=== PATIENT | male | born 1970 | race Caucasian/White ===

== ENCOUNTER → 2020-05-13 09:35 | Outpatient (BNVA) | payer MEDICARE, OTHER, SELFPAY | PROVIDERS: PCP Internal Medicine; Referring Provider Internal Medicine; Visit Provider Surgery Vascular Surgery | DX: I83.11 Varicose veins of right lower extremity with inflammation (principal); Z98.890 Other specified postprocedural states | CPT/HCPCS: 99213 ==

== ENCOUNTER 2020-06-11 09:37 | Outpatient (REF) | payer MEDICARE, OTHER, SELFPAY ==
[2020-06-11 13:44] LABS: Estimated Average Glucose 137 mg/dL; Hemoglobin A1c % 6.4 %
[2020-06-11 14:20] LABS: Alanine Aminotransferase 22 U/L (0-40); Albumin Level 4.3 g/dL (3.5-5.0); Alkaline Phosphatase 44 U/L (39-117); Anion Gap 13 (12-20); Aspartate Amino Transferase 17 U/L (5-37); Bilirubin Total 0.4 mg/dL (0.0-1.0); Blood Urea Nitrogen 14 mg/dL (9-16); Calcium 8.7 mg/dL (8.4-10.2); Carbon Dioxide 30 mmol/L (22-29); Chloride 101 mmol/L (96-108); Cholesterol 162 mg/dL; Estimated Glomerular Filt Rate > 60; Glucose Fasting 117 mg/dL (60-99); HDL Cholesterol 49 mg/dL; LDL Cholesterol Calculated 82 mg/dl; Potassium 4.8 mmol/l (3.3-5.1); Sodium 139 mmol/L (135-145); Total Protein 7.5 g/dL (6.5-8.0); Triglycerides 159 mg/dL
[2020-06-11 14:23] LABS: Creatinine Urine 132.92 mg/dL; Microalbum/Creatinine Ratio Ur 4.5 ug/mg cr
== END 2020-06-11 09:38 | disposition home or self-care (01) ==
LOC: HO.HMGCLDS 09:37
PROVIDERS: PCP Internal Medicine; Visit Provider Internal Medicine
DX: E11.59 Type 2 diabetes mellitus with other circulatory complications (principal); I10 Essential (primary) hypertension; I73.9 Peripheral vascular disease, unspecified; L97.909 Non-pressure chronic ulcer of unspecified part of unspecified lower leg with unspecified severity; I83.009 Varicose veins of unspecified lower extremity with ulcer of unspecified site
CPT/HCPCS: 80053; 80061; 82043; 83036

== ENCOUNTER 2020-10-19 08:25 | Outpatient (REF) | payer MEDICARE, OTHER, SELFPAY ==
[2020-10-19 11:32] LABS: Estimated Average Glucose 137 mg/dL; Hemoglobin A1c % 6.4 %
[2020-10-19 11:39] LABS: Alanine Aminotransferase 25 U/L (0-40); Albumin Level 4.3 g/dL (3.5-5.0); Alkaline Phosphatase 48 U/L (39-117); Anion Gap 13 (12-20); Aspartate Amino Transferase 21 U/L (5-37); Bilirubin Total 0.8 mg/dL (0.0-1.0); Blood Urea Nitrogen 16 mg/dL (9-16); Calcium 8.8 mg/dL (8.4-10.2); Carbon Dioxide 28 mmol/L (22-29); Chloride 104 mmol/L (96-108); Cholesterol 155 mg/dL; Estimated Glomerular Filt Rate > 60; Glucose Fasting 123 mg/dL (60-99); HDL Cholesterol 44 mg/dL; LDL Cholesterol Calculated 90 mg/dl; Potassium 4.5 mmol/L (3.3-5.1); Sodium 140 mmol/L (135-145); Total Protein 7.3 g/dL (6.5-8.0); Triglycerides 107 mg/dL
[2020-10-19 12:08] LABS: Microalbum/Creatinine Ratio Ur 7.1 ug/mg cr
== END 2020-10-19 08:26 | disposition home or self-care (01) ==
LOC: HO.HMGCLDS 08:25
PROVIDERS: PCP Internal Medicine; Visit Provider Internal Medicine
DX: E11.59 Type 2 diabetes mellitus with other circulatory complications (principal); I10 Essential (primary) hypertension; I73.9 Peripheral vascular disease, unspecified; L97.909 Non-pressure chronic ulcer of unspecified part of unspecified lower leg with unspecified severity; I83.009 Varicose veins of unspecified lower extremity with ulcer of unspecified site
CPT/HCPCS: 36415; 80053; 80061; 82043; 83036

== ENCOUNTER 2020-10-21 11:08 | Outpatient (REF) | payer MEDICARE, OTHER, SELFPAY ==
[2020-10-21 16:25] LABS: CT PCR NOT DETECTED (Not Detect.); NG PCR NOT DETECTED (Not Detect.)
[2020-10-22 08:19] LABS: HIV AB/AG Nonreactive (Nonreactive); HIV Num 1 0.09 S/CO (0.00-0.99)
[2020-10-22 08:39] LABS: Syphilis Screen Nonreactive (Nonreactive)
== END 2020-10-21 11:09 | disposition home or self-care (01) ==
LOC: HO.HMGCLDS 11:08
PROVIDERS: PCP Internal Medicine; Visit Provider Internal Medicine
DX: E11.9 Type 2 diabetes mellitus without complications (principal)
CPT/HCPCS: 86780; 87389; 87491; 87591

== ENCOUNTER 2020-11-25 08:47 | Outpatient (RCR) | payer MEDICARE, OTHER, SELFPAY | END 2021-02-22 10:00 | disposition home or self-care (01) | LOC: HO.WCC 08:47 | PROVIDERS: PCP Internal Medicine; Visit Provider Surgery | DX: E11.622 Type 2 diabetes mellitus with other skin ulcer (principal); L97.322 Non-pressure chronic ulcer of left ankle with fat layer exposed; S80.12XD Contusion of left lower leg, subsequent encounter; I87.312 Chronic venous hypertension (idiopathic) with ulcer of left lower extremity; L23.9 Allergic contact dermatitis, unspecified cause; L03.90 Cellulitis, unspecified; D68.59 Other primary thrombophilia; I10 Essential (primary) hypertension; Z79.01 Long term (current) use of anticoagulants; Z87.891 Personal history of nicotine dependence; Z86.718 Personal history of other venous thrombosis and embolism; Z79.84 Long term (current) use of oral hypoglycemic drugs; Z79.2 Long term (current) use of antibiotics | CPT/HCPCS: 11042; 15271; 15275; 29581; 99212; Q4187 ==

== ENCOUNTER 2021-01-10 18:11 | Emergency (ER) | payer MEDICARE, OTHER, SELFPAY ==
--- NOTE | ~2021-01-10 | US_ITS ---
EXAMINATION: US VENOUS ULTRASOUND WITH DOPPLER LOWER EXTREMITY, LEFT CLINICAL INFORMATION: Swelling and redness COMPARISON: Directly compared to the 03/15/2020 ultrasound TECHNIQUE: Ultrasound of the deep veins is performed from the hip to the calf with compression sonography and color and pulse Doppler assessment. Spectral analysis with color-flow imaging is performed. Patient has a bandage in the region of the calf which significantly limits evaluation of this area FINDINGS: Chronic appearing nonocclusive thrombus appears to be present in the common femoral vein and femoral vein. The popliteal vein and grossly patent. Calf veins are not able to be assessed due to overlying bandage. There is no significant popliteal fossa cyst. US/US venous duplex LE LT IMPRESSION: Likely chronic appearing nonocclusive thrombus within the femoral vein and common femoral vein. The prior 2019 study had demonstrated changes in the popliteal femoral vein. The patient reports a history of a chronic thrombus on the left side as well.
[2021-01-10 18:28] VITALS: BP 177/101; PULSE 77; RESP 16; TEMP 36.9; O2SAT 97; BMI 45.0
--- NOTE | 2021-01-10 20:43 | ED_ITS ---
HPI - General Adult General Chief complaint: General Medical Stated complaint: leg redness Time Seen by Provider: 01/10/21 19:37 Source: patient Mode of arrival: ambulatory Limitations: no limitations History of Present Illness HPI narrative: 50-year-old male with a past medical history of a clotting disorder on Coumadin, hypertension, hyperlipidemia and diabetes here with complaints of redness, swelling to the left medial knee. He tells me he had did have a fall about 1 week ago but never fell on the knee and just felt like he strained it. Over the last few days he has noticed some warmth, swelling and redness to the medial aspect of the knee. No pain with weight-bearing or range of motion. No posterior knee pain. No calf pain or swelling. He does have chronic wound to the medial ankle with a Unna boot on. The patient tells me that this wound has no redness or drainage or swelling and appears well. He denies any fevers or chills. He tells me that his blood sugars have been running stable. Related Data Home Medications Medication Instructions Recorded Confirmed cholecalciferol (vitamin D3) 25 25 mcg PO DAILY 05/13/20 10/21/20 mcg (1,000 unit) capsule vitamin B complex 1 tab PO DAILY 05/13/20 10/21/20 lancets #100 ea 06/17/20 10/21/20 Previous Rx's Medication Instructions Recorded warfarin 7.5 mg tablet 7.5 mg PO DAILY #90 tab 06/30/20 clobetasol 0.05 % topical cream 1 appl TOPICAL BID #45 g 07/06/20 simvastatin 40 mg tablet 40 mg PO DAILY 30 Days #90 tab 09/29/20 metformin 750 mg tablet,extended 1,500 mg PO DAILY #180 tab 10/21/20 release 24 hr atenolol 25 mg tablet 25 mg PO DAILY #90 tab 12/13/20 cephalexin 500 mg PO TID #21 cap 01/10/21 Allergies Allergy/AdvReac Type Severity Reaction Status Date / Time A & D Allergy Unknown anaphylaxis Verified 05/26/20 14:29 bacitracin [BACITRACIN] Allergy Unknown SEIZURE Verified 05/26/20 14:29 doxycycline Allergy Unknown rash Verified 05/26/20 14:29 Sulfa (Sulfonamide Allergy Unknown SWELLING Verified 05/26/20 14:29 Antibiotics) Review of Systems Review of Systems: Yes all other systems are reviewed and are negative Constitutional: Constitutional: Reports no additional constitutional complaints, Denies body ache(s), Denies chills, Denies fever(s), Denies headache(s) and Denies weakness Eyes: Eyes: Reports no additional eye complaints and Denies change in vision ENT: Reports system reviewed and no additional complaints, except as documented, Denies dizziness, Denies headache(s), Denies nasal congestion, Denies nasal discharge and Denies neck pain Cardiovascular: Cardiovascular: Reports no additional cardiovascular complaints, Denies chest pain, Denies leg edema and Denies dyspnea Respiratory: Respiratory: Reports no additional respiratory complaints, Denies cough and Denies dyspnea Gastrointestinal: Gastrointestinal: Reports no additional gastrointestinal complaints, Denies abdominal pain, Denies diarrhea, Denies nausea and Denies vomiting Genitourinary: Genitourinary: Denies urinary incontinence Musculoskeletal: Musculoskeletal: Reports no additional musculoskeletal complaints, Denies back pain, Denies arthralgias, Denies joint swelling, Denies neck pain, Denies numbness and Denies tingling Integumentary/Breasts: Skin/Breast: Reports system reviewed and no additional complaints, except as docu, Reports swelling, Reports erythema and Denies rash Neurologic: Reports system reviewed and no additional complaints, except as documented, Denies Abnormal speech present, Denies dizziness, Denies headache(s), Denies numbness, Denies tingling and Denies weakness PMFSH Past Medical History Attestation statement: The following information was validated with the patient. Source: old records reviewed and nursing notes reviewed Medical History DM type 2 (diabetes mellitus, type 2) DVT (deep venous thrombosis) Factor 5 Leiden mutation, heterozygous Hyperlipidemia Hypertension Obesity PVD (peripheral vascular disease) SOB (shortness of breath) Venous (peripheral) insufficiency Surgical History H/O vascular surgery Family History Family History Father CVD (cardiovascular disease) Mother CVD (cardiovascular disease) Daughter No problems noted. Son No problems noted. Social History Social History Unable to assess alcohol history related to: Unknown Advance Directives: No Advance Directives Information Provided: No Physical Exam Vital Signs: Vital Signs: Last Vital Signs Temp 98.4 F 01/10/21 18:28 Pulse 77 01/10/21 18:28 Resp 16 01/10/21 18:28 BP 177/101 H 01/10/21 18:28 Pulse Ox 97 01/10/21 18:28 Body Mass Index 45.0 Const: General: cooperative, healthy appearing, comfortable and no acute distress Orientation/consciousness: patient oriented x3 Limitations: no limitations HENMT: Head: Yes normal to inspection Ears: hearing grossly normal bilaterally General nose exam: Normal external nose present Face and sinus: Yes normal facial exam Mouth: Normal oral and palatal mucosa present Throat: Yes posterior oropharynx normal Eyes: General: appearance normal, both eyes and all related structures Pupils: Equal, round and reactive pupils present Neck: Neck: Yes normal visual inspection Chest: Chest palpation & inspection: normal inspection of the chest Resp: Effort & Inspection: normal respiratory effort Auscultation: clear to auscultation bilaterally Cardio: Rate: regular rate Rhythm: regular rhythm Peripheral pulses: Peripheral pulses 2+ throughout GI: Inspection: Yes normal to inspection Palpation (GI): Soft to palpation and nontender Auscultation: normal bowel sounds Back/Spine/Pelvis: Thoracic/Lumbar Spine: thoracic and lumbar spine normal to inspection Skin: General skin exam: no rashes or lesions noted Neuro: General: patient oriented x3, no focal motor deficits and normal sensation to monofilament Cranial nerves: Yes Equal, round and reactive pupils present Cognition (Neuro): normal cognition Speech: No Abnormal speech present Gait exam (Neuro): Normal gait present Motor exam (neuro): 5/5 motor strength present throughout Extrem: Other: To the medial aspect of the left knee there is approximately 10 cm circular area of erythema, warmth and swelling. It extends just to the posterior knee but there is no posterior swelling or discomfort. No calf pain, swelling General: Yes normal to inspection Course Course Course Narrative: 50-year-old male here with a circular area of redness, warmth and tenderness to the medial aspect of the left knee. There is a remote report of injury. Patient is on Coumadin for DVT history and his INR yesterday was 2.4. Will check ultrasound to rule out DVT. 2114-ultrasound shows chronic nonocclusive thrombus unchanged from previous. No acute DVT. Will treat with course of cephalexin for presumed cellulitis. Patient was given a copy of the report. The area was marked with a skin marker. Reviewed worrisome signs and symptoms such as increasing redness, swelling, fever and when to return to the emergency department. Comfortable with disc harge home. Medical Decision Making MDM Narrative Medical decision making narrative: DVT, cellulitis Medical Records Medical records reviewed: Yes I reviewed the patient's medical records. Lab Data Lab results reviewed: Yes I reviewed the patient's lab results. Imaging Data Venous US: Attestation: I personally reviewed and interpreted this imaging study as follows: Radiologist's impression: IMPRESSION: Likely chronic appearing nonocclusive thrombus within the femoral vein and common femoral vein. The prior 2019 study had demonstrated changes in the popliteal femoral vein. The patient reports a history of a chronic thrombus on the left side as well. Discharge Plan Discharge Clinical Impression: Cellulitis Qualifiers: Site of cellulitis: extremity Site of cellulitis of extremity: lower extremity Laterality: left Qualified Code(s): L03.116 - Cellulitis of left lower limb Patient Disposition: Home, Self-Care Instructions: Cellulitis (ED) Additional Instructions: Your ultrasound does show a chronic blood clot in the left leg. It is unchanged from previous. Continue your Coumadin We are treating you for presumed cellulitis The area was marked with a skin marker. Please return for increasing redness, swelling or fever Prescriptions: New cephalexin 500 mg capsule 500 mg PO TID Qty: 21 RF: 0 No Action warfarin 7.5 mg tablet 7.5 mg PO DAILY Qty: 90 RF: 3 clobetasol 0.05 % cream 1 appl topical BID Qty: 45 RF: 3 simvastatin 40 mg tablet 40 mg PO DAILY 30 Days Qty: 90 RF: 3 atenolol 25 mg tablet 25 mg PO DAILY Qty: 90 RF: 0 (DME) lancets [OneTouch UltraSoft Lancets] Misc See Rx Instructions .ROUTE .MEDSUPPLY Qty: 100 RF: 0 metformin 750 mg tablet extended release 24 hr 1,500 mg PO DAILY Qty: 180 RF: 3 cholecalciferol (vitamin D3) 25 mcg (1,000 unit) capsule 25 mcg PO DAILY RF: 0 vitamin B complex [B Complex-Vitamin B12] Tablet 1 tab PO DAILY RF: 0 Referrals: Esha Corbin MD [Primary Care Provider] - 2 days
== END 2021-01-10 21:23 | disposition home or self-care (01) ==
PROVIDERS: Emergency Provider Internal Medicine; PCP Internal Medicine
DX: L03.116 Cellulitis of left lower limb (principal); I82.512 Chronic embolism and thrombosis of left femoral vein; I10 Essential (primary) hypertension; E11.9 Type 2 diabetes mellitus without complications; Z79.01 Long term (current) use of anticoagulants
CPT/HCPCS: 93971; 99283

== ENCOUNTER 2021-01-24 10:56 | Outpatient (REF) | payer MEDICARE, OTHER, SELFPAY ==
[2021-01-24 14:17] LABS: Creatinine Urine 152.51 mg/dL; Microalbum/Creatinine Ratio Ur 8.5 ug/mg cr
[2021-01-24 14:20] LABS: Estimated Average Glucose 143 mg/dL; Hemoglobin A1c % 6.6 %
[2021-01-24 14:24] LABS: Alanine Aminotransferase 27 U/L (0-40); Albumin Level 4.4 g/dL (3.5-5.0); Alkaline Phosphatase 52 U/L (39-117); Anion Gap 14 (12-20); Aspartate Amino Transferase 22 U/L (5-37); Bilirubin Total 0.5 mg/dL (0.0-1.0); Blood Urea Nitrogen 14 mg/dL (9-16); Calcium 9.2 mg/dL (8.4-10.2); Carbon Dioxide 25 mmol/L (22-29); Chloride 104 mmol/L (96-108); Estimated Glomerular Filt Rate > 60; Glucose Fasting 120 mg/dL (60-99); Potassium 4.6 mmol/L (3.3-5.1); Sodium 138 mmol/L (135-145); Total Protein 7.6 g/dL (6.5-8.0)
[2021-01-24 14:33] LABS: Syphilis Screen Nonreactive (Nonreactive)
[2021-01-25 00:05] LABS: CT PCR NOT DETECTED (Not Detect.); NG PCR NOT DETECTED (Not Detect.)
[2021-01-25 09:15] LABS: HBsAGNum1 0.23 S/CO (0.00-0.99); Hepatitis B Surface Antigen Negative (Negative)
[2021-01-25 10:14] LABS: HIV AB/AG Nonreactive (Nonreactive); HIV Num 1 0.06 S/CO (0.00-0.99); ~HepC Num1 0.27 S/CO (0.00-0.79); ~Hepatitis C Antibody Nonreactive (Nonreactive)
== END 2021-01-24 10:57 | disposition home or self-care (01) ==
LOC: HO.HMGCLDS 10:56
PROVIDERS: PCP Internal Medicine; Visit Provider Internal Medicine
DX: Z01.84 Encounter for antibody response examination (principal); Z11.3 Encounter for screening for infections with a predominantly sexual mode of transmission; Z11.4 Encounter for screening for human immunodeficiency virus [HIV]; E11.9 Type 2 diabetes mellitus without complications; E78.5 Hyperlipidemia, unspecified; I10 Essential (primary) hypertension; A64 Unspecified sexually transmitted disease
CPT/HCPCS: 80053; 82043; 83036; 86780; 86803; 87340; 87389; 87491; 87591

== ENCOUNTER 2021-02-18 21:28 | Emergency (ER) | payer MEDICARE, OTHER, SELFPAY ==
[2021-02-18 21:58] VITALS: BP 146/89; PULSE 87; RESP 18; TEMP 36.6; O2SAT 97; BMI 45.0
--- NOTE | 2021-02-18 23:22 | ED.SKABFB ---
HPI - Skin/Abscess/Foreign Bdy General Chief complaint: Skin/Abscess/Foreign Body Stated complaint: nuñez pain Time Seen by Provider: 02/18/21 23:19 Source: patient Mode of arrival: ambulatory Limitations: no limitations History of Present Illness HPI narrative: Patient w3ith history of cellulitis in the left leg with poor circulation treated with Keflex for 10 days off medicine for the last 10 days noticed slight redness and warmth the left nuñez area at this time for last 2- 3 days patient does have a small open wound in the heel of the same leg which is getting better followed by wound clinic no fever no chills Related Data Home Medications Medication Instructions Recorded Confirmed cholecalciferol (vitamin D3) 25 25 mcg PO DAILY 05/13/20 01/27/21 mcg (1,000 unit) capsule vitamin B complex 1 tab PO DAILY 05/13/20 01/27/21 Previous Rx's Medication Instructions Recorded warfarin 7.5 mg tablet 7.5 mg PO DAILY #90 tab 06/30/20 clobetasol 0.05 % topical cream 1 appl TOPICAL BID #45 g 07/06/20 simvastatin 40 mg tablet 40 mg PO DAILY 30 Days #90 tab 09/29/20 metformin 750 mg tablet,extended 1,500 mg PO DAILY #180 tab 10/21/20 release 24 hr atenolol 25 mg tablet 25 mg PO DAILY #90 tab 02/04/21 lancets #100 ea 02/04/21 blood sugar diagnostic #100 ea 02/08/21 cephalexin 500 mg PO QID 10 Days #40 cap 02/18/21 doxycycline hyclate 100 mg PO BID #20 cap 02/18/21 Allergies Allergy/AdvReac Type Severity Reaction Status Date / Time A & D Allergy Unknown anaphylaxis Verified 01/27/21 13:02 bacitracin [BACITRACIN] Allergy Unknown SEIZURE Verified 01/27/21 13:02 Sulfa (Sulfonamide Allergy Unknown SWELLING Verified 01/27/21 13:02 Antibiotics) Review of Systems Review of Systems: Yes all other systems are reviewed and are negative PMFSH Past Medical History Medical History DM type 2 (diabetes mellitus, type 2) DVT (deep venous thrombosis) Factor 5 Leiden mutation, heterozygous Hyperlipidemia Hypertension Obesity PVD (peripheral vascular disease) SOB (shortness of breath) STD (male) Venous (peripheral) insufficiency Surgical History H/O vascular surgery Family History Family History Father CVD (cardiovascular disease) Mother CVD (cardiovascular disease) Daughter No problems noted. Son No problems noted. Social History Social History Unable to assess alcohol history related to: Unknown Advance Directives: No Advance Directives Information Provided: No Physical Exam Vital Signs: Vital Signs: Last Vital Signs Temp 97.9 F 02/18/21 21:58 Pulse 87 02/18/21 21:58 Resp 18 02/18/21 21:58 BP 146/89 H 02/18/21 21:58 Pulse Ox 97 02/18/21 21:58 Body Mass Index 45.0 Const: General: comfortable and no acute distress Resp: Effort & Inspection: normal respiratory effort Auscultation: clear to auscultation bilaterally Cardio: Rate: regular rate Rhythm: regular rhythm Heart sounds: S1 normal heart sound present and S2 normal heart sound present Extrem: Upper/lower leg/hip images: 1. Slight erythema 10 x 10 cm area no open wound local warmth+ no calf tenderness MDM - Skin/Abscess/Foreign Bdy MDM Narrative Medical decision making narrative: Patient with early cellulitis left leg on Coumadin unlikely to be DVT as his INR was 2.1 today. Will treat patient with doxycycline and Keflex advised to follow with Wound Clinic/PCP if not better Discharge Plan Discharge Clinical Impression: Cellulitis Patient Disposition: Home, Self-Care Instructions: Cellulitis (ED) Additional Instructions: Take antibiotics as prescribed Follow-up with your wound clinic/PCP report to ER if redness/swelling get worse Prescriptions: New doxycycline hyclate 100 mg capsule 100 mg PO BID Qty: 20 RF: 0 cephalexin 500 mg capsule 500 mg PO QID 10 Days Qty: 40 RF: 0 No Action warfarin 7.5 mg tablet 7.5 mg PO DAILY Qty: 90 RF: 3 clobetasol 0.05 % cream 1 appl topical BID Qty: 45 RF: 3 simvastatin 40 mg tablet 40 mg PO DAILY 30 Days Qty: 90 RF: 3 (DME) lancets [OneTouch UltraSoft Lancets] Misc See Rx Instructions .ROUTE .MEDSUPPLY Qty: 100 RF: 6 atenolol 25 mg tablet 25 mg PO DAILY Qty: 90 RF: 3 (DME) blood sugar diagnostic Strip See Rx Instructions .ROUTE .MEDSUPPLY Qty: 100 RF: 3 metformin 750 mg tablet extended release 24 hr 1,500 mg PO DAILY Qty: 180 RF: 3 cholecalciferol (vitamin D3) 25 mcg (1,000 unit) capsule 25 mcg PO DAILY RF: 0 vitamin B complex [B Complex-Vitamin B12] Tablet 1 tab PO DAILY RF: 0 Interventions: ED Discharge Assessment Last Done: 02/18/21 23:51 Discharge Date/Time: 02/18/21 23:52
[2021-02-18] MEDS: cephALEXin 500 MG CAPSULE PO (23:46)
== END 2021-02-18 23:52 | disposition home or self-care (01) ==
PROVIDERS: Emergency Provider Internal Medicine; PCP Internal Medicine
DX: L03.116 Cellulitis of left lower limb (principal); D68.51 Activated protein C resistance; I10 Essential (primary) hypertension; E11.9 Type 2 diabetes mellitus without complications; Z86.718 Personal history of other venous thrombosis and embolism; Z79.01 Long term (current) use of anticoagulants; Z79.84 Long term (current) use of oral hypoglycemic drugs; Z79.899 Other long term (current) drug therapy
CPT/HCPCS: 99283

== ENCOUNTER → 2021-02-24 09:49 | Outpatient (BNVA) | payer MEDICARE, OTHER, SELFPAY | PROVIDERS: PCP Internal Medicine; Visit Provider Surgery Vascular Surgery | DX: I83.12 Varicose veins of left lower extremity with inflammation (principal) | CPT/HCPCS: 99212 ==

== ENCOUNTER 2021-03-09 07:40 | Outpatient (REF) | payer MEDICARE, OTHER, SELFPAY ==
--- NOTE | ~2021-03-09 | US_ITS ---
EXAMINATION: BILATERAL LOWER EXTREMITY VENOUS ULTRASOUND (Reflux Exam) CLINICAL INDICATION: This is a 50-year-old male with venous insufficiency. Status post treatment. COMPARISON: None. TECHNIQUE: Color flow triplex imaging and compression Doppler was performed to evaluate both the deep and the superficial systems bilaterally. To evaluate the superficial system, the examination was performed in the upright position. Color-flow Doppler ultrasound and compression ultrasound were utilized. In addition, maneuvers were utilized to demonstrate reflux. FINDINGS: 1. DEEP VENOUS ULTRASOUND OF THE RIGHT LOWER EXTREMITY: Common Femoral Vein: There is reflux in the right common femoral vein with the reflux time of 1208 ms. Femoral vein: Compressible, normal color flow and augmentation. Popliteal Vein: Compressible, normal augmentation. Deep Reflux: There is deep vein reflux in the right common femoral vein.. There is no evidence of a Nunez's cyst. 2. SUPERFICIAL ULTRASOUND WITH DOPPLER OF RIGHT LOWER EXTREMITY GREAT SAPHENOUS VEIN: Saphenofemoral junction: 1.2 cm. The reflux time is 2116 ms. Mid thigh: 0.4 cm. No reflux is seen at this level. Above knee: 0.5 cm. The reflux time is 3032 ms. Below knee: 0.4 cm. The reflux time is 3168 ms. Mid calf: 0.4 cm. The reflux time is 3308 ms. Ankle: 0.2 cm. There is no reflux. GSV REFLUX: There is great saphenous vein reflux seen at the saphenofemoral junction and down the leg. DUPLICATED GREAT SAPHENOUS VEIN: There is a duplicated lateral great saphenous vein measuring 0.5 cm with reflux at the saphenofemoral junction of 2988 ms. This measures 0.4 cm in the mid thigh. There is also reflux of 3292 ms in the mid thigh. SMALL SAPHENOUS VEIN: Upper: 0.2 cm. The reflux time is 1088 ms at the sapheno popliteal junction. Lower: 0.1 cm. There is no reflux this level. SSV REFLUX: There is reflux in the small saphenous vein and it is seen at the junction. VEIN OF GIACOMINI: None Imaged. PERFORATORS: There is a 0.2 cm [employer] in the mid calf without reflux. VARICOSITIES: There are 0.4 cm varicose veins in the proximal thigh, knee and proximal calf with greater than 3 seconds of reflux. 3. DEEP VENOUS ULTRASOUND OF THE LEFT LOWER EXTREMITY: Common Femoral Vein: There is chronic changes in the left common femoral vein and proximal left femoral vein and popliteal vein consistent with chronic deep vein thrombosis. Furthermore, there is reflux throughout the left deep vein system. The left common femoral vein reflux is 1124 ms. The left popliteal vein measures 2172 ms. Femoral vein: There is chronic changes in the left common femoral vein and proximal left femoral vein and popliteal vein, respectively, consistent with chronic deep vein thrombosis. Furthermore, there is reflux throughout the left deep vein system. The left common femoral vein reflux is 1124 ms. The left popliteal vein measures 2172 ms. Popliteal Vein: There is chronic changes in the left common femoral vein and proximal left femoral vein and popliteal vein, respectively, consistent with chronic deep vein thrombosis. Furthermore, there is reflux throughout the left deep vein system. The left common femoral vein reflux is 1124 ms. The left popliteal vein measures 2172 ms. Deep Reflux: There is chronic changes in the left common femoral vein and proximal left femoral vein and popliteal vein, respectively, consistent with chronic deep vein thrombosis. Furthermore, there is reflux throughout the left deep vein system. The left common femoral vein reflux is 1124 ms. The left popliteal vein measures 2172 ms. There is no evidence of a Nunez's cyst. 4. SUPERFICIAL ULTRASOUND WITH DOPPLER OF LEFT LOWER EXTREMITY GREAT SAPHENOUS VEIN: Saphenofemoral junction: 1.0 cm. There is reflux of 1004 ms at this level. The remainder of the great saphenous vein is not seen. GSV REFLUX: Reflux is seen at the saphenofemoral junction. DUPLICATED GREAT SAPHENOUS VEIN: None SMALL SAPHENOUS VEIN: Upper: 0.3 cm Lower: 0.2 cm SSV REFLUX: There is no reflux. VEIN OF GIACOMINI: None Imaged. PERFORATORS: There are 0.4 cm and 0.3 cm, respectively, perforators without evidence of reflux. VARICOSITIES: There are 1.1 cm varicose veins near the saphenofemoral junction without reflux. There are 0.3 cm varicose veins in the distal thigh with a reflux time 1924 ms. US/US venous duplex LE BI IMPRESSION: 1. The right great saphenous vein is essentially patent with reflux at the junction extending down the leg. 2. 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 3. There is a patent right small saphenous vein with reflux at the junction. This vessel is very small, measuring 0.2 cm. 4. There are right-sided varicose veins measuring 0.4 cm at the knee and proximal calf with greater than 3 seconds of reflux. 5. There is reflux in the right common femoral vein as noted. 6. A short segment of left great saphenous vein is seen with reflux at the junction. The remainder of the left great saphenous vein is absent. 7. The left small saphenous vein is patent without evidence of reflux. 8. There are left mid thigh and distal thigh varicose veins. There is reflux in the distal thigh varicose veins. 9. There is chronic deep vein thrombosis changes in the left leg.
== END 2021-03-09 07:41 | disposition home or self-care (01) ==
LOC: HO.US 07:40
PROVIDERS: Visit Provider Surgery Vascular Surgery
DX: I83.893 Varicose veins of bilateral lower extremities with other complications (principal); I83.12 Varicose veins of left lower extremity with inflammation
CPT/HCPCS: 93970

== ENCOUNTER → 2021-03-29 12:54 | Outpatient (BNVA) | payer MEDICARE, OTHER, SELFPAY | PROVIDERS: PCP Internal Medicine; Visit Provider Surgery Vascular Surgery | DX: I83.12 Varicose veins of left lower extremity with inflammation (principal) | CPT/HCPCS: 99212 ==

== ENCOUNTER 2021-05-13 10:13 | Outpatient (REF) | payer MEDICARE, OTHER, SELFPAY ==
[2021-05-13 11:36] LABS: Hematocrit 42.9 % (42-52); Hemoglobin 14.5 g/dl (14.0-18.0); Mean Corpuscular HGB Conc 33.8 g/dl (31.0-36.0); Mean Corpuscular Hemoglobin 30.9 pg (27.0-33.0); Mean Corpuscular Volume 91.5 fL (80-98); Mean Platelet Volume 9.7 fL (9.4-12.4); Platelet Count 204 X10*3/uL (160-400); Red Blood Count 4.69 X10*6/uL (4.60-5.80); Red Cell Distribution Width 12.8 % (11.0-16.0); White Blood Count 7.7 X10*3/uL (4.8-10.8)
[2021-05-13 11:49] LABS: Alanine Aminotransferase 27 U/L (0-40); Albumin Level 4.1 g/dL (3.5-5.0); Alkaline Phosphatase 49 U/L (39-117); Anion Gap 11 (12-20); Aspartate Amino Transferase 25 U/L (5-37); Bilirubin Total 0.6 mg/dL (0.0-1.0); Blood Urea Nitrogen 12 mg/dL (9-16); Calcium 9.1 mg/dL (8.4-10.2); Carbon Dioxide 26 mmol/L (22-29); Chloride 102 mmol/L (96-108); Cholesterol 148 mg/dL; Estimated Glomerular Filt Rate > 60; Glucose Fasting 139 mg/dL (60-99); HDL Cholesterol 40 mg/dL; LDL Cholesterol Calculated 75 mg/dl; Potassium 4.4 mmol/L (3.3-5.1); Sodium 135 mmol/L (135-145); Total Protein 7.2 g/dL (6.5-8.0); Triglycerides 169 mg/dL
[2021-05-13 12:05] LABS: HBS Num1 21.57 mIU/mL (0-7.99); HBc Num1 0.07 S/CO (0.00-0.79); HBsAGNum1 0.14 S/CO (0.00-0.99); Hepatitis B Core Antibody Nonreactive (Nonreactive); Hepatitis B Surface Antigen Negative (Negative); ~Hepatitis B Surface Antibody REACTIVE (Nonreactive)
[2021-05-13 12:06] LABS: Syphilis Screen Nonreactive (Nonreactive)
[2021-05-13 12:12] LABS: Prostate Specific Antigen Scr 0.53 ng/mL (<0.05-4.0)
[2021-05-13 12:14] LABS: HIV AB/AG Nonreactive (Nonreactive); HIV Num 1 0.08 S/CO (0.00-0.99); ~HepC Num1 0.28 S/CO (0.00-0.79); ~Hepatitis C Antibody Nonreactive (Nonreactive)
[2021-05-13 14:02] LABS: Appearance Urine CLEAR; Color Urine YELLOW; Glucose Urine UA NEG (NEG); Leukocyte Esterase Urine NEG (NEG); Nitrite Urine NEG (NEG); Specific Gravity - Urine <= 1.005 (1.005-1.025); Urine Blood NEG (NEG); Urine Ketones NEG (NEG); Urine Protein NEG (NEG-TRACE)
[2021-05-14 10:35] LABS: CT PCR NOT DETECTED (Not Detect.); NG PCR NOT DETECTED (Not Detect.)
== END 2021-05-13 10:14 | disposition home or self-care (01) ==
LOC: HO.HMGCLDS 10:13
PROVIDERS: PCP Internal Medicine; Visit Provider Internal Medicine
DX: Z12.5 Encounter for screening for malignant neoplasm of prostate (principal); Z11.4 Encounter for screening for human immunodeficiency virus [HIV]; Z11.3 Encounter for screening for infections with a predominantly sexual mode of transmission; E11.9 Type 2 diabetes mellitus without complications; I10 Essential (primary) hypertension; E78.5 Hyperlipidemia, unspecified; A64 Unspecified sexually transmitted disease
CPT/HCPCS: 36415; 80053; 80061; 81003; 84153; 85027; 86704; 86706; 86780; 86803; 87340; 87389; 87491; 87591

== ENCOUNTER → 2021-08-18 09:49 | Outpatient (BNVA) | payer MEDICARE, OTHER, SELFPAY | PROVIDERS: PCP Internal Medicine; Referring Provider Internal Medicine; Visit Provider Internal Medicine Gastroenterology | DX: Z12.11 Encounter for screening for malignant neoplasm of colon (principal); D68.51 Activated protein C resistance; R13.14 Dysphagia, pharyngoesophageal phase | CPT/HCPCS: 99202 ==

== ENCOUNTER 2021-09-23 12:04 | Outpatient (REF) | payer MEDICARE, OTHER, SELFPAY ==
[2021-09-23 15:16] LABS: Hematocrit 44.4 % (42.0-52.0); Hemoglobin 14.6 g/dl (14.0-18.0); Mean Corpuscular HGB Conc 32.9 g/dl (31.0-36.0); Mean Corpuscular Hemoglobin 30.4 pg (27.0-33.0); Mean Corpuscular Volume 92.3 fL (80.0-98.0); Mean Platelet Volume 10.2 fL (9.4-12.4); Platelet Count 238 X10*3/uL (160-400); Red Blood Count 4.81 X10*6/uL (4.60-5.80); Red Cell Distribution Width 12.8 % (11.0-16.0)
[2021-09-23 15:25] LABS: Estimated Average Glucose 148 mg/dL; Hemoglobin A1c % 6.8 %
[2021-09-23 16:06] LABS: Syphilis Screen Nonreactive (Nonreactive)
[2021-09-23 16:49] LABS: Alanine Aminotransferase 30 U/L (0-40); Albumin Level 4.2 g/dL (3.5-5.0); Alkaline Phosphatase 49 U/L (39-117); Anion Gap 13 (12-20); Aspartate Amino Transferase 34 U/L (5-37); Bilirubin Total 0.6 mg/dL (0.0-1.0); Blood Urea Nitrogen 11 mg/dL (9-16); Calcium 9.1 mg/dL (8.4-10.2); Carbon Dioxide 25 mmol/L (22-29); Chloride 103 mmol/L (96-108); Estimated Glomerular Filt Rate > 60; Glucose Fasting 123 mg/dL (60-99); Potassium 4.4 mmol/L (3.3-5.1); Sodium 137 mmol/L (135-145); Total Protein 7.7 g/dL (6.5-8.0)
[2021-09-26 08:14] LABS: HIV AB/AG Nonreactive (Nonreactive); HIV Num 1 0.07 S/CO (0.00-0.99); ~HepC Num1 0.24 S/CO (0.00-0.79); ~Hepatitis C Antibody Nonreactive (Nonreactive)
== END 2021-09-23 12:05 | disposition home or self-care (01) ==
LOC: HO.HMGCLDS 12:04
PROVIDERS: Visit Provider Internal Medicine
DX: Z00.00 Encounter for general adult medical examination without abnormal findings (principal); Z11.4 Encounter for screening for human immunodeficiency virus [HIV]; E11.9 Type 2 diabetes mellitus without complications; E78.5 Hyperlipidemia, unspecified; I10 Essential (primary) hypertension
CPT/HCPCS: 36415; 80053; 83036; 85027; 86780; 86803; 87389

== ENCOUNTER 2021-09-29 19:44 | Emergency (ER) | payer MEDICARE, OTHER, SELFPAY ==
[2021-09-29 19:52] VITALS: BP 145/92; BP 188/101; PULSE 70; PULSE 90; RESP 16; TEMP 36.3; O2SAT 96; O2SAT 99; BMI 44.3
--- NOTE | 2021-09-29 23:00 | PC.NURSE ---
ATTEMPTED TO CALL PATIENT INTO ED FROM WAITING ROOM. NO ANSWER AT THIS TIME.
== END 2021-09-29 23:25 | disposition left against medical advice (07) ==
LOC: HO.ED 23:26
PROVIDERS: Emergency Provider Emergency Medicine
DX: R11.0 Nausea (principal); R42 Dizziness and giddiness
CPT/HCPCS: 99281; 99282

== ENCOUNTER 2021-09-30 16:46 | Emergency (ER) | payer MEDICARE, MEDICAID, SELFPAY ==
--- NOTE | ~2021-09-30 | CT_ITS ---
EXAMINATION: CTA OF THE HEAD/NECK CLINICAL INFORMATION: Syncope. On Coumadin. COMPARISON: Head CT 02/25/2019 TECHNIQUE: A routine non contrast head CT was performed followed by a 70 mL bolus of Omnipaque 350. Subsequent multidetector helical imaging was performed of the head and neck. Delayed post contrast imaging was also performed through the head. Multiplanar reformats and MIP were also obtained. Internal carotid artery stenoses are assessed in accordance with NASCET criteria unless otherwise indicated. This CT examination was performed using dose optimization techniques as appropriate, variously including the following: *Automated exposure control *Adjustment of mA and/or kV according to patient size (this includes techniques or standardized protocols for targeted exams where dose is matched to indication/reason for exam; i.e. extremities or head) *Use of iterative reconstruction technique DLP: 2840 mGy-cm. FINDINGS: CT HEAD: There is no evidence of acute intracranial hemorrhage or territorial infarction. No abnormal mass effect or midline shift is seen. Vigil to white matter differentiation is well preserved. No extra-axial fluid collections are identified. No suspicious leptomeningeal or parenchymal enhancement on the post-contrast images. No hydrocephalus. No significant volume loss. Chronic left frontal lobe encephalomalacia. The osseous structures and soft tissues are normal. The mastoid air cells and visualized portions of the paranasal sinuses are well aerated. CTA NECK: The aortic arch is of normal caliber and the origins of the great vessels are patent without evidence of significant stenosis. The cervical portion of the vertebral arteries are patent bilaterally. No luminal irregularities in the common carotid arteries and the carotid bifurcations are patent bilaterally. Mild calcified and noncalcified plaque at the origins of both internal carotid arteries does not result in significant stenosis. The cervical portion of the internal carotid arteries are of normal caliber. The laryngeal structures and pharyngeal mucosal spaces are unremarkable. The oral cavity appears normal. The parotid and submandibular glands are normal. No pathologically enlarged lymph nodes. The thyroid gland is unremarkable. The lung apices are clear without evidence of pneumothorax. Spinal alignment is maintained. Mild cervical spondylosis is noted. CTA HEAD: The intradural portion of the vertebral arteries are of normal caliber. The basilar, superior cerebellar, and posterior communicating arteries are patent. The posterior, middle, and anterior cerebral arteries are of normal caliber without evidence of significant luminal irregularity. No definite intracranial aneurysms. CT/CT angio head neck IMPRESSION: 1. No acute intracranial finding. 2. No large vessel occlusion or flow-limiting stenosis.
--- NOTE | ~2021-09-30 | XR_ITS ---
EXAMINATION: XR CHEST CLINICAL INFORMATION: Hypertension COMPARISON: None TECHNIQUE: Frontal view of the chest was obtained. FINDINGS: No significant abnormality is noted involving the heart, lungs, mediastinum, bony thorax or soft tissues. XR/XR chest 1V IMPRESSION: No radiographic evidence of acute cardiopulmonary disease.
[2021-09-30 16:49] VITALS: BP 157/102; PULSE 81; RESP 18; TEMP 36.7; O2SAT 99; BMI 44.3
--- NOTE | 2021-09-30 19:38 | ECG_ITS ---
Test Reason : HTN Blood Pressure : / mmHG Vent. Rate : 068 BPM Atrial Rate : 068 BPM P-R Int : 262 ms QRS Dur : 072 ms QT Int : 388 ms P-R-T Axes : 053 000 011 degrees QTc Int : 412 ms Sinus rhythm with 1st degree A-V block Otherwise normal ECG When compared with ECG of 20-MAR-2020 16:21, No significant change was found Referred By: Generic ED Physician Electronically Signed By:OWEN MERCEDES
--- NOTE | 2021-09-30 20:02 | ED.GENADULT ---
HPI - General Adult General Chief complaint: General Medical Stated complaint: Dizziness/HBP Time Seen by Provider: 09/30/21 20:02 Source: patient Mode of arrival: ambulatory Limitations: no limitations History of Present Illness HPI narrative: Patient with history of factor 5 laden deficiency with history of DVTs on Coumadin comes here for near-syncope episodes multiple times for last few years getting more often no relation with portionno chest pain or palpitation all of a sudden patient feel face flushed no neck pain no headache no nausea no vomiting no chest pain or palpitation no relation of dizziness with head movement or posture change Related Data Home Medications Medication Instructions Recorded Confirmed cholecalciferol (vitamin D3) 25 25 mcg PO DAILY 05/13/20 09/29/21 mcg (1,000 unit) capsule metformin 750 mg tablet,extended 1,500 mg PO DAILY@1700 09/23/21 09/29/21 release 24 hr simvastatin 40 mg tablet 40 mg PO BEDTIME 09/23/21 09/29/21 Previous Rx's Medication Instructions Recorded clobetasol 0.05 % topical cream 1 appl TOPICAL BID #45 g 07/06/20 atenolol 25 mg tablet 25 mg PO DAILY #90 tab 02/04/21 lancets (OneTouch UltraSoft #100 ea 02/04/21 Lancets) blood sugar diagnostic #100 ea 05/26/21 blood sugar diagnostic (OneTouch #100 ea 06/02/21 Ultra Test) blood-glucose meter (OneTouch #1 ea 06/02/21 Ultra2 Meter) warfarin 7.5 mg tablet 7.5 mg PO DAILY #90 tab 06/02/21 lancing device with lancets kit #1 ea 06/03/21 (OneTouch Delica Lanc Device) lancets 33 gauge (OneTouch Delica #100 ea 06/09/21 Lancets) bisacodyl 5 mg tablet,delayed 10 mg PO ONCE 2 Days #4 tab 08/18/21 release (Dulcolax (bisacodyl)) polyethylene glycol 3350 17 17 g PO DAILY 1 Days #238 g 08/18/21 gram/dose oral powder (Miralax) Allergies Allergy/AdvReac Type Severity Reaction Status Date / Time A & D Allergy Severe anaphylaxis Verified 09/29/21 11:26 bacitracin [BACITRACIN] Allergy Severe Verified 09/29/21 11:26 SEIZURE , anaphylaxis Sulfa (Sulfonamide Allergy Mild SWELLING Verified 09/29/21 11:26 Antibiotics) Review of Systems Review of Systems: Yes all other systems are reviewed and are negative [facility] Past Medical History Medical History Annual physical exam DM type 2 (diabetes mellitus, type 2) DVT (deep venous thrombosis) Factor 5 Leiden mutation, heterozygous Hyperlipidemia Hypertension Obesity PVD (peripheral vascular disease) Skin abnormalities SOB (shortness of breath) STD (male) Venous (peripheral) insufficiency Surgical History H/O vascular surgery Family History Family History Father CVD (cardiovascular disease) Mother CVD (cardiovascular disease) Daughter No problems noted. Son No problems noted. Social History Social History Housing: House Are you a primary aged or disabled care worker to a significant other at home: No Do you presently have visiting nurse or other home services: No Unable to assess alcohol history related to: Unknown Patient Tobacco Use Status: Former Tobacco user Quit Date: 2010 Tobacco use type: Cigarette e-Cigarette/Vaping Use: Never Used Advance Directives: No Advance Directives Information Provided: No Current occupational status: employed Physical Exam ED Vital Signs: Vital Signs - 24 hr 09/30/21 16:49 Temperature 98.0 F Pulse Rate 81 Respiratory Rate 18 Blood Pressure 157/102 H Pulse Oximetry 99 BMI result Body Mass Index 44.3 Appearance: Alert. Oriented X3. No acute distress. Eyes: PERRLA, No Nystagmus ENT: Pharynx normal. Oral Mucosa moist Neck: Normal inspection. Neck supple. No carotid bruit CVS: Normal heart rate and rhythm. Pulses normal. Respiratory: No respiratory distress. Equal air entry bilateral, no wheezing/rales/rhonchi Abdomen: Soft and nontender. Bowel sounds are present, no mass palpable, no CVA tenderness Skin: Skin warm and dry. Normal skin color. Normal skin turgor. Extremities: No lower extremity edema. No calf tenderness Neuro: Oriented X 3. No motor deficit. No sensory deficit.No cerebellar signs , cranial nerves II-XII intact Medical Decision Making MDM Narrative Medical decision making narrative: Patient with nonspecific near-syncope episodes without complete loss of conscious at feels flushed face ,workup negative for any acute ischemic or CTA head neck negative for any large vessel occlusion patient advised to follow with PCP for further workup Lab Data Lab results reviewed: Yes I reviewed the patient's lab results. Result diagrams: 09/30/21 21:03 09/30/21 21:03 Labs: Lab Results 09/30/21 09/30/21 09/30/21 Range/Units 21:03 21:03 21:03 WBC 8.1 (4.8-10.8) X10*3/uL RBC 4.84 (4.60-5.80) X10*6/uL Hgb 14.8 (14.0-18.0) g/dl Hct 43.9 (42.0-52.0) % MCV 90.7 (80.0-98.0) fL MCH 30.6 (27.0-33.0) pg MCHC 33.7 (31.0-36.0) g/dl RDW 12.8 (11.0-16.0) % Plt Count 225 (160-400) X10*3/uL MPV 9.3 L (9.4-12.4) fL Immature Gran % (Auto) 0.5 H (0.0-0.4) % Neut % (Auto) 62.9 (45-73) % Lymph % (Auto) 27.6 (20-40) % [place] % (Auto) 7.0 (2-11) % Eos % (Auto) 1.6 (0-4) % Baso % (Auto) 0.4 (0-2) % Lymph # (Auto) 2.2 (1.2-4.9) X10*3/uL [place] # (Auto) 0.6 (0.1-1.2) X10*3/uL Eos # (Auto) 0.1 (0.0-0.4) X10*3/uL Baso # (Auto) 0.0 (0.0-0.2) X10*3/uL Abs Immat Gran (auto) 0.04 H (0.00-0.03) X10*3/uL Absolute Neuts (auto) 5.1 (2.0-8.3) x10*3/uL Absolute Nucleated RBC 0.000 (0.0-0.012) X10*3/uL Nucleated RBC % (auto) 0.0 (0.0-0.2) /100WBC PT (9.9-13.0) SEC INR (0.9-1.1) APTT (24.1-38.0) SEC Sodium 137 (135-145) mmol/L Potassium 4.3 (3.3-5.1) mmol/L Chloride 103 (96-108) mmol/L Carbon Dioxide 25 (22-29) mmol/L Anion Gap 13 (12-20) BUN 13 (9-16) mg/dL Creatinine 0.84 (0.5-1.4) mg/dL Estim Creat Clear Calc 144.1 Estimated GFR > 60 Random Glucose 94 (60-115) mg/dL Calcium 9.6 (8.4-10.2) mg/dL Troponin I High Sens 13.8 (<3.5-35.0) ng/L 09/30/21 Range/Units 21:03 WBC (4.8-10.8) X10*3/uL RBC (4.60-5.80) X10*6/uL Hgb (14.0-18.0) g/dl Hct (42.0-52.0) % MCV (80.0-98.0) fL MCH (27.0-33.0) pg MCHC (31.0-36.0) g/dl RDW (11.0-16.0) % Plt Count (160-400) X10*3/uL MPV (9.4-12.4) fL Immature Gran % (Auto) (0.0-0.4) % Neut % (Auto) (45-73) % Lymph % (Auto) (20-40) % [place] % (Auto) (2-11) % Eos % (Auto) (0-4) % Baso % (Auto) (0-2) % Lymph # (Auto) (1.2-4.9) X10*3/uL [place] # (Auto) (0.1-1.2) X10*3/uL Eos # (Auto) (0.0-0.4) X10*3/uL Baso # (Auto) (0.0-0.2) X10*3/uL Abs Immat Gran (auto) (0.00-0.03) X10*3/uL Absolute Neuts (auto) (2.0-8.3) x10*3/uL Absolute Nucleated RBC (0.0-0.012) X10*3/uL Nucleated RBC % (auto) (0.0-0.2) /100WBC PT 25.5 H (9.9-13.0) SEC INR 2.2 H (0.9-1.1) APTT 72.1 H* (24.1-38.0) SEC Sodium (135-145) mmol/L Potassium (3.3-5.1) mmol/L Chloride (96-108) mmol/L Carbon Dioxide (22-29) mmol/L Anion Gap (12-20) BUN (9-16) mg/dL Creatinine (0.5-1.4) mg/dL Estim Creat Clear Calc Estimated GFR Random Glucose (60-115) mg/dL Calcium (8.4-10.2) mg/dL Troponin I High Sens (<3.5-35.0) ng/L ECG Data Attestation: I personally reviewed and interpreted this ECG as follows: Interpretation: Normal sinus rhythm with first-degree AV block normal axis no acute ST-T changes no change from previous EKGs no acute ischemia Discharge Plan Discharge Clinical Impression: Near syncope Patient Disposition: Home, Self-Care Instructions: Near Syncope (ED) Additional Instructions: Cause of your symptoms are not very clear Follow with PCP for further evaluation including stress test and Holter monitoring Prescriptions: No Action clobetasol 0.05 % cream 1 appl topical BID Qty: 45 3RF Rx Instructions: apply to the affected area twice a day for 10 days (DME) lancets [Active Optical MEMSTouch UltraSoft Lancets] Misc See Rx Instructions .ROUTE .MEDSUPPLY Qty: 100 6RF Rx Instructions: TID atenolol 25 mg tablet 25 mg PO DAILY Qty: 90 3RF (DME) blood-glucose meter [OneTouch Ultra2 Meter] Kit See Rx Instructions .Route Qty: 1 0RF Rx Instructions: As directed (DME) OneTouch Ultra Test Strip See Rx Instructions .Route Qty: 100 3RF Rx Instructions: As directed warfarin 7.5 mg tablet 7.5 mg PO DAILY Qty: 90 3RF (DME) lancing device with lancets [Active Optical MEMSTouch DelPopcorn network Lanc Device] Kit See Rx Instructions .Route Qty: 1 0RF Rx Instructions: testing blood sugar once daily (DME) lancets [OneTouch Delica Lancets] 33 gauge misc See Rx Instructions .Route Qty: 100 3RF Rx Instructions: test blood sugar daily metformin 750 mg tablet extended release 24 hr 1,500 mg PO DAILY@1700 0RF simvastatin 40 mg tablet 40 mg PO BEDTIME 0RF (DME) blood sugar diagnostic Strip See Rx Instructions .ROUTE .MEDSUPPLY Qty: 100 3RF Rx Instructions: test once a day cholecalciferol (vitamin D3) 25 mcg (1,000 unit) capsule 25 mcg PO DAILY 0RF bisacodyl [Dulcolax (bisacodyl)] 5 mg tablet,delayed release (DR/EC) 10 mg PO ONCE 2 Days Qty: 4 0RF Rx Instructions: Take 2 tablets at 12 pm 2 days before, Take 2 tablets at 12:00 1 day before colonoscopy. polyethylene glycol 3350 [Miralax] 17 gram/dose powder 17 g PO DAILY 1 Days Qty: 238 0RF Rx Instructions: Mix Miralax with 64 oz(8 cups) of Crystal light. Take 2 tablets of Dulcolax qt 12 pm. Wait to have your 1st bowel movement, then begin drinking Miralax. Drink a glass of Miralax every 10-15 minutes until you are finished. You will drink at least another 4 cups of clear liquid of your choice over the next 2 hours. Please drink as many clear liquids as possible You may have clear liquids up to four hours before your procedure Interventions: ED Discharge Assessment Last Done: 10/01/21 00:18 Discharge Date/Time: 10/01/21 00:19
[2021-09-30 21:08] LABS: MANUAL DIFF FLAG NO
[2021-09-30 21:09] LABS: Basophils Percent Auto 0.4 % (0-2); Eosinophils Absolute Auto 0.1 X10*3/uL (0.0-0.4); Eosinophils Percent Auto 1.6 % (0-4); Hematocrit 43.9 % (42.0-52.0); Hemoglobin 14.8 g/dl (14.0-18.0); Imm Gran Abs Auto 0.04 X10*3/uL (0.00-0.03); Imm Gran Pct Auto 0.5 % (0.0-0.4); Lymphocytes Absolute Auto 2.2 X10*3/uL (1.2-4.9); Lymphocytes Percent Auto 27.6 % (20-40); Mean Corpuscular HGB Conc 33.7 g/dl (31.0-36.0); Mean Corpuscular Hemoglobin 30.6 pg (27.0-33.0); Mean Corpuscular Volume 90.7 fL (80.0-98.0); Mean Platelet Volume 9.3 fL (9.4-12.4); Monocytes Absolute Auto 0.6 X10*3/uL (0.1-1.2); Neutrophils Absolute Auto 5.1 x10*3/uL (2.0-8.3); Neutrophils Percent Auto 62.9 % (45-73); Platelet Count 225 X10*3/uL (160-400); Red Blood Count 4.84 X10*6/uL (4.60-5.80); Red Cell Distribution Width 12.8 % (11.0-16.0); White Blood Count 8.1 X10*3/uL (4.8-10.8)
--- NOTE | 2021-09-30 21:10 | PC.NURSE ---
EKG OBTAINED, LABS DRAWN TO LAB. PT ALERT, RESPIRATIONS EASY, N/L. SKIN W/D. WILL CONTINUE TO MONITOR PT.
[2021-09-30 21:20] LABS: INTERNATIONAL NORM RATIO 2.2 (0.9-1.1); Prothrombin Time 25.5 SEC (9.9-13.0)
[2021-09-30 21:28] LABS: Anion Gap 13 (12-20); Blood Urea Nitrogen 13 mg/dL (9-16); Calcium 9.6 mg/dL (8.4-10.2); Carbon Dioxide 25 mmol/L (22-29); Chloride 103 mmol/L (96-108); Creatinine Clr Calc Pharmacy 144.1; Estimated Glomerular Filt Rate > 60; Glucose Random 94 mg/dL (60-115); Potassium 4.3 mmol/L (3.3-5.1); Sodium 137 mmol/L (135-145)
[2021-09-30 21:29] LABS: Troponin-I High Sensitivity 13.8 ng/L (<3.5-35.0)
[2021-09-30 21:39] LABS: Partial Thromboplastin Time 72.1 SEC (24.1-38.0)
--- NOTE | 2021-09-30 21:42 | PC.NURSE ---
pt awaiting for ct.
[2021-09-30] MEDS: iohexoL 350 MG/ML 100 ML INFUS..BTL IV (22:35)
--- NOTE | 2021-09-30 23:44 | PC.NURSE ---
pt up to restroom with steady even gait.
--- NOTE | 2021-10-01 00:13 | PC.NURSE ---
pt awaiting d/c instructions.
== END 2021-10-01 00:19 | disposition home or self-care (01) ==
PROVIDERS: Emergency Provider Internal Medicine; PCP Internal Medicine
DX: R55 Syncope and collapse (principal); R42 Dizziness and giddiness; Z86.718 Personal history of other venous thrombosis and embolism; Z79.01 Long term (current) use of anticoagulants; Z79.899 Other long term (current) drug therapy
CPT/HCPCS: 36415; 70496; 70498; 71045; 80048; 84484; 85025; 85610; 85730; 93005; 99283; 99284; Q9967

== ENCOUNTER 2021-10-03 07:30 | Day surgery (SDC) | payer MEDICARE, MEDICAID, SELFPAY ==
[2021-09-23 14:37] VITALS: BMI 43.7
--- NOTE | 2021-09-30 09:07 | P.CONAN_ITS ---
Documented by User: Jazzmine Amaya NP 09/30/21 09:08 HPI - Anesthesia Eval Consult details Narrative: 51yo M for Upper Endoscopy and Colonoscopy Warfarin for DVT/Factor 5 PMFSH Active Problems Active Problems: All Active Problems (Updated 09/23/21 @ 14:44 by Anum Mcnally RN) Varicose veins of right lower extremity with inflammation (Acute) Varicose veins of left lower extremity with inflammation (Acute) Colon cancer screening (Acute) Dysphagia, pharyngoesophageal phase (Acute) Factor 5 Leiden mutation, heterozygous (Acute) Annual physical exam (Acute) Skin abnormalities (Acute) STD (male) (Acute) Hypertension (Acute) Hyperlipidemia (Acute) DM type 2 (diabetes mellitus, type 2) (Acute) Past Medical History Medical History Annual physical exam DM type 2 (diabetes mellitus, type 2) DVT (deep venous thrombosis) Factor 5 Leiden mutation, heterozygous Hyperlipidemia Hypertension Obesity PVD (peripheral vascular disease) Skin abnormalities SOB (shortness of breath) STD (male) Venous (peripheral) insufficiency Family History Family History Father CVD (cardiovascular disease) Mother CVD (cardiovascular disease) Daughter No problems noted. Son No problems noted. Surgical History Surgical History H/O vascular surgery Social History Social History Housing: House Are you a primary reservoir caretaker to a significant other at home: No Do you presently have visiting nurse or other home services: No Unable to assess alcohol history related to: Unknown Patient Tobacco Use Status: Former Tobacco user Quit Date: 2010 Tobacco use type: Cigarette e-Cigarette/Vaping Use: Never Used Use of substances other than those prescribed or required for medical reasons: No Have you been hit, kicked, punched, or otherwise hurt by someone within the past year? If so, by whom?: No Are you DNR?: No Advance Directives: No Advance Directives Information Provided: Yes Advance Directives on File: No Recently lost weight without trying: No Current occupational status: employed Meds Allergies Allergy/AdvReac Type Severity Reaction Status Date / Time A & D Allergy Severe anaphylaxis Verified 09/29/21 11:26 bacitracin [BACITRACIN] Allergy Severe Verified 09/29/21 11:26 SEIZURE , anaphylaxis Sulfa (Sulfonamide Allergy Mild SWELLING Verified 09/29/21 11:26 Antibiotics) Home Medications Medication Instructions Recorded Confirmed Last Taken Type cholecalciferol (vitamin D3) 25 25 mcg PO DAILY 05/13/20 09/29/21 Unknown History mcg (1,000 unit) capsule metformin 750 mg tablet,extended 1,500 mg PO DAILY@1700 09/23/21 09/29/21 Unknown History release 24 hr simvastatin 40 mg tablet 40 mg PO BEDTIME 09/23/21 09/29/21 Unknown History Exam Exam Date and Time: September 30, 2021 09 Height,Weight and Vital Signs: Height 5 ft 9.5 in Weight 136.078 kg Pertinent Lab Results Pertinent Lab Results: Laboratory Tests 09/23/21 09/23/21 12:12 12:12 WBC 7.0 Hgb 14.6 Hct 44.4 Plt Count 238 Sodium 137 Potassium 4.4 Chloride 103 Carbon Dioxide 25 BUN 11 Creatinine 0.85 Assessment and Plan Assessment Anesthesia Assessment: Chart Reviewed Documented by User: Christina Ayoub MD 10/03/21 09:21 [facility] Past Medical History Medical History Annual physical exam DM type 2 (diabetes mellitus, type 2) DVT (deep venous thrombosis) Factor 5 Leiden mutation, heterozygous Hyperlipidemia Hypertension Obesity PVD (peripheral vascular disease) Skin abnormalities SOB (shortness of breath) STD (male) Venous (peripheral) insufficiency Family History Family History Father CVD (cardiovascular disease) Mother CVD (cardiovascular disease) Daughter No problems noted. Son No problems noted. Surgical History Surgical History H/O vascular surgery History of Problems with Anesthesia: No Social History Social History Housing: House Are you a primary reservoir caretaker to a significant other at home: No Do you presently have visiting nurse or other home services: No Unable to assess alcohol history related to: Unknown Patient Tobacco Use Status: Former Tobacco user Quit Date: 2010 Tobacco use type: Cigarette e-Cigarette/Vaping Use: Never Used Use of substances other than those prescribed or required for medical reasons: No Have you been hit, kicked, punched, or otherwise hurt by someone within the past year? If so, by whom?: No Are you DNR?: No Advance Directives: No Advance Directives Information Provided: Yes Advance Directives on File: No Recently lost weight without trying: No Current occupational status: employed Meds Allergies Allergy/AdvReac Type Severity Reaction Status Date / Time A & D Allergy Severe anaphylaxis Verified 09/29/21 11:26 bacitracin [BACITRACIN] Allergy Severe Verified 09/29/21 11:26 SEIZURE , anaphylaxis Sulfa (Sulfonamide Allergy Mild SWELLING Verified 09/29/21 11:26 Antibiotics) Home Medications Medication Instructions Recorded Confirmed Last Taken Type cholecalciferol (vitamin D3) 25 25 mcg PO DAILY 05/13/20 09/29/21 Unknown History mcg (1,000 unit) capsule metformin 750 mg tablet,extended 1,500 mg PO DAILY@1700 09/23/21 09/29/21 Unknown History release 24 hr simvastatin 40 mg tablet 40 mg PO BEDTIME 09/23/21 09/29/21 Unknown History Exam Airway Mallampati Class: II (Edentulous) Neck ROM: Full Loose/Missing/Broken Teeth: Yes, Upper and Lower Heart: RRR Lungs: CTA Assessment and Plan Assessment Anesthesia Assessment: Anesthesia Plan Discussed Final Anesthetic Review History of Problems with Anesthesia: No NPO: Yes ASA Class: III Final Preanesthetic Review: Meds/Allgs Chart Reviewed, Consent Obtained/Reviewed and Anes Risks/Benef Reviewed Patient Risk: Intermediate Procedure Risk: Intermediate Anesthetic Plan Anesthetic Plan: MAC: Disposition: Standard PACU
--- NOTE | 2021-10-03 07:59 | PC.NURSE ---
labs drawn. md todd and myself evaluated patient regarding his right swolen eye. bilateral lid swelling. states he was cleaning bathroom yesterday and may have had clorox bleach wipes on his hands and accidentally may have wiped his eye. no breathing issues.
[2021-10-03 08:07] VITALS: TEMP 36.6
[2021-10-03 08:09] LABS: INTERNATIONAL NORM RATIO 1.3 (0.9-1.1); Prothrombin Time 15.2 SEC (9.9-13.0)
--- NOTE | 2021-10-03 08:45 | MHC.SHP ---
Pre-Procedural Eval Section A Date of Service: 10/03/21 Section B Chief Complaint: Screening, Dysphagia Pharyngoesophageal Phase Details of Present Illness: Colon cancer screening, dysphagia Relevant Family History (Specify if Yes): No Relevant Social History: None Present Medications: see Short Stay Collaborative assessment Medical History: Significant History (DM type 2 (diabetes mellitus, type 2) DVT (deep venous thrombosis) Factor 5 Leiden mutation, heterozygous Hyperlipidemia Hypertension Obesity PVD (peripheral vascular disease) Skin abnormalities SOB (shortness of breath) STD (male) Venous (peripheral) insufficiency) History of Previous Operations: Relevant previous surgery/procedure and date(s) (hx of vascular surgery) Allergies: Allergies Allergy/AdvReac Type Severity Reaction Status Date / Time A & D Allergy Severe anaphylaxis Verified 09/29/21 11:26 bacitracin [BACITRACIN] Allergy Severe Verified 09/29/21 11:26 SEIZURE , anaphylaxis Sulfa (Sulfonamide Allergy Mild SWELLING Verified 09/29/21 11:26 Antibiotics) Review of Systems Sugical H&P ROS: Negative: Cardiovascular, Respiratory and Gastrointestinal and Yes, Specify: Constitution (morbidly obese) Exam Surgical H&P Exam: Normal: Heart, Normal: Lungs and Normal: Extremities Plan Diagnosis/Plan: Unchanged I have reviewed the history and physical and performed a pertinent physical examination on my patient. No changes have occurred unless specified.
--- NOTE | 2021-10-03 08:50 | P.BOP_ITS ---
Brief Operative Note Date of Service: 10/03/21 Pre-op diagnosis: Colon cancer screening, dysphagia Post-op diagnosis: other (Esophagitis, gastritis, duodenitis, colon polyps, diverticulosis, hemorrhoids) Procedure: FLEXIBLE TRANSORAL UPPER GASTROINTESTINAL ENDOSCOPY WITH BIOPSIES AND COLONOSCOPY TILL CECUM WITH SNARE POLYPECTOMY UPPER ENDOSCOPY Consent: Indications for the procedure and potential complications of bleeding, perforation, reaction to medications and missed diagnosis were discussed with the patient and informed consent was obtained. Instrument: Olympus GIF H 190 mid size upper endoscope Monitoring: Vital signs and clinical assessment, continuous EKG monitoring, Pulse oximetry, Carbon Dioxide monitoring and blood pressure monitoring were done throughout the procedure. Procedure: The patient was placed in the left lateral decubitis position and pre-procedure medications were administered and a bite block was placed. The endoscope was inserted into the mouth and advanced under direct vision to the third part of duodenum. A careful inspection was made as the upper endoscope was withdrawn including a retroflexed examination of the proximal stomach; Findings and interventions are described below. Findings: Larynx: Normal Esophagus: GE junction at 40 cms. Focal esophagitis at GEJ with a single 2 cms linear erosion. No stricture or Harvey's. Stomach: Mild gastric erythema. Biopsies were obtained. Grade 2 flap valve on retroflexed examination of the cardia. Duodenum: A few 4-5 mm chronic appearing erosions in the bulb. Normal descending duodenum Intervention: Biopsies as noted above COLONOSCOPY PROCEDURE NOTE Consent: Indications for the procedure and potential complications of bleeding, perforation, reaction to medications and missed diagnosis were discussed with the patient and informed consent was obtained. Instrument: Olympus PCF H 190 L variable stiffness pediatric colonoscope Monitoring: Vital signs and clinical assessment, intermittent blood pressure monitoring, continuous EKG monitoring, Pulse oximetry and Carbon Dioxide monitoring were done throughout the procedure. Colon withdrawl time was 18 minutes. Procedure: The patient was placed in the left lateral decubitis position and pre-procedure medications were administered. After a digital rectal examination of the ano-rectum, the video colonoscope was inserted into the rectum and advanced through the colon to the cecum. The colonoscope was slowly withdrawn in a retrograde panoramic fashion and the colon mucosa was carefully examined including a retroflexed view of the rectum. Findings and interventions are described below. Procedure Difficulty: : LLQ pressure applied to intubate the transverse colon/cecum Findings: Terminal Ileum: Not evaluated Cecum: Not evaluated Ascending Colon: Normal Transverse Colon: Normal Descending Colon: Normal Sigmoid Colon: Two 5-7 mm sessile polyps removed with the cold snare. Three 10-15 mm sessile polyps removed with a hot snare. Moderate diverticulosis Rectum: Normal Ano-rectum: Moderate internal hemorrhoids Colon preparation: Good after some irrigation Impression and Post Procedure Diagnosis: Endoscopy Findings: ESOPHAGUS: Focal esophagitis at GEJ with a single 2 cms linera erosion. No stricture or Harvey's. STOMACH: Gastritis DUODENUM: Few erosions in duodenal bulb Colonoscopy Findings: Five small to medium sized polyps removed Moderate diverticulosis seen in the sigmoid colon Moderate hemorrhoids on retroflexed exam. Plan: Await pathology results Start Omeprazole 20 mg daily for esophagitis. Patient has an appointment on 10/20/21 in the GI Clinic with Artur Francisco M.D.. Repeat Colonoscopy interval based on path results - in 1-2 years if polyps are adenomatous and 10 years if polyps are hyperplastic (needs adult colonoscope for future colonoscopies). Above findings were reviewed with the patient and GERD, colon polyps and diverticulosis handouts were given in the discharge area Surgeon: Artur Francisco MD Anesthesia: MAC (Dr Ayoub) Was an [employer] Worker used for this Procedure?: Yes [employer] Worker: Leslie Yoo Estimated blood loss (mL): 0 Pathology: other (A. gastric antrum bxs, R/O H. pylori B. sigmoid polyps (5)) Condition: stable Disposition: PACU
[2021-10-03] MEDS: Lactated Ringers 1,000 ML 100 ML IVCONT (08:55)
--- NOTE | 2021-10-03 08:59 | W.PM.OPN ---
Operative Note Operative Note Date of Service: 10/03/21 Narrative: Pre-op diagnosis: Colon cancer screening, dysphagia Post-op diagnosis:?other (Esophagitis, gastritis, duodenitis, colon polyps, diverticulosis, hemorrhoids) Procedure: FLEXIBLE TRANSORAL UPPER GASTROINTESTINAL ENDOSCOPY WITH BIOPSIES AND COLONOSCOPY TILL CECUM WITH SNARE POLYPECTOMY UPPER ENDOSCOPY Consent:?Indications for the procedure and potential complications of bleeding, perforation, reaction to medications and missed diagnosis were discussed with the patient and informed consent was obtained. Instrument:?Olympus GIF H 190 mid size upper endoscope Monitoring: Vital signs and clinical assessment, continuous EKG monitoring, Pulse oximetry, Carbon Dioxide monitoring and blood pressure monitoring were done throughout the procedure. Procedure:?The patient was placed in the left lateral decubitis position and pre-procedure medications were administered and a bite block was placed. The endoscope was inserted into the mouth and advanced under direct vision to the third part of duodenum. A careful inspection was made as the upper endoscope was withdrawn including a retroflexed examination of the proximal stomach; Findings and interventions are described below. Findings: Larynx:? Normal Esophagus:?GE junction at 40 cms.? Focal esophagitis at GEJ with a single 2 cms linear erosion. No stricture or Harvey's. Stomach:?Mild gastric erythema. Biopsies were obtained. Grade 2 flap valve on retroflexed examination of the cardia. Duodenum:?A few 4-5 mm chronic appearing erosions in the bulb. Normal descending duodenum Intervention:?Biopsies as noted above COLONOSCOPY PROCEDURE NOTE Consent:?Indications for the procedure and potential complications of bleeding, perforation, reaction to medications and missed diagnosis were discussed with the patient and informed consent was obtained. Instrument:?Olympus PCF H 190 L variable stiffness pediatric colonoscope Monitoring:?Vital signs and clinical assessment, intermittent blood pressure monitoring, continuous EKG monitoring, Pulse oximetry and Carbon Dioxide monitoring were done throughout the procedure. Colon withdrawl time was 18 minutes. Procedure:?The patient was placed in the left lateral decubitis position and pre-procedure medications were administered. After a digital rectal examination of the ano-rectum, the video colonoscope was inserted into the rectum and advanced through the colon to the cecum. The colonoscope was slowly withdrawn in a retrograde panoramic fashion and the colon mucosa was carefully examined including a retroflexed view of the rectum. Findings and interventions are described below. Procedure Difficulty:?:? LLQ pressure applied to intubate the transverse colon/cecum Findings: Terminal Ileum: Not evaluated Cecum:? Not evaluated Ascending Colon:??Normal Transverse Colon:??Normal Descending Colon:? Normal Sigmoid Colon:? Two 5-7 mm sessile polyps removed with the cold snare.? Three 10-15 mm sessile polyps removed with a hot snare.? Moderate diverticulosis Rectum:??Normal Ano-rectum:??Moderate internal hemorrhoids Colon preparation: Good after some irrigation Impression and Post Procedure Diagnosis: Endoscopy Findings: ESOPHAGUS:?Focal esophagitis at GEJ with a single 2 cms linera erosion. No stricture or Harvey's. STOMACH: Gastritis DUODENUM: Few erosions in duodenal bulb Colonoscopy Findings: Five small to medium sized polyps removed Moderate diverticulosis seen in the sigmoid colon Moderate hemorrhoids on retroflexed exam. Plan: Await pathology results Start Omeprazole 20 mg daily for esophagitis. Patient has an appointment on 10/20/21 in the GI Clinic with Artur Francisco M.D.. Repeat Colonoscopy interval based on path results - in 1-2 years if polyps are adenomatous and 10 years if polyps are hyperplastic (needs adult colonoscope for future colonoscopies). Above findings were reviewed with the patient and GERD, colon polyps and diverticulosis handouts were given in the discharge area Surgeon: Artur Francisco MD Anesthesia:?MAC (Dr Ayoub) Was an Appliance Service Representative used for this Procedure?:?Yes Appliance Service Representative:?Leslie Yoo Estimated blood loss (mL):?0 Pathology:?other (A. gastric antrum bxs, R/O H. pylori? B. sigmoid polyps (5)) Condition:?stable Disposition:?PACU
[2021-10-03 09:01] LABS: Glucose, Whole Blood 137 mg/dL (60-115)
[2021-10-03 10:00] VITALS: BP 111/63; PULSE 73; RESP 18; TEMP 36.2; O2SAT 97
[2021-10-03 10:15] VITALS: BP 94/51; PULSE 76; RESP 18; TEMP 36.1; O2SAT 96
== END 2021-10-03 10:50 | disposition home or self-care (01) ==
PROVIDERS: Nurse Practitioner; PCP Internal Medicine; Visit Provider Internal Medicine Gastroenterology
PROC: (CPT 45385; principal; 2021-10-03 09:10)
DX: Z12.11 Encounter for screening for malignant neoplasm of colon (principal); R13.14 Dysphagia, pharyngoesophageal phase; D12.5 Benign neoplasm of sigmoid colon; K57.30 Diverticulosis of large intestine without perforation or abscess without bleeding; K64.8 Other hemorrhoids; K29.70 Gastritis, unspecified, without bleeding; K20.90 Esophagitis, unspecified without bleeding; K29.80 Duodenitis without bleeding; I10 Essential (primary) hypertension; E78.5 Hyperlipidemia, unspecified; I73.9 Peripheral vascular disease, unspecified; I87.2 Venous insufficiency (chronic) (peripheral); D68.51 Activated protein C resistance; I82.409 Acute embolism and thrombosis of unspecified deep veins of unspecified lower extremity; E11.9 Type 2 diabetes mellitus without complications; Z79.84 Long term (current) use of oral hypoglycemic drugs; Z79.01 Long term (current) use of anticoagulants; Z79.899 Other long term (current) drug therapy; Z88.2 Allergy status to sulfonamides; Z87.891 Personal history of nicotine dependence
CPT/HCPCS: 45385; 43239; 36415; 82947; 85610; 88305; 88342; J2405; J2765

== ENCOUNTER 2021-10-04 14:56 | Emergency (ER) | payer MEDICARE, MEDICAID, SELFPAY ==
--- NOTE | ~2021-10-04 | CT_ITS ---
EXAMINATION: CT HEAD WITHOUT CONTRAST CLINICAL INFORMATION: Facial numbness. COMPARISON: CT head 02/25/2019 TECHNIQUE: Contiguous axial imaging was performed from the skull base to vertex without intravenous administration of contrast. Coronal and sagittal reformatted images are performed at CT scanner This CT examination was performed using dose optimization techniques as appropriate, variously including the following: *Automated exposure control *Adjustment of mA and/or kV according to patient size (this includes techniques or standardized protocols for targeted exams where dose is matched to indication/reason for exam; i.e. 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 There is no evidence of acute intracranial hemorrhage or acute territorial infarction. No abnormal mass effect or midline shift is seen. Vigil to white matter differentiation is well preserved. No extra-axial fluid collections are identified. There is generalized global volume loss. There is moderate prominence of the ventricles and the sulci . There are vascular calcifications of the internal carotid arteries bilaterally. The osseous structures and soft tissues are normal. The mastoid air cells and visualized portions of the paranasal sinuses are well aerated. CT/CT head/brain wo con IMPRESSION: No acute intracranial pathology.
[2021-10-04 15:16] VITALS: BP 143/92; PULSE 66; RESP 18; TEMP 36.6; O2SAT 99; BMI 44.3
--- NOTE | 2021-10-04 15:21 | ECG_ITS ---
Test Reason : hypertension Blood Pressure : / mmHG Vent. Rate : 070 BPM Atrial Rate : 070 BPM P-R Int : 252 ms QRS Dur : 072 ms QT Int : 380 ms P-R-T Axes : 054 -02 012 degrees QTc Int : 410 ms Sinus rhythm with 1st degree A-V block Otherwise normal ECG When compared with ECG of 30-SEP-2021 20:46, No significant change was found Referred By: Generic ED Physician Electronically Signed By:Fermin Rodriguez
[2021-10-04 15:31] LABS: MANUAL DIFF FLAG NO
[2021-10-04 15:37] LABS: Basophils Percent Auto 0.3 % (0-2); Eosinophils Absolute Auto 0.2 X10*3/uL (0.0-0.4); Eosinophils Percent Auto 2.3 % (0-4); Hematocrit 44.2 % (42.0-52.0); Hemoglobin 14.5 g/dl (14.0-18.0); Imm Gran Abs Auto 0.03 X10*3/uL (0.00-0.03); Imm Gran Pct Auto 0.4 % (0.0-0.4); Lymphocytes Absolute Auto 1.5 X10*3/uL (1.2-4.9); Lymphocytes Percent Auto 19.1 % (20-40); Mean Corpuscular HGB Conc 32.8 g/dl (31.0-36.0); Mean Corpuscular Hemoglobin 30.7 pg (27.0-33.0); Mean Corpuscular Volume 93.4 fL (80.0-98.0); Mean Platelet Volume 9.7 fL (9.4-12.4); Monocytes Absolute Auto 0.5 X10*3/uL (0.1-1.2); Monocytes Percent Auto 6.9 % (2-11); Neutrophils Absolute Auto 5.5 x10*3/uL (2.0-8.3); Platelet Count 205 X10*3/uL (160-400); Red Blood Count 4.73 X10*6/uL (4.60-5.80); Red Cell Distribution Width 12.5 % (11.0-16.0); White Blood Count 7.7 X10*3/uL (4.8-10.8)
[2021-10-04 15:38] LABS: INTERNATIONAL NORM RATIO 1.2 (0.9-1.1); Prothrombin Time 13.4 SEC (9.9-13.0)
[2021-10-04 15:48] LABS: Alanine Aminotransferase 33 U/L (0-40); Albumin Level 4.2 g/dL (3.5-5.0); Alkaline Phosphatase 52 U/L (39-117); Anion Gap 12 (12-20); Aspartate Amino Transferase 31 U/L (5-37); Bilirubin Total 0.8 mg/dL (0.0-1.0); Blood Urea Nitrogen 12 mg/dL (9-16); Calcium 9.6 mg/dL (8.4-10.2); Carbon Dioxide 27 mmol/L (22-29); Chloride 103 mmol/L (96-108); Creatinine Clr Calc Pharmacy 142.4; Estimated Glomerular Filt Rate > 60; Glucose Random 128 mg/dL (60-115); Potassium 4.7 mmol/L (3.3-5.1); Sodium 137 mmol/L (135-145); Total Protein 7.5 g/dL (6.5-8.0)
[2021-10-04 21:03] VITALS: BP 146/96; PULSE 76; RESP 20; O2SAT 99
--- NOTE | 2021-10-04 21:13 | ED_ITS ---
HPI - Neuro Symptoms/Deficit General Chief Complaint: Neuro Symptoms/Deficit Stated Complaint: right side of face numb/dizziness Time Seen by Provider: 10/04/21 21:13 Source: patient Mode of arrival: ambulatory Limitations: no limitations History of Present Illness HPI Narrative: Patient is 51 years old with history of borderline hypertension diabetes hyperlipidemia and factor 5 laden deficiency with history of DVTs on Coumadin was seen here on 09/30 for near-syncope episode workup was negative including CTA head and neck. Today he comes here because since 10:30 notice numbness on the right side of the face up to the angle of the mouth without any other focal deficit also patient noticed her blood pressure was elevated to 150s and 100 earlier he took extra dose of atenolol now total of 50 mg daily. Also patient noticed swelling of the right eyelid 3 days ago which got better after Benadryl now noticed swelling of the left eyelid no other rash Related Data Home Medications Medication Instructions Recorded Confirmed cholecalciferol (vitamin D3) 25 25 mcg PO DAILY 05/13/20 09/29/21 mcg (1,000 unit) capsule metformin 750 mg tablet,extended 1,500 mg PO DAILY@1700 09/23/21 09/29/21 release 24 hr simvastatin 40 mg tablet 40 mg PO BEDTIME 09/23/21 09/29/21 Previous Rx's Medication Instructions Recorded clobetasol 0.05 % topical cream 1 appl TOPICAL BID #45 g 07/06/20 atenolol 25 mg tablet 25 mg PO DAILY #90 tab 02/04/21 lancets (Digital EnvoyTouch UltraSoft #100 ea 02/04/21 Lancets) blood sugar diagnostic #100 ea 05/26/21 blood sugar diagnostic (OneTouch #100 ea 06/02/21 Ultra Test) blood-glucose meter (Digital EnvoyTouch #1 ea 06/02/21 Ultra2 Meter) warfarin 7.5 mg tablet 7.5 mg PO DAILY #90 tab 06/02/21 lancing device with lancets kit #1 ea 06/03/21 (Digital EnvoyTouch Delica Lanc Device) lancets 33 gauge (Digital EnvoyTouch Delica #100 ea 06/09/21 Lancets) diphenhydramine HCl 25 mg capsule 50 mg PO Q6H PRN #20 cap 10/04/21 (Benadryl) hydrochlorothiazide 25 mg tablet 25 mg PO QAM #30 tab 10/04/21 Allergies Allergy/AdvReac Type Severity Reaction Status Date / Time A & D Allergy Severe anaphylaxis Verified 10/04/21 15:14 bacitracin [BACITRACIN] Allergy Severe Verified 10/04/21 15:14 SEIZURE , anaphylaxis Sulfa (Sulfonamide Allergy Mild SWELLING Verified 10/04/21 15:14 Antibiotics) Review of Systems Review of Systems: Yes all other systems are reviewed and are negative [facility] Past Medical History Medical History Annual physical exam DM type 2 (diabetes mellitus, type 2) DVT (deep venous thrombosis) Factor 5 Leiden mutation, heterozygous Hyperlipidemia Hypertension Obesity PVD (peripheral vascular disease) Skin abnormalities SOB (shortness of breath) STD (male) Venous (peripheral) insufficiency Surgical History H/O vascular surgery Family History Family History Father CVD (cardiovascular disease) Mother CVD (cardiovascular disease) Daughter No problems noted. Son No problems noted. Social History Social History Housing: House Are you a primary special needs caregiver to a significant other at home: No Do you presently have visiting nurse or other home services: No Unable to assess alcohol history related to: Unknown Patient Tobacco Use Status: Former Tobacco user Quit Date: 2010 Tobacco use type: Cigarette e-Cigarette/Vaping Use: Never Used Advance Directives: No Advance Directives Information Provided: No Current occupational status: employed Physical Exam Vital Signs: Vital Signs: Last Vital Signs Temp 97.9 F 10/04/21 15:16 Pulse 76 10/04/21 21:03 Resp 20 10/04/21 21:03 BP 146/96 H 10/04/21 21:03 Pulse Ox 99 10/04/21 21:03 BMI result Body Mass Index 44.3 Appearance: Alert. Oriented X3. No acute distress. Eyes: Puffiness of left eye ENT: Pharynx normal. Oral Mucosa moist Neck: Normal inspection. Neck supple. CVS: Normal heart rate and rhythm. Pulses normal. Respiratory: No respiratory distress. Equal air entry bilateral, no wheezing/rales/rhonchi Abdomen: Soft and nontender. Bowel sounds are present, no mass palpable, no CVA tenderness Skin: Skin warm and dry. Normal skin color. Normal skin turgor. Extremities: No lower extremity edema. No calf tenderness Neuro: Oriented X 3. No motor deficit. Speech normal.No cerebellar signs , cranial nerves II-XII intact subjective decreased sensation to right side of the face MDM - Neuro Symptoms/Deficit Lab Data Attestation: I reviewed the patient's lab results. Result diagrams: 10/04/21 15:27 10/04/21 15:27 Labs: Lab Results 10/04/21 10/04/21 10/04/21 Range/Units 15:27 15:27 15:27 WBC 7.7 (4.8-10.8) X10*3/uL RBC 4.73 (4.60-5.80) X10*6/uL Hgb 14.5 (14.0-18.0) g/dl Hct 44.2 (42.0-52.0) % MCV 93.4 (80.0-98.0) fL MCH 30.7 (27.0-33.0) pg MCHC 32.8 (31.0-36.0) g/dl RDW 12.5 (11.0-16.0) % Plt Count 205 (160-400) X10*3/uL MPV 9.7 (9.4-12.4) fL Immature Gran % (Auto) 0.4 (0.0-0.4) % Neut % (Auto) 71.0 (45-73) % Lymph % (Auto) 19.1 L (20-40) % Park % (Auto) 6.9 (2-11) % Eos % (Auto) 2.3 (0-4) % Baso % (Auto) 0.3 (0-2) % Lymph # (Auto) 1.5 (1.2-4.9) X10*3/uL Park # (Auto) 0.5 (0.1-1.2) X10*3/uL Eos # (Auto) 0.2 (0.0-0.4) X10*3/uL Baso # (Auto) 0.0 (0.0-0.2) X10*3/uL Abs Immat Gran (auto) 0.03 (0.00-0.03) X10*3/uL Absolute Neuts (auto) 5.5 (2.0-8.3) x10*3/uL Absolute Nucleated RBC 0.000 (0.0-0.012) X10*3/uL Nucleated RBC % (auto) 0.0 (0.0-0.2) /100WBC PT 13.4 H (9.9-13.0) SEC INR 1.2 H (0.9-1.1) Sodium 137 (135-145) mmol/L Potassium 4.7 (3.3-5.1) mmol/L Chloride 103 (96-108) mmol/L Carbon Dioxide 27 (22-29) mmol/L Anion Gap 12 (12-20) BUN 12 (9-16) mg/dL Creatinine 0.85 (0.5-1.4) mg/dL Estim Creat Clear Calc 142.4 Estimated GFR > 60 Random Glucose 128 H D (60-115) mg/dL Calcium 9.6 (8.4-10.2) mg/dL Total Bilirubin 0.8 (0.0-1.0) mg/dL AST 31 (5-37) U/L ALT 33 (0-40) U/L Alkaline Phosphatase 52 (39-117) U/L Total Protein 7.5 (6.5-8.0) g/dL Albumin 4.2 (3.5-5.0) g/dL Discharge Plan Discharge Clinical Impression: Facial paresthesia, Allergic reaction Patient Disposition: Home, Self-Care Instructions: Paresthesia (ED), General Allergic Reaction (ED) Additional Instructions: Continue medications as prescribed Benadryl for allergic reaction to unknown agent Follow-up with PCP/vice president of manufacturing/neurologist Continue 50 mg of atenolol daily for blood pressure control and add hydrochlorothiazide 25 mg daily Prescriptions: New diphenhydramine HCl [Benadryl] 25 mg capsule 50 mg PO Q6H PRN (Reason: allergic reaction) Qty: 20 0RF hydrochlorothiazide 25 mg tablet 25 mg PO QAM Qty: 30 0RF No Action clobetasol 0.05 % cream 1 appl topical BID Qty: 45 3RF Rx Instructions: apply to the affected area twice a day for 10 days (DME) lancets [OneTouch UltraSoft Lancets] Misc See Rx Instructions .ROUTE .MEDSUPPLY Qty: 100 6RF Rx Instructions: TID atenolol 25 mg tablet 25 mg PO DAILY Qty: 90 3RF (DME) blood-glucose meter [OneTouch Ultra2 Meter] Kit See Rx Instructions .Route Qty: 1 0RF Rx Instructions: As directed (DME) OneTouch Ultra Test Strip See Rx Instructions .Route Qty: 100 3RF Rx Instructions: As directed warfarin 7.5 mg tablet 7.5 mg PO DAILY Qty: 90 3RF Hold Instructions: Resume on 10/07/21. resume warfarin on 10/07/21 (DME) lancing device with lancets [OneTouch Delica Lanc Device] Kit See Rx Instructions .Route Qty: 1 0RF Rx Instructions: testing blood sugar once daily (DME) lancets [OneTouch Delica Lancets] 33 gauge misc See Rx Instructions .Route Qty: 100 3RF Rx Instructions: test blood sugar daily metformin 750 mg tablet extended release 24 hr 1,500 mg PO DAILY@1700 0RF simvastatin 40 mg tablet 40 mg PO BEDTIME 0RF (DME) blood sugar diagnostic Strip See Rx Instructions .ROUTE .MEDSUPPLY Qty: 100 3RF Rx Instructions: test once a day cholecalciferol (vitamin D3) 25 mcg (1,000 unit) capsule 25 mcg PO DAILY 0RF Referrals: Kapil Cabello MD [Physician] - 10 days Interventions: ED Discharge Assessment Last Done: 10/04/21 22:28 Discharge Date/Time: 10/04/21 22:33
[2021-10-04] MEDS: diphenhydrAMINE HCL 25 MG TABLET 50 MG PO (22:27)
== END 2021-10-04 22:33 | disposition home or self-care (01) ==
PROVIDERS: Emergency Provider Internal Medicine; PCP Internal Medicine
DX: R20.2 Paresthesia of skin (principal); R42 Dizziness and giddiness; R51.9 Headache, unspecified; I10 Essential (primary) hypertension; E11.9 Type 2 diabetes mellitus without complications; Z86.718 Personal history of other venous thrombosis and embolism; Z79.01 Long term (current) use of anticoagulants; Z87.891 Personal history of nicotine dependence; Z79.899 Other long term (current) drug therapy
CPT/HCPCS: 36415; 70450; 80053; 85025; 85610; 93005; 99284; Q0163

== ENCOUNTER → 2021-10-20 12:51 | Outpatient (BNVA) | payer MEDICARE, MEDICAID, SELFPAY | PROVIDERS: PCP Internal Medicine; Referring Provider Internal Medicine; Visit Provider Internal Medicine Gastroenterology | DX: Z12.11 Encounter for screening for malignant neoplasm of colon (principal); K22.10 Ulcer of esophagus without bleeding; R13.14 Dysphagia, pharyngoesophageal phase | CPT/HCPCS: 99212 ==

== ENCOUNTER 2021-10-23 18:30 | Emergency (ER) | payer MEDICARE, MEDICAID, SELFPAY ==
[2021-10-23 18:41] VITALS: BP 168/84; PULSE 75; RESP 18; TEMP 36.1; O2SAT 96; BMI 44.5
--- NOTE | 2021-10-24 03:34 | ECG_ITS ---
Test Reason : CHEST PAIN Blood Pressure : / mmHG Vent. Rate : 064 BPM Atrial Rate : 064 BPM P-R Int : 266 ms QRS Dur : 080 ms QT Int : 400 ms P-R-T Axes : 043 003 009 degrees QTc Int : 412 ms Sinus rhythm with 1st degree A-V block Otherwise normal ECG When compared with ECG of 04-OCT-2021 15:35, No significant change was found Referred By: Christina Roman Electronically Signed By:Fermni Rodriguez
--- NOTE | 2021-10-24 03:54 | ED_ITS ---
HPI - General Adult General Chief complaint: General Medical Stated complaint: weakness Time Seen by Provider: 10/23/21 19:37 Source: patient Mode of arrival: ambulatory History of Present Illness HPI narrative: 51-year-old male with history of diabetes, factor 5 laden deficiency for which he is on Coumadin, and presents with feelings bilateral upper extremity weakness and tingling around his mouth without associated auditory/visual/speech changes and denies any unilateral extremity deficits such as numbness/tingling/weakness. Patient states that he underwent a colonoscopy this past Sunday and had polyps removed and has been eating, drinking, passing bowel movements without difficulty. Otherwise, he denies any shortness of breath, chest pain/palpitations. And states that his INR yesterday was noted to be 2.6. Patient states he has had these similar symptoms in the past but is ?concerned?. Related Data Home Medications Medication Instructions Recorded Confirmed cholecalciferol (vitamin D3) 25 25 mcg PO DAILY 05/13/20 10/20/21 mcg (1,000 unit) capsule metformin 750 mg tablet,extended 1,500 mg PO DAILY@1700 09/23/21 10/20/21 release 24 hr simvastatin 40 mg tablet 40 mg PO BEDTIME 09/23/21 10/20/21 Previous Rx's Medication Instructions Recorded clobetasol 0.05 % topical cream 1 appl TOPICAL BID #45 g 07/06/20 lancets ([employer] ConceptsTouch UltraSoft #100 ea 02/04/21 Lancets) blood sugar diagnostic #100 ea 05/26/21 blood sugar diagnostic (OneTouch #100 ea 06/02/21 Ultra Test) blood-glucose meter ([employer] ConceptsTouch #1 ea 06/02/21 Ultra2 Meter) warfarin 7.5 mg tablet 7.5 mg PO DAILY #90 tab 06/02/21 lancing device with lancets kit #1 ea 06/03/21 ([employer]sTouch Delica Lanc Device) lancets 33 gauge (OneTouch Delica #100 ea 06/09/21 Lancets) diphenhydramine HCl 25 mg capsule 50 mg PO Q6H PRN #20 cap 10/04/21 (Benadryl) atenolol 25 mg tablet 50 mg PO DAILY #90 tab 10/07/21 famotidine 20 mg tablet 20 mg PO BEDTIME 90 Days #90 tab 10/20/21 Allergies Allergy/AdvReac Type Severity Reaction Status Date / Time A & D Allergy Severe anaphylaxis Verified 10/23/21 18:41 bacitracin [BACITRACIN] Allergy Severe Verified 10/23/21 18:41 SEIZURE , anaphylaxis Sulfa (Sulfonamide Allergy Mild SWELLING Verified 10/23/21 18:41 Antibiotics) Review of Systems Review of Systems: Pertinent positives and negatives as stated in HPI 10 point review of systems is otherwise negative. PMFSH Past Medical History Source: nursing notes reviewed Medical History Annual physical exam Dizziness DM type 2 (diabetes mellitus, type 2) DVT (deep venous thrombosis) Factor 5 Leiden mutation, heterozygous Hyperlipidemia Hypertension Obesity PVD (peripheral vascular disease) Skin abnormalities SOB (shortness of breath) STD (male) Venous (peripheral) insufficiency Surgical History H/O vascular surgery Hx of colonoscopy Hx of esophagogastroduodenoscopy Family History Family History Father CVD (cardiovascular disease) Mother CVD (cardiovascular disease) Daughter No problems noted. Son No problems noted. Social History Social History Housing: House Are you a primary plant care worker to a significant other at home: No Do you presently have visiting nurse or other home services: No Unable to assess alcohol history related to: Unknown Patient Tobacco Use Status: Former Tobacco user Quit Date: 2010 Tobacco use type: Cigarette e-Cigarette/Vaping Use: Never Used Advance Directives: No Advance Directives Information Provided: No Current occupational status: employed Physical Exam ED Vital Signs: Vital Signs - 24 hr 10/23/21 18:41 10/24/21 04:52 Temperature 96.9 F 98.5 F Pulse Rate 75 71 Respiratory Rate 18 16 Blood Pressure 168/84 H 127/84 Pulse Oximetry 96 97 BMI result Body Mass Index 44.5 VITAL SIGNS: Reviewed. GENERAL: Elevated BMI, well nourished, in no acute distress. HEAD: Normocephalic/atraumatic EYES: PERRLA, EOMI EARS: Ext canals without abnormality, TMs non-bulging and non-erythematous NOSE: Nares patent bilateral OROPHARYNX: no oral lesions noted, posterior pharynx clear LUNGS: Normal breath sounds. No adventitious sounds or accessory muscle use. SpO2<96> CARDIOVASCULAR: Regular rate and rhythm without noted murmurs, no JVD or lower extremity edema. ABDOMEN: Soft, non-tender, non-distended with bowel sounds. MUSCULOSKELETAL: No tenderness, deformities, or effusions noted on gross inspection. EXTREMITIES: No cyanosis, clubbing or edema. SKIN: Inspection of the skin reveals no rashes NEUROLOGIC: Alert and oriented x 4. Strength and sensation to light touch were grossly intact x 4, no facial asymmetry, no pronator drift, cranial nerves 2-12 are grossly intact, cerebellar testing is without deficit. Course Course Course Narrative: 51-year-old male with history and clinical presentation most suggestive of possible anxiety, but will rule out metabolic/infectious etiologies and given a therapeutic INR levels yesterday I do not suspect any Coumadin related issues. Patient's symptoms are not consistent with neurologic etiology and he was reassured. Review of all investigations negative for evidence to suggest infection, anemia, electrolyte abnormalities and INR is noted to be therapeutic there are no clinical concerns for bleeding. Patient informed of all results. Patient was reassured and informed that he can be further evaluated as an outpatient by his primary care provider. Medical Decision Making Lab Data Result diagrams: 10/24/21 04:25 10/24/21 04:25 Labs: Lab Results 10/24/21 10/24/21 10/24/21 Range/Units 04:25 04:25 04:25 WBC 8.4 (4.8-10.8) X10*3/uL RBC 4.66 (4.60-5.80) X10*6/uL Hgb 14.2 (14.0-18.0) g/dl Hct 42.9 (42.0-52.0) % MCV 92.1 (80.0-98.0) fL MCH 30.5 (27.0-33.0) pg MCHC 33.1 (31.0-36.0) g/dl RDW 12.9 (11.0-16.0) % Plt Count 221 (160-400) X10*3/uL MPV 9.7 (9.4-12.4) fL Immature Gran % (Auto) 0.4 (0.0-0.4) % Neut % (Auto) 67.0 (45-73) % Lymph % (Auto) 24.2 (20-40) % [place] % (Auto) 6.5 (2-11) % Eos % (Auto) 1.4 (0-4) % Baso % (Auto) 0.5 (0-2) % Lymph # (Auto) 2.0 (1.2-4.9) X10*3/uL [place] # (Auto) 0.6 (0.1-1.2) X10*3/uL Eos # (Auto) 0.1 (0.0-0.4) X10*3/uL Baso # (Auto) 0.0 (0.0-0.2) X10*3/uL Abs Immat Gran (auto) 0.03 (0.00-0.03) X10*3/uL Absolute Neuts (auto) 5.7 (2.0-8.3) x10*3/uL Absolute Nucleated RBC 0.000 (0.0-0.012) X10*3/uL Nucleated RBC % (auto) 0.0 (0.0-0.2) /100WBC PT 27.4 H (9.9-13.0) SEC INR 2.4 H (0.9-1.1) Sodium 136 (135-145) mmol/L Potassium 4.0 (3.3-5.1) mmol/L Chloride 102 (96-108) mmol/L Carbon Dioxide 23 (22-29) mmol/L Anion Gap 15 (12-20) BUN 12 (9-16) mg/dL Creatinine 0.87 (0.5-1.4) mg/dL Estim Creat Clear Calc 139.6 Estimated GFR > 60 Random Glucose 155 H (60-115) mg/dL Calcium 9.1 (8.4-10.2) mg/dL Total Bilirubin 0.7 (0.0-1.0) mg/dL AST 20 (5-37) U/L ALT 21 (0-40) U/L Alkaline Phosphatase 47 (39-117) U/L Troponin I High Sens (<3.5-35.0) ng/L Total Protein 7.1 (6.5-8.0) g/dL Albumin 3.9 (3.5-5.0) g/dL 03/21/22 Range/Units 04:25 WBC (4.8-10.8) X10*3/uL RBC (4.60-5.80) X10*6/uL Hgb (14.0-18.0) g/dl Hct (42.0-52.0) % MCV (80.0-98.0) fL MCH (27.0-33.0) pg MCHC (31.0-36.0) g/dl RDW (11.0-16.0) % Plt Count (160-400) X10*3/uL MPV (9.4-12.4) fL Immature Gran % (Auto) (0.0-0.4) % Neut % (Auto) (45-73) % Lymph % (Auto) (20-40) % [place] % (Auto) (2-11) % Eos % (Auto) (0-4) % Baso % (Auto) (0-2) % Lymph # (Auto) (1.2-4.9) X10*3/uL [place] # (Auto) (0.1-1.2) X10*3/uL Eos # (Auto) (0.0-0.4) X10*3/uL Baso # (Auto) (0.0-0.2) X10*3/uL Abs Immat Gran (auto) (0.00-0.03) X10*3/uL Absolute Neuts (auto) (2.0-8.3) x10*3/uL Absolute Nucleated RBC (0.0-0.012) X10*3/uL Nucleated RBC % (auto) (0.0-0.2) /100WBC PT (9.9-13.0) SEC INR (0.9-1.1) Sodium (135-145) mmol/L Potassium (3.3-5.1) mmol/L Chloride (96-108) mmol/L Carbon Dioxide (22-29) mmol/L Anion Gap (12-20) BUN (9-16) mg/dL Creatinine (0.5-1.4) mg/dL Estim Creat Clear Calc Estimated GFR Random Glucose (60-115) mg/dL Calcium (8.4-10.2) mg/dL Total Bilirubin (0.0-1.0) mg/dL AST (5-37) U/L ALT (0-40) U/L Alkaline Phosphatase (39-117) U/L Troponin I High Sens < 3.5 D (<3.5-35.0) ng/L Total Protein (6.5-8.0) g/dL Albumin (3.5-5.0) g/dL ECG Data Attestation: I personally reviewed and interpreted this ECG as follows: Prior ECG tracings: available for review (No acute changes on comparison) Interpretation: Sinus rhythm with first-degree AV block, HR -64, no STEMI, QRS/QTC are within normal limits. Discharge Plan Discharge Clinical Impression: Weakness, Factor 5 Leiden mutation, heterozygous, Anxiety, Diabetes Patient Disposition: Home, Self-Care Instructions: Anxiety (ED), Weakness (ED), Diabetes and Nutrition (ED), Diabetes and Exercise (ED) Additional Instructions: 1. Resume all home medications as prescribed. 2. You may be suffering some mild healthcare anxiety with some of the recent decisions made regarding your medications and I highly recommend to discuss this further with your primary care provider. 3. Recommend you follow-up with your primary care provider for further evaluation of your weakness symptoms. Return to the ER for worsening symptoms. Prescriptions: No Action clobetasol 0.05 % cream 1 appl topical BID Qty: 45 3RF Rx Instructions: apply to the affected area twice a day for 10 days (DME) lancets [OneTouch UltraSoft Lancets] Misc See Rx Instructions .ROUTE .MEDSUPPLY Qty: 100 6RF Rx Instructions: TID (DME) blood-glucose meter [OneTouch Ultra2 Meter] Kit See Rx Instructions .Route Qty: 1 0RF Rx Instructions: As directed (DME) OneTouch Ultra Test Strip See Rx Instructions .Route Qty: 100 3RF Rx Instructions: As directed warfarin 7.5 mg tablet 7.5 mg PO DAILY Qty: 90 3RF Hold Instructions: Resume on 10/07/21. resume warfarin on 10/07/21 (DME) lancing device with lancets [OneTouch Delica Lanc Device] Kit See Rx Instructions .Route Qty: 1 0RF Rx Instructions: testing blood sugar once daily (DME) lancets [OneTouch Delica Lancets] 33 gauge misc See Rx Instructions .Route Qty: 100 3RF Rx Instructions: test blood sugar daily metformin 750 mg tablet extended release 24 hr 1,500 mg PO DAILY@1700 0RF simvastatin 40 mg tablet 40 mg PO BEDTIME 0RF diphenhydramine HCl [Benadryl] 25 mg capsule 50 mg PO Q6H PRN (Reason: allergic reaction) Qty: 20 0RF (DME) blood sugar diagnostic Strip See Rx Instructions .ROUTE .MEDSUPPLY Qty: 100 3RF Rx Instructions: test once a day atenolol 25 mg tablet 50 mg PO DAILY Qty: 90 3RF cholecalciferol (vitamin D3) 25 mcg (1,000 unit) capsule 25 mcg PO DAILY 0RF famotidine 20 mg tablet 20 mg PO BEDTIME 90 Days Qty: 90 1RF Referrals: Esha Corbin MD [Primary Care Provider] - 2 days
[2021-10-24 04:32] LABS: MANUAL DIFF FLAG NO
[2021-10-24 04:34] LABS: Basophils Percent Auto 0.5 % (0-2); Eosinophils Absolute Auto 0.1 X10*3/uL (0.0-0.4); Eosinophils Percent Auto 1.4 % (0-4); Hematocrit 42.9 % (42.0-52.0); Hemoglobin 14.2 g/dl (14.0-18.0); Imm Gran Abs Auto 0.03 X10*3/uL (0.00-0.03); Imm Gran Pct Auto 0.4 % (0.0-0.4); Lymphocytes Percent Auto 24.2 % (20-40); Mean Corpuscular HGB Conc 33.1 g/dl (31.0-36.0); Mean Corpuscular Hemoglobin 30.5 pg (27.0-33.0); Mean Corpuscular Volume 92.1 fL (80.0-98.0); Mean Platelet Volume 9.7 fL (9.4-12.4); Monocytes Absolute Auto 0.6 X10*3/uL (0.1-1.2); Monocytes Percent Auto 6.5 % (2-11); Neutrophils Absolute Auto 5.7 x10*3/uL (2.0-8.3); Platelet Count 221 X10*3/uL (160-400); Red Blood Count 4.66 X10*6/uL (4.60-5.80); Red Cell Distribution Width 12.9 % (11.0-16.0); White Blood Count 8.4 X10*3/uL (4.8-10.8)
[2021-10-24 04:41] LABS: INTERNATIONAL NORM RATIO 2.4 (0.9-1.1); Prothrombin Time 27.4 SEC (9.9-13.0)
[2021-10-24 04:52] VITALS: BP 127/84; PULSE 71; RESP 16; TEMP 36.9; O2SAT 97
[2021-10-24 04:54] LABS: Troponin-I High Sensitivity < 3.5 ng/L (<3.5-35.0)
[2021-10-24 04:55] VITALS: BP 127/76; PULSE 82; RESP 15; O2SAT 97
[2021-10-24 04:56] LABS: Alanine Aminotransferase 21 U/L (0-40); Albumin Level 3.9 g/dL (3.5-5.0); Alkaline Phosphatase 47 U/L (39-117); Anion Gap 15 (12-20); Aspartate Amino Transferase 20 U/L (5-37); Bilirubin Total 0.7 mg/dL (0.0-1.0); Blood Urea Nitrogen 12 mg/dL (9-16); Calcium 9.1 mg/dL (8.4-10.2); Carbon Dioxide 23 mmol/L (22-29); Chloride 102 mmol/L (96-108); Creatinine Clr Calc Pharmacy 139.6; Estimated Glomerular Filt Rate > 60; Glucose Random 155 mg/dL (60-115); Sodium 136 mmol/L (135-145); Total Protein 7.1 g/dL (6.5-8.0)
== END 2021-10-24 05:17 | disposition home or self-care (01) ==
PROVIDERS: Emergency Provider Student in an Organized Health Care Education/Training Program; PCP Internal Medicine
DX: R53.1 Weakness (principal); F41.1 Generalized anxiety disorder; D68.51 Activated protein C resistance; F43.0 Acute stress reaction; E11.9 Type 2 diabetes mellitus without complications; Z79.01 Long term (current) use of anticoagulants; Z79.899 Other long term (current) drug therapy
CPT/HCPCS: 36415; 80053; 84484; 85025; 85610; 93005; 99283

== ENCOUNTER 2021-10-29 13:04 | Outpatient (REF) | payer MEDICARE, MEDICAID, SELFPAY ==
[2021-10-31 04:26] LABS: Folate 6.7 ng/mL (> or = 4.0); Vitamin B12 199 pg/mL (200-900)
== END 2021-10-29 13:05 | disposition home or self-care (01) ==
LOC: HO.HMGCLDS 13:04
PROVIDERS: PCP Internal Medicine; Visit Provider Internal Medicine
DX: E53.8 Deficiency of other specified B group vitamins (principal)
CPT/HCPCS: 36415; 82607; 82746

== ENCOUNTER → 2021-12-06 10:54 | Outpatient (REF) | payer MEDICARE, MEDICAID, SELFPAY ==
--- NOTE | 2021-12-06 10:56 | CA_ITS ---
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 The calculated ejection fraction is 61% by biplane method. - There is mild calcification of the aortic valve. - There is mild mitral annular calcification. - There is mild dilatation of the sinuses of Valsalva measuring 4.66 cm and no dilatation of the ascending aorta measuring 3.70 cm. Findings Procedure Information Contrast agent, definity, is being given per protocol without apparent complications. Left Ventricle Normal left ventricular cavity size. The left ventricular systolic function is normal. The calculated ejection fraction is 61% by biplane method. Diastolic function is normal for age. Wall thickness difficult to assess but there seems to be focal basal septal hypertrophy. Right Ventricle Normal right ventricular cavity size and systolic function. Atria Both atria are normal in size. Aortic Valve The aortic valve structure and function is likely normal. There is mild calcification of the aortic valve. There is no aortic valve stenosis. There is no aortic valve regurgitation. Mitral Valve There is mild mitral annular calcification. There is no mitral valve regurgitation. There is no mitral valve stenosis. Pulmonic Valve The pulmonic valve is likely normal. Tricuspid Valve There is no tricuspid valve regurgitation. The pulmonary artery systolic pressure is normal. Great Vessels There is mild dilatation of the sinuses of Valsalva measuring 4.66 cm and no dilatation of the ascending aorta measuring 3.70 cm. Venous The inferior vena cava is normal in size and collapses greater than 50% with inspiration. Pericardium/Pleural There is no evidence of pericardial effusion. Prior Study Comparison Changes noted compared to prior study dated: 07/15/2018. See comments on aorta. Measurements 2D Linear Measurements IVSd: 1.09 0.6-0.9/0.6-1.0 cm LVIDd: 5.67 3.9-5.3/4.2-5.9 cm LVIDd Index: 2.32 2.4-3.2/2.2-3.1 cm/m2 LVIDs: 3.78 2.0-3.6 cm LVPWd: 1.08 0.7-1.1 cm LA Diam: 3.20 2.7-3.8/3.0-4.0 cm LAIDs Index: 1.31 1.5-2.3 cm/m2 LV Mass: 311.59 67-162/88-224 g LV Mass Index: 127.70 43-95/49-115 g/m2 LVOT Diam: 2.40 3.0+(-)1.3 cm 2D Systolic Function EF 4C: 50.50 >55% EF 2C: 68.10 >55% EF BiP: 60.90 >55% Mitral Valve MV Pk E: 0.77 MV PK A: 1.00 MV Decel Time: 231.00 E/A: 0.80 E'Lateral: 6.96 E'Medial: 5.55 E/E' Med: 13.80 E/E' Lat: 11.00 PHT: 68.00 MVA PHT: 3.24 Decel Pitkin: 3.32 Aortic Valve AoV Pk Oskar: 1.59 AoV Mn Oskar: 1.22 AoV VTI: 0.37 AoV Pk Grad: 10.00 Aov Mn Grad: 6.00 JUANJO Cont.VTI: 2.79 LVOT LVOT Pk Oskar: 1.03 LVOT Mn Oskar: 0.75 LVOT VTI: 0.23 LVOT Pk Grad: 4.00 LVOT Mn Grad: 3.00 LVOT Diam: 2.40 LVOT Area: 4.52 Diastolic Function MV Pk E: 0.77 MV Pk A: 1.00 E/A: 0.80 E'Medial: 5.55 E/E' Med: 13.80 E' Laterial: 6.96 E/E' Lat: 11.00 Right Ventricle TAPSE (mm): 23.30 TVS' Oskar: 12.20 Tricuspid Valve TR Pk Oskar: 2.05 TR Pk Grad: 17.00 RA Press: 3.00 RVSP: 20.00 Great Vessels Aorta Sinus of Valsalva: 4.66 2.0-3.5 cm Ao Asc: 3.70 2.1-3.4 cm Updated in Other Vendor System with Status of Final Evin Nix MD electronically signed on 12/06/2021 3:50:54 PM with status of Final
--- NOTE | 2021-12-06 10:56 | HM_ITS ---
Conclusion: 1. Patient was monitored for total period of 3 days and 18 hours 2. Baseline was normal sinus rhythm with average heart rate of 77 beats per minute 3. Total of 2066 PVCs accounting for 0.65% of total beats, consistent with occasional PVCs 4. No significant pauses or bradycardia 5. Patient reported symptom correlated with isolated PVC MTDD
== END ==
LOC: HO.CARD 10:54
PROVIDERS: PCP Internal Medicine; Visit Provider Internal Medicine
DX: R42 Dizziness and giddiness (principal)
CPT/HCPCS: 93242; 93306; Q9957

== ENCOUNTER → 2021-12-08 08:17 | Outpatient (BNVA) | payer MEDICARE, MEDICAID, SELFPAY | PROVIDERS: PCP Internal Medicine; Visit Provider Internal Medicine Gastroenterology | DX: Z12.11 Encounter for screening for malignant neoplasm of colon (principal); K22.10 Ulcer of esophagus without bleeding; E53.8 Deficiency of other specified B group vitamins; R13.14 Dysphagia, pharyngoesophageal phase | CPT/HCPCS: 99212 ==

== ENCOUNTER 2021-12-28 12:02 | Outpatient (REF) | payer MEDICARE, MEDICAID, SELFPAY ==
[2021-12-28 13:50] LABS: Hematocrit 46.9 % (42.0-52.0); Hemoglobin 15.6 g/dl (14.0-18.0); Mean Corpuscular HGB Conc 33.3 g/dl (31.0-36.0); Mean Corpuscular Hemoglobin 30.7 pg (27.0-33.0); Mean Corpuscular Volume 92.3 fL (80.0-98.0); Mean Platelet Volume 10.1 fL (9.4-12.4); Platelet Count 243 X10*3/uL (160-400); Red Blood Count 5.08 X10*6/uL (4.60-5.80); Red Cell Distribution Width 13.2 % (11.0-16.0); White Blood Count 7.3 X10*3/uL (4.8-10.8)
[2021-12-28 14:02] LABS: Alanine Aminotransferase 31 U/L (0-40); Albumin Level 4.4 g/dL (3.5-5.0); Alkaline Phosphatase 49 U/L (39-117); Anion Gap 10 (12-20); Aspartate Amino Transferase 26 U/L (5-37); Bilirubin Total 0.9 mg/dL (0.0-1.0); Blood Urea Nitrogen 15 mg/dL (9-16); Calcium 9.5 mg/dL (8.4-10.2); Carbon Dioxide 27 mmol/L (22-29); Chloride 103 mmol/L (96-108); Cholesterol 147 mg/dL; Estimated Average Glucose 143 mg/dL; Estimated Glomerular Filt Rate > 60; Glucose Fasting 125 mg/dL (60-99); HDL Cholesterol 41 mg/dL; Hemoglobin A1c % 6.6 %; LDL Cholesterol Calculated 79 mg/dl; Potassium 4.4 mmol/L (3.3-5.1); Sodium 136 mmol/L (135-145); Total Protein 7.9 g/dL (6.5-8.0); Triglycerides 136 mg/dL
[2021-12-28 14:22] LABS: Syphilis Screen Nonreactive (Nonreactive)
[2021-12-28 18:22] LABS: CT PCR NOT DETECTED (Not Detect.); NG PCR NOT DETECTED (Not Detect.)
[2021-12-29 06:23] LABS: HBc Num1 0.08 S/CO (0.00-0.79); HIV AB/AG Nonreactive (Nonreactive); Hepatitis B Core Antibody Nonreactive (Nonreactive)
== END 2021-12-28 12:03 | disposition home or self-care (01) ==
LOC: HO.HMGCLDS 12:02
PROVIDERS: PCP Internal Medicine; Visit Provider Internal Medicine
DX: Z11.4 Encounter for screening for human immunodeficiency virus [HIV] (principal); Z11.3 Encounter for screening for infections with a predominantly sexual mode of transmission; E11.9 Type 2 diabetes mellitus without complications; E78.5 Hyperlipidemia, unspecified; I10 Essential (primary) hypertension; A64 Unspecified sexually transmitted disease
CPT/HCPCS: 80053; 80061; 83036; 85027; 86704; 86780; 87389; 87491; 87591

== ENCOUNTER 2022-01-04 10:54 | Outpatient (REF) | payer MEDICARE, MEDICAID, SELFPAY ==
[2022-01-07 01:52] LABS: TS Negative Control Passed; TS Panel A 1; TS Panel B 0; TS Positive Control Passed; TSpotTB Negative (Negative)
== END 2022-01-04 10:55 | disposition home or self-care (01) ==
LOC: HO.HMGCLDS 10:54
PROVIDERS: Internal Medicine; Visit Provider Internal Medicine
DX: Z11.1 Encounter for screening for respiratory tuberculosis (principal)
CPT/HCPCS: 36415; 86481

== ENCOUNTER 2022-04-03 08:52 | Outpatient (REF) | payer MEDICARE, MEDICAID, SELFPAY ==
[2022-04-03 11:24] LABS: MANUAL DIFF FLAG NO
[2022-04-03 11:40] LABS: Basophils Absolute Auto 0.1 X10*3/uL (0.0-0.2); Basophils Percent Auto 0.7 % (0-2); Eosinophils Absolute Auto 0.1 X10*3/uL (0.0-0.4); Eosinophils Percent Auto 1.4 % (0-4); Hematocrit 44.9 % (42.0-52.0); Hemoglobin 14.9 g/dl (14.0-18.0); Imm Gran Abs Auto 0.05 X10*3/uL (0.00-0.03); Imm Gran Pct Auto 0.7 % (0.0-0.4); Lymphocytes Absolute Auto 1.5 X10*3/uL (1.2-4.9); Lymphocytes Percent Auto 21.8 % (20-40); Mean Corpuscular HGB Conc 33.2 g/dl (31.0-36.0); Mean Corpuscular Hemoglobin 30.5 pg (27.0-33.0); Mean Platelet Volume 9.8 fL (9.4-12.4); Monocytes Absolute Auto 0.5 X10*3/uL (0.1-1.2); Monocytes Percent Auto 7.1 % (2-11); Neutrophils Absolute Auto 4.8 x10*3/uL (2.0-8.3); Neutrophils Percent Auto 68.3 % (45-73); Platelet Count 225 X10*3/uL (160-400); Red Blood Count 4.88 X10*6/uL (4.60-5.80); Red Cell Distribution Width 13.1 % (11.0-16.0); White Blood Count 7.1 X10*3/uL (4.8-10.8)
[2022-04-03 11:54] LABS: Alanine Aminotransferase 26 U/L (0-40); Albumin Level 4.1 g/dL (3.5-5.0); Alkaline Phosphatase 47 U/L (39-117); Anion Gap 15 (12-20); Aspartate Amino Transferase 22 U/L (5-37); Bilirubin Total 0.6 mg/dL (0.0-1.0); Blood Urea Nitrogen 12 mg/dL (9-16); Calcium 8.9 mg/dL (8.4-10.2); Carbon Dioxide 26 mmol/L (22-29); Chloride 102 mmol/L (96-108); Cholesterol 161 mg/dL; Estimated Glomerular Filt Rate > 60; Glucose Fasting 151 mg/dL (60-99); HDL Cholesterol 50 mg/dL; LDL Cholesterol Calculated 81 mg/dl; Potassium 4.5 mmol/L (3.3-5.1); Sodium 138 mmol/L (135-145); Total Protein 7.6 g/dL (6.5-8.0); Triglycerides 153 mg/dL
[2022-04-03 12:09] LABS: Creatinine Urine 144.46 mg/dL; Microalbum/Creatinine Ratio Ur 7.6 ug/mg cr
[2022-04-03 12:17] LABS: Estimated Average Glucose 146 mg/dL; Hemoglobin A1c % 6.7 %
== END 2022-04-03 08:53 | disposition home or self-care (01) ==
LOC: HO.HMGCLDS 08:52
PROVIDERS: PCP Internal Medicine; Visit Provider Internal Medicine
DX: E78.5 Hyperlipidemia, unspecified (principal); I11.0 Hypertensive heart disease with heart failure; I50.9 Heart failure, unspecified; E11.9 Type 2 diabetes mellitus without complications
CPT/HCPCS: 36415; 80053; 80061; 82043; 83036; 85025

== ENCOUNTER → 2022-05-31 09:10 | Outpatient (REF) | payer MEDICARE, MEDICAID, SELFPAY | LOC: HO.SL 09:10 | PROVIDERS: PCP Internal Medicine; Visit Provider Internal Medicine | DX: G47.33 Obstructive sleep apnea (adult) (pediatric) (principal) | CPT/HCPCS: 95806 ==

== ENCOUNTER 2022-07-17 09:05 | Outpatient (REF) | payer MEDICARE, MEDICAID, SELFPAY ==
[2022-07-17 11:35] LABS: Estimated Average Glucose 154 mg/dL
[2022-07-17 11:41] LABS: Cholesterol 142 mg/dL; HDL Cholesterol 44 mg/dL; LDL Cholesterol Calculated 71 mg/dl; Triglycerides 135 mg/dL
[2022-07-17 11:55] LABS: Creatinine Urine 187.54 mg/dL; Microalbum/Creatinine Ratio Ur 25.5 ug/mg cr
[2022-07-17 12:43] LABS: Folate 6.8 ng/mL (> or = 4.0); Vitamin B12 292 pg/mL (200-900)
== END 2022-07-17 09:06 | disposition home or self-care (01) ==
LOC: HO.HMGCLDS 09:05
PROVIDERS: PCP Internal Medicine; Visit Provider Internal Medicine
DX: E53.8 Deficiency of other specified B group vitamins (principal); E78.5 Hyperlipidemia, unspecified; I10 Essential (primary) hypertension; E11.9 Type 2 diabetes mellitus without complications
CPT/HCPCS: 36415; 80061; 82043; 82607; 82746; 83036

== ENCOUNTER → 2022-10-19 12:54 | Outpatient (BNVA) | payer MEDICARE, MEDICAID, SELFPAY | PROVIDERS: PCP Internal Medicine; Visit Provider Internal Medicine Gastroenterology | DX: R13.14 Dysphagia, pharyngoesophageal phase (principal); K22.10 Ulcer of esophagus without bleeding; E53.8 Deficiency of other specified B group vitamins; Z86.010 Personal history of colon polyps | CPT/HCPCS: 99212 ==

== ENCOUNTER 2022-10-31 09:15 | Outpatient (REF) | payer MEDICARE, MEDICAID, SELFPAY ==
[2022-10-31 12:16] LABS: Estimated Average Glucose 154 mg/dL
[2022-10-31 12:35] LABS: Alanine Aminotransferase 29 U/L (0-40); Albumin Level 4.1 g/dL (3.5-5.0); Alkaline Phosphatase 52 U/L (39-117); Anion Gap 13 (12-20); Aspartate Amino Transferase 29 U/L (5-37); Bilirubin Total 0.6 mg/dL (0.0-1.0); Blood Urea Nitrogen 15 mg/dL (9-16); Calcium 9.2 mg/dL (8.4-10.2); Carbon Dioxide 27 mmol/L (22-29); Chloride 103 mmol/L (96-108); Cholesterol 155 mg/dL; Estimated Glomerular Filt Rate > 60; Glucose Fasting 129 mg/dL (60-99); HDL Cholesterol 41 mg/dL; LDL Cholesterol Calculated 89 mg/dl; Potassium 4.6 mmol/L (3.3-5.1); Sodium 138 mmol/L (135-145); Total Protein 7.3 g/dL (6.5-8.0); Triglycerides 127 mg/dL
[2022-10-31 14:56] LABS: Creatinine Urine 67.67 mg/dL; Microalbumin Urine < 5.0 mg/L
== END 2022-10-31 09:16 | disposition home or self-care (01) ==
LOC: HO.HMGCLDS 09:15
PROVIDERS: PCP Internal Medicine; Visit Provider Internal Medicine
DX: E11.9 Type 2 diabetes mellitus without complications (principal); I10 Essential (primary) hypertension; E78.5 Hyperlipidemia, unspecified
CPT/HCPCS: 36415; 80053; 80061; 82043; 83036

== ENCOUNTER → 2022-11-06 13:20 | Outpatient (BNVA) | payer MEDICARE, MEDICAID, SELFPAY | PROVIDERS: PCP Internal Medicine; Visit Provider Dietitian, Registered | DX: E11.9 Type 2 diabetes mellitus without complications (principal) | CPT/HCPCS: 97802 ==

== ENCOUNTER → 2022-12-19 13:22 | Outpatient (BNVA) | payer MEDICARE, MEDICAID, SELFPAY | PROVIDERS: PCP Internal Medicine; Visit Provider Dietitian, Registered | DX: E11.9 Type 2 diabetes mellitus without complications (principal) | CPT/HCPCS: 97803 ==

== ENCOUNTER 2023-02-13 08:58 | Outpatient (AMB) | payer MEDICARE, MEDICAID, SELFPAY ==
[2023-02-13 09:01] VITALS: BMI 45.4
--- NOTE | 2023-02-13 09:01 | MHC.AMNUTRGE ---
Intake VS Expanded 02/13/23 09:01 Height 5 ft 9 in Weight 307 lb 12.245 oz BMI 45.4 Intake Visit Reasons: DM Allergies A & D Allergy (Severe, Verified 11/02/22 08:55) anaphylaxis bacitracin [BACITRACIN] Allergy (Severe, Verified 11/02/22 08:55) SEIZURE , anaphylaxis Sulfa (Sulfonamide Antibiotics) Allergy (Mild, Verified 11/02/22 08:55) SWELLING dulaglutide [From Trulicity] Adverse Reaction (Intermediate, Verified 11/02/22 08:55) Diarrhea, vomiting hydrochlorothiazide Adverse Reaction (Verified 11/02/22 08:55) weakness in his hands HPI Nutrition Presentation Details Pt presents for MNT for T2DM Pt reports making minimal dietary modifications. Reports main challenge with diet modifications in the evening, choosing fried starches and increased appetite for sweets Most Recent Diabetes Results: Microalb/Creat Ratio TNP 10/31/22 Cholesterol 155 mg/dL 10/31/22 HDL Cholesterol 41 mg/dL 10/31/22 Triglycerides 127 mg/dL 10/31/22 Creatinine 0.96 mg/dL (0.5-1.4) 10/31/22 Blood Urea Nitrogen 15 mg/dL (9-16) 10/31/22 Sodium 138 mmol/L (135-145) 10/31/22 Potassium 4.6 mmol/L (3.3-5.1) 10/31/22 Chloride 103 mmol/L (96-108) 10/31/22 Carbon Dioxide 27 mmol/L (22-29) 10/31/22 Calcium 9.2 mg/dL (8.4-10.2) 10/31/22 AST 29 U/L (5-37) 10/31/22 ALT 29 U/L (0-40) 10/31/22 Total Protein 7.3 g/dL (6.5-8.0) 10/31/22 Albumin 4.1 g/dL (3.5-5.0) 10/31/22 [facility] Medical History Annual physical exam CHF (congestive heart failure) Dizziness DM type 2 (diabetes mellitus, type 2) DVT (deep venous thrombosis) Factor 5 Leiden mutation, heterozygous Hyperlipidemia Hypertension Obesity PVD (peripheral vascular disease) Skin abnormalities SOB (shortness of breath) STD (male) Venous (peripheral) insufficiency Vitamin B 12 deficiency Surgical History H/O vascular surgery Hx of colonoscopy Hx of esophagogastroduodenoscopy Family History Father CVD (cardiovascular disease) Mother CVD (cardiovascular disease) Daughter No problems noted. Son No problems noted. Social History Housing: House Are you a primary restorative care technician to a significant other at home: No Do you presently have visiting nurse or other home services: No Unable to assess alcohol history related to: Unknown Patient Tobacco Use Status: Former Tobacco user Quit Date: 2010 Tobacco use type: Cigarette e-Cigarette/Vaping Use: Never Used Current occupational status: employed Cognitive needs: No Hearing needs: No Vision needs: No Assessment & Plan Assessment & Plan (1) DM type 2 (diabetes mellitus, type 2): Code(s): E11.9 - Type 2 diabetes mellitus without complications Plan: Educate Pt on reduction ? Used wt : 139 kg Est kcal as per MSJ: 2688 (40% carb, 30% fat/prot) Est fluid needs: 3475 ml/d (25 ml/kg bw) Rec fiber: increase to 8-10 g per day and gradually increase to 35 g or as tolerated Rec Na: < 2000 mg /d Educate patient on: (R= Reviewed, V = verbalizes understanding N/R= Needs review N/A= not applicable) Food sources of carbohydrates and serving adequate serving sizes : R Difference between complex carbohydrates and simple carbohydrates, role of fiber: R Differences between fats (MUFA/PUFA/saturated fats, trans fats) and food sources of various fats: R Food sources of sodium and salt and healthy modifications for heart health and kidney health: R Vitamins and minerals: N/R How to interpret food labels: R Healthy Plate method concept: R V Physical activity: benefits and precaution: R Patient Instructions: Turn your meals into the healthy plate method (reducing on amount of pasta, rice, fries), have a salad as your second serving Reduce on sugars at bedtime (example have 2 apples or protein shake or yogurt with nuts , select sugar free ice cream and choose smaller cups/bowls . Drink water Monitor your blood sugar fasting and 2 hours after a meal unless otherwise specified by your doctor. Bring blood sugar record to your doctor for further assessment. Weight loss goal by next follow up 5 lbs less Coding Level of Care Code Nutr Indiv Subseq (10559) Diagnoses DM type 2 (diabetes mellitus, type 2) E11.9 Time Spent (min) 30
== END 2023-02-13 09:30 | disposition home or self-care (01) ==
PROVIDERS: PCP Internal Medicine; Referring Provider Internal Medicine; Visit Provider Dietitian, Registered
DX: E11.9 Type 2 diabetes mellitus without complications (principal)

== ENCOUNTER → 2023-02-13 08:58 | Outpatient (BNVA) | payer MEDICARE, MEDICAID, SELFPAY | PROVIDERS: Visit Provider Dietitian, Registered | DX: E11.9 Type 2 diabetes mellitus without complications (principal); Z71.3 Dietary counseling and surveillance | CPT/HCPCS: 97803 ==

== ENCOUNTER 2023-04-30 08:59 | Outpatient (AMB) | payer MEDICARE, MEDICAID, SELFPAY ==
--- NOTE | 2023-04-30 09:01 | A.OFFPC_ITS ---
Vital Signs 04/30/23 09:02 Height 5 ft 9 in Weight 313 lb BMI 46.2 BP 126/78 Blood Pressure Location Lt brachial Position Sitting Pulse 70 Pulse Source Pulse Oximeter Pulse Oximetry (%) 97 Oxygen Delivery Method Room Air Intake Visit Reasons: Annual PE/covered by Secondary Intake Note: Pt is here today for PE. Allergies A & D Allergy (Severe, Verified 04/30/23 09:03) anaphylaxis bacitracin [BACITRACIN] Allergy (Severe, Verified 04/30/23 09:03) SEIZURE , anaphylaxis Sulfa (Sulfonamide Antibiotics) Allergy (Mild, Verified 04/30/23 09:03) SWELLING dapagliflozin [From Farxiga] Adverse Reaction (Intermediate, Verified 04/30/23 09:15) Abdominal Pain dulaglutide [From Trulicity] Adverse Reaction (Intermediate, Verified 04/30/23 09:03) Diarrhea, vomiting lisinopril Adverse Reaction (Intermediate, Verified 04/30/23 09:20) Dizziness hydrochlorothiazide Adverse Reaction (Verified 04/30/23 09:03) weakness in his hands Medication List - Last Reconciled 04/30/23 by Esha Corbin MD atenolol 50 mg PO DAILY blood sugar diagnostic ([employer] Ultra Test strips) test blood sugar once a day blood-glucose meter ([employer] Ultra2 Meter kit) As directed cholecalciferol (vitamin D3) 25 mcg PO DAILY clobetasol 0.05% 1 appl topical BID CPAP (CPAP Machine/Device) auto PAP 6-20 cm with heated humidification with needed supplies diphenhydramine HCl (Benadryl) 50 mg (2 x 25 mg) PO Q6H PRN lancets ([employer] UltraSoft Lancets) TID lancets ([employer] Delica Lancets) test blood sugar daily lancing device with lancets ([employer] Delica Lancing Device kit) testing blood sugar once daily metformin ER 1,500 mg (2 x 750 mg) PO DAILY@1700 simvastatin 40 mg PO DAILY warfarin 7.5 mg PO DAILY warfarin 7.5 mg PO DAILY Tobacco use date assessed: 11/02/22 Dental Screening Dental Screen Date: 04/30/23 Did you have a dental visit in the last 12 months?: No Did you have a dental problem in the last 6 months where you did not have access to dental care?: No Was dental information given to patient?: Patient declined HPI Annual PE/covered by Secondary [facility] Details Patient presents for the pe. He reports fasting blood glucose readings between 120 to 140 and 2 hours after eating up to 200. Patient noticed relationship between his carbohydrate intake and high glucose readings. He could not tolerate Farxiga or Trulicity. Has been taking metformin. he follows up with photograph editor but not on regular basis. [facility] Medical History Vitamin B 12 deficiency CHF (congestive heart failure) Dizziness Annual physical exam Skin abnormalities STD (male) DM type 2 (diabetes mellitus, type 2) Venous (peripheral) insufficiency Obesity Hyperlipidemia PVD (peripheral vascular disease) Hypertension DVT (deep venous thrombosis) Factor 5 Leiden mutation, heterozygous SOB (shortness of breath) Surgical History H/O vascular surgery Hx of colonoscopy Hx of esophagogastroduodenoscopy Family History Father CVD (cardiovascular disease) Mother CVD (cardiovascular disease) Daughter No problems noted. Son No problems noted. Social History Housing: House Are you a primary critical care unit nurse to a significant other at home: No Do you presently have visiting nurse or other home services: No Unable to assess alcohol history related to: Unknown Patient Tobacco Use Status: Former Tobacco user Quit Date: 2010 Tobacco use type: Cigarette e-Cigarette/Vaping Use: Never Used Current occupational status: employed Cognitive needs: No Hearing needs: No Vision needs: No Questionnaire Thrive Questionnaire Date Thrive assessed: 11/02/22 I am a: Patient What is your living situation today?: I have a steady place to live Within the past 12 months, did the food you bought not last and you didn't have the money to get more?: Never true Within the past 12 months, did you worry whether your food would run out before you got money to buy more?: Never true AUDIT C Alcohol Use Questionnaire (AUDIT-C) 1. How often do you have a drink containing alcohol?: Never 3. How often do you have six or more drinks on one occasion?: Never Total Score: 0 ANISA-7 AMB Questionnaire ANISA-7 Date ANISA - 7 assessed: 11/02/22 Not being able to stop or control worryin = More than half the days Worrying too much about different things: 2 = More than half the days Source: Developed by Drs. Marco Antonio Zhu, Ginger Freed, Se Bahena and colleagues, with an educational teresita from [employer]. Review of Systems Const All systems reviewed & are unremarkable except as noted in HPI and below Reports no additional complaints Eyes Reports no additional complaints ENT Reports no additional complaints Card Reports no additional complaints Resp Reports no additional complaints GI Reports no additional complaints Reports no additional complaints Physical exam (Primary Care) Vital Signs: Last Vital Signs Pulse 70 04/30/23 09:02 BP 126/78 04/30/23 09:02 Pulse Ox 97 04/30/23 09:02 Oxygen Delivery Method Room Air 04/30/23 09:02 BMI result Body Mass Index 46.2 Tobacco/Smoking Status: Tobacco use Status Tobacco use date assessed 11/02/22 04/30/23 09:07 Patient Tobacco Use Status Former Tobacco user 04/30/23 09:07 Tobacco use type Cigarette 04/30/23 09:07 e-Cigarette/Vaping Use Never Used 04/30/23 09:07 Thrive Assessment: Date of Thrive Assessment Date Thrive assessed 11/02/22 04/30/23 09:07 Const General: no acute distress HENMT Head: Yes normal to inspection General nose exam: Normal external nose present Mouth: Normal oral and palatal mucosa present Throat: Yes posterior oropharynx normal Eyes General: appearance normal, both eyes and all related structures Neck Neck: Yes no lymphadenopathy and Yes supple Resp Effort & Inspection: normal respiratory effort Auscultation: clear to auscultation bilaterally Cardio Rhythm: regular rhythm Heart sounds: S1 normal heart sound present and S2 normal heart sound present GI Inspection: Yes normal to inspection Palpation (GI): Soft to palpation Percussion: Yes normal to percussion Auscultation: normal bowel sounds Assessment and Plan Assessment & Plan (1) Hypertension: Comment: Could not tolerate lisinopril causes dizziness Code(s): I10 - Essential (primary) hypertension Plan: Continue atenolol (2) Hyperlipidemia: Code(s): E78.5 - Hyperlipidemia, unspecified Plan: Continue statin (3) DM type 2 (diabetes mellitus, type 2): Code(s): E11.9 - Type 2 diabetes mellitus without complications Plan: Patient will have a fasting blood work today including A1c, ADA diet increase physical activity weight loss discussed with the patient he will continue metformin and will follow-up with photograph editor. Patient will return in 3 m [facility] with a fasting labs before (4) APOLLO (obstructive sleep apnea): Comment: On CPAP Code(s): G47.33 - Obstructive sleep apnea (adult) (pediatric) Plan: Continue Cpap (5) Annual physical exam: Code(s): Z00.00 - Encounter for general adult medical examination without abnormal findings Plan: Well-balanced diet regular exercise weight loss discussed with the patient, follow-up in 3 months Orders: Orders Comprehensive [place]. Panel Fast 3 Months E11.9 - Type 2 diabetes mellitus without complications, E78.5 - Hyperlipidemia, unspecified, I10 - Essential (primary) hypertension Lipid Panel 3 Months E11.9 - Type 2 diabetes mellitus without complications, E78.5 - Hyperlipidemia, unspecified, I10 - Essential (primary) hypertension Microalbumin, Random (w Creat) 3 Months E11.9 - Type 2 diabetes mellitus without complications, E78.5 - Hyperlipidemia, unspecified, I10 - Essential (primary) hypertension Hemoglobin A1c 3 Months E11.9 - Type 2 diabetes mellitus without complications, E78.5 - Hyperlipidemia, unspecified, I10 - Essential (primary) hypertension Medications: New atenolol 50 mg (2 x 25 mg) PO DAILY 60 tabs 2RF I10 - Essential (primary) hypertension Coding Level of Care Code Est Pt Prev Care 40-64y(51223) Diagnoses Hypertension I10 Hyperlipidemia E78.5 DM type 2 (diabetes mellitus, type 2) E11.9 APOLLO (obstructive sleep apnea) G47.33 Annual physical exam Z00.00
[2023-04-30 09:02] VITALS: BP 126/78; PULSE 70; O2SAT 97; BMI 46.2
== END 2023-04-30 09:48 | disposition home or self-care (01) ==
PROVIDERS: PCP Internal Medicine; Visit Provider Internal Medicine
DX: Z00.00 Encounter for general adult medical examination without abnormal findings (principal); I10 Essential (primary) hypertension; E78.5 Hyperlipidemia, unspecified; E11.9 Type 2 diabetes mellitus without complications; G47.33 Obstructive sleep apnea (adult) (pediatric)
CPT/HCPCS: 99396

== ENCOUNTER 2023-04-30 09:25 | Outpatient (REF) | payer MEDICARE, MEDICAID, SELFPAY ==
[2023-04-30 11:59] LABS: MANUAL DIFF FLAG NO
[2023-04-30 12:08] LABS: Basophils Absolute Auto 0.1 X10*3/uL (0.0-0.2); Basophils Percent Auto 0.8 % (0-2); Eosinophils Absolute Auto 0.1 X10*3/uL (0.0-0.4); Eosinophils Percent Auto 1.1 % (0-4); Hematocrit 44.1 % (42.0-52.0); Hemoglobin 14.6 g/dl (14.0-18.0); Imm Gran Abs Auto 0.02 X10*3/uL (0.00-0.03); Imm Gran Pct Auto 0.3 % (0.0-0.4); Lymphocytes Absolute Auto 1.7 X10*3/uL (1.2-4.9); Lymphocytes Percent Auto 23.6 % (20-40); Mean Corpuscular HGB Conc 33.1 g/dl (31.0-36.0); Mean Corpuscular Hemoglobin 30.9 pg (27.0-33.0); Mean Corpuscular Volume 93.4 fL (80.0-98.0); Mean Platelet Volume 10.7 fL (9.4-12.4); Monocytes Absolute Auto 0.5 X10*3/uL (0.1-1.2); Monocytes Percent Auto 7.3 % (2-11); Neutrophils Absolute Auto 4.8 x10*3/uL (2.0-8.3); Neutrophils Percent Auto 66.9 % (45-73); Platelet Count 249 X10*3/uL (160-400); Red Blood Count 4.72 X10*6/uL (4.60-5.80); Red Cell Distribution Width 12.6 % (11.0-16.0); White Blood Count 7.1 X10*3/uL (4.8-10.8)
[2023-04-30 12:16] LABS: Estimated Average Glucose 163 mg/dL; Hemoglobin A1c % 7.3 % (<6.0)
[2023-04-30 13:17] LABS: Microalbum/Creatinine Ratio Ur 6.7 ug/mg cr (<30)
[2023-04-30 13:19] LABS: Alanine Aminotransferase 30 U/L (0-40); Alkaline Phosphatase 48 U/L (39-117); Anion Gap 14 (12-20); Aspartate Amino Transferase 25 U/L (5-37); Bilirubin Total 0.5 mg/dL (0.0-1.0); Blood Urea Nitrogen 16 mg/dL (9-16); Carbon Dioxide 22 mmol/L (22-29); Chloride 104 mmol/L (96-108); Cholesterol 133 mg/dL (<200); Estimated Glomerular Filt Rate > 60; Glucose Fasting 157 mg/dL (60-99); HDL Cholesterol 38 mg/dL (>40); LDL Cholesterol Calculated 66 mg/dL (<100); Sodium 136 mmol/L (135-145); Total Protein 7.7 g/dL (6.5-8.0); Triglycerides 145 mg/dL (<150)
== END 2023-04-30 09:26 | disposition home or self-care (01) ==
LOC: HO.HMGCLDS 09:25
PROVIDERS: PCP Internal Medicine; Visit Provider Internal Medicine
DX: E78.5 Hyperlipidemia, unspecified (principal); E11.9 Type 2 diabetes mellitus without complications; I10 Essential (primary) hypertension
CPT/HCPCS: 36415; 80053; 80061; 82043; 82570; 83036; 85025

== ENCOUNTER 2023-07-17 07:56 | Outpatient (AMB) | payer MEDICARE, MEDICAID, SELFPAY ==
--- NOTE | 2023-07-17 08:02 | MHC.PC.OV ---
Vital Signs 07/17/23 08:03 Height 5 ft 9 in Weight 313 lb BMI 46.2 BP 130/78 Blood Pressure Location Lt brachial Position Sitting Pulse 73 Pulse Source Pulse Oximeter Pulse Oximetry (%) 100 Oxygen Delivery Method Room Air Intake Visit Reasons: ER follow up Intake Note: Pt is here today for ER follow up visit. Pt states that he has been getting episodes of dizziness. Allergies A & D Allergy (Severe, Verified 07/17/23 08:04) anaphylaxis bacitracin [BACITRACIN] Allergy (Severe, Verified 07/17/23 08:04) SEIZURE , anaphylaxis Sulfa (Sulfonamide Antibiotics) Allergy (Mild, Verified 07/17/23 08:04) SWELLING dapagliflozin [From Farxiga] Adverse Reaction (Intermediate, Verified 07/17/23 08:04) Abdominal Pain dulaglutide [From Trulicity] Adverse Reaction (Intermediate, Verified 07/17/23 08:04) Diarrhea, vomiting lisinopril Adverse Reaction (Intermediate, Verified 07/17/23 08:04) Dizziness hydrochlorothiazide Adverse Reaction (Verified 07/17/23 08:04) weakness in his hands SSRI Adverse Reaction (Intermediate, Uncoded 07/17/23 15:32) DECREASE LIBIDO Medication List - Last Reconciled 07/17/23 by Esha Corbin MD atenolol 50 mg (2 x 25 mg) PO DAILY blood sugar diagnostic ([employer] Ultra Test strips) test blood sugar once a day blood-glucose meter ([employer] Ultra2 Meter kit) As directed cholecalciferol (vitamin D3) 25 mcg PO DAILY clobetasol 0.05% 1 appl topical BID CPAP (CPAP Machine/Device) auto PAP 6-20 cm with heated humidification with needed supplies diphenhydramine HCl (Benadryl) 50 mg (2 x 25 mg) PO Q6H PRN lancets ([employer] UltraSoft Lancets) TID lancets ([employer] Delica Lancets) test blood sugar daily lancing device with lancets ([employer] Delica Lancing Device kit) testing blood sugar once daily metformin ER 1,500 mg (2 x 750 mg) PO DAILY@1700 simvastatin 40 mg PO DAILY warfarin 7.5 mg PO DAILY warfarin 7.5 mg PO DAILY Tobacco use date assessed: 07/17/23 Dental Screening Dental Screen Date: 07/17/23 Did you have a dental visit in the last 12 months?: Yes Did you have a dental problem in the last 6 months where you did not have access to dental care?: No Was dental information given to patient?: Patient has dentist HPI ER follow up HPI Details Patient presents for the follow-up of ER visit for symptoms of recurring dizziness lightheadedness with negative workup. Patient reports feeling anxious. Type 2 diabetes hypertension are controlled on current medications. [facility], [facility] Medical History Vitamin B 12 deficiency CHF (congestive heart failure) Dizziness Annual physical exam Skin abnormalities STD (male) DM type 2 (diabetes mellitus, type 2) Venous (peripheral) insufficiency Obesity Hyperlipidemia PVD (peripheral vascular disease) Hypertension DVT (deep venous thrombosis) Factor 5 Leiden mutation, heterozygous SOB (shortness of breath) Surgical History H/O vascular surgery Hx of colonoscopy Hx of esophagogastroduodenoscopy Family History Father CVD (cardiovascular disease) Mother CVD (cardiovascular disease) Daughter No problems noted. Son No problems noted. Social History Housing: House Are you a primary care asst to a significant other at home: No Do you presently have visiting nurse or other home services: No Unable to assess alcohol history related to: Unknown Patient Tobacco Use Status: Former Tobacco user Quit Date: 2010 Tobacco use type: Cigarette e-Cigarette/Vaping Use: Never Used Current occupational status: employed Cognitive needs: No Hearing needs: No Vision needs: No Questionnaire Thrive Questionnaire Date Thrive assessed: 11/02/22 AUDIT C Alcohol Use Questionnaire (AUDIT-C) 1. How often do you have a drink containing alcohol?: Never 3. How often do you have six or more drinks on one occasion?: Never Total Score: 0 ANISA-7 AMB Questionnaire ANISA-7 Date ANISA - 7 assessed: 11/02/22 Source: Developed by Drs. Marco Antonio Zhu, Ginger Freed, Se Bahena and colleagues, with an educational teresita from [employer]. Review of Systems Const All systems reviewed & are unremarkable except as noted in HPI and below Reports no additional complaints Eyes Reports no additional complaints ENT Reports no additional complaints Card Reports no additional complaints Resp Reports no additional complaints GI Reports no additional complaints Physical exam (Primary Care) Vital Signs: Last Vital Signs Pulse 73 07/17/23 08:03 BP 130/78 07/17/23 08:03 Pulse Ox 100 07/17/23 08:03 Oxygen Delivery Method Room Air 07/17/23 08:03 BMI result Body Mass Index 46.2 Tobacco/Smoking Status: Tobacco use Status Tobacco use date assessed 07/17/23 07/17/23 08:09 Patient Tobacco Use Status Former Tobacco user 07/17/23 08:02 Tobacco use type Cigarette 07/17/23 08:02 e-Cigarette/Vaping Use Never Used 07/17/23 08:02 Thrive Assessment: Date of Thrive Assessment Date Thrive assessed 11/02/22 07/17/23 08:02 Const General: no acute distress Eyes General: appearance normal, both eyes and all related structures Neck Neck: Yes supple Resp Effort & Inspection: normal respiratory effort Auscultation: clear to auscultation bilaterally Cardio Rhythm: regular rhythm Heart sounds: S1 normal heart sound present Assessment and Plan Assessment & Plan (1) Generalized anxiety disorder: Code(s): F41.1 - Generalized anxiety disorder Plan: REFERRED TO COUNSELING, STRESS MANAGEMENT and REGULAR PHYSICAL ACTIVITY DISCUSSED WITH THE PATIENT (2) DM type 2 (diabetes mellitus, type 2): Code(s): E11.9 - Type 2 diabetes mellitus without complications Plan: Continue current medications follow-up in 2 month (3) Hypertension: Comment: Could not tolerate lisinopril causes dizziness Code(s): I10 - Essential (primary) hypertension Plan: Continue Atenolol Medications: Discontinued warfarin Discontinued Reason: Doctor's Order 7.5 mg PO DAILY 90 tabs 3RF Coding Level of Care Code Est Pt Level 4 (98564) Diagnoses Generalized anxiety disorder F41.1 DM type 2 (diabetes mellitus, type 2) E11.9 Hypertension I10
[2023-07-17 08:03] VITALS: BP 130/78; PULSE 73; O2SAT 100; BMI 46.2
== END 2023-07-17 15:25 | disposition home or self-care (01) ==
PROVIDERS: PCP Internal Medicine; Visit Provider Internal Medicine
DX: F41.1 Generalized anxiety disorder (principal); E11.9 Type 2 diabetes mellitus without complications; I10 Essential (primary) hypertension
CPT/HCPCS: 99214

== ENCOUNTER 2023-09-18 14:34 | Outpatient (AMB) | payer MEDICARE, MEDICAID, SELFPAY ==
--- NOTE | 2023-09-18 14:32 | MHC.PC.OV ---
Intake Visit Reasons: Telehealth feeling dizzy on and off Allergies A & D Allergy (Severe, Verified 09/18/23 14:32) anaphylaxis bacitracin [BACITRACIN] Allergy (Severe, Verified 09/18/23 14:32) SEIZURE , anaphylaxis Sulfa (Sulfonamide Antibiotics) Allergy (Mild, Verified 09/18/23 14:32) SWELLING dapagliflozin [From Farxiga] Adverse Reaction (Intermediate, Verified 09/18/23 14:32) Abdominal Pain dulaglutide [From Trulicity] Adverse Reaction (Intermediate, Verified 09/18/23 14:32) Diarrhea, vomiting lisinopril Adverse Reaction (Intermediate, Verified 09/18/23 14:32) Dizziness hydrochlorothiazide Adverse Reaction (Verified 09/18/23 14:32) weakness in his hands SSRI Adverse Reaction (Intermediate, Uncoded 09/18/23 14:32) DECREASE LIBIDO Tobacco use date assessed: 09/18/23 Dental Screening Dental Screen Date: 09/18/23 Did you have a dental visit in the last 12 months?: Yes Did you have a dental problem in the last 6 months where you did not have access to dental care?: No Was dental information given to patient?: Patient has dentist HPI Telehealth feeling dizzy on and off HPI Details This is a telehealth visit. Patient reports recurrent symptoms of lightheadedness and pressure on his chin on and off not related to stressful situation or physical activity. Patient had similar symptoms in the past with negative extensive neurological and cardiac workup. Patient used to take vitamin D and B12 supplement but stopped taking them 3 months ago. Patient reports fasting glucose between 140-160 and after meals over 200. He denies polyuria polydipsia or hypoglycemia. He reports trying to follow low carb diet but feels hungry after meal. He reports blood pressure well controlled on visits to wound clinic weekly. [facility] Medical History (Updated 09/18/23 @ 14:55 by Esha Corbin MD) Vitamin B 12 deficiency CHF (congestive heart failure) Dizziness Annual physical exam Skin abnormalities STD (male) DM type 2 (diabetes mellitus, type 2) Venous (peripheral) insufficiency Obesity Hyperlipidemia PVD (peripheral vascular disease) Hypertension DVT (deep venous thrombosis) Factor 5 Leiden mutation, heterozygous SOB (shortness of breath) Surgical History Hx of esophagogastroduodenoscopy Hx of colonoscopy H/O vascular surgery Family History Father CVD (cardiovascular disease) Mother CVD (cardiovascular disease) Daughter No problems noted. Son No problems noted. Social History Housing: House Are you a primary day care provider to a significant other at home: No Do you presently have visiting nurse or other home services: No Unable to assess alcohol history related to: Unknown Patient Tobacco Use Status: Former Tobacco user Quit Date: 2010 Tobacco use type: Cigarette e-Cigarette/Vaping Use: Never Used Current occupational status: employed Cognitive needs: No Hearing needs: No Vision needs: No Questionnaire PHQ-9 Over the last 2 weeks, how often have you been bothered by any of the following problems? 1. Little interest or pleasure in doing things: not at all 2. Feeling down, depressed, or hopeless: not at all 3. Trouble falling or staying asleep, or sleeping too much: not at all 4. Feeling tired or having little energy: not at all 5. Poor appetite or overeating: not at all 6. Feeling bad about yourself - or that you are a failure or have let yourself or your family down: not at all 7. Trouble concentrating on things, such as reading the newspaper or watching television: not at all 8. Moving or speaking so slowly that other people could have noticed. Or the opposite - being so fidgety or restless that you have been moving around a lot more than usual: not at all 9. Thoughts that you would be better off or of hurting yourself in some way: not at all Total score: 0 Depression Screening Interpretation: Negative Depression Screening Done: Yes Source: Developed by Drs. Marco Antonio Zhu, Ginger Freed, Se Bahena and colleagues, with an educational teresita from [employer]. Thrive Questionnaire Date Thrive assessed: 09/18/23 I am a: Patient What is your living situation today?: I have a steady place to live Within the past 12 months, did the food you bought not last and you didn't have the money to get more?: Never true Within the past 12 months, did you worry whether your food would run out before you got money to buy more?: Never true Do you have trouble paying for medicines?: No Do you have trouble getting transportation to medical appointments?: No Do you have trouble paying your heating and electricity bill?: No Do you have trouble taking care of your child, family member or friend?: No Do you have trouble with day-to-day activities such as bathing, preparing meals, shopping, managing finances, etc.?: No Are you currently unemployed and looking for a job?: No Are you interested in more education?: No Please select the resources that you would like help with: None Currently or been in a relationship where the following occur: no concerns reported THRIVE Score: 0 AUDIT C Alcohol Use Questionnaire (AUDIT-C) 1. How often do you have a drink containing alcohol?: Never 3. How often do you have six or more drinks on one occasion?: Never Total Score: 0 ANISA-7 AMB Questionnaire ANISA-7 Date ANISA - 7 assessed: 09/18/23 Feeling nervous, anxious, or on edge: 0 = Not at all Not being able to stop or control worryin = Not at all Worrying too much about different things: 0 = Not at all Trouble relaxin = Not at all Being so restless that it is hard to sit still: 0 = Not at all Becoming easily annoyed or irritable: 0 = Not at all Feeling afraid as if something awful might happen: 0 = Not at all Total ANISA-7 score (0-4 normal; 5-9 mild; 10-14 moderate; 15-21 severe): 0 Source: Developed by Drs. Marco Antonio Zhu, Ginger Freed, Se Bahena and colleagues, with an educational teresita from [employer]. Review of Systems Const All systems reviewed & are unremarkable except as noted in HPI and below Eyes Reports no additional complaints ENT Reports no additional complaints Card Reports no additional complaints Resp Reports no additional complaints GI Reports no additional complaints Reports no additional complaints Physical exam (Primary Care) Tobacco/Smoking Status: Tobacco use Status Tobacco use date assessed 09/18/23 09/18/23 14:35 Patient Tobacco Use Status Former Tobacco user 09/18/23 14:35 Tobacco use type Cigarette 09/18/23 14:35 e-Cigarette/Vaping Use Never Used 09/18/23 14:35 PHQ-9: PHQ-9 Score PHQ-9: Total score 0 09/18/23 14:35 Depression Screening Interpretation: Negative Thrive Assessment: Date of Thrive Assessment Date Thrive assessed 09/18/23 09/18/23 14:35 Currently or been in a relationship where the following occur: no concerns reported Telehealth Telehealth Location of provider rendering services: practice address Location of patient: address on file Patient Identification confirmed using: Name, : Yes Telehealth method: voice only Patient verbally consented to treatment: Yes Patient verbally consented to billing insurance company: Yes Patient informed of any privacy concerns related to visit: Yes Minutes spent on Phone/Video with Pt.: 25 Assessment and Plan Assessment & Plan (1) Vitamin B 12 deficiency: Code(s): E53.8 - Deficiency of other specified B group vitamins Plan: Patient will restart vitamin B12 and vitamin-D supplement (2) Dizziness: Comment: Extensive negative neurological and cardiac workup 2022 Code(s): R42 - Dizziness and giddiness Plan: He was advised to restart supplements as above, stress management discussed with the patient. He was advised to increase fluid intake (3) DM type 2 (diabetes mellitus, type 2): Code(s): E11.9 - Type 2 diabetes mellitus without complications Plan: For poorly controlled diabetes Mounjaro 2.5 mg will be started in addition to metformin. Side effects discussed with the patient. ADA diet increase physical activity weight loss discussed with the pt. He will follow-up in 1 month with a fasting labs before (4) Hypertension: Comment: Could not tolerate lisinopril causes dizziness Code(s): I10 - Essential (primary) hypertension Coding Level of Care Code New Pt Level 4 (66027) Diagnoses Vitamin B 12 deficiency E53.8 Dizziness R42 DM type 2 (diabetes mellitus, type 2) E11.9 Hypertension I10
== END 2023-09-18 14:57 | disposition home or self-care (01) ==
PROVIDERS: PCP Internal Medicine; Visit Provider Internal Medicine
DX: E53.8 Deficiency of other specified B group vitamins (principal); R42 Dizziness and giddiness; E11.9 Type 2 diabetes mellitus without complications; I10 Essential (primary) hypertension
CPT/HCPCS: 99443

== ENCOUNTER 2023-10-25 07:56 | Outpatient (REF) | payer MEDICARE, MEDICAID, SELFPAY ==
[2023-10-25 11:00] LABS: MANUAL DIFF FLAG NO
[2023-10-25 11:21] LABS: Basophils Absolute Auto 0.1 X10*3/uL (0.0-0.2); Basophils Percent Auto 0.8 % (0-2); Eosinophils Absolute Auto 0.1 X10*3/uL (0.0-0.4); Eosinophils Percent Auto 1.2 % (0-4); Hemoglobin 14.9 g/dl (14.0-18.0); Imm Gran Abs Auto 0.03 X10*3/uL (0.00-0.03); Imm Gran Pct Auto 0.4 % (0.0-0.4); Mean Corpuscular HGB Conc 33.1 g/dl (31.0-36.0); Mean Corpuscular Hemoglobin 30.5 pg (27.0-33.0); Mean Corpuscular Volume 92.2 fL (80.0-98.0); Mean Platelet Volume 10.2 fL (9.4-12.4); Monocytes Absolute Auto 0.5 X10*3/uL (0.1-1.2); Monocytes Percent Auto 6.6 % (2-11); Neutrophils Absolute Auto 4.5 x10*3/uL (2.0-8.3); Platelet Count 236 X10*3/uL (160-400); Red Blood Count 4.88 X10*6/uL (4.60-5.80); Red Cell Distribution Width 13.1 % (11.0-16.0); White Blood Count 7.2 X10*3/uL (4.8-10.8)
[2023-10-25 11:31] LABS: Estimated Average Glucose 166 mg/dL; Hemoglobin A1c % 7.4 % (<6.0)
[2023-10-25 11:39] LABS: Alanine Aminotransferase 27 U/L (0-40); Albumin Level 4.1 g/dL (3.5-5.0); Alkaline Phosphatase 50 U/L (39-117); Anion Gap 15 (12-20); Aspartate Amino Transferase 27 U/L (5-37); Bilirubin Total 0.4 mg/dL (0.0-1.0); Blood Urea Nitrogen 12 mg/dL (9-16); Calcium 9.3 mg/dL (8.4-10.2); Carbon Dioxide 24 mmol/L (22-29); Chloride 103 mmol/L (96-108); Cholesterol 117 mg/dL (<200); Estimated Glomerular Filt Rate > 60; Glucose Fasting 116 mg/dL (60-99); HDL Cholesterol 40 mg/dL (>40); LDL Cholesterol Calculated 47 mg/dL (<100); Potassium 3.9 mmol/L (3.3-5.1); Sodium 138 mmol/L (135-145); Total Protein 7.8 g/dL (6.5-8.0); Triglycerides 154 mg/dL (<150)
[2023-10-25 11:59] LABS: Vitamin D 25-OH Total 30.5 ng/mL (>30)
[2023-10-25 12:02] LABS: Folate 7.6 ng/mL (> or = 4.0); Vitamin B12 361 pg/mL (200-900)
== END 2023-10-25 07:57 | disposition home or self-care (01) ==
LOC: HO.HMGCLDS 07:56
PROVIDERS: PCP Internal Medicine; Visit Provider Internal Medicine
DX: E53.8 Deficiency of other specified B group vitamins (principal); E11.9 Type 2 diabetes mellitus without complications; I10 Essential (primary) hypertension; E78.5 Hyperlipidemia, unspecified
CPT/HCPCS: 36415; 80053; 80061; 82043; 82306; 82570; 82607; 82746; 83036; 85025

== ENCOUNTER 2023-10-31 12:32 | Outpatient (AMB) | payer MEDICARE, MEDICAID, SELFPAY ==
--- NOTE | 2023-10-31 13:13 | MHC.PC.OV ---
Vital Signs 10/31/23 13:15 Height 5 ft 9 in Weight 294 lb BMI 43.4 BP 104/66 Blood Pressure Location Lt brachial Position Sitting Pulse 66 Pulse Source Pulse Oximeter Pulse Oximetry (%) 97 Oxygen Delivery Method Room Air Intake Visit Reasons: 6 month follow up Intake Note: Pt is here today for 6 months follow up visit. Allergies A & D Allergy (Severe, Verified 10/31/23 13:17) anaphylaxis bacitracin [BACITRACIN] Allergy (Severe, Verified 10/31/23 13:17) SEIZURE , anaphylaxis Sulfa (Sulfonamide Antibiotics) Allergy (Mild, Verified 10/31/23 13:17) SWELLING adhesive tape Allergy (Verified 10/31/23 13:17) Rash dapagliflozin [From Farxiga] Adverse Reaction (Intermediate, Verified 10/31/23 13:17) Abdominal Pain dulaglutide [From Trulicity] Adverse Reaction (Intermediate, Verified 10/31/23 13:17) Diarrhea, vomiting lisinopril Adverse Reaction (Intermediate, Verified 10/31/23 13:17) Dizziness hydrochlorothiazide Adverse Reaction (Verified 10/31/23 13:17) weakness in his hands SSRI Adverse Reaction (Intermediate, Uncoded 10/31/23 13:17) DECREASE LIBIDO Medication List - Last Reconciled 10/31/23 by Esha Corbin MD atenolol 50 mg (2 x 25 mg) PO DAILY blood sugar diagnostic ([employer] Ultra Test strips) test blood sugar once a day blood-glucose meter ([employer] Ultra2 Meter kit) As directed clobetasol 0.05% 1 appl topical BID CPAP (CPAP Machine/Device) auto PAP 6-20 cm with heated humidification with needed supplies diphenhydramine HCl (Benadryl) 50 mg (2 x 25 mg) PO Q6H PRN lancets ([employer] UltraSoft Lancets) TID lancets ([employer] Delica Lancets) test blood sugar daily lancing device with lancets ([employer] Delica Lancing Device kit) testing blood sugar once daily metformin ER 1,500 mg (2 x 750 mg) PO DAILY@1700 simvastatin 40 mg PO DAILY tirzepatide (Mounjaro) 2.5 mg (0.5 mL) subcut QWEEK 4 weeks warfarin 7.5 mg PO DAILY Tobacco use date assessed: 09/18/23 HPI 6 month follow up HPI Details Pt presents for f/u DM2, better fasting around 100. Patient has been tolerating Mounjaro well and lost 15 lb in 1 month. Hypertension and hyperlipidemia are controlled on current medications. He uses a CPAP for obstructive sleep apnea every night [facility] Medical History (Updated 10/31/23 @ 14:42 by Esha Corbin MD) Vitamin B 12 deficiency Dizziness Annual physical exam Skin abnormalities STD (male) DM type 2 (diabetes mellitus, type 2) Venous (peripheral) insufficiency Obesity Hyperlipidemia PVD (peripheral vascular disease) Hypertension DVT (deep venous thrombosis) Factor 5 Leiden mutation, heterozygous SOB (shortness of breath) Surgical History Hx of esophagogastroduodenoscopy Hx of colonoscopy H/O vascular surgery Family History Father CVD (cardiovascular disease) Mother CVD (cardiovascular disease) Daughter No problems noted. Son No problems noted. Social History Housing: House Are you a primary day care attendant to a significant other at home: No Do you presently have visiting nurse or other home services: No Unable to assess alcohol history related to: Unknown Patient Tobacco Use Status: Former Tobacco user Quit Date: 2010 Tobacco use type: Cigarette e-Cigarette/Vaping Use: Never Used Current occupational status: employed Cognitive needs: No Hearing needs: No Vision needs: No Questionnaire Thrive Questionnaire Date Thrive assessed: 09/18/23 ANISA-7 AMB Questionnaire ANISA-7 Date ANISA - 7 assessed: 09/18/23 Source: Developed by Drs. Marco Antonio Zhu, Ginger Freed, Se Bahena and colleagues, with an educational teresita from [employer]. Review of Systems Const All systems reviewed & are unremarkable except as noted in HPI and below Reports no additional complaints Eyes Reports no additional complaints ENT Reports no additional complaints Card Reports no additional complaints Resp Reports no additional complaints GI Reports no additional complaints Reports no additional complaints Physical exam (Primary Care) Vital Signs: Last Vital Signs Pulse 66 10/31/23 13:15 BP 104/66 10/31/23 13:15 Pulse Ox 97 10/31/23 13:15 Oxygen Delivery Method Room Air 10/31/23 13:15 BMI result Body Mass Index 43.4 Tobacco/Smoking Status: Tobacco use Status Tobacco use date assessed 09/18/23 10/31/23 13:13 Patient Tobacco Use Status Former Tobacco user 10/31/23 13:13 Tobacco use type Cigarette 10/31/23 13:13 e-Cigarette/Vaping Use Never Used 10/31/23 13:13 Thrive Assessment: Date of Thrive Assessment Date Thrive assessed 09/18/23 10/31/23 13:13 Const General: no acute distress HENMT Head: Yes normal to inspection Throat: Yes posterior oropharynx normal Neck Neck: Yes supple Resp Effort & Inspection: normal respiratory effort Auscultation: clear to auscultation bilaterally Cardio Rhythm: regular rhythm Heart sounds: S1 normal heart sound present and S2 normal heart sound present Assessment and Plan Assessment & Plan (1) DM type 2 (diabetes mellitus, type 2): Code(s): E11.9 - Type 2 diabetes mellitus without complications Plan: A1c is 7.4, continue metformin and Mounjaro ADA diet increase physical activity and weight loss discussed with the patient follow-up in 3 months (2) Hyperlipidemia: Code(s): E78.5 - Hyperlipidemia, unspecified Plan: Continue statin (3) Hypertension: Comment: Could not tolerate lisinopril causes dizziness Code(s): I10 - Essential (primary) hypertension Plan: Continue atenolol (4) APOLLO (obstructive sleep apnea): Comment: On CPAP Code(s): G47.33 - Obstructive sleep apnea (adult) (pediatric) Plan: Continue Cpap Orders: Orders Comprehensive [place]. Panel Fast 3 Months E11.9 - Type 2 diabetes mellitus without complications, E78.5 - Hyperlipidemia, unspecified, I10 - Essential (primary) hypertension Complete Blood Count Auto Diff 3 Months E11.9 - Type 2 diabetes mellitus without complications, E78.5 - Hyperlipidemia, unspecified, I10 - Essential (primary) hypertension Lipid Panel 3 Months E11.9 - Type 2 diabetes mellitus without complications, E78.5 - Hyperlipidemia, unspecified, I10 - Essential (primary) hypertension Hemoglobin A1c 3 Months E11.9 - Type 2 diabetes mellitus without complications, E78.5 - Hyperlipidemia, unspecified, I10 - Essential (primary) hypertension Microalbumin, Random (w Creat) 3 Months E11.9 - Type 2 diabetes mellitus without complications, E78.5 - Hyperlipidemia, unspecified, I10 - Essential (primary) hypertension Medications: Refilled metformin ER 1,500 mg (2 x 750 mg) PO DAILY@1700 180 tabs 3RF tirzepatide (Mounjaro) 2.5 mg (0.5 mL) subcut QWEEK 4 weeks 6 mL 1RF Coding Level of Care Code Est Pt Level 4 (08986) Diagnoses DM type 2 (diabetes mellitus, type 2) E11.9 Hyperlipidemia E78.5 Hypertension I10 AOPLLO (obstructive sleep apnea) G47.33
[2023-10-31 13:15] VITALS: BP 104/66; PULSE 66; O2SAT 97; BMI 43.4
== END 2023-10-31 13:52 | disposition home or self-care (01) ==
PROVIDERS: PCP Internal Medicine; Visit Provider Internal Medicine
DX: E11.69 Type 2 diabetes mellitus with other specified complication (principal); E78.5 Hyperlipidemia, unspecified; I10 Essential (primary) hypertension; G47.33 Obstructive sleep apnea (adult) (pediatric)
CPT/HCPCS: 99214

== ENCOUNTER 2024-01-21 07:21 | Outpatient (AMB) | payer MEDICARE, MEDICAID, SELFPAY ==
--- NOTE | 2024-01-21 07:29 | MHC.OFFVIS ---
Vital Signs 01/21/24 07:44 Height 5 ft 9 in Weight 290 lb BMI 42.8 BP 118/75 Blood Pressure Location Lt brachial Position Sitting Pulse 71 Intake Visit Reasons: Pre Colonoscopy Intake Note: Patient follow up for pre colonoscopy screening Patient cc: some swallowing problems with sticky food, and also funny feeling on his face muscle after eating. In Store Demonstrator Required: No Accompanied by: Spouse Allergies A & D Allergy (Severe, Verified 01/31/24 12:07) anaphylaxis bacitracin [BACITRACIN] Allergy (Severe, Verified 01/31/24 12:07) SEIZURE , anaphylaxis Sulfa (Sulfonamide Antibiotics) Allergy (Mild, Verified 01/31/24 12:07) SWELLING adhesive tape Allergy (Verified 01/31/24 12:07) Rash dapagliflozin [From Farxiga] Adverse Reaction (Intermediate, Verified 01/31/24 12:07) Abdominal Pain dulaglutide [From Trulicity] Adverse Reaction (Intermediate, Verified 01/31/24 12:07) Diarrhea, vomiting lisinopril Adverse Reaction (Intermediate, Verified 01/31/24 12:07) Dizziness hydrochlorothiazide Adverse Reaction (Verified 01/31/24 12:07) weakness in his hands SSRI Adverse Reaction (Intermediate, Uncoded 10/31/23 13:17) DECREASE LIBIDO Medication List - Last Reconciled 01/21/24 by Artur Francisco MD atenolol 50 mg (2 x 25 mg) PO DAILY blood sugar diagnostic ([employer] Ultra Test strips) test blood sugar once a day blood-glucose meter ([employer] Ultra2 Meter kit) As directed clobetasol 0.05% 1 appl topical BID CPAP (CPAP Machine/Device) auto PAP 6-20 cm with heated humidification with needed supplies diphenhydramine HCl (Benadryl) 50 mg (2 x 25 mg) PO Q6H PRN lancets ([employer] UltraSoft Lancets) TID lancets ([employer] Delica Lancets) test blood sugar daily lancing device with lancets ([employer] Delica Lancing Device kit) testing blood sugar once daily metformin ER 1,500 mg (2 x 750 mg) PO DAILY@1700 simvastatin 40 mg PO DAILY tirzepatide (Mounjaro) 2.5 mg (0.5 mL) subcut QWEEK 4 weeks warfarin 7.5 mg PO DAILY HPI HPI Pre Colonoscopy: Details: GI clinic visit for this 51 YM with type 2 diabetes, hyperlipidemia, and hypertension for fu of GERD and colon polyps.. Pt has venous insufficiency in lower extremities.? Of note he has had prior right-sided Cyanoacrelate ablation and left leg strippings.? He continues to have recurrent left lower extremity nonhealing ulcers.? He has multiple superficial varicosities that continue to be a source of pain and discomfort.?? 09/30/21 and 10/04/21 Pt was seen at [facility] with near syncope ? TIA. (He was not bridged for his colonoscopy performed on 10/03/21). 10/03/21 EGD AND COLON SHOWED: ESOPHAGUS:?Focal esophagitis at GEJ with a single 2 cms linera erosion. No stricture or Harvey's. STOMACH: Gastritis DUODENUM: Few erosions in duodenal bulb Colonoscopy Findings:? Five small to medium sized polyps removed Moderate diverticulosis seen in the sigmoid colon Moderate hemorrhoids on retroflexed exam. Plan:? Start Omeprazole 20 mg daily for esophagitis. Patient has an appointment on 10/20/21 in the GI Clinic with Artur Francisco M.D.. Repeat Colonoscopy interval based on path results - in 1-2 years if polyps are adenomatous and 10 years if polyps are hyperplastic (needs adult colonoscope for future colonoscopies). TODAY'S VISIT: Patient cc: some swallowing problems with sticky food, and also funny Noted weakness and dizziness after his last EGD/Colon and lasted for a long time. Blood sugars have been better controlled. Noted an episode of choking while eating australian rice Can note some dizziness 1-2 hours after eating (dizzy spells have improved in the past) PAST VISIT: Several ER visits in [facility] with elevated BP and dizzy spells BP has been stable on Lisinopril and atenolol and dizziness has improved. Notes intermittent LUQ discomfort. Scheduled to see a Zena next month. Planning to move to [place] in 2 weeks New apartment is across the [address] from a park and plans to be more active and try to loose weight. May consider Bariatric surgery in the future. (His brother had bariatric surgery recently) EGD and colonoscopy results were reviewed with the patient. Noted some dizziness 2-3 weeks after EGD and Colonoscopy. Seen by a Neurologist. Has an Event Monitor in place till Sunday. Arms felt numb. Notes LUQ discomfort after he eats steak. Unable to chew well due to dentures. One episode of food impaction while eating a pizza and resolved after regurgitation of food. Patient denies symptoms of heartburn, nausea, vomiting, change in appetite. 2019 lost wt to 270 lbs and regained since COVID pandemic..? Denies recent change in bowel habits, constipation, diarrhea, black stools or rectal bleeding. Patient denies major cardiac or pulmonary problems. Notes shortness of breath on mild activity. Uses a CPAP machine for sleep apnea Denies problems with anesthesia in the past. 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 with 3 children. 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 Patient denies known family history of colon polyps, colon cancer or other GI malignancy [facility] Medical History Vitamin B 12 deficiency Dizziness Annual physical exam Skin abnormalities STD (male) DM type 2 (diabetes mellitus, type 2) Venous (peripheral) insufficiency Obesity Hyperlipidemia PVD (peripheral vascular disease) Hypertension DVT (deep venous thrombosis) Factor 5 Leiden mutation, heterozygous SOB (shortness of breath) Surgical History Hx of esophagogastroduodenoscopy Hx of colonoscopy H/O vascular surgery Family History Father CVD (cardiovascular disease) Mother CVD (cardiovascular disease) Daughter No problems noted. Son No problems noted. Social History Housing: House Are you a primary landcare facilitator to a significant other at home: No Do you presently have visiting nurse or other home services: No Unable to assess alcohol history related to: Unknown Patient Tobacco Use Status: Former Tobacco user Tobacco use type: Cigarette e-Cigarette/Vaping Use: Never Used Current occupational status: employed Cognitive needs: No Hearing needs: No Vision needs: No Review of Systems Const All systems reviewed & are unremarkable except as noted in HPI and below Reports no additional complaints Eyes Reports no additional complaints ENT Reports no additional complaints and Reports Normal hearing present Card Reports no additional complaints Resp Reports no additional complaints GI Reports no additional complaints Reports no additional complaints Neuro Reports Normal hearing present and Denies Abnormal speech present Physical Exam Vital Signs: Last Vital Signs Pulse 71 01/21/24 07:44 BP 118/75 01/21/24 07:44 BMI result Body Mass Index 42.8 Const General: healthy appearing and no acute distress Nutritional Appearance: obese Orientation/consciousness: patient oriented x3 Limitations: no limitations HEENT Head: Yes normal to inspection Ears: hearing grossly normal bilaterally Eyes Sclerae: sclerae normal Pupils: Equal, round and reactive pupils present Neck Neck: Yes normal visual inspection Chest Chest palpation & inspection: normal inspection of the chest Resp Effort & Inspection: normal respiratory effort Auscultation: clear to auscultation bilaterally Cardio Palpation: normal PMI Rate: regular rate Rhythm: regular rhythm Heart sounds: S1 normal heart sound present, S2 normal heart sound present and no murmurs GI Inspection: Yes obesity Palpation (GI): Soft to palpation, nontender and No hepatosplenomegaly present Auscultation: normal bowel sounds Rectal Exam - Male: Yes deferred Skin General skin exam: no rashes or lesions noted Neuro General: patient oriented x3, gait normal and moves all extremities Cranial nerves: Yes Equal, round and reactive pupils present and Yes Normal hearing present Speech: No Abnormal speech present Psych Appearance: grossly normal Mental Status: mental status grossly normal Assessment & Plan Assessment & Plan (1) Colon cancer screening: Comment: Sep, 2021 colonoscopy showed diverticulosis and hemorrhoids.? Five small to medium-sized polyps were removed (2 TA and 3 hyperplastic polyps).? Repeat colonoscopy is advised in 2 years (due 09/2023) Code(s): Z12.11 - Encounter for screening for malignant neoplasm of colon Category: Medical (2) Dysphagia, pharyngoesophageal phase: Code(s): R13.14 - Dysphagia, pharyngoesophageal phase Category: Medical (3) Vitamin B 12 deficiency: Code(s): E53.8 - Deficiency of other specified B group vitamins Category: Medical Plan 53 YM with type 2 diabetes, hyperlipidemia, and hypertension seen for FU of colon polyps. Notes LUQ discomfort after he eats steak.? Unable to chew well due to dentures. One episode of food impaction while eating a pizza and resolved after regurgitation of food. 09/2021 upper endoscopy (dysphagia and screen for Harvey's) showed a single healing erosion in the distal esophagus and no stricture Prescribed Omeprazole and switched to pepcid due to patient's concern for side effects related to long-term omeprazole use. Has not been taking Pepcid and is willing to resume taking it - prescription sent Same day colonoscopy showed diverticulosis and hemorrhoids.? Five small to medium-sized polyps were removed (2 TA and 3 hyperplastic polyps).? Repeat colonoscopy is advised in 2 years (due 09/2023) Pt was seen at [facility] day after colonoscopy with ?episode of TIA. Pt was advised to be bridged with Lovenox for future colonoscopies. 01/21/24 Patient cc: some swallowing problems with sticky food, and also funny Noted weakness and dizziness after his last EGD/Colon and lasted for a long time. Blood sugars have been better controlled. Noted an episode of choking while eating australian rice Can note some dizziness 1-2 hours after eating (dizzy spells have improved in the past) Patient was advised to schedule a barium swallow for evaluation of dysphagia and colonoscopy for follow-up of colon polyps - scheduled 07/18/24 FU appt in 6 months Orders: Orders [place] barium swallow 01/21/24 R13.14 - Dysphagia, pharyngoesophageal phase Medications: New polyethylene glycol 3350 (Miralax) Mix Miralax with 64 oz(8 cups) of Crystal light. Take 2 tablets of Dulcolax qt 12 pm. Wait to have your 1st bowel movement, then begin drinking Miralax. Drink a glass of Miralax every 10-15 minutes until you are finished. You will drink at least another 4 cups of clear liquid of your choice over the next 2 hours. Please drink as many clear liquids as possible You may have clear liquids up to four hours before your procedure 17 grams PO DAILY 238 grams 0RF 1 day bisacodyl (Dulcolax (bisacodyl)) Take 2 tablets at 12 pm daily starting 2 days before colonoscopy appointment 10 mg (2 x 5 mg) PO ONCE 4 tabs 0RF 2 days Coding Level of Care Code Est Pt Level 4 (16869) Diagnoses Colon cancer screening Z12.11 Dysphagia, pharyngoesophageal phase R13.14 Vitamin B 12 deficiency E53.8 Time Spent (min) 29
[2024-01-21 07:44] VITALS: BP 118/75; PULSE 71; BMI 42.8
== END 2024-01-21 08:09 | disposition home or self-care (01) ==
PROVIDERS: PCP Internal Medicine; Visit Provider Internal Medicine Gastroenterology
DX: R13.14 Dysphagia, pharyngoesophageal phase (principal); Z01.818 Encounter for other preprocedural examination; Z12.11 Encounter for screening for malignant neoplasm of colon; E53.8 Deficiency of other specified B group vitamins
CPT/HCPCS: 99214

== ENCOUNTER → 2024-01-21 07:21 | Outpatient (BNVA) | payer MEDICARE, MEDICAID, SELFPAY | PROVIDERS: PCP Internal Medicine; Visit Provider Internal Medicine Gastroenterology | DX: Z01.818 Encounter for other preprocedural examination (principal); K21.9 Gastro-esophageal reflux disease without esophagitis; R13.14 Dysphagia, pharyngoesophageal phase; E53.8 Deficiency of other specified B group vitamins | CPT/HCPCS: 99212 ==

== ENCOUNTER 2024-01-28 09:47 | Outpatient (REF) | payer MEDICARE, MEDICAID, SELFPAY ==
[2024-01-28 12:13] LABS: MANUAL DIFF FLAG NO
[2024-01-28 12:24] LABS: Basophils Absolute Auto 0.1 X10*3/uL (0.0-0.2); Basophils Percent Auto 1.1 % (0-2); Eosinophils Absolute Auto 0.3 X10*3/uL (0.0-0.4); Eosinophils Percent Auto 3.6 % (0-4); Hemoglobin 15.4 g/dl (14.0-18.0); Imm Gran Abs Auto 0.04 X10*3/uL (0.00-0.03); Imm Gran Pct Auto 0.5 % (0.0-0.4); Lymphocytes Absolute Auto 1.8 X10*3/uL (1.2-4.9); Lymphocytes Percent Auto 20.3 % (20-40); Mean Corpuscular HGB Conc 33.5 g/dl (31.0-36.0); Mean Corpuscular Hemoglobin 30.9 pg (27.0-33.0); Mean Corpuscular Volume 92.4 fL (80.0-98.0); Mean Platelet Volume 9.8 fL (9.4-12.4); Monocytes Absolute Auto 0.5 X10*3/uL (0.1-1.2); Neutrophils Percent Auto 68.5 % (45-73); Platelet Count 249 X10*3/uL (160-400); Red Blood Count 4.98 X10*6/uL (4.60-5.80); Red Cell Distribution Width 12.9 % (11.0-16.0); White Blood Count 8.8 X10*3/uL (4.8-10.8)
[2024-01-28 12:41] LABS: Alanine Aminotransferase 25 U/L (0-40); Albumin Level 4.2 g/dL (3.5-5.0); Alkaline Phosphatase 52 U/L (39-117); Anion Gap 16 (12-20); Aspartate Amino Transferase 24 U/L (5-37); Bilirubin Total 0.5 mg/dL (0.0-1.0); Blood Urea Nitrogen 14 mg/dL (9-16); Calcium 9.4 mg/dL (8.4-10.2); Carbon Dioxide 26 mmol/L (22-29); Chloride 101 mmol/L (96-108); Cholesterol 131 mg/dL (<200); Estimated Glomerular Filt Rate > 60; Glucose Fasting 130 mg/dL (60-99); HDL Cholesterol 41 mg/dL (>40); LDL Cholesterol Calculated 62 mg/dL (<100); Potassium 4.9 mmol/L (3.3-5.1); Sodium 138 mmol/L (135-145); Total Protein 8.1 g/dL (6.5-8.0); Triglycerides 142 mg/dL (<150)
[2024-01-28 12:45] LABS: Estimated Average Glucose 148 mg/dL; Hemoglobin A1c % 6.8 % (<6.0)
[2024-01-28 13:09] LABS: Creatinine Urine 254.69 mg/dL; Microalbum/Creatinine Ratio Ur 6.2 ug/mg cr (<30)
== END 2024-01-28 09:48 | disposition home or self-care (01) ==
LOC: HO.HMGCLDS 09:47
PROVIDERS: PCP Internal Medicine; Visit Provider Internal Medicine
DX: E11.9 Type 2 diabetes mellitus without complications (principal); E78.5 Hyperlipidemia, unspecified; I10 Essential (primary) hypertension
CPT/HCPCS: 36415; 80053; 80061; 82043; 82570; 83036; 85025

== ENCOUNTER 2024-01-31 11:39 | Outpatient (AMB) | payer MEDICARE, MEDICAID, SELFPAY ==
--- NOTE | 2024-01-31 12:05 | MHC.PC.OV ---
Vital Signs 01/31/24 12:06 Height 5 ft 9 in Weight 289 lb BMI 42.7 BP 128/82 Blood Pressure Location Lt brachial Position Sitting Pulse 70 Pulse Source Pulse Oximeter Pulse Oximetry (%) 98 Oxygen Delivery Method Room Air Intake Visit Reasons: 3M F/U reschd from 01/30/24 Allergies A & D Allergy (Severe, Verified 01/31/24 12:07) anaphylaxis bacitracin [BACITRACIN] Allergy (Severe, Verified 01/31/24 12:07) SEIZURE , anaphylaxis Sulfa (Sulfonamide Antibiotics) Allergy (Mild, Verified 01/31/24 12:07) SWELLING adhesive tape Allergy (Verified 01/31/24 12:07) Rash dapagliflozin [From Farxiga] Adverse Reaction (Intermediate, Verified 01/31/24 12:07) Abdominal Pain [facility] Adverse Reaction (Intermediate, Verified 01/31/24 12:07) Diarrhea, vomiting lisinopril Adverse Reaction (Intermediate, Verified 01/31/24 12:07) Dizziness hydrochlorothiazide Adverse Reaction (Verified 01/31/24 12:07) weakness in his hands SSRI Adverse Reaction (Intermediate, Uncoded 10/31/23 13:17) DECREASE LIBIDO Medication List - Last Reconciled 01/31/24 by Esha Corbin MD atenolol 50 mg (2 x 25 mg) PO DAILY bisacodyl (Dulcolax (bisacodyl)) 10 mg (2 x 5 mg) PO ONCE 2 days blood sugar diagnostic ([employer] Ultra Test strips) test blood sugar once a day blood-glucose meter ([employer] Ultra2 Meter kit) As directed clobetasol 0.05% 1 appl topical BID CPAP (CPAP Machine/Device) auto PAP 6-20 cm with heated humidification with needed supplies diphenhydramine HCl (Benadryl) 50 mg (2 x 25 mg) PO Q6H PRN lancets ([employer] UltraSoft Lancets) TID lancets ([employer] Delica Lancets) test blood sugar daily lancing device with lancets ([employer] Delica Lancing Device kit) testing blood sugar once daily metformin ER 1,500 mg (2 x 750 mg) PO DAILY@1700 Mounjaro (tirzepatide) 5 mg (0.5 mL) subcut QWEEK NS polyethylene glycol 3350 (Miralax) 17 grams PO DAILY 1 day simvastatin 40 mg PO DAILY tirzepatide (Mounjaro) 2.5 mg (0.5 mL) subcut QWEEK 4 weeks warfarin 7.5 mg PO DAILY Tobacco use date assessed: 01/31/24 Dental Screening Dental Screen Date: 01/31/24 Did you have a dental visit in the last 12 months?: No Did you have a dental problem in the last 6 months where you did not have access to dental care?: No Was dental information given to patient?: Patient has dentist HPI 3M F/U reschd from 01/30/24 HPI Details Pt presents for f/u DM 2, HTN, hyperlipidemia obesity. He has been tolerating 2.5 mg of Mounjaro and lost 20 lb. Patient reports improved fasting blood glucose down to 120's [facility] Medical History Vitamin B 12 deficiency Dizziness Annual physical exam Skin abnormalities STD (male) DM type 2 (diabetes mellitus, type 2) Venous (peripheral) insufficiency Obesity Hyperlipidemia PVD (peripheral vascular disease) Hypertension DVT (deep venous thrombosis) Factor 5 Leiden mutation, heterozygous SOB (shortness of breath) Surgical History Hx of esophagogastroduodenoscopy Hx of colonoscopy H/O vascular surgery Family History Father CVD (cardiovascular disease) Mother CVD (cardiovascular disease) Daughter No problems noted. Son No problems noted. Social History Housing: House Are you a primary plant health care technician to a significant other at home: No Do you presently have visiting nurse or other home services: No Unable to assess alcohol history related to: Unknown Patient Tobacco Use Status: Former Tobacco user Tobacco use type: Cigarette e-Cigarette/Vaping Use: Never Used Current occupational status: employed Cognitive needs: No Hearing needs: No Vision needs: No Questionnaire Thrive Questionnaire Date Thrive assessed: 09/18/23 AUDIT C Alcohol Use Questionnaire (AUDIT-C) 1. How often do you have a drink containing alcohol?: Never 3. How often do you have six or more drinks on one occasion?: Never Total Score: 0 Score Reviewed/Action Taken: Yes ANISA-7 AMB Questionnaire ANISA-7 Date ANISA - 7 assessed: 09/18/23 Source: Developed by Drs. Marco Antonio Zhu, Ginger Freed, Se Bahena and colleagues, with an educational teresita from [employer]. Review of Systems Const All systems reviewed & are unremarkable except as noted in HPI and below ENT Reports no additional complaints Card Reports no additional complaints Resp Reports no additional complaints GI Reports no additional complaints Reports no additional complaints Physical exam (Primary Care) Vital Signs: Last Vital Signs Pulse 70 01/31/24 12:06 BP 128/82 01/31/24 12:06 Pulse Ox 98 01/31/24 12:06 Oxygen Delivery Method Room Air 01/31/24 12:06 BMI result Body Mass Index 42.7 Tobacco/Smoking Status: Tobacco use Status Tobacco use date assessed 01/31/24 01/31/24 12:08 Patient Tobacco Use Status Former Tobacco user 01/31/24 12:06 Tobacco use type Cigarette 01/31/24 12:06 e-Cigarette/Vaping Use Never Used 01/31/24 12:06 Thrive Assessment: Date of Thrive Assessment Date Thrive assessed 09/18/23 01/31/24 12:06 Const General: no acute distress HENMT Face and sinus: Yes normal facial exam Neck Neck: Yes supple Resp Effort & Inspection: normal respiratory effort Auscultation: clear to auscultation bilaterally Cardio Rhythm: regular rhythm Heart sounds: S1 normal heart sound present and S2 normal heart sound present GI Inspection: Yes normal to inspection Palpation (GI): Soft to palpation Assessment and Plan Assessment & Plan (1) Hypertension: Comment: Could not tolerate lisinopril causes dizziness Code(s): I10 - Essential (primary) hypertension Plan: Continue current medications (2) Hyperlipidemia: Code(s): E78.5 - Hyperlipidemia, unspecified Plan: Continue statin (3) DM type 2 (diabetes mellitus, type 2): Code(s): E11.9 - Type 2 diabetes mellitus without complications Plan: A1c is down to 6.8, increase Mounjaro 2 5 mg and continue metformin ADA diet increase exercise. Return in 3 months with a fasting labs before Orders: Orders Comprehensive [facility]. Panel Fast 3 Months E11.9 - Type 2 diabetes mellitus without complications, E78.5 - Hyperlipidemia, unspecified, I10 - Essential (primary) hypertension Complete Blood Count Auto Diff 3 Months E11.9 - Type 2 diabetes mellitus without complications, E78.5 - Hyperlipidemia, unspecified, I10 - Essential (primary) hypertension Microalbumin, Random (w Creat) 3 Months E11.9 - Type 2 diabetes mellitus without complications, E78.5 - Hyperlipidemia, unspecified, I10 - Essential (primary) hypertension Lipid Panel 3 Months E11.9 - Type 2 diabetes mellitus without complications, E78.5 - Hyperlipidemia, unspecified, I10 - Essential (primary) hypertension Hemoglobin A1c 3 Months E11.9 - Type 2 diabetes mellitus without complications, E78.5 - Hyperlipidemia, unspecified, I10 - Essential (primary) hypertension Medications: New Mounjaro (tirzepatide) 5 mg (0.5 mL) subcut QWEEK 6 mL 2RF NS Discontinued tirzepatide (Mounjaro) Discontinued Reason: Doctor's Order 2.5 mg (0.5 mL) subcut QWEEK 4 weeks 6 mL 1RF Coding Level of Care Code Est Pt Level 4 (96900) Diagnoses Hypertension I10 Hyperlipidemia E78.5 DM type 2 (diabetes mellitus, type 2) E11.9
[2024-01-31 12:06] VITALS: BP 128/82; PULSE 70; O2SAT 98; BMI 42.7
== END 2024-01-31 12:56 | disposition home or self-care (01) ==
LOC: HO.HMGC 11:39
PROVIDERS: PCP Internal Medicine; Visit Provider Internal Medicine
DX: I10 Essential (primary) hypertension (principal); E78.5 Hyperlipidemia, unspecified; E11.9 Type 2 diabetes mellitus without complications
CPT/HCPCS: 99214

== ENCOUNTER 2024-03-09 15:41 | Inpatient (IN) | payer MEDICARE, MEDICAID, SELFPAY ==
[2024-03-09] VITALS (7 sets, daily range): BP systolic 111–153; BP diastolic 51–85; PULSE 41–76; RESP 15–20; TEMP 36.1–36.7; O2SAT 97–100; BMI 42.7; BMI 43.1
--- NOTE | ~2024-03-09 | XR_ITS ---
EXAMINATION: XR CHEST CLINICAL INFORMATION: High degree atrioventricular block. COMPARISON: Chest radiograph dated to 09/30/2021. TECHNIQUE: Frontal view of the chest was obtained. The patient is mildly rotated. FINDINGS: No significant abnormality is noted involving the heart, lungs, mediastinum, bony thorax or soft tissues. An external pacemaker lead is noted. XR/XR chest 1V IMPRESSION: Unremarkable examination.
--- NOTE | 2024-03-09 15:45 | ECG_ITS ---
Test Reason : NURYS Blood Pressure : / mmHG Vent. Rate : 042 BPM Atrial Rate : 083 BPM P-R Int : 252 ms QRS Dur : 080 ms QT Int : 448 ms P-R-T Axes : 059 001 025 degrees QTc Int : 374 ms Sinus rhythm with 2nd degree A-V block with 2:1 A-V conduction Abnormal ECG When compared with ECG of 24-OCT-2021 03:49, Sinus rhythm is now with 2nd degree A-V block Vent. rate has decreased BY 22 BPM Referred By: Generic ED Physician Electronically Signed By:ALISON SEAY MD
--- NOTE | 2024-03-09 16:02 | ED.GENADULT ---
HPI - General Adult General Chief complaint: Arrhythmia/Palpitations Stated complaint: bradycardia Time Seen by Provider: 03/09/24 16:07 Related Data Previous Rx's ?Medication ?Instructions ?Recorded clobetasol 0.05 % topical cream 1 appl topical BID #45 grams 07/06/20 blood-glucose meter (Bee ResilientTouch #1 ea 06/02/21 Ultra2 Meter kit) lancing device with lancets kit #1 ea 06/03/21 ([employer] DelChalet Tech Lancing Device kit) diphenhydramine HCl 25 mg capsule 50 mg (2 x 25 mg) PO Q6H PRN 10/04/21 (Benadryl) allergic reaction #20 caps lancets (Bee ResilientTouch UltraSoft #100 ea 07/19/22 Lancets) lancets 33 gauge (Bee ResilientTouch Delica #100 ea 07/25/22 Lancets) CPAP (CPAP Machine/Device) #1 ea 08/24/22 blood sugar diagnostic (OneTouch #100 ea 02/08/23 Ultra Test strips) atenolol 25 mg tablet 50 mg (2 x 25 mg) PO DAILY #180 07/12/23 tabs simvastatin 40 mg tablet 40 mg PO DAILY #90 tabs 08/12/23 metformin 750 mg tablet,extended 1,500 mg (2 x 750 mg) PO 10/31/23 release 24 hr DAILY@1700 #180 tabs warfarin 7.5 mg tablet 7.5 mg PO DAILY #90 tabs 12/28/23 bisacodyl 5 mg tablet,delayed 10 mg (2 x 5 mg) PO ONCE 2 days #4 01/21/24 release (Dulcolax (bisacodyl)) tabs polyethylene glycol 3350 17 17 g PO DAILY 1 day #238 grams 01/21/24 gram/dose oral powder (Miralax) Mounjaro 5 mg/0.5 mL subcutaneous 5 mg (0.5 mL) subcut QWEEK #6 mL 01/31/24 pen injector (tirzepatide) Allergies Allergy/AdvReac Type Severity Reaction Status Date / Time A & D Allergy Severe anaphylaxis Verified 03/09/24 16:01 bacitracin [BACITRACIN] Allergy Severe Verified 03/09/24 16:01 SEIZURE , anaphylaxis Sulfa (Sulfonamide Allergy Mild SWELLING Verified 03/09/24 16:01 Antibiotics) adhesive tape Allergy Rash Verified 03/09/24 16:01 dapagliflozin [From Farxiga] AdvReac Intermediate Abdominal Verified 03/09/24 16:01 Pain dulaglutide [From Trulicity] AdvReac Intermediate Diarrhea, Verified 03/09/24 16:01 vomiting lisinopril AdvReac Intermediate Dizziness Verified 03/09/24 16:01 hydrochlorothiazide AdvReac weakness Verified 03/09/24 16:01 in his hands SSRI AdvReac Intermediate DECREASE Uncoded 10/31/23 13:17 LIBIDO PMFSH Past Medical History Medical History Vitamin B 12 deficiency Dizziness Annual physical exam Skin abnormalities STD (male) DM type 2 (diabetes mellitus, type 2) Venous (peripheral) insufficiency Obesity Hyperlipidemia PVD (peripheral vascular disease) Hypertension DVT (deep venous thrombosis) Factor 5 Leiden mutation, heterozygous SOB (shortness of breath) Surgical History Hx of esophagogastroduodenoscopy Hx of colonoscopy H/O vascular surgery Family History Family History Father CVD (cardiovascular disease) Mother CVD (cardiovascular disease) Daughter No problems noted. Son No problems noted. Social History Social History Housing: House Are you a primary landcare officer to a significant other at home: No Do you presently have visiting nurse or other home services: No Unable to assess alcohol history related to: Unknown Patient Tobacco Use Status: Former Tobacco user Tobacco use type: Cigarette e-Cigarette/Vaping Use: Never Used Advance Directives: No Advance Directives Information Provided: No Do you have a plan to hurt others: No Plan Current occupational status: employed Cognitive needs: No Hearing needs: No Vision needs: No Physical Exam ED Vital Signs: Vital Signs - 24 hr 03/09/24 15:54 03/09/24 16:52 Temperature 97.5 F Pulse Rate 41 L 47 L Respiratory Rate 18 Blood Pressure 153/70 H 111/51 L Pulse Oximetry 98 Oxygen Delivery Method Room Air BMI result Body Mass Index 42.7 Course Course Course Narrative: RME: done by Martínez Jeong. 53-year-old male history of diabetes and high blood pressure presents to ED for bradycardia. Patient states fatigue and lightheaded. Patient states also mild chest discomfort. EKG ordered shows second-degree block sinus rhythm. Patient to be brought back to the ED immediately. EKG labs ordered. Medical Decision Making Lab Data 03/09/24 16:17 03/09/24 16:17 Labs: Lab Results 03/09/24 Range/Units 16:17 WBC 8.1 (4.8-10.8) X10*3/uL RBC 4.76 (4.60-5.80) X10*6/uL Hgb 14.6 (14.0-18.0) g/dl Hct 42.9 (42.0-52.0) % MCV 90.1 (80.0-98.0) fL MCH 30.7 (27.0-33.0) pg MCHC 34.0 (31.0-36.0) g/dl RDW 12.8 (11.0-16.0) % Plt Count 232 (160-400) X10*3/uL MPV 9.6 (9.4-12.4) fL Immature Gran % (Auto) 0.5 H (0.0-0.4) % Neut % (Auto) 66.5 (45-73) % Lymph % (Auto) 25.1 (20-40) % [place] % (Auto) 5.8 (2-11) % Eos % (Auto) 1.4 (0-4) % Baso % (Auto) 0.7 (0-2) % Lymph # (Auto) 2.0 (1.2-4.9) X10*3/uL [place] # (Auto) 0.5 (0.1-1.2) X10*3/uL Eos # (Auto) 0.1 (0.0-0.4) X10*3/uL Baso # (Auto) 0.1 (0.0-0.2) X10*3/uL Abs Immat Gran (auto) 0.04 H (0.00-0.03) X10*3/uL Absolute Neuts (auto) 5.4 (2.0-8.3) x10*3/uL Absolute Nucleated RBC 0.000 (0.0-0.012) X10*3/uL Nucleated RBC % (auto) 0.0 (0.0-0.2) /100WBC PT 31.8 H (11.1-13.3) SEC INR 2.6 H (0.9-1.1) APTT 70.6 H* (26.0-36.8) SEC Sodium 137 (135-145) mmol/L Potassium 4.2 (3.3-5.1) mmol/L Chloride 104 (96-108) mmol/L Carbon Dioxide 24 (22-29) mmol/L Anion Gap 13 (12-20) BUN 12 (9-16) mg/dL Creatinine 1.32 (0.5-1.4) mg/dL Estim Creat Clear Calc 87.8 Estimated GFR 57 Random Glucose 147 H (60-115) mg/dL Calcium 9.5 (8.4-10.2) mg/dL Total Bilirubin 0.4 (0.0-1.0) mg/dL AST 21 (5-37) U/L ALT 23 (0-40) U/L Alkaline Phosphatase 49 (39-117) U/L Troponin I High Sens < 2.7 (<3.5-35.0) ng/L Total Protein 7.5 (6.5-8.0) g/dL Albumin 4.0 (3.5-5.0) g/dL Discharge Plan Discharge Clinical Impression: Heart block AV second degree Patient Disposition: Admitted As Inpatient Print Language: Welsh
--- NOTE | 2024-03-09 16:19 | ED_ITS ---
HPI - Arrhythmia/Palpitations General Chief Complaint: Arrhythmia/Palpitations Stated Complaint: bradycardia Time Seen by Provider: 03/09/24 16:07 History of Present Illness HPI narrative: Patient is a 53-year-old male presents today with having palpitation a little weak also having some chest pain. Over the last 2 days noted his heart rate to be slow. Patient does not go out in the [place]. Has no history of fever chills. Currently is on a beta-caroline. 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 Positive history of diabetes. No history of [place]. Positive history of high cholesterol. History of hypertension. Positive chest pain that is 1-2 minutes and then gone away. No leg swelling that is new. Patient has a history of DVT and is currently on Coumadin. Related Data Previous Rx's ?Medication ?Instructions ?Recorded clobetasol 0.05 % topical cream 1 appl topical BID #45 grams 07/06/20 blood-glucose meter (TelovationsTouch #1 ea 06/02/21 Ultra2 Meter kit) lancing device with lancets kit #1 ea 06/03/21 (Geofusionuch Delica Lancing Device kit) diphenhydramine HCl 25 mg capsule 50 mg (2 x 25 mg) PO Q6H PRN 10/04/21 (Benadryl) allergic reaction #20 caps lancets (TelovationsTouch UltraSoft #100 ea 07/19/22 Lancets) lancets 33 gauge (TelovationsTouch Delica #100 ea 07/25/22 Lancets) CPAP (CPAP Machine/Device) #1 ea 08/24/22 blood sugar diagnostic (OneTouch #100 ea 02/08/23 Ultra Test strips) atenolol 25 mg tablet 50 mg (2 x 25 mg) PO DAILY #180 07/12/23 tabs simvastatin 40 mg tablet 40 mg PO DAILY #90 tabs 08/12/23 metformin 750 mg tablet,extended 1,500 mg (2 x 750 mg) PO 10/31/23 release 24 hr DAILY@1700 #180 tabs warfarin 7.5 mg tablet 7.5 mg PO DAILY #90 tabs 12/28/23 bisacodyl 5 mg tablet,delayed 10 mg (2 x 5 mg) PO ONCE 2 days #4 01/21/24 release (Dulcolax (bisacodyl)) tabs polyethylene glycol 3350 17 17 g PO DAILY 1 day #238 grams 01/21/24 gram/dose oral powder (Miralax) Mounjaro 5 mg/0.5 mL subcutaneous 5 mg (0.5 mL) subcut QWEEK #6 mL 01/31/24 pen injector (tirzepatide) Allergies Allergy/AdvReac Type Severity Reaction Status Date / Time A & D Allergy Severe anaphylaxis Verified 03/09/24 16:01 bacitracin [BACITRACIN] Allergy Severe Verified 03/09/24 16:01 SEIZURE , anaphylaxis Sulfa (Sulfonamide Allergy Mild SWELLING Verified 03/09/24 16:01 Antibiotics) adhesive tape Allergy Rash Verified 03/09/24 16:01 dapagliflozin [From Farxiga] AdvReac Intermediate Abdominal Verified 03/09/24 16:01 Pain dulaglutide [From Trulicity] AdvReac Intermediate Diarrhea, Verified 03/09/24 16:01 vomiting lisinopril AdvReac Intermediate Dizziness Verified 03/09/24 16:01 hydrochlorothiazide AdvReac weakness Verified 03/09/24 16:01 in his hands SSRI AdvReac Intermediate DECREASE Uncoded 10/31/23 13:17 LIBIDO Review of Systems 2 Review of Systems: Positive palpitation positive generalized malaise Yes all other systems are reviewed and are negative PMFSH Past Medical History Attestation statement: The following information was validated with the patient. Medical History Vitamin B 12 deficiency Dizziness Annual physical exam Skin abnormalities STD (male) DM type 2 (diabetes mellitus, type 2) Venous (peripheral) insufficiency Obesity Hyperlipidemia PVD (peripheral vascular disease) Hypertension DVT (deep venous thrombosis) Factor 5 Leiden mutation, heterozygous SOB (shortness of breath) Surgical History Hx of esophagogastroduodenoscopy Hx of colonoscopy H/O vascular surgery Family History Family History Father CVD (cardiovascular disease) Mother CVD (cardiovascular disease) Daughter No problems noted. Son No problems noted. Social History Social History Housing: House Are you a primary healthcare manager to a significant other at home: No Do you presently have visiting nurse or other home services: No Unable to assess alcohol history related to: Unknown Patient Tobacco Use Status: Former Tobacco user Tobacco use type: Cigarette e-Cigarette/Vaping Use: Never Used Advance Directives: No Advance Directives Information Provided: No Do you have a plan to hurt others: No Plan Current occupational status: employed Cognitive needs: No Hearing needs: No Vision needs: No Physical Exam 2 Vital Signs: Vital Signs: Last Vital Signs Temp 97.5 F 03/09/24 15:54 Pulse 47 L 03/09/24 16:52 Resp 18 03/09/24 15:54 BP 111/51 L 03/09/24 16:52 Pulse Ox 98 03/09/24 15:54 O2 Del Method Room Air 03/09/24 15:54 BMI result Body Mass Index 42.7 Appearance: Alert. Oriented X3. No acute distress. Eyes: Pupils equal, round and reactive to light. ENT: Pharynx normal. Neck: Normal inspection. Neck supple. No lymph nodes noted. No crepitus CVS: Positive bradycardia. Seems regular. Respiratory: No respiratory distress. Breath sounds normal. No Wheezing. No rales Abdomen: Soft and nontender. No rigidity. No distention. good BS x4 Skin: Skin warm and dry. Normal skin color. Normal skin turgor. Extremities: No lower extremity edema. Neurovascular intact to all extremities. No Lacerations. No Rash Neuro: Oriented X 3. No motor deficit. No sensory deficit. Moving all extermities. No slurred speech Medical Decision Making Medical Decision Making [facility] Narrative: Positive generalized malaise weakness. Patient's sugar is 200 there is no evidence for hypoglycemia. Monitor shows a heart rate of 40. An EKG was done. It shows second-degree heart block type 2. Patient's Eliquis was placed. Patient's creatinine is normal. Cardiology contacted. Will take patient for possible pacemaker tomorrow. Hospitalist contacted. Consulting on the case. In stable condition. 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 03/09/24 16:17 03/09/24 16:17 Labs: Lab Results 03/09/24 Range/Units 16:17 WBC 8.1 (4.8-10.8) X10*3/uL RBC 4.76 (4.60-5.80) X10*6/uL Hgb 14.6 (14.0-18.0) g/dl Hct 42.9 (42.0-52.0) % MCV 90.1 (80.0-98.0) fL MCH 30.7 (27.0-33.0) pg MCHC 34.0 (31.0-36.0) g/dl RDW 12.8 (11.0-16.0) % Plt Count 232 (160-400) X10*3/uL MPV 9.6 (9.4-12.4) fL Immature Gran % (Auto) 0.5 H (0.0-0.4) % Neut % (Auto) 66.5 (45-73) % Lymph % (Auto) 25.1 (20-40) % [place] % (Auto) 5.8 (2-11) % Eos % (Auto) 1.4 (0-4) % Baso % (Auto) 0.7 (0-2) % Lymph # (Auto) 2.0 (1.2-4.9) X10*3/uL [place] # (Auto) 0.5 (0.1-1.2) X10*3/uL Eos # (Auto) 0.1 (0.0-0.4) X10*3/uL Baso # (Auto) 0.1 (0.0-0.2) X10*3/uL Abs Immat Gran (auto) 0.04 H (0.00-0.03) X10*3/uL Absolute Neuts (auto) 5.4 (2.0-8.3) x10*3/uL Absolute Nucleated RBC 0.000 (0.0-0.012) X10*3/uL Nucleated RBC % (auto) 0.0 (0.0-0.2) /100WBC Sodium 137 (135-145) mmol/L Potassium 4.2 (3.3-5.1) mmol/L Chloride 104 (96-108) mmol/L Carbon Dioxide 24 (22-29) mmol/L Anion Gap 13 (12-20) BUN 12 (9-16) mg/dL Creatinine 1.32 (0.5-1.4) mg/dL Estim Creat Clear Calc 87.8 Estimated GFR 57 Random Glucose 147 H (60-115) mg/dL Calcium 9.5 (8.4-10.2) mg/dL Total Bilirubin 0.4 (0.0-1.0) mg/dL AST 21 (5-37) U/L ALT 23 (0-40) U/L Alkaline Phosphatase 49 (39-117) U/L Troponin I High Sens < 2.7 (<3.5-35.0) ng/L Total Protein 7.5 (6.5-8.0) g/dL Albumin 4.0 (3.5-5.0) g/dL Independent Interpretation I performed an independent interpretation of an: EKG (Showed a sinus pattern heart rate is approximately 40 there is a type 2 Mobitz 2 heart block noted. No acute ST segment elevation noted) External Record Review External record reviewed: Office record Chronic Conditions Patient?s care impacted by: Diabetes and Hypertension Critical Care Time Critical Care Time Critical Care Time: Yes Total Critical Care Time: 40 Attestation: I have personally provided 40 minutes of critical care time exclusive of time spent on separately billable procedures. ?Time includes review of lab data, radiology results, discussion with consultants, and monitoring for potential decompensation. ?Interventions were performed as documented above Discharge Plan Discharge Clinical Impression: Heart block AV second degree Patient Disposition: Admitted As Inpatient Prescriptions: No Action clobetasol 0.05 % cream 1 appl topical BID Qty: 45 3RF Rx Instructions: apply to the affected area twice a day for 10 days (DME) blood-glucose meter [OneTouch Ultra2 Meter] Kit See Rx Instructions .Route Qty: 1 0RF Rx Instructions: As directed (DME) lancing device with lancets [OneTouch Delica Lanc Device] Kit See Rx Instructions .Route Qty: 1 0RF Rx Instructions: testing blood sugar once daily (DME) lancets [OneTouch Delica Lancets] 33 gauge misc See Rx Instructions .Route Qty: 100 3RF Rx Instructions: test blood sugar daily (DME) CPAP Machine/Device Device See Rx Instructions .Route Qty: 1 0RF Rx Instructions: auto PAP 6-20 cm with heated humidification with needed supplies (DME) OneTouch Ultra Test Strip See Rx Instructions .Route Qty: 100 3RF Rx Instructions: test blood sugar once a day atenolol 25 mg tablet 50 mg PO DAILY Qty: 180 2RF simvastatin 40 mg tablet 40 mg PO DAILY Qty: 90 3RF warfarin 7.5 mg tablet 7.5 mg PO DAILY Qty: 90 1RF diphenhydramine HCl [Benadryl] 25 mg capsule 50 mg PO Q6H PRN (Reason: allergic reaction) Qty: 20 0RF (DME) lancets [OneTouch UltraSoft Lancets] Misc See Rx Instructions .ROUTE .MEDSUPPLY Qty: 100 6RF Rx Instructions: TID metformin 750 mg tablet extended release 24 hr 1,500 mg PO DAILY@1700 Qty: 180 3RF Mounjaro 5 mg/0.5 mL pen injector 5 mg subcut QWEEK Qty: 6 2RF bisacodyl [Dulcolax (bisacodyl)] 5 mg tablet,delayed release (DR/EC) 10 mg PO ONCE 2 Days Qty: 4 0RF Rx Instructions: Take 2 tablets at 12 pm daily starting 2 days before colonoscopy appointment polyethylene glycol 3350 [Miralax] 17 gram/dose powder 17 g PO DAILY 1 Days Qty: 238 0RF Rx Instructions: Mix Miralax with 64 oz(8 cups) of Crystal light. Take 2 tablets of Dulcolax qt 12 pm. Wait to have your 1st bowel movement, then begin drinking Miralax. Drink a glass of Miralax every 10-15 minutes until you are finished. You will drink at least another 4 cups of clear liquid of your choice over the next 2 hours. Please drink as many clear liquids as possible You may have clear liquids up to four hours before your procedure Print Language: Georgian
[2024-03-09 16:23] LABS: MANUAL DIFF FLAG NO
[2024-03-09 16:27] LABS: Basophils Absolute Auto 0.1 X10*3/uL (0.0-0.2); Basophils Percent Auto 0.7 % (0-2); Eosinophils Absolute Auto 0.1 X10*3/uL (0.0-0.4); Eosinophils Percent Auto 1.4 % (0-4); Hematocrit 42.9 % (42.0-52.0); Hemoglobin 14.6 g/dl (14.0-18.0); Imm Gran Abs Auto 0.04 X10*3/uL (0.00-0.03); Imm Gran Pct Auto 0.5 % (0.0-0.4); Lymphocytes Percent Auto 25.1 % (20-40); Mean Corpuscular Hemoglobin 30.7 pg (27.0-33.0); Mean Corpuscular Volume 90.1 fL (80.0-98.0); Mean Platelet Volume 9.6 fL (9.4-12.4); Monocytes Absolute Auto 0.5 X10*3/uL (0.1-1.2); Monocytes Percent Auto 5.8 % (2-11); Neutrophils Absolute Auto 5.4 x10*3/uL (2.0-8.3); Neutrophils Percent Auto 66.5 % (45-73); Platelet Count 232 X10*3/uL (160-400); Red Blood Count 4.76 X10*6/uL (4.60-5.80); Red Cell Distribution Width 12.8 % (11.0-16.0); White Blood Count 8.1 X10*3/uL (4.8-10.8)
[2024-03-09 16:43] LABS: Alanine Aminotransferase 23 U/L (0-40); Alkaline Phosphatase 49 U/L (39-117); Anion Gap 13 (12-20); Aspartate Amino Transferase 21 U/L (5-37); Bilirubin Total 0.4 mg/dL (0.0-1.0); Blood Urea Nitrogen 12 mg/dL (9-16); Calcium 9.5 mg/dL (8.4-10.2); Carbon Dioxide 24 mmol/L (22-29); Chloride 104 mmol/L (96-108); Creatinine Clr Calc Pharmacy 87.8; Estimated Glomerular Filt Rate 57; Glucose Random 147 mg/dL (60-115); Potassium 4.2 mmol/L (3.3-5.1); Sodium 137 mmol/L (135-145); Total Protein 7.5 g/dL (6.5-8.0)
[2024-03-09 16:44] LABS: INTERNATIONAL NORM RATIO 2.6 (0.9-1.1); Prothrombin Time 31.8 SEC (11.1-13.3)
[2024-03-09 16:52] LABS: Troponin-I High Sensitivity < 2.7 ng/L (<3.5-35.0)
[2024-03-09 17:05] LABS: Partial Thromboplastin Time 70.6 SEC (26.0-36.8)
--- NOTE | 2024-03-09 17:34 | P.HPHOSP_ITS ---
History of Present Illness Date of Service: 03/09/24 Chief Complaint: weakness 53-year-old male with a history of hypertension type 2 diabetes and hypercholesterolemia presents with approximately 3-4 days of overall weakness and what he stated was a slow heart rate. He has had over the last several weeks he has had periods of time where he felt very weak and sleepy but they were self-limited and he was not concerned. The symptoms have gotten worse over the time. He continued to take all his meds including atenolol. He presented to the emergency room and found to be in high-grade AV block. Review of Systems 2 Review of Systems: Denies chest pain Denies shortness of breath Denies nausea vomiting diarrhea Denies fever chills PMFSH Medical History Vitamin B 12 deficiency Dizziness Annual physical exam Skin abnormalities STD (male) DM type 2 (diabetes mellitus, type 2) Venous (peripheral) insufficiency Obesity Hyperlipidemia PVD (peripheral vascular disease) Hypertension DVT (deep venous thrombosis) Factor 5 Leiden mutation, heterozygous SOB (shortness of breath) Family History Father CVD (cardiovascular disease) Mother CVD (cardiovascular disease) Daughter No problems noted. Son No problems noted. Surgical History Hx of esophagogastroduodenoscopy Hx of colonoscopy H/O vascular surgery Social History Housing: House Are you a primary child care group leader to a significant other at home: No Do you presently have visiting nurse or other home services: No Unable to assess alcohol history related to: Unknown Patient Tobacco Use Status: Former Tobacco user Tobacco use type: Cigarette Smoked in Last 30 Days: No e-Cigarette/Vaping Use: Never Used Use of substances other than those prescribed or required for medical reasons: No Advance Directives: No Advance Directives Information Provided: No Do you have a plan to hurt others: No Plan Current occupational status: employed Cognitive needs: No Hearing needs: No Vision needs: No Meds Allergies Allergy/AdvReac Type Severity Reaction Status Date / Time A & D Allergy Severe anaphylaxis Verified 03/09/24 16:01 bacitracin [BACITRACIN] Allergy Severe Verified 03/09/24 16:01 SEIZURE , anaphylaxis Sulfa (Sulfonamide Allergy Mild SWELLING Verified 03/09/24 16:01 Antibiotics) adhesive tape Allergy Rash Verified 03/09/24 16:01 dapagliflozin [From Farxiga] AdvReac Intermediate Abdominal Verified 03/09/24 16:01 Pain dulaglutide [From [facility] [address] [facility]] AdvReac Intermediate Diarrhea, Verified 03/09/24 16:01 vomiting lisinopril AdvReac Intermediate Dizziness Verified 03/09/24 16:01 hydrochlorothiazide AdvReac weakness Verified 03/09/24 16:01 in his hands SSRI AdvReac Intermediate DECREASE Uncoded 10/31/23 13:17 LIBIDO Active Medications: Current Medications Acetaminophen (Acetaminophen 325 Mg Tablet) 650 mg PO Q6H PRN PRN Reason: Pain, Mild (Pain Scale 1-3), fever or headache Calcium Carbonate (Calcium Carbonate 750 Mg Tab.Chew) 750 mg PO Q4H PRN PRN Reason: Heartburn Enoxaparin Sodium (Enoxaparin Sodium 150 Mg/Ml Syringe) 135 mg 1 mg/kg (135 mg) SUBCUT ONCE ONE Stop: 03/09/24 17:27 Sodium Chloride (Ns) 1,000 mls @ 100 mls/hr IVCONT .Q10H MELISSA Magnesium Hydroxide (Milk Of Magnesia 30 Ml Oral.Susp) 30 ml PO DAILY PRN PRN Reason: Constipation Melatonin (Melatonin 3 Mg Tablet) 6 mg PO BEDTIME PRN PRN Reason: Insomnia Sodium Chloride (0.9 % Sodium Chloride Flush 3 Ml Syringe) 3 ml IVFLUSH QSHIFT MELISSA Home Medications ?Medication ?Instructions ?Recorded ?Confirmed ?Last Taken ?Type atenolol 25 mg tablet 25 mg PO DAILY 03/09/24 03/09/24 03/09/24 09:00 History cholecalciferol (vitamin D3) 25 25 mcg PO DAILY 03/09/24 03/09/24 03/09/24 09:00 History mcg (1,000 unit) capsule (Vitamin D3) metformin 750 mg tablet,extended 1,500 mg PO DAILY 03/09/24 03/09/24 03/09/24 15:00 History release 24 hr mineral oil-isopropyl myristat 1 appl topical DAILY 03/09/24 03/09/24 Unknown History lotion tirzepatide 5 mg/0.5 mL 5 mg subcut SA 03/09/24 03/09/24 Unknown History subcutaneous pen injector (Christel) Physical Exam 2 Vital Signs and Narrative: Vital Signs: Last Vital Signs Temp 97.5 F 03/09/24 15:54 Pulse 47 L 03/09/24 16:52 Resp 18 03/09/24 15:54 BP 111/51 L 03/09/24 16:52 Pulse Ox 98 03/09/24 15:54 O2 Del Method Room Air 03/09/24 15:54 BMI result Body Mass Index 42.7 Const: Other: Awake alert no acute distress Resp: Other: Clear to auscultation bilaterally no rales rhonchi or wheezes Cardio: Other: No S4; positive S1-S2; no S3 murmurs rubs or gallops GI: Other: Obese; soft nontender normoactive bowel sounds all quadrants Neuro: Other: Cranial nerves 2-12 grossly intact as tested. Motor is 5/5 all extremities. Sensation is intact. Cognition appropriate. Gait stable Extrem: Other: Bilateral lower extremity edema Results Labs 03/09/24 16:17 03/09/24 16:17 Labs: Laboratory Results - last 24 hr 03/09/24 16:17 MCV 90.1 MCH 30.7 MCHC 34.0 RDW 12.8 Plt Count 232 MPV 9.6 Immature Gran % (Auto) 0.5 H Neut % (Auto) 66.5 Lymph % (Auto) 25.1 Cross % (Auto) 5.8 Eos % (Auto) 1.4 Baso % (Auto) 0.7 Lymph # (Auto) 2.0 Cross # (Auto) 0.5 Eos # (Auto) 0.1 Baso # (Auto) 0.1 Abs Immat Gran (auto) 0.04 H Absolute Neuts (auto) 5.4 Absolute Nucleated RBC 0.000 Nucleated RBC % (auto) 0.0 PT 31.8 H INR 2.6 H APTT 70.6 H* Anion Gap 13 Estim Creat Clear Calc 87.8 Estimated GFR 57 Random Glucose 147 H Calcium 9.5 Total Bilirubin 0.4 AST 21 ALT 23 Alkaline Phosphatase 49 Troponin I High Sens < 2.7 Total Protein 7.5 Albumin 4.0 Assessment and Plan (1) Heart block AV second degree: Status: Acute (2) Factor 5 Leiden mutation, heterozygous: Status: Acute (3) Hypertension: Qualifiers: Hypertension type: primary hypertension Qualified Code(s): I10 - Essential (primary) hypertension Status: Acute (4) DM type 2 (diabetes mellitus, type 2): Qualifiers: Diabetes mellitus extermination inspector insulin use: without alf use Diabetes mellitus complication status: without complication Qualified Code(s): E11.9 - Type 2 diabetes mellitus without complications Status: Acute Plan 53-year-old male with past history of factor 5 Leiden mutation, hypertension, diabetes type 2 presents with general weakness worsening over the past several weeks. States today he felt weak to the point of passing out. Presented to ER where EKG demonstrate a high-degree AV block. Discussed with Cardiology. Admit to telemetry 1. High-grade AV block -admit to telemetry; pacer patches on -hold atenolol -NPO after midnight. .. Question pacer in a.m. -discussed with cardiology; consult placed 2. Factor 5 Leiden mutation, heterozygous -discussed with cardiology; will hold patient's Coumadin and avoid Lovenox bridge. No need to reverse with vitamin K per Cardiology -resume Coumadin with Lovenox bridge when appropriate 3. Diabetes type II -acceptable control on current therapies -lispro correctional scale -continued outpatient therapies and adjust as indicated 4. Hypertension -acceptable control on current therapies -we will hold antihypertensive and follow clinically -add back therapies as appropriate Full code Coumadin Patient will require 2 midnights going forward of inpatient stay to monitor high-grade AV block with ultimate specialist consultation and pacemaker placement. This can not be achieved a lesser acute setting Quality Stroke Does the patient have a stroke diagnosis?: No VTE Prior VTE?: No VTE Risk Level:: Medical - moderate - high VTE Device Contraindication: Treatment Not Indicated VTE Drug Contraindication: N/A - Med Ordered
[2024-03-09 17:37] LABS: Appearance Urine Clear; Color Urine Yellow; Glucose Urine UA Negative (Negative); Leukocyte Esterase Urine Negative (Negative); Nitrite Urine Negative (Negative); Urine Blood Negative (Negative); Urine Ketones Negative (Negative); Urine Protein Negative (Neg-Trace)
--- NOTE | 2024-03-09 17:41 | PHA.MEDREC ---
Addendum entered by Jonathan Best [facility] 03/09/24 17:49: med rec double checked by [facility] Original Note: Pharmacy Consult ? Medication Reconciliation Pharmacy has completed the medication reconciliation. spoke with patient and Anuradha to confirm medications. They had a list from home. His Mounjaro is on Saturdays but he did not receive it today. He confirmed his warfarin dose of 7.5 mg daily. His rx for atenolol says 25mg - 2 tablets daily but patient states he takes 1 tablet daily.
[2024-03-09] MEDS: 0.9 % Sodium Chloride 1,000 ML 100 ML IVCONT ×2 (17:49→23:29)
[2024-03-09 17:51] LABS: Amphetamine Screen Urine Not Detected (Not Detect); Barbiturates, Urine Not Detected (Not Detect); Benzodiazepines Screen Urine Not Detected (Not Detect); Buprenorphine Scr Not Detected (Not Detect); Cannabinoid Screen Urine Not Detected (Not Detect); Cocaine Screen Urine Not Detected (Not Detect); Fentanyl, urine Not Detected (Not Detect); Methadone Screen, Urine Not Detected (Not Detect); Opiate Screen Urine Not Detected (Not Detect); Oxycodone Screen Urine Not Detected (Not Detect); Phencyclidine Screen Urine Not Detected (Not Detect)
[2024-03-09 18:51] LABS: Hematocrit 44.3 % (42.0-52.0); Mean Corpuscular HGB Conc 33.9 g/dl (31.0-36.0); Mean Corpuscular Hemoglobin 30.7 pg (27.0-33.0); Mean Corpuscular Volume 90.6 fL (80.0-98.0); Mean Platelet Volume 9.6 fL (9.4-12.4); Platelet Count 234 X10*3/uL (160-400); Red Blood Count 4.89 X10*6/uL (4.60-5.80); Red Cell Distribution Width 12.9 % (11.0-16.0); White Blood Count 7.5 X10*3/uL (4.8-10.8)
[2024-03-09 19:01] LABS: INTERNATIONAL NORM RATIO 2.6 (0.9-1.1); Prothrombin Time 31.8 SEC (11.1-13.3)
[2024-03-09 19:08] LABS: Alanine Aminotransferase 23 U/L (0-40); Alkaline Phosphatase 47 U/L (39-117); Anion Gap 13 (12-20); Aspartate Amino Transferase 19 U/L (5-37); Bilirubin Total 0.4 mg/dL (0.0-1.0); Blood Urea Nitrogen 12 mg/dL (9-16); Calcium 9.7 mg/dL (8.4-10.2); Carbon Dioxide 27 mmol/L (22-29); Chloride 103 mmol/L (96-108); Creatinine Clr Calc Pharmacy 95.8; Estimated Glomerular Filt Rate > 60; Glucose Fasting 101 mg/dL (60-99); Potassium 4.1 mmol/L (3.3-5.1); Sodium 139 mmol/L (135-145); Total Protein 7.5 g/dL (6.5-8.0)
[2024-03-09 19:43] LABS: Partial Thromboplastin Time 65.6 SEC (26.0-36.8)
--- NOTE | 2024-03-09 22:01 | PC.NURSE ---
patient admitted via stretcher from ED around 20:45. Oriented to room, call patel, television, hospital policies. Patient S/O brought recliner as she plans to stay the night. Respiratory called for CPAP for sleep apnea per patient request. patient assessed. hospital monitor applied and working (on). patient in 2nd degree AV block with bradycardia at this time. 30-50bpm. pacer pads in place on patient- full code. patient denies pain, endorses intermittent SOB with exertion and generalized weakness that patient has found to be increasing. Abdomen is large/obese, unable to assess for bladder distention, non-tender. hypoactive bowel sounds, last BM 03/08/2024. patient voiding without difficulty. call patel in reach. bed alarm on. safety and comfort maintained.
--- NOTE | 2024-03-10 | CA_ITS ---
Acquisition Time: 2024-03-10 10:39:45 Total Exercise Time: 00:05:00 Test Indications: AV BLOCK Medications: SEE H Protocol: SHANNON Max HR: 153 BPM 91% of Pred: 168 BPM Max BP: 170/090 mmHG Max Work Load: 7.0 METS Exercise stress test exercise 5 min of Shannon protocol achieving 98% MPHR, with moderate SOB, no chest discomfort,with isolated PACs and PVCs, with HTN response to exercise (max BP 170/90), with Type 1 AV block and no ischemic changes. Reviewed with Dr. Herrmann. Referred By: Dieter Gilbert Overread By: Arleth Lagos
[2024-03-10 00:55] VITALS: PULSE 61; RESP 20; O2SAT 97
[2024-03-10 03:34] VITALS: BP 112/53; PULSE 48; RESP 18; TEMP 36.7; O2SAT 95
[2024-03-10 07:14] VITALS: BP 121/77; PULSE 69; RESP 20; TEMP 36.5; O2SAT 96
[2024-03-10 07:22] LABS: Hematocrit 42.6 % (42.0-52.0); Hemoglobin 14.2 g/dl (14.0-18.0); Mean Corpuscular HGB Conc 33.3 g/dl (31.0-36.0); Mean Corpuscular Hemoglobin 30.8 pg (27.0-33.0); Mean Corpuscular Volume 92.4 fL (80.0-98.0); Mean Platelet Volume 9.8 fL (9.4-12.4); Platelet Count 193 X10*3/uL (160-400); Red Blood Count 4.61 X10*6/uL (4.60-5.80); White Blood Count 7.6 X10*3/uL (4.8-10.8)
[2024-03-10] MEDS: 0.9 % Sodium Chloride 1,000 ML 100 ML IVCONT (07:56)
--- NOTE | 2024-03-10 08:00 | ECG_ITS ---
Test Reason : high grade av block Blood Pressure : / mmHG Vent. Rate : 051 BPM Atrial Rate : 074 BPM P-R Int : 000 ms QRS Dur : 084 ms QT Int : 406 ms P-R-T Axes : 038 -03 015 degrees QTc Int : 374 ms Sinus rhythm with 2nd degree A-V block (Mobitz I) Abnormal ECG When compared with ECG of 09-MAR-2024 15:46, Previous ECG had 2 to 1 AV block Referred By: Dieter Gilbert Electronically Signed By:Fermin Rodriguez
[2024-03-10 08:01] LABS: Glucose, Whole Blood 112 mg/dL (60-115)
--- NOTE | 2024-03-10 10:20 | PM.CNCAR ---
History of Present Illness History of Present Illness Date of Service: 03/10/24 Chief complaint: weakness Narrative: I was consulted to see Jameel in cardiology consultation today for AV block. He is a 53-year-old male with prior history of hypertension, type 2 diabetes, hyperlipidemia, morbid obesity, obstructive sleep apnea, but couple months ago started on Mounjaro for diabetes management due to elevated sugars. He said over the last few days he has been getting overall weak and started noticing slow heart rate with heart rate in the 40s. He said in the past he would be after starting ammonia RV going driving any feet suddenly like he was fainting. He then subsequently notice as mentioned slow heart rate and got concerned as heart rate did not improve and decided come to the emergency room. Did not have an actual syncopal episodes. However he describes retrosternal chest discomfort which says that mild discomfort when he is stressed or sometimes with exertion although he is not very clear about it. On presentation to the Emergency was found to have 2 is to 1 av block with narrow QRS complex. Subsequently this improved to Mobitz type 1 second-degree AV block and this morning improved to first-degree AV block. Currently has heart rate is improved. He feels okay. Overnight did use his sleep apnea. Denies any heart failure symptoms. Review of Systems Constitutional: Constitutional: Reports weakness ENT: Reports dizziness Cardiovascular: Cardiovascular: Reports chest pain with activity, Denies Loss of Consciousness, Reports dyspnea on exertion and Denies orthopnea Respiratory: Respiratory: Reports dyspnea on exertion Gastrointestinal: Gastrointestinal: Reports no additional gastrointestinal complaints Musculoskeletal: Musculoskeletal: Reports no additional musculoskeletal complaints Integumentary/Breasts: Skin/Breast: Reports system reviewed and no additional complaints, except as docu Neurologic: Reports dizziness and Reports weakness Psychiatric: Psychiatric: Reports no additional psychiatric complaints Hematologic/Lymphatic: Hematologic/Lymphatic: Reports no additional hematologic/lymphatic complaints [facility] Past Medical History Medical History Vitamin B 12 deficiency Dizziness Annual physical exam Skin abnormalities STD (male) DM type 2 (diabetes mellitus, type 2) Venous (peripheral) insufficiency Obesity Hyperlipidemia PVD (peripheral vascular disease) Hypertension DVT (deep venous thrombosis) Factor 5 Leiden mutation, heterozygous SOB (shortness of breath) Family History Family History Father CVD (cardiovascular disease) Mother CVD (cardiovascular disease) Daughter No problems noted. Son No problems noted. Surgical History Surgical History Hx of esophagogastroduodenoscopy Hx of colonoscopy H/O vascular surgery Social History Social History Household Members: Spouse and Significant Other Housing: House Are you a primary health care marketing specialist to a significant other at home: No Do you presently have visiting nurse or other home services: No Unable to assess alcohol history related to: Unknown Patient Tobacco Use Status: Former Tobacco user Tobacco use type: Cigarette e-Cigarette/Vaping Use: Never Used Second Hand Smoke Exposure: No (none) Current occupational status: employed Cognitive needs: No Hearing needs: No Vision needs: No Meds Allergies Allergy/AdvReac Type Severity Reaction Status Date / Time A & D Allergy Severe anaphylaxis Verified 03/09/24 16:01 bacitracin [BACITRACIN] Allergy Severe Verified 03/09/24 16:01 SEIZURE , anaphylaxis Sulfa (Sulfonamide Allergy Mild SWELLING Verified 03/09/24 16:01 Antibiotics) adhesive tape Allergy Rash Verified 03/09/24 16:01 dapagliflozin [From Farxiga] AdvReac Intermediate Abdominal Verified 03/09/24 16:01 Pain dulaglutide [From Trulicity] AdvReac Intermediate Diarrhea, Verified 03/09/24 16:01 vomiting lisinopril AdvReac Intermediate Dizziness Verified 03/09/24 16:01 hydrochlorothiazide AdvReac weakness Verified 03/09/24 16:01 in his hands SSRI AdvReac Intermediate DECREASE Uncoded 10/31/23 13:17 LIBIDO Active Medications: Current Medications Acetaminophen (Acetaminophen 325 Mg Tablet) 650 mg PO Q6H PRN PRN Reason: Pain, Mild (Pain Scale 1-3), fever or headache Calcium Carbonate (Calcium Carbonate 750 Mg Tab.Chew) 750 mg PO Q4H PRN PRN Reason: Heartburn Sodium Chloride (Ns) 1,000 mls @ 100 mls/hr IVCONT .Q10H MELISSA Last Admin: 03/10/24 07:56 Dose: 100 mls/hr Magnesium Hydroxide (Milk Of Magnesia 30 Ml Oral.Susp) 30 ml PO DAILY PRN PRN Reason: Constipation Melatonin (Melatonin 3 Mg Tablet) 6 mg PO BEDTIME PRN PRN Reason: Insomnia Sodium Chloride (0.9 % Sodium Chloride Flush 3 Ml Syringe) 3 ml IVFLUSH QSHIFT [facility] Last Admin: 03/10/24 07:54 Dose: Not Given Home Medications ?Medication ?Instructions ?Recorded ?Confirmed ?Last Taken ?Type atenolol 25 mg tablet 25 mg PO DAILY 03/09/24 03/09/24 03/09/24 09:00 History cholecalciferol (vitamin D3) 25 25 mcg PO DAILY 03/09/24 03/09/24 03/09/24 09:00 History mcg (1,000 unit) capsule (Vitamin D3) metformin 750 mg tablet,extended 1,500 mg PO DAILY 03/09/24 03/09/24 03/09/24 15:00 History release 24 hr mineral oil-isopropyl myristat 1 appl topical DAILY 03/09/24 03/09/24 Unknown History lotion tirzepatide 5 mg/0.5 mL 5 mg subcut SA 03/09/24 03/09/24 Unknown History subcutaneous pen injector ([place]) Physical Exam Vital Signs: Vital Signs: Last Vital Signs Temp 97.7 F 03/10/24 07:14 Pulse 69 03/10/24 07:14 Resp 20 03/10/24 07:14 BP 121/77 03/10/24 07:14 Pulse Ox 96 03/10/24 07:14 O2 Del Method Room Air 03/10/24 07:14 BMI result Body Mass Index 43.1 Const: General: cooperative, comfortable, no acute distress, alert and awake Nutritional Appearance: obese morbidly obese Orientation/consciousness: patient oriented x3 Limitations: no limitations HEENT: Head: Yes normocephalic and Yes atraumatic Neck: Neck: Yes trachea midline, Yes supple and Yes no JVD Resp: Effort & Inspection: normal respiratory effort Auscultation: clear to auscultation bilaterally Cardio: Jugular venous distension: no JVD Palpation: normal PMI Rate: regular rate Rhythm: regular rhythm Heart sounds: S1 normal heart sound present, S2 normal heart sound present, no click, no gallops, no murmurs and no rubs GI: Auscultation: normal bowel sounds Skin: General skin exam: no rashes or lesions noted Neuro: General: patient oriented x3 and no focal motor deficits Extrem: General: Yes no clubbing, cyanosis or edema Objective Labs and Meds 03/10/24 06:55 03/09/24 18:40 Lab results: Laboratory Results - last 24 hr 03/09/24 03/09/24 03/09/24 16:17 17:11 18:40 WBC 8.1 7.5 RBC 4.76 4.89 Hgb 14.6 15.0 Hct 42.9 44.3 MCV 90.1 90.6 MCH 30.7 30.7 MCHC 34.0 33.9 RDW 12.8 12.9 Plt Count 232 234 MPV 9.6 9.6 Immature Gran % (Auto) 0.5 H Neut % (Auto) 66.5 Lymph % (Auto) 25.1 [place] % (Auto) 5.8 Eos % (Auto) 1.4 Baso % (Auto) 0.7 Lymph # (Auto) 2.0 [place] # (Auto) 0.5 Eos # (Auto) 0.1 Baso # (Auto) 0.1 Abs Immat Gran (auto) 0.04 H Absolute Neuts (auto) 5.4 Absolute Nucleated RBC 0.000 0.000 Nucleated RBC % (auto) 0.0 0.0 PT 31.8 H 31.8 H INR 2.6 H 2.6 H APTT 70.6 H* 65.6 H* Sodium 137 139 Potassium 4.2 4.1 Chloride 104 103 Carbon Dioxide 24 27 Anion Gap 13 13 BUN 12 12 Creatinine 1.32 1.21 Estim Creat Clear Calc 87.8 95.8 Estimated GFR 57 > 60 POC Glucose Random Glucose 147 H Fasting Glucose 101 H Calcium 9.5 9.7 Total Bilirubin 0.4 0.4 AST 21 19 ALT 23 23 Alkaline Phosphatase 49 47 Troponin I High Sens < 2.7 Total Protein 7.5 7.5 Albumin 4.0 4.0 Urine Color Yellow Urine Appearance Clear Urine pH 6.0 Ur Specific [place] 1.010 Urine Protein Negative Urine Glucose (UA) Negative Urine Ketones Negative Urine Blood Negative Urine Nitrite Negative Ur Leukocyte Esterase Negative Urine Opiates Screen Not Detected Ur Buprenorphine Scrn Not Detected Ur Oxycodone Screen Not Detected Urine Methadone Screen Not Detected Urine Fentanyl Screen Not Detected Ur Barbiturates Screen Not Detected Ur Phencyclidine Scrn Not Detected Ur Amphetamines Screen Not Detected U Benzodiazepines Scrn Not Detected Urine Cocaine Screen Not Detected U Marijuana (THC) Screen Not Detected 03/10/24 03/10/24 06:55 07:53 WBC 7.6 RBC 4.61 Hgb 14.2 Hct 42.6 MCV 92.4 MCH 30.8 MCHC 33.3 RDW 13.0 Plt Count 193 MPV 9.8 Immature Gran % (Auto) Neut % (Auto) Lymph % (Auto) [place] % (Auto) Eos % (Auto) Baso % (Auto) Lymph # (Auto) [place] # (Auto) Eos # (Auto) Baso # (Auto) Abs Immat Gran (auto) Absolute Neuts (auto) Absolute Nucleated RBC 0.000 Nucleated RBC % (auto) 0.0 PT INR APTT Sodium Potassium Chloride Carbon Dioxide Anion Gap BUN Creatinine Estim Creat Clear Calc Estimated GFR POC Glucose 112 Random Glucose Fasting Glucose Calcium Total Bilirubin AST ALT Alkaline Phosphatase Troponin I High Sens Total Protein Albumin Urine Color Urine Appearance Urine pH Ur Specific [place] Urine Protein Urine Glucose (UA) Urine Ketones Urine Blood Urine Nitrite Ur Leukocyte Esterase Urine Opiates Screen Ur Buprenorphine Scrn Ur Oxycodone Screen Urine Methadone Screen Urine Fentanyl Screen Ur Barbiturates Screen Ur Phencyclidine Scrn Ur Amphetamines Screen U Benzodiazepines Scrn Urine Cocaine Screen U Marijuana (THC) Screen EKG 1. Shows normal sinus rhythm with 2 is to 1 av block with narrow QRS complex EKG 2. Shows normal sinus rhythm with Mobitz type 1 second-degree AV block Assessment and Plan (1) Heart block AV second degree: Status: Acute Patient present with symptoms of dizziness also has some chest pain with notice 2 is to 1 av block which is gradually improved to Mobitz type 1 second-degree AV block and now to first-degree AV block all findings suggestive of AV greer level block. This traditionally does not require a pacemaker placement. Patient is on atenolol therapy which can exacerbate AV greer block. Stop atenolol therapy which has been already done. Will need to choose alternative antihypertensive therapy if required. Will perform a treadmill stress test to evaluate for any exercise-induced AV greer block that may then indicate a pacemaker placement. This was discussed with him. Also given his chest pain with multiple risk factors including diabetes, hypertension, morbid obesity as well as family history to rule out myocardial ischemia as a cause. Treadmill stress test will be done later today. If everything is negative patient can most likely be discharged home today and follow-up with outpatient Holter monitor. Will sign of the case at this point Procedures Date of Service Date of Service: 03/10/24
--- NOTE | 2024-03-10 10:54 | P.CDIM_ITS ---
PROVIDER RESPONSE TEXT: To clarify, the appropriate diagnosis supported by the clinical indicators: Morbid Obesity QUERY TEXT: PHYSICIAN'S DOCUMENTATION REQUEST Date of Query: 03/10/2024 08:56 AM EDT Patient Name: Jameel Gallardo Admit Date: 03/09/2024 Dear Dieter Gilbert DO, A review of the medical record indicates additional documentation may be needed. Please review below and update the documentation accordingly. Clinical Indicators: Height: 5ft 9in Weight: 132.5kg BMI: 43.1kg Other Clinical Notes Supporting Significance of the BMI: Nursing notes Height and Weight: class III o besity If possible, please provide an associated diagnosis related to the abnormal BMI, such as: Morbid Obesity Severe obesity Other (explain) Clinically unable to determine (explain) Thank you, Mireille Ramirez, CCS, CDIS Use of terms such as suspected, likely, concern for, or probable (associated with a specific diagnosi s that is being evaluated, monitored, or treated as if it exists) are acceptable and can be coded in the inpatient se tting, when documented at the time of discharge. Please use your independent medical judgment in providing your response. THIS QUERY IS PART OF THE PERMANENT MEDICAL RECORD
[2024-03-10 11:33] VITALS: BP 120/73; PULSE 56; RESP 20; TEMP 36.2; O2SAT 97
[2024-03-10 11:51] LABS: Glucose, Whole Blood 109 mg/dL (60-115)
--- NOTE | 2024-03-10 12:10 | PM.DS ---
DS: Providers Provider Date of Service: 03/10/24 Date of admission: 03/09/24 17:24 Date of discharge: 03/10/24 Primary care physician: Esha Corbin MD Consults: 03/09/24 17:42 Consult to Cardiology Routine Consulting Provider: [facility] [place] [facility] Reason for consultation: High grade AV block Has provider been notified: Yes DS: Diagnosis Discharge Diagnosis (1) Heart block AV second degree: Status: Acute DS: Summary Hospital Course Hospital Course: 53-year-old male with a history of hypertension type 2 diabetes and hypercholesterolemia presents with approximately 3-4 days of overall weakness and what he stated was a slow heart rate. He has had over the last several weeks he has had periods of time where he felt very weak and sleepy but they were self-limited and he was not concerned. The symptoms have gotten worse over the time. He continued to take all his meds including atenolol. He presented to the emergency room and found to be in high-grade AV block. Hospital Course Patient admitted to telemetry where he remained in a two-to-one AV block until about 0 200 today. At that time he was in a sinus rhythm. He was seen in consultation by Cardiology. Atenolol was held since admit. A Cardiology recommendation he underwent a ETT which was read as normal response. At this point in time Cardiology is not recommending pacemaker and they will follow the patient up with a Holter in the office. This point time he is medically acceptable for discharge he will resume all his home meds except for his atenolol. This was stressed to he and his Time Attestation Discharge Coordination Time (in mins): 35 Quality: Safe Use of Opioids Does Pt have an Active Cancer Diagnosis on the Problem List?: No Quality: Stroke Does the patient have a stroke diagnosis?: No Physical Exam Vital Signs: Vital Signs: Last Vital Signs Temp 97.1 F 03/10/24 11:33 Pulse 56 03/10/24 11:33 Resp 20 03/10/24 11:33 BP 120/73 03/10/24 11:33 Pulse Ox 97 03/10/24 11:33 O2 Del Method Room Air 03/10/24 11:33 BMI result Body Mass Index 43.1 Const: Other: Awake alert no acute distress Resp: Other: Clear to auscultation bilaterally no rales rhonchi or wheezes Cardio: Other: No S4; positive S1-S2; no S3 murmurs rubs or gallops GI: Other: Obese; soft nontender normoactive bowel sounds all quadrants Neuro: Other: Cranial nerves 2-12 grossly intact as tested. Motor is 5/5 all extremities. Sensation is intact. Cognition appropriate. Gait stable Extrem: Other: Bilateral lower extremity edema DS: Data Data Completed and Pending Labs on day of discharge: Laboratory Results - last 24 hr 03/09/24 03/09/24 03/09/24 16:17 17:11 18:40 WBC 8.1 7.5 RBC 4.76 4.89 Hgb 14.6 15.0 Hct 42.9 44.3 MCV 90.1 90.6 MCH 30.7 30.7 MCHC 34.0 33.9 RDW 12.8 12.9 Plt Count 232 234 MPV 9.6 9.6 Immature Gran % (Auto) 0.5 H Neut % (Auto) 66.5 Lymph % (Auto) 25.1 Callahan % (Auto) 5.8 Eos % (Auto) 1.4 Baso % (Auto) 0.7 Lymph # (Auto) 2.0 Callahan # (Auto) 0.5 Eos # (Auto) 0.1 Baso # (Auto) 0.1 Abs Immat Gran (auto) 0.04 H Absolute Neuts (auto) 5.4 Absolute Nucleated RBC 0.000 0.000 Nucleated RBC % (auto) 0.0 0.0 PT 31.8 H 31.8 H INR 2.6 H 2.6 H APTT 70.6 H* 65.6 H* Sodium 137 139 Potassium 4.2 4.1 Chloride 104 103 Carbon Dioxide 24 27 Anion Gap 13 13 BUN 12 12 Creatinine 1.32 1.21 Estim Creat Clear Calc 87.8 95.8 Estimated GFR 57 > 60 POC Glucose Random Glucose 147 H Fasting Glucose 101 H Calcium 9.5 9.7 Total Bilirubin 0.4 0.4 AST 21 19 ALT 23 23 Alkaline Phosphatase 49 47 Troponin I High Sens < 2.7 Total Protein 7.5 7.5 Albumin 4.0 4.0 Urine Color Yellow Urine Appearance Clear Urine pH 6.0 Ur Specific [place] 1.010 Urine Protein Negative Urine Glucose (UA) Negative Urine Ketones Negative Urine Blood Negative Urine Nitrite Negative Ur Leukocyte Esterase Negative Urine Opiates Screen Not Detected Ur Buprenorphine Scrn Not Detected Ur Oxycodone Screen Not Detected Urine Methadone Screen Not Detected Urine Fentanyl Screen Not Detected Ur Barbiturates Screen Not Detected Ur Phencyclidine Scrn Not Detected Ur Amphetamines Screen Not Detected U Benzodiazepines Scrn Not Detected Urine Cocaine Screen Not Detected U Marijuana (THC) Screen Not Detected 03/10/24 03/10/24 03/10/24 06:55 07:53 11:47 WBC 7.6 RBC 4.61 Hgb 14.2 Hct 42.6 MCV 92.4 MCH 30.8 MCHC 33.3 RDW 13.0 Plt Count 193 MPV 9.8 Immature Gran % (Auto) Neut % (Auto) Lymph % (Auto) Callahan % (Auto) Eos % (Auto) Baso % (Auto) Lymph # (Auto) Callahan # (Auto) Eos # (Auto) Baso # (Auto) Abs Immat Gran (auto) Absolute Neuts (auto) Absolute Nucleated RBC 0.000 Nucleated RBC % (auto) 0.0 PT INR APTT Sodium Potassium Chloride Carbon Dioxide Anion Gap BUN Creatinine Estim Creat Clear Calc Estimated GFR POC Glucose 112 109 Random Glucose Fasting Glucose Calcium Total Bilirubin AST ALT Alkaline Phosphatase Troponin I High Sens Total Protein Albumin Urine Color Urine Appearance Urine pH Ur Specific [place] Urine Protein Urine Glucose (UA) Urine Ketones Urine Blood Urine Nitrite Ur Leukocyte Esterase Urine Opiates Screen Ur Buprenorphine Scrn Ur Oxycodone Screen Urine Methadone Screen Urine Fentanyl Screen Ur Barbiturates Screen Ur Phencyclidine Scrn Ur Amphetamines Screen U Benzodiazepines Scrn Urine Cocaine Screen U Marijuana (THC) Screen Discharge Plan Discharge Anticipated Discharge Date/Time: 03/10/24 12:05 Patient Disposition: Home, Self-Care Discharge Diagnosis: Mobitz type 2 av block Referrals: Esha Corbin MD [Primary Care Provider] - 1 Week Discharge Medications: Continued (DME) blood-glucose meter [OneTouch Ultra2 Meter] Kit See Rx Instructions .Route Qty: 1 0RF Rx Instructions: As directed (DME) lancing device with lancets [OneTouch Delica Lanc Device] Kit See Rx Instructions .Route Qty: 1 0RF Rx Instructions: testing blood sugar once daily (DME) lancets [OneTouch Delica Lancets] 33 gauge misc See Rx Instructions .Route Qty: 100 3RF Rx Instructions: test blood sugar daily (DME) CPAP Machine/Device Device See Rx Instructions .Route Qty: 1 0RF Rx Instructions: auto PAP 6-20 cm with heated humidification with needed supplies (DME) OneTouch Ultra Test Strip See Rx Instructions .Route Qty: 100 3RF Rx Instructions: test blood sugar once a day simvastatin 40 mg tablet 40 mg PO DAILY Qty: 90 3RF warfarin 7.5 mg tablet 7.5 mg PO DAILY Qty: 90 1RF diphenhydramine HCl [Benadryl] 25 mg capsule 50 mg PO Q6H PRN (Reason: allergic reaction) Qty: 20 0RF cholecalciferol (vitamin D3) [Vitamin D3] 25 mcg (1,000 unit) Capsule 25 mcg PO DAILY mineral oil-isopropyl myristat Lotion 1 appl TOPICAL DAILY metformin 750 mg tablet extended release 24 hr 1,500 mg PO DAILY Mounjaro 5 mg/0.5 mL pen injector 5 mg subcut SA (DME) lancets [OneTouch UltraSoft Lancets] Misc See Rx Instructions .ROUTE .MEDSUPPLY Qty: 100 6RF Rx Instructions: TID Discontinued atenolol 25 mg tablet 25 mg PO DAILY Discharge Orders: Discharge Order (Routine); Ordered 03/10/24 Ordered By: Dieter Gilbert Diet: Advance to usual diet Activity on Discharge: As tolerated Stand Alone Forms: Patient Portal Discharge page Print Language: Scottish Care Plan Goals: Continue all pre-hospital meds except atenolol. No further atenolol Health Concerns: Cardiology will call for a follow-up appointment. Follow-up with your PCP next available Plan of Treatment: Restart Coumadin as normal. Your INR is 2.6 today Assessment: See discharge summary
[2024-03-11 11:54] LABS: Lyme Abs Screen <0.90 index
== END 2024-03-10 12:35 | disposition home or self-care (01) | DRG 309 ==
LOC: HO.ED 17:09 → HO.EDOVER 17:33 → HO.IMC 19:42
PROVIDERS: Physician Assistant; Admitting Provider Hospitalist; Emergency Provider Emergency Medicine Emergency Medical Services; PCP Internal Medicine; Visit Provider Hospitalist
DX: I44.1 Atrioventricular block, second degree (principal); D68.51 Activated protein C resistance; Z68.41 Body mass index [BMI] 40.0-44.9, adult; E78.00 Pure hypercholesterolemia, unspecified; I10 Essential (primary) hypertension; E66.01 Morbid (severe) obesity due to excess calories; Z79.4 Long term (current) use of insulin; Z79.84 Long term (current) use of oral hypoglycemic drugs; Z79.01 Long term (current) use of anticoagulants; Z79.899 Other long term (current) drug therapy
CPT/HCPCS: 36415; 71045; 80053; 80307; 81003; 82947; 84484; 85025; 85027; 85610; 85730; 86617; 86618; 93005; 93017; 94660; 99285

== ENCOUNTER 2024-03-09 17:24 | Outpatient (BNV) | payer MEDICARE, MEDICAID, SELFPAY | END 2024-03-10 08:00 | PROVIDERS: Admitting Provider Hospitalist; Emergency Provider Emergency Medicine Emergency Medical Services; PCP Internal Medicine; Visit Provider Internal Medicine Cardiovascular Disease | DX: I44.0 Atrioventricular block, first degree (principal) | CPT/HCPCS: 93010; 93016; 93018 ==

== ENCOUNTER → 2024-03-09 17:24 | Outpatient (BNV) | payer MEDICARE, MEDICAID, SELFPAY | PROVIDERS: Admitting Provider Hospitalist; Emergency Provider Emergency Medicine Emergency Medical Services; PCP Internal Medicine; Visit Provider Internal Medicine Cardiovascular Disease | DX: I44.1 Atrioventricular block, second degree (principal) | CPT/HCPCS: 93010; 99222 ==

== ENCOUNTER → 2024-03-09 17:24 | Outpatient (BNV) | payer MEDICARE, MEDICAID, SELFPAY | PROVIDERS: Admitting Provider Hospitalist; Emergency Provider Emergency Medicine Emergency Medical Services; PCP Internal Medicine; Visit Provider Hospitalist | DX: I44.1 Atrioventricular block, second degree (principal) | CPT/HCPCS: 99223; 99239 ==

== ENCOUNTER 2024-03-13 13:25 | Outpatient (AMB) | payer MEDICARE, MEDICAID, SELFPAY ==
--- NOTE | 2024-03-13 13:44 | A.OFFPC_ITS ---
Vital Signs 03/13/24 13:45 Height 5 ft 9 in Weight 288 lb BMI 42.5 BP 116/78 Blood Pressure Location Lt brachial Position Sitting Pulse 86 Pulse Source Pulse Oximeter Pulse Oximetry (%) 97 Oxygen Delivery Method Room Air Intake Visit Reasons: Hospital follow up Intake Note: Pt is here today for Hospital follow up visit. Pt states that his pulse was very low and he went to the hospital and they stopped his BP medication. Allergies A & D Allergy (Severe, Verified 03/13/24 13:49) anaphylaxis bacitracin [BACITRACIN] Allergy (Severe, Verified 03/13/24 13:49) SEIZURE , anaphylaxis Sulfa (Sulfonamide Antibiotics) Allergy (Mild, Verified 03/13/24 13:49) SWELLING adhesive tape Allergy (Verified 03/13/24 13:49) Rash dapagliflozin [From Farxiga] Adverse Reaction (Intermediate, Verified 03/13/24 13:49) Abdominal Pain dulaglutide [From Trulicity] Adverse Reaction (Intermediate, Verified 03/13/24 13:49) Diarrhea, vomiting lisinopril Adverse Reaction (Intermediate, Verified 03/13/24 13:49) Dizziness hydrochlorothiazide Adverse Reaction (Verified 03/13/24 13:49) weakness in his hands SSRI Adverse Reaction (Intermediate, Uncoded 03/13/24 13:49) DECREASE LIBIDO Medication List - Last Reconciled 03/13/24 by Esha Corbin MD blood sugar diagnostic ([employer] Ultra Test strips) test blood sugar once a day blood-glucose meter ([employer] Ultra2 Meter kit) As directed cholecalciferol (vitamin D3) (Vitamin D3) 25 mcg PO DAILY CPAP (CPAP Machine/Device) auto PAP 6-20 cm with heated humidification with needed supplies diphenhydramine HCl (Benadryl) 50 mg (2 x 25 mg) PO Q6H PRN lancets ([employer] UltraSoft Lancets) TID lancets ([employer] Delica Lancets) test blood sugar daily lancing device with lancets ([employer] Delica Lancing Device kit) testing blood sugar once daily metformin ER 1,500 mg PO DAILY mineral oil-isopropyl myristat 1 appl topical DAILY simvastatin 40 mg PO DAILY tirzepatide (Mounjaro) 5 mg subcut SA warfarin 7.5 mg PO DAILY Tobacco use date assessed: 03/13/24 Dental Screening Dental Screen Date: 03/13/24 Did you have a dental visit in the last 12 months?: Yes Did you have a dental problem in the last 6 months where you did not have access to dental care?: No Was dental information given to patient?: Patient has dentist [facility] Hospital follow up HPI Details Patient presents for hospitalization at [facility] for an episode general fatigue and bradycardia to 40s. Patient was found to have second-degree AV block with a heart rate of 42 and was admitted to telemetry. Atenolol was discontinued and patient's heart rate improved to 80s. She denies any recurrent symptoms of bradycardia including fatigue chest pain palpitations lightheadedness. Patient has a cardiac workup scheduled as outpatient including Holter echocardiogram and nuclear stress test. Type 2 diabetes is controlled on current medications. [facility] Medical History (Updated 03/13/24 @ 15:01 by Esha Corbin MD) Vitamin B 12 deficiency Dizziness Annual physical exam Skin abnormalities STD (male) DM type 2 (diabetes mellitus, type 2) Venous (peripheral) insufficiency Obesity Hyperlipidemia PVD (peripheral vascular disease) Hypertension DVT (deep venous thrombosis) Factor 5 Leiden mutation, heterozygous SOB (shortness of breath) Surgical History Hx of esophagogastroduodenoscopy Hx of colonoscopy H/O vascular surgery Family History Father CVD (cardiovascular disease) Mother CVD (cardiovascular disease) Daughter No problems noted. Son No problems noted. Social History Household Members: Spouse and Significant Other Housing: House Are you a primary respite care provider to a significant other at home: No Do you presently have visiting nurse or other home services: No Unable to assess alcohol history related to: Unknown Patient Tobacco Use Status: Former Tobacco user Tobacco use type: Cigarette e-Cigarette/Vaping Use: Never Used Second Hand Smoke Exposure: No (none) service: No Current occupational status: employed Cognitive needs: No Hearing needs: No Vision needs: No Questionnaire PHQ-9 Over the last 2 weeks, how often have you been bothered by any of the following problems? 1. Little interest or pleasure in doing things: not at all 2. Feeling down, depressed, or hopeless: not at all 3. Trouble falling or staying asleep, or sleeping too much: not at all 4. Feeling tired or having little energy: not at all 5. Poor appetite or overeating: not at all 6. Feeling bad about yourself - or that you are a failure or have let yourself or your family down: not at all 7. Trouble concentrating on things, such as reading the newspaper or watching television: not at all 8. Moving or speaking so slowly that other people could have noticed. Or the opposite - being so fidgety or restless that you have been moving around a lot more than usual: not at all 9. Thoughts that you would be better off or of hurting yourself in some way: not at all Total score: 0 Depression Screening Interpretation: Negative Depression Screening Done: Yes 64658 - PHQ-9 Billing: Yes Source: Developed by Drs. Marco Antonio Zhu, Ginger Freed, Se Bahena and colleagues, with an educational teresita from [employer]. Thrive Questionnaire Date Thrive assessed: 03/13/24 I am a: Patient What is your living situation today?: I choose not to answer this question Within the past 12 months, did the food you bought not last and you didn't have the money to get more?: I choose not to answer this question Within the past 12 months, did you worry whether your food would run out before you got money to buy more?: I choose not to answer this question Do you have trouble paying for medicines?: I choose not to answer this question Do you have trouble getting transportation to medical appointments?: I choose not to answer this question Do you have trouble paying your heating and electricity bill?: I choose not to answer this question Do you have trouble taking care of your child, family member or friend?: I choose not to answer this question Do you have trouble with day-to-day activities such as bathing, preparing meals, shopping, managing finances, etc.?: I choose not to answer this question Are you currently unemployed and looking for a job?: I choose not to answer this question Are you interested in more education?: I choose not to answer this question Please select the resources that you would like help with: Housing/Usp Currently or been in a relationship where the following occur: I choose not to answer THRIVE Score: 0 AUDIT C Alcohol Use Questionnaire (AUDIT-C) 1. How often do you have a drink containing alcohol?: Never 3. How often do you have six or more drinks on one occasion?: Never Total Score: 0 ANISA-7 AMB Questionnaire ANISA-7 Date ANISA - 7 assessed: 03/13/24 Feeling nervous, anxious, or on edge: 0 = Not at all Not being able to stop or control worryin = Not at all Worrying too much about different things: 0 = Not at all Trouble relaxin = Not at all Being so restless that it is hard to sit still: 0 = Not at all Becoming easily annoyed or irritable: 0 = Not at all Feeling afraid as if something awful might happen: 0 = Not at all Total ANISA-7 score (0-4 normal; 5-9 mild; 10-14 moderate; 15-21 severe): 0 Source: Developed by Drs. Marco Antonio Zhu, Ginger Freed, Se Bahena and colleagues, with an educational teresita from [employer]. ANISA-7 Assessment Billing ANISA-7 Assessment Tool: ANISA-7 Assessment 10901 Review of Systems Const All systems reviewed & are unremarkable except as noted in HPI and below ENT Reports no additional complaints Resp Reports no additional complaints GI Reports no additional complaints Reports no additional complaints Musc Reports no additional complaints Physical exam (Primary Care) Vital Signs: Last Vital Signs Pulse 86 03/13/24 13:45 BP 116/78 03/13/24 13:45 Pulse Ox 97 03/13/24 13:45 Oxygen Delivery Method Room Air 03/13/24 13:45 BMI result Body Mass Index 42.5 Tobacco/Smoking Status: Tobacco use Status Tobacco use date assessed 03/13/24 03/13/24 13:51 Patient Tobacco Use Status Former Tobacco user 03/13/24 13:45 Tobacco use type Cigarette 03/13/24 13:45 e-Cigarette/Vaping Use Never Used 03/13/24 13:45 PHQ-9: PHQ-9 Score PHQ-9: Total score 0 03/13/24 13:51 Depression Screening Interpretation: Negative Thrive Assessment: Date of Thrive Assessment Date Thrive assessed 03/13/24 03/13/24 13:51 Currently or been in a relationship where the following occur: I choose not to answer Const General: no acute distress HENMT Throat: Yes posterior oropharynx normal Neck Neck: Yes no lymphadenopathy and Yes supple Resp Effort & Inspection: normal respiratory effort Auscultation: clear to auscultation bilaterally Cardio Rhythm: regular rhythm Heart sounds: S1 normal heart sound present and S2 normal heart sound present GI Inspection: Yes normal to inspection Palpation (GI): Soft to palpation Percussion: Yes normal to percussion Auscultation: normal bowel sounds Assessment and Plan Assessment & Plan (1) Heart block AV second degree: Comment: on Atenolol, [place] [facility], resolved after stopping Atenolol 03/29 Code(s): I44.1 - Atrioventricular block, second degree Plan: Follow-up with Cardiology for echo Holter and nuclear stress test (2) DM type 2 (diabetes mellitus, type 2): Code(s): E11.9 - Type 2 diabetes mellitus without complications Qualifiers: Diabetes mellitus cable former insulin use: without cable former use Diabetes mellitus complication status: without complication Qualified Code(s): E11.9 - Type 2 diabetes mellitus without complications Plan: Continue current medications (3) Hyperlipidemia: Code(s): E78.5 - Hyperlipidemia, unspecified Plan: Continue statin (4) Hypertension: Comment: Could not tolerate lisinopril causes dizziness, atenolol caused second-degree AV Code(s): I10 - Essential (primary) hypertension Qualifiers: Hypertension type: primary hypertension Qualified Code(s): I10 - Essential (primary) hypertension (5) Factor 5 Leiden mutation, heterozygous: Comment: on Warfarin Code(s): D68.51 - Activated protein C resistance Medications: New blood-glucose sensor (Dexcom G7 Sensor device) As directed 2 ea 2RF Coding Level of Care Code Est Pt Level 4 (01791) Diagnoses Heart block AV second degree I44.1 Type 2 diabetes mellitus without complication, without long-term current use of insulin E11.9 Diabetes mellitus custodial insulin use: without cable former use Diabetes mellitus complication status: without complication Hyperlipidemia E78.5 Primary hypertension I10 Hypertension type: primary hypertension Factor 5 Leiden mutation, heterozygous D68.51 Additional Codes ANISA-7 Assessment Billing - ANISA-7 Assessment Tool: ANISA-7 Assessment 44426 ([id number])
[2024-03-13 13:45] VITALS: BP 116/78; PULSE 86; O2SAT 97; BMI 42.5
== END 2024-03-13 15:01 | disposition home or self-care (01) ==
PROVIDERS: PCP Internal Medicine; Visit Provider Internal Medicine
DX: I44.1 Atrioventricular block, second degree (principal); E11.69 Type 2 diabetes mellitus with other specified complication; D68.51 Activated protein C resistance; E78.5 Hyperlipidemia, unspecified; I10 Essential (primary) hypertension
CPT/HCPCS: 99214

== ENCOUNTER → 2024-03-14 13:33 | Outpatient (REF) | payer MEDICARE, MEDICAID, SELFPAY ==
--- NOTE | 2024-03-14 13:36 | HM_ITS ---
* Procedure time 30 days. Wear time 14 days. * Underlying rhythm is sinus with an average rate of 85/Min. About 27% of the time, rate > 100/Min. * No significant supraventricular ectopy. * Rare ventricular ectopy. Run of 4 beats. * Mobitz type 1 second-degree AV block during overnight hours. * Diary symptoms of 'stung by hornet' associated with sinus tachycardia, ventricular couplets. Chest pressure, dizziness associated with sinus rhythm. MTDD
== END ==
LOC: HO.CARD 13:33
PROVIDERS: Visit Provider Internal Medicine Cardiovascular Disease
DX: I44.1 Atrioventricular block, second degree (principal); G47.33 Obstructive sleep apnea (adult) (pediatric); E78.5 Hyperlipidemia, unspecified
CPT/HCPCS: 93270

== ENCOUNTER → 2024-03-14 13:36 | Outpatient (BNV) | payer MEDICARE, MEDICAID, SELFPAY | PROVIDERS: Visit Provider Internal Medicine | DX: I44.1 Atrioventricular block, second degree (principal) | CPT/HCPCS: 93272 ==

== ENCOUNTER 2024-03-25 08:51 | Outpatient (REF) | payer MEDICARE, MEDICAID, SELFPAY ==
--- NOTE | ~2024-03-25 | FL_ITS ---
EXAMINATION: XR FLUOROSCOPY UPPER GI WITH AIR CLINICAL INFORMATION: Dysphagia COMPARISON: None TECHNIQUE: Fluoroscopic air contrast upper GI examination was performed utilizing standard techniques with thin and thick barium and effervescent granules. Numerous spot images were obtained. FINDINGS: Lateral cine images of the oropharynx and hypopharynx demonstrate normal swallow mechanism with normal epiglottic inversion and soft palate elevation. No tracheal penetration, glottic or subglottic aspiration identified. No nasopharyngeal reflux present. Hypopharyngeal structures appear normal without evidence of mass or diverticulum. Mild cricopharyngeal achalasia is present. Dual and single contrast images of the esophagus demonstrate a normal caliber and contour. There is felinization of the mid esophageal mucosa. No evidence of stricture, mass, or ulcerations identified. Esophageal peristalsis was normal. No evidence of hiatus hernia identified. No significant gastroesophageal reflux was seen during the course of the examination and on reflux views. Dual contrast and single contrast images of the stomach demonstrated a normal contour. There is a mixed density noted in the stomach that gives the appearance of multiple filling defects in the mucosa, however these move with patient positioning. This likely represents retained food. This limits evaluation of the gastric mucosa. Contrast freely passed into the gastric antrum and duodenal bulb without delay. Single and air-contrast images of the duodenal bulb demonstrate no abnormality. The duodenal sweep has a normal appearance, course, and mucosal fold appearance. The imaged proximal jejunum has a normal fold pattern and caliber. FLUOROSCOPY TIME: 3 minutes 28 seconds Number of Spot Images: 5 Number of Cine: 14 DOSE AREA PRODUCT: 3425 uGy-m2 (microgray-meter squared) FL/FL barium swallow with air IMPRESSION: 1. Mild cricopharyngeal achalasia. 2. Felinization of the midesophagus mucosa. This is associated with chronic gastroesophageal reflux. While reflux was not seen during this examination, suspect at least moderate reflux. 3. Limited evaluation of the gastric mucosa due to a large mixed density noted in the stomach that moves with patient positioning. This likely represents retained food. If the patient was truly n.p.o., this may suggest gastroparesis. This procedure was performed by Wily Glasgow PA-C, and supervised by Dr. Lagos Electronically signed by: Devan Lagos MD 03/27/2024 02:45 PM EDT
== END 2024-03-25 08:52 | disposition home or self-care (01) ==
LOC: HO.XRAY 08:51
PROVIDERS: PCP Internal Medicine; Visit Provider Internal Medicine Gastroenterology
DX: R13.14 Dysphagia, pharyngoesophageal phase (principal)
CPT/HCPCS: 74221

== ENCOUNTER → 2024-03-25 08:53 | Outpatient (BNV) | payer MEDICARE, MEDICAID, SELFPAY | PROVIDERS: PCP Internal Medicine; Visit Provider Radiology Diagnostic Radiology | DX: R13.10 Dysphagia, unspecified (principal) | CPT/HCPCS: 74246 ==

== ENCOUNTER 2024-03-25 14:30 | Outpatient (AMB) | payer MEDICARE, MEDICAID, SELFPAY ==
--- NOTE | 2024-03-25 14:33 | AM.OFFWIN_ITS ---
Intake Vital Signs 03/25/24 14:34 Height 5 ft 9 in Weight 287 lb BMI 42.4 BP 140/100 H Blood Pressure Location Rt brachial Position Sitting Pulse 90 Pulse Source Pulse Oximeter Pulse Oximetry (%) 99 Oxygen Delivery Method Room Air Intake Visit Reasons: EP light headed, dizzy ?High BP Intake Note: Patient here for elevated BP, is lightheaded sometimes. Patient Tobacco Use Status: Former Tobacco user Allergies A & D Allergy (Severe, Verified 03/25/24 14:35) anaphylaxis bacitracin [BACITRACIN] Allergy (Severe, Verified 03/25/24 14:35) SEIZURE , anaphylaxis Sulfa (Sulfonamide Antibiotics) Allergy (Mild, Verified 03/25/24 14:35) SWELLING adhesive tape Allergy (Verified 03/25/24 14:35) Rash dapagliflozin [From Farxiga] Adverse Reaction (Intermediate, Verified 03/25/24 14:35) Abdominal Pain dulaglutide [From [facility]] Adverse Reaction (Intermediate, Verified 03/25/24 14:35) Diarrhea, vomiting lisinopril Adverse Reaction (Intermediate, Verified 03/25/24 14:35) Dizziness SSRI Adverse Reaction (Intermediate, Uncoded 03/25/24 14:35) DECREASE LIBIDO Do you need a note to return to daycare/school/sports/work: No HPI HPI Comments History of Present Illness Details 54 y/o male patient who presents to the walk in clinic with c/o elevated BP, lightheadedness and dizziness. Pt has h/o HTN, and was on ATenolol for 10 years. This was discontinued due to Heart Block. Currently sees cardiology and wears Heart monitor. Denies CP, SOB, or Palpitations. [facility] Medical History (Updated 03/18/24 @ 00:02 by Background [place]) Heart block AV second degree Vitamin B 12 deficiency Dizziness Annual physical exam Skin abnormalities STD (male) DM type 2 (diabetes mellitus, type 2) Venous (peripheral) insufficiency Obesity Hyperlipidemia PVD (peripheral vascular disease) Hypertension DVT (deep venous thrombosis) Factor 5 Leiden mutation, heterozygous SOB (shortness of breath) Surgical History Hx of esophagogastroduodenoscopy Hx of colonoscopy H/O vascular surgery Family History Father CVD (cardiovascular disease) Mother CVD (cardiovascular disease) Daughter No problems noted. Son No problems noted. Social History Household Members: Spouse and Significant Other Housing: House Are you a primary home care provider to a significant other at home: No Do you presently have visiting nurse or other home services: No Unable to assess alcohol history related to: Unknown Patient Tobacco Use Status: Former Tobacco user Tobacco use type: Cigarette e-Cigarette/Vaping Use: Never Used Second Hand Smoke Exposure: No (none) service: No Current occupational status: employed Cognitive needs: No Hearing needs: No Vision needs: No Review of Systems Const All systems reviewed & are unremarkable except as noted in HPI and below Physical Exam Vital Signs: Last Vital Signs Pulse 90 03/25/24 14:34 BP 140/100 H 03/25/24 14:34 Pulse Ox 99 03/25/24 14:34 Oxygen Delivery Method Room Air 03/25/24 14:34 BMI result Body Mass Index 42.4 Const General: comfortable and no acute distress Nutritional Appearance: obese Orientation/consciousness: patient oriented x3 Resp Effort & Inspection: normal respiratory effort and able to speak in complete sentences Auscultation: clear to auscultation bilaterally Cardio Heart sounds: S1 normal heart sound present and S2 normal heart sound present Neuro General: patient oriented x3, gait normal and moves all extremities Psych Speech and movement: Normal speech and movement present Assessment & Plan Assessment & Plan (1) Hypertension: Code(s): I10 - Essential (primary) hypertension Qualifiers: Hypertension type: unspecified Qualified Code(s): I10 - Essential (primary) hypertension Plan: Ordered HCTZ F/U with cardiology as scheduled. Monitor BP at home and keep log. Plan Suspecting Rebound HTN due to sudden stop of Atenolol. Medications: New hydrochlorothiazide 25 mg PO DAILY 30 tabs 0RF I10 - Essential (primary) hypertension Coding Level of Care Code Est Pt Level 3 (82291) Diagnoses Hypertension, unspecified type I10 Hypertension type: unspecified Time Spent (min) 15
[2024-03-25 14:34] VITALS: BP 140/100; PULSE 90; O2SAT 99; BMI 42.4
== END 2024-03-25 15:02 | disposition home or self-care (01) ==
PROVIDERS: PCP Internal Medicine; Visit Provider Nurse Practitioner Family
DX: I10 Essential (primary) hypertension (principal)
CPT/HCPCS: 99213

== ENCOUNTER → 2024-04-01 14:52 | Outpatient (REF) | payer MEDICARE, MEDICAID, SELFPAY ==
--- NOTE | 2024-04-01 14:55 | CA_ITS ---
Transthoracic Echocardiogram Patient (Last, First, Middle): Jameel Gallardo C Gender: Male Date of : 1970 Age: 54 Procedure Date: 04/01/2024 Procedure Type: Transthoracic Echocardiogram Location: OP Height: 175.26 cm Weight: 127.01 kg BSA: 2.38 m2 Heart Rate: bpm BP: 137 / 84 mmHg Shopping Investigator: MIKY Referring MD: Anup Herrmann MD Symptoms: I44.1 - Atrioventricular block, second degree Study Quality: Technically Difficult, contrast ECG Rhythm: Sinus Conclusions: - The left ventricular systolic function is normal. The calculated ejection fraction is 66% by biplane method. - There is severe septal asymmetric hypertrophy. - There is mild calcification of the aortic valve. - There is moderate mitral annular calcification. - There is mild dilatation of the sinuses of Valsalva measuring 4.75 cm and no dilatation of the ascending aorta measuring 3.70 cm. Ascending aorta not well visualized. If clinically indicated, consider CTA. Findings Procedure Information Contrast agent, definity, is being given per protocol without apparent complications. Left Ventricle Normal left ventricular cavity size. The left ventricular systolic function is normal. The calculated ejection fraction is 66% by biplane method. There is no evidence of regional wall motion abnormalities. Evidence suggests grade I (mild) diastolic dysfunction. There is severe septal asymmetric hypertrophy. Right Ventricle Normal right ventricular cavity size and systolic function. Atria Both atria are normal in size. Aortic Valve The aortic valve was not well visualized. There is mild calcification of the aortic valve. There is no aortic valve stenosis. There is trace (trivial) aortic valve regurgitation. Mitral Valve There is moderate mitral annular calcification. There is no mitral valve regurgitation. There is no mitral valve stenosis. Pulmonic Valve The pulmonic valve was not well visualized. Tricuspid Valve There is trace tricuspid valve regurgitation. Tricuspid regurgitation envelope is inadequate for calculation of right ventricular systolic pressure. Great Vessels The aorta was not well visualized. There is mild dilatation of the sinuses of Valsalva measuring 4.75 cm and no dilatation of the ascending aorta measuring 3.70 cm. Venous The inferior vena cava was not well visualized. Pericardium/Pleural There is no evidence of pericardial effusion. Prior Study Comparison No significant change compared to prior study dated: 12/06/2021. Measurements 2D Linear Measurements IVSd: 1.79 0.6-0.9/0.6-1.0 cm LVIDd: 4.02 3.9-5.3/4.2-5.9 cm LVIDd Index: 1.69 2.4-3.2/2.2-3.1 cm/m2 LVIDs: 2.86 2.0-3.6 cm LVPWd: 1.06 0.7-1.1 cm LA Diam: 3.00 2.7-3.8/3.0-4.0 cm LAIDs Index: 1.26 1.5-2.3 cm/m2 LV Mass: 269.65 67-162/88-224 g LV Mass Index: 113.30 43-95/49-115 g/m2 LVOT Diam: 2.30 3.0+(-)1.3 cm 2D Systolic Function EF 4C: 67.10 >55% EF 2C: 63.70 >55% EF BiP: 65.80 >55% Mitral Valve MV Pk E: 0.82 MV PK A: 1.16 MV Decel Time: 187.00 E/A: 0.70 E'Lateral: 8.27 E'Medial: 4.79 E/E' Med: 17.10 E/E' Lat: 9.90 PHT: 55.00 MVA PHT: 4.00 Decel Wythe: 4.38 Aortic Valve AoV Pk Oskar: 1.83 AoV Mn Oskar: 1.38 AoV VTI: 0.37 AoV Pk Grad: 13.00 Aov Mn Grad: 8.00 JUANJO Cont.VTI: 2.26 LVOT LVOT Pk Oskar: 1.07 LVOT Mn Oskar: 0.72 LVOT VTI: 0.20 LVOT Pk Grad: 5.00 LVOT Mn Grad: 2.00 LVOT Diam: 2.30 LVOT Area: 4.15 Diastolic Function MV Pk E: 0.82 MV Pk A: 1.16 E/A: 0.70 E'Medial: 4.79 E/E' Med: 17.10 E' Laterial: 8.27 E/E' Lat: 9.90 Right Ventricle TAPSE (mm): 20.40 TVS' Oskar: 12.50 Great Vessels Aorta Sinus of Valsalva: 4.75 2.0-3.[address] [place]: 3.05 1.7-3.4 cm Ao Asc: 3.70 2.1-3.4 cm Updated in Other Vendor System with Status of Final Evin Nix MD electronically signed on 04/08/2024 10:16:25 AM with status of Final
== END ==
LOC: HO.CARD 14:52
PROVIDERS: PCP Internal Medicine; Visit Provider Internal Medicine Cardiovascular Disease
DX: I44.1 Atrioventricular block, second degree (principal); G47.33 Obstructive sleep apnea (adult) (pediatric); E78.5 Hyperlipidemia, unspecified
CPT/HCPCS: 93306; Q9957

== ENCOUNTER → 2024-04-01 14:55 | Outpatient (BNV) | payer MEDICARE, MEDICAID, SELFPAY | PROVIDERS: PCP Internal Medicine; Visit Provider Internal Medicine | DX: I44.1 Atrioventricular block, second degree (principal); I42.2 Other hypertrophic cardiomyopathy; I35.8 Other nonrheumatic aortic valve disorders | CPT/HCPCS: 93306 ==

== ENCOUNTER 2024-04-05 11:35 | Emergency (ER) | payer MEDICARE, MEDICAID, SELFPAY ==
--- NOTE | ~2024-04-05 | CT_ITS ---
EXAMINATION: CT ABDOMEN AND PELVIS WITH CONTRAST CLINICAL INFORMATION: Abdominal pain, nausea and vomiting COMPARISON: None available. TECHNIQUE: Multidetector volumetric images were obtained from the superior aspect of the liver through the pubic symphysis following administration 85 mL of Omnipaque 350 intravenous contrast. Sagittal and coronal reformatted images were obtained on the technologist's workstation. Oral contrast: No This CT examination was performed using dose optimization techniques as appropriate, variously including the following: *Automated exposure control *Adjustment of mA and/or kV according to patient size (this includes techniques or standardized protocols for targeted exams where dose is matched to indication/reason for exam; i.e. extremities or head) *Use of iterative reconstruction technique DLP: 1014 mGy-cm FINDINGS: LUNG BASES: The lung bases are clear . There is minimal atelectatic changes right lung base. Heart size is normal. Moderate mitral valve calcification seen. No pericardial or pleural effusion seen. LIVER, GALLBLADDER, AND BILIARY TREE: The liver is normal in size, shape, and attenuation. No focal hepatic lesion or biliary ductal dilatation is present. The gallbladder is unremarkable with no evidence of radiopaque gallstones, gallbladder wall thickening, or obvious pericholecystic inflammatory changes. PANCREAS: Unremarkable. SPLEEN: Unremarkable. ADRENAL GLANDS: Unremarkable. KIDNEYS AND URETERS: The kidneys are normal in size, shape, and attenuation. No hydronephrosis, hydroureter, or calculi seen. No perinephric stranding. BLADDER: Unremarkable. GASTROINTESTINAL TRACT: There is a large amount of stool seen throughout the colon without distention. The small bowel loops are normal caliber. There is mateo adjacent to cecum likely from previous appendectomy. The stomach is nondistended. ABDOMINAL WALL: Small umbilical hernia containing fat is noted. LYMPH NODES: Normal. VASCULAR: Unremarkable. PELVIC VISCERA: Unremarkable. OSSEOUS STRUCTURES: No aggressive lytic or sclerotic process seen. CT/CT abdomen pelvis w IV con IMPRESSION: 1. No acute intra-abdominal process seen. 2. Moderate constipation. Fleischner guidelines were followed. Electronically signed by: Junior Lora MD 04/05/2024 05:09 PM EDT
--- NOTE | ~2024-04-05 | XR_ITS ---
EXAMINATION: XR CHEST CLINICAL INFORMATION: Chest pain COMPARISON: Chest x-ray on 03/09/2024 TECHNIQUE: Frontal view of the chest was obtained. FINDINGS: No significant abnormality is noted involving the heart, lungs, mediastinum, bony thorax or soft tissues. XR/XR chest 1V IMPRESSION: Unremarkable examination. Electronically signed by: Tracie Bowser MD 04/05/2024 03:08 PM EDT RP
--- NOTE | 2024-04-05 11:36 | ECG_ITS ---
Test Reason : TACHYCARDIA Blood Pressure : / mmHG Vent. Rate : 105 BPM Atrial Rate : 105 BPM P-R Int : 222 ms QRS Dur : 078 ms QT Int : 338 ms P-R-T Axes : 045 -05 039 degrees QTc Int : 446 ms Sinus tachycardia with 1st degree A-V block Otherwise normal ECG When compared with ECG of 10-MAR-2024 07:36, Sinus rhythm is no longer with 2nd degree A-V block (Mobitz I) Vent. rate has increased BY 54 BPM QT has lengthened Referred By: Ava Blanton Electronically Signed By:BOB LOPEZ
[2024-04-05 11:48] VITALS: BP 140/97; PULSE 103; RESP 14; O2SAT 96; BMI 41.7
--- NOTE | 2024-04-05 11:56 | ED.ARRPALP ---
HPI - Arrhythmia/Palpitations General Chief Complaint: Arrhythmia/Palpitations Stated Complaint: rapid heart beat dizzy diff walking Time Seen by Provider: 04/05/24 11:42 Source: patient Mode of arrival: ambulatory Limitations: no limitations History of Present Illness HPI narrative: This is a very pleasant patient presented to the emergency department send palpitation denies any chest pain. He was evaluated by clinical quality manager on 03/10/2024 because 2-1 AV block, he was taken off atenolol and was given hydrochlorothiazide for his blood pressure. States that his heart rate was about 115 this morning. Denies syncope. He has history of type 2 diabetes, hypertension, morbid obesity sleep apnea MD complaint: heart racing Onset (ago): hour(s) (5) Duration: constant Severity: mild Context: occurred during rest Associated symptoms: denies other symptoms Related Data Home Medications ?Medication ?Instructions ?Recorded ?Confirmed cholecalciferol (vitamin D3) 25 25 mcg PO DAILY 03/09/24 03/13/24 mcg (1,000 unit) capsule (Vitamin D3) metformin 750 mg tablet,extended 1,500 mg PO DAILY 03/09/24 03/13/24 release 24 hr mineral oil-isopropyl myristat 1 appl topical DAILY 03/09/24 03/13/24 lotion tirzepatide 5 mg/0.5 mL 5 mg subcut SA 03/09/24 03/13/24 subcutaneous pen injector (Christel) Previous Rx's ?Medication ?Instructions ?Recorded blood-glucose meter (Kamcorduch #1 ea 06/02/21 Ultra2 Meter kit) lancing device with lancets kit #1 ea 06/03/21 (StockRadarTouch Delica Lancing Device kit) diphenhydramine HCl 25 mg capsule 50 mg (2 x 25 mg) PO Q6H PRN 10/04/21 (Benadryl) allergic reaction #20 caps lancets (StockRadarTouch UltraSoft #100 ea 07/19/22 Lancets) lancets 33 gauge (OneTouch Delica #100 ea 07/25/22 Lancets) CPAP (CPAP Machine/Device) #1 ea 08/24/22 blood sugar diagnostic (StockRadarTouch #100 ea 02/08/23 Ultra Test strips) simvastatin 40 mg tablet 40 mg PO DAILY #90 tabs 08/12/23 warfarin 7.5 mg tablet 7.5 mg PO DAILY #90 tabs 12/28/23 blood-glucose sensor (Dexcom G7 #2 ea 03/13/24 Sensor device) hydrochlorothiazide 25 mg tablet 25 mg PO DAILY #30 tabs 03/25/24 Allergies Allergy/AdvReac Type Severity Reaction Status Date / Time A & D Allergy Severe anaphylaxis Verified 04/05/24 11:50 bacitracin [BACITRACIN] Allergy Severe Verified 04/05/24 11:50 SEIZURE , anaphylaxis Sulfa (Sulfonamide Allergy Mild SWELLING Verified 04/05/24 11:50 Antibiotics) adhesive tape Allergy Rash Verified 04/05/24 11:50 dapagliflozin [From Farxiga] AdvReac Intermediate Abdominal Verified 04/05/24 11:50 Pain dulaglutide [From Trulicity] AdvReac Intermediate Diarrhea, Verified 04/05/24 11:50 vomiting lisinopril AdvReac Intermediate Dizziness Verified 04/05/24 11:50 SSRI AdvReac Intermediate DECREASE Uncoded 04/05/24 11:50 LIBIDO PMFSH Past Medical History Attestation statement: The following information was validated with the patient. Medical History Heart block AV second degree Vitamin B 12 deficiency Dizziness Annual physical exam Skin abnormalities STD (male) DM type 2 (diabetes mellitus, type 2) Venous (peripheral) insufficiency Obesity Hyperlipidemia PVD (peripheral vascular disease) Hypertension DVT (deep venous thrombosis) Factor 5 Leiden mutation, heterozygous SOB (shortness of breath) Surgical History Hx of esophagogastroduodenoscopy Hx of colonoscopy H/O vascular surgery Family History Family History Father CVD (cardiovascular disease) Mother CVD (cardiovascular disease) Daughter No problems noted. Son No problems noted. Social History Social History Household Members: Spouse and Significant Other Housing: House Are you a primary career resource specialist to a significant other at home: No Do you presently have visiting nurse or other home services: No Unable to assess alcohol history related to: Unknown Patient Tobacco Use Status: Former Tobacco user Tobacco use type: Cigarette Smoked in Last 30 Days: No e-Cigarette/Vaping Use: Never Used Second Hand Smoke Exposure: No (none) Use of substances other than those prescribed or required for medical reasons: No Advance Directives: No Advance Directives Information Provided: No service: No Current occupational status: employed Cognitive needs: No Hearing needs: No Vision needs: No Physical Exam Vital Signs: Vital Signs: Last Vital Signs Temp 98.5 F 04/05/24 14:00 Pulse 101 H 04/05/24 14:00 Resp 19 04/05/24 14:00 BP 147/96 H 04/05/24 14:00 Pulse Ox 95 04/05/24 14:00 O2 Del Method Room Air 04/05/24 14:00 BMI result Body Mass Index 41.7 He looks well he is not toxic-appearing he is lying comfortable in the stretcher Const: General: cooperative, comfortable and no acute distress Orientation/consciousness: patient oriented x3 Limitations: no limitations HEENT: Head: Yes normal to inspection General nose exam: Normal external nose present Neck: Neck: Yes normal visual inspection Resp: Effort & Inspection: normal respiratory effort Auscultation: clear to auscultation bilaterally Cardio: Jugular venous distension: no JVD Rate: regular rate Rhythm: regular rhythm GI: Inspection: Yes normal to inspection Palpation (GI): Soft to palpation, not firm, nontender and no guarding Auscultation: normal bowel sounds Skin: General skin exam: no rashes or lesions noted and elasticity normal Lesions: no lesions Rashes: no rashes Neuro: General: patient oriented x3 Course Reevaluation(s) Reevaluation #1: Vomited will give zofran ,no abdominal pain Time: 14:00 Reevaluation #2: The patient vomited several times at this point will do so CT scan of the abdomen and pelvis Time: 15:17 Reevaluation #3: Signed off to Dr Harris Time: 15:54 Medications Administered Discontinued Medications Generic Name Dose Route Start Last Admin Trade Name Freq PRN Reason Stop Dose Admin Sodium Chloride 1,000 mls @ 999 mls/hr 04/05/24 12:00 04/05/24 14:04 Ns IVCONT 04/05/24 13:00 Infused .Q1H1M MELISSA Infusion Sodium Chloride 1,000 mls @ 999 mls/hr 04/05/24 14:00 04/05/24 14:02 Ns IVCONT 04/05/24 15:00 999 mls/hr .Q1H1M MELISSA Administration Ondansetron HCl 4 mg 04/05/24 13:59 04/05/24 14:01 Ondansetron Hcl 4 Mg/2 Ml Vial IVPUSH 04/05/24 14:00 4 mg ONCE ONE Administration Medical Decision Making Medical Decision Making [facility] Narrative: Patient presented to the emergency department complaining of palpitation will check labs electrocardiogram Differential Diagnosis Differential Diagnoses: The differential diagnosis associated with the presentation includes Differential diagnosis SVT/AFib/sinus tachycardia Admission/Observation Consideration of admission/observation: Escalation of care including admission/observation considered Lab Data 04/05/24 12:04 04/05/24 13:15 Labs: Lab Results 04/05/24 04/05/24 04/05/24 Range/Units 12:04 12:04 13:15 WBC 10.6 (4.8-10.8) X10*3/uL RBC 5.36 (4.60-5.80) X10*6/uL Hgb 16.4 (14.0-18.0) g/dl Hct 47.6 (42.0-52.0) % MCV 88.8 (80.0-98.0) fL MCH 30.6 (27.0-33.0) pg MCHC 34.5 (31.0-36.0) g/dl RDW 12.8 (11.0-16.0) % Plt Count 259 D (160-400) X10*3/uL MPV 9.6 (9.4-12.4) fL Immature Gran % (Auto) 0.4 (0.0-0.4) % Neut % (Auto) 83.2 H (45-73) % Lymph % (Auto) 11.6 L (20-40) % [place] % (Auto) 4.0 (2-11) % Eos % (Auto) 0.4 (0-4) % Baso % (Auto) 0.4 (0-2) % Lymph # (Auto) 1.2 (1.2-4.9) X10*3/uL [place] # (Auto) 0.4 (0.1-1.2) X10*3/uL Eos # (Auto) 0.0 (0.0-0.4) X10*3/uL Baso # (Auto) 0.0 (0.0-0.2) X10*3/uL Abs Immat Gran (auto) 0.04 H (0.00-0.03) X10*3/uL Absolute Neuts (auto) 8.8 H (2.0-8.3) x10*3/uL Absolute Nucleated RBC 0.000 (0.0-0.012) X10*3/uL Nucleated RBC % (auto) 0.0 (0.0-0.2) /100WBC PT 26.6 H (11.1-13.3) SEC INR 2.2 H (0.9-1.1) D-Dimer High Sensitivty Cancelled < 150 Sodium 139 (135-145) mmol/L Potassium 4.1 (3.3-5.1) mmol/L Chloride 104 (96-108) mmol/L Carbon Dioxide 27 (22-29) mmol/L Anion Gap 12 (12-20) BUN 17 H (9-16) mg/dL Creatinine 0.95 (0.5-1.4) mg/dL Estim Creat Clear Calc 119.0 Estimated GFR > 60 Random Glucose 148 H (60-115) mg/dL Calcium 9.2 (8.4-10.2) mg/dL Total Bilirubin 0.6 (0.0-1.0) mg/dL AST 19 (5-37) U/L ALT 21 (0-40) U/L Alkaline Phosphatase 56 (39-117) U/L Troponin I High Sens < 2.7 (<3.5-35.0) ng/L Total Protein 7.3 (6.5-8.0) g/dL Albumin 3.9 (3.5-5.0) g/dL TSH 0.93 (0.32-4.0) uIU/mL Independent Interpretation I performed an independent interpretation of an: EKG (EKG was reviewed interpreted by me as sinus rhythm rate 105 no ischemic changes) Discharge Plan Discharge Clinical Impression: Palpitation Vomiting Qualifiers: Vomiting type: unspecified Nausea presence: with nausea Qualified Code(s): R11.2 - Nausea with vomiting, unspecified Patient Disposition: Still a Patient Prescriptions: No Action (DME) blood-glucose meter [OneTouch Ultra2 Meter] Kit See Rx Instructions .Route Qty: 1 0RF Rx Instructions: As directed (DME) lancing device with lancets [OneTouch Delica Lanc Device] Kit See Rx Instructions .Route Qty: 1 0RF Rx Instructions: testing blood sugar once daily (DME) lancets [OneTouch Delica Lancets] 33 gauge misc See Rx Instructions .Route Qty: 100 3RF Rx Instructions: test blood sugar daily (DME) CPAP Machine/Device Device See Rx Instructions .Route Qty: 1 0RF Rx Instructions: auto PAP 6-20 cm with heated humidification with needed supplies (DME) OneTouch Ultra Test Strip See Rx Instructions .Route Qty: 100 3RF Rx Instructions: test blood sugar once a day simvastatin 40 mg tablet 40 mg PO DAILY Qty: 90 3RF warfarin 7.5 mg tablet 7.5 mg PO DAILY Qty: 90 1RF diphenhydramine HCl [Benadryl] 25 mg capsule 50 mg PO Q6H PRN (Reason: allergic reaction) Qty: 20 0RF cholecalciferol (vitamin D3) [Vitamin D3] 25 mcg (1,000 unit) Capsule 25 mcg PO DAILY mineral oil-isopropyl myristat Lotion 1 appl TOPICAL DAILY metformin 750 mg tablet extended release 24 hr 1,500 mg PO DAILY Mounjaro 5 mg/0.5 mL pen injector 5 mg subcut SA (DME) lancets [OneTouch UltraSoft Lancets] [facility] [place] Rx Instructions .ROUTE .MEDSUPPLY Qty: 100 6RF Rx Instructions: TID (DME) Dexcom G7 Sensor Device See Rx Instructions .Route Qty: 2 2RF Rx Instructions: As directed hydrochlorothiazide 25 mg tablet 25 mg PO DAILY Qty: 30 0RF Print Language: [place]
[2024-04-05 12:10] LABS: MANUAL DIFF FLAG NO
[2024-04-05] MEDS: 0.9 % Sodium Chloride 1,000 ML 999 ML IVCONT ×2 (12:14→14:02)
--- NOTE | 2024-04-05 12:18 | PC.NURSE ---
patient arrives from home through external traige, states he woke up and felt like his heart was racing and states he had the sensation of palpitations. patient states he recently had an electrocardiogram and is awaiting the results, patient states he was feeling shortness of breath, states his blood pressure at home was in the 180s which is high for him, was recently told to stop taking his atenolol and start taking hydrochlorothiazide. patient denies any recent sick contacts, denies chest pain or shortness of breath at this time, no excess swelling noted to extremities. patient slightly tachycardic upon assessment at a rate of 105, assessment otherwise unremarkable, LSCTA, S1&S2 appreciated upon ausucultation. normoactive BS present in all four quadrants. patient remains on cone examiner, EKG completed and shown to provider, 20G PIV placed in right forearm. blood work drawn and sent to lab. patient to xray at this time. call patel place within reach. all safety maintianed
[2024-04-05 12:20] LABS: Basophils Percent Auto 0.4 % (0-2); Eosinophils Percent Auto 0.4 % (0-4); Hematocrit 47.6 % (42.0-52.0); Hemoglobin 16.4 g/dl (14.0-18.0); Imm Gran Abs Auto 0.04 X10*3/uL (0.00-0.03); Imm Gran Pct Auto 0.4 % (0.0-0.4); Lymphocytes Absolute Auto 1.2 X10*3/uL (1.2-4.9); Lymphocytes Percent Auto 11.6 % (20-40); Mean Corpuscular HGB Conc 34.5 g/dl (31.0-36.0); Mean Corpuscular Hemoglobin 30.6 pg (27.0-33.0); Mean Corpuscular Volume 88.8 fL (80.0-98.0); Mean Platelet Volume 9.6 fL (9.4-12.4); Monocytes Absolute Auto 0.4 X10*3/uL (0.1-1.2); Neutrophils Absolute Auto 8.8 x10*3/uL (2.0-8.3); Neutrophils Percent Auto 83.2 % (45-73); Platelet Count 259 X10*3/uL (160-400); Red Blood Count 5.36 X10*6/uL (4.60-5.80); Red Cell Distribution Width 12.8 % (11.0-16.0); White Blood Count 10.6 X10*3/uL (4.8-10.8)
[2024-04-05 12:33] LABS: INTERNATIONAL NORM RATIO 2.2 (0.9-1.1); Prothrombin Time 26.6 SEC (11.1-13.3)
[2024-04-05 12:38] LABS: D Dimer High Sensitivity < 150 NG/ML
[2024-04-05 12:53] LABS: Troponin-I High Sensitivity < 2.7 ng/L (<3.5-35.0)
[2024-04-05 13:05] LABS: Thyroid Stimulating Hormone 0.93 uIU/mL (0.32-4.0)
[2024-04-05 13:55] LABS: Alanine Aminotransferase 21 U/L (0-40); Albumin Level 3.9 g/dL (3.5-5.0); Alkaline Phosphatase 56 U/L (39-117); Anion Gap 12 (12-20); Aspartate Amino Transferase 19 U/L (5-37); Bilirubin Total 0.6 mg/dL (0.0-1.0); Blood Urea Nitrogen 17 mg/dL (9-16); Calcium 9.2 mg/dL (8.4-10.2); Carbon Dioxide 27 mmol/L (22-29); Chloride 104 mmol/L (96-108); Estimated Glomerular Filt Rate > 60; Glucose Random 148 mg/dL (60-115); Potassium 4.1 mmol/L (3.3-5.1); Sodium 139 mmol/L (135-145); Total Protein 7.3 g/dL (6.5-8.0)
[2024-04-05 14:00] VITALS: BP 147/96; PULSE 101; RESP 19; TEMP 36.9; O2SAT 95
[2024-04-05] MEDS: ondansetron HCL 4 MG/2 ML VIAL IVPUSH (14:01)
[2024-04-05 16:00] VITALS: BP 151/96; PULSE 100; RESP 12; TEMP 37.2; O2SAT 97
[2024-04-05] MEDS: iohexoL 350 MG/ML 100 ML INFUS..BTL IV (16:08)
--- NOTE | 2024-04-05 16:50 | PC.NURSE ---
patient refusing reglan at this time, states to this RN if theres something in me i want to get it out
[2024-04-05 18:00] VITALS: BP 142/95; PULSE 99; RESP 10; TEMP 37.7; O2SAT 99
--- NOTE | 2024-04-05 19:42 | PC.NURSE ---
Provider with pt. Pt ca&ox4, no signs of distress. Pts family at bedside. Plan of care ongoing.
[2024-04-05 20:22] VITALS: BP 141/92; PULSE 102; RESP 14; TEMP 37.3; O2SAT 97
== END 2024-04-05 20:25 | disposition home or self-care (01) ==
PROVIDERS: Emergency Medicine; Emergency Provider Emergency Medicine Emergency Medical Services; PCP Internal Medicine
DX: R00.2 Palpitations (principal); R11.2 Nausea with vomiting, unspecified; E11.9 Type 2 diabetes mellitus without complications; I10 Essential (primary) hypertension; E78.5 Hyperlipidemia, unspecified; I44.1 Atrioventricular block, second degree; G47.33 Obstructive sleep apnea (adult) (pediatric); Z99.89 Dependence on other enabling machines and devices; Z86.718 Personal history of other venous thrombosis and embolism; Z87.891 Personal history of nicotine dependence; Z79.84 Long term (current) use of oral hypoglycemic drugs; Z79.899 Other long term (current) drug therapy; Z79.01 Long term (current) use of anticoagulants; Z79.02 Long term (current) use of antithrombotics/antiplatelets
CPT/HCPCS: 36415; 71045; 74177; 80053; 84443; 84484; 85025; 85379; 85610; 93005; 96361; 96374; 96375; 99284; 99285; J2405; Q9967

== ENCOUNTER 2024-04-10 02:06 | Emergency (ER) | payer MEDICARE, MEDICAID, SELFPAY ==
[2024-04-10 02:31] VITALS: BP 140/89; BP 144/104; PULSE 100; PULSE 98; RESP 16; TEMP 36.7; O2SAT 96; O2SAT 97; BMI 41.2
[2024-04-10 02:37] VITALS: BP 140/89; PULSE 100; RESP 16; TEMP 36.7; O2SAT 92
--- OUTSIDE RECORDS SUMMARY | 2024-04-10 02:40 | XMS_ITS | Continuity of Care Document ---
Author Organization [facility] Care Address [address] [place] [address]- Care Team Providers Care Inspector Weights And Measures Name Role Phone Esha Corbin MD Primary Care Phys[id number] Date(s): 01/16/23 - 02/21/[facility] [address] [place] [address]- Attending Physician: Giovanni VARELA, Annette Napoles Admitting Physician: Giovanni VARELA, Annette Napoles Allergies, Adverse Reactions, Alerts Substance Reaction Severity Status doxycycline Active Protective Ointment with Vitamins A&D Active sulfamethoxazole Active bacitracin Bacitracin measurement Activ e Aquaphor Active Immunizations Given and Recorded Vaccine Date Status Refusal Reason tetanus-diphtheria toxoids (Td) 05/06/10 Given Medications atenolol 25 mg oral tablet 25 mg, 1, tablet, By Mouth, Daily, # 30 tablet, Refills 0, Maintenance, 10/27/15 8:51:37 Start Date: 10/27/15 Status: Ordered Benadryl 25 mg oral capsule 1 capsule = 25 mg, By Mouth, 3 times a day, PRN for allergy symptoms, # 30 capsule, 0 Refills, Maintenance, 06/16/16 9:02:32, Capsule Start Date: 06/16/16 Status: Ordered betamethasone topical dipropionate 0.05% cream 1 application, Topically, 2 times a day, Apply thin layer to red rash twice per day. Rub in well. Use for up to 14 days and then discontinue., # 45 Gm, 0 Refills, Acute 02/28/23 9:00:00 EDT, 02/15/2312:04:00 EDT, Cream, [id number], Partial fi... Start Date: 02/14/23 Stop Date: 02/28/23 Status: Ordered clobetasol 0.05% topical cream 1 application, Topically, Daily, use with high quality skin cream, focus on the ankle area apply a thin film, # 30 Gm, 6 Refills, Maintenance, 06/25/17 8:30:00, Cream, 1 application Topically Daily,Instr:use with high quality skin cream, focus on th... Start Date: 06/25/17 Status: Ordered Coumadin 7.5 mg oral tablet See Instructions, Take 1 tablet and a half By Mouth on Sunday and one tablet all the other days., #30 tablet, 5 Refills, Maintenance, Tablet Start Date: 07/04/12 Status: Ordered Fish Oil 1200 mg oral capsule 1 capsule = 1,200 mg, By Mouth, 2 times a day, 0 Refills, Maintenance, 01/12/15 15:47:24 Start Date: 01/12/15 Status: Ordered metFORMIN 850 mg oral tablet 1 tablet = 850 mg, By Mouth, 2 times a day, 0 Refills, Maintenance, 02/04/18 13:09:47 EDT Start Date: 02/04/18 Status: Ordered simvastatin 40 mg oral tablet 40 mg, 1, tablet, By Mouth, Daily at bedtime, Refills 0, Maintenance, 02/04/18 13:10:27 EDT Start Date: 02/04/18 Status: Ordered Vitamin D3 By Mouth, 1000mg daily, 0 Refills, Maintenance, 01/12/15 15:49:45 Start Date: 01/12/15 Status: Ordered Problem List Condition Confirmation Course Effective Dates Status H ealth Status Informant Ankle ulcer Confirmed Active Ankle ulcer Confirmed Active Cellulitis Confirmed Active Chronic Venous Hypertension with Ulcer Confirmed Active Leg ulcer Confirmed Active Open wnd of foot Confirmed Active Ulcer Confirmed Active Venous hypertension Confirmed Active Venous hypertension, chronic, with inflammation Confirmed Active Venous insufficiency Confirmed Active Social History Social History Type Response Smoking Status Former smoker entered on: 04/22/15 Sex Patient Care team information Care Team Personnel Name: Esha Corbin MD Position: [facility] Physician - Primary Care Member Role: PCP Address: Address: [address] [place] [address]- Care Team Related Persons Name: DUNCAN SALAS Address: home [address] [place] [address] Name: ALEA LALA Address: home [address] [place] [address] Name: CARLOS LALA
--- OUTSIDE RECORDS SUMMARY | 2024-04-10 02:41 | XMS_ITS | Continuity of Care Document ---
Author Organization [facility] Address [address] [place] [address]- Care Team Providers Care Gre Instructor Name Role Phone Esha Corbin MD Primary Care Physician Encounter [facility] Date(s): 06/13/23 - 07/13/23 [facility] [address] [place] [address]- Attending Physician: Kala Barry Admitting Physician: AdmtrKala Referring Physician: AdmtrKala Allergies, Adverse Reactions, Alerts Substance Reaction Severity Status doxycycline Active Aquaphor Active Protective Ointment with Vitamins A&D Active sulfamethoxazole Active bacitracin Bacitracin measurement Activ e Immunizations Given and Recorded Vaccine Date Status [...] 9:02:32, Capsule Start Date: 06/16/16 Status: Ordered clobetasol 0.05% topical cream 1 [...] Corbin MD Position: [facility] Physician - Primary Care Member Role: PCP Address: Address: [address] [place] [address]- Care Team Related Persons Name: DUNCAN SALAS Address: [address] [place] [address] Name: ALEA LALA Address: home [address] [place] [address] Name: CARLOS LALA
--- OUTSIDE RECORDS SUMMARY | 2024-04-10 02:41 | XMS_ITS | Continuity of Care Document ---
Author Organization [facility] Address [address] [place] [address]- Care Team Providers Care Home Care Rn Name Role Phone Esha Corbin MD Primary Care Physician Encounter [facility] Date(s): 08/28/23 - 09/04/23 [facility] [address] [place] [address]- Attending Physician: Niharika Spencer NP Admitting Physician: Niharika Spencer NP Allergies, Adverse Reactions, Alerts Substance Reaction Severity Status doxycycline Active sulfamethoxazole Active bacitracin Bacitracin measurement Activ e Aquaphor Active Protective Ointment with Vitamins A&D Active Immunizations Given and Recorded Vaccine Date [...] Active Open wnd of foot Confirmed Active Severe obesity Confirmed Active Ulcer Confirmed Active Chronic venous hypertension (idiopathic) with other complications of right lower extremity Confirmed Active Chronic venous hypertension (idiopathic) with other complications of left lower extremity Confirmed Active Vital Signs Most recent to oldest [Reference Range]: 1 Height 177.8 cm (08/28/23 11:28 AM) Weight 140.90 kg (08/28/23 11:28 AM) Oxygen Saturation [94-100 %] 99 % (08/28/23 11:28 AM) Pulse Rate [55-90 bpm] 68 bpm (08/28/23 11:28 AM) Body Mass Index [18.5-24.99 kg/m2] 44.57 kg/m2 *>HHI* (08/28/23 11:28 AM) Blood Pressure [90-138/55-84 mm Hg] 118/ 72mm Hg (08/28/23 11:28 AM) Blood pressure sites Arm, left (08/28/23 11:28 AM) Weight Obtained Via Patient/family state d (08/28/23 11:28 AM) Social History Social History Type Response Smoking Status Former smoker, quit more than 30 days ago; Other: 2 ppd x20 yrs, quit 12/2010; entered on: 08/14/23 Sex Note * Jonathan Mcdonough: PERFORM, SIGN, VERIFY Event Display: Patient Education/Instruction Authored Date: [id number] [facility] *[facility] [address] Clinical Summary Name BOUCHRA LALA Age 53 Years 1970 PCP Esha Corbin MD PCP Visit Date 08/28/2023 10:47:00 Additional Instructions: Scheduled Appointments?? Future Appointments ?*[facility]S[address]??[place],??[place],??[address] ?Phone:??--?Fax:??-- ?Appt. Date:??09/04/2023?11:15 AM ?Scheduled Provider:??Tj BALE TIE MACHINE OPERATOR , Niharika B ?*[address]??[place],??[place],??[address] ?Phone:??--?Fax:??-- ?Appt. Date:??09/11/2023?9:15 AM ?Scheduled Provider:??Tj BALE TIE MACHINE OPERATOR , Niharika B ?*[facility]S[address]??[place],??[place],??[address] ?Phone:??--?Fax:??-- ?Appt. Date:??09/18/2023?11:15 AM ?Scheduled Provider:??Niharika Spencer NP Follow-Up Instructions ?? With: Address: When: Niharika Spencer NP Comments: weekly wound checks and unna boot changes Diagnosis Medications: Please continue your medications until treatment is completed or stopped by your provider. Discuss any questions related to medications with your provider. Medications to Continue with No Changes These medications were not printed or sent to your pharmacy Atenolol (atenolol 25 mg oral tablet) 1 tab(s) Oral Daily. Next Dose: Cholecalciferol (Vitamin D3) Oral. 1000mg daily. Next Dose: Clobetasol Topical (clobetasol 0.05% topical cream) 1 lars Topically Daily. use with high quality skin cream, focus on the ankle area apply a thin film. Refills: 6. Next Dose: DiphenhydrAMINE (Benadryl 25 mg oral capsule) 1 capsule Oral 3 times a day as needed for allergy symptoms. Next Dose: Metformin (metFORMIN 850 mg oral tablet) 1 tab(s) Oral twice a day. Next Dose: [place]-3 Polyunsaturated Fatty Acids (Fish Oil 1200 mg oral capsule) 1 capsule Oral twice a day. Next Dose: Simvastatin (simvastatin 40 mg oral tablet) 1 tab(s) Oral Daily at Bedtime. Next Dose: Warfarin (Coumadin 7.5 mg oral tablet) Take 1 tablet and a half By Mouth on Sunday and one tablet all the other days.. Refills: 5. Next Dose: Allergy Info:?? Protective Ointment with Vitamins A&D; Aquaphor; bacitracin; sulfamethoxazole; doxycycline Medications Given This Visit Future Orders ?No future orders Vital Signs Height 177.8 cm Weight 140.90 kg BMI 44.57 kg/m2 Blood Pressure 118 mm Hg/72 mm Hg Temperature Pulse Rate 68 bpm Respiratory Rate 02 Sat Mode of Delivery 99 %/ You can now view a summary of your hospital visit from the comfort of your home through a free online portal called [employer] Web. [employer] is a website that allows you to securely view your medical information including discharge summary, medications and follow-up visits. ??You can alsosend a secure electronic message to your doctor???s office to request appointments, renew medications or just ask a question. You can enroll at [email or web address] or register during your next office visit. Disclaimer:?? The information provided is of a general nature and is intended to be used in conjunction with the recommendations and advice of your health care practitioner. ??Every effort has been made to ensure that the information provided is accurate and complete at the time it is provided to you however, as your needs change, or, as new ??information becomes available, different or additional instructions may be required. If you have questions, please consult with your primary care provider or pharmacist, as appropriate. ??This information is not intended to serve as substitution for assessment and evaluation by a qualified health care provider. If you do not have a primary care provider, you may find a [facility] provider by calling [facility] [employer] Link at [phone]. [facility], in keeping with [facility] guidance, no longer requires face masks for staff, patientsor visitors in most situations. Similar to time spent indoors at other locations, there is the chance that you were exposed to respiratory viruses during your time with us (such as flu or COVID-19).? If you develop symptoms concerning for a viral respiratory infection, please seek testing (and treatment if indicated) from your medical provider or home test kit. For information about the plan of care including goals and instructions for your diagnosis, please see the patient education orders section of this document. Patient Education Materials?? The content of this educational material or handout may have been modified, supplemented, or adapted from its original content and format to support your individualized medical care. Patient Care team information Care Team Personnel Name: Esha Corbin MD Position: [facility] Physician - Primary Care Member Role: PCP Address: Address: [address] [place], [place] - Care Team Related Persons Name: DUNCAN SALAS Address: home [address] [place] [address] Name: ALEA LALA Address: home [address] [place] [address] Name: CARLOS LALA
--- OUTSIDE RECORDS SUMMARY | 2024-04-10 02:41 | XMS_ITS | Continuity of Care Document ---
Author Organization [facility] Address [address] [place] [address]- Care Team Providers Care Web Solutions Architect Name Role Phone Esha Corbin MD Primary Care Physician [phone] [id number] Date(s): 08/21/23 - 08/28/23 [facility] [address] [place] [address]- Attending Physician: Niahrika Spencer NP Admitting Physician: Niharika Spencer NP [...] oldest [Reference Range]: 1 Height 177.8 cm (08/21/23 1:28 PM) Weight 140.90 kg (08/21/23 1:28 PM) Oxygen Saturation [94-100 %] 98 % (08/21/23 1:28 PM) Pulse Rate [55-90 bpm] 64 bpm (08/21/23 1:28 PM) Body Mass Index [18.5-24.99 kg/m2] 44.57 kg/m2 *>HHI* (08/21/23 1:28 PM) Blood Pressure [90-138/55-84 mm Hg] 124/ 72mm Hg (08/21/23 1:28 PM) Blood pressure sites Arm, right (08/21/23 1:28 PM) Weight Obtained Via Patient/family state d (08/21/23 1:28 PM) Social History Social History Type Response Smoking Status Former smoker, quit more than 30 days ago; Other: 2 ppd x20 yrs, quit 12/2010; entered on: 08/14/23 Sex Note * Ava Kamara: PERFORM, SIGN, VERIFY Event Display: Patient Education/Instruction Authored Date: [id number] [facility] *[facility]S [address] Clinical Summary Name BOUCHRA LALA Age 53 Years 1970 PCP Esha Corbin MD PCP Visit Date 08/21/2023 13:01:00 Additional Instructions: Scheduled Appointments?? Future Appointments ?*BVS[address]??[place],??[place],??[address] ?Phone:??--?Fax:??-- ?Appt. Date:??08/28/2023?11:15 AM ?Scheduled Provider:??Tj TAPE KELLER OPERATOR , Niharika B ?*BVS[address]??[place],??[place],??[address] ?Phone:??--?Fax:??-- ?Appt. Date:??09/04/2023?11:15 AM ?Scheduled Provider:??Tj TAPE KELLER OPERATOR , Niharika B ?*BVS[address]??[place],??[place],??[address] ?Phone:??--?Fax:??-- ?Appt. Date:??09/11/2023?9:15 AM ?Scheduled Provider:??Niharika Spencer NP ?*BVS[address]??[place],??[place],??[address] ?Phone:??--?Fax:??-- ?Appt. Date:??09/18/2023?11:15 AM ?Scheduled Provider:??Niharika Spencer NP Follow-Up Instructions ?? With: Address: When: Niharika Spencer NP Comments: 1 week??[facility] please schedule weekly??visits (1 time per week)?? unna boot Diagnosis Medications: Please continue your medications until [...] tab(s) Oral twice a day. Next Dose: [place]-3 Polyunsaturated Fatty Acids (Fish Oil 1200 mg [...] 140.90 kg BMI 44.57 kg/m2 Blood Pressure 124 mm Hg/72 mm Hg Temperature Pulse Rate 64 bpm Respiratory Rate 02 Sat Mode of Delivery 98 %/ You can now view a summary of your hospital visit from the comfort of your home through a free online portal called [employer]ertech. [employer] is a website that allows you to securely view your medical information including discharge summary, medications and follow-up visits. ??You can alsosend a secure electronic message to your doctor???s office to request appointments, renew medications or just ask a question. You can enroll at [email or web address] or register during your next office visit. [...] primary care provider, you may find a [facility] provider by calling [facility] [employer] Link at [phone]. [facility], in keeping with [facility] guidance, no longer requires face masks [...] Team Personnel Name: Esha Corbin MD Position: S Physician - Primary Care Member Role: PCP Address: Address: [address] [place], [place] - [place] Care Team Related Persons Name: DUNCAN SALAS Address: home [address] [place], [place] Name: ALEA LALA Address: [address] [place] [address] Name: CARLOS LALA
--- OUTSIDE RECORDS SUMMARY | 2024-04-10 02:41 | XMS_ITS | Continuity of Care Document ---
Author Organization [facility] Address [address] [place] [address]- Care Team Providers Care Cmv Driver Name Role Phone Esha Corbin MD Primary Care Physician [phone] [facility] [facility] Date(s): 08/14/23 - 09/13/23 [facility] [address] [place], [place] [address] Attending Physician: Kala Barry Admitting Physician: AdmKala snell Referring Physician: AdmtrKala Allergies, Adverse Reactions, Alerts [...] complications of left lower extremity Confirmed Active Social History Social History Type Response Smoking Status Former smoker, quit more than 30 days ago; Other: 2 ppd x20 yrs, quit 12/2010; entered on: 08/14/23 Sex Patient Care team information Care Team Personnel Name: Esha Corbin MD Position: [facility] Physician - Primary Care Member Role: PCP Address: Address: [address] [place] [address]- Care Team Related Persons Name: DUNCAN SALAS Address: home [address] [place] [address] Name: ALEA LALA Address: home [address] [place] [address] Name: CARLOS LALA
--- OUTSIDE RECORDS SUMMARY | 2024-04-10 02:41 | XMS_ITS | Continuity of Care Document ---
Author Organization [facility] Address [address] [place] [address]- Care Team Providers Care Soap Inspector Name Role Phone Esha Corbin MD Primary Care [id number] Date(s): 10/03/23 - 10/10/23 [facility] [address] [place] [address]- Attending Physician: Niharika Spencer NP Admitting Physician: [...] Most recent to oldest [Reference Range]: 1 2 Height 177.8 cm (10/03/23 8:38 AM) 177.8 cm (10/03/23 7:49 AM) Weight 139.54 kg (10/03/23 7:49 AM) Oxygen Saturation [94-100 %] 98 % (10/03/23 7:49 AM) Pulse Rate [55-90 bpm] 75 bpm (10/03/23 7:49 AM) Body Mass Index [18.5-24.99 kg/m2] 44.14 kg/m2 *>HHI* (10/03/23 7:49 AM) Blood Pressure [90-138/55-84 mm Hg] 130/ 86mm Hg (10/03/23 8:38 AM) 148/98mm Hg *H* (10/03/23 7:49 AM) Mode of Delivery (Oxygen) Room air (10/03/23 7:49 AM) Blood pressure sites Arm, left (10/03/23 8:38 AM) Arm, left (10/03/23 7:49 AM) Weight Obtained Via Patient/family state d (10/03/23 7:49 AM) Social History Social History Type Response Smoking Status Former smoker, quit more than 30 days ago entered on: 08/14/23 Sex Note * Jonathan Mcdonough: PERFORM, SIGN, VERIFY Event Display: Patient Education/Instruction Authored Date: [id number] [facility] *[facility] [address] Clinical Summary Name BOUCHRA LALA Age 53 Years 1970 PCP Emerald SANDOVAL, Esha PCP Visit Date 10/03/2023 07:33:00 Additional Instructions: Scheduled Appointments?? Future Appointments ?*BVS[address]??[place],??[place],??[address] ?Phone:??--?Fax:??-- ?Appt. Date:??10/09/2023?9:45 AM ?Scheduled Provider:??Tj PRODUCTION ENGINEER TRACK , Inharika B ?*BVS[address]??[place],??[place],??[address] ?Phone:??--?Fax:??-- ?Appt. Date:??10/17/2023?10:45 AM ?Scheduled Provider:??Jt PRODUCTION ENGINEER TRACK , Niharika B ?*BVS[address]??[place],??[place],??[address] ?Phone:??--?Fax:??-- ?Appt. Date:??10/22/2023?7:15 AM ?Scheduled Provider:??Niharika Spencer NP ?*BVS[address],??[place],??[address] ?Phone:??--?Fax:??-- ?Appt. Date:??10/30/2023?7:15 AM ?Scheduled Provider:??Niharika Spencer NP Follow-Up Instructions ?? With: Address: When: Niharika Spencer NP 01/04/2023 12:00 AM Comments: 1 time weekly visits may schedule several weeks ahead Wound check and Unna boot change??left leg Diagnosis Medications: Please continue your medications until [...] tab(s) Oral twice a day. Next Dose: [place]-3 Polyunsaturated Fatty Acids (Fish Oil 1200 mg [...] orders Vital Signs Height 177.8 cm Weight 139.54 kg BMI 44.14 kg/m2 Blood Pressure 148 mm Hg/98 mm Hg Temperature Pulse Rate 75 bpm Respiratory Rate 02 Sat Mode of Delivery 98 %/Room air You can now view a summary of your hospital visit from the comfort of your home through a free online portal called Uny[employer]e. Unyqe is a website that allows you to securely view your medical information including discharge summary, medications and follow-up visits. ??You can alsosend a secure electronic message to your doctor???s office to request appointments, renew medications or just ask a question. You can enroll at [email or web address] or register during your next office visit. [...] primary care provider, you may find a [facility] provider by calling [facility] [employer] at [phone]. [facility], in keeping with [facility] guidance, no longer requires face masks [...] Team Personnel Name: Esha Corbin MD Position: [facility] Physician - Primary Care Member Role: PCP Address: Address: [address] [place], [place] - [place] Care Team Related Persons Name: DUNCAN SALAS Address: home [address] [place] [address] Name: ALEA LALA Address: home [address] [place] [address] Name: CARLOS LALA
--- OUTSIDE RECORDS SUMMARY | 2024-04-10 02:41 | XMS_ITS | Continuity of Care Document ---
Author Organization [facility] Address [address] [place] [address]- Care Team Providers Care Associate Loan Officer Name Role Phone Esha Corbin MD Primary Care Physician Encounter [facility] Date(s): 09/18/23 - 09/25/23 [facility] [address] [place] [address]- Attending Physician: Niharika Spencer NP Admitting Physician: [...] oldest [Reference Range]: 1 Height 177.8 cm (09/18/23 11:20 AM) Weight 141 kg (09/18/23 11:20 AM) Oxygen Saturation [94-100 %] 98 % (09/18/23 11:20 AM) Pulse Rate [55-90 bpm] 80 bpm (09/18/23 11:20 AM) Body Mass Index [18.5-24.99 kg/m2] 44.6 kg/m2 *>HHI* (09/18/23 11:20 AM) Blood pressure sites Arm, left (09/18/23 11:20 AM) Weight Obtained Via Patient/family state d (09/18/23 11:20 AM) Social History Social History Type Response Smoking Status Former smoker, quit more than 30 days ago; Other: 2 ppd x20 yrs, quit 12/2010; entered on: 08/14/23 Sex Note * Kamara , Ava: PERFORM, SIGN, VERIFY Event Display: Patient Education/Instruction Authored Date: [id number] [facility] *BVS [address] Clinical Summary Name BOUCHRA LALA Age 53 Years 1970 PCP Esha Corbin MD PCP Visit Date 09/18/2023 10:56:00 Additional Instructions: Scheduled Appointments?? Future Appointments ?*BVS[address]??[place],??[place],??[address] ?Phone:??--?Fax:??-- ?Appt. Date:??09/25/2023?9:45 AM ?Scheduled Provider:??Tj SEISMOGRAPH OPERATOR HELPER , Niharika B ?*BVS[address]??[place],??[place],??[address] ?Phone:??--?Fax:??-- ?Appt. Date:??10/02/2023?11:15 AM ?Scheduled Provider:??Tj SEISMOGRAPH OPERATOR HELPER , Niharika B ?*BVS[address]??[place],??[place],??[address] ?Phone:??--?Fax:??-- ?Appt. Date:??10/09/2023?9:45 AM ?Scheduled Provider:??Niharika Spencer NP ?*BVS[address]??[place],??[place],??[address] ?Phone:??--?Fax:??-- ?Appt. Date:??10/17/2023?10:45 AM ?Scheduled Provider:??Niharika Spencer NP Follow-Up Instructions ?? With: Address: When: Niharika Spencer NP Comments: 1 time weekly DF unna boot changes With: Address: When: Niharika Spencer NP Diagnosis Medications: Please continue your medications until [...] tab(s) Oral twice a day. Next Dose: [place]-3 Polyunsaturated Fatty Acids (Fish Oil 1200 mg [...] orders Vital Signs Height 177.8 cm Weight 141 kg BMI 44.6 kg/m2 Blood Pressure / Temperature Pulse Rate 80 bpm Respiratory Rate 02 Sat Mode of Delivery 98 %/ You can now view a summary of your hospital visit from the comfort of your home through a free online portal called [employer]. [employer] is a website that allows you to securely view your medical information including discharge summary, medications and follow-up visits. ??You can alsosend a secure electronic message to your doctor???s office to request appointments, renew medications or just ask a question. You can enroll at [email or web address] or register during your next office [...] primary care provider, you may find a [facility] provider by calling [facility] Link at [phone]. [facility], in keeping with [facility] guidance, no longer requires face masks [...] Team Personnel Name: Esha Corbin MD Position: [facility] Physician - Primary Care Member Role: PCP Address: Address: [address] [place], [place] Care Team Related Persons Name: DUNCAN SALAS Address: home [address] [place], [place] Name: ALEA LALA Address: home [address] [place] [address] Name: CARLOS LALA
--- OUTSIDE RECORDS SUMMARY | 2024-04-10 02:41 | XMS_ITS | Continuity of Care Document ---
Author Organization [facility] Address [address] [place] [address]- Care Team Providers Care Engravings Polisher Name Role Phone Esha Corbin MD Primary Care Physician [phone] Encounter [facility] Date(s): 09/11/23 - 09/18/23 [facility] [address] [place] [address]- Attending Physician: Niharika Spencer NP Admitting Physician: [...] oldest [Reference Range]: 1 Height 177.8 cm (09/11/23 9:17 AM) Weight 140.90 kg (09/11/23 9:17 AM) Oxygen Saturation [94-100 %] 98 % (09/11/23 9:17 AM) Pulse Rate [55-90 bpm] 88 bpm (09/11/23 9:17 AM) Body Mass Index [18.5-24.99 kg/m2] 44.57 kg/m2 *>HHI* (09/11/23 9:17 AM) Blood Pressure [90-138/55-84 mm Hg] 118/ 80mm Hg (09/11/23 9:17 AM) Mode of Delivery (Oxygen) Room air (09/11/23 9:17 AM) Blood pressure sites Arm, left (09/11/23 9:17 AM) Social History Social History Type Response Smoking Status Former smoker, quit more than 30 days ago; Other: 2 ppd x20 yrs, quit 12/2010; entered on: 08/14/23 Sex Note * Jonathan Mcdonough: PERFORM, SIGN, VERIFY Event Display: Patient Education/Instruction Authored Date: [id number] [facility] *BVS [address] Clinical Summary Name BOUCHRA LALA Age 53 Years 1970 PCP Emerald SANDOVAL, Esha PCP Visit Date 09/11/2023 09:07:00 Additional Instructions: Scheduled Appointments?? Future Appointments ?*BVS??[address] ?[address]??[place],??[place],??[address] ?Phone:??--?Fax:??-- ?Appt. Date:??09/18/2023?11:15 AM ?Scheduled Provider:??Niharika Spencer NP ?*BVS[address]??[place],??[place],??[address] ?Phone:??--?Fax:??-- ?Appt. Date:??09/25/2023?9:45 AM ?Scheduled Provider:??Niharika Spencer NP Follow-Up Instructions ?? With: Address: When: Niharika Spencer NP Comments: one week and weekly OVH wound check and unna??boot Diagnosis Medications: Please continue your medications until [...] tab(s) Oral twice a day. Next Dose: [place]-3 Polyunsaturated Fatty Acids (Fish Oil 1200 mg [...] BMI 44.57 kg/m2 Blood Pressure 118 mm Hg/80 mm Hg Temperature Pulse Rate 88 bpm Respiratory Rate 02 Sat Mode of Delivery 98 %/Room air You can now view a summary of your hospital visit from the comfort of your home through a free online portal called [employer]. [employer] is a website that allows you to securely view your medical information including discharge summary, medications and follow-up visits. ??You can alsosend a secure electronic message to your doctor???s office to request appointments, renew medications or just ask a question. You can enroll at [email or web address] or register during your next office visit. [...] primary care provider, you may find a [facility] [place] provider by calling [facility] [employer] Link at [phone]. [facility] [place], in keeping with [facility] [...] Team Personnel Name: Esha Corbin MD Position: [facility] Physician - Primary Care Member Role: PCP Address: Address: [address] [place] [address]- Care Team Related Persons Name: MARITZA DUNCAN Address: home [address] [place] [address] Name: ALEA LALA Address: home [address] [place] [address] Name: CARLOS LALA
--- OUTSIDE RECORDS SUMMARY | 2024-04-10 02:41 | XMS_ITS | Continuity of Care Document ---
Author Organization [facility] Address [address] [place] [address]- Care Team Providers Care Mustanger Name Role Phone Esha Corbin MD Primary Care Physician [place] [id number] Date(s): 10/09/23 - 10/16/23 [facility] [address] [place] [address]- Attending Physician: Niharika Spencer NP Admitting Physician: Niharika Spencer NP Referring Physician: Anum Barreto Allergies, Adverse Reactions, Alerts Substance Reaction Severity [...] [Reference Range]: 1 2 Height 177.8 cm (10/09/23 11:07 AM) 177.8 cm (10/09/23 9:58 AM) Weight 138.18 kg (10/09/23 9:58 AM) Oxygen Saturation [94-100 %] 96 % (10/09/23 9:58 AM) Pulse Rate [55-90 bpm] 86 bpm (10/09/23 9:58 AM) Body Mass Index [18.5-24.99 kg/m2] 43.71 kg/m2 *>HHI* (10/09/23 9:58 AM) Blood Pressure [90-138/55-84 mm Hg] 130/ 60mm Hg (10/09/23 11:07 AM) 150/100mm Hg *H* (10/09/23 9:58 AM) Mode of Delivery (Oxygen) Room air (10/09/23 9:58 AM) Blood pressure sites Arm, left (10/09/23 11:07 AM) Arm, left (10/09/23 9:58 AM) Weight Obtained Via Patient/family state d (10/09/23 9:58 AM) Social History Social History Type Response Smoking Status Former smoker, quit more than 30 days ago entered on: 08/14/23 Sex Note * Ava Kamara: SIGN, VERIFY, PERFORM Event Display: Patient Education/Instruction Authored Date: [id number] [facility] *BVS [address] Clinical Summary Name BOUCHRA LALA Age 53 Years 1970 PCP Emerald SANDOVAL, Esha PCP Visit Date 10/09/2023 09:40:00 Additional Instructions: Scheduled Appointments?? Future Appointments ?*BVS??[address] ?[address]??[place],??[place],??[address] ?Phone:??--?Fax:??-- ?Appt. Date:??10/17/2023?10:45 AM ?Scheduled Provider:??Niharika Spencer NP ?*BVS??[address]??[place],??[place],??[address] ?Phone:??--?Fax:??-- ?Appt. Date:??10/22/2023?7:15 AM ?Scheduled Provider:??Niharika Spencer NP ?*BVS??[address]??[place],??[place],??[address] ?Phone:??--?Fax:??-- ?Appt. Date:??10/30/2023?7:15 AM ?Scheduled Provider:??Niharika Spencer NP Follow-Up Instructions ?? With: Address: When: Niharika Spencer NP Comments: 1 time weekly unna boot change /wound check lars Diagnosis Medications: Please continue your medications until [...] tab(s) Oral twice a day. Next Dose: [place]-3 Polyunsaturated Fatty Acids (Fish Oil 1200 mg [...] orders Vital Signs Height 177.8 cm Weight 138.18 kg BMI 43.71 kg/m2 Blood Pressure 150 mm Hg/100 mm Hg Temperature Pulse Rate 86 bpm Respiratory Rate 02 Sat Mode of Delivery 96 %/Room air You can now view a summary of your hospital visit from the comfort of your home through a free online portal called [employer]. [employer] is a website that allows you to securely view your medical information including discharge summary, medications and follow-up visits. ??You can alsosend a secure electronic message to your doctor???s office to request appointments, renew medications or just ask a question. You can enroll at [email or web address] or register during your next office visit. [...] primary care provider, you may find a [facility] provider by calling [facility] SET at [phone]. [facility], in keeping with [facility] guidance, no longer requires face masks for [...] Team Personnel Name: Esha Corbin MD Position: [facility] Physician - Primary Care Member Role: PCP Address: Address: [address] [place], [place] - [place] Care Team Related Persons Name: DUNCAN SALAS Address: home [address] [place] [address] Name: ALEA LALA Address: home [address] [place] [address] Name: CRALOS LALA
--- OUTSIDE RECORDS SUMMARY | 2024-04-10 02:41 | XMS_ITS | Continuity of Care Document ---
Author Organization [facility] Address [address] [place] [address]- Care Team Providers Care Roofing Contractor Name Role Phone Esha Corbin MD Primary Care Physician [place] [facility] Date(s): 10/17/23 - 10/24/23 [facility] [address] [place] [address]- Attending Physician: Niharika Spencer NP Admitting Physician: Niharika Spencer NP Referring Physician: Esha Corbin MD Allergies, Adverse Reactions, Alerts Substance Reaction Severity [...] oldest [Reference Range]: 1 Height 177.8 cm (10/17/23 10:55 AM) Weight 138.18 kg (10/17/23 10:55 AM) Oxygen Saturation [94-100 %] 97 % (10/17/23 10:55 AM) Pulse Rate [55-90 bpm] 84 bpm (10/17/23 10:55 AM) Body Mass Index [18.5-24.99 kg/m2] 43.71 kg/m2 *>HHI* (10/17/23 10:55 AM) Blood Pressure [90-138/55-84 mm Hg] 122/ 80mm Hg (10/17/23 10:55 AM) Blood pressure sites Arm, right (10/17/23 10:55 AM) Social History Social History Type Response Smoking Status Former smoker, quit more than 30 days ago entered on: 08/14/23 Sex Patient Care team information Care Team Personnel Name: Esha Corbin MD Position: S Physician - Primary Care Member Role: PCP Address: Address: [address] [place] [address]- Care Team Related Persons Name: SALAS DUNCAN Address: home [address] [place] [address] Name: ALEA LALA Address: home [address] [place] [address] Name: CARLOS LALA
--- OUTSIDE RECORDS SUMMARY | 2024-04-10 02:41 | XMS_ITS | Continuity of Care Document ---
Author Organization [facility] Address [address] [place] [address]- Care Team Providers Care Editor Map Name Role Phone Esha Corbin MD Primary Care Physician [id number] Date(s): 12/28/22 - 02/02/23 [facility] [address] [place] [address]- Attending Physician: Giovanni VARELA, Annette Napoles Admitting [...] 13:09:47 EDT Start Date: 02/04/18 Status: Ordered Silvadene 1% cream 1 application, Topically, Daily, Apply thin layer to open portion of burn on right medial calf daily. Wash off old Silvadene before applying new., # 50 Gm, 0 Refills, Acute 02/05/23 8:48:00 EDT, 01/22/23 8:46:00 EDT, Cream, [id number], [place]... Start Date: 01/22/23 Stop Date: 02/05/23 Status: Ordered simvastatin 40 mg oral tablet [...] Name: Esha Corbin MD Position: [facility] Physician - Primary Care Member Role: PCP Address: Address: [address] [place] [address]- Care Team Related Persons Name: DUNCAN SALAS Address: home [address] [place], [place] Name: ALEA LALA Address: [address] [place] [address] Name: CARLOS LALA
--- OUTSIDE RECORDS SUMMARY | 2024-04-10 02:41 | XMS_ITS | Continuity of Care Document ---
Author Organization [facility] Address [address] [place] [address]- Care Team Providers Care Healthcare Risk Control Consultant Name Role Phone Esha Corbin MD Primary Care Physician [phone] [id number] Date(s): 03/30/23 - 05/04/23 [facility] [address] [place] [address] Attending Physician: Hemal Trimble MD Admitting Physician: Hemal Trimble MD Allergies, Adverse Reactions, Alerts Substance Reaction [...] Team Personnel Name: Esha Corbin MD Position: [facility] Physician - Primary Care Member Role: PCP Address: Address: [address] [place] [address]- Care Team Related Persons Name: DUNCAN SALAS Address: home [address] [place], [place] Name: ALEA LALA Address: home [address] [place] [address] Name: CARLOS LALA
--- OUTSIDE RECORDS SUMMARY | 2024-04-10 02:41 | XMS_ITS | Continuity of Care Document ---
Author Organization [facility] Address [address] [place] [address]- Care Team Providers Care Chargeback Analyst Name Role Phone Esha Corbin MD Primary Care Physician [phone] Encounter [facility] Date(s): 10/03/23 - 11/21/23 [facility] [address] [place] [address]- Encounter Diagnosis Chronic venous hypertension (idiopathic) with other complications of right lower extremity(Discharge Diagnosis) - 10/22/23 Chronic venous hypertension (idiopathic) with ulcer of left lower extremity (Discharge Diagnosis) - 10/22/23 Attending Physician: Pearl Clemons NP Admitting Physician: Pearl Clemons NP Referring Physician: Esha Corbin MD Allergies, Adverse Reactions, Alerts Substance Reaction Severity Status doxycycline Active bacitracin Bacitracin measurement Activ e Protective Ointment with Vitamins A&D Active sulfamethoxazole Active Aquaphor Active Immunizations Given and Recorded Vaccine [...] complications of left lower extremity Confirmed Active Diagnosis Diagnosis Type Effective Dates Health Status Clinical Service Informant Chronic venous hypertension (idiopathic) with other complications of right lower extremity Discharge Diagnosis 10/22/23 Chronic venous hypertension (idiopathic) with ulcer of left lower extremity Discharge Diagnosis 10/22/23 Social History Social History Type Response Smoking Status Former smoker, quit more than 30 days ago entered on: 08/14/23 Sex Patient Care team information Care Team Personnel Name: Esha Corbin MD Position: S Physician - Primary Care Member Role: PCP Address: Address: [address] [place] [address]- Care Team Related Persons Name: DUNCAN SALAS Address: home [address] [place] [address] Name: ALEA LALA Address: home [address] [place] [address] Name: CARLOS LALA
--- OUTSIDE RECORDS SUMMARY | 2024-04-10 02:41 | XMS_ITS | Continuity of Care Document ---
Author Organization [facility] Address [address] [place] [address]- Care Team Providers Care Stem Assembler Name Role Phone Esha Corbin MD Primary Care Physician [phone] [place] [facility] Date(s): 06/19/23 - 07/29/23 [facility] [address] [place] [address]- Attending Physician: Michael Souza MD Admitting Physician: Michael Souza MD Allergies, Adverse Reactions, Alerts Substance Reaction Severity Status doxycycline Active sulfamethoxazole Active Aquaphor Active Protective Ointment with Vitamins A&D Active bacitracin Bacitracin measurement Activ e Immunizations [...] of foot Confirmed Active Ulcer Confirmed Active Chronic venous hypertension (idiopathic) with other complications of right lower extremity Confirmed Active Chronic venous hypertension (idiopathic) with other complications of left lower extremity Confirmed Active Social History Social History Type Response Smoking Status Former smoker entered on: 04/22/15 Sex Patient Care team information Care Team Personnel Name: Esha Corbin MD [facility] Physician - Primary Care Member Role: PCP Address: Address: [address] [place] [address]- Care Team Related Persons Name: DUNCAN SALAS Address: home [address] [place], [place] Name: ALEA LALA Address: home [address] [place] [address] Name: CARLOS LALA
--- OUTSIDE RECORDS SUMMARY | 2024-04-10 02:42 | XMS_ITS | Continuity of Care Document ---
Author Organization [facility] Address [address] [place] [address]- Care Team Providers Care Importer Or Exporter Name Role Phone Esha Corbin MD Primary Care Physician [phone] [facility] [id number] Date(s): 04/04/23 - 05/04/23 [facility] [address] [place] [address] Attending Physician: Kala Barry Admitting Physician: AdmKala snell Referring Physician: Admtr, ArUrvashi Allergies, Adverse Reactions, Alerts Substance Reaction Severity [...] Care Member Role: PCP Address: Address: [address] [place] [address]- Care Team Related Persons Name: DUNCAN SALAS Address: home [address] [place] [address] Name: ALEA LALA Address: home [address] [place] [address] Name: CARLOS LALA
--- OUTSIDE RECORDS SUMMARY | 2024-04-10 02:42 | XMS_ITS | Continuity of Care Document ---
Author Organization [facility] Address [address] [place] [address]- Care Team Providers Care Knitter Mechanic Name Role Phone Esha Corbin MD Primary Care Physician [facility] [id number] Date(s): 09/25/23 - 11/02/23 [facility] [address] [place] [address]- Attending Physician: Niharika Spencer NP Admitting Physician: [...] Team Personnel Name: Esha Corbin MD Position: [facility] Physician - Primary Care Member Role: PCP Address: Address: [address] [place] [address]- Care Team Related Persons Name: DUNCAN SALAS Address: home [address] [place] [address] Name: ALEA LALA Address: home [address] [place] [address] Name: CARLOS LALA
--- OUTSIDE RECORDS SUMMARY | 2024-04-10 02:42 | XMS_ITS | Continuity of Care Document ---
Author Organization [facility] Address [address] [place] [address]- Care Team Providers Care Spud Driller Name Role Phone Esha Corbin MD Primary Care Physician [place] [facility] [place](s): 10/17/23 - 12/06/23 [facility] [address] [place], [place] [address] Attending Physician: Pearl Clemons NP Admitting Physician: [...] Team Personnel Name: Esha Corbin MD Position: [facility] Physician - Primary Care Member Role: PCP Address: Address: [address] [place], [place] - Care Team Related Persons Name: DUNCAN SALAS Address: home [address] [place] [address] Name: ALEA LALA Address: home [address] [place] [address] Name: CARLOS LALA
--- OUTSIDE RECORDS SUMMARY | 2024-04-10 02:42 | XMS_ITS | Continuity of Care Document ---
Author Organization [facility] Address [address] [place] [address]- Care Team Providers Care Electrical Installation Supervisor Name Role Phone Esha Corbin MD Primary Care Physician [facility] Date(s): 11/13/23 - 11/20/23 [facility] [address] [place], [place] [address] Attending Physician: Niharika Spencer NP Admitting Physician: [...] oldest [Reference Range]: 1 Height 177.8 cm (11/13/23 11:08 AM) Weight 131.81 kg (11/13/23 11:08 AM) Oxygen Saturation [94-100 %] 98 % (11/13/23 11:08 AM) Pulse Rate [55-90 bpm] 72 bpm (11/13/23 11:08 AM) Body Mass Index [18.5-24.99 kg/m2] 41.7 kg/m2 *>HHI* (11/13/23 11:08 AM) Blood Pressure [90-138/55-84 mm Hg] 130/ 72mm Hg (11/13/23 11:08 AM) Blood pressure sites Arm, left (11/13/23 11:08 AM) Weight Obtained Via Patient/family state d (11/13/23 11:08 AM) Social History Social History Type Response Smoking Status Former smoker, quit more than 30 days ago entered on: 08/14/23 Sex Note * Ava Kamara: PERFORM, SIGN, VERIFY Event Display: Patient Education/Instruction Authored Date: [id number] [facility] *BVS [address] Clinical Summary Name BOUCHRA LALA Age 53 Years 1970 PCP Esha Corbin MD PCP Visit Date 11/13/2023 10:45:00 Additional Instructions: Scheduled Appointments?? Future Appointments ?*BVS??[address]??[place],??[place],??[address] ?Phone:??--?Fax:??-- ?Appt. Date:??12/05/2023?11:15 AM ?Scheduled Provider:??Niharika Spencer NP Follow-Up Instructions ?? Diagnosis Medications: Please continue your medications until [...] tab(s) Oral twice a day. Next Dose: [place]-3 Polyunsaturated Fatty Acids (Fish Oil 1200 mg [...] This Visit Future Orders ?No future orders Future Orders ?No future orders Vital Signs Height 177.8 cm Weight 131.81 kg BMI 41.7 kg/m2 Blood Pressure 130 mm Hg/72 mm Hg Temperature Pulse Rate 72 bpm Respiratory Rate 02 Sat Mode of Delivery 98 %/ You can now view a summary of your hospital visit from the comfort of your home through a free online portal called [employer]. [employer] is a website that allows you to securely view your medical information including discharge summary, medications and follow-up visits. ??You can alsosend a secure electronic message to your doctor???s office to request appointments, renew medications or just ask a question. You can enroll at [email or web address] or register during your next [...] primary care provider, you may find a [facility] provider by calling [facility] Link at [phone]. [facility], in keeping with [facility] guidance, no longer requires face [...] Team Personnel Name: Esha Corbin MD Position: [facility] Physician - Primary Care Member Role: PCP Address: Address: [address] [place], [place] - Care Team Related Persons Name: DUNCAN SALAS Address: home [address] [place], [place] Name: ALEA LALA Address: home [address] [place] [address] Name: CARLOS LALA
--- OUTSIDE RECORDS SUMMARY | 2024-04-10 02:42 | XMS_ITS | Continuity of Care Document ---
Author Organization Wound Care Address [address] [place] [address]- Care Team Providers Care Systems Auditor Name Role Phone Esha Corbin MD Primary Care Physician [phone] [id number] - 03/02/23 Wound Care [address] [place] [address]- Attending Physician: Giovanni VARELA, Annette Napoles Admitting [...] Care Member Role: PCP Address: Address: [address] [place] [address]- Care Team Related Persons Name: DUNCAN SALAS Address: home [address] [place] [address] Name: ALEA LALA Address: home [address] [place] [address] Name: CARLOS LLAA
--- OUTSIDE RECORDS SUMMARY | 2024-04-10 02:42 | XMS_ITS | Continuity of Care Document ---
Author Organization [facility] Se rv[facility] Address [address] [place] [address]- Care Team Providers Care Stem Roller Name Role Phone Esha Corbin MD Primary Care Physician [facility] [id number] Date(s): 09/25/23 - 10/02/23 [facility] Services [address] [place] [address]- Attending Physician: Niharika Spencer NP Admitting Physician: [...] oldest [Reference Range]: 1 Height 177.8 cm (09/25/23 10:25 AM) Weight 141 kg (09/25/23 10:25 AM) Oxygen Saturation [94-100 %] 97 % (09/25/23 10:25 AM) Pulse Rate [55-90 bpm] 79 bpm (09/25/23 10:25 AM) Body Mass Index [18.5-24.99 kg/m2] 44.6 kg/m2 *>HHI* (09/25/23 10:25 AM) Blood Pressure [90-138/55-84 mm Hg] 122/ 82mm Hg (09/25/23 10:25 AM) Blood pressure sites Arm, left (09/25/23 10:25 AM) Weight Obtained Via Patient/family state d (09/25/23 10:25 AM) Social History Social History Type Response Smoking Status Former smoker, quit more than 30 days ago; Other: 2 ppd x20 yrs, quit 12/2010; entered on: 08/14/23 Sex Note * Jonathan Mcdonough: PERFORM, SIGN, VERIFY Event Display: Patient Education/Instruction Authored Date: [id number] [facility] *BVS [address] Clinical Summary Name BOUCHRA LALA Age 53 Years 1970 PCP Esha Corbin MD PCP Visit Date 09/25/2023 09:36:00 Additional Instructions: Scheduled Appointments?? Future Appointments ?*BVS[address]??[place],??[place],??[address] ?Phone:??--?Fax:??-- ?Appt. Date:??10/02/2023?11:15 AM ?Scheduled Provider:??Tj SITE SUPERVISING TECHNICAL OPERATOR , Nihariak B ?*BVS[address]??[place],??[place],??[address] ?Phone:??--?Fax:??-- ?Appt. Date:??10/09/2023?9:45 AM ?Scheduled Provider:??Tj SITE SUPERVISING TECHNICAL OPERATOR , Niharika B ?*BVS[address]??[place],??[place],??[address] ?Phone:??--?Fax:??-- ?Appt. Date:??10/17/2023?10:45 AM ?Scheduled Provider:??Niharika Spencer NP Follow-Up Instructions ?? With: Address: When: Niharika Spencer NP Comments: OVH 1 time per week??unna boot changes wound check Diagnosis Medications: Please continue your medications until [...] tab(s) Oral twice a day. Next Dose: [place]-3 Polyunsaturated Fatty Acids (Fish Oil 1200 mg [...] 141 kg BMI 44.6 kg/m2 Blood Pressure 122 mm Hg/82 mm Hg Temperature Pulse Rate 79 bpm Respiratory Rate 02 Sat Mode of Delivery 97 %/ You can now view a summary of your hospital visit from the comfort of your home through a free online portal called Deskarma. Deskarma is a website that allows you to securely view your medical information including discharge summary, medications and follow-up visits. ??You can alsosend a secure electronic message to your doctor???s office to request appointments, renew medications or just ask a question. You can enroll at [email or web address] or register during your next office visit. [...] primary care provider, you may find a [facility] provider by calling [facility] WOO Sports Link at [phone]. [facility], in keeping with [facility] guidance, no longer requires face masks [...] Team Personnel Name: Esha Corbin MD Position: [facility] Physician - Primary Care Member Role: PCP Address: Address: [address] [place], [place] - Care Team Related Persons Name: DUNCAN SALAS Address: home [address] [place] [address] Name: ALEA LALA Address: home [address] [place] [address] Name: CARLOS LALA
--- OUTSIDE RECORDS SUMMARY | 2024-04-10 02:42 | XMS_ITS | Continuity of Care Document ---
Author Organization Wound Care Address [address] [place] [address]- Care Team Providers Care Elevator Inspector Name Role Phone Esha Corbin MD Primary [facility] Phys[id number] - 05/04/23 Wound Care [address] [place] [address]- Attending Physician: Hemal Trimble MD Admitting Physician: Hemal Trimble MD Referring Physician: Esha Corbin MD Allergies, Adverse [...] Team Personnel Name: Esha Corbin MD Position: [facility] Physician - Primary Care Member Role: PCP Address: Address: [address] [place] [address]- Care Team Related Persons Name: DUNCAN SALAS Address: home [address] [place] [address] Name: ALEA LALA Address: home [address] [place] [address] Name: CARLOS LALA
--- OUTSIDE RECORDS SUMMARY | 2024-04-10 02:42 | XMS_ITS | Continuity of Care Document ---
Author Organization Wound Care Address [address] [place] [address]- Care Team Providers Care Rehabilitation Supervisor Name Role Phone Esha Corbin MD Primary Care Physician Encounter [facility] Date(s): 08/10/23 - 09/12/23 Wound Care [address] [place] [address] Attending Physician: Hemal Trimble MD Admitting Physician: [...] Team Personnel Name: Esha Corbin MD Position: [facility] Physician - Primary Care Member Role: PCP Address: Address: [address] [place] [address]- Care Team Related Persons Name: DUNCAN SALAS Address: [address] [place] [address] Name: ALEA LALA Address: [address] [place] [address] Name: CARLOS LALA
--- OUTSIDE RECORDS SUMMARY | 2024-04-10 02:42 | XMS_ITS | Continuity of Care Document ---
Author Organization [facility] Se rv[facility] Address [address] [place] [address]- Care Team Providers Care Tariff Expert Name Role Phone Esha Corbin MD Primary Care Physician [place] [facility] Date(s): 10/31/23 - 11/07/23 [facility] Services [address] [place] [address]- Encounter Diagnosis Venous stasis ulcer of left ankle(Discharge Diagnosis) - 10/31/23 Attending Physician: Pearl Clemons NP Admitting Physician: [...] Diagnosis Diagnosis Type Effective Dates Health Status Cl inical Service Informant Venous stasis ulcer of left ankle Discharge Diagnosis 10/31/23 Vital Signs Most recent to oldest [Reference Range]: 1 Height 177.8 cm (10/31/23 9:24 AM) Oxygen Saturation [94-100 %] 98 % (10/31/23 9:24 AM) Pulse Rate [55-90 bpm] 67 bpm (10/31/23 9:24 AM) Blood Pressure [90-138/55-84 mm Hg] 90/7 0mm Hg (10/31/23 9:24 AM) Blood pressure sites Arm, left (10/31/23 9:24 AM) Weight Obtained Via Patient/family state d (10/31/23 9:24 AM) Social History Social History Type Response Smoking Status Former smoker, quit more than 30 days ago entered on: 08/14/23 Sex Note * Ava Kamara: PERFORM, SIGN, VERIFY Event Display: Patient Education/Instruction Authored Date: [id number] [facility] *BVS [address] Clinical Summary Name BOUCHRA LALA Age 53 Years 1970 PCP Esha Corbin MD PCP Visit Date 10/31/2023 09:04:00 Additional Instructions: Scheduled Appointments?? Future Appointments ?*BVS??[address]??[place],??[place],??[address] ?Phone:??--?Fax:??-- ?Appt. Date:??11/06/2023?2:30 PM ?Scheduled Provider:??Deonte VARELA, Pearl ?*BVS??[address]??[place],??[place],??[address] ?Phone:??--?Fax:??-- ?Appt. Date:??11/12/2023?11:15 AM ?Scheduled Provider:??Tj VARELA , Niharika Woo ?*BVS??[address]??[place],??[place],??[address] ?Phone:??--?Fax:??-- ?Appt. Date:??11/19/2023?11:15 AM ?Scheduled Provider:??Niharika Spencer NP Follow-Up Instructions ?? With: Address: When: Pearl Clemons NP In 1 week Comments: keep appointment with me next week Diagnosis Medications: Please continue your medications until [...] tab(s) Oral twice a day. Next Dose: [place]-3 Polyunsaturated Fatty Acids (Fish Oil 1200 mg [...] orders Vital Signs Height 177.8 cm Weight BMI Blood Pressure 90 mm Hg/70 mm Hg Temperature Pulse Rate 67 bpm Respiratory Rate 02 Sat Mode of Delivery 98 %/ You can now view a summary of your hospital visit from the comfort of your home through a free online portal called ComptTIA. ComptTIA is a website that allows you to securely view your medical information including discharge summary, medications and follow-up visits. ??You can alsosend a secure electronic message to your doctor???s office to request appointments, renew medications or just ask a question. You can enroll at [email or web address] or register during your next office visit. [...] primary care provider, you may find a [facility] provider by calling [facility] TellApart Link at [phone]. [facility], in keeping with [facility] guidance, no longer requires face masks [...] Team Personnel Name: Esha Corbin MD Position: [facility] Physician - Primary Care Member Role: PCP Address: Address: [address] [place], [place] - Care Team Related Persons Name: DUNCAN SALAS Address: home [address] [place] [address] Name: ALEA LALA Address: home [address] [place] [address] Name: CARLOS LALA
--- OUTSIDE RECORDS SUMMARY | 2024-04-10 02:42 | XMS_ITS | Continuity of Care Document ---
Author Organization [facility] Wound Care Address [address] [place] [address]- Care Team Providers Care Dog Day Care Attendant Name Role Phone Esha Corbin MD Primary Care Physician Encounter [facility] Date(s): 07/31/23 - 08/30/23 [facility] Wound Care [address] [address] [phone] Attending Physician: Kala Barry Admitting Physician: AdmtrKala [...] Team Personnel Name: Esha Corbin MD Position: [facility] Physician - Primary Care Member Role: PCP Address: Address: [address] [place] [address]- Care Team Related Persons Name: DUNCAN SALAS Address: home [address] [place] [address] Name: ALEA LALA Address: home [address] [place] [address] Name: CARLOS LALA
--- OUTSIDE RECORDS SUMMARY | 2024-04-10 02:42 | XMS_ITS | Continuity of Care Document ---
Author Organization [facility] Medicine Address [address] [place] [address]- Care Team Providers Care Cook Cold Meat Name Role Phone Esha Corbin MD Primary Care Physician Encounter [facility] Date(s): 06/29/23 - 07/29/[address] [address]- Attending Physician: Kala Barry Admitting Physician: AdmKala [...] skin cream, focus on th... Start Date: 11/20/17 Status: Ordered Coumadin 7.5 mg oral tablet [...] Esha Corbin MD Position: [facility] Physician - Primary Care Member Role: PCP Address: Address: [address] [place] [address]- Care Team Related Persons Name: DUNCAN SALAS Address: home [address] [place] [address] Name: ALEA LALA Address: home [address] [place] [address] Name: CARLOS LALA
--- OUTSIDE RECORDS SUMMARY | 2024-04-10 02:42 | XMS_ITS | Continuity of Care Document ---
Author Organization [facility] Vascular Se rvices Address [address] [place] [address]- Care Team Providers Care Pouncing Machine Operator Name Role Phone Esha Corbin MD Primary Care Physician [place] [facility] Date(s): 09/04/23 - 09/11/23 [facility] V[facility] Services [address] [place], [place] [address] Attending Physician: Niharika Spencer NP Admitting Physician: [...] oldest [Reference Range]: 1 Height 177.8 cm (09/04/23 11:02 AM) Weight 140.90 kg (09/04/23 11:02 AM) Oxygen Saturation [94-100 %] 98 % (09/04/23 11:02 AM) Pulse Rate [55-90 bpm] 72 bpm (09/04/23 11:02 AM) Body Mass Index [18.5-24.99 kg/m2] 44.57 kg/m2 *>HHI* (09/04/23 11:02 AM) Blood Pressure [90-138/55-84 mm Hg] 132/ 74mm Hg (09/04/23 11:02 AM) Blood pressure sites Arm, right (09/04/23 11:02 AM) Weight Obtained Via Patient/family state d (09/04/23 11:02 AM) Social History Social History Type Response Smoking Status Former smoker, quit more than 30 days ago; Other: 2 ppd x20 yrs, quit 12/2010; entered on: 08/14/23 Sex Note * Jonathan Mcdonough: PERFORM, SIGN, VERIFY Event Display: Patient Education/Instruction Authored Date: [id number] [facility] *BVS [address] Clinical Summary Name BOUCHRA LALA Age 53 Years 1970 PCP Esha Corbin MD PCP Visit Date 09/04/2023 10:44:00 Additional Instructions: Scheduled Appointments?? Future Appointments ?*BVS??[address]??[place],??[place],??[address] ?Phone:??--?Fax:??-- ?Appt. Date:??09/11/2023?9:15 AM ?Scheduled Provider:??Tj TUNNEL MAN , Niharika B ?*BVS??[address]??[place],??[place],??[address] ?Phone:??--?Fax:??-- ?Appt. Date:??09/18/2023?11:15 AM ?Scheduled Provider:??Tj TUNNEL MAN , Niharika B ?*BVS??[address]??[place],??[place],??[address] ?Phone:??--?Fax:??-- ?Appt. Date:??09/25/2023?9:45 AM ?Scheduled Provider:??Niharika Spencer NP Follow-Up Instructions ?? With: Address: When: Niharika Spencer NP Comments: left lower extremity venous ulcer follow??up weekly (patient may need to make more weekly visits??if he only has 1 left) Diagnosis Medications: Please continue your medications until [...] tab(s) Oral twice a day. Next Dose: [place]-3 Polyunsaturated Fatty Acids (Fish Oil 1200 mg [...] 140.90 kg BMI 44.57 kg/m2 Blood Pressure 132 mm Hg/74 mm Hg Temperature Pulse Rate 72 bpm Respiratory Rate 02 Sat Mode of Delivery 98 %/ You can now view a summary of your hospital visit from the comfort of your home through a free online portal called SendinBlue. SendinBlue is a website that allows you to securely view your medical information including discharge summary, medications and follow-up visits. ??You can alsosend a secure electronic message to your doctor???s office to request appointments, renew medications or just ask a question. You can enroll at [email or web address] or register during your next office visit. [...] primary care provider, you may find a [facility] provider by calling [facility] GROU.PS Link at [phone]. [facility], in keeping with [facility] guidance, no longer requires face masks [...] Care Member Role: PCP Address: Address: [address] [place], [place] - [place] Care Team Related Persons Name: DUNCAN SALAS Address: home [address] [place] [address] Name: ALEA LALA Address: home [address] [place] [address] Name: CARLOS LALA
--- OUTSIDE RECORDS SUMMARY | 2024-04-10 02:42 | XMS_ITS | Continuity of Care Document ---
Author Organization Wound Care Address [address] [place] [address]- Care Team Providers Care Superintendent Laundry Name Role Phone Esha Corbin MD Primary Care Physician [phone] Encounter [facility] [id number] Date(s): 12/13/22 - 01/18/[address]ound [address] [place] [address]- Attending Physician: Hemal Trimble MD Admitting Physician: [...] Care Member Role: PCP Address: Address: [address] [place] [address]- Care Team Related Persons Name: ALEA LALA Address: home [address] [place] [address] Name: CARLOS LALA
--- OUTSIDE RECORDS SUMMARY | 2024-04-10 02:42 | XMS_ITS | Continuity of Care Document ---
Author Organization [facility] Vascular Se rvices Address [address] [place] [address]- Care Team Providers Care Global Implementation Manager Name Role Phone Esha Corbin MD Primary Care Physician En[place] [facility] [id number] Date(s): 09/18/23 - 11/01/23 [facility] Vascular Services [address] [place] [address]- Attending Physician: Niharika Spencer NP Admitting Physician: [...] Team Personnel Name: Esha Corbin MD Position: [facility] Physician - Primary Care Member Role: PCP Address: Address: [address] [place] [address]- Care Team Related Persons Name: DUNCAN SALAS Address: home [address] [place] [address] Name: ALEA LALA Address: home [address] [place] [address] Name: CARLOS LALA
--- OUTSIDE RECORDS SUMMARY | 2024-04-10 02:42 | XMS_ITS | Continuity of Care Document ---
Author Organization Wound Care Address [address] [place] [address]- Care Team Providers Care Travel Director Name Role Phone Esha Corbin MD Primary [facility] Physician [id number] Date([facility] 01/25/23 - 03/02/23 Wound Care [address] [place] [address] Attending Physician: Hemal Trimble MD Admitting Physician: [...] Team Personnel Name: Esha Corbin MD Position: [facility] Physician - Primary Care Member Role: PCP Address: Address: [address] [place] [address]- Care Team Related Persons Name: DUNCAN SALAS Address: home [address] [place] [address] Name: ALEA LALA Address: home [address] [place] [address] Name: CARLOS LALA
--- OUTSIDE RECORDS SUMMARY | 2024-04-10 02:43 | XMS_ITS | Continuity of Care Document ---
Author Organization [facility] Vascular Se rvices Address [address] [place] [address]- Care Team Providers Care Coal Unloader Name Role Phone Esha Corbin MD Primary Care Physician [phone] Encounter [facility] Date(s): 10/17/23 - 12/12/23 [facility] V[facility] Services [address] [place] [address]- Attending Physician: Niharika Spencer NP Admitting Physician: [...] Team Personnel Name: Esha Corbin MD Position: [facility] Physician - Primary Care Member Role: PCP Address: Address: [address] [place] [address]- Care Team Related Persons Name: DUNCAN SALAS Address: home [address] [place] [address] Name: ALEA LALA Address: home [address] [place] [address] Name: CARLOS LALA
--- OUTSIDE RECORDS SUMMARY | 2024-04-10 02:43 | XMS_ITS | Continuity of Care Document ---
Author Organization [facility] Vascular Se rvices Address [address] [place] [address]- Care Team Providers Care Material Flow Engineer Name Role Phone Esha Corbin MD Primary Care Physician Encounter [facility] Date(s): 05/28/23 - 07/29/23 [facility] Vascular Services [address] [place] [address]- Attending Physician: Keeley Oconnor MD Admitting Physician: Keeley Oconnor MD Referring Physician: Esha Corbin MD Allergies, Adverse Reactions, Alerts Substance Reaction Severity Status doxycycline Active sulfamethoxazole Active bacitracin Bacitracin measurement Activ e Protective Ointment with Vitamins A&D Active Aquaphor Active Immunizations Given and Recorded [...] Team Personnel Name: Esha Corbin MD Position: [facility] Physician - Primary Care Member Role: PCP Address: Address: [address] [place] [address]- Care Team Related Persons Name: DUNCAN SALAS Address: home [address] [place] [address] Name: ALEA LALA Address: home [address] [place] [address] Name: CARLOS LALA
--- OUTSIDE RECORDS SUMMARY | 2024-04-10 02:43 | XMS_ITS | Continuity of Care Document ---
Author Organization [facility] Vascular Se rvices Address [address] [place] [address]- Care Team Providers Care Photo Specialist Name Role Phone Esha Corbin MD Primary Care Physician Encounter [facility] Date(s): 01/07/24 - 02/06/24 [facility] V[facility] Services [address] [place], [place] [address] Attending Physician: Kala Barry Admitting Physician: AdmKala [...] recent to oldest [Reference Range]: 1 2 3 Height 177.8 cm (04/28/16 9:05 AM) 177.8 cm (04/03/16 11:51 AM) 177.8 cm (03/13/16 9:15 AM) Weight 141 kg (04/28/16 9:05 AM) 141 kg (03/13/16 9:09 AM) 136.1 kg (08/10/15 1:40 PM) Body Mass Index [18.50-24.99] 44.6 *>HHI* (04/28/16 9:05 AM) 44.6 *>HHI* (03/13/16 9:09 AM) 43.05 *>HHI* (08/10/15 1:40 PM) Blood Pressure [90-138/55-84 mm Hg] 142/92mm Hg *H* (03/13/16 9:15 AM) 162/104mm Hg *H* (03/13/16 9:09 AM) 140/92mm Hg *H* (08/10/15 1:59 PM) Blood pressure sites Arm, right (03/13/16 9:15 AM) Arm, right (08/10/15 1:59 PM) Arm, right (08/03/15 11:46 AM) Weight Obtained Via Standing scale (08/10/15 1:40 PM) Social History Social History Type Response Smoking Status Former smoker, quit more than 30 days ago entered on: 08/14/23 Sex Patient Care team information Care Team Personnel Name: Esha Corbin MD Position: [facility] Physician - Primary Care Member Role: PCP Address: Address: [address] [place] [address]- Care Team Related Persons Name: DUNCAN SALAS Address: [address] [place] [address] Name: ALEA LALA Address: [address] [place] [address] Name: CARLOS LALA
--- OUTSIDE RECORDS SUMMARY | 2024-04-10 02:43 | XMS_ITS | Continuity of Care Document ---
Author Organization [facility] Address [address] [place] [address]- Care Team Providers Care Technical Product Manager Name Role Phone Esha Corbin MD Primary Care Physician En[place] [facility] Date(s): 04/26/23 - 06/01/23 [facility] [address] [facility] [address] [place], [place] [address] [phone] Attending Physician: Hosea Garcia MD Admitting Physician: Hosea Garcia MD Referring Physician: Esha Corbin MD Allergies, [...] Team Personnel Name: Esha Corbin MD Position: [facility] Physician - Primary Care Member Role: PCP Address: Address: [address] [place] [address]- Care Team Related Persons Name: DUNCAN SALAS Address: [address] [place] [address] Name: ALEA LALA Address: home [address] [place] [address] Name: CARLOS LALA
--- OUTSIDE RECORDS SUMMARY | 2024-04-10 02:43 | XMS_ITS | Continuity of Care Document ---
Author Organization [facility] Vascular Se rvices Address [address] [place] [address]- Care Team Providers Care Surgery Aide Name Role Phone Esha Corbin MD Primary Care Physician Encounter [facility] Date(s): 12/05/23 - 02/06/24 [facility] Vascular Services [address] [place], [place] [address] Attending Physician: Niharika Spencer NP Admitting Physician: [...] Team Personnel Name: Esha Corbin MD Position: [facility] Physician - Primary Care Member Role: PCP Address: Address: [address] [place] [address]- Care Team Related Persons Name: DUNCAN SALAS Address: home [address] [place] [address] Name: ALEA LALA Address: [address] [place] [address] Name: CARLOS LALA
--- OUTSIDE RECORDS SUMMARY | 2024-04-10 02:43 | XMS_ITS | Continuity of Care Document ---
Author Organization [facility] Address [address] [place] [address]- Care Team Providers Care Optometrist Assistant Name Role Phone Esha Corbin MD Primary Care Physician [phone] [place]counter [facility] [place](s[place] 08/14/23 - 08/21/23 [facility] [address] [place] [address]- Encounter Diagnosis Chronic venous hypertension (idiopathic) with other complications of right lower extremity(Discharge Diagnosis) - 07/28/23 Chronic venous hypertension (idiopathic) with other complications of left lower extremity(Discharge Diagnosis) - 07/28/23 Severe obesity(Discharge Diagnosis) - 08/14/23 Attending Physician: Neli SANDOVAL, Adolfo Lomeli Referring Physician: Hosea Garcia MD Allergies, Adverse Reactions, Alerts Substance Reaction [...] Condition Confirmation Course Effective Dates Status H ealt Status Informant Ankle ulcer Confirmed Active Ankle [...] complications of right lower extremity Discharge Diagnosis 07/28/23 Chronic venous hypertension (idiopathic) with other complications of left lower extremity Discharge Diagnosis 07/28/23 Severe obesity Discharge Diagnosis 08/14/23 Vital Signs Most recent to oldest [Reference Range]: 1 Height 177.8 cm (08/14/23 1:59 PM) Weight 140.91 kg (08/14/23 1:59 PM) Oxygen Saturation [94-100 %] 98 % (08/14/23 1:59 PM) Pulse Rate [55-90 bpm] 71 bpm (08/14/23 1:59 PM) Body Mass Index [18.5-24.99 kg/m2] 44.57 kg/m2 *>HHI* (08/14/23 1:59 PM) Blood Pressure [90-138/55-84 mm Hg] 138/ 94mm Hg (08/14/23 1:59 PM) Blood pressure sites Arm, right (08/14/23 1:59 PM) Social History Social History Type Response Smoking Status Former smoker, quit more than 30 days ago; Other: 2 ppd x20 yrs, quit 12/2010; entered on: 08/14/23 Sex Patient Care team information Care Team Personnel Name: Esha Corbin MD Position: [facility] Physician - Primary Care Member Role: PCP Address: Address: [address] [place] [address]- Care Team Related Persons Name: DUNCAN SALAS Address: home [address] [place] [address] Name: ALEA LALA Address: home [address] [place] [address] Name: CARLOS LALA
--- OUTSIDE RECORDS SUMMARY | 2024-04-10 02:43 | XMS_ITS | Continuity of Care Document ---
Author Organization [facility] Address [address] [place] [address]- Care Team Providers Care Engineer/Conductor Name Role Phone Esha Corbin MD Primary Care Physician [phone] Encounter [facility] [place] Date(s): 08/13/23 - 09/12/23 [facility] [address] [place] [address]- Attending Physician: Kala Barry Admitting Physician: Kala Barry Referring Physician: AdmtrKala Allergies, Adverse Reactions, Alerts [...] Team Personnel Name: Esha Corbin MD Position: [facility] Physician - Primary Care Member Role: PCP Address: Address: [address] [place] [address]- Care Team Related Persons Name: DUNCAN SALAS Address: home [address] [place] [address] Name: ALEA LALA Address: home [address] [place] [address] Name: CARLOS LALA
--- OUTSIDE RECORDS SUMMARY | 2024-04-10 02:43 | XMS_ITS | Continuity of Care Document ---
Author Organization [facility] Address [address] [place] [address]- Care Team Providers Care Product Picker Name Role Phone Esha Corbin MD Primary Care Physician [place] [facility] [place](s): 12/05/23 - 12/12/23 [facility] [address] [place], [place] [address] Attending Physician: Niharika Spencer NP Admitting [...] oldest [Reference Range]: 1 Height 177.8 cm (12/05/23 11:43 AM) Weight 130.55 kg (12/05/23 11:43 AM) Oxygen Saturation [94-100 %] 98 % (12/05/23 11:43 AM) Pulse Rate [55-90 bpm] 70 bpm (12/05/23 11:43 AM) Body Mass Index [18.5-24.99 kg/m2] 41.3 kg/m2 *>HHI* (12/05/23 11:43 AM) Blood Pressure [90-138/55-84 mm Hg] 120/ 70mm Hg (12/05/23 11:43 AM) Blood pressure sites Arm, left (12/05/23 11:43 AM) Weight Obtained Via Patient/family state d (12/05/23 11:43 AM) Social History Social History Type Response Smoking Status Former smoker, quit more than 30 days ago entered on: 08/14/23 Sex Note * Jonathan Mcdonough: PERFORM, SIGN, VERIFY Event Display: Patient Education/Instruction Authored Date: [id number] [facility] *[facility] [address] Clinical Summary Name BOUCHRA LALA Age 53 Years 1970 [id number] Date 12/05/2023 11:00:00 Additional Instructions: Scheduled Appointments?? Future Appointments ?*[facility],??[place],??[address] ?Phone:??--?Fax:??-- ?Appt. Date:??01/07/2024?11:15 AM ?Scheduled Provider:??Niharika Spencer NP Follow-Up Instructions ?? With: Address: When: Niharika Spencer NP 01/04/2023 12:00 AM Comments: 1 month wound check office visit here Diagnosis Medications: Please continue your medications until [...] tab(s) Oral twice a day. Next Dose: [place]-3 Polyunsaturated Fatty Acids (Fish Oil 1200 mg [...] orders Vital Signs Height 177.8 cm Weight 130.55 kg BMI 41.3 kg/m2 Blood Pressure 120 mm Hg/70 mm Hg Temperature Pulse Rate 70 bpm Respiratory Rate 02 Sat Mode of Delivery 98 %/ You can now view a summary of your hospital visit from the comfort of your home through a free online portal called [employer]. [employer] is a website that allows you to securely view your medical information including discharge summary, medications and follow-up visits. ??You can alsosend a secure electronic message to your doctor???s office to request appointments, renew medications or just ask a question. You can enroll at [email or web address] or register during your next office visit. [...] primary care provider, you may find a [facility] provider by calling [facility] Trending Taste Link at [phone]. [facility], in keeping with [facility] guidance, no longer requires face masks [...] Team Personnel Name: Esha Corbin MD Position: [facility] Physician - Primary Care Member Role: PCP Address: Address: [address] [place], [place] Care Team Related Persons Name: DUNCAN SALAS Address: home [address] [place], [place] Name: ALEA LALA Address: home [address] [place] [address] Name: CARLOS LALA
--- OUTSIDE RECORDS SUMMARY | 2024-04-10 02:43 | XMS_ITS | Continuity of Care Document ---
Author Organization [facility] Address [address] [place] [address]- Care Team Providers Care Correctional Case Records Supervisor Name Role Phone Esha Corbin MD Primary Care Physician Encounter [facility] [place] Date(s): 06/29/23 - 07/29/23 [facility] [address] [place], [place] [address] Attending Physician: Kala Barry Admitting Physician: [...] Team Personnel Name: Esha Corbin MD Position: [facility] Physician - Primary Care Member Role: PCP Address: Address: [address] [place] [address]- Care Team Related Persons Name: DUNCAN SALAS Address: home [address] [place] [address] Name: ALEA LALA Address: home [address] [place] [address] Name: CARLOS LALA
[2024-04-10 04:00] VITALS: BP 116/81; PULSE 110; RESP 22; TEMP 37.9; O2SAT 96
--- NOTE | 2024-04-10 05:00 | ECG_ITS ---
Test Reason : NAUSEA Blood Pressure : / mmHG Vent. Rate : 109 BPM Atrial Rate : 109 BPM P-R Int : 222 ms QRS Dur : 070 ms QT Int : 314 ms P-R-T Axes : 046 -01 042 degrees QTc Int : 422 ms Sinus tachycardia with 1st degree A-V block Abnormal ECG When compared with ECG of 05-APR-2024 11:35, No significant change was found Referred By: Ofe Torres Electronically Signed By:BOB LOPEZ
--- NOTE | 2024-04-10 05:01 | ED_ITS ---
HPI - Nausea/Vomiting/Diarrhea General Chief complaint: Nausea/Vomiting/Diarrhea Stated complaint: NAUSEA/FEELING FAINT Time Seen by Provider: 04/10/24 04:02 Source: patient, family and EMS Mode of arrival: EMS Limitations: no limitations History of Present Illness ED Provider: DR. Torres HPI Narrative: 54-year-old male with history of DM type 2, hypertension, morbid obesity, sleep apnea patient was placed on Mounjaro for weight loss for the past 2 months lost about 40 lb, last night woke up in the middle of the night feeling nauseous, diaphoretic, epigastric pain, then vomited patient felt is about to pass out with all the symptoms, in the ED patient had 3 episodes of loose stool with no blood, patient now feels better with resolution of all his symptoms. No chest pain, no palpitation, no coughing. Related Data Home Medications ?Medication ?Instructions ?Recorded ?Confirmed cholecalciferol (vitamin D3) 25 25 mcg PO DAILY 03/09/24 03/13/24 mcg (1,000 unit) capsule (Vitamin D3) metformin 750 mg tablet,extended 1,500 mg PO DAILY 03/09/24 03/13/24 release 24 hr mineral oil-isopropyl myristat 1 appl topical DAILY 03/09/24 03/13/24 lotion tirzepatide 5 mg/0.5 mL 5 mg subcut SA 03/09/24 03/13/24 subcutaneous pen injector (Mounjaro) Previous Rx's ?Medication ?Instructions ?Recorded blood-glucose meter (healthfinchuch #1 ea 06/02/21 Ultra2 Meter kit) lancing device with lancets kit #1 ea 06/03/21 ([email or web address] Delica Lancing Device kit) diphenhydramine HCl 25 mg capsule 50 mg (2 x 25 mg) PO Q6H PRN 10/04/21 (Benadryl) allergic reaction #20 caps lancets (Sfletter.comTouch UltraSoft #100 ea 07/19/22 Lancets) lancets 33 gauge (Sfletter.comTouch Delica #100 ea 07/25/22 Lancets) CPAP (CPAP Machine/Device) #1 ea 08/24/22 blood sugar diagnostic (Sfletter.comTouch #100 ea 02/08/23 Ultra Test strips) simvastatin 40 mg tablet 40 mg PO DAILY #90 tabs 08/12/23 warfarin 7.5 mg tablet 7.5 mg PO DAILY #90 tabs 12/28/23 blood-glucose sensor (Dexcom G7 #2 ea 03/13/24 Sensor device) hydrochlorothiazide 25 mg tablet 25 mg PO DAILY #30 tabs 03/25/24 Allergies Allergy/AdvReac Type Severity Reaction Status Date / Time A & D Allergy Severe anaphylaxis Verified 04/10/24 02:34 bacitracin [BACITRACIN] Allergy Severe Verified 04/10/24 02:34 SEIZURE , anaphylaxis Sulfa (Sulfonamide Allergy Mild SWELLING Verified 04/10/24 02:34 Antibiotics) adhesive tape Allergy Rash Verified 04/10/24 02:34 dapagliflozin [From Farxiga] AdvReac Intermediate Abdominal Verified 04/10/24 02:34 Pain dulaglutide [From Trulicity] AdvReac Intermediate Diarrhea, Verified 04/10/24 02:34 vomiting lisinopril AdvReac Intermediate Dizziness Verified 04/10/24 02:34 SSRI AdvReac Intermediate DECREASE Uncoded 04/10/24 02:34 LIBIDO Review of Systems 2 Review of Systems: All other systems are reviewed and are negative Constitutional: Reports as per HPI and Reports no additional constitutional complaints Eyes: Reports as per HPI and Reports no additional eye complaints Reports system reviewed and no additional complaints, except as documented Cardiovascular: Reports as per HPI and Reports no additional cardiovascular complaints Respiratory: Reports as per HPI and Reports no additional respiratory complaints Gastrointestinal: Reports as per HPI and Reports no additional gastrointestinal complaints Genitourinary: Reports no additional female genitourinary complaints Musculoskeletal: Reports no additional musculoskeletal complaints Skin/Breast: Reports system reviewed and no additional complaints, except as docu Psychiatric: Reports no additional psychiatric complaints Endocrine: Reports no additional endocrine complaints Hematologic/Lymphatic: Reports no additional hematologic/lymphatic complaints Allergic/Immunologic: Reports no additional allergic/immunologic complaints Reports system reviewed and no additional complaints, except as documented and Reports Abnormal speech present [facility] Past Medical History Medical History Heart block AV second degree Vitamin B 12 deficiency Dizziness Annual physical exam Skin abnormalities STD (male) DM type 2 (diabetes mellitus, type 2) Venous (peripheral) insufficiency Obesity Hyperlipidemia PVD (peripheral vascular disease) Hypertension DVT (deep venous thrombosis) Factor 5 Leiden mutation, heterozygous SOB (shortness of breath) Surgical History Hx of esophagogastroduodenoscopy Hx of colonoscopy H/O vascular surgery Family History Family History Father CVD (cardiovascular disease) Mother CVD (cardiovascular disease) Daughter No problems noted. Son No problems noted. Social History Social History Household Members: Spouse and Significant Other Housing: House Are you a primary home child care provider to a significant other at home: No Do you presently have visiting nurse or other home services: No Unable to assess alcohol history related to: Unknown Patient Tobacco Use Status: Former Tobacco user Tobacco use type: Cigarette Smoked in Last 30 Days: No e-Cigarette/Vaping Use: Never Used Second Hand Smoke Exposure: No (none) Use of substances other than those prescribed or required for medical reasons: No Advance Directives: No Advance Directives Information Provided: Yes Do you have a plan to hurt others: No Plan service: No Current occupational status: employed Cognitive needs: No Hearing needs: No Vision needs: No Physical Exam 2 Vital Signs: Vital Signs: Last Vital Signs Temp 100.1 F 04/10/24 06:00 Pulse 108 H 04/10/24 06:00 Resp 20 04/10/24 06:00 BP 132/88 04/10/24 06:00 Pulse Ox 96 04/10/24 06:00 O2 Del Method Room Air 04/10/24 06:00 BMI result Body Mass Index 41.2 Vital signs have been reviewed and appear to be correct. Blood pressure elevated. Heart rate normal. Respiratory rate normal. Temperature normal. Oxygen saturation normal. Appearance: Alert. Oriented X3. No acute distress. Head: Normal external exam. Normocephalic. Atraumatic. No Alex signs noted. No raccoon eyes noted Eyes: PERRLA. EOMI. Conjunctiva and sclera normal. Eyelids normal. ENT: TM's Normal. Pharynx normal. Uvula midline. Moist mucous membranes. No trismus noted. No drooling noted. No muffled voice noted. Neck: Normal inspection. Neck supple. FROM. No adenopathy. Thyroid Normal. No meningeal signs. No neck mass noted. CVS: Normal heart rate and rhythm. Heart sound normal. No murmurs noted. Pulses normal throughout. Respiratory: No respiratory distress. Painless inspiration. Breath sounds normal. No wheezes/rales/rhonchi noted. Chest nontender. No accessory muscle usage noted or decreased air movement noted. Abdomen: Soft and nontender. Bowel sounds normal in all 4 quadrants. No distention noted. No organomegaly noted. No visible injury noted. Back: No CVA tenderness. Full range of motion noted. Skin: Skin warm and dry. Normal skin color. Normal skin turgor. No rashes/lesions/lacerations noted. Extremities: No lower extremity edema. Extremities exhibit normal range of motion. Extremities nontender. Neuro: Oriented X 3. Cranial nerve exam: II-XII are grossly intact No motor deficit. No sensory deficit. Reflexes normal. Course Reevaluation(s) Reevaluation #1: Patient's symptoms is a combination of being on Mounjaro for 2 months for weight loss, a burger [employer] sandwich that cause of low-grade fever, nausea, vomiting, and 3 times diarrhea in the ED. patient now feels better after hydration in the emergency department. Was instructed to discuss with his PCP of wean off Mounjaro especially if symptoms persist. UA is positive for trace of LE and 6-10 WBCs patient has no dysuria, no frequency urination, no hematuria. Patient was instructed to drink plenty of fluids Time: 06:45 Medications Administered Discontinued Medications Generic Name Dose Route Start Last Admin Trade Name Freq PRN Reason Stop Dose Admin Acetaminophen 650 mg 04/10/24 06:23 04/10/24 06:27 Acetaminophen 325 Mg Tablet PO 04/10/24 06:24 650 mg ONCE ONE Administration Sodium Chloride 1,000 mls @ 999 mls/hr 04/10/24 05:00 04/10/24 06:25 Ns IV 04/10/24 06:00 Infused .Q1H1M ONE Infusion Medical Decision Making Differential Diagnosis Differential Diagnoses: The differential diagnosis associated with the presentation includes (Medical Housekeeper with side-effect, food poisoning, gastroenteritis, severe dehydration, severe anemia, UTI.) Admission/Observation Consideration of admission/observation: Escalation of care including admission/observation considered Lab Data MDM Lab Attestation statement: I reviewed the patient's lab results. 04/10/24 05:18 04/10/24 05:18 Labs: Lab Results 04/10/24 Range/Units 05:18 WBC 12.4 H (4.8-10.8) X10*3/uL RBC 5.30 (4.60-5.80) X10*6/uL Hgb 16.3 (14.0-18.0) g/dl Hct 47.3 (42.0-52.0) % MCV 89.2 (80.0-98.0) fL MCH 30.8 (27.0-33.0) pg MCHC 34.5 (31.0-36.0) g/dl RDW 12.9 (11.0-16.0) % Plt Count 252 (160-400) X10*3/uL MPV 9.1 L (9.4-12.4) fL Immature Gran % (Auto) 0.4 (0.0-0.4) % Neut % (Auto) 86.9 H (45-73) % Lymph % (Auto) 5.1 L (20-40) % [place] % (Auto) 6.9 (2-11) % Eos % (Auto) 0.4 (0-4) % Baso % (Auto) 0.3 (0-2) % Lymph # (Auto) 0.6 L (1.2-4.9) X10*3/uL [place] # (Auto) 0.9 (0.1-1.2) X10*3/uL Eos # (Auto) 0.1 (0.0-0.4) X10*3/uL Baso # (Auto) 0.0 (0.0-0.2) X10*3/uL Abs Immat Gran (auto) 0.05 H (0.00-0.03) X10*3/uL Absolute Neuts (auto) 10.8 H (2.0-8.3) x10*3/uL Absolute Nucleated RBC 0.000 (0.0-0.012) X10*3/uL Nucleated RBC % (auto) 0.0 (0.0-0.2) /100WBC Sodium 139 (135-145) mmol/L Potassium 3.7 (3.3-5.1) mmol/L Chloride 102 (96-108) mmol/L Carbon Dioxide 27 (22-29) mmol/L Anion Gap 14 (12-20) BUN 15 (9-16) mg/dL Creatinine 1.02 (0.5-1.4) mg/dL Estim Creat Clear Calc 110.2 Estimated GFR > 60 Random Glucose 139 H (60-115) mg/dL Calcium 9.4 (8.4-10.2) mg/dL Total Bilirubin 0.8 (0.0-1.0) mg/dL Direct Bilirubin 0.3 (0.0-0.5) mg/dL AST 20 (5-37) U/L ALT 17 (0-40) U/L Alkaline Phosphatase 55 (39-117) U/L Troponin I High Sens < 2.7 (<3.5-35.0) ng/L B-Natriuretic Peptide 21 (<100) pg/mL Total Protein 7.8 (6.5-8.0) g/dL Albumin 4.2 (3.5-5.0) g/dL Lipase 38 (8-78) U/L Urine Color Dark Yellow Urine Appearance Cloudy Urine pH 5.5 (5.0-9.0) Ur Specific [place] >= 1.030 H (1.005-1.025) Urine Protein 30 (1+) H (Neg-Trace) mg/dL Urine Glucose (UA) Negative (Negative) mg/dL Urine Ketones Trace (Negative) mg/dL Urine Blood Negative (Negative) Urine Nitrite Negative (Negative) Ur Leukocyte Esterase Trace H (Negative) Urine RBC 0-2 (0-2) /HPF Urine WBC 6-10 H (0-5) /HPF Ur Squamous Epith Cells 6-10 (0-2) /HPF Calcium Oxalate Crystal Present Urine Bacteria Trace (None Seen) Hyaline Casts 11-20 (0-2) /LPF Influenza Type A (PCR) NEGATIVE (Negative) Influenza Type B (PCR) NEGATIVE (Negative) RSV RNA Qual (PCR) NEGATIVE (Negative) SARS-CoV-2 RNA (RT-PCR) NEGATIVE (Negative) Discharge Plan Discharge Clinical Impression: Food poisoning, Medication adverse effect Patient Disposition: Home, Self-Care Instructions: Food Poisoning (ED) Additional Instructions: Drink plenty of fluids. Follow-up with your primary doctor if symptoms persist to discuss weaning of Mounjaro. Prescriptions: No Action (DME) blood-glucose meter [OneTouch Ultra2 Meter] Kit See Rx Instructions .Route Qty: 1 0RF Rx Instructions: As directed (DME) lancing device with lancets [OneTouch Delica Lanc Device] Kit See Rx Instructions .Route Qty: 1 0RF Rx Instructions: testing blood sugar once daily (DME) lancets [OneTouch Delica Lancets] 33 gauge misc See Rx Instructions .Route Qty: 100 3RF Rx Instructions: test blood sugar daily (DME) CPAP Machine/Device Device See Rx Instructions .Route Qty: 1 0RF Rx Instructions: auto PAP 6-20 cm with heated humidification with needed supplies (DME) OneTouch Ultra Test Strip See Rx Instructions .Route Qty: 100 3RF Rx Instructions: test blood sugar once a day simvastatin 40 mg tablet 40 mg PO DAILY Qty: 90 3RF warfarin 7.5 mg tablet 7.5 mg PO DAILY Qty: 90 1RF diphenhydramine HCl [Benadryl] 25 mg capsule 50 mg PO Q6H PRN (Reason: allergic reaction) Qty: 20 0RF cholecalciferol (vitamin D3) [Vitamin D3] 25 mcg (1,000 unit) Capsule 25 mcg PO DAILY mineral oil-isopropyl myristat Lotion 1 appl TOPICAL DAILY metformin 750 mg tablet extended release 24 hr 1,500 mg PO DAILY Mounjaro 5 mg/0.5 mL pen injector 5 mg subcut SA (DME) lancets [OneTouch UltraSoft Lancets] Misc See Rx Instructions .ROUTE .MEDSUPPLY Qty: 100 6RF Rx Instructions: TID (DME) Dexcom G7 Sensor Device See Rx Instructions .Route Qty: 2 2RF Rx Instructions: As directed hydrochlorothiazide 25 mg tablet 25 mg PO DAILY Qty: 30 0RF Print Language: Yemeni
[2024-04-10] MEDS: 0.9 % Sodium Chloride 1,000 ML 999 ML IV (05:20)
[2024-04-10 05:23] LABS: MANUAL DIFF FLAG NO
[2024-04-10 05:24] LABS: Basophils Percent Auto 0.3 % (0-2); Eosinophils Absolute Auto 0.1 X10*3/uL (0.0-0.4); Eosinophils Percent Auto 0.4 % (0-4); Hematocrit 47.3 % (42.0-52.0); Hemoglobin 16.3 g/dl (14.0-18.0); Imm Gran Abs Auto 0.05 X10*3/uL (0.00-0.03); Imm Gran Pct Auto 0.4 % (0.0-0.4); Lymphocytes Absolute Auto 0.6 X10*3/uL (1.2-4.9); Lymphocytes Percent Auto 5.1 % (20-40); Mean Corpuscular HGB Conc 34.5 g/dl (31.0-36.0); Mean Corpuscular Hemoglobin 30.8 pg (27.0-33.0); Mean Corpuscular Volume 89.2 fL (80.0-98.0); Mean Platelet Volume 9.1 fL (9.4-12.4); Monocytes Absolute Auto 0.9 X10*3/uL (0.1-1.2); Monocytes Percent Auto 6.9 % (2-11); Neutrophils Absolute Auto 10.8 x10*3/uL (2.0-8.3); Neutrophils Percent Auto 86.9 % (45-73); Platelet Count 252 X10*3/uL (160-400); Red Cell Distribution Width 12.9 % (11.0-16.0); White Blood Count 12.4 X10*3/uL (4.8-10.8)
[2024-04-10 05:25] LABS: Appearance Urine Cloudy; Color Urine Dark Yellow; Glucose Urine UA Negative (Negative); Leukocyte Esterase Urine Trace (Negative); Nitrite Urine Negative (Negative); PH 5.5 (5.0-9.0); Specific Gravity - Urine >= 1.030 (1.005-1.025); UMIC TRIGGER UACC YES; Urine Blood Negative (Negative); Urine Ketones Trace mg/dL (Negative); Urine Protein 30 (1+) mg/dL (Neg-Trace)
[2024-04-10 05:33] LABS: Bacteria Urine Trace (None Seen); Calcium Oxalate Crystals Urine Present; RBC Urine 0-2 /HPF (0-2); UACC Culture Trigger YES
[2024-04-10 05:40] LABS: Alanine Aminotransferase 17 U/L (0-40); Albumin Level 4.2 g/dL (3.5-5.0); Alkaline Phosphatase 55 U/L (39-117); Anion Gap 14 (12-20); Aspartate Amino Transferase 20 U/L (5-37); Bilirubin Direct 0.3 mg/dL (0.0-0.5); Bilirubin Total 0.8 mg/dL (0.0-1.0); Blood Urea Nitrogen 15 mg/dL (9-16); Calcium 9.4 mg/dL (8.4-10.2); Carbon Dioxide 27 mmol/L (22-29); Chloride 102 mmol/L (96-108); Creatinine Clr Calc Pharmacy 110.2; Estimated Glomerular Filt Rate > 60; Glucose Random 139 mg/dL (60-115); Lipase 38 U/L (8-78); Potassium 3.7 mmol/L (3.3-5.1); Sodium 139 mmol/L (135-145); Total Protein 7.8 g/dL (6.5-8.0)
[2024-04-10 05:43] LABS: B Type Natriuretic Peptide 21 pg/mL (<100)
[2024-04-10 05:46] LABS: Troponin-I High Sensitivity < 2.7 ng/L (<3.5-35.0)
[2024-04-10 06:00] VITALS: BP 132/88; PULSE 108; RESP 20; TEMP 37.8; O2SAT 96
[2024-04-10 06:00] LABS: Influenza A PCR NEGATIVE (Negative); Influenza B PCR NEGATIVE (Negative); Resp Syncy Virus RNA Qual PCR NEGATIVE (Negative); SARS COV2 PCR INHOUSE NEGATIVE (Negative)
[2024-04-10] MEDS: Acetaminophen 325 MG TABLET 650 MG PO (06:27)
[2024-04-10 07:04] VITALS: BP 113/80; PULSE 108; RESP 18; TEMP 37.1; O2SAT 98
== END 2024-04-10 07:05 | disposition home or self-care (01) ==
PROVIDERS: Emergency Provider Emergency Medicine
DX: A05.9 Bacterial foodborne intoxication, unspecified (principal); R11.2 Nausea with vomiting, unspecified; T50.995A Adverse effect of other drugs, medicaments and biological substances, initial encounter; Y92.9 Unspecified place or not applicable; Z03.818 Encounter for observation for suspected exposure to other biological agents ruled out; E11.9 Type 2 diabetes mellitus without complications; I10 Essential (primary) hypertension; E78.5 Hyperlipidemia, unspecified; Z86.718 Personal history of other venous thrombosis and embolism; Z79.84 Long term (current) use of oral hypoglycemic drugs; Z79.899 Other long term (current) drug therapy; Z79.01 Long term (current) use of anticoagulants; Z79.02 Long term (current) use of antithrombotics/antiplatelets
CPT/HCPCS: 0241U; 36415; 80048; 80076; 81001; 83690; 83880; 84484; 85025; 87086; 93005; 96360; 99284; 99285

== ENCOUNTER → 2024-04-17 07:47 | Outpatient (REF) | payer MEDICARE, MEDICAID, SELFPAY ==
--- NOTE | ~2024-04-17 | NM_ITS ---
EXERCISE MYOCARDIAL PERFUSION STUDY INDICATION: Heart block TECHNIQUE: The patient was brought in for an exercise perfusion study on 04/17/2024. Patient performed exercise as per Irvin protocol and was injected 40 mCi of sestamibi once target heart rate was achieved. Images were obtained using the SPECT gamma camera interlaced with the gating device. Images were obtained in supine position. Resting perfusion study was performed on 04/18/2024. Patient was administered 40 mCi of sestamibi intravenously at rest. Images were then obtained in supine position. Total DLP 152 mGy-cm. Images were processed with the software and compared side to side in short axis, horizontal long axis and vertical long axis views. FINDINGS: Raw aquisition reviewed. The stress perfusion study showed no significant perfusion abnormality. Both uncorrected as well as CT attenuation corrected images were reviewed. The gated study shows normal LV systolic function with calculated LVEF of 49%, but visually appears higher. LV cavity is normal in size. The gated study shows normal wall thickening and contraction of segments. Resting study shows no significant perfusion abnormality. Gating at rest reveals normal wall motion with ejection fraction at 47% but visually appears higher. The findings are consistent with no clear reversible or fixed perfusion defects. NM/NM cardiolite stress test IMPRESSION: 1. Myocardial perfusion imaging study shows probably normal myocardial perfusion. 2. Gated LVEF is 49% during stress and 47% during rest but visually in the normal range. 3. Transient ischemic dilatation not present. EKG component of the test reported separately. Electronically signed by: Evin Nix MD 04/21/2024 03:59 PM EDT
--- NOTE | 2024-04-17 07:50 | CA_ITS ---
Acquisition Time: 2024-04-17 08:01:46 Total Exercise Time: 00:05:00 Test Indications: Abnormal ECG Medications: METFORMIN SIMVASTATIN WARFARIN Protocol: SHANNON Max HR: 153 BPM 91% of Pred: 167 BPM Max BP: 138/084 mmHG Max Work Load: 6.1 METS Exercise stress test exercise 5 min of Shannon protocol ( stage 2 adjusted speed) achieving 91% MPHR, with moderate SOB, no chest discomfort, without arrhythmias noted, with normotensive resposne exercise, with brisk HR response, without EKG changes. Breathing returned to baseline with rest. Nuclear images pending. Test reviewed with Dr. Rodriguez. Referred By: Anup Herrmann Overread By: Arleth Lagos
== END ==
LOC: HO.CARD 07:47
PROVIDERS: PCP Internal Medicine; Visit Provider Internal Medicine Cardiovascular Disease
DX: I44.1 Atrioventricular block, second degree (principal); G47.33 Obstructive sleep apnea (adult) (pediatric); E78.5 Hyperlipidemia, unspecified; R94.39 Abnormal result of other cardiovascular function study
CPT/HCPCS: 78452; 93017; A9500

== ENCOUNTER → 2024-04-17 07:50 | Outpatient (BNV) | payer MEDICARE, MEDICAID, SELFPAY | PROVIDERS: PCP Internal Medicine; Visit Provider Nurse Practitioner | DX: R94.31 Abnormal electrocardiogram [ECG] [EKG] (principal) | CPT/HCPCS: 78452; 93016; 93018 ==

== ENCOUNTER 2024-04-22 14:43 | Outpatient (AMB) | payer MEDICARE, MEDICAID, SELFPAY ==
[2024-04-22 14:52] VITALS: BP 128/62; PULSE 98; BMI 41.0
--- NOTE | 2024-04-22 14:52 | A.OFFVIS_ITS ---
Vital Signs 04/22/24 14:52 Height 5 ft 9 in Weight 277 lb 12.519 oz BMI 41.0 BP 128/62 Blood Pressure Location Lt brachial Position Sitting Pulse 98 Pulse Source Pulse Oximeter Intake Visit Reasons: f[place] [facility] [place] Allergies A & D Allergy (Severe, Verified 04/10/24 02:34) anaphylaxis bacitracin [BACITRACIN] Allergy (Severe, Verified 04/10/24 02:34) SEIZURE , anaphylaxis Sulfa (Sulfonamide Antibiotics) Allergy (Mild, Verified 04/10/24 02:34) SWELLING adhesive tape Allergy (Verified 04/10/24 02:34) Rash dapagliflozin [From Farxiga] Adverse Reaction (Intermediate, Verified 04/10/24 02:34) Abdominal Pain dulaglutide [From [facility]] Adverse Reaction (Intermediate, Verified 04/10/24 02:34) Diarrhea, vomiting lisinopril Adverse Reaction (Intermediate, Verified 04/10/24 02:34) Dizziness SSRI Adverse Reaction (Intermediate, Uncoded 04/10/24 02:34) DECREASE LIBIDO Medication List - Last Reconciled 04/22/24 by EDWARD AlvarezC blood sugar diagnostic ([employer] Ultra Test strips) test blood sugar once a day blood-glucose meter ([employer] Ultra2 Meter kit) As directed blood-glucose sensor (orangutrans G7 Sensor device) As directed cholecalciferol (vitamin D3) (Vitamin D3) 25 mcg PO DAILY CPAP (CPAP Machine/Device) auto PAP 6-20 cm with heated humidification with needed supplies diphenhydramine HCl (Benadryl) 50 mg (2 x 25 mg) PO Q6H PRN lancets ([employer]uch UltraSoft Lancets) TID lancets ([employer] Delica Lancets) test blood sugar daily lancing device with lancets ([employer] Delica Lancing Device kit) testing blood sugar once daily metformin ER 1,500 mg PO DAILY simvastatin 40 mg PO DAILY warfarin 7.5 mg PO DAILY HPI HPI f/up [facility] [place]: Details: Jameel is a 54-year-old male with past medical history of morbid obesity, hyperlipidemia, diabetes, factor 5 Leiden who recently presented to the emergency room with weakness and low heart rate. An EKG showed second-degree heart block with 2-1 conduction. He was evaluated by Dr. Herrmann for Cardiology and his atenolol was then stopped. His heart rate and rhythm did improve. He then had an ER visit for heart palpitations and tachycardia. He was thought to be rebound tachycardia from stopping the beta-caroline. An outpatient cardiac event monitor and exercise nuclear stress test were completed and he now presents for follow-up. Today he reports that he has been feeling better in the last 2 weeks. He is no longer having the tachycardia. Checks his blood pressure and heart rate frequently. He has not had any heart rates less than 50. Tells me his heart rate typically runs 70s to 80s. Is not noticing rates running greater than 100. No recurrent weakness, dizziness, presyncope. No chest discomfort at rest or with activity. No shortness of breath, PND, orthopnea or edema. He has been walking regularly trying to lose weight. Is on Mounjaro and tells me he has lost approximately 40 lb. is present. [facility] Medical History Heart block AV second degree Vitamin B 12 deficiency Dizziness Annual physical exam Skin abnormalities STD (male) DM type 2 (diabetes mellitus, type 2) Venous (peripheral) insufficiency Obesity Hyperlipidemia PVD (peripheral vascular disease) Hypertension DVT (deep venous thrombosis) Factor 5 Leiden mutation, heterozygous SOB (shortness of breath) Surgical History Hx of esophagogastroduodenoscopy Hx of colonoscopy H/O vascular surgery Family History Father CVD (cardiovascular disease) Mother CVD (cardiovascular disease) Daughter No problems noted. Son No problems noted. Social History Household Members: Spouse and Significant Other Housing: House Are you a primary primary care md to a significant other at home: No Do you presently have visiting nurse or other home services: No Unable to assess alcohol history related to: Unknown Patient Tobacco Use Status: Former Tobacco user Tobacco use type: Cigarette e-Cigarette/Vaping Use: Never Used Second Hand Smoke Exposure: No (none) service: No Current occupational status: employed Cognitive needs: No Hearing needs: No Vision needs: No Review of Systems Const All systems reviewed & are unremarkable except as noted in HPI and below Denies weakness ENT Denies dizziness Card Denies chest pain, Denies chest pain with activity, Denies syncope, Denies rapid heart rate, Denies pedal edema, Denies edema, Denies leg edema, Denies lightheadedness, Denies palpitations, Denies dyspnea, Denies dyspnea on exertion and Denies orthopnea Resp Denies cough, Denies dyspnea and Denies dyspnea on exertion GI Denies hematochezia and Denies change in stool character Musc Denies abnormal gait, Denies muscle cramps, Denies muscle weakness, Denies numbness, Denies radiating pain into limb and Denies tingling Neuro Denies abnormal gait, Denies dizziness, Denies syncope, Denies numbness, Denies tingling and Denies weakness Endo Denies palpitations Physical Exam Vital Signs: Last Vital Signs Pulse 98 04/22/24 14:52 BP 128/62 04/22/24 14:52 BMI result Body Mass Index 41.0 Const General: cooperative, healthy appearing (Morbidly obese), comfortable and no acute distress Orientation/consciousness: patient oriented x3 Neck Neck: Yes normal visual inspection and Yes no JVD Resp Effort & Inspection: normal respiratory effort Auscultation: clear to auscultation bilaterally, no crackles, no rales, no rhonchi and no wheezes Cardio Jugular venous distension: no JVD Rate: regular rate Rhythm: regular rhythm Heart sounds: S1 normal heart sound present, S2 normal heart sound present, no murmurs and no rubs Neuro General: patient oriented x3 Extrem General: Yes normal to inspection, No no pedal edema and No calf tenderness Psych Appearance: grossly normal Mental Status: mental status grossly normal Speech and movement: Normal speech and movement present Assessment & Plan Assessment & Plan (1) Heart block AV second degree: Comment: on Atenolol, [place] [facility] after stopping Atenolol 03/29 Code(s): I44.1 - Atrioventricular block, second degree Category: Medical Plan: Recent ER visit with weakness, slow heart rate and EKG showed second-degree heart block, 2-1 conduction, rate 42. He was on atenolol which was stopped. He was monitored overnight and his rate and rhythm did improve. Did have an exercise stress test on 03/10/2024 showing exercise 5 minutes with moderate shortness of breath, achieving 98% MPHR, no ischemic changes. He did have an ER visit 2 weeks later for heart palpitations which was thought to be rebound tachycardia from stopping the beta-caroline. He wore a cardiac event monitor for 14 out of 30 days starting on 03/14/2024 showing sinus rhythm with average heart rate 85, 27% of the time greater than 100, rare ventricular ectopy, one 4 beat run, Mobitz type 1 second-degree AV block noted during overnight hours. Symptom of chest pressure and dizziness associated with sinus rhythm. An exercise nuclear stress test was done on 04/17/2024 with exercise 5 minutes, moderate shortness of breath, no EKG changes and normal myocardial perfusion imaging. All the above reviewed with him. He monitors his vital signs at home and he has not had any slow heart rates. Tells me his average heart rate is 70s to 80s. He has not had recurrent symptoms of weakness or lightheadedness like what brought him to the ER originally in March. Instructed him to notify this office if he has any recurrent issues and to seek emergency care as needed for presyncope, heart rates less than 50. No indication for pacemaker placement at this time. Continue with CPAP compliance. Cardiology follow-up 3-4 months, sooner if needed. (2) Hypertension: Comment: Could not tolerate lisinopril causes dizziness, atenolol caused second-degree AV Code(s): I10 - Essential (primary) hypertension Category: Medical Qualifiers: Hypertension type: primary hypertension Qualified Code(s): I10 - Essential (primary) hypertension Plan: Normal range today. No med changes made. Avoid use of any rate slowing agents (3) APOLLO (obstructive sleep apnea): Comment: On CPAP Code(s): G47.33 - Obstructive sleep apnea (adult) (pediatric) Category: Medical Plan: He reports compliance with his CPAP mask. 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 Plan Time spent on chart review, documentation, interview and assessment Coding Level of Care Code Est Pt Level 4 (19172) Diagnoses Heart block AV second degree I44.1 Primary hypertension I10 Hypertension type: primary hypertension APOLLO (obstructive sleep apnea) G47.33 Factor 5 Leiden mutation, heterozygous D68.51 Time Spent (min) 30
== END 2024-04-22 15:33 | disposition home or self-care (01) ==
PROVIDERS: PCP Internal Medicine; Visit Provider Nurse Practitioner Family
DX: I44.1 Atrioventricular block, second degree (principal); I10 Essential (primary) hypertension; G47.33 Obstructive sleep apnea (adult) (pediatric); D68.51 Activated protein C resistance
CPT/HCPCS: 99214

== ENCOUNTER → 2024-04-22 14:43 | Outpatient (BNVA) | payer MEDICARE, MEDICAID, SELFPAY | PROVIDERS: PCP Internal Medicine; Visit Provider Nurse Practitioner Family | DX: I10 Essential (primary) hypertension (principal); I44.1 Atrioventricular block, second degree; D68.51 Activated protein C resistance | CPT/HCPCS: 99212 ==

== ENCOUNTER 2024-05-12 09:10 | Outpatient (REF) | payer MEDICARE, MEDICAID, SELFPAY ==
[2024-05-12 09:59] LABS: MANUAL DIFF FLAG NO
[2024-05-12 10:07] LABS: Basophils Percent Auto 0.6 % (0-2); Eosinophils Absolute Auto 0.1 X10*3/uL (0.0-0.4); Eosinophils Percent Auto 1.5 % (0-4); Hematocrit 44.1 % (42.0-52.0); Hemoglobin 14.7 g/dl (14.0-18.0); Imm Gran Abs Auto 0.03 X10*3/uL (0.00-0.03); Imm Gran Pct Auto 0.4 % (0.0-0.4); Lymphocytes Absolute Auto 1.7 X10*3/uL (1.2-4.9); Lymphocytes Percent Auto 24.3 % (20-40); Mean Corpuscular HGB Conc 33.3 g/dl (31.0-36.0); Mean Corpuscular Hemoglobin 30.5 pg (27.0-33.0); Mean Corpuscular Volume 91.5 fL (80.0-98.0); Mean Platelet Volume 9.6 fL (9.4-12.4); Monocytes Absolute Auto 0.4 X10*3/uL (0.1-1.2); Monocytes Percent Auto 6.1 % (2-11); Neutrophils Absolute Auto 4.6 x10*3/uL (2.0-8.3); Neutrophils Percent Auto 67.1 % (45-73); Platelet Count 235 X10*3/uL (160-400); Red Blood Count 4.82 X10*6/uL (4.60-5.80); Red Cell Distribution Width 12.9 % (11.0-16.0); White Blood Count 6.9 X10*3/uL (4.8-10.8)
[2024-05-12 10:35] LABS: Alanine Aminotransferase 25 U/L (0-40); Alkaline Phosphatase 50 U/L (39-117); Anion Gap 10 (12-20); Aspartate Amino Transferase 24 U/L (5-37); Bilirubin Total 0.6 mg/dL (0.0-1.0); Blood Urea Nitrogen 13 mg/dL (9-16); Calcium 9.4 mg/dL (8.4-10.2); Carbon Dioxide 27 mmol/L (22-29); Chloride 105 mmol/L (96-108); Cholesterol 143 mg/dL (<200); Estimated Glomerular Filt Rate > 60; Glucose Fasting 150 mg/dL (60-99); HDL Cholesterol 41 mg/dL (>40); LDL Cholesterol Calculated 72 mg/dL (<100); Potassium 4.4 mmol/L (3.3-5.1); Sodium 138 mmol/L (135-145); Total Protein 7.6 g/dL (6.5-8.0); Triglycerides 154 mg/dL (<150)
[2024-05-12 10:39] LABS: Estimated Average Glucose 128 mg/dL; Hemoglobin A1C 161.5625 umol/L; Hemoglobin A1c % 6.1 % (<6.0); Total Hemoglobin (HGBA1C) 3704.2253 umol/L
[2024-05-12 10:48] LABS: Creatinine Urine 230.47 mg/dL; Microalbum/Creatinine Ratio Ur 12.1 ug/mg cr (<30)
== END 2024-05-12 09:11 | disposition home or self-care (01) ==
LOC: HO.HMGCLDS 09:10
PROVIDERS: PCP Internal Medicine; Visit Provider Internal Medicine
DX: E11.9 Type 2 diabetes mellitus without complications (principal); E78.5 Hyperlipidemia, unspecified; I10 Essential (primary) hypertension
CPT/HCPCS: 36415; 80053; 80061; 82043; 82570; 83036; 85025

== ENCOUNTER 2024-05-14 09:42 | Outpatient (AMB) | payer MEDICARE, MEDICAID, SELFPAY ==
[2024-05-14 10:15] VITALS: BP 128/80; PULSE 91; O2SAT 97; BMI 41.6
--- NOTE | 2024-05-14 10:15 | MHC.PC.OV ---
Vital Signs 05/14/24 10:15 Height 5 ft 9 in Weight 282 lb BMI 41.6 BP 128/80 Blood Pressure Location Lt brachial Position Sitting Pulse 91 Pulse Source Pulse Oximeter Pulse Oximetry (%) 97 Oxygen Delivery Method Room Air Intake Visit Reasons: Annual PE-needs lovenox bridge for colonoscopy Intake Note: Pt is here today for PE. Allergies A & D Allergy (Severe, Verified 05/14/24 10:19) anaphylaxis bacitracin [BACITRACIN] Allergy (Severe, Verified 05/14/24 10:19) SEIZURE , anaphylaxis Sulfa (Sulfonamide Antibiotics) Allergy (Mild, Verified 05/14/24 10:19) SWELLING adhesive tape Allergy (Verified 05/14/24 10:19) Rash atenolol Allergy (Verified 05/14/24 10:26) Heart block AV second degree dapagliflozin [From Farxiga] Adverse Reaction (Intermediate, Verified 05/14/24 10:19) Abdominal Pain dulaglutide [From Trulicity] Adverse Reaction (Intermediate, Verified 05/14/24 10:19) Diarrhea, vomiting lisinopril Adverse Reaction (Intermediate, Verified 05/14/24 10:19) Dizziness tirzepatide [From Mounjaro] Adverse Reaction (Verified 05/14/24 10:29) Constipation SSRI Adverse Reaction (Intermediate, Uncoded 05/14/24 10:19) DECREASE LIBIDO Medication List - Last Reconciled 05/14/24 by Esha Corbin MD blood sugar diagnostic ([employer] Ultra Test strips) test blood sugar once a day blood-glucose meter ([employer] Ultra2 Meter kit) As directed blood-glucose sensor ([employer] G7 Sensor device) As directed cholecalciferol (vitamin D3) (Vitamin D3) 25 mcg PO DAILY CPAP (CPAP Machine/Device) auto PAP 6-20 cm with heated humidification with needed supplies diphenhydramine HCl (Benadryl) 50 mg (2 x 25 mg) PO Q6H PRN lancets ([employer] UltraSoft Lancets) TID lancets ([employer] Delica Lancets) test blood sugar daily lancing device with lancets ([employer] Delica Lancing Device kit) testing blood sugar once daily metformin ER 1,500 mg PO DAILY simvastatin 40 mg PO DAILY warfarin 7.5 mg PO DAILY Tobacco use date assessed: 05/14/24 Dental Screening Dental Screen Date: 03/13/24 HPI Annual PE-needs lovenox bridge for colonoscopy HPI Details Pt presents for PE. [facility] Medical History (Updated 05/14/24 @ 14:17 by Esha Corbin MD) DM type 2 (diabetes mellitus, type 2) Factor 5 Leiden mutation, heterozygous Heart block AV second degree Vitamin B 12 deficiency Dizziness Annual physical exam Skin abnormalities STD (male) Venous (peripheral) insufficiency Obesity Hyperlipidemia PVD (peripheral vascular disease) Hypertension DVT (deep venous thrombosis) SOB (shortness of breath) Surgical History Hx of esophagogastroduodenoscopy Hx of colonoscopy H/O vascular surgery Family History Father CVD (cardiovascular disease) Mother CVD (cardiovascular disease) Daughter No problems noted. Son No problems noted. Social History Household Members: Spouse and Significant Other Housing: House Are you a primary acute care certified nursing assistant to a significant other at home: No Do you presently have visiting nurse or other home services: No Unable to assess alcohol history related to: Unknown Patient Tobacco Use Status: Former Tobacco user Tobacco use type: Cigarette e-Cigarette/Vaping Use: Never Used Second Hand Smoke Exposure: No (none) service: No Current occupational status: employed Cognitive needs: No Hearing needs: No Vision needs: No Questionnaire Thrive Questionnaire Date Thrive assessed: 03/13/24 I am a: Patient What is your living situation today?: I choose not to answer this question Within the past 12 months, did the food you bought not last and you didn't have the money to get more?: I choose not to answer this question Within the past 12 months, did you worry whether your food would run out before you got money to buy more?: I choose not to answer this question Do you have trouble paying for medicines?: I choose not to answer this question Do you have trouble getting transportation to medical appointments?: I choose not to answer this question Do you have trouble paying your heating and electricity bill?: I choose not to answer this question Do you have trouble taking care of your child, family member or friend?: I choose not to answer this question Do you have trouble with day-to-day activities such as bathing, preparing meals, shopping, managing finances, etc.?: I choose not to answer this question Are you currently unemployed and looking for a job?: I choose not to answer this question Are you interested in more education?: I choose not to answer this question Please select the resources that you would like help with: None Currently or been in a relationship where the following occur: I choose not to answer THRIVE Score: 0 AUDIT C Alcohol Use Questionnaire (AUDIT-C) 1. How often do you have a drink containing alcohol?: Monthly or less 2. How many drinks containing alcohol do you have on a typical day when you are drinking?: 1 or 2 3. How often do you have six or more drinks on one occasion?: Never Total Score: 1 ANISA-7 AMB Questionnaire ANISA-7 Date ANISA - 7 assessed: 03/13/24 Source: Developed by Drs. Marco Antonio Zhu, Ginger Freed, Se Bahena and colleagues, with an educational teresita from [employer]. Review of Systems Const All systems reviewed & are unremarkable except as noted in HPI and below Reports no additional complaints Eyes Reports no additional complaints ENT Reports no additional complaints Card Reports no additional complaints Resp Reports no additional complaints GI Reports no additional complaints Reports no additional complaints Physical exam (Primary Care) Vital Signs: Last Vital Signs Pulse 91 05/14/24 10:15 BP 128/80 05/14/24 10:15 Pulse Ox 97 05/14/24 10:15 Oxygen Delivery Method Room Air 05/14/24 10:15 BMI result Body Mass Index 41.6 Tobacco/Smoking Status: Tobacco use Status Tobacco use date assessed 05/14/24 05/14/24 10:23 Patient Tobacco Use Status Former Tobacco user 05/14/24 10:15 Tobacco use type Cigarette 05/14/24 10:15 e-Cigarette/Vaping Use Never Used 05/14/24 10:15 Thrive Assessment: Date of Thrive Assessment Date Thrive assessed 03/13/24 05/14/24 10:15 Currently or been in a relationship where the following occur: I choose not to answer Const General: no acute distress HENMT Head: Yes normal to inspection Ears: hearing grossly normal bilaterally Mouth: Normal oral and palatal mucosa present Eyes General: appearance normal, both eyes and all related structures Neck Neck: Yes no lymphadenopathy and Yes supple Resp Effort & Inspection: normal respiratory effort Auscultation: clear to auscultation bilaterally Cardio Rhythm: regular rhythm Heart sounds: S1 normal heart sound present and S2 normal heart sound present GI Inspection: Yes normal to inspection Palpation (GI): Soft to palpation Percussion: Yes normal to percussion Auscultation: normal bowel sounds Coding Level of Care Code Est Pt Prev Care 40-64y(89978) Diagnoses APOLLO (obstructive sleep apnea) G47.33 Annual physical exam Z00.00 Hyperlipidemia E78.5 Type 2 diabetes mellitus without complication, without long-term current use of insulin E11.9 Diabetes mellitus assisted insulin use: without termite control service representative use Diabetes mellitus complication status: without complication Factor 5 Leiden mutation, heterozygous D68.51 Colon cancer screening Z12.11 Assessment & Plan Assessment & Plan (1) APOLLO (obstructive sleep apnea): Comment: On CPAP Code(s): G47.33 - Obstructive sleep apnea (adult) (pediatric) Category: Medical Plan: cont C pap (2) Annual physical exam: Code(s): Z00.00 - Encounter for general adult medical examination without abnormal findings Category: Medical Plan: Decrease caloric intake increase physical activity weight loss discussed with the patient he is scheduled for repeat colonoscopy in July (3) Hyperlipidemia: Code(s): E78.5 - Hyperlipidemia, unspecified Category: Medical Plan: Continue statin (4) DM type 2 (diabetes mellitus, type 2): Code(s): E11.9 - Type 2 diabetes mellitus without complications Category: Medical Qualifiers: Diabetes mellitus assisted insulin use: without assisted use Diabetes mellitus complication status: without complication Qualified Code(s): E11.9 - Type 2 diabetes mellitus without complications Plan: A1c is 6.1, continue ADA diet metformin (5) Factor 5 Leiden mutation, heterozygous: Comment: on Warfarin Code(s): 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 The last injection before colonoscopy a day before the procedure and he can restart Lovenox 10 hours after colonoscopy and take 7.5 mg of warfarin. Patient will need INR checked 3 days after starting both medications and if INR is 2 or more Lovenox can be discontinued. (6) Colon cancer screening: Comment: Sep, 2021 colonoscopy showed diverticulosis and hemorrhoids.? Five small to medium-sized polyps were removed (2 TA and 3 hyperplastic polyps).? Repeat colonoscopy is advised in 2 years (due 09/2023) Code(s): Z12.11 - Encounter for screening for malignant neoplasm of colon Category: Medical Plan: Follow-up with GI Orders: Orders Comprehensive [place]. Panel Fast 6 Months E11.9 - Type 2 diabetes mellitus without complications, E78.5 - Hyperlipidemia, unspecified, G47.33 - Obstructive sleep apnea (adult) (pediatric) Hemoglobin A1c 6 Months E11.9 - Type 2 diabetes mellitus without complications, E78.5 - Hyperlipidemia, unspecified, G47.33 - Obstructive sleep apnea (adult) (pediatric) Microalbumin, Random (w Creat) 6 Months E11.9 - Type 2 diabetes mellitus without complications, E78.5 - Hyperlipidemia, unspecified, G47.33 - Obstructive sleep apnea (adult) (pediatric) Lipid Panel 6 Months E11.9 - Type 2 diabetes mellitus without complications, E78.5 - Hyperlipidemia, unspecified, G47.33 - Obstructive sleep apnea (adult) (pediatric) Medications: New enoxaparin (Lovenox) 190 mg (1.2667 mL) subcut DAILY 10 mL 0RF
== END 2024-05-14 11:18 | disposition home or self-care (01) ==
PROVIDERS: PCP Internal Medicine; Visit Provider Internal Medicine
DX: Z00.00 Encounter for general adult medical examination without abnormal findings (principal); E11.69 Type 2 diabetes mellitus with other specified complication; D68.51 Activated protein C resistance; G47.33 Obstructive sleep apnea (adult) (pediatric); E78.5 Hyperlipidemia, unspecified; Z12.11 Encounter for screening for malignant neoplasm of colon

== ENCOUNTER → 2024-05-14 09:42 | Outpatient (BNVA) | payer MEDICARE, MEDICAID, SELFPAY | PROVIDERS: PCP Internal Medicine; Visit Provider Internal Medicine | DX: Z00.01 Encounter for general adult medical examination with abnormal findings (principal); G47.33 Obstructive sleep apnea (adult) (pediatric); E78.5 Hyperlipidemia, unspecified; E11.9 Type 2 diabetes mellitus without complications; D68.51 Activated protein C resistance | CPT/HCPCS: 99396 ==

== ENCOUNTER 2024-05-17 20:20 | Emergency (ER) | payer MEDICARE, MEDICAID, SELFPAY ==
--- NOTE | ~2024-05-17 | XR_ITS ---
EXAMINATION: XR CHEST CLINICAL INFORMATION: Shortness of breath COMPARISON: Chest x-ray on 04/05/2024 TECHNIQUE: 2 views of the chest were obtained. FINDINGS: No significant abnormality is noted involving the heart, lungs, mediastinum, bony thorax or soft tissues. XR/XR chest 2V IMPRESSION: Unremarkable examination. Electronically signed by: Tracie Bowser MD 05/17/2024 09:20 PM EDT RP
[2024-05-17 20:24] VITALS: BP 170/104; PULSE 97; RESP 18; TEMP 36; O2SAT 99; BMI 41.2
--- NOTE | 2024-05-17 20:25 | ECG_ITS ---
Test Reason : sob Blood Pressure : / mmHG Vent. Rate : 082 BPM Atrial Rate : 094 BPM P-R Int : 276 ms QRS Dur : 072 ms QT Int : 362 ms P-R-T Axes : 058 -08 018 degrees QTc Int : 422 ms Sinus rhythm with marked sinus arrhythmia with 1st degree A-V block Otherwise normal ECG When compared with ECG of 10-APR-2024 05:00, No significant change was found Referred By: Jessy Reed Electronically Signed By:
--- NOTE | 2024-05-17 20:27 | ED.GENADULT ---
HPI - General Adult General Chief complaint: Chest Pain Stated complaint: chest pressure, sob, high bp Time Seen by Provider: 05/17/24 22:13 Source: patient Mode of arrival: ambulatory Limitations: no limitations History of Present Illness ED Provider: martin DINH narrative: Patient is 54 years old with history of hypertension type 2 diabetes hyperlipidemia obesity sleep apnea recent AV block secondary to beta caroline now in sinus rhythm also does not have a factor 5 Leiden deficiency with history of DVTs and PE on Coumadin had stress test on 04/17/2024 which was negative used to be on hydrochlorothiazide for many years which was stopped a month for last 1 week patient noticed blood pressure on the higher side, blood pressure on arrival was 170/104 repeat blood pressure 150/98 denies any chest pain or palpitation feel exertional dyspnea Related Data Home Medications ?Medication ?Instructions ?Recorded ?Confirmed cholecalciferol (vitamin D3) 25 25 mcg PO DAILY 03/09/24 05/14/24 mcg (1,000 unit) capsule (Vitamin D3) metformin 750 mg tablet,extended 1,500 mg PO DAILY 03/09/24 05/14/24 release 24 hr Previous Rx's ?Medication ?Instructions ?Recorded blood-glucose meter ([employer]such #1 ea 06/02/21 Ultra2 Meter kit) lancing device with lancets kit #1 ea 06/03/21 (OneTouch Delica Lancing Device kit) diphenhydramine HCl 25 mg capsule 50 mg (2 x 25 mg) PO Q6H PRN 10/04/21 (Benadryl) allergic reaction #20 caps lancets ([employer] GiveTouch UltraSoft #100 ea 07/19/22 Lancets) lancets 33 gauge (OneTouch Delica #100 ea 07/25/22 Lancets) CPAP (CPAP Machine/Device) #1 ea 08/24/22 blood sugar diagnostic (OneTouch #100 ea 02/08/23 Ultra Test strips) simvastatin 40 mg tablet 40 mg PO DAILY #90 tabs 08/12/23 warfarin 7.5 mg tablet 7.5 mg PO DAILY #90 tabs 12/28/23 blood-glucose sensor ([employer] G7 #2 ea 03/13/24 Sensor device) enoxaparin 150 mg/mL subcutaneous 190 mg (1.2667 mL) subcut DAILY 05/14/24 syringe (Lovenox) #10 mL losartan 50 mg tablet 50 mg PO DAILY #90 tabs 05/17/24 Allergies Allergy/AdvReac Type Severity Reaction Status Date / Time A & D Allergy Severe anaphylaxis Verified 05/17/24 20:27 bacitracin [BACITRACIN] Allergy Severe Verified 05/17/24 20:27 SEIZURE , anaphylaxis Sulfa (Sulfonamide Allergy Mild SWELLING Verified 05/17/24 20:27 Antibiotics) adhesive tape Allergy Rash Verified 05/17/24 20:27 atenolol Allergy Heart Verified 05/17/24 20:27 block AV second degree dapagliflozin [From Farxiga] AdvReac Intermediate Abdominal Verified 05/17/24 20:27 Pain dulaglutide [From Trulicity] AdvReac Intermediate Diarrhea, Verified 05/17/24 20:27 vomiting lisinopril AdvReac Intermediate Dizziness Verified 05/17/24 20:27 tirzepatide [From Mounjaro] AdvReac Constipatio Verified 05/17/24 20:27 n SSRI AdvReac Intermediate DECREASE Uncoded 05/14/24 10:19 LIBIDO Review of Systems Review of Systems: Yes all other systems are reviewed and are negative [facility] Past Medical History Medical History DM type 2 (diabetes mellitus, type 2) Factor 5 Leiden mutation, heterozygous Heart block AV second degree Vitamin B 12 deficiency Dizziness Annual physical exam Skin abnormalities STD (male) Venous (peripheral) insufficiency Obesity Hyperlipidemia PVD (peripheral vascular disease) Hypertension DVT (deep venous thrombosis) SOB (shortness of breath) Surgical History Hx of esophagogastroduodenoscopy Hx of colonoscopy H/O vascular surgery Family History Family History Father CVD (cardiovascular disease) Mother CVD (cardiovascular disease) Daughter No problems noted. Son No problems noted. Social History Social History Household Members: Spouse and Significant Other Housing: House Are you a primary care associate to a significant other at home: No Do you presently have visiting nurse or other home services: No Unable to assess alcohol history related to: Unknown Patient Tobacco Use Status: Former Tobacco user Tobacco use type: Cigarette e-Cigarette/Vaping Use: Never Used Second Hand Smoke Exposure: No (none) Advance Directives: No Advance Directives Information Provided: No service: No Current occupational status: employed Cognitive needs: No Hearing needs: No Vision needs: No Physical Exam ED Vital Signs: Vital Signs - 24 hr 05/17/24 20:24 05/17/24 22:22 05/17/24 22:47 Temperature 96.8 F 98.0 F Pulse Rate 97 77 Respiratory Rate 18 12 Blood Pressure 170/104 H 127/92 H 151/101 H Pulse Oximetry 99 96 Oxygen Delivery Method Room Air Room Air 05/17/24 23:20 Temperature 98.0 F Pulse Rate 86 Respiratory Rate 16 Blood Pressure 131/93 H Pulse Oximetry 97 Oxygen Delivery Method Room Air BMI result Body Mass Index 41.2 Appearance: Alert. Oriented X3. No acute distress. Obese Eyes: PERRLA, No Nystagmus ENT: Pharynx normal. Oral Mucosa moist Neck: Normal inspection. Neck supple. CVS: Normal heart rate and rhythm. Pulses normal. Respiratory: No respiratory distress. Equal air entry bilateral, no wheezing/rales/rhonchi Abdomen: Soft and nontender. Bowel sounds are present, no mass palpable, no CVA tenderness Skin: Skin warm and dry. Normal skin color. Normal skin turgor. Extremities: No lower extremity edema. No calf tenderness Neuro: Oriented X 3. No motor deficit. No sensory deficit.No cerebellar signs , cranial nerves II-XII intact Course Course Course Narrative: This is a Rapid Medical Examination (RME) performed by Corie Reed PA-C in triage. Full HPI, ROS, assessment and treatment plan per primary provider in the Main ED. 54 yo male hx of intermittent shortness of breath, chest pressure x4 days. Reports recent elevated BP. Recently taken off atenolol for AV heart block. Plan: Labs, chest x-ray, EKG Medications Administered Discontinued Medications Generic Name Dose Route Start Last Admin Trade Name Freq PRN Reason Stop Dose Admin Losartan Potassium 50 mg 05/17/24 22:36 05/17/24 22:47 Losartan Potassium 50 Mg Tablet PO 05/17/24 22:37 50 mg ONCE ONE Administration Protocol Medical Decision Making Medical Decision Making MDM Narrative: Patient with hypertension repeat blood pressure 159 used to be on hydrochlorothiazide which was done also use metal all which was also stop for heart block at this time there is no heart block blood pressure still elevated will start patient on losartan Lab Data MDM Lab Attestation statement: I reviewed the patient's lab results. 05/17/24 20:44 05/17/24 20:44 Labs: Lab Results 05/17/24 Range/Units 20:44 WBC 8.2 (4.8-10.8) X10*3/uL RBC 4.80 (4.60-5.80) X10*6/uL Hgb 14.7 (14.0-18.0) g/dl Hct 43.1 (42.0-52.0) % MCV 89.8 (80.0-98.0) fL MCH 30.6 (27.0-33.0) pg MCHC 34.1 (31.0-36.0) g/dl RDW 12.8 (11.0-16.0) % Plt Count 223 (160-400) X10*3/uL MPV 9.0 L (9.4-12.4) fL Immature Gran % (Auto) 0.2 (0.0-0.4) % Neut % (Auto) 63.4 (45-73) % Lymph % (Auto) 28.2 (20-40) % [place] % (Auto) 6.5 (2-11) % Eos % (Auto) 1.3 (0-4) % Baso % (Auto) 0.4 (0-2) % Lymph # (Auto) 2.3 (1.2-4.9) X10*3/uL [place] # (Auto) 0.5 (0.1-1.2) X10*3/uL Eos # (Auto) 0.1 (0.0-0.4) X10*3/uL Baso # (Auto) 0.0 (0.0-0.2) X10*3/uL Abs Immat Gran (auto) 0.02 (0.00-0.03) X10*3/uL Absolute Neuts (auto) 5.2 (2.0-8.3) x10*3/uL Absolute Nucleated RBC 0.000 (0.0-0.012) X10*3/uL Nucleated RBC % (auto) 0.0 (0.0-0.2) /100WBC PT 28.3 H (10.9-12.4) SEC INR 2.4 H (0.9-1.1) Sodium 136 (135-145) mmol/L Potassium 4.1 (3.3-5.1) mmol/L Chloride 103 (96-108) mmol/L Carbon Dioxide 24 (22-29) mmol/L Anion Gap 13 (12-20) BUN 14 (9-16) mg/dL Creatinine 0.90 (0.5-1.4) mg/dL Estim Creat Clear Calc 124.9 Estimated GFR > 60 Random Glucose 188 H (60-115) mg/dL Calcium 9.0 (8.4-10.2) mg/dL Magnesium 2.0 (1.6-2.6) mg/dL Total Bilirubin 0.5 (0.0-1.0) mg/dL AST 22 (5-37) U/L ALT 26 (0-40) U/L Alkaline Phosphatase 53 (39-117) U/L Troponin I High Sens < 2.7 (<3.5-35.0) ng/L B-Natriuretic Peptide < 10 (<100) pg/mL Total Protein 7.5 (6.5-8.0) g/dL Albumin 4.0 (3.5-5.0) g/dL Lipase 52 (8-78) U/L Influenza Type A (PCR) NEGATIVE (Negative) Influenza Type B (PCR) NEGATIVE (Negative) RSV RNA Qual (PCR) NEGATIVE (Negative) SARS-CoV-2 RNA (RT-PCR) NEGATIVE (Negative) Independent Interpretation I performed an independent interpretation of an: EKG Interpretation: Normal sinus rhythm heart rate 82 beats per minute first-degree heart block with SD interval 276 no acute STT wave changes no acute ischemia Discharge Plan Discharge Clinical Impression: Hypertension Patient Disposition: Home, Self-Care Instructions: Chronic Hypertension (DC) Additional Instructions: Decrease salt intake Start taking losartan 50 mg daily Check blood pressure before taking the medicine before going to bed it should be less than 135/85 Prescriptions: New losartan 50 mg tablet 50 mg PO DAILY Qty: 90 0RF No Action (DME) blood-glucose meter [[employer] Ultra2 Meter] Kit See Rx Instructions .Route Qty: 1 0RF Rx Instructions: As directed (DME) lancing device with lancets [OneTouch Delica Lanc Device] Kit See Rx Instructions .Route Qty: 1 0RF Rx Instructions: testing blood sugar once daily (DME) lancets [OneTouch Delica Lancets] 33 gauge misc See Rx Instructions .Route Qty: 100 3RF Rx Instructions: test blood sugar daily (DME) CPAP Machine/Device Device See Rx Instructions .Route Qty: 1 0RF Rx Instructions: auto PAP 6-20 cm with heated humidification with needed supplies (DME) OneTouch Ultra Test Strip See Rx Instructions .Route Qty: 100 3RF Rx Instructions: test blood sugar once a day simvastatin 40 mg tablet 40 mg PO DAILY Qty: 90 3RF warfarin 7.5 mg tablet 7.5 mg PO DAILY Qty: 90 1RF diphenhydramine HCl [Benadryl] 25 mg capsule 50 mg PO Q6H PRN (Reason: allergic reaction) Qty: 20 0RF cholecalciferol (vitamin D3) [Vitamin D3] 25 mcg (1,000 unit) Capsule 25 mcg PO DAILY metformin 750 mg tablet extended release 24 hr 1,500 mg PO DAILY (DME) lancets [OneTouch UltraSoft Lancets] [facility] [place] See Rx Instructions .ROUTE .MEDSUPPLY Qty: 100 6RF Rx Instructions: TID (DME) Dexcom G7 Sensor Device See Rx Instructions .Route Qty: 2 2RF Rx Instructions: As directed enoxaparin [Lovenox] 150 mg/mL syringe 190 mg subcut DAILY Qty: 10 0RF Interventions: ED Discharge Assessment Last Done: 05/17/24 23:20 Discharge Date/Time: 05/17/24 23:22 Print Language: Mauritian
[2024-05-17 20:54] LABS: MANUAL DIFF FLAG NO
[2024-05-17 20:57] LABS: Basophils Percent Auto 0.4 % (0-2); Eosinophils Absolute Auto 0.1 X10*3/uL (0.0-0.4); Eosinophils Percent Auto 1.3 % (0-4); Hematocrit 43.1 % (42.0-52.0); Hemoglobin 14.7 g/dl (14.0-18.0); Imm Gran Abs Auto 0.02 X10*3/uL (0.00-0.03); Imm Gran Pct Auto 0.2 % (0.0-0.4); Lymphocytes Absolute Auto 2.3 X10*3/uL (1.2-4.9); Lymphocytes Percent Auto 28.2 % (20-40); Mean Corpuscular HGB Conc 34.1 g/dl (31.0-36.0); Mean Corpuscular Hemoglobin 30.6 pg (27.0-33.0); Mean Corpuscular Volume 89.8 fL (80.0-98.0); Monocytes Absolute Auto 0.5 X10*3/uL (0.1-1.2); Monocytes Percent Auto 6.5 % (2-11); Neutrophils Absolute Auto 5.2 x10*3/uL (2.0-8.3); Neutrophils Percent Auto 63.4 % (45-73); Platelet Count 223 X10*3/uL (160-400); Red Cell Distribution Width 12.8 % (11.0-16.0); White Blood Count 8.2 X10*3/uL (4.8-10.8)
[2024-05-17 21:01] LABS: INTERNATIONAL NORM RATIO 2.4 (0.9-1.1); Prothrombin Time 28.3 SEC (10.9-12.4)
[2024-05-17 21:10] LABS: Alanine Aminotransferase 26 U/L (0-40); Alkaline Phosphatase 53 U/L (39-117); Anion Gap 13 (12-20); Aspartate Amino Transferase 22 U/L (5-37); Bilirubin Total 0.5 mg/dL (0.0-1.0); Blood Urea Nitrogen 14 mg/dL (9-16); Carbon Dioxide 24 mmol/L (22-29); Chloride 103 mmol/L (96-108); Creatinine Clr Calc Pharmacy 124.9; Estimated Glomerular Filt Rate > 60; Glucose Random 188 mg/dL (60-115); Lipase 52 U/L (8-78); Potassium 4.1 mmol/L (3.3-5.1); Sodium 136 mmol/L (135-145); Total Protein 7.5 g/dL (6.5-8.0)
[2024-05-17 21:15] LABS: B Type Natriuretic Peptide < 10 pg/mL (<100)
[2024-05-17 21:17] LABS: Troponin-I High Sensitivity < 2.7 ng/L (<3.5-35.0)
[2024-05-17 22:09] LABS: Influenza A PCR NEGATIVE (Negative); Influenza B PCR NEGATIVE (Negative); Resp Syncy Virus RNA Qual PCR NEGATIVE (Negative); SARS COV2 PCR INHOUSE NEGATIVE (Negative)
[2024-05-17 22:22] VITALS: BP 127/92; PULSE 77; RESP 12; TEMP 36.7; O2SAT 96
[2024-05-17 22:47] VITALS: BP 151/101
[2024-05-17] MEDS: Losartan Potassium 50 MG TABLET PO (22:47)
[2024-05-17 23:20] VITALS: BP 131/93; PULSE 86; RESP 16; TEMP 36.7; O2SAT 97
== END 2024-05-17 23:22 | disposition home or self-care (01) ==
PROVIDERS: Physician Assistant Medical; Emergency Provider Internal Medicine; PCP Internal Medicine
DX: I10 Essential (primary) hypertension (principal); R06.02 Shortness of breath; Z03.818 Encounter for observation for suspected exposure to other biological agents ruled out
CPT/HCPCS: 0241U; 36415; 71046; 80053; 83690; 83735; 83880; 84484; 85025; 85610; 93005; 99283; 99284

== ENCOUNTER 2024-05-22 08:51 | Outpatient (AMB) | payer MEDICARE, MEDICAID, SELFPAY ==
[2024-05-22 08:54] VITALS: BP 128/74; PULSE 81; O2SAT 98; BMI 41.9
--- NOTE | 2024-05-22 08:54 | A.OFFPC_ITS ---
Vital Signs 05/22/24 08:54 Height 5 ft 9 in Weight 284 lb BMI 41.9 BP 128/74 Blood Pressure Location Rt brachial Position Sitting Pulse 81 Pulse Source Pulse Oximeter Pulse Oximetry (%) 98 Oxygen Delivery Method Room Air Intake Visit Re[place] [facility] [place] Note: Pt is here today for a ER follow up visit.Pt states that his BP gets elevated after walking. Allergies A & D Allergy (Severe, Verified 05/22/24 09:03) anaphylaxis bacitracin [BACITRACIN] Allergy (Severe, Verified 05/22/24 09:03) SEIZURE , anaphylaxis Sulfa (Sulfonamide Antibiotics) Allergy (Mild, Verified 05/22/24 09:03) SWELLING adhesive tape Allergy (Verified 05/22/24 09:03) Rash atenolol Allergy (Verified 05/22/24 09:03) Heart block AV second degree dapagliflozin [From Farxiga] Adverse Reaction (Intermediate, Verified 05/22/24 09:03) Abdominal Pain dulaglutide [From Trulicity] Adverse Reaction (Intermediate, Verified 05/22/24 09:03) Diarrhea, vomiting lisinopril Adverse Reaction (Intermediate, Verified 05/22/24 09:03) Dizziness tirzepatide [From Mounjaro] Adverse Reaction (Verified 05/22/24 09:03) Constipation SSRI Adverse Reaction (Intermediate, Uncoded 05/22/24 09:03) DECREASE LIBIDO Tobacco use date assessed: 05/14/24 Dental Screening Dental Screen Date: 03/13/24 [place] [facility] [place] H[place] Details Patient presents for the follow-up for ER visit for elevated blood pressure. Patient has been checking his blood pressure at home and getting readings over 200/100. He had no chest pain palpitations at the time. The workup was negative patient was started on losartan 3 days ago. He is tolerating medication well so far. Patient has been checking his blood pressure multiple times during the day with the highest reading of 160/80. Type 2 diabetes is stable on metformin [facility] Medical History (Updated 05/22/24 @ 09:33 by Esha Corbin MD) Hypertension DM type 2 (diabetes mellitus, type 2) Factor 5 Leiden mutation, heterozygous Heart block AV second degree Vitamin B 12 deficiency Dizziness Annual physical exam Skin abnormalities STD (male) Venous (peripheral) insufficiency Obesity Hyperlipidemia PVD (peripheral vascular disease) DVT (deep venous thrombosis) SOB (shortness of breath) Surgical History Hx of esophagogastroduodenoscopy Hx of colonoscopy H/O vascular surgery Family History Father CVD (cardiovascular disease) Mother CVD (cardiovascular disease) Daughter No problems noted. Son No problems noted. Social History Household Members: Spouse and Significant Other Housing: House Are you a primary aged or disabled carer to a significant other at home: No Do you presently have visiting nurse or other home services: No Unable to assess alcohol history related to: Unknown Patient Tobacco Use Status: Former Tobacco user Tobacco use type: Cigarette e-Cigarette/Vaping Use: Never Used Second Hand Smoke Exposure: No (none) service: No Current occupational status: employed Cognitive needs: No Hearing needs: No Vision needs: No Questionnaire Thrive Questionnaire Date Thrive assessed: 03/13/24 I am a: Patient What is your living situation today?: I choose not to answer this question Within the past 12 months, did the food you bought not last and you didn't have the money to get more?: I choose not to answer this question Within the past 12 months, did you worry whether your food would run out before you got money to buy more?: I choose not to answer this question Do you have trouble paying for medicines?: I choose not to answer this question Do you have trouble getting transportation to medical appointments?: I choose not to answer this question Do you have trouble paying your heating and electricity bill?: I choose not to answer this question Do you have trouble taking care of your child, family member or friend?: I choose not to answer this question Do you have trouble with day-to-day activities such as bathing, preparing meals, shopping, managing finances, etc.?: I choose not to answer this question Are you currently unemployed and looking for a job?: I choose not to answer this question Are you interested in more education?: I choose not to answer this question Please select the resources that you would like help with: None Currently or been in a relationship where the following occur: I choose not to answer THRIVE Score: 0 ANSIA-7 AMB Questionnaire ANISA-7 Date ANISA - 7 assessed: 03/13/24 Source: Developed by Drs. Marco Antonio Zhu, Ginger Freed, Se Bahena and colleagues, with an educational teresita from [employer]. Review of Systems Const All systems reviewed & are unremarkable except as noted in HPI and below Card Reports no additional complaints Resp Reports no additional complaints GI Reports no additional complaints Reports no additional complaints Physical exam (Primary Care) Vital Signs: Last Vital Signs Pulse 81 05/22/24 08:54 BP 128/74 05/22/24 08:54 Pulse Ox 98 05/22/24 08:54 Oxygen Delivery Method Room Air 05/22/24 08:54 BMI result Body Mass Index 41.9 Tobacco/Smoking Status: Tobacco use Status Tobacco use date assessed 05/14/24 05/22/24 08:54 Patient Tobacco Use Status Former Tobacco user 05/22/24 08:54 Tobacco use type Cigarette 05/22/24 08:54 e-Cigarette/Vaping Use Never Used 05/22/24 08:54 Thrive Assessment: Date of Thrive Assessment Date Thrive assessed 03/13/24 05/22/24 08:54 Currently or been in a relationship where the following occur: I choose not to answer Const General: no acute distress HENMT Face and sinus: Yes normal facial exam Eyes General: appearance normal, both eyes and all related structures Neck Neck: Yes supple Resp Effort & Inspection: normal respiratory effort Auscultation: clear to auscultation bilaterally Cardio Rhythm: regular rhythm Heart sounds: S1 normal heart sound present and S2 normal heart sound present Coding Level of Care Code Est Pt Level 3 (41729) Diagnoses Type 2 diabetes mellitus without complication, without long-term current use of insulin E11.9 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 insulin use: without predatory animal exterminator use Diabetes mellitus complication status: without complication Primary hypertension I10 Hypertension type: primary hypertension Assessment & Plan Assessment & Plan (1) DM type 2 (diabetes mellitus, type 2): Code(s): E11.9 - Type 2 diabetes mellitus without complications Category: Medical Qualifiers: 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
== END 2024-05-22 09:34 | disposition home or self-care (01) ==
PROVIDERS: PCP Internal Medicine; Visit Provider Internal Medicine
DX: E11.9 Type 2 diabetes mellitus without complications (principal); I10 Essential (primary) hypertension

== ENCOUNTER → 2024-05-22 08:51 | Outpatient (BNVA) | payer MEDICARE, MEDICAID, SELFPAY | PROVIDERS: PCP Internal Medicine; Visit Provider Internal Medicine | DX: E11.9 Type 2 diabetes mellitus without complications (principal); I10 Essential (primary) hypertension; Z79.84 Long term (current) use of oral hypoglycemic drugs; Z79.899 Other long term (current) drug therapy | CPT/HCPCS: 99212 ==

== ENCOUNTER 2024-05-26 13:21 | Outpatient (AMB) | payer MEDICARE, MEDICAID, SELFPAY ==
[2024-05-26 13:37] VITALS: BP 120/78; PULSE 85; BMI 41.7
--- NOTE | 2024-05-26 13:37 | MHC.OFFVIS ---
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 Required: No Dairy Consultant: Dairy Consultant Present Accompanied by: Spouse Allergies A & D Allergy (Severe, Verified 05/22/24 09:03) anaphylaxis bacitracin [BACITRACIN] Allergy (Severe, Verified 05/22/24 09:03) SEIZURE , anaphylaxis Sulfa (Sulfonamide Antibiotics) Allergy (Mild, Verified 05/22/24 09:03) SWELLING adhesive tape Allergy (Verified 05/22/24 09:03) Rash atenolol Allergy (Verified 05/22/24 09:03) Heart block AV second degree dapagliflozin [From Farxiga] Adverse Reaction (Intermediate, Verified 05/22/24 09:03) Abdominal Pain dulaglutide [From Trulicity] Adverse Reaction (Intermediate, Verified 05/22/24 09:03) Diarrhea, vomiting lisinopril Adverse Reaction (Intermediate, Verified 05/22/24 09:03) Dizziness tirzepatide [From Mounjaro] Adverse Reaction (Verified 05/22/24 09:03) Constipation SSRI Adverse Reaction (Intermediate, Uncoded 05/22/24 09:03) DECREASE LIBIDO Medication List - Last Reconciled 05/26/24 by Cheryl Queen DOT 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-C blood sugar diagnostic ([employer] Ultra Test strips) test blood sugar once a day blood-glucose meter ([employer] Ultra2 Meter kit) As directed blood-glucose sensor ([employer] G7 Sensor device) As directed cholecalciferol (vitamin D3) (Vitamin D3) 25 mcg PO DAILY CPAP (CPAP Machine/Device) auto PAP 6-20 cm with heated humidification with needed supplies diphenhydramine HCl (Benadryl) 50 mg (2 x 25 mg) PO Q6H PRN enoxaparin (Lovenox) 40 mg (0.4 mL) subcut DAILY enoxaparin (Lovenox) 150 mg subcut DAILY lancets ([employer] UltraSoft Lancets) TID lancets ([employer] Delica Lancets) test blood sugar daily lancing device with lancets ([employer] Lancing Device kit) testing blood sugar once daily losartan 50 mg PO DAILY metformin ER 1,500 mg PO DAILY simvastatin 40 mg PO DAILY warfarin 7.5 mg PO DAILY HPI HPI [facility] [place] ed for tachycardia: Details: Jameel is a 54-year-old male with past medical history of morbid obesity, hyperlipidemia, diabetes, factor 5 Leiden who presented to the [facility] emergency room 03/09/24 with weakness and low heart rate. An EKG showed second-degree heart block with 2-1 conduction. He was evaluated by Dr. Herrmann for Cardiology and his atenolol was then stopped. His heart rate and rhythm did improve. He then had an ER visit for heart palpitations and tachycardia. He was thought to be rebound tachycardia from stopping the beta-caroline. An outpatient cardiac event monitor showed SR/ ST, brief Mobitz 1 during sleep and exercise nuclear stress test showed normal perfusion imaging. He was seen in the ED again on 05/17 with retention. Losartan was added. Today he reports that he his blood pressure has been better since taking losartan. He has been noticing rapid heartbeats when he lays down in bed that can persist for a few minutes as he settles down. He is not noticing heart palpitations in the daytime. He has a smart watch which tells him his heart rates. At the times he can feel it go fast he says his heart rate is as high as 120s for no obvious reason. No recurrent lightheadedness, weakness, presyncope, syncope. No chest discomfort at rest or with activity. No shortness of breath, PND, orthopnea or edema. He has been walking regularly trying to lose weight. Is on Mounjaro and tells me he has lost approximately 40 lb. [facility] Medical History Hypertension DM type 2 (diabetes mellitus, type 2) Factor 5 Leiden mutation, heterozygous Heart block AV second degree Vitamin B 12 deficiency Dizziness Annual physical exam Skin abnormalities STD (male) Venous (peripheral) insufficiency Obesity Hyperlipidemia PVD (peripheral vascular disease) DVT (deep venous thrombosis) SOB (shortness of breath) Surgical History Hx of esophagogastroduodenoscopy Hx of colonoscopy H/O vascular surgery Family History Father CVD (cardiovascular disease) Mother CVD (cardiovascular disease) Daughter No problems noted. Son No problems noted. Social History Household Members: Spouse and Significant Other Housing: House Are you a primary patient centered care specialist to a significant other at home: No Do you presently have visiting nurse or other home services: No Unable to assess alcohol history related to: Unknown Patient Tobacco Use Status: Former Tobacco user Tobacco use type: Cigarette e-Cigarette/Vaping Use: Never Used Second Hand Smoke Exposure: No (none) service: No Current occupational status: employed Cognitive needs: No Hearing needs: No Vision needs: No Review of Systems Const All systems reviewed & are unremarkable except as noted in HPI and below Denies chills, Denies fatigue, Denies fever(s), Denies frequent falls, Denies weakness, Denies weight gain and Denies weight loss ENT Denies dizziness Card Denies chest pain, Denies leg edema, Denies lightheadedness, Denies palpitations, Denies dyspnea, Denies dyspnea on exertion, Denies orthopnea and Denies other (loss of consciousness) Resp Denies cough, Denies dyspnea and Denies dyspnea on exertion GI Denies hematochezia and Denies change in stool character Musc Denies abnormal gait, Denies muscle weakness, Denies numbness, Denies radiating pain into limb and Denies tingling Neuro Denies abnormal gait, Denies dizziness, Denies frequent falls, Denies numbness, Denies tingling and Denies weakness Endo Denies fatigue and Denies palpitations Physical Exam Vital Signs: Last Vital Signs Pulse 85 05/26/24 13:37 BP 120/78 05/26/24 13:37 BMI result Body Mass Index 41.7 Const General: cooperative, healthy appearing (Morbidly obese), comfortable and no acute distress Orientation/consciousness: patient oriented x3 Neck Neck: Yes normal visual inspection and Yes no JVD Resp Effort & Inspection: normal respiratory effort Auscultation: clear to auscultation bilaterally, no crackles, no rales, no rhonchi and no wheezes Cardio Jugular venous distension: no JVD Rate: regular rate Rhythm: regular rhythm Heart sounds: S1 normal heart sound present, S2 normal heart sound present, no murmurs and no rubs Neuro General: patient oriented x3 Extrem General: Yes normal to inspection, No no pedal edema and No calf tenderness Psych Appearance: grossly normal Mental Status: mental status grossly normal Speech and movement: Normal speech and movement present Assessment & Plan Assessment & Plan (1) Heart block AV second degree: Comment: on Atenolol, admitted to [facility], resolved after stopping Atenolol 03/29 Code(s): I44.1 - Atrioventricular block, second degree Category: Medical Plan: ER visit 03/09/2024 with weakness, slow heart rate and EKG showed second-degree heart block, 2-1 conduction, rate 42. He was on atenolol which was stopped. He was monitored overnight and his rate and rhythm did improve. Did have an exercise stress test on 03/10/2024 showing exercise 5 minutes with moderate shortness of breath, achieving 98% MPHR, no ischemic changes. He did have an ER visit 2 weeks later for heart palpitations which was thought to be rebound tachycardia from stopping the beta-caroline. He wore a cardiac event monitor for 14 out of 30 days starting on 03/14/2024 showing sinus rhythm with average heart rate 85, 27% of the time greater than 100, rare ventricular ectopy, one 4 beat run, Mobitz type 1 second-degree AV block noted during overnight hours. Symptom of chest pressure and dizziness associated with sinus rhythm. An exercise nuclear stress test was done on 04/17/2024 with exercise 5 minutes, moderate shortness of breath, no EKG changes and normal myocardial perfusion imaging. He was in the ER again last week with elevated blood pressure and was started on losartan. Today he reports that he has been getting heart palpitations when he 1st lays down in bed at night. This is causing him concern. He is wondering if he needs to have beta-caroline restarted at lower dose. Informed him that he is likely feeling sinus rhythm/sinus tachycardia and that he is more apt to feel his heart beating when he is resting quietly in bed. He is interested in further evaluation. Will do a 3 day monitor to assess for average heart rates and burden of sinus tach/arrhythmia. He has known sleep apnea and is compliant with his CPAP. Instructed to maintain good hydration, get adequate rest, limit caffeinated beverages to 1 daily, physical activity as tolerated. Will keep off rate slowing agents at this time. Cardiology follow-up 3-4 months, sooner if needed. (2) Hypertension: Comment: Could not tolerate lisinopril causes dizziness, atenolol caused second-degree AV Code(s): I10 - Essential (primary) hypertension Category: Medical Qualifiers: Hypertension type: primary hypertension Qualified Code(s): I10 - Essential (primary) hypertension Plan: Recent ER visit with elevated blood pressure, 170/104. He was previously on atenolol which was stopped due to heart block as above. He was started on losartan 50 mg daily, at time of ER visit. Labs done that day showed potassium 4.1, creatinine 0.9. Blood pressure normal today. He tells me his home blood pressures have been much better controlled. Low-salt diet reviewed. He will continue to monitor blood pressures at home. (3) APOLLO (obstructive sleep apnea): Comment: On CPAP Code(s): G47.33 - Obstructive sleep apnea (adult) (pediatric) Category: Medical Plan: He reports compliance with his CPAP mask. 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 (5) Hospital discharge follow-up: Code(s): Z09 - Encounter for follow-up examination after completed treatment for conditions other than malignant neoplasm Category: Medical Plan: ER visits as above (6) Palpitation: Code(s): R00.2 - Palpitations Category: Medical Plan: Reports of heart palpitations as above. Holter ordered Plan Time spent on chart review, documentation, interview and assessment Orders: Orders ECG 3 day holter monitor 05/26/24 I44.1 - Atrioventricular block, second degree, R00.2 - Palpitations Coding Level of Care Code Est Pt Level 4 (81847) Complex EM visit Add On G2211 Diagnoses Heart block AV second degree I44.1 Primary hypertension I10 Hypertension type: primary hypertension APOLLO (obstructive sleep apnea) G47.33 Factor 5 Leiden mutation, heterozygous D68.51 Hospital discharge follow-up Z09 Palpitation R00.2 Time Spent (min) 32
== END 2024-05-26 16:05 | disposition home or self-care (01) ==
PROVIDERS: PCP Internal Medicine; Visit Provider Nurse Practitioner Family
DX: I44.1 Atrioventricular block, second degree (principal); I10 Essential (primary) hypertension; G47.33 Obstructive sleep apnea (adult) (pediatric); D68.51 Activated protein C resistance; Z09 Encounter for follow-up examination after completed treatment for conditions other than malignant neoplasm; R00.2 Palpitations
CPT/HCPCS: 99214; G2211

== ENCOUNTER → 2024-05-26 13:21 | Outpatient (BNVA) | payer MEDICARE, MEDICAID, SELFPAY | PROVIDERS: PCP Internal Medicine; Visit Provider Nurse Practitioner Family | DX: Z09 Encounter for follow-up examination after completed treatment for conditions other than malignant neoplasm (principal); I44.1 Atrioventricular block, second degree; R00.2 Palpitations; I10 Essential (primary) hypertension; D68.51 Activated protein C resistance; G47.33 Obstructive sleep apnea (adult) (pediatric) | CPT/HCPCS: 99212 ==

== ENCOUNTER → 2024-05-30 07:49 | Outpatient (REF) | payer MEDICARE, MEDICAID, SELFPAY ==
--- NOTE | 2024-05-30 07:51 | HM_ITS ---
Conclusion: 1. Patient was monitored for total period of 2 days and 21 hours 2. Baseline was normal sinus rhythm with average heart of 85 beats per minute 3. 1 episode of Mobitz type 1 second-degree AV block noted 4. No significant arrhythmias or pauses noted 5. Patient marked the counter 2 times with no arrhythmias with underlying normal sinus rhythm MTDD
== END ==
LOC: HO.CARD 07:49
PROVIDERS: PCP Internal Medicine; Visit Provider Nurse Practitioner Family
DX: R00.2 Palpitations (principal); I44.1 Atrioventricular block, second degree
CPT/HCPCS: 93242

== ENCOUNTER → 2024-05-30 07:51 | Outpatient (BNV) | payer MEDICARE, MEDICAID, SELFPAY | PROVIDERS: PCP Internal Medicine; Visit Provider Internal Medicine Cardiovascular Disease | DX: I44.1 Atrioventricular block, second degree (principal) | CPT/HCPCS: 93244 ==

== ENCOUNTER 2024-07-06 14:37 | Emergency (ER) | payer MEDICARE, MEDICAID, SELFPAY ==
[2024-07-06 14:47] VITALS: BP 148/102; PULSE 84; RESP 20; TEMP 35.8; O2SAT 99; BMI 41.6
--- NOTE | 2024-07-06 14:47 | ED_ITS ---
HPI - General Adult General Chief complaint: Weakness Stated complaint: weak/dizzy Time Seen by Provider: 07/06/24 19:48 Source: patient Mode of arrival: ambulatory Limitations: no limitations History of Present Illness ED Provider: HPI narrative: Patient is diabetic with nonspecific multiple complaints saying that his spasm of the right side of the face felt dizzy while getting off the couch earlier now is feeling much better no motor weakness no headache no nausea no vomiting no fever Related Data Home Medications ?Medication ?Instructions ?Recorded ?Confirmed cholecalciferol (vitamin D3) 25 25 mcg PO DAILY 03/09/24 05/26/24 mcg (1,000 unit) capsule (Vitamin D3) metformin 750 mg tablet,extended 1,500 mg PO DAILY 03/09/24 05/26/24 release 24 hr Previous Rx's ?Medication ?Instructions ?Recorded blood-glucose meter ([employer]oversTouch #1 ea 06/02/21 Ultra2 Meter kit) lancing device with lancets kit #1 ea 06/03/21 ([employer] Delica Lancing Device kit) diphenhydramine HCl 25 mg capsule 50 mg (2 x 25 mg) PO Q6H PRN 10/04/21 (Benadryl) allergic reaction #20 caps lancets ([employer] UltraSoft #100 ea 07/19/22 Lancets) lancets 33 gauge (OneTouch Delica #100 ea 07/25/22 Lancets) CPAP (CPAP Machine/Device) #1 ea 08/24/22 blood sugar diagnostic (OneTouch #100 ea 02/08/23 Ultra Test strips) simvastatin 40 mg tablet 40 mg PO DAILY #90 tabs 08/12/23 warfarin 7.5 mg tablet 7.5 mg PO DAILY #90 tabs 12/28/23 blood-glucose sensor ([employer]ex[employer] G7 #2 ea 03/13/24 Sensor device) losartan 50 mg tablet 50 mg PO DAILY #90 tabs 05/17/24 enoxaparin 150 mg/mL subcutaneous 150 mg subcut DAILY #10 mL 05/21/24 syringe (Lovenox) enoxaparin 40 mg/0.4 mL 40 mg (0.4 mL) subcut DAILY #4 mL 05/21/24 subcutaneous syringe (Lovenox) gabapentin 300 mg capsule 300 mg PO BEDTIME #30 caps 07/06/24 Allergies Allergy/AdvReac Type Severity Reaction Status Date / Time A & D Allergy Severe anaphylaxis Verified 07/06/24 14:49 bacitracin [BACITRACIN] Allergy Severe Verified 07/06/24 14:49 SEIZURE , anaphylaxis Sulfa (Sulfonamide Allergy Mild SWELLING Verified 07/06/24 14:49 Antibiotics) adhesive tape Allergy Rash Verified 07/06/24 14:49 atenolol Allergy Heart Verified 07/06/24 14:49 block AV second degree dapagliflozin [From Farxiga] AdvReac Intermediate Abdominal Verified 05/22/24 09:03 Pain dulaglutide [From Trulicity] AdvReac Intermediate Diarrhea, Verified 07/06/24 14:49 vomiting lisinopril AdvReac Intermediate Dizziness Verified 07/06/24 14:49 tirzepatide [From Mounjaro] AdvReac Constipatio Verified 07/06/24 14:49 n SSRI AdvReac Intermediate DECREASE Uncoded 07/06/24 14:49 LIBIDO Review of Systems 2 Review of Systems: Yes all other systems are reviewed and are negative PMFSH Past Medical History Medical History Hypertension DM type 2 (diabetes mellitus, type 2) Factor 5 Leiden mutation, heterozygous Heart block AV second degree Vitamin B 12 deficiency Dizziness Annual physical exam Skin abnormalities STD (male) Venous (peripheral) insufficiency Obesity Hyperlipidemia PVD (peripheral vascular disease) DVT (deep venous thrombosis) SOB (shortness of breath) Surgical History Hx of esophagogastroduodenoscopy Hx of colonoscopy H/O vascular surgery Family History Family History Father CVD (cardiovascular disease) Mother CVD (cardiovascular disease) Daughter No problems noted. Son No problems noted. Social History Social History Household Members: Spouse and Significant Other Housing: House Are you a primary manager medicare marketing to a significant other at home: No Do you presently have visiting nurse or other home services: No Unable to assess alcohol history related to: Unknown Patient Tobacco Use Status: Former Tobacco user Tobacco use type: Cigarette e-Cigarette/Vaping Use: Never Used Second Hand Smoke Exposure: No (none) service: No Current occupational status: employed Cognitive needs: No Hearing needs: No Vision needs: No Physical Exam ED Vital Signs: Vital Signs - 24 hr 07/06/24 14:47 07/06/24 19:24 07/06/24 20:00 Temperature 96.5 F L 98.2 F 98.4 F Pulse Rate 84 75 75 Respiratory Rate 20 20 16 Blood Pressure 148/102 H 124/75 138/85 Pulse Oximetry 99 96 98 Oxygen Delivery Method Room Air Room Air Room Air 07/06/24 20:57 Temperature 98.4 F Pulse Rate 75 Respiratory Rate 16 Blood Pressure 138/85 Pulse Oximetry 98 Oxygen Delivery Method Room Air BMI result Body Mass Index 41.6 Appearance: Alert. Oriented X3. No acute distress. Eyes: PERRLA, No Nystagmus ENT: Pharynx normal. Oral Mucosa moist Neck: Normal inspection. Neck supple. CVS: Normal heart rate and rhythm. Pulses normal. Respiratory: No respiratory distress. Equal air entry bilateral, no wheezing/rales/rhonchi Abdomen: Soft and nontender. Bowel sounds are present, no mass palpable, no CVA tenderness Skin: Skin warm and dry. Normal skin color. Normal skin turgor. Extremities: No lower extremity edema. No calf tenderness Neuro: Oriented X 3. No motor deficit. No sensory deficit.No cerebellar signs , cranial nerves II-XII intact Course Course Course Narrative: RME performed by Jael Chou PA-C. Patient is a 54 year old assigned male at presenting to the emergency department with weakness and feeling wobbly . Patient states every now and then he gets some weakness and is currently having one of those episodes where both of his legs feel weak. Patient states that he was dizzy earlier today but isn't currently. Detailed physical exam and review of systems are deferred to the behavior clinician. EKG, labs, and swabs ordered. Patient placed back in the waiting room pending room availability and results. Medications Administered Discontinued Medications Generic Name Dose Route Start Last Admin Trade Name Freq PRN Reason Stop Dose Admin Gabapentin 300 mg 07/06/24 20:20 07/06/24 20:33 Gabapentin 300 Mg Capsule PO 07/06/24 20:21 300 mg ONCE ONE Administration Medical Decision Making Medical Decision Making [facility] Narrative: Patient nonspecific complaints vitals are stable no objective findings of sensory loss will prescribe gabapentin neuropathy Differential Diagnosis Differential Diagnoses: The differential diagnosis associated with the presentation includes Lab Data MDM Lab Attestation statement: I reviewed the patient's lab results. 07/06/24 15:26 07/06/24 15:26 Labs: Lab Results 07/06/24 07/06/24 Range/Units 15:26 19:17 WBC 8.1 (4.8-10.8) X10*3/uL RBC 4.96 (4.60-5.80) X10*6/uL Hgb 15.1 (14.0-18.0) g/dl Hct 44.4 (42.0-52.0) % MCV 89.5 (80.0-98.0) fL MCH 30.4 (27.0-33.0) pg MCHC 34.0 (31.0-36.0) g/dl RDW 12.8 (11.0-16.0) % Plt Count 236 (160-400) X10*3/uL MPV 9.1 L (9.4-12.4) fL Immature Gran % (Auto) 0.2 (0.0-0.4) % Neut % (Auto) 68.1 (45-73) % Lymph % (Auto) 24.2 (20-40) % [place] % (Auto) 5.7 (2-11) % Eos % (Auto) 1.2 (0-4) % Baso % (Auto) 0.6 (0-2) % Lymph # (Auto) 2.0 (1.2-4.9) X10*3/uL [place] # (Auto) 0.5 (0.1-1.2) X10*3/uL Eos # (Auto) 0.1 (0.0-0.4) X10*3/uL Baso # (Auto) 0.1 (0.0-0.2) X10*3/uL Abs Immat Gran (auto) 0.02 (0.00-0.03) X10*3/uL Absolute Neuts (auto) 5.5 (2.0-8.3) x10*3/uL Absolute Nucleated RBC 0.000 (0.0-0.012) X10*3/uL Nucleated RBC % (auto) 0.0 (0.0-0.2) /100WBC Sodium 133 L (135-145) mmol/L Potassium 4.5 (3.3-5.1) mmol/L Chloride 100 (96-108) mmol/L Carbon Dioxide 23 (22-29) mmol/L Anion Gap 15 (12-20) BUN 16 (9-16) mg/dL Creatinine 1.02 (0.5-1.4) mg/dL Estim Creat Clear Calc 110.8 Estimated GFR > 60 Random Glucose 210 H (60-115) mg/dL Calcium 9.5 (8.4-10.2) mg/dL Magnesium 2.0 (1.6-2.6) mg/dL Total Bilirubin 0.5 (0.0-1.0) mg/dL AST 31 (5-37) U/L ALT 36 (0-40) U/L Alkaline Phosphatase 55 (39-117) U/L Troponin I High Sens < 2.7 (<3.5-35.0) ng/L Total Protein 7.7 (6.5-8.0) g/dL Albumin 4.0 (3.5-5.0) g/dL Urine Color Yellow Urine Appearance Clear Urine pH 6.0 (5.0-9.0) Ur Specific [place] 1.015 (1.005-1.025) Urine Protein Negative (Neg-Trace) mg/dL Urine Glucose (UA) Negative (Negative) mg/dL Urine Ketones Negative (Negative) mg/dL Urine Blood Negative (Negative) Urine Nitrite Negative (Negative) Ur Leukocyte Esterase Negative (Negative) Influenza Type A (PCR) NEGATIVE (Negative) Influenza Type B (PCR) NEGATIVE (Negative) RSV RNA Qual (PCR) NEGATIVE (Negative) SARS-CoV-2 RNA (RT-PCR) NEGATIVE (Negative) Discharge Plan Discharge Clinical Impression: Diabetic neuropathy Patient Disposition: Home, Self-Care Instructions: Diabetic Peripheral Neuropathy (ED) Additional Instructions: Likely you have diabetic neuropathy Start taking gabapentin 300 mg every night Follow with your PCP/neurologist for further management Prescriptions: New gabapentin 300 mg capsule 300 mg PO BEDTIME Qty: 30 0RF No Action (DME) blood-glucose meter [RecoversTouch Ultra2 Meter] Kit See Rx Instructions .Route Qty: 1 0RF Rx Instructions: As directed (DME) lancing device with lancets [[employer] Delica Lanc Device] Kit See Rx Instructions .Route Qty: 1 0RF Rx Instructions: testing blood sugar once daily (DME) lancets [OneTouch Delica Lancets] 33 gauge misc See Rx Instructions .Route Qty: 100 3RF Rx Instructions: test blood sugar daily (DME) CPAP Machine/Device Device See Rx Instructions .Route Qty: 1 0RF Rx Instructions: auto PAP 6-20 cm with heated humidification with needed supplies (DME) OneTouch Ultra Test Strip See Rx Instructions .Route Qty: 100 3RF Rx Instructions: test blood sugar once a day simvastatin 40 mg tablet 40 mg PO DAILY Qty: 90 3RF warfarin 7.5 mg tablet 7.5 mg PO DAILY Qty: 90 1RF enoxaparin [Lovenox] 40 mg/0.4 mL syringe 40 mg subcut DAILY Qty: 4 0RF Rx Instructions: take with Lovenox 150 mg enoxaparin [Lovenox] 150 mg/mL syringe 150 mg subcut DAILY Qty: 10 0RF Rx Instructions: take with Lovenox 40 mg diphenhydramine HCl [Benadryl] 25 mg capsule 50 mg PO Q6H PRN (Reason: allergic reaction) Qty: 20 0RF cholecalciferol (vitamin D3) [Vitamin D3] 25 mcg (1,000 unit) Capsule 25 mcg PO DAILY metformin 750 mg tablet extended release 24 hr 1,500 mg PO DAILY losartan 50 mg tablet 50 mg PO DAILY Qty: 90 0RF (DME) lancets [OneTouch UltraSoft Lancets] Misc See Rx Instructions .ROUTE .MEDSUPPLY Qty: 100 6RF Rx Instructions: TID (DME) Dexcom G7 Sensor Device See Rx Instructions .Route Qty: 2 2RF Rx Instructions: As directed Referrals: Kapil Cabello MD [Physician] - 2 weeks Interventions: ED Discharge Assessment Last Done: 07/06/24 20:57 Discharge Date/Time: 07/06/24 21:05 Print Language: Georgian
--- NOTE | 2024-07-06 14:48 | ECG_ITS ---
Test Reason : WEAKNESS Blood Pressure : / mmHG Vent. Rate : 080 BPM Atrial Rate : 080 BPM P-R Int : 262 ms QRS Dur : 074 ms QT Int : 372 ms P-R-T Axes : 027 065 023 degrees QTc Int : 429 ms Poor data quality Sinus rhythm with 1st degree A-V block Otherwise normal ECG When compared with ECG of 17-MAY-2024 20:33, Questionable change in QRS axis Referred By: Jael Chou Electronically Signed By:Fermin Rodriguez
[2024-07-06 15:34] LABS: Basophils Absolute Auto 0.1 X10*3/uL (0.0-0.2); Basophils Percent Auto 0.6 % (0-2); Eosinophils Absolute Auto 0.1 X10*3/uL (0.0-0.4); Eosinophils Percent Auto 1.2 % (0-4); Hematocrit 44.4 % (42.0-52.0); Hemoglobin 15.1 g/dl (14.0-18.0); Imm Gran Abs Auto 0.02 X10*3/uL (0.00-0.03); Imm Gran Pct Auto 0.2 % (0.0-0.4); Lymphocytes Percent Auto 24.2 % (20-40); MANUAL DIFF FLAG NO; Mean Corpuscular Hemoglobin 30.4 pg (27.0-33.0); Mean Corpuscular Volume 89.5 fL (80.0-98.0); Mean Platelet Volume 9.1 fL (9.4-12.4); Monocytes Absolute Auto 0.5 X10*3/uL (0.1-1.2); Monocytes Percent Auto 5.7 % (2-11); Neutrophils Absolute Auto 5.5 x10*3/uL (2.0-8.3); Neutrophils Percent Auto 68.1 % (45-73); Platelet Count 236 X10*3/uL (160-400); Red Blood Count 4.96 X10*6/uL (4.60-5.80); Red Cell Distribution Width 12.8 % (11.0-16.0); White Blood Count 8.1 X10*3/uL (4.8-10.8)
[2024-07-06 15:57] LABS: Alanine Aminotransferase 36 U/L (0-40); Anion Gap 15 (12-20); Aspartate Amino Transferase 31 U/L (5-37); Bilirubin Total 0.5 mg/dL (0.0-1.0); Blood Urea Nitrogen 16 mg/dL (9-16); Calcium 9.5 mg/dL (8.4-10.2); Carbon Dioxide 23 mmol/L (22-29); Chloride 100 mmol/L (96-108); Creatinine Clr Calc Pharmacy 110.8; Estimated Glomerular Filt Rate > 60; Glucose Random 210 mg/dL (60-115); Potassium 4.5 mmol/L (3.3-5.1); Sodium 133 mmol/L (135-145); Total Protein 7.7 g/dL (6.5-8.0)
[2024-07-06 16:00] LABS: Troponin-I High Sensitivity < 2.7 ng/L (<3.5-35.0)
[2024-07-06 16:05] LABS: Alkaline Phosphatase 55 U/L (39-117)
[2024-07-06 16:26] LABS: Influenza A PCR NEGATIVE (Negative); Influenza B PCR NEGATIVE (Negative); Resp Syncy Virus RNA Qual PCR NEGATIVE (Negative); SARS COV2 PCR INHOUSE NEGATIVE (Negative)
[2024-07-06 19:24] VITALS: BP 124/75; PULSE 75; RESP 20; TEMP 36.8; O2SAT 96
[2024-07-06 19:24] LABS: Appearance Urine Clear; Color Urine Yellow; Glucose Urine UA Negative (Negative); Leukocyte Esterase Urine Negative (Negative); Nitrite Urine Negative (Negative); Specific Gravity - Urine 1.015 (1.005-1.025); Urine Blood Negative (Negative); Urine Ketones Negative (Negative); Urine Protein Negative (Neg-Trace)
[2024-07-06 20:00] VITALS: BP 138/85; PULSE 75; RESP 16; TEMP 36.9; O2SAT 98
[2024-07-06] MEDS: Gabapentin 300 MG CAPSULE PO (20:33)
[2024-07-06 20:57] VITALS: BP 138/85; PULSE 75; RESP 16; TEMP 36.9; O2SAT 98
== END 2024-07-06 21:05 | disposition home or self-care (01) ==
PROVIDERS: Physician Assistant Medical; Emergency Provider Internal Medicine; PCP Internal Medicine
DX: E11.40 Type 2 diabetes mellitus with diabetic neuropathy, unspecified (principal); R53.1 Weakness; R42 Dizziness and giddiness; Z79.899 Other long term (current) drug therapy; Z03.818 Encounter for observation for suspected exposure to other biological agents ruled out; Z79.84 Long term (current) use of oral hypoglycemic drugs
CPT/HCPCS: 0241U; 80053; 81003; 83735; 84484; 85025; 93005; 99284; 99285

== ENCOUNTER → 2024-07-06 14:48 | Outpatient (BNV) | payer MEDICARE, MEDICAID, SELFPAY | PROVIDERS: Emergency Provider Internal Medicine; PCP Internal Medicine; Visit Provider Internal Medicine Cardiovascular Disease | DX: I44.0 Atrioventricular block, first degree (principal) | CPT/HCPCS: 93010 ==

== ENCOUNTER 2024-07-21 16:06 | Emergency (ER) | payer MEDICARE, MEDICAID, SELFPAY ==
--- NOTE | ~2024-07-21 | CT_ITS ---
EXAMINATION: CT HEAD WITHOUT CONTRAST CLINICAL INFORMATION: ? Complex partial seizure COMPARISON: CT head 10/04/2021 TECHNIQUE: Contiguous axial imaging was performed from the skull base to vertex without intravenous administration of contrast. This CT examination was performed using dose optimization techniques as appropriate, variously including the following: *Automated exposure control *Adjustment of mA and/or kV according to patient size (this includes techniques or standardized protocols for targeted exams where dose is matched to indication/reason for exam; i.e. 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 There is no evidence of acute intracranial hemorrhage or acute edematous large vessel territorial infarction. No abnormal mass effect or midline shift is seen. Vigil to white matter differentiation is well preserved. No abnormal extra-axial fluid collections are identified. There is cerebral volume loss, similar to previous. No acute calvarial fracture.. Paranasal sinuses and mastoid air cells are well-aerated. CT/CT head/brain wo IV con IMPRESSION: No CT evidence of acute intracranial hemorrhage or acute edematous territorial infarction.. 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 Electronically signed by: Max Barragan MD 07/21/2024 06:56 PM EST
[2024-07-21 16:09] VITALS: BP 190/110; PULSE 94; O2SAT 98
--- NOTE | 2024-07-21 16:11 | ECG_ITS ---
Test Reason : NEAR SYNCOPAL EPISODE Blood Pressure : / mmHG Vent. Rate : 079 BPM Atrial Rate : 079 BPM P-R Int : 264 ms QRS Dur : 074 ms QT Int : 360 ms P-R-T Axes : 052 -08 010 degrees QTc Int : 412 ms Sinus rhythm with 1st degree A-V block Otherwise normal ECG When compared with ECG of 06-JUL-2024 15:09, Questionable change in QRS axis Referred By: Generic ED Physician Electronically Signed By:OWEN MERCEDES
--- NOTE | 2024-07-21 16:18 | ED.SYNCOPE ---
HPI - Syncope General Chief Complaint: Syncope Stated Complaint: complaint syncopal episode, felt like passing out Time Seen by Provider: 07/21/24 16:16 Source: patient Mode of arrival: ambulatory Limitations: no limitations History of Present Illness ED Provider: HPI narrative: Patient's history of diabetes obstructive sleep apnea on CPAP machine hypertension with history of seizure about 15 years not taking any medication been having transient loss of awareness symptoms for last several weeks felt like passing out with numbness and tingling feeling lasting only for few minutes and then back to normal patient was seen here on 07/06 for numbness of the face. Patient does have history of TBI Related Data Home Medications ?Medication ?Instructions ?Recorded ?Confirmed cholecalciferol (vitamin D3) 25 25 mcg PO DAILY 03/09/24 05/26/24 mcg (1,000 unit) capsule (Vitamin D3) metformin 750 mg tablet,extended 1,500 mg PO DAILY 03/09/24 05/26/24 release 24 hr Previous Rx's ?Medication ?Instructions ?Recorded blood-glucose meter (Lev[employer]uch #1 ea 06/02/21 Ultra2 Meter kit) lancing device with lancets kit #1 ea 06/03/21 (Levo [employer]uch Delica Lancing Device kit) diphenhydramine HCl 25 mg capsule 50 mg (2 x 25 mg) PO Q6H PRN 10/04/21 (Benadryl) allergic reaction #20 caps lancets (BT ImagingTouch UltraSoft #100 ea 07/19/22 Lancets) lancets 33 gauge (OneTouch Delica #100 ea 07/25/22 Lancets) CPAP (CPAP Machine/Device) #1 ea 08/24/22 blood sugar diagnostic (BT ImagingTouch #100 ea 02/08/23 Ultra Test strips) simvastatin 40 mg tablet 40 mg PO DAILY #90 tabs 08/12/23 warfarin 7.5 mg tablet 7.5 mg PO DAILY #90 tabs 12/28/23 blood-glucose sensor ([employer] G7 #2 ea 03/13/24 Sensor device) losartan 50 mg tablet 50 mg PO DAILY #90 tabs 05/17/24 enoxaparin 150 mg/mL subcutaneous 150 mg subcut DAILY #10 mL 05/21/24 syringe (Lovenox) enoxaparin 40 mg/0.4 mL 40 mg (0.4 mL) subcut DAILY #4 mL 10/16/24 subcutaneous syringe (Lovenox) gabapentin 300 mg capsule 300 mg PO BEDTIME #30 caps 07/06/24 Allergies Allergy/AdvReac Type Severity Reaction Status Date / Time A & D Allergy Severe anaphylaxis Verified 07/21/24 16:22 bacitracin [BACITRACIN] Allergy Severe Verified 07/21/24 16:22 SEIZURE , anaphylaxis Sulfa (Sulfonamide Allergy Mild SWELLING Verified 07/21/24 16:22 Antibiotics) adhesive tape Allergy Rash Verified 07/21/24 16:22 atenolol Allergy Heart Verified 07/21/24 16:22 block AV second degree dapagliflozin [From Farxiga] AdvReac Intermediate Abdominal Verified 07/21/24 16:22 Pain dulaglutide [From Trulicity] AdvReac Intermediate Diarrhea, Verified 07/21/24 16:22 vomiting lisinopril AdvReac Intermediate Dizziness Verified 07/21/24 16:22 tirzepatide [From Mounjaro] AdvReac Constipatio Verified 07/21/24 16:22 n SSRI AdvReac Intermediate DECREASE Uncoded 07/06/24 14:49 LIBIDO Review of Systems Review of Systems: Yes all other systems are reviewed and are negative PMFSH Past Medical History Medical History Hypertension DM type 2 (diabetes mellitus, type 2) Factor 5 Leiden mutation, heterozygous Heart block AV second degree Vitamin B 12 deficiency Dizziness Annual physical exam Skin abnormalities STD (male) Venous (peripheral) insufficiency Obesity Hyperlipidemia PVD (peripheral vascular disease) DVT (deep venous thrombosis) SOB (shortness of breath) Surgical History Hx of esophagogastroduodenoscopy Hx of colonoscopy H/O vascular surgery Family History Family History Father CVD (cardiovascular disease) Mother CVD (cardiovascular disease) Daughter No problems noted. Son No problems noted. Social History Social History Household Members: Spouse and Significant Other Housing: House Are you a primary career portals teacher to a significant other at home: No Do you presently have visiting nurse or other home services: No Unable to assess alcohol history related to: Unknown Patient Tobacco Use Status: Former Tobacco user Tobacco use type: Cigarette Smoked in Last 30 Days: No e-Cigarette/Vaping Use: Never Used Second Hand Smoke Exposure: No (none) Use of substances other than those prescribed or required for medical reasons: No Advance Directives: No Advance Directives Information Provided: No service: No Current occupational status: employed Cognitive needs: No Hearing needs: No Vision needs: No Physical Exam Vital Signs: Vital Signs: Last Vital Signs Temp 98.6 F 07/21/24 19:27 Pulse 89 07/21/24 19:27 Resp 17 07/21/24 19:27 BP 139/87 07/21/24 19:27 Pulse Ox 96 07/21/24 19:27 O2 Del Method Room Air 07/21/24 19:27 BMI result Body Mass Index 43.8 Appearance: Alert. Oriented X3. No acute distress. Eyes: No pallor or icterus ENT: Pharynx normal. Oral Mucosa moist Neck: Normal inspection. Neck supple. CVS: Normal heart rate and rhythm. Pulses normal. Respiratory: No respiratory distress. Equal air entry bilateral, no wheezing/rales/rhonchi Abdomen: Soft and nontender. Bowel sounds are present, no mass palpable, no CVA tenderness Skin: Skin warm and dry. Normal skin color. Normal skin turgor. Extremities: No lower extremity edema. No calf tenderness Neuro: Oriented X 3. No motor deficit. No sensory deficit.No cerebellar signs , cranial nerves II-XII intact Medical Decision Making Medical Decision Making MDM Narrative: Patient with remote history of seizures comes here for questionable Aura without any seizure activity patient advised to follow with neurologist for ruling or complex partial seizure CT scan of the head is showed old frontal infarct no acute pathology Differential Diagnosis Differential Diagnoses: The differential diagnosis associated with the presentation includes Lab Data MDM Lab Attestation statement: I reviewed the patient's lab results. 07/21/24 17:18 07/21/24 17:19 Labs: Lab Results 07/21/24 07/21/24 Range/Units 17:18 17:19 WBC 7.5 (4.8-10.8) X10*3/uL RBC 4.79 (4.60-5.80) X10*6/uL Hgb 14.6 (14.0-18.0) g/dl Hct 42.2 (42.0-52.0) % MCV 88.1 (80.0-98.0) fL MCH 30.5 (27.0-33.0) pg MCHC 34.6 (31.0-36.0) g/dl RDW 12.8 (11.0-16.0) % Plt Count 216 (160-400) X10*3/uL MPV 9.5 (9.4-12.4) fL Immature Gran % (Auto) 0.4 (0.0-0.4) % Neut % (Auto) 67.7 (45-73) % Lymph % (Auto) 23.2 (20-40) % [place] % (Auto) 6.7 (2-11) % Eos % (Auto) 1.5 (0-4) % Baso % (Auto) 0.5 (0-2) % Lymph # (Auto) 1.7 (1.2-4.9) X10*3/uL [place] # (Auto) 0.5 (0.1-1.2) X10*3/uL Eos # (Auto) 0.1 (0.0-0.4) X10*3/uL Baso # (Auto) 0.0 (0.0-0.2) X10*3/uL Abs Immat Gran (auto) 0.03 (0.00-0.03) X10*3/uL Absolute Neuts (auto) 5.1 (2.0-8.3) x10*3/uL Absolute Nucleated RBC 0.000 (0.0-0.012) X10*3/uL Nucleated RBC % (auto) 0.0 (0.0-0.2) /100WBC Sodium 135 (135-145) mmol/L Potassium 4.0 (3.3-5.1) mmol/L Chloride 103 (96-108) mmol/L Carbon Dioxide 26 (22-29) mmol/L Anion Gap 10 L (12-20) BUN 15 (9-16) mg/dL Creatinine 0.80 (0.5-1.4) mg/dL Estim Creat Clear Calc 145.4 Estimated GFR > 60 Random Glucose 141 H (60-115) mg/dL Calcium 9.2 (8.4-10.2) mg/dL Total Bilirubin 0.6 (0.0-1.0) mg/dL AST 28 (5-37) U/L ALT 28 (0-40) U/L Alkaline Phosphatase 50 (39-117) U/L Troponin I High Sens < 2.7 (<3.5-35.0) ng/L Total Protein 7.9 (6.5-8.0) g/dL Albumin 4.1 (3.5-5.0) g/dL Discharge Plan Discharge Clinical Impression: Consciousness loss, transient Patient Disposition: Home, Self-Care Instructions: Syncope (ED) Additional Instructions: Possibly have complex partial seizure as the cause of transient symptoms and lost of orientation Follow up with neurologist and PCP for further management Prescriptions: No Action (DME) blood-glucose meter [OneTouch Ultra2 Meter] Kit See Rx Instructions .Route Qty: 1 0RF Rx Instructions: As directed (DME) lancing device with lancets [Levo Leagueuch Delica Lanc Device] Kit See Rx Instructions .Route Qty: 1 0RF Rx Instructions: testing blood sugar once daily (DME) lancets [OneTouch Delica Lancets] 33 gauge misc See Rx Instructions .Route Qty: 100 3RF Rx Instructions: test blood sugar daily (DME) CPAP Machine/Device Device See Rx Instructions .Route Qty: 1 0RF Rx Instructions: auto PAP 6-20 cm with heated humidification with needed supplies (DME) OneTouch Ultra Test Strip See Rx Instructions .Route Qty: 100 3RF Rx Instructions: test blood sugar once a day simvastatin 40 mg tablet 40 mg PO DAILY Qty: 90 3RF warfarin 7.5 mg tablet 7.5 mg PO DAILY Qty: 90 1RF enoxaparin [Lovenox] 40 mg/0.4 mL syringe 40 mg subcut DAILY Qty: 4 0RF Rx Instructions: take with Lovenox 150 mg enoxaparin [Lovenox] 150 mg/mL syringe 150 mg subcut DAILY Qty: 10 0RF Rx Instructions: take with Lovenox 40 mg diphenhydramine HCl [Benadryl] 25 mg capsule 50 mg PO Q6H PRN (Reason: allergic reaction) Qty: 20 0RF cholecalciferol (vitamin D3) [Vitamin D3] 25 mcg (1,000 unit) Capsule 25 mcg PO DAILY metformin 750 mg tablet extended release 24 hr 1,500 mg PO DAILY losartan 50 mg tablet 50 mg PO DAILY Qty: 90 0RF gabapentin 300 mg capsule 300 mg PO BEDTIME Qty: 30 0RF (DME) lancets [OneTouch UltraSoft Lancets] Misc See Rx Instructions .ROUTE .MEDSUPPLY Qty: 100 6RF Rx Instructions: TID (DME) Dexcom G7 Sensor Device See Rx Instructions .Route Qty: 2 2RF Rx Instructions: As directed Referrals: Kapil Cabello MD [Physician] - 1 week Interventions: ED Discharge Assessment Last Done: 07/21/24 19:27 Discharge Date/Time: 07/21/24 19:27 Print Language: [place]
[2024-07-21 16:19] VITALS: BP 130/85; PULSE 86; RESP 20; TEMP 36.7; O2SAT 99; BMI 43.8
[2024-07-21 17:22] LABS: MANUAL DIFF FLAG NO
[2024-07-21 17:23] LABS: Basophils Percent Auto 0.5 % (0-2); Eosinophils Absolute Auto 0.1 X10*3/uL (0.0-0.4); Eosinophils Percent Auto 1.5 % (0-4); Hematocrit 42.2 % (42.0-52.0); Hemoglobin 14.6 g/dl (14.0-18.0); Imm Gran Abs Auto 0.03 X10*3/uL (0.00-0.03); Imm Gran Pct Auto 0.4 % (0.0-0.4); Lymphocytes Absolute Auto 1.7 X10*3/uL (1.2-4.9); Lymphocytes Percent Auto 23.2 % (20-40); Mean Corpuscular HGB Conc 34.6 g/dl (31.0-36.0); Mean Corpuscular Hemoglobin 30.5 pg (27.0-33.0); Mean Corpuscular Volume 88.1 fL (80.0-98.0); Mean Platelet Volume 9.5 fL (9.4-12.4); Monocytes Absolute Auto 0.5 X10*3/uL (0.1-1.2); Monocytes Percent Auto 6.7 % (2-11); Neutrophils Absolute Auto 5.1 x10*3/uL (2.0-8.3); Neutrophils Percent Auto 67.7 % (45-73); Platelet Count 216 X10*3/uL (160-400); Red Blood Count 4.79 X10*6/uL (4.60-5.80); Red Cell Distribution Width 12.8 % (11.0-16.0); White Blood Count 7.5 X10*3/uL (4.8-10.8)
[2024-07-21 17:43] LABS: Alanine Aminotransferase 28 U/L (0-40); Albumin Level 4.1 g/dL (3.5-5.0); Alkaline Phosphatase 50 U/L (39-117); Anion Gap 10 (12-20); Aspartate Amino Transferase 28 U/L (5-37); Bilirubin Total 0.6 mg/dL (0.0-1.0); Blood Urea Nitrogen 15 mg/dL (9-16); Calcium 9.2 mg/dL (8.4-10.2); Carbon Dioxide 26 mmol/L (22-29); Chloride 103 mmol/L (96-108); Creatinine Clr Calc Pharmacy 145.4; Estimated Glomerular Filt Rate > 60; Glucose Random 141 mg/dL (60-115); Sodium 135 mmol/L (135-145); Total Protein 7.9 g/dL (6.5-8.0)
[2024-07-21 17:54] LABS: Troponin-I High Sensitivity < 2.7 ng/L (<3.5-35.0)
[2024-07-21 19:27] VITALS: BP 139/87; PULSE 89; RESP 17; TEMP 37; O2SAT 96
== END 2024-07-21 19:27 | disposition home or self-care (01) ==
PROVIDERS: Emergency Provider Internal Medicine
DX: S06.0XAA Concussion with loss of consciousness status unknown, initial encounter (principal); R55 Syncope and collapse; I44.0 Atrioventricular block, first degree; R94.31 Abnormal electrocardiogram [ECG] [EKG]; R51.9 Headache, unspecified; X58.XXXA Exposure to other specified factors, initial encounter; Y93.89 Activity, other specified; Y92.89 Other specified places as the place of occurrence of the external cause; Y99.8 Other external cause status; Z79.899 Other long term (current) drug therapy; Z87.891 Personal history of nicotine dependence
CPT/HCPCS: 36415; 70450; 80053; 84484; 85025; 93005; 99284

== ENCOUNTER → 2024-07-21 16:11 | Outpatient (BNV) | payer MEDICARE, MEDICAID, SELFPAY | PROVIDERS: Emergency Provider Internal Medicine; Visit Provider Internal Medicine | DX: I44.0 Atrioventricular block, first degree (principal) | CPT/HCPCS: 93010 ==

== ENCOUNTER 2024-08-03 18:45 | Emergency (ER) | payer MEDICARE, MEDICAID, SELFPAY ==
--- NOTE | 2024-08-03 19:22 | ED_ITS ---
HPI - General Adult General Chief complaint: General Medical Stated complaint: hypertension, headache, blurred vision Related Data Home Medications ?Medication ?Instructions ?Recorded ?Confirmed cholecalciferol (vitamin D3) 25 25 mcg PO DAILY 03/09/24 08/04/24 mcg (1,000 unit) capsule (Vitamin D3) metformin 750 mg tablet,extended 1,500 mg PO DAILY 03/09/24 08/04/24 release 24 hr Previous Rx's ?Medication ?Instructions ?Recorded blood-glucose meter ([employer]uch #1 ea 06/02/21 Ultra2 Meter kit) lancing device with lancets kit #1 ea 06/03/21 ([employer] Delica Lancing Device kit) diphenhydramine HCl 25 mg capsule 50 mg (2 x 25 mg) PO Q6H PRN 10/04/21 (Benadryl) allergic reaction #20 caps lancets ([employer] UltraSoft #100 ea 07/19/22 Lancets) lancets 33 gauge ([employer] Delica #100 ea 07/25/22 Lancets) CPAP (CPAP Machine/Device) #1 ea 08/24/22 blood sugar diagnostic (PrintEcoTouch #100 ea 02/08/23 Ultra Test strips) simvastatin 40 mg tablet 40 mg PO DAILY #90 tabs 08/12/23 blood-glucose sensor (Dexcom G7 #2 ea 03/13/24 Sensor device) losartan 50 mg tablet 50 mg PO DAILY #90 tabs 07/27/24 warfarin 7.5 mg tablet 7.5 mg PO DAILY #90 tabs 07/27/24 Allergies Allergy/AdvReac Type Severity Reaction Status Date / Time A & D Allergy Severe anaphylaxis Verified 08/04/24 12:22 bacitracin [BACITRACIN] Allergy Severe Verified 08/04/24 12:22 SEIZURE , anaphylaxis Sulfa (Sulfonamide Allergy Mild SWELLING Verified 08/04/24 12:22 Antibiotics) adhesive tape Allergy Rash Verified 08/04/24 12:22 atenolol Allergy Heart Verified 08/04/24 12:22 block AV second degree gabapentin Allergy Hives, Verified 08/04/24 12:27 elevated BP, leg twitching dapagliflozin [From Farxiga] AdvReac Intermediate Abdominal Verified 08/04/24 12:22 Pain [facility]ide [facility] AdvReac Intermediate Diarrhea, Verified 08/04/24 12:22 vomiting lisinopril AdvReac Intermediate Dizziness Verified 08/04/24 12:22 lamotrigine AdvReac elevated Verified 08/04/24 12:26 BP, dizziness sweating tirzepatide [From Mounjaro] AdvReac Constipatio Verified 08/04/24 12:22 n SSRI AdvReac Intermediate DECREASE Uncoded 08/04/24 12:22 LIBIDO PMFSH Past Medical History Medical History Hypertension DM type 2 (diabetes mellitus, type 2) Factor 5 Leiden mutation, heterozygous Heart block AV second degree Vitamin B 12 deficiency Dizziness Annual physical exam Skin abnormalities STD (male) Venous (peripheral) insufficiency Obesity Hyperlipidemia PVD (peripheral vascular disease) DVT (deep venous thrombosis) SOB (shortness of breath) Surgical History Hx of esophagogastroduodenoscopy Hx of colonoscopy H/O vascular surgery Family History Family History Father CVD (cardiovascular disease) Mother CVD (cardiovascular disease) Daughter No problems noted. Son No problems noted. Social History Social History Household Members: Spouse and Significant Other Housing: House Are you a primary senior care manager to a significant other at home: No Do you presently have visiting nurse or other home services: No Unable to assess alcohol history related to: Unknown Patient Tobacco Use Status: Former Tobacco user Tobacco use type: Cigarette e-Cigarette/Vaping Use: Never Used Second Hand Smoke Exposure: No (none) service: No Current occupational status: employed Cognitive needs: No Hearing needs: No Vision needs: No Physical Exam ED Vital Signs: Vital Signs - 24 hr 08/03/24 19:30 Temperature 98.5 F Pulse Rate 78 Respiratory Rate 16 Blood Pressure 148/85 H Pulse Oximetry 97 Oxygen Delivery Method Room Air BMI result Body Mass Index 42.3 Course Course Course Narrative: This is a Rapid Medical Examination (RME) performed by Corie Reed PA-C in triage. Full HPI, ROS, assessment and treatment plan per primary provider in the Main ED. 54 yo male hx of HTN, T2DM, HDL obesity, APOLLO, AV block, DVT, PE on eliquis here for eval of recent elevated blood pressures. endorses posterior EDUARDO earlier and slight lightheadedness at present. no chest pain. his BP while standing at home today was 150/105. reports BPs recently in the 200's, evaluated at a hospital in [place] 3 days ago for this. takes his losartan as prescribed. + BP wnl in triage. well appearing. Plan: blood work Reevaluation(s) Reevaluation #1: Patient left the emergency department before myself or any of the other clinicians could review or explain physical exam findings, test results, need or lack there of for additional testing, treatment options, or a treatment plan. Medical Decision Making Lab Data 08/03/24 19:49 08/03/24 19:49 Labs: Lab Results 08/03/24 Range/Units 19:49 WBC 8.3 (4.8-10.8) X10*3/uL RBC 4.84 (4.60-5.80) X10*6/uL Hgb 14.9 (14.0-18.0) g/dl Hct 43.5 (42.0-52.0) % MCV 89.9 (80.0-98.0) fL MCH 30.8 (27.0-33.0) pg MCHC 34.3 (31.0-36.0) g/dl RDW 12.9 (11.0-16.0) % Plt Count 219 (160-400) X10*3/uL MPV 8.9 L (9.4-12.4) fL Immature Gran % (Auto) 0.5 H (0.0-0.4) % Neut % (Auto) 66.4 (45-73) % Lymph % (Auto) 24.0 (20-40) % [place] % (Auto) 7.1 (2-11) % Eos % (Auto) 1.4 (0-4) % Baso % (Auto) 0.6 (0-2) % Lymph # (Auto) 2.0 (1.2-4.9) X10*3/uL [place] # (Auto) 0.6 (0.1-1.2) X10*3/uL Eos # (Auto) 0.1 (0.0-0.4) X10*3/uL Baso # (Auto) 0.1 (0.0-0.2) X10*3/uL Abs Immat Gran (auto) 0.04 H (0.00-0.03) X10*3/uL Absolute Neuts (auto) 5.5 (2.0-8.3) x10*3/uL Absolute Nucleated RBC 0.000 (0.0-0.012) X10*3/uL Nucleated RBC % (auto) 0.0 (0.0-0.2) /100WBC PT 24.1 H (10.9-12.4) SEC INR 2.1 H (0.9-1.1) Sodium 140 (135-145) mmol/L Potassium 4.4 (3.3-5.1) mmol/L Chloride 104 (96-108) mmol/L Carbon Dioxide 26 (22-29) mmol/L Anion Gap 14 (12-20) BUN 14 (9-16) mg/dL Creatinine 0.84 (0.5-1.4) mg/dL Estim Creat Clear Calc 135.7 Estimated GFR > 60 Random Glucose 129 H (60-115) mg/dL Calcium 9.9 D (8.4-10.2) mg/dL Magnesium 2.0 (1.6-2.6) mg/dL Total Bilirubin 0.5 (0.0-1.0) mg/dL AST 28 (5-37) U/L ALT 31 (0-40) U/L Alkaline Phosphatase 55 (39-117) U/L Troponin I High Sens 9.9 D (<3.5-35.0) ng/L Total Protein 8.1 H (6.5-8.0) g/dL Albumin 4.3 (3.5-5.0) g/dL Discharge Plan Discharge Clinical Impression: Elevated blood pressure reading Patient Disposition: Left W/O Completing Treatment Prescriptions: No Action (DME) blood-glucose meter [PrintEcoTouch Ultra2 Meter] Kit See Rx Instructions .Route Qty: 1 0RF Rx Instructions: As directed (DME) lancing device with lancets [[employer] Delica Lanc Device] Kit See Rx Instructions .Route Qty: 1 0RF Rx Instructions: testing blood sugar once daily (DME) lancets [OneTouch Delica [facility] See Rx Instructions .Route Qty: 100 3RF Rx Instructions: test blood sugar daily (DME) CPAP Machine/Device Device See Rx Instructions .Route Qty: 1 0RF Rx Instructions: auto PAP 6-20 cm with heated humidification with needed supplies (DME) OneTouch Ultra Test Strip See Rx Instructions .Route Qty: 100 3RF Rx Instructions: test blood sugar once a day simvastatin 40 mg tablet 40 mg PO DAILY Qty: 90 3RF losartan 50 mg tablet 50 mg PO DAILY Qty: 90 1RF warfarin 7.5 mg tablet 7.5 mg PO DAILY Qty: 90 1RF diphenhydramine HCl [Benadryl] 25 mg capsule 50 mg PO Q6H PRN (Reason: allergic reaction) Qty: 20 0RF cholecalciferol (vitamin D3) [Vitamin D3] 25 mcg (1,000 unit) Capsule 25 mcg PO DAILY metformin 750 mg tablet extended release 24 hr 1,500 mg PO DAILY (DME) lancets [OneTouch UltraSoft Lancets] [facility] See Rx Instructions .ROUTE .MEDSUPPLY Qty: 100 6RF Rx Instructions: TID (DME) Dexcom G7 Sensor Device See Rx Instructions .Route Qty: 2 2RF Rx Instructions: As directed Discharge Date/Time: 08/03/24 22:59
--- NOTE | 2024-08-03 19:27 | ECG_ITS ---
Test Reason : LIGHTHEADED Blood Pressure : / mmHG Vent. Rate : 071 BPM Atrial Rate : 071 BPM P-R Int : 256 ms QRS Dur : 074 ms QT Int : 366 ms P-R-T Axes : 038 -07 019 degrees QTc Int : 397 ms Sinus rhythm with 1st degree A-V block Otherwise normal ECG When compared with ECG of 21-JUL-2024 16:19, No significant change was found Referred By: Jessy Reed Electronically Signed By:ALISON SEAY MD
[2024-08-03 19:30] VITALS: BP 148/85; PULSE 78; RESP 16; TEMP 36.9; O2SAT 97; BMI 42.3
[2024-08-03 19:54] LABS: MANUAL DIFF FLAG NO
[2024-08-03 19:56] LABS: Basophils Absolute Auto 0.1 X10*3/uL (0.0-0.2); Basophils Percent Auto 0.6 % (0-2); Eosinophils Absolute Auto 0.1 X10*3/uL (0.0-0.4); Eosinophils Percent Auto 1.4 % (0-4); Hematocrit 43.5 % (42.0-52.0); Hemoglobin 14.9 g/dl (14.0-18.0); Imm Gran Abs Auto 0.04 X10*3/uL (0.00-0.03); Imm Gran Pct Auto 0.5 % (0.0-0.4); Mean Corpuscular HGB Conc 34.3 g/dl (31.0-36.0); Mean Corpuscular Hemoglobin 30.8 pg (27.0-33.0); Mean Corpuscular Volume 89.9 fL (80.0-98.0); Mean Platelet Volume 8.9 fL (9.4-12.4); Monocytes Absolute Auto 0.6 X10*3/uL (0.1-1.2); Monocytes Percent Auto 7.1 % (2-11); Neutrophils Absolute Auto 5.5 x10*3/uL (2.0-8.3); Neutrophils Percent Auto 66.4 % (45-73); Platelet Count 219 X10*3/uL (160-400); Red Blood Count 4.84 X10*6/uL (4.60-5.80); Red Cell Distribution Width 12.9 % (11.0-16.0); White Blood Count 8.3 X10*3/uL (4.8-10.8)
[2024-08-03 20:01] LABS: INTERNATIONAL NORM RATIO 2.1 (0.9-1.1); Prothrombin Time 24.1 SEC (10.9-12.4)
[2024-08-03 20:15] LABS: Alanine Aminotransferase 31 U/L (0-40); Albumin Level 4.3 g/dL (3.5-5.0); Alkaline Phosphatase 55 U/L (39-117); Anion Gap 14 (12-20); Aspartate Amino Transferase 28 U/L (5-37); Bilirubin Total 0.5 mg/dL (0.0-1.0); Blood Urea Nitrogen 14 mg/dL (9-16); Calcium 9.9 mg/dL (8.4-10.2); Carbon Dioxide 26 mmol/L (22-29); Chloride 104 mmol/L (96-108); Creatinine Clr Calc Pharmacy 135.7; Estimated Glomerular Filt Rate > 60; Glucose Random 129 mg/dL (60-115); Potassium 4.4 mmol/L (3.3-5.1); Sodium 140 mmol/L (135-145); Total Protein 8.1 g/dL (6.5-8.0)
[2024-08-03 20:22] LABS: Troponin-I High Sensitivity 9.9 ng/L (<3.5-35.0)
== END 2024-08-03 22:59 | disposition left against medical advice (07) ==
PROVIDERS: Physician Assistant Medical; Emergency Provider Internal Medicine; PCP Internal Medicine
DX: R51.9 Headache, unspecified (principal); H53.8 Other visual disturbances; I44.0 Atrioventricular block, first degree; R42 Dizziness and giddiness; E11.9 Type 2 diabetes mellitus without complications; I10 Essential (primary) hypertension; Z87.891 Personal history of nicotine dependence; Z79.899 Other long term (current) drug therapy; Z79.84 Long term (current) use of oral hypoglycemic drugs; Z51.81 Encounter for therapeutic drug level monitoring
CPT/HCPCS: 36415; 80053; 83735; 84484; 85025; 85610; 93005; 99283

== ENCOUNTER → 2024-08-03 19:27 | Outpatient (BNV) | payer MEDICARE, MEDICAID, SELFPAY | PROVIDERS: Emergency Provider Internal Medicine; PCP Internal Medicine; Visit Provider Internal Medicine Cardiovascular Disease | DX: I44.0 Atrioventricular block, first degree (principal) | CPT/HCPCS: 93010 ==

== ENCOUNTER 2024-08-04 12:10 | Outpatient (AMB) | payer MEDICARE, MEDICAID, SELFPAY ==
[2024-08-04 12:13] VITALS: BP 122/74; PULSE 90; O2SAT 99; BMI 42.7
--- NOTE | 2024-08-04 12:13 | A.OFFPC_ITS ---
Vital Signs 08/04/24 12:13 Height 5 ft 9 in Weight 289 lb BMI 42.7 BP 122/74 Blood Pressure Location Lt brachial Position Sitting Pulse 90 Pulse Source Pulse Oximeter Pulse Oximetry (%) 99 Oxygen Delivery Method Room Air Intake Visit Reasons: ER follow up Intake Note: Pt is here today for ER follow up visit. Pt states that that he went to Er twice in the last couple of weeks due to elevated BP. Allergies A & D Allergy (Severe, Verified 08/04/24 12:22) anaphylaxis bacitracin [BACITRACIN] Allergy (Severe, Verified 08/04/24 12:22) SEIZURE , anaphylaxis Sulfa (Sulfonamide Antibiotics) Allergy (Mild, Verified 08/04/24 12:22) SWELLING adhesive tape Allergy (Verified 08/04/24 12:22) Rash atenolol Allergy (Verified 08/04/24 12:22) Heart block AV second degree gabapentin Allergy (Verified 08/04/24 12:27) Hives, elevated BP, leg twitching dapagliflozin [From Farxiga] Adverse Reaction (Intermediate, Verified 08/04/24 12:22) Abdominal Pain dulaglutide [From Trulicity] Adverse Reaction (Intermediate, Verified 08/04/24 12:22) Diarrhea, vomiting lisinopril Adverse Reaction (Intermediate, Verified 08/04/24 12:22) Dizziness lamotrigine Adverse Reaction (Verified 08/04/24 12:26) elevated BP, dizziness sweating tirzepatide [From Mounjaro] Adverse Reaction (Verified 08/04/24 12:22) Constipation SSRI Adverse Reaction (Intermediate, Uncoded 08/04/24 12:22) DECREASE LIBIDO Medication List - Last Reconciled 08/04/24 by Esha Corbin MD blood sugar diagnostic ([employer] Ultra Test strips) test blood sugar once a day blood-glucose meter ([employer] Ultra2 Meter kit) As directed blood-glucose sensor ([employer] G7 Sensor device) As directed cholecalciferol (vitamin D3) (Vitamin D3) 25 mcg PO DAILY CPAP (CPAP Machine/Device) auto PAP 6-20 cm with heated humidification with needed supplies diphenhydramine HCl (Benadryl) 50 mg (2 x 25 mg) PO Q6H PRN enoxaparin (Lovenox) 40 mg (0.4 mL) subcut DAILY enoxaparin (Lovenox) 150 mg subcut DAILY lancets ([employer] UltraSoft Lancets) TID lancets ([employer] Delica Lancets) test blood sugar daily lancing device with lancets ([employer] Delica Lancing Device kit) testing blood sugar once daily losartan 50 mg PO DAILY metformin ER 1,500 mg PO DAILY simvastatin 40 mg PO DAILY warfarin 7.5 mg PO DAILY Tobacco use date assessed: 08/04/24 Dental Screening Dental Screen Date: 03/13/24 HPI ER follow up HPI Details Pt presents for f/u ER visit for elevated BP and leg twitching started after taking Lamictal. Patient had negative ER evaluation including labs and CT of the brain. Patient reports episodes of anxiety and panic attacks starting with a sensation of lightheadedness dizziness fear of losing the consciousness. Patient has been checking his blood pressure 3 times a day and is usually well controlled except during the episodes of lightheadedness. He is not aware of any specific triggers and reports no increased stress, depression insomnia or ch mily in appetite. [facility] Medical History Hypertension DM type 2 (diabetes mellitus, type 2) Factor 5 Leiden mutation, heterozygous Heart block AV second degree Vitamin B 12 deficiency Dizziness Annual physical exam Skin abnormalities STD (male) Venous (peripheral) insufficiency Obesity Hyperlipidemia PVD (peripheral vascular disease) DVT (deep venous thrombosis) SOB (shortness of breath) Surgical History Hx of esophagogastroduodenoscopy Hx of colonoscopy H/O vascular surgery Family History Father CVD (cardiovascular disease) Mother CVD (cardiovascular disease) Daughter No problems noted. Son No problems noted. Social History Household Members: Spouse and Significant Other Housing: House Are you a primary customer care representative to a significant other at home: No Do you presently have visiting nurse or other home services: No Unable to assess alcohol history related to: Unknown Patient Tobacco Use Status: Former Tobacco user Tobacco use type: Cigarette e-Cigarette/Vaping Use: Never Used Second Hand Smoke Exposure: No (none) service: No Current occupational status: employed Cognitive needs: No Hearing needs: No Vision needs: No Questionnaire Thrive Questionnaire Date Thrive assessed: 03/13/24 I am a: Patient What is your living situation today?: I choose not to answer this question Within the past 12 months, did the food you bought not last and you didn't have the money to get more?: I choose not to answer this question Within the past 12 months, did you worry whether your food would run out before you got money to buy more?: I choose not to answer this question Do you have trouble paying for medicines?: I choose not to answer this question Do you have trouble getting transportation to medical appointments?: I choose not to answer this question Do you have trouble paying your heating and electricity bill?: I choose not to answer this question Do you have trouble taking care of your child, family member or friend?: I choose not to answer this question Do you have trouble with day-to-day activities such as bathing, preparing meals, shopping, managing finances, etc.?: I choose not to answer this question Are you currently unemployed and looking for a job?: I choose not to answer this question Are you interested in more education?: I choose not to answer this question Please select the resources that you would like help with: None Currently or been in a relationship where the following occur: I choose not to answer THRIVE Score: 0 ANISA-7 AMB Questionnaire ANISA-7 Date ANISA - 7 assessed: 03/13/24 Source: Developed by Drs. Marco Antonio Zhu, Ginger Freed, Se Bahena and colleagues, with an educational teresita from [employer]. Review of Systems Const All systems reviewed & are unremarkable except as noted in HPI and below Eyes Reports no additional complaints ENT Reports no additional complaints Card Reports no additional complaints Resp Reports no additional complaints GI Reports no additional complaints Reports no additional complaints Physical exam (Primary Care) Vital Signs: Last Vital Signs Pulse 90 08/04/24 12:13 BP 122/74 08/04/24 12:13 Pulse Ox 99 08/04/24 12:13 Oxygen Delivery Method Room Air 08/04/24 12:13 BMI result Body Mass Index 42.7 Tobacco/Smoking Status: Tobacco use Status Tobacco use date assessed 08/04/24 08/04/24 12:29 Patient Tobacco Use Status Former Tobacco user 08/04/24 12:13 Tobacco use type Cigarette 08/04/24 12:13 e-Cigarette/Vaping Use Never Used 08/04/24 12:13 Thrive Assessment: Date of Thrive Assessment Date Thrive assessed 03/13/24 08/04/24 12:13 Currently or been in a relationship where the following occur: I choose not to answer Const General: no acute distress HENMT Head: Yes normal to inspection Eyes General: appearance normal, both eyes and all related structures Resp Effort & Inspection: normal respiratory effort Auscultation: clear to auscultation bilaterally Cardio Rhythm: regular rhythm Heart sounds: S1 normal heart sound present and S2 normal heart sound present GI Inspection: Yes normal to inspection Palpation (GI): Soft to palpation Percussion: Yes normal to percussion Auscultation: normal bowel sounds Coding Level of Care Code Est Pt Level 4 (02915) Complex EM visit Add On G2211 Diagnoses Primary hypertension I10 Hypertension type: primary hypertension Hyperlipidemia E78.5 Type 2 diabetes mellitus without complication, without long-term current use of insulin E11.9 Diabetes mellitus alf insulin use: without medical education coordinator use Diabetes mellitus complication status: without complication Panic attacks F41.0 Assessment & Plan Assessment & Plan (1) Hypertension: Comment: Could not tolerate lisinopril causes dizziness, atenolol caused second-degree AV Code(s): I10 - Essential (primary) hypertension Category: Medical Qualifiers: Hypertension type: primary hypertension Qualified Code(s): I10 - Essential (primary) hypertension Plan: Continue losartan. For episodes of fluctuating blood pressure he will be referred to v belt finisher for 24 hour blood pressure monitoring (2) Hyperlipidemia: Code(s): E78.5 - Hyperlipidemia, unspecified Category: Medical Plan: Continue statin (3) DM type 2 (diabetes mellitus, type 2): Code(s): E11.9 - Type 2 diabetes mellitus without complications Category: Medical Qualifiers: Diabetes mellitus medical education coordinator insulin use: without medical education coordinator use Diabetes mellitus complication status: without complication Qualified Code(s): E11.9 - Type 2 diabetes mellitus without complications Plan: Continue metformin ADA diet regular physical activity return in 3 months with a fasting labs including A1c (4) Panic attacks: Code(s): F41.0 - Panic disorder [episodic paroxysmal anxiety] Category: Medical Plan: Stress management counseling were recommended. Patient is contemplating trying counseling Orders: Orders Comprehensive [place] [facility]. Panel Fast 3 Months E11.9 - Type 2 diabetes mellitus without complications, E78.5 - Hyperlipidemia, unspecified, I10 - Essential (primary) hypertension Hemoglobin A1c 3 Months E11.9 - Type 2 diabetes mellitus without complications, E78.5 - Hyperlipidemia, unspecified, I10 - Essential (primary) hypertension Lipid Panel 3 Months E11.9 - Type 2 diabetes mellitus without complications, E78.5 - Hyperlipidemia, unspecified, I10 - Essential (primary) hypertension TSH reflex Free T4 3 Months E11.9 - Type 2 diabetes mellitus without complications, E78.5 - Hyperlipidemia, unspecified, I10 - Essential (primary) hypertension Complete Blood Count Auto Diff 3 Months E11.9 - Type 2 diabetes mellitus without complications, E78.5 - Hyperlipidemia, unspecified, I10 - Essential (primary) hypertension Referrals Nephrology Referral I10 - Essential (primary) hypertension Medications: Discontinued enoxaparin (Lovenox) take with Lovenox 150 mg Discontinued Reason: Doctor's Order 40 mg (0.4 mL) subcut DAILY 4 mL 0RF enoxaparin (Lovenox) take with Lovenox 40 mg Discontinued Reason: Doctor's Order 150 mg subcut DAILY 10 mL 0RF
== END 2024-08-04 13:01 | disposition home or self-care (01) ==
PROVIDERS: PCP Internal Medicine; Visit Provider Internal Medicine
DX: I10 Essential (primary) hypertension (principal); E78.5 Hyperlipidemia, unspecified; E11.9 Type 2 diabetes mellitus without complications; F41.0 Panic disorder [episodic paroxysmal anxiety]

== ENCOUNTER → 2024-08-04 12:10 | Outpatient (BNVA) | payer MEDICARE, MEDICAID, SELFPAY | PROVIDERS: PCP Internal Medicine; Visit Provider Internal Medicine | DX: I10 Essential (primary) hypertension (principal); E78.5 Hyperlipidemia, unspecified; E11.9 Type 2 diabetes mellitus without complications; F41.0 Panic disorder [episodic paroxysmal anxiety] | CPT/HCPCS: 99212 ==

== ENCOUNTER 2024-08-18 10:20 | Outpatient (REF) | payer MEDICARE, MEDICAID, SELFPAY ==
--- OUTSIDE RECORDS SUMMARY | 2024-08-18 12:45 | XMS_ITS | Continuity of Care Document ---
Author Organization [facility] Address [address] [facility] [address] [place] [address] Phone Care Team Providers Care Stamping Press Operator Name Role Phone Karo Harp, Anitha [...] Diagnoses Date Provider Providers Copied on Encounter [facility], [address] [place] [address], [id number] , tel:[phone] [facility] No Information 4 Karo Welsh. [address] [facility] [address], [place], [id number] , . tel:[phone] Referring Provider: Radha Martins MD C, [address], [address] . tel:[phone] Office outpt new 30 min [facility], [address] [facility] [address], [id number] , tel:[phone] [facility] Bilateral Leg CVI & Lt. foot Venous Stasis Ulcer (chief complaint) Varicose veins with ulcerVaricose veins with other complicationsObesity Diabetes Mellitus Type 2, Uncomplicated 4 Karo Welsh. [address] [facility], [address], [place], [place], [id number] , [place]. tel:[phone] Referring Provider: Radha Martins MD C, [address] [facility] [address], [place], [address] . tel:[phone] Family History Family Member Type Diagnosis Age At Onset No Information Payers Payer name Insurance type Covered democrat ID Authoriza tion(s) [employer] Hmo OCN [place] CAP [id number] Social History Type Description Quantity Date Captured [...] LLE vein stripping (2003 in [place] of [place]) then Tx'ed by other surgeons in [place] up to last yr. Pt. has had significant Bilateral LLE below the knee dark brown discoloration (Lt. > Rt.) & Lt. LLE Ulcer in Lt. Medial Malleolar area being treated at present by [facility] Wound [facility] (Dr. Carlos), but [...]
--- OUTSIDE RECORDS SUMMARY | 2024-08-18 12:45 | XMS_ITS | Continuity of Care Document ---
Author Organization [facility] Address [address] [place] [address] Phone Care Team Providers Care 2Nd Pressman Name Role Phone David Haddad MD, FACS [...] Providers Copied on Encounter OFFICE/OUTPA TIENT VISIT, [facility], [address] [facility] [address], [place], [id number], [place] tel: [phone] [place] 3 Varicose Veins With Inflammation Sep-0 6 3 Wixon Dann er. 4750 [facility], [address], [id number] , [place]. tel: [phone] Referring Provider: David Covarrubias, [facility] [address], [place], [address]. tel:[phone] [facility], [address] [place] [address], [place], [id number], [place] tel: [phone] [facility] Varicose Veins With InflammationVen ous insufficiency, ChronicSwelling of limbPostphlebet ic syndrome with inflammation Sep-0 4 3 Viviane Rodriguez. [address]50 [facility], Ivan [address] [place] [address], [id number] . tel: [phone] OFFICE/OUTPA TIENT VISIT, [facility], [facility] [address], [place], [id number], [place] tel: [phone] [place] 3 Varicose Veins With Inflammation Jan- 3 Geexon Dann er. [address] [facility], [facility] [address], [place], [id number] , [place]. tel: [phone] Referring Provider: David Covarrubias, [facility]0 [address], [address]. tel:[phone] [facility], [address] [place], [place] [address], [place], [id number], [place] tel:[phone] Procedure No Information 3 Catie Quigley er. [address], [id number] , . tel: [phone] Referring Provider: David Covarrubias, [address] [place] [address], [address]. tel:[phone] OFFICE/OUTPA TIENT VISIT, [facility], [address] [place] [address], [id number], tel: [phone] [place] 3 Varicose Veins With Inflammation Nov- 2- 3 Wixtatum Quigley er. [address] [place] [address], [id number] , [place]. tel: [phone] Referring Provider: David Covarrubias, [address] [place] [address], [address]. 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 [address] [place] [address], [id number] , [place]. tel: [phone] Referring Provider: Hemal Miranda, [facility]6 [facility] [address] [place] [address], [address]. tel:[phone] [facility], [address] [place] [address], [id number], tel: [phone] [facility] No Information 0 3 Catie Quigley er. [address] [place] [address], [id number] , [place]. tel: [phone] Family History Family Member Type Diagnosis Age At Onset Family Hx of Problem (finding) Obesity Family Hx of Problem (finding) Varicose Veins Family Hx of Problem (finding) DVT Family Hx of Problem (finding) Diabetes mellitus Family Hx of Problem (finding) hypertension Payers Payer name Insurance type Covered republican ID Authorlamonta donnieon(s) [employer] Choice PPO Medicare Plan CI [id number] Social History Type Description Quantity Date Captured [...]
[2024-08-23 07:29] LABS: Metanephrine, Free <25 pg/mL (<=57); Normetanephrines, Free 43 pg/mL (<=148); Total Metanephrine, Free 43 pg/mL (<=205)
[2024-08-28 18:28] LABS: Aldosterone/Renin Ratio 0.9 Ratio (0.9-28.9); Plasma Renin Activity 7.58 ng/mL/h (0.25-5.82)
== END 2024-08-18 10:21 | disposition home or self-care (01) ==
LOC: HO.LAB 10:20
PROVIDERS: PCP Internal Medicine; Referring Provider Internal Medicine; Visit Provider Internal Medicine Hypertension Specialist
DX: I10 Essential (primary) hypertension (principal); Z79.899 Other long term (current) drug therapy; Z79.01 Long term (current) use of anticoagulants
CPT/HCPCS: 36415; 82088; 83835; 99202

== ENCOUNTER 2024-08-18 10:20 | Outpatient (AMB) | payer MEDICARE, MEDICAID, SELFPAY ==
[2024-08-18 10:21] VITALS: BP 112/72; PULSE 76; O2SAT 98; BMI 42.5
--- NOTE | 2024-08-18 10:21 | HO.NEPHOV ---
Vital Signs 08/18/24 10:21 Height 5 ft 9 in Weight 288 lb BMI 42.5 BP 112/72 Blood Pressure Location Lt brachial Position Sitting Pulse 76 Pulse Source Pulse Oximeter Pulse Oximetry (%) 98 Oxygen Delivery Method Room Air Intake Visit Reasons: INP: Hypertension [place] Ring Coverer Required: No Accompanied by: Spouse Allergies A & D Allergy (Severe, Verified 08/18/24 10:22) anaphylaxis bacitracin [BACITRACIN] Allergy (Severe, Verified 08/18/24 10:22) SEIZURE , anaphylaxis Sulfa (Sulfonamide Antibiotics) Allergy (Mild, Verified 08/18/24 10:22) SWELLING adhesive tape Allergy (Verified 08/18/24 10:22) Rash atenolol Allergy (Verified 08/18/24 10:22) Heart block AV second degree gabapentin Allergy (Verified 08/18/24 10:22) Hives, elevated BP, leg twitching dapagliflozin [From Farxiga] Adverse Reaction (Intermediate, Verified 08/18/24 10:22) Abdominal Pain [facility]ul[facility]lutide [[facility] Adverse Reaction (Intermediate, Verified 08/18/24 10:22) Diarrhea, vomiting lisinopril Adverse Reaction (Intermediate, Verified 08/18/24 10:22) Dizziness lamotrigine Adverse Reaction (Verified 08/18/24 10:22) elevated BP, dizziness sweating tirzepatide [From Mounjaro] Adverse Reaction (Verified 08/18/24 10:22) Constipation SSRI Adverse Reaction (Intermediate, Uncoded 08/04/24 12:22) DECREASE LIBIDO Medication List - Last Reconciled 08/18/24 by Guido Urbano MD blood sugar diagnostic ([employer] Ultra Test strips) test blood sugar once a day blood-glucose meter ([employer] Ultra2 Meter kit) As directed blood-glucose sensor ([email or web address] G7 Sensor device) As directed CPAP (CPAP Machine/Device) auto PAP 6-20 cm with heated humidification with needed supplies diphenhydramine HCl (Benadryl) 50 mg (2 x 25 mg) PO Q6H PRN lancets ([employer] UltraSoft Lancets) TID lancets ([employer] Delica Lancets) test blood sugar daily lancing device with lancets ([employer] Delica Lancing Device kit) testing blood sugar once daily losartan 50 mg PO DAILY metformin ER 1,500 mg PO DAILY simvastatin 40 mg PO DAILY warfarin 7.5 mg PO DAILY HPI Comments Details: 54-year-old man with a history of obesity and obstructive sleep apnea referred for management of hypertension. He has had hypertension for almost 4 years. Previously was on atenolol. He developed bradycardia therefore atenolol was discontinued. He was subsequently placed on losartan 50 mg. He has had episodes of low blood pressure. He was treated with gabapentin and developed a rash which was discontinued. Subsequently replace with Lamictal and he reacted to this as well which caused significant weakness. He had mild hyponatremia 133. Blood pressure spiked to 220 mm Hg systolic he was in the hospital. After discontinuing the medication blood pressure stabilized. He is here for further evaluation. History of factor 5 laden deficiency. He is on Coumadin. History of obesity [facility] Medical History Hypertension DM type 2 (diabetes mellitus, type 2) Factor 5 Leiden mutation, heterozygous Heart block AV second degree Vitamin B 12 deficiency Dizziness Annual physical exam Skin abnormalities STD (male) Venous (peripheral) insufficiency Obesity Hyperlipidemia PVD (peripheral vascular disease) DVT (deep venous thrombosis) SOB (shortness of breath) Surgical History Hx of esophagogastroduodenoscopy Hx of colonoscopy H/O vascular surgery Family History Father CVD (cardiovascular disease) Mother CVD (cardiovascular disease) Daughter No problems noted. Son No problems noted. Social History Household Members: Spouse and Significant Other Housing: House Are you a primary home care physical therapist to a significant other at home: No Do you presently have visiting nurse or other home services: No Unable to assess alcohol history related to: Unknown Patient Tobacco Use Status: Former Tobacco user Tobacco use type: Cigarette e-Cigarette/Vaping Use: Never Used Second Hand Smoke Exposure: No (none) service: No Current occupational status: employed Cognitive needs: No Hearing needs: No Vision needs: No Review of Systems Const Denies fever(s) and Denies weight loss Card Denies chest pain Resp Denies cough and Denies hemoptysis GI Denies abdominal pain, Denies diarrhea and Denies nausea Musc Denies back pain Neuro Denies focal weakness Physical Exam Vital Signs: Last Vital Signs Pulse 76 08/18/24 10:21 BP 112/72 08/18/24 10:21 Pulse Ox 98 08/18/24 10:21 Oxygen Delivery Method Room Air 08/18/24 10:21 BMI result Body Mass Index 42.5 Blood pressure 110/60 mm Hg sitting and 120/70 standing. Asymptomatic Const General: comfortable; No acute distress Orientation/consciousness: patient oriented x3 Eyes General: appearance normal, both eyes and all related structures Visual Hanna: normal visual hanna by confrontation Neck Neck: Yes supple and Yes no JVD Resp Effort & Inspection: normal respiratory effort and respiratory effort not decreased Auscultation: rhonchi Cardio Palpation: no palpable S3 and no palpable S4 Heart sounds: no rubs GI Inspection: Yes normal to inspection Palpation (GI): Soft to palpation Percussion: Yes normal to percussion Auscultation: normal bowel sounds General: Yes no CVA tenderness Back/Spine/Pelvis Back: no CVA tenderness Skin General skin exam: no petechiae and no purpura Neuro General: patient oriented x3 and no focal motor deficits Extrem General: No clubbing and No edema Results Reviewed Nephrology Results: Hgb 14.9 g/dl (14.0-18.0) 08/03/24 WBC 8.3 X10*3/uL (4.8-10.8) 08/03/24 Plt Count 219 X10*3/uL (160-400) 08/03/24 Sodium 140 mmol/L (135-145) 08/03/24 Potassium 4.4 mmol/L (3.3-5.1) 08/03/24 Chloride 104 mmol/L (96-108) 08/03/24 Carbon Dioxide 26 mmol/L (22-29) 08/03/24 BUN 14 mg/dL (9-16) 08/03/24 Creatinine 0.84 mg/dL (0.5-1.4) 08/03/24 Calcium 9.9 mg/dL (8.4-10.2) 08/03/24 Urine Protein Negative mg/dL (Neg-Trace) 07/06/24 Assessment & Plan Assessment & Plan (1) Hypertension: Comment: Could not tolerate lisinopril causes dizziness, atenolol caused second-degree AV Code(s): I10 - Essential (primary) hypertension Category: Medical Qualifiers: Hypertension type: primary hypertension Qualified Code(s): I10 - Essential (primary) hypertension Plan 53-year-old man with obesity and obstructive sleep apnea with hypertension. Blood pressure well controlled at this time. He has had episodes of hypertension as well as blood pressure spikes. I will obtain 24 hour ABPM before make any changes. Also check plasma metanephrines. Encouraged stay on low-sodium diet continue to use CPAP regularly. Further management will be based on the above baseline investigations. Orders: Orders AMB 24 HR B/P Monitor PLACEMENT Today I10 - Essential (primary) hypertension Metanephrines, Plasma Today I10 - Essential (primary) hypertension Aldost/Renin Today I10 - Essential (primary) hypertension Coding Level of Care Code New Pt Level 5 (96683) Diagnoses Primary hypertension I10 Hypertension type: primary hypertension
--- OUTSIDE RECORDS SUMMARY | 2024-08-18 11:51 | XMS_ITS ---
Author Name [facility] Organization Unknown Results Test Name/Text Value Interpretation Date Range Source HIV 1+2 Ab+HIV1 p24 Ag Ser EIA-aCnc Normal [id number] - [facility] Magnesium SerPl-mCnc 2mg/dL Normal [id number] 1.6 - 2.7 [facility] Globulin Ser Calc-mCnc 3.4g/dL Normal [id number] 1.5 - 3.9 [facility] ALT SerPl-cCnc 24U/L Normal [id number] 10 - 55 HH CCT AST SerPl-cCnc 37U/L Normal [id number] 10 - 55 HH CCT GFR/BSA.pred SerPlBld [id number] 90 Normal [id number] 59 - [facility] Albumin SerPl-mCnc 4.1g/dL Normal [id number] 3.5 - 5 [facility] Albumin/Glob SerPl 1.2Ratio Normal [id number] [facility] Creat SerPl-mCnc 0.7mg/dL Normal [id number] 0.5 - 1.3 [facility] Bilirub SerPl-mCnc 0.6mg/dL Normal [id number] 0.2 - 1 [facility] Anion Gap Bld-sCnc 10 Normal [id number] 7 - 17 [facility] Sodium SerPl-sCnc 134mmol/L Below low normal [id number] 13 6 - 145 [facility] Potassium SerPl-sCnc 4.6mmol/L Normal [id number] 3.4 - 5.3 [facility] Chloride SerPl-sCnc 100mmol/L Normal [id number] 98 - 10 7 [facility] Glucose SerPl-mCnc 181mg/dL Above high normal [id number] 65 - 99 [facility] Prot SerPl-mCnc 7.5g/dL Normal [id number] 6.3 - 8.3 H [facility]CT BUN/Creat SerPl 20Ratio Normal [id number] 10 - 25 H [facility]CT Calcium SerPl-mCnc 9.7mg/dL Normal [id number] 8.7 - 10 .5 [facility] CO2 SerPl-sCnc 24mmol/L Normal [id number] 22 - 33 HH CCT BUN SerPl-mCnc 14mg/dL Normal [id number] 8 - 21 HH CCT ALP SerPl-cCnc 56U/L Normal [id number] 45 - 128 HH CCT Imm Granulocytes/leuk NFr Bld Auto 0.4% Normal [id number] [facility] Lymphocytes/leuk NFr Bld Auto 18.9% Normal [id number] [facility] PMV Bld Auto 9.3fL Normal [id number] 7.5 - 12.[address] Monocytes num Bld Auto 0.45Thou/uL Normal [id number] 0. 2 - 1.5 [facility] Hct VFr Bld Auto 45% Normal [id number] 39 - 54 [facility] Neutrophils num Bld Auto 5.37Thou/uL Normal [id number] 2 - 7.5 [facility] Neutrophils/leuk NFr Bld Auto 72.8% Normal [id number] [facility] Basophils/leuk NFr Bld Auto 0.7% Normal [id number] [facility] Basophils num Bld Auto 0.05Thou/uL Normal [id number] 0 - 0.2 [facility] Monocytes/leuk NFr Bld Auto 6.1% Normal [id number] [facility] Eosinophil num Bld Auto 0.08Thou/uL Normal [id number] 0 - 0.7 [facility] MCH RBC Qn Auto 30.6pg Normal [id number] 27 - 31 H [facility] Eosinophil/leuk NFr Bld Auto 1.1% Normal [id number] [facility] Imm Granulocytes num Bld Auto 0.03Thou/uL Normal [id number] 0 - 0.1 [facility] RDW RBC Auto-Rto 12.8% Normal [id number] 11.5 - 14. 5 [facility] Platelet num Bld Auto 221Thou/uL Normal [id number] 150 - 450 [facility] MCHC RBC Auto-mCnc 33.1g/dL Normal [id number] 30 - 36 [facility] MCV RBC Auto 92fL Normal [id number] 80 - 100 HHCC T WBC num Bld Auto 7.4Thou/uL Normal [id number] 4 - 11 [facility] RBC num Bld Auto 4.87Mil/uL Normal [id number] 4.5 - 6.2 [facility]CT Hgb Bld-mCnc 14.9g/dL Normal [id number] 13 - 17.7 HHCC T Lymphocytes num Bld Auto 1.39Thou/uL Below low normal [id number] 1.5 - 4.5 [facility]CT Troponin T SerPl-mCnc 6ng/L Normal [id number] - 23 [facility] Delta Normal [id number] - 3 [facility] pro BNP, N-terminal 36pg/mL Normal [id number] - 125 [facility] D dimer FEU PPP-mCnc 150ng/mLDDU Normal [id number] - 23 0 [facility] Globulin Ser Calc-mCnc 3.5g/dL Normal [id number] 1.5 - 3.9 [facility]CT ALT SerPl-cCnc 25U/L Normal [id number] 10 - 55 HH CCT AST SerPl-cCnc 32U/L Normal [id number] 10 - 55 HH CCT GFR/BSA.pred SerPlBld [id number] 90 Normal [id number] 59 - [facility]CT Albumin SerPl-mCnc 4.1g/dL Normal [id number] 3.5 - 5 [facility] Albumin/Glob SerPl 1.2Ratio Normal [id number] [facility] Creat SerPl-mCnc 0.8mg/dL Normal [id number] 0.5 - 1.3 [facility]CT Bilirub SerPl-mCnc 0.4mg/dL Normal [id number] 0.2 - 1 [facility] Anion Gap Bld-sCnc 15 Normal [id number] 7 - 17 [facility] Sodium SerPl-sCnc 136mmol/L Normal [id number] 136 - 145 [facility] Potassium SerPl-sCnc 4.4mmol/L Normal [id number] 3.4 - 5.3 [facility]CT Chloride SerPl-sCnc 100mmol/L Normal [id number] 98 - 10 7 [facility] Glucose SerPl-mCnc 194mg/dL Above high normal [id number] 65 - 99 [facility] Prot SerPl-mCnc 7.6g/dL Normal [id number] 6.3 - 8.3 H HCCT BUN/Creat SerPl 20Ratio Normal [id number] 10 - 25 H HCCT Calcium SerPl-mCnc 9mg/dL Normal [id number] 8.7 - 10 .5 [facility]CT CO2 SerPl-sCnc 21mmol/L Below low normal [id number] 22 - 33 [facility] BUN SerPl-mCnc 16mg/dL Normal [id number] 8 - 21 HH CCT ALP SerPl-cCnc 57U/L Normal [id number] 45 - 128 HH CCT Imm Granulocytes/leuk NFr Bld Auto 0.5% Normal [id number] [facility]CT Lymphocytes/leuk NFr Bld Auto 16.3% Normal [id number] [facility] PMV Bld Auto 9.1fL Normal [id number] 7.5 - 12.[address] Monocytes num Bld Auto 0.46Thou/uL Normal [id number] 0. 2 - 1.5 [facility] Hct VFr Bld Auto 42.6% Normal [id number] 39 - 54 [facility] Neutrophils num Bld Auto 7.16Thou/uL Normal [id number] 2 - 7.5 [facility]CT Neutrophils/leuk NFr Bld Auto 76.7% Normal [id number] [facility]CT Basophils/leuk NFr Bld Auto 0.6% Normal [id number] [facility] Basophils num Bld Auto 0.06Thou/uL Normal [id number] 0 - 0.2 [facility]CT Monocytes/leuk NFr Bld Auto 4.9% Normal [id number] [facility]CT Eosinophil num Bld Auto 0.09Thou/uL Normal [id number] 0 - 0.7 [facility]CT MCH RBC Qn Auto 30.6pg Normal [id number] 27 - 31 H [facility]CT Eosinophil/leuk NFr Bld Auto 1% Normal [id number] [facility] Imm Granulocytes num Bld Auto 0.05Thou/uL Normal [id number] 0 - 0.1 [facility]CT RDW RBC Auto-Rto 12.7% Normal [id number] 11.5 - 14. 5 [facility] Platelet num Bld Auto 227Thou/uL Normal [id number] 150 - 450 [facility]CT MCHC RBC Auto-mCnc 33.8g/dL Normal [id number] 30 - 36 [facility] MCV RBC Auto 91fL Normal [id number] 80 - 100 [facility] T WBC num Bld Auto 9.3Thou/uL Normal [id number] 4 - 11 [facility] RBC num Bld Auto 4.7Mil/uL Normal [id number] 4.5 - 6.2 HHCCT Hgb Bld-mCnc 14.4g/dL Normal [id number] 13 - 17.7 CC T Lymphocytes num Bld Auto 1.52Thou/uL Normal [id number] 1.5 - 4.5 HHCCT
--- OUTSIDE RECORDS SUMMARY | 2024-08-18 11:51 | XMS_ITS | Continuity of Care Document ---
Author Organization [facility] Address [address] [place] [id number] Phone Care Team Providers Care Thread Weaver Name Role Phone David Haddad MD, FACS [...] Providers Copied on Encounter OFFICE/OUTPA TIENT VISIT, [facility], [address] [facility] [address], [place], [id number], [place] tel: [phone] [place] 3 Varicose Veins With Inflammation Sep-0 6 3 Wixon Dann er. [address] [facility], [address], [id number] , [place]. tel: [phone] Referring Provider: David Covarrubias, [facility] [address], [place], [address]. tel:[phone] [facility], [address] [place] [address], [place], [id number], [place] tel: [phone] [facility] Varicose Veins With InflammationVen ous insufficiency, ChronicSwelling of limbPostphlebet ic syndrome with inflammation Sep-0 [address] [facility], Ivan [address] [place] [address], [id number] . tel: [phone] OFFICE/OUTPA TIENT VISIT, [facility], [facility] [address], [place], [id number], [place] tel: [phone] [place] 3 Varicose Veins With Inflammation Jan- 3 Geexon Dann er. [address] [facility], [place] [address], [place], [id number] , [place]. tel: [phone] Referring Provider: David Covarrubias, [facility] [address], [address]. tel:[phone] [facility], [address] [place], [place] [address], [place], [id number], [place] tel:[phone] Procedure No Information 3 Catie Quigley er. [address], [id number] , . tel: [phone] Referring Provider: David Covarrubias, [address] [place] [address], [address]. tel:[phone] OFFICE/OUTPA TIENT VISIT, [facility], [address] [place] [id number], tel: [phone] [place] 3 Varicose Veins With Inflammation Nov- 2- 3 Wixtatum Quigley er. [address] [place] [address], [id number] , [place]. tel: [phone] Referring Provider: David Covarrubias, [address] [place] [address], [address]. tel:[phone] OFFICE/OUTPA TIENT VISIT, [facility], [address] [place] [address], [id number], tel: [phone] [place] 3 Postphlebetic syndrome with inflammation Nov-0 3 Catie Quigley er. [address] [place] [address], [id number] , [place]. tel: [phone] Referring Provider: Hemal Miranda, [facility] [address] [place] [address], [address]. tel:[phone] [facility], [address] [place] [address], [id number], tel: [phone] [facility] No Information 0 3 Catie Quigley er. [address] [place] [address], [id number] , [place]. tel: [phone] Family History Family Member Type Diagnosis Age At Onset Family Hx of Problem (finding) Obesity Family Hx of Problem (finding) Varicose Veins Family Hx of Problem (finding) DVT Family Hx of Problem (finding) Diabetes mellitus Family Hx of Problem (finding) hypertension Payers Payer name Insurance type Covered democrat ID Authorlamonta donnieon(s) [employer] Choice PPO Medicare Plan CI [id number] Social History Type Description Quantity Date Captured [...]
--- OUTSIDE RECORDS SUMMARY | 2024-08-18 11:51 | XMS_ITS | Continuity of Care Document ---
Author Organization [facility] Address [address] [place] [address] Phone Care Team Providers Care Trial Justice Name Role Phone Karo Harp, Anitha SAN [...] Diagnoses Date Provider Providers Copied on Encounter [facility], [address] [place] [address], [id number] , tel:[phone] [facility] No Information 4 Karo Welsh. [address] [facility] [address], [place], [id number] , . tel:[phone] Referring Provider: Radha Martins MD C, [address], [address] . tel:[phone] Office outpt new 30 min [facility], [address] [facility] [address], [place], [id number] , tel:[phone] [facility] Bilateral Leg CVI & Lt. foot Venous Stasis Ulcer (chief complaint) Varicose veins with ulcerVaricose veins with other complicationsObesity Diabetes Mellitus Type 2, Uncomplicated 4 Karo Welsh. [address], [address], [place], [place], [id number] , [place]. tel:[phone] Referring Provider: Radha Martins MD C, [address], [place], [address] . tel:[phone] Family History Family Member Type Diagnosis Age At Onset No Information Payers Payer name Insurance type Covered libertarian ID Authoriza tion(s) Hum[employer] Hmo OCN [place] CAP [id number] Social History Type Description Quantity Date Captured [...] LLE vein stripping (2003 in [place] of [place]) then Tx'ed by other surgeons in [place] up to last yr. Pt. has had significant Bilateral LLE below the knee dark brown discoloration (Lt. > Rt.) & Lt. LLE Ulcer in Lt. Medial Malleolar area being treated at present by [facility] (Dr. Carlos), but [...]
== END 2024-08-18 10:43 | disposition home or self-care (01) ==
PROVIDERS: PCP Internal Medicine; Referring Provider Internal Medicine; Visit Provider Internal Medicine Hypertension Specialist
DX: I10 Essential (primary) hypertension (principal)
CPT/HCPCS: 99204

== ENCOUNTER 2024-08-21 13:30 | Outpatient (AMB) | payer MEDICARE, MEDICAID, SELFPAY ==
[2024-08-21 13:37] VITALS: BP 118/78; PULSE 88; BMI 42.3
--- NOTE | 2024-08-21 13:37 | A.OFFVIS_ITS ---
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: No Allergies A & D Allergy (Severe, Verified 08/18/24 10:22) anaphylaxis bacitracin [BACITRACIN] Allergy (Severe, Verified 08/18/24 10:22) SEIZURE , anaphylaxis Sulfa (Sulfonamide Antibiotics) Allergy (Mild, Verified 08/18/24 10:22) SWELLING adhesive tape Allergy (Verified 08/18/24 10:22) Rash atenolol Allergy (Verified 08/18/24 10:22) Heart block AV second degree gabapentin Allergy (Verified 08/18/24 10:22) Hives, elevated BP, leg twitching dapagliflozin [From Farxiga] Adverse Reaction (Intermediate, Verified 08/18/24 10:22) Abdominal Pain [facility]ulaglutide [facility] Adverse Reaction (Intermediate, Verified 08/18/24 10:22) Diarrhea, vomiting lisinopril Adverse Reaction (Intermediate, Verified 08/18/24 10:22) Dizziness lamotrigine Adverse Reaction (Verified 08/18/24 10:22) elevated BP, dizziness sweating tirzepatide [From Mounjaro] Adverse Reaction (Verified 08/18/24 10:22) Constipation SSRI Adverse Reaction (Intermediate, Uncoded 08/04/24 12:22) DECREASE LIBIDO Medication List - Last Reconciled 08/21/24 by Anup Herrmann MD blood sugar diagnostic ([employer] Ultra Test strips) test blood sugar once a day blood-glucose meter ([employer] Ultra2 Meter kit) As directed blood-glucose sensor (Dexcom G7 Sensor device) As directed CPAP (CPAP Machine/Device) auto PAP 6-20 cm with heated humidification with needed supplies diphenhydramine HCl (Benadryl) 50 mg (2 x 25 mg) PO Q6H PRN lancets ([employer] UltraSoft Lancets) TID lancets ([employer] Delica Lancets) test blood sugar daily lancing device with lancets ([employer] Delica Lancing Device kit) testing blood sugar once daily losartan 50 mg PO DAILY metformin ER 1,500 mg PO DAILY simvastatin 40 mg PO DAILY warfarin 7.5 mg PO DAILY HPI Comments Details: Jameel comes for follow-up. Continues to have these episodes of altered consciousness and mental status with preceding symptoms of right-sided jaw discomfort and numbness around his mouth and then feeling like he was going to pass out. After atenolol discontinuation his blood pressure is significantly elevated. Now he is on losartan therapy and blood pressure is generally well controlled with most of the blood pressure readings in the 120 systolic. He says at nighttime when he lays down in bed his blood pressure sometimes goes down to 96 although he was no symptoms at that time. He denies any clear orthostatic symptoms. Denies any exertional chest pain or shortness of breath. Uses CPAP regularly. Has a follow-up appointment with Nephrology for 24 hour blood pressure monitoring as well as a follow-up with Neurology. He has been tried on couple of different antiepileptic drugs and has developed side effects with them. He said he has been participating aggressive lifestyle modification to try to lose weight. He was also cut down the salt intake significantly [facility] Medical History (Updated 08/21/24 @ 14:09 by Anup Herrmann MD) Heart block AV second degree Hypertension DM type 2 (diabetes mellitus, type 2) Factor 5 Leiden mutation, heterozygous Vitamin B 12 deficiency Dizziness Annual physical exam Skin abnormalities STD (male) Venous (peripheral) insufficiency Obesity Hyperlipidemia PVD (peripheral vascular disease) DVT (deep venous thrombosis) SOB (shortness of breath) Surgical History Hx of esophagogastroduodenoscopy Hx of colonoscopy H/O vascular surgery Family History Father CVD (cardiovascular disease) Mother CVD (cardiovascular disease) Daughter No problems noted. Son No problems noted. Social History Household Members: Spouse and Significant Other Housing: House Are you a primary animal caretaker supervisor to a significant other at home: No Do you presently have visiting nurse or other home services: No Unable to assess alcohol history related to: Unknown Patient Tobacco Use Status: Former Tobacco user Tobacco use type: Cigarette e-Cigarette/Vaping Use: Never Used Second Hand Smoke Exposure: No (none) service: No Current occupational status: employed Cognitive needs: No Hearing needs: No Vision needs: No Review of Systems Const Denies chills, Denies fatigue, Denies fever(s), Denies frequent falls, Denies weakness, Denies weight gain and Denies weight loss ENT Denies dizziness Card Denies chest pain, Denies leg edema, Denies lightheadedness, Denies palpitations, Denies dyspnea, Denies dyspnea on exertion, Denies orthopnea and Denies other (loss of consciousness) Resp Denies cough, Denies dyspnea and Denies dyspnea on exertion GI Denies hematochezia and Denies change in stool character Musc Denies abnormal gait, Denies muscle weakness, Denies numbness, Denies radiating pain into limb and Denies tingling Neuro Denies abnormal gait, Denies dizziness, Denies frequent falls, Denies numbness, Denies tingling and Denies weakness Endo Denies fatigue and Denies palpitations Physical Exam Vital Signs: Last Vital Signs Pulse 88 08/21/24 13:37 BP 118/78 08/21/24 13:37 BMI result Body Mass Index 42.3 Const General: cooperative, healthy appearing (Morbidly obese), comfortable and no acute distress Orientation/consciousness: patient oriented x3 Neck Neck: Yes normal visual inspection and Yes no JVD Resp Effort & Inspection: normal respiratory effort Auscultation: clear to auscultation bilaterally, no crackles, no rales, no rhonchi and no wheezes Cardio Jugular venous distension: no JVD Rate: regular rate Rhythm: regular rhythm Heart sounds: S1 normal heart sound present, S2 normal heart sound present, no murmurs and no rubs Neuro General: patient oriented x3 Extrem General: Yes normal to inspection, No no pedal edema and No calf tenderness Psych Appearance: grossly normal Mental Status: mental status grossly normal Speech and movement: Normal speech and movement present Assessment & Plan Assessment & Plan (1) Hypertension: Comment: Could not tolerate lisinopril causes dizziness, atenolol caused second-degree AV Code(s): I10 - Essential (primary) hypertension Category: Medical Qualifiers: Hypertension type: primary hypertension Qualified Code(s): I10 - Essential (primary) hypertension Plan: Patient was significant hypertension without any clear evidence of orthostasis. Currently blood pressure is well optimized on losartan therapy. He is very worried about low blood pressure reading. Will follow up with Nephrology to pursue 24 hour blood pressure readings. Continue with low-salt diet. Continue participate in aggressive weight loss program with diet modification regular physical activity. Continue aggressive diabetes management goal hemoglobin A1c less than 7%. Encouraged to maintain low-salt diet. Maintain adequate hydration. (2) Heart block AV second degree: Comment: on Atenolol, admitted to [facility], resolved after stopping Atenolol 03/29 Code(s): I44.1 - Atrioventricular block, second degree Category: Medical Plan: Transient second-degree AV block which resolved after stopping atenolol therapy. Continue to avoid rate lowering medications. Continue losartan for blood pressure control. No indication for pacemaker therapy. Continue CPAP therapy. Will follow up in the clinic in 1 year's time, sooner p.r.n.. Thank you allowing me to partake in his care Coding Level of Care Code Est Pt Level 4 (27286) Complex EM visit Add On G2211 Diagnoses Primary hypertension I10 Hypertension type: primary hypertension Heart block AV second degree I44.1
== END 2024-08-21 14:05 | disposition home or self-care (01) ==
PROVIDERS: PCP Internal Medicine; Visit Provider Internal Medicine Cardiovascular Disease
DX: I10 Essential (primary) hypertension (principal); I44.1 Atrioventricular block, second degree
CPT/HCPCS: 99214; G2211

== ENCOUNTER → 2024-08-21 13:30 | Outpatient (BNVA) | payer MEDICARE, MEDICAID, SELFPAY | PROVIDERS: PCP Internal Medicine; Visit Provider Internal Medicine Cardiovascular Disease | DX: I10 Essential (primary) hypertension (principal); I44.1 Atrioventricular block, second degree; Z99.89 Dependence on other enabling machines and devices | CPT/HCPCS: 99212 ==

== ENCOUNTER → 2024-08-22 15:37 | Outpatient (BNVA) | payer MEDICARE, MEDICAID, SELFPAY | PROVIDERS: PCP Internal Medicine; Visit Provider Internal Medicine Hypertension Specialist | DX: I10 Essential (primary) hypertension (principal) | CPT/HCPCS: 93786 ==

== ENCOUNTER 2024-08-27 17:55 | Emergency (ER) | payer MEDICARE, MEDICAID, SELFPAY ==
--- NOTE | ~2024-08-27 | CT_ITS ---
CLINICAL HISTORY: dizziness on coumadin CT head without contrast Comparison: Head CT from 07/21/2024 Findings: No acute intracranial hemorrhage. No midline shift or hydrocephalus. 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 No significant change in left frontal encephalomalacia including base and inferior lateral aspect of the left frontal lobe. Adjacent wallerian degeneration is again noted. Mild volume loss is generalized and greater than expected for age with thin bilateral subdural hygromas. Mucosal thickening of the imaged paranasal sinuses. Small right mastoid effusion. No acute skull fracture accounting for motion artifacts. Soft tissue swelling and scalp hematoma particularly of the right parietal convexity; potentially residual. IMPRESSION: 1. No acute intracranial hemorrhage. 2. Small right parietal convexity scalp hematoma. No underlying acute skull fracture. 3. 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 This document has been electronically signed by: Mor Valerio MD on 08/27/2024 21:17:00
[2024-08-27 18:06] VITALS: BP 136/92; PULSE 88; RESP 20; TEMP 36.3; O2SAT 96; BMI 42.7
--- NOTE | 2024-08-27 18:17 | ECG_ITS ---
Test Reason : DIZZINESS Blood Pressure : */* mmHG Vent. Rate : 79 BPM Atrial Rate : 79 BPM P-R Int : 252 ms QRS Dur : 80 ms QT Int : 368 ms P-R-T Axes : 51 -7 30 degrees QTcB Int : 421 ms Sinus rhythm with 1st degree A-V block Otherwise normal ECG When compared with ECG of 03-Aug-2024 19:44, No significant change was found Referred By: Generic ED Physician Electronically Signed By: ALISON SEAY MD
--- NOTE | 2024-08-27 18:38 | PC.NURSE ---
patient ambulated to the bathroom with steady gait
--- NOTE | 2024-08-27 18:54 | ED.GENADULT ---
HPI - General Adult General Chief complaint: General Medical Stated complaint: HTN, weakness, dizziness, 1st deg AV block Time Seen by Provider: 08/27/24 18:20 History of Present Illness HPI narrative: patient is a 54-year-old male with a history of dizziness in the past. Patient claims that dizziness same. Patient has a history of diabetes, high blood pressure, high cholesterol, ex-smoker. Patient has a history of first-degree heart block. Never had a heart attack never had a stroke. Patient from home. Feels lightheaded while sitting. Patient feels no fever no chills. At about 17:00 patient on related to the dizziness had some chest tightness. Lasted for about an hour. Subsequently resolved. Has a history of anxiety. Has a history of factor 5. History of blood clots in the past. Patient is on Coumadin. Been compliant with medication. No trauma. No diaphoresis. No syncope. No near syncope. No bloody stool. Related Data Home Medications ?Medication ?Instructions ?Recorded ?Confirmed metformin 750 mg tablet,extended 1,500 mg PO DAILY 03/09/24 08/21/24 release 24 hr Previous Rx's ?Medication ?Instructions ?Recorded blood-glucose meter ([employer] #1 ea 06/02/21 Ultra2 Meter kit) lancing device with lancets kit #1 ea 06/03/21 (Health2[employer]Touch Delica Lancing Device kit) diphenhydramine HCl 25 mg capsule 50 mg (2 x 25 mg) PO Q6H PRN 10/04/21 (Benadryl) allergic reaction #20 caps lancets ([employer]Touch UltraSoft #100 ea 07/19/22 Lancets) lancets 33 gauge (OneTouch Delica #100 ea 07/25/22 Lancets) CPAP (CPAP Machine/Device) #1 ea 08/24/22 blood sugar diagnostic ([employer]Touch #100 ea 02/08/23 Ultra Test strips) simvastatin 40 mg tablet 40 mg PO DAILY #90 tabs 08/12/23 blood-glucose sensor ([employer] G7 #2 ea 03/13/24 Sensor device) losartan 50 mg tablet 50 mg PO DAILY #90 tabs 07/27/24 warfarin 7.5 mg tablet 7.5 mg PO DAILY #90 tabs 07/27/24 Allergies Allergy/AdvReac Type Severity Reaction Status Date / Time A & D Allergy Severe anaphylaxis Verified 08/27/24 18:11 bacitracin [BACITRACIN] Allergy Severe Verified 08/27/24 18:11 SEIZURE , anaphylaxis Sulfa (Sulfonamide Allergy Mild SWELLING Verified 08/27/24 18:11 Antibiotics) adhesive tape Allergy Rash Verified 08/27/24 18:11 atenolol Allergy Heart Verified 08/27/24 18:11 block AV second degree gabapentin Allergy Hives, Verified 08/27/24 18:11 elevated BP, leg twitching dapagliflozin [From Farxiga] AdvReac Intermediate Abdominal Verified 08/27/24 18:11 Pain dulaglutide [From Trulicity] AdvReac Intermediate Diarrhea, Verified 08/27/24 18:11 vomiting lisinopril AdvReac Intermediate Dizziness Verified 08/27/24 18:11 lamotrigine AdvReac elevated Verified 08/27/24 18:11 BP, dizziness sweating tirzepatide [From Mounjaro] AdvReac Constipatio Verified 08/27/24 18:11 n SSRI AdvReac Intermediate DECREASE Uncoded 08/27/24 18:11 LIBIDO Review of Systems Review of Systems: Positive dizziness positive high blood pressure at home it was 160/100. Yes all other systems are reviewed and are negative PMFSH Past Medical History Attestation statement: The following information was validated with the patient. Medical History Heart block AV second degree Hypertension DM type 2 (diabetes mellitus, type 2) Factor 5 Leiden mutation, heterozygous Vitamin B 12 deficiency Dizziness Annual physical exam Skin abnormalities STD (male) Venous (peripheral) insufficiency Obesity Hyperlipidemia PVD (peripheral vascular disease) DVT (deep venous thrombosis) SOB (shortness of breath) Surgical History Hx of esophagogastroduodenoscopy Hx of colonoscopy H/O vascular surgery Family History Family History Father CVD (cardiovascular disease) Mother CVD (cardiovascular disease) Daughter No problems noted. Son No problems noted. Social History Social History Household Members: Spouse and Significant Other Housing: House Are you a primary career services assistant to a significant other at home: No Do you presently have visiting nurse or other home services: No Unable to assess alcohol history related to: Unknown Patient Tobacco Use Status: Former Tobacco user Tobacco use type: Cigarette e-Cigarette/Vaping Use: Never Used Second Hand Smoke Exposure: No (none) Advance Directives: No Advance Directives Information Provided: Yes Do you have a plan to hurt others: No Plan service: No Current occupational status: employed Cognitive needs: No Hearing needs: No Vision needs: No Physical Exam ED Vital Signs: Vital Signs - 24 hr 08/27/24 18:06 08/27/24 19:01 08/27/24 19:02 Temperature 97.3 F Pulse Rate 88 82 85 Respiratory Rate 20 Blood Pressure 136/92 H 135/83 122/78 Pulse Oximetry 96 Oxygen Delivery Method Room Air 08/27/24 19:03 Temperature Pulse Rate 89 Respiratory Rate Blood Pressure 120/78 Pulse Oximetry Oxygen Delivery Method BMI result Body Mass Index 42.7 Appearance: Alert. Oriented X3. No acute distress. Eyes: Pupils equal, round and reactive to light. ENT: Pharynx normal. Neck: Normal inspection. Neck supple. No lymph nodes noted. No crepitus CVS: Normal heart rate and rhythm. Pulses normal. Normal S1 and S2 Respiratory: No respiratory distress. Breath sounds normal. No Wheezing. No rales Abdomen: Soft and nontender. No rigidity. No distention. good BS x4 Skin: Skin warm and dry. Normal skin color. Normal skin turgor. Extremities: No lower extremity edema. Neurovascular intact to all extremities. No Lacerations. No Rash Neuro: Oriented X 3. No motor deficit. No sensory deficit. Moving all extermities. No slurred speech Medications Administered Discontinued Medications Generic Name Dose Route Start Last Admin Trade Name Freq PRN Reason Stop Dose Admin Sodium Chloride 1,000 mls @ 999 mls/hr 08/27/24 19:00 08/27/24 20:13 Ns IV 08/27/24 20:00 999 mls/hr .Q1H1M [facility] Administration Medical Decision Making Medical Decision Making MDM Narrative: patient complaining of dizziness that is been ongoing. No new dizziness. Patient has been worked up by Cardiology by multiple service for this light-headedness. Patient denies any change in position causing the symptoms. It happens spontaneously it is not associated with any chest pain not associated with any diaphoresis not associated with any near-syncope or syncopal episodes. Patient's hemoglobin is 15.6 there is no evidence for anemia. Patient's INR is 2. In the setting of being on Coumadin unlikely to have pulmonary emboli. Patient is troponin is less than 2.7. Atypical tightness to the chest unlikely to have ACS. My interpretation patient's EKG showed a sinus rhythm heart rate is 70 [place] QRS QTC normal no acute ST segment elevation. CT scan of the head was done because patient is on Coumadin had some dizziness. CT head was negative for any acute evidence of bleeding. No mass. Given patient's overall well appearance. Will discharge patient home. Patient's blood pressure on recheck here is 136/92 Differential Diagnosis Differential Diagnoses: The differential diagnosis associated with the presentation includes dizziness, GI bleed, PE, arrhythmia, ACS, anemia Admission/Observation Consideration of admission/observation: Escalation of care including admission/observation considered Lab Data MDM Lab Attestation statement: I reviewed the patient's lab results. 08/27/24 19:09 08/27/24 19:09 Labs: Lab Results 08/27/24 Range/Units 19:09 WBC 9.3 (4.8-10.8) X10*3/uL RBC 5.10 (4.60-5.80) X10*6/uL Hgb 15.6 (14.0-18.0) g/dl Hct 46.0 (42.0-52.0) % MCV 90.2 (80.0-98.0) fL MCH 30.6 (27.0-33.0) pg MCHC 33.9 (31.0-36.0) g/dl RDW 12.8 (11.0-16.0) % Plt Count 223 (160-400) X10*3/uL MPV 9.1 L (9.4-12.4) fL Immature Gran % (Auto) 0.3 (0.0-0.4) % Neut % (Auto) 74.4 H (45-73) % Lymph % (Auto) 17.6 L (20-40) % [place] % (Auto) 6.2 (2-11) % Eos % (Auto) 1.0 (0-4) % Baso % (Auto) 0.5 (0-2) % Lymph # (Auto) 1.6 (1.2-4.9) X10*3/uL [place] # (Auto) 0.6 (0.1-1.2) X10*3/uL Eos # (Auto) 0.1 (0.0-0.4) X10*3/uL Baso # (Auto) 0.1 (0.0-0.2) X10*3/uL Abs Immat Gran (auto) 0.03 (0.00-0.03) X10*3/uL Absolute Neuts (auto) 6.9 (2.0-8.3) x10*3/uL Absolute Nucleated RBC 0.000 (0.0-0.012) X10*3/uL Nucleated RBC % (auto) 0.0 (0.0-0.2) /100WBC PT 23.5 H (10.9-12.4) SEC INR 2.0 H (0.9-1.1) Sodium 137 (135-145) mmol/L Potassium 4.5 (3.3-5.1) mmol/L Chloride 104 (96-108) mmol/L Carbon Dioxide 26 (22-29) mmol/L Anion Gap 12 (12-20) BUN 16 (9-16) mg/dL Creatinine 0.83 (0.5-1.4) mg/dL Estim Creat Clear Calc 138.2 Estimated GFR > 60 Random Glucose 112 (60-115) mg/dL Calcium 9.9 (8.4-10.2) mg/dL Total Bilirubin 0.5 (0.0-1.0) mg/dL AST 28 (5-37) U/L ALT 32 (0-40) U/L Alkaline Phosphatase 59 (39-117) U/L Troponin I High Sens < 2.7 D (<3.5-35.0) ng/L Total Protein 8.7 H (6.5-8.0) g/dL Albumin 4.4 (3.5-5.0) g/dL Independent Interpretation I performed an independent interpretation of an: EKG and CT Scan Radiology Impression Discussion of test interpretation with radiology: I have reviewed the radiologist's reading. Independent Historian Clinical information obtained from an independent historian. History obtained from or confirmed by: Spouse External Record Review External record reviewed: Inpatient record Discharge Plan Discharge Clinical Impression: Dizziness, Hypertension Patient Disposition: Home, Self-Care Instructions: Hypertension (ED), Dizziness (ED) Prescriptions: No Action (DME) blood-glucose meter [OneTouch Ultra2 Meter] Kit See Rx Instructions .Route Qty: 1 0RF Rx Instructions: As directed (DME) lancing device with lancets [OneTouch Delica Lanc Device] Kit See Rx Instructions .Route Qty: 1 0RF Rx Instructions: testing blood sugar once daily (DME) lancets [OneTouch Delica Lancets] 33 gauge misc See Rx Instructions .Route Qty: 100 3RF Rx Instructions: test blood sugar daily (DME) CPAP Machine/Device Device See Rx Instructions .Route Qty: 1 0RF Rx Instructions: auto PAP 6-20 cm with heated humidification with needed supplies (DME) OneTouch Ultra Test Strip See Rx Instructions .Route Qty: 100 3RF Rx Instructions: test blood sugar once a day simvastatin 40 mg tablet 40 mg PO DAILY Qty: 90 3RF losartan 50 mg tablet 50 mg PO DAILY Qty: 90 1RF warfarin 7.5 mg tablet 7.5 mg PO DAILY Qty: 90 1RF diphenhydramine HCl [Benadryl] 25 mg capsule 50 mg PO Q6H PRN (Reason: allergic reaction) Qty: 20 0RF metformin 750 mg tablet extended release 24 hr 1,500 mg PO DAILY (DME) lancets [OneTouch UltraSoft Lancets] Misc See Rx Instructions .ROUTE .MEDSUPPLY Qty: 100 6RF Rx Instructions: TID (DME) Dexcom G7 Sensor Device See Rx Instructions .Route Qty: 2 2RF Rx Instructions: As directed Referrals: Esha Corbin MD [Primary Care Provider] - 08/29/24 Print Language: Citizen [place]
[2024-08-27 19:01] VITALS: BP 135/83; PULSE 82
[2024-08-27 19:02] VITALS: BP 122/78; PULSE 85
[2024-08-27 19:03] VITALS: BP 120/78; PULSE 89
[2024-08-27 19:13] LABS: MANUAL DIFF FLAG NO
[2024-08-27 19:17] LABS: Basophils Absolute Auto 0.1 X10*3/uL (0.0-0.2); Basophils Percent Auto 0.5 % (0-2); Eosinophils Absolute Auto 0.1 X10*3/uL (0.0-0.4); Hemoglobin 15.6 g/dl (14.0-18.0); Imm Gran Abs Auto 0.03 X10*3/uL (0.00-0.03); Imm Gran Pct Auto 0.3 % (0.0-0.4); Lymphocytes Absolute Auto 1.6 X10*3/uL (1.2-4.9); Lymphocytes Percent Auto 17.6 % (20-40); Mean Corpuscular HGB Conc 33.9 g/dl (31.0-36.0); Mean Corpuscular Hemoglobin 30.6 pg (27.0-33.0); Mean Corpuscular Volume 90.2 fL (80.0-98.0); Mean Platelet Volume 9.1 fL (9.4-12.4); Monocytes Absolute Auto 0.6 X10*3/uL (0.1-1.2); Monocytes Percent Auto 6.2 % (2-11); Neutrophils Absolute Auto 6.9 x10*3/uL (2.0-8.3); Neutrophils Percent Auto 74.4 % (45-73); Platelet Count 223 X10*3/uL (160-400); Red Cell Distribution Width 12.8 % (11.0-16.0); White Blood Count 9.3 X10*3/uL (4.8-10.8)
[2024-08-27 19:22] LABS: Prothrombin Time 23.5 SEC (10.9-12.4)
[2024-08-27 19:37] LABS: Alanine Aminotransferase 32 U/L (0-40); Albumin Level 4.4 g/dL (3.5-5.0); Alkaline Phosphatase 59 U/L (39-117); Anion Gap 12 (12-20); Aspartate Amino Transferase 28 U/L (5-37); Blood Urea Nitrogen 16 mg/dL (9-16); Calcium 9.9 mg/dL (8.4-10.2); Carbon Dioxide 26 mmol/L (22-29); Chloride 104 mmol/L (96-108); Creatinine Clr Calc Pharmacy 138.2; Estimated Glomerular Filt Rate > 60; Glucose Random 112 mg/dL (60-115); Potassium 4.5 mmol/L (3.3-5.1); Sodium 137 mmol/L (135-145); Total Protein 8.7 g/dL (6.5-8.0)
[2024-08-27 19:43] LABS: Troponin-I High Sensitivity < 2.7 ng/L (<3.5-35.0)
[2024-08-27 19:47] LABS: Bilirubin Total 0.5 mg/dL (0.0-1.0)
[2024-08-27] MEDS: 0.9 % Sodium Chloride 1,000 ML 999 ML IV (20:13)
[2024-08-27 21:20] VITALS: BP 123/84; PULSE 71; RESP 12; TEMP 36.7; O2SAT 98
[2024-08-27 21:32] VITALS: BP 123/84; PULSE 71; RESP 12; TEMP 36.7; O2SAT 98
== END 2024-08-27 21:20 | disposition home or self-care (01) ==
PROVIDERS: Emergency Provider Emergency Medicine Emergency Medical Services; PCP Internal Medicine
DX: R42 Dizziness and giddiness (principal); I44.0 Atrioventricular block, first degree; E11.8 Type 2 diabetes mellitus with unspecified complications; I10 Essential (primary) hypertension; E78.00 Pure hypercholesterolemia, unspecified; D68.51 Activated protein C resistance; F41.9 Anxiety disorder, unspecified; Z86.718 Personal history of other venous thrombosis and embolism; Z79.84 Long term (current) use of oral hypoglycemic drugs; Z79.899 Other long term (current) drug therapy
CPT/HCPCS: 36415; 70450; 80053; 84484; 85025; 85610; 93005; 99284

== ENCOUNTER → 2024-08-27 18:17 | Outpatient (BNV) | payer MEDICARE, MEDICAID, SELFPAY | PROVIDERS: Emergency Provider Emergency Medicine Emergency Medical Services; PCP Internal Medicine; Visit Provider Internal Medicine Cardiovascular Disease | DX: R42 Dizziness and giddiness (principal) | CPT/HCPCS: 93010 ==

== ENCOUNTER → 2024-08-27 18:53 | Outpatient (BNV) | payer MEDICARE, MEDICAID, SELFPAY | PROVIDERS: Emergency Provider Emergency Medicine Emergency Medical Services; PCP Internal Medicine; Visit Provider Radiology Neuroradiology | DX: S00.03XA Contusion of scalp, initial encounter (principal) | CPT/HCPCS: 70450 ==

== ENCOUNTER 2024-09-08 13:32 | Outpatient (AMB) | payer MEDICARE, MEDICAID, SELFPAY ==
--- NOTE | 2024-09-08 13:35 | HO.NEPHOV_ITS ---
Vital Signs 09/08/24 13:36 Height 5 ft 9 in Weight 285 lb BMI 42.1 BP 134/78 Blood Pressure Location Rt brachial Position Sitting Pulse 89 Pulse Source Pulse Oximeter Pulse Oximetry (%) 95 Oxygen Delivery Method Room Air Intake Visit Reasons: 24 HR BPM Results-Conf Learning Support Resource Room Teacher Required: No Accompanied by: Spouse Allergies A & D Allergy (Severe, Verified 09/08/24 13:39) anaphylaxis bacitracin [BACITRACIN] Allergy (Severe, Verified 09/08/24 13:39) SEIZURE , anaphylaxis Sulfa (Sulfonamide Antibiotics) Allergy (Mild, Verified 09/08/24 13:39) SWELLING adhesive tape Allergy (Verified 09/08/24 13:39) Rash atenolol Allergy (Verified 09/08/24 13:39) Heart block AV second degree gabapentin Allergy (Verified 09/08/24 13:39) Hives, elevated BP, leg twitching dapagliflozin [From Farxiga] Adverse Reaction (Intermediate, Verified 09/08/24 13:39) Abdominal Pain dulaglutide [From Trulicity] Adverse Reaction (Intermediate, Verified 09/08/24 13:39) Diarrhea, vomiting lisinopril Adverse Reaction (Intermediate, Verified 09/08/24 13:39) Dizziness lamotrigine Adverse Reaction (Verified 09/08/24 13:39) elevated BP, dizziness sweating tirzepatide [From Mounjaro] Adverse Reaction (Verified 09/08/24 13:39) Constipation SSRI Adverse Reaction (Intermediate, Uncoded 08/27/24 18:11) DECREASE LIBIDO Medication List - Last Reconciled 09/08/24 by Guido Urbano MD blood sugar diagnostic ([employer] Ultra Test strips) test blood sugar once a day blood-glucose meter ([employer] Ultra2 Meter kit) As directed blood-glucose sensor ([employer]Dub[employer]ac[employer] G7 Sensor device) As directed CPAP (CPAP Machine/Device) auto PAP 6-20 cm with heated humidification with needed supplies diphenhydramine HCl (Benadryl) 50 mg (2 x 25 mg) PO Q6H PRN lancets ([employer] UltraSoft Lancets) TID lancets ([employer] Delica Lancets) test blood sugar daily lancing device with lancets ([employer] Delica Lancing Device kit) testing blood sugar once daily losartan 50 mg PO DAILY metformin ER 1,500 mg PO DAILY Mounjaro (tirzepatide) 2.5 mg (0.5 mL) subcut QWEEK NS simvastatin 40 mg PO DAILY warfarin 7.5 mg PO DAILY HPI Comments Details: 54-year-old man with a history of obesity and obstructive sleep apnea referred for management of hypertension. He has had hypertension for almost 4 years. Previously was on atenolol. He developed bradycardia therefore atenolol was discontinued. He was subsequently placed on losartan 50 mg. He has had episodes of low blood pressure. He was treated with gabapentin and developed a rash which was discontinued. Subsequently replace with Lamictal and he reacted to this as well which caused significant weakness. He had mild hyponatremia 133. Blood pressure spiked to 220 mm Hg systolic he was in the hospital. After discontinuing the medication blood pressure stabilized. He is here for further evaluation. History of factor 5 laden deficiency. He is on Coumadin. History of obesity 09/08/2024 Here for follow-up. Underwent 24 hour ABP M. He has been experiencing some itching and a feeling of tongue swelling while on losartan. No cough. [facility] Medical History Heart block AV second degree Hypertension DM type 2 (diabetes mellitus, type 2) Factor 5 Leiden mutation, heterozygous Vitamin B 12 deficiency Dizziness Annual physical exam Skin abnormalities STD (male) Venous (peripheral) insufficiency Obesity Hyperlipidemia PVD (peripheral vascular disease) DVT (deep venous thrombosis) SOB (shortness of breath) Surgical History Hx of esophagogastroduodenoscopy Hx of colonoscopy H/O vascular surgery Family History Father CVD (cardiovascular disease) Mother CVD (cardiovascular disease) Daughter No problems noted. Son No problems noted. Social History Household Members: Spouse and Significant Other Housing: House Are you a primary home care administrator to a significant other at home: No Do you presently have visiting nurse or other home services: No Unable to assess alcohol history related to: Unknown Patient Tobacco Use Status: Former Tobacco user Tobacco use type: Cigarette e-Cigarette/Vaping Use: Never Used Second Hand Smoke Exposure: No (none) service: No Current occupational status: employed Cognitive needs: No Hearing needs: No Vision needs: No Physical Exam Vital Signs: Last Vital Signs Pulse 89 09/08/24 13:36 BP 134/78 09/08/24 13:36 Pulse Ox 95 09/08/24 13:36 Oxygen Delivery Method Room Air 09/08/24 13:36 BMI result Body Mass Index 42.1 Comfortable Neck supple no JVD. Lungs entry equal no rales. Heart S1-S2 heard no gallop or rub. Abdomen soft nontender. Neuro alert awake oriented. No asterixis. Extremities no edema. Office Procedures 24 B/P Monitor Interpretation Details: Daytime average blood pressure 1 20-86 Nighttime average blood pressure 111/75. 24 hour average blood pressure was 119/83. All the readings were reviewed and they were episodes of low blood pressure the lowest reading was 97 over 87 mm Hg. Overall blood pressure is well controlled. He has nocturnal dipping. There could be a component of white coat effect. CPT: 61234 24 Hour Blood Pressure Monitor Reading Procedure code (CPT) selection complete Results Reviewed Nephrology Results: Hgb 15.6 g/dl (14.0-18.0) 08/27/24 WBC 9.3 X10*3/uL (4.8-10.8) 08/27/24 Plt Count 223 X10*3/uL (160-400) 08/27/24 Sodium 137 mmol/L (135-145) 08/27/24 Potassium 4.5 mmol/L (3.3-5.1) 08/27/24 Chloride 104 mmol/L (96-108) 08/27/24 Carbon Dioxide 26 mmol/L (22-29) 08/27/24 BUN 16 mg/dL (9-16) 08/27/24 Creatinine 0.83 mg/dL (0.5-1.4) 08/27/24 Calcium 9.9 mg/dL (8.4-10.2) 08/27/24 Assessment & Plan Assessment & Plan (1) Hypertension: Comment: Could not tolerate lisinopril causes dizziness, atenolol caused second-degree AV Code(s): I10 - Essential (primary) hypertension Category: Medical Qualifiers: Hypertension type: primary hypertension Qualified Code(s): I10 - Essential (primary) hypertension Plan 53-year-old man with obesity and obstructive sleep apnea with hypertension. Blood pressure well controlled at this time. He has had episodes of hypertension as well as blood pressure spikes. Encouraged stay on low-sodium diet continue to use CPAP regularly. 24 hour ABP M revealed well-controlled hypertension with nocturnal dipping. He had few episodes of low readings. Therefore I would lower his antihypertensive medication. Since he has had some sensation of tongue swelling with losartan I will discontinue losartan. Replace with amlodipine 2.5 mg. He is on simvastatin therefore I will keep her on a low dose of amlodipine. Orders: Orders AMB 24 HR B/P Monitor INTERPRETATION Today I10 - Essential (primary) hypertension Medications: New amlodipine 2.5 mg PO DAILY 30 tabs 1RF Discontinued losartan Discontinued Reason: Doctor's Order 50 mg PO DAILY 90 tabs 1RF Coding Level of Care Code Est Pt Level 4 (84214) Diagnoses Primary hypertension I10 Hypertension type: primary hypertension CPT Codes - CPT: 64228 24 Hour Blood Pressure Monitor Reading ([id number])
[2024-09-08 13:36] VITALS: BP 134/78; PULSE 89; O2SAT 95; BMI 42.1
--- OUTSIDE RECORDS SUMMARY | 2024-09-08 14:51 | XMS_ITS | Continuity of Care Document ---
Author Organization [facility] Address [address] [place] [id number] Phone Care Team Providers Care Machine Candle Molder Name Role Phone David Haddad MD, FACS [...] VISIT, [facility], [address] [facility] [address], [place], [id number], [place] tel: [phone] [place] 3 Varicose Veins With Inflammation Sep-0 6 3 Wixon Dann er. [address] [facility], [address], [id number] , [place]. tel: [phone] Referring Provider: David Covarrubias, [facility] [address], [place], [address]. tel:[phone] [facility], [address] [place] [address], [place], [id number], [place] tel: [phone] [facility] Varicose Veins With InflammationVen ous insufficiency, ChronicSwelling of limbPostphlebet ic syndrome with inflammation Sep-0 4 3 Viviane Rodriguez. [address] [facility], [place] [address] [place] [address], [id number] . tel: [phone] OFFICE/OUTPA TIENT VISIT, [facility], [facility] [address], [place], [id number], [place] tel: [phone] [place] 3 Varicose Veins With Inflammation Jan- 3 Geexon Dann er. [address] [facility], [facility] [address], [place], [id number] , [place]. tel: [phone] Referring Provider: David Covarrubias, [facility] [address], [address]. tel:[phone] [facility], [address] [place], [place] [address], [place], [id number], [place] tel:[phone] Procedure No Information 3 Catie Quigley er. [address], [id number] , . tel: [phone] Referring Provider: David Covarrubias, [address] [place] [address], [id number]. tel:[phone] OFFICE/OUTPA TIENT VISIT, [facility], [address] [place] [address], [id number], tel: [phone] [place] 3 Varicose Veins With Inflammation Nov- 2- 3 Wixtatum Quigley er. [address] [place] [address], [id number] , [place]. tel: [phone] Referring Provider: David Covarrubias, [address] [place] [address], [id number]. tel:[phone] OFFICE/OUTPA TIENT VISIT, [facility], [address] [place] [address], [id number], tel: [phone] [place] 3 Postphlebetic syndrome with inflammation Nov-0 3 Catie Quigley er. [address] [place] [address], [id number] , [place]. tel: [phone] Referring Provider: Hemal Mrianda, [facility] [address] [place] [address], [address]. tel:[phone] [facility], [address] [place] [address], [id number], tel: [phone] [facility] No Information 0 3 Catie Quigley er. [address] [place] [address], [id number] , [place]. tel: [phone] Family History Family Member Type Diagnosis Age At Onset Family Hx of Problem (finding) Obesity Family Hx of Problem (finding) Varicose Veins Family Hx of Problem (finding) DVT Family Hx of Problem (finding) Diabetes mellitus Family Hx of Problem (finding) hypertension Payers Payer name Insurance type Covered alliance party ID Authorlamonta donnieon(s) [employer] PPO Medicare Plan CI [id number] Social History Type Description Quantity Date Captured [...]
--- OUTSIDE RECORDS SUMMARY | 2024-09-08 14:51 | XMS_ITS | Clinical Summary ---
Author Organization [employer] Address [address] [place] [address] Care Team Providers Care Inspector Repairer Sandstone Name Role Phone Unavailable Primary Care Provider Unavailabl e Allergies No known active allergies Medications warfarin (Coumadin) 7.5 MG tablet Take by mouth. Take as directed per After Visit Summary. Active metFORMIN, OSM, (Fortamet) 1000 MG 24 hr tablet Take 1,500 mg by mouth with evening meal. Do not crush, chew, or split. Active atenolol (Tenormin) 25 MG tablet Take by mouth Once per day. Active simvastatin (Zocor) 40 MG tablet Take 40 mg by mouth at bedtime. Active Tirzepatide (Mounjaro) 5 MG/0.5ML solution pen-injector Inject under the skin. Active Active Problems No known active problems Social History Tobacco Use Types Packs/Day Years Used Date Smoking Tobacco: Never Smokeless Tobacco: Never Tobacco Cessation:Counseling Given: Not Answered Sex and Gender Information Value Date Recorded Sex Assigned at Male 06/05/2022 10:21 AM EDT Legal Sex Male 10:21 AM EDT Gender Identity Male 06/05/2022 10:21 AM EDT Sexual Orientation Straight 06/05/2022 10 :21 AM EDT Plan of Treatment Health Maintenance Due Date Last Done Comments CT Colonography 1971 Colonoscopy 1971 Colorectal Cancer Screening 1971 Dental Prophylaxis 1971 Dental X-Ray: Bitewings 1971 Depression Screening 1971 FIT DNA/Cologuard 1971 FIT 1971 FOBT 1971 HIV Screening 1971 Lipid Panel 1971 SDOH Screening 1971 Sigmoidoscopy 1971 Alcohol/Substance Use Screening 1983 Hepatitis C Screening 1989 Hepatitis B Vaccines (1 of 3 - 19+ 3-dose series) 1990 Dental Oral Exam 01/01/2020 07/02/2019 Pneumococcal Vaccine: 50+ Years (2 of 2 - PCV) 2021 02/24/2016 Zoster Vaccines (1 of 2) 2021 Dental X-Ray: Full Mouth 07/03/2022 07/02/2019 DTaP/Tdap/Td Vaccines (3 - Td or Tdap) 08/15/2023 08/15/2013, 08/23/2012, 05/06/2010 COVID-19 Vaccine ( season) 2024 05/20/2023, 07/09/2022, 04/25/2022, Additional history exists Influenza Vaccine (#1) 2024 3, 04/25/2022, 06/28/2021, Additional history exists Tobacco Screening 02/21/2025 02/22/2024 RSV Patients and Patients Aged 60 years or older (1 - 1-dose 75+ series) 2046 Pneumococcal Vaccine: Pediatrics (0 to 5 Years) and At-Risk Patients (6 to 49) Years) Aged Out 02/24/2016 No longer eligible based on patient's age to complete this topic HIB Vaccines Aged Out No longer eligi ble based on patient's age to complete this topic HPV Vaccines Aged Out No longer eligi ble based on patient's age to complete this topic Hepatitis A Vaccines Aged Out No long er eligible based on patient's age to complete this topic IPV Vaccines Aged Out No longer eligi ble based on patient's age to complete this topic Meningococcal Vaccine Aged Out No jarred tristan eligible based on patient's age to complete this topic RSV under 20 months Aged Out No longe r eligible based on patient's age to complete this topic Rotavirus Vaccines Aged Out No longer eligible based on patient's age to complete this topic Procedures Procedure Name Priority Date/Time Associated Diagnosis Comments PANORAMIC RADIOGRAPHIC IMAGE Routine 07/02/2019 12:00 AM EST COMPREHENSIVE ORAL EVALUATION - NEW OR ESTABLISHED PATIENT Routine 07/02/2019 12:00 AM EST from Last 3 Months or Most Recently Relevant to Health Maintenance Insurance [address] [place] [id number] MEDICARE [facility] [address] [place] [address] D[facility]AL-[facility] MEDICAID STAND ADULT [address] [place] [id number] [address] [place] [id number] [address] [facility] [place] [id number]
--- OUTSIDE RECORDS SUMMARY | 2024-09-08 14:51 | XMS_ITS | Data Portability ---
Author Organization [facility] [facility] [address] Address [address] [place] [address] Assessment No assessment recorded. Plan of Treatment Reminders Order Date Submit Date Provider Last Modified By Organization Details Last Modified Time Details Appointments None recorde d. Lab glucose , fingers tick, blood 023 09/01/19jenz3 [facility] [address], [address] [place], [address], 13:59:19 Referral None recorde d. Procedures None recorde d. Surgeries None recorde d. Imaging None recorde d. Medication Orders None recorde d. Patient TargetsNo targets recorded. Patient Instructions Encounter Date Encounter Id Patient Instructions Last Modified By Organization Details Last Modified Time 09/01/2022 [id number] Health Education and Guidance [email or web address] Not available 09/01/2022 13:59:19 This physical does not replace the annual physical to be performed by your PCP. There may be additional screening tests that they will perform that we do not in the urgent care setting. Failure to follow up as recommended may result in significant adverse health consequences. ? If your symptoms worsen or you develop new symptoms that concern you, go to the emergency department for further evaluation. [email or web address] Not available 09/01/2022 13:52:23 Reason for Referral None Reported. Results Created Date Observation Date Name Description Value Unit Range Abnormal Flag Note LastModifiedBy Organization Detail LastModifiedTime 09/01/1909/01/2022 gluco se, finge rstic k, blood blood sugar - non fasting 127 mg/dL 80-140 = normal Not Available [address] [place], [address], 09/01/2022 13:24:27 09/01/19 23 09/01/2022 gluco se, jime rstic k, blood blood sugar - fasting mg/dL 80-125 = normal Not Available [facility] [place], [address], 09/01/2022 13:24:27 Result Notes None recorded. Problems No Known Problems Procedures Surgical History Date Name Laterality Status Provider Name and Address Organization Details Recorded Time OC-UDS Rapid 5 or 10 panel Template completed LAURA SALGADO - [facility] 09/01/2022 13:32:21 Imaging Results None recorded. Procedure Notes None recorded. Medical Equipment None Reported. Medications Name Sig Start Date Stop Date Status Note LastModified by Organization Details LastModified Time metformin active Not Available Not Priscilla ilable Not Available Farxiga active Not Available Not Avail able Not Available Vitals None Recorded Social History None recorded. Functional Status None recorded. Mental Status None recorded. Family History Nothing Reported. Medical History No medical history recorded. Past Encounters Encounter ID Performer Location Encounter Start Date Encounter Closed Date Diagnosis/Indication Diagnosis SNOMED-CT Code Diagnosis ICD10 Code Diagnosis Note [id number] [address] [place] [address] 12/29/2021 16:21:44 12/29/2021 16:55:03 [id number] [place] [id number] [facility] [address] [place] [address] 09/01/2022 11:38:27 09/01/2022 14:06:01 History and physical examination, pre-employment 922165131 Z02.1 Diabetes m ellitus screening 416873774 Z13.1 Health Concerns Section Related Observation LastModified by Organization Detai ls LastModified Time None Recorded Concern Status LastModified by Organization Details LastModified Time None Recorded Advance Directives Directive None Recorded Payers Encounter Date Sequence Insurance Name Policy Number Policy Duggan Covered Member ID Duggan Member ID Guarantor Name 09/01/2022 OC-ESCREEN Jameel Gallardo [employer] Jameel Gallardo
--- OUTSIDE RECORDS SUMMARY | 2024-09-08 14:51 | XMS_ITS | Clinical Summary ---
Author Organization [facility] Address [address] [place] [address] Care Team Providers Care Top Stitcher Name Role Phone Esha Corbin MD Primary Care Provider [phone] Allergies Active Allergy Reactions Criticality Noted Date Comments Bacitracin Anaphylaxis High 08/01/2024 Gabapentin Rash/Dermatitis Low 08/01/2024 Medications No known medications Encounters Date Type Department Care Team Description 08/02/2024 10:50 AM EST - 08/02/2024 2:36 PM EST Emergency [facility] Emergency Department [address] [place], [place] [address] Roverto Henry DO Near syncope (Primary Dx); Muscle twitching Discharge Disposition: Home or Self Care 08/01/2024 7:52 PM EST - 08/02/2024 12:04 AM [facility] Emergency Department [address] [place] [phone] Wily Manning DO Near syncope (Primary Dx) Discharge Disposition: Home or Self Care 08/01/2024 Travel from Last 3 Months Social History Tobacco Use Types Packs/Day Years Used Date Smoking Tobacco: Never Assessed Sex and Gender Information Value Date Recorded Sex Assigned at Male 08/01/2024 8:08 PM EST Gender Identity Male 08/01/2024 8:08 PM EST Sexual Orientation Heterosexual (straight) 08/01 8:08 PM EST Last Filed Vital Signs Vital Sign Reading Time Taken Comments Blood Pressure 110/55 08/02/2024 2:01 PM EST Pulse 69 08/02/2024 2:01 PM EST Temperature 36.6 ??C (97.9 ??F) 08/02/2024 9:28 AM ES T Respiratory Rate 18 08/02/2024 2:01 PM EST Oxygen Saturation 99% 08/02/2024 2:01 PM EST Inhaled Oxygen Concentration - - Weight 130 kg (287 lb 0.6 oz) 08/02/2024 9:28 AM EST Height - - Body Mass Index - - Plan of Treatment Health Maintenance Due Date Last Done Comments Hepatitis C Virus Screening 1971 DTaP/Tdap/Td Vaccines (1 - Tdap) 1990 Hepatitis B Vaccines (1 of 3 - 19+ 3-dose series) 1990 Colonoscopy 2016 Pneumococcal Vaccines 50+ (1 of 1 - PCV) 2021 Zoster (Shingles) Vaccine (1 of 2) 2021 COVID-19 Vaccine ( - 2023-2 5 season) 2024 HIV Screening Completed 08/01/2024 Influenza Vaccine Completed 08/03/2024 Pneumococcal Vaccine: Pediat collins (0-5 Years) and At-Risk Patients (6 to 49 Years) Aged Out No longer eligible b ased on patient's age to complete this topic Procedures Procedure Name Priority Date/Time Associated Diagnosis Comments MAGNESIUM STAT 08/02/2024 11:49 AM EST COMPREHENSIVE METABOLIC PANEL STAT 08/02/2024 11:49 AM EST COMPLETE BLOOD COUNT, WITH DIFFERENTIAL STAT 08/02/2024 11:49 AM EST ECG 12-LEAD Routine 08/02/2024 11:02 AM EST HIV 1/2 AG/AB CMIA REFLEX TO CONFIRMATION STAT 08/01/2024 9:39 PM EST HIGH SENSITIVITY D-DIMER Routine 08/01/2024 9:39 PM EST HIGH SENSITIVITY TROPONIN T CARD 08/01/2024 9:39 PM EST PROBNP, N-TERMINAL Routine 08/01/2024 9: [address] HEAD W/O CONTRAST STAT 08/01/2024 9:09 PM EST XR CHEST 2 VIEWS STAT 08/01/2024 8:48 PM EST COMPREHENSIVE METABOLIC PANEL STAT 08/01/2024 8:33 PM EST COMPLETE BLOOD COUNT, WITH DIFFERENTIAL STAT 08/01/2024 8:33 PM EST ECG 12-LEAD STAT 08/01/2024 8:24 PM EST from Last 3 Months Results * (ABNORMAL) Complete Blood Count, with Differential (08/02/2024 11:49 AM EST) Only the most recent of2 resultswithin the time period is included. White Blood Cell Count 7.4 4.0 - 11.0 Thou/uL 08/02/2024 12:[address] [facility] Platelet Count 221 150 - 450 Thou/uL 08/02/2024 12:[address] [facility] Hemoglobin 14.9 13.0 - 17.7 g/dL 08/02/2024 12:[address] [facility] Hematocrit 45.0 39.0 - 54.0 % 08/02/2024 12:[address] [facility] Red Blood Cell Count 4.87 4.50 - 6.20 Mil/uL 08/02/2024 12:[address] [facility] MCV 92 80 - 100 fL 08/02/2024 12:[address] [facility] MCH 30.6 27.0 - 31.0 pg 08/02/2024 12:[address] [facility] MCHC 33.1 30.0 - 36.0 g/dL 08/02/2024 12:[address] [facility] RDW 12.8 11.5 - 14.5 % 08/02/2024 12:[address] [facility] MPV 9.3 7.5 - 12.5 fL 08/02/2024 12:[address] [facility] Neutrophils Auto 72.8 % 08/02/20 12:[address] [facility] Immature Granulocytes 0.4 % 08/02/2024 12:[address] [facility] Lymphocytes Auto 18.9 % 08/02/20 12:[address] [facility] Monocytes Auto 6.1 % 08/02/2024 12:17 PM [facility] Eosinophils Auto 1.1 % 08/02/20 12:17 PM [facility] Basophils Auto 0.7 % 08/02/2024 12:[address] [facility] Abs Neutrophils Auto 5.37 2.00 - 7.50 Thou/uL 08/02/2024 12:[address] [facility] Abs Immature Granulocytes 0.03 0.00 - 0.10 Thou/uL 08/02/2024 12:[address] [facility] Abs Lymphocytes Auto 1.39(L) 1.50 - 4.50 Thou/uL 08/02/2024 12:[address] [facility] Abs Monocytes Auto 0.45 0.20 - 1.50 Thou/uL 08/02/2024 12:[address] [facility] Abs Eosinophils Auto 0.08 0.00 - 0.70 Thou/uL 08/02/2024 12:[address] [facility] Abs Basophils Auto 0.05 0.00 - 0.20 Thou/uL 08/02/2024 12:[address] [facility] Blood Blood specimen / Unknown 08/02/2024 11:49 AM EST 08/02/2024 12:09 PM EST Roverto Buffalo DO LAB BLOOD ORDERABLES Performing Organization Address City/[facility]/ZIP Co de Phone Number [facility] [address] [place] [address], [place] [address] * Magnesium (08/02/2024 11:49 AM EST) Magnesium 2.0 1.6 - 2.7 mg/dL 08/02/2024 12:[address] [facility] Blood (Plasma/Serum) 08/02/2024 11:49 AM EST 08/02/2024 12:10 PM EST Roverto Henry DO LAB BLOOD ORDERABLES [facility] [address] [place] [address], [facility] [address] [place] [address] * (ABNORMAL) Comprehensive Metabolic Panel (08/02/2024 11:49 AM EST) Only the most recent of2 resultswithin the time period is included. Glucose 181(H) 65 - 99 mg/dL 08/02/2024 12:[address] [facility] Comment:Fasting: <100 mg/dL, Non-Fasting: <200 mg/dL (ADA 2005) Blood Urea Nitrogen (BUN) 14 8 - 21 mg/dL 08/02/2024 12:[address] [facility] Creatinine 0.7 0.5 - 1.3 mg/dL 08/02/2024 12:[address] [facility] eGFR >90 >59 08/02/2024 12:[address] [facility] Comment:CKD-EPI (2020) in mL /min/1.73 sq meters. Sodium 134(L) 136 - 145 mmol/L 08/02/2024 12:[address] [facility] Potassium 4.6 3.4 - 5.3 mmol/L 08/02/2024 12:[address] [facility] Chloride 100 98 - 107 mmol/L 08/02/2024 12:[address] [facility] CO2 24 22 - 33 mmol/L 08/02/2024 12:[address] [facility] Calcium 9.7 8.7 - 10.5 mg/dL 08/02/2024 12:[address] [facility] Alkaline Phosphatase 56 45 - 128 U/L 08/02/2024 12:[address] [facility] Aspartate Aminotrans (AST) 37 10 - 55 U/L 08/02/2024 12:[address] [facility] Alanine Aminotrans (ALT) 24 10 - 55 U/L 08/02/2024 12:[address] [facility] Bilirubin, Total 0.6 0.2 - 1.0 mg/dL 08/02/2024 12:[address] [facility] Protein, Total 7.5 6.3 - 8.3 g/dL 08/02/2024 12:[address] [facility] Albumin 4.1 3.5 - 5.0 g/dL 08/02/2024 12:[address] [facility] BUN/Creatinine Ratio 20 10.0 - 25.0 Ratio 08/02/2024 12:[address] [facility] Globulin 3.4 1.5 - 3.9 g/dL 08/02/2024 12:[address] [facility] Albumin/Globulin Ratio 1.2 Ratio 08/02/2024 12:39 PM EST [facility] Anion Gap 10 7 - 17 08/02/2024 12:39 PM EST [facility] Blood (Plasma/Serum) 08/02/2024 11:49 AM EST 08/02/2024 12:10 PM EST Roverto Henry DO LAB BLOOD ORDERABLES [facility] [address] [place] [address], [facility] [address] [place] [address] * ECG 12 lead (08/02/2024 11:02 AM EST) Only the most recent of2 resultswithin the time period is included. Ventricular rate 69 BPM EKG [facility] Atrial rate 69 BPM EKG [facility] P-R interval 266 ms EKG [facility] QRS duration 72 ms EKG [facility] Q-T interval 382 ms EKG [facility] QTC calculation (Bazett) 409 ms EKG [facility] P axis 46 degrees EKG [facility] R axis -7 degrees EKG [facility] T axis 17 degrees EKG [facility] 08/02/2024 11:0 2 AM EST Narrative EKG [facility] - 08/02/2024 1:37 PM EST Sinus rhythm with 1st degree A-V block Otherwise normal ECG When compared with ECG of 01-Aug-2024 20:24, (unconfirmed) No significant change was found Confirmed by MD Sandoval Katharine ([id number]) on 08/02/2024 1:37:41 PM Procedure Note Karen Sandoval MD - 08/03/2024 Sinus rhythm with 1st degree A-V block Otherwise normal ECG When compared with ECG of 01-Aug-2024 20:24, (unconfirmed) No significant change was found Confirmed by MD Sandoval Katharine ([id number]) on 08/02/2024 1:37:41 PM Wily Manning DO ECG ORDERABLES EKG [facility] * Troponin T, High Sensitivity (08/01/2024 9:39 PM EST) [facility] High Sensitivity Troponin T <6 <23 ng/L 08/01/2024 10:09 PM EST [facility] Delta (Change) NO PREVIOUS RESULT <3 08/01/2024 10:09 PM EST [facility] Blood (Plasma/Serum) 08/01/2024 9:39 PM EST 08/01/2024 9:46 PM EST Wily Manning DO LAB BLOOD ORDERABLES Performing Organization Address [facility]/ZIP Co de Phone Number [facility] [address] [place] [address], [place] [address] * proBNP, N-terminal (08/01/2024 9:39 PM EST) [facility] proBNP, N-terminal <36 <125 pg/mL 08/01/2024 10:09 PM EST [facility] Blood Plasma specimen / Unknown 08/01/2024 9:39 PM EST 08/01/2024 9:46 PM EST Wily Manning DO LAB BLOOD ORDERABLES Performing Organization Address [facility] Co de Phone Number [facility] [address] [place] [address], [place] [address] * HIV 1/2 Ag/Ab CMIA Reflex to Confirmation (08/01/2024 9:39 PM EST) [facility] HIV 1/2 Ag/Ab CMIA Nonreactive Nonreactive 08/04/2024 11:01 AM EST [facility] Comment: Results show no evidence of infection by HIV 1/2. If clinically indicated, repeat CMIA or test by nucleic acid amplification. HIV 1/2 Antigen/Antibody CMIA reflex to confirmation AND HIV-1 RNA viral load recommended in patients who are taking or have recently taken PrEP. Blood Serum specimen / Unknown 08/01/2024 9:39 PM EST 08/01/2024 9:46 PM EST Wily Manning DO LAB BLOOD ORDERABLES [facility] [address] [place] [address], * High Sensitiviry D-Dimer (all sites except [facility]) (08/01/2024 9:39 PM EST) [facility] High Sensitivity D-Dimer <150 <230 ng/mL DDU 08/01/2024 9:58 PM EST [facility] Comment: The threshold for exclusion of venous thromboembolism (VTE) is 230 ng/mL DDU (D Dimer Units). The Normal Range for D-Dimer is <244 ng/mL DDU (D Dimer Units). Studies, however, indicate a higher threshold is more appropriate for patients >50 y. This threshold is calculated by multiplying age by 5. Example: The estimated age adjusted VTE threshold for a 60 year old is 60 x 5 = 300 ng/mL DDU. Note: 1 DDU = 2 FEU (Fibrinogen Equivalent Units) Blood Plasma specimen / Unknown 08/01/2024 9:39 PM EST 08/01/2024 9:46 PM EST Wily Manning DO LAB BLOOD ORDERABLES Performing Organization Address City/[facility]/ZIP Co de Phone Number [facility] [address] [place] [address], [facility] [address] [place] [address] * CT Head w/o contrast (08/01/2024 9:09 PM EST) Anatomical Region Laterality Modality Head Computed Tomogra phy 08/01/2024 9:13 PM EST Impressions 08/01/2024 10:03 PM EST 1. ??No acute intracranial process identified. If clinical concern for underlying acute process persists, recommend dedicated MRI brain for further evaluation. 2. ??Left frontal temporal encephalomalacia, most consistent with sequela of prior insults. 3. ??Mild diffuse cerebral parenchymal atrophy with likely sequela of chronic microvascular ischemic changes. 4. ??Additional findings as above. Narrative 08/01/2024 10:03 PM EST EXAM: CT HEAD W/O CONTRAST on 08/01/2024 8:30 PM CLINICAL HISTORY: presyncopal blurred vision. COMPARISONS: None available. TECHNIQUE: Multiple non-contrast images were performed. ?? Note: Iterative reconstruction technique was employed to reduce patient radiation exposure. FINDINGS: No acute intracranial hemorrhage or extra-axial fluid collection identified. Left frontotemporal encephalomalacia, consistent with sequela of prior insults. No acute territorial infarction. No discrete mass, mass effect or midline shift. Scattered foci of low density within the subcortical and periventricular white matter are nonspecific and favored to represent sequela of chronic microvascular ischemic changes. The ventricles are symmetric and normal in caliber. The basal cisterns are patent. The midline structures appear grossly intact. Mild diffuse cerebral parenchymal atrophy is present. Atherosclerotic calcifications are present at the cavernous portion of the internal carotid arteries bilaterally. The partially visualized paranasal sinuses and mastoid air cells are grossly clear. The orbits are grossly unremarkable. No depressed calvarial fracture identified. Right posterior parietal extra calvarial subcutaneous stranding, nonspecific. No focal extracalvarial soft tissue swelling identified. Procedure Note Raad Black MD - 08/01/2024 EXAM: CT HEAD W/O CONTRAST on 08/01/2024 8:30 PM CLINICAL HISTORY: presyncopal blurred vision. COMPARISONS: None available. TECHNIQUE: Multiple non-contrast images were performed. Note: Iterative reconstruction technique was employed to reduce patientradiation exposure. FINDINGS: No acute intracranial hemorrhage or extra-axial fluid collectionidentified. Left frontotemporal encephalomalacia, consistent with sequelaof prior insults. No acute territorial infarction. No discrete mass, masseffect or midline shift. Scattered foci of low density within the subcortical and periventricular white matter arenonspecific and favored to represent sequela of chronic microvascularischemic changes. The ventricles are symmetric and normal in caliber. Thebasal cisterns are patent. The midline structures appear grossly intact. Mild diffuse cerebralparenchymal atrophy is present. Atherosclerotic calcifications are presentat the cavernous portion of the internal carotid arteries bilaterally. The partially visualized paranasal sinuses and mastoid air cells aregrossly clear. The orbits are grossly unremarkable. No depressed calvarial fracture identified. Right posterior parietal extracalvarial subcutaneous stranding, nonspecific. No focal extracalvarialsoft tissue swelling identified. IMPRESSION: 1. No acute intracranial process identified. If clinical concern forunderlying acute process persists, recommend dedicated MRI brain forfurther evaluation. 2. Left frontal temporal encephalomalacia, most consistent with sequelaof prior insults. 3. Mild diffuse cerebral parenchymal atrophy with likely sequela ofchronic microvascular ischemic changes. 4. Additional findings as above. Wily RAINES CT ORDERABLES * XR Chest 2 views (08/01/2024 8:48 PM EST) Anatomical Region Laterality Modality Chest Computed Radiogr aphy 08/01/2024 9:09 PM EST Impressions 08/01/2024 9:10 PM EST No acute cardiopulmonary findings. Narrative 08/01/2024 9:10 PM EST EXAM: XR CHEST 2 VIEWS on 08/01/2024 8:38 PM CLINICAL HISTORY: 54 years Male with provided history of near syncopal . COMPARISONS: None TECHNIQUE: 2 view(s) of the chest. FINDINGS: Normal cardiomediastinal silhouette. No consolidation, pleural effusion, or pneumothorax. No acute osseous abnormality. Procedure Note Binh Rosario MD - 08/01/2024 EXAM: XR CHEST 2 VIEWS on 08/01/2024 8:38 PM CLINICAL HISTORY: 54 years Male with provided history of near syncopal . COMPARISONS: None TECHNIQUE: 2 view(s) of the chest. FINDINGS: Normal cardiomediastinal silhouette. No consolidation, pleural effusion, or pneumothorax. No acute osseous abnormality. IMPRESSION: No acute cardiopulmonary findings. [facility] NG ORDERABLES from Last 3 Months Care Teams Top Stitcher Relationship Specialty Start Date End Date Esha Corbin MD [address] [facility] [place] [id number] PCP - General 08/01/24
== END 2024-09-08 14:17 | disposition home or self-care (01) ==
PROVIDERS: PCP Internal Medicine; Visit Provider Internal Medicine Hypertension Specialist
DX: I10 Essential (primary) hypertension (principal)
CPT/HCPCS: 93790; 99214

== ENCOUNTER → 2024-09-08 13:32 | Outpatient (BNVA) | payer MEDICARE, MEDICAID, SELFPAY | PROVIDERS: PCP Internal Medicine; Visit Provider Internal Medicine Hypertension Specialist | DX: I10 Essential (primary) hypertension (principal) | CPT/HCPCS: 99212 ==

== ENCOUNTER 2024-09-15 13:53 | Outpatient (AMB) | payer MEDICARE, MEDICAID, SELFPAY ==
--- NOTE | 2024-09-15 14:02 | HO.NEPHOV ---
Vital Signs 09/15/24 14:05 Height 5 ft 9 in Weight 283 lb 8 oz BMI 41.9 BP 130/80 Blood Pressure Location Lt brachial Position Sitting Pulse 84 Pulse Source Pulse Oximeter Pulse Oximetry (%) 98 Oxygen Delivery Method Room Air Intake Visit Reasons: Dr. Quach PT Med side effects Planner Internship Required: No Accompanied by: Spouse Allergies A & D Allergy (Severe, Verified 09/18/24 13:49) anaphylaxis bacitracin [BACITRACIN] Allergy (Severe, Verified 09/18/24 13:49) SEIZURE , anaphylaxis Sulfa (Sulfonamide Antibiotics) Allergy (Mild, Verified 09/18/24 13:49) SWELLING adhesive tape Allergy (Verified 09/18/24 13:49) Rash atenolol Allergy (Verified 09/18/24 13:49) Heart block AV second degree gabapentin Allergy (Verified 09/18/24 13:49) Hives, elevated BP, leg twitching dapagliflozin [From Farxiga] Adverse Reaction (Intermediate, Verified 09/18/24 13:49) Abdominal Pain dulaglutide [From Trulicity] Adverse Reaction (Intermediate, Verified 09/18/24 13:49) Diarrhea, vomiting lisinopril Adverse Reaction (Intermediate, Verified 09/18/24 13:49) Dizziness lamotrigine Adverse Reaction (Verified 09/18/24 13:49) elevated BP, dizziness sweating tirzepatide [From Mounjaro] Adverse Reaction (Verified 09/18/24 13:49) Constipation losartan Allergy (Uncoded 09/18/24 13:50) feeling like he will pass out SSRI Adverse Reaction (Intermediate, Uncoded 09/18/24 13:49) DECREASE LIBIDO HPI Comments Details: 54-year-old man with obesity and obstructive sleep apnea who has been seen and followed by Dr Guido Urbano for management of hypertension which he had for almost 4 years. Previously was on atenolol but developed bradycardia therefore atenolol was discontinued. He was subsequently placed on losartan 50 mg and has had episodes of low blood pressure. He was on Lamictal and he claimed that he reacted to this as well with significant weakness, mild hyponatremia 133 & blood pressure going up to 220 mm Hg systolic. Apparently after discontinuing the medication blood pressure had stabilized. 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 He underwent 24 hour ABPM.He has been experiencing some itching and a feeling of tongue swelling while on losartan. He was recently started on Amlodipine on 09/08/24 but hes been feeling lightheaded & feels like fainting on and off . He feels blood pressure gets elevated if he goes for walks. He has been having dizzy feeling even when he is sitting as well as lying on the bed when he moves his head side to side. He is here for an urgent visit. He denied any chest pain, SOB, edema, PND, orthopnea, fever, nausea, vomiting, diarrhea. [facility] Medical History (Updated 09/22/24 @ 17:10 by Erick Julien MD) Heart block AV second degree Hypertension DM type 2 (diabetes mellitus, type 2) Factor 5 Leiden mutation, heterozygous Vitamin B 12 deficiency Dizziness Annual physical exam Skin abnormalities STD (male) Venous (peripheral) insufficiency Obesity Hyperlipidemia PVD (peripheral vascular disease) DVT (deep venous thrombosis) SOB (shortness of breath) Surgical History Hx of esophagogastroduodenoscopy Hx of colonoscopy H/O vascular surgery Family History Father CVD (cardiovascular disease) Mother CVD (cardiovascular disease) Daughter No problems noted. Son No problems noted. Social History Household Members: Spouse and Significant Other Housing: House Are you a primary patient care specialist to a significant other at home: No Do you presently have visiting nurse or other home services: No Unable to assess alcohol history related to: Unknown Patient Tobacco Use Status: Former Tobacco user Tobacco use type: Cigarette e-Cigarette/Vaping Use: Never Used Second Hand Smoke Exposure: No (none) service: No Current occupational status: employed Cognitive needs: No Hearing needs: No Vision needs: No Review of Systems Const All systems reviewed & are unremarkable except as noted in HPI and below Physical Exam Vital Signs: Last Vital Signs Pulse 84 09/15/24 14:05 BP 130/80 09/15/24 14:05 Pulse Ox 98 09/15/24 14:05 Oxygen Delivery Method Room Air 09/15/24 14:05 BMI result Body Mass Index 41.9 Const General: comfortable and no acute distress Orientation/consciousness: patient oriented x3 HEENT Head: Yes normocephalic Mouth: Normal oral and palatal mucosa present Eyes EOM: EOMs intact bilaterally Neck Neck: Yes supple Resp Auscultation: clear to auscultation bilaterally Cardio Jugular venous distension: no JVD Rate: regular rate GI Palpation (GI): Soft to palpation Auscultation: normal bowel sounds General: Yes no CVA tenderness Back/Spine/Pelvis Back: no CVA tenderness Skin General skin exam: no rashes or lesions noted Neuro General: patient oriented x3 and moves all extremities Extrem General: Yes no pedal edema Results Reviewed Nephrology Results: Hgb 15.6 g/dl (14.0-18.0) 08/27/24 WBC 9.3 X10*3/uL (4.8-10.8) 08/27/24 Plt Count 223 X10*3/uL (160-400) 08/27/24 Sodium 137 mmol/L (135-145) 08/27/24 Potassium 4.5 mmol/L (3.3-5.1) 08/27/24 Chloride 104 mmol/L (96-108) 08/27/24 Carbon Dioxide 26 mmol/L (22-29) 08/27/24 BUN 16 mg/dL (9-16) 08/27/24 Creatinine 0.83 mg/dL (0.5-1.4) 08/27/24 Calcium 9.9 mg/dL (8.4-10.2) 08/27/24 Assessment & Plan Assessment & Plan (1) Hypertension: Comment: Could not tolerate lisinopril causes dizziness, atenolol caused second-degree AV, losartan caused chest pain and itching, started on amlodipine 2.5 mg recently Code(s): I10 - Essential (primary) hypertension Category: Medical Qualifiers: Hypertension type: primary hypertension Qualified Code(s): I10 - Essential (primary) hypertension (2) Vertigo: Code(s): R42 - Dizziness and giddiness Category: Medical Plan 53-year-old man with obesity and obstructive sleep apnea with hypertension. Blood pressure well controlled at this time. He has been started on Amlodipine which has been started recently. He was encouraged stay on low-sodium diet continue to use CPAP regularly. He has had some sensation of tongue swelling with losartan and was discontinued. I encouraged him to continue on amlodipine 2.5 mg. Given he had dizziness, while sitting as well as lying down especially when he moves his head to side to side, I think he has vertigo and was prescribed Meclizine. He is going to follow up with Dr Urbano for his continued management of his hypertension. All questions answered. Medications: New meclizine 12.5 mg PO TID 2 weeks 40 tabs 0RF dizziness Coding Level of Care Code Est Pt Level 4 (16629) Diagnoses Primary hypertension I10 Hypertension type: primary hypertension Vertigo R42
[2024-09-15 14:05] VITALS: BP 130/80; PULSE 84; O2SAT 98; BMI 41.9
--- OUTSIDE RECORDS SUMMARY | 2024-09-15 15:03 | XMS_ITS | Clinical Summary ---
Author Organization [facility] Address [address] [place] [address] Care Team Providers Care General Superintendent Name Role Phone Esha Corbin MD Primary Care Provider [phone] Allergies Active Allergy Reactions Criticality Noted Date Comments Bacitracin Anaphylaxis High 08/01/2024 Gabapentin Rash/Dermatitis Low 08/01/2024 Medications No known medications Encounters Date Type Department Care Team Description 08/02/2024 10:50 AM EST - 08/02/2024 2:36 PM EST Emergency [facility] Emergency Department [address] [place], [place] [id number] Roverto Henry DO Near syncope (Primary Dx); Muscle twitching Discharge Disposition: Home or Self Care 08/01/2024 7:52 PM EST - 08/02/2024 12:04 AM [facility] Emergency Department [address] [place] [address] [phone] Wily Manning DO Near syncope (Primary Dx) [...] (1 of 3 - 19+ 3-dose series) 03/06 Colonoscopy 2016 Pneumococcal Vaccines 50+ (1 of 1 - PCV) 2021 Zoster (Shingles) Vaccine (1 of 2) 2021 COVID-19 Vaccine (1 - 2023- season) 2024 HIV Screening Completed 08/01/2024 Influenza Vaccine Completed 08/03/2024 Procedures Procedure Name Priority Date/Time Associated Diagnosis [...] Monocytes Auto 6.1 % 08/02/2024 12:[address] [facility] Eosinophils Auto 1.1 % 08/02/20 12:17 PM [facility] Basophils Auto 0.7 % 08/02/2024 12:17 [...] AM EST 08/02/2024 12:09 PM EST Roverto Henry DO LAB BLOOD ORDERABLES [facility] [address] [place] [address], [place] [address] * Magnesium (08/02/2024 11:49 AM EST) Magnesium 2.0 1.6 - 2.7 mg/dL 08/02/2024 12:39 PM EST [facility] Blood (Plasma/Serum) 08/02/2024 11:49 AM EST 08/02/2024 12:10 PM EST Roverto Henry DO LAB BLOOD ORDERABLES Performing Organization Address City/[facility]/ZIP Co de Phone Number [facility] [address] [place] [address], [place] [address] * (ABNORMAL) Comprehensive Metabolic Panel (08/02/2024 11:49 AM EST) Only the most recent of2 resultswithin the time period is included. Glucose 181(H) 65 - 99 mg/dL 08/02/2024 12:[address] [facility] Comment:Fasting: <100 mg/dL, Non-Fasting: <200 mg/dL (ADA 2004) Blood Urea Nitrogen (BUN) 14 8 - [...] 1.5 - 3.9 g/dL 08/02/2024 12:39 PM EST [facility] Albumin/Globulin Ratio 1.2 Ratio 08/02/2024 12:39 PM EST [facility] Anion Gap 10 7 - 17 08/02/2024 12:39 PM EST [facility] Blood (Plasma/Serum) 08/02/2024 11:49 AM EST 08/02/2024 12:10 PM EST Rovertokushal Henry DO LAB BLOOD ORDERABLES [facility] [address] [place] [address], [facility] [address] [place] [address] * ECG 12 lead (08/02/2024 11:02 AM EST) Only the most recent of2 resultswithin the time period is included. Ventricular rate 69 BPM EKG [facility] Atrial rate 69 BPM EKG [facility] P-R interval 266 ms EKG [facility] QRS duration 72 ms EKG [facility] Q-T interval 382 ms EKG [facility] QTC calculation (Bazett) 409 ms EKG [facility] P axis 46 degrees EKG [facility] R axis -7 degrees G [facility] T axis [facility] 08/02/2024 11:0 2 AM EST Narrative EKG [facility] - 08/02/2024 1:37 PM EST Sinus rhythm with 1st degree A-V block Otherwise normal ECG When compared with ECG of 01-Aug-2024 20:24, (unconfirmed) No significant change was found Confirmed by MD Sandoval Katharine ([id number]) on 08/02/2024 1:37:41 PM Procedure Note Karen Sandoval MD - 08/03/2024 Sinus rhythm with 1st degree A-V block Otherwise normal ECG When compared with ECG of 01-Aug-2024 20:24, (unconfirmed) No significant change was found Confirmed by MD Sandoval Katharine ([id number]) on 08/02/2024 1:37:41 PM Wily Manning DO ECG ORDERABLES EKG [facility] * Troponin T, High Sensitivity (08/01/2024 9:39 PM EST) High Sensitivity Troponin T <6 <23 ng/L 08/01/2024 10:09 PM EST [facility] Delta (Change) NO PREVIOUS RESULT <3 08/01/2024 10:09 PM EST [facility] Blood (Plasma/Serum) 08/01/2024 9:39 PM EST 08/01/2024 9:46 PM EST Wily Manning DO LAB BLOOD ORDERABLES Performing Organization Address City/[facility]/[place] [address], [place] [address] * proBNP, N-terminal (08/01/2024 9:39 PM EST) Pathologist [facility] proBNP, N-terminal <36 <125 pg/mL 08/01/2024 10:09 PM EST [facility] Blood Plasma specimen / Unknown 08/01/2024 9:39 PM EST 08/01/2024 9:46 PM EST Wily Manning DO LAB BLOOD ORDERABLES Performing Organization Address City/[facility]/ZIP Co de Phone Number [facility] [address] [place] [address], [place] [address] * HIV 1/2 Ag/Ab CMIA Reflex to Confirmation (08/01/2024 9:39 PM EST) Pathologist [facility] HIV 1/2 Ag/Ab CMIA Nonreactive Nonreactive 08/04/2024 11:01 AM EST [facility] Comment: Results show no evidence of infection by HIV 1/2. If clinically indicated, repeat CMIA or test by nucleic acid amplification. HIV 1/2 Antigen/Antibody CMIA reflex to confirmation AND HIV-1 RNA viral load recommended in patients who are taking or have recently taken PrEP. Blood Serum specimen / Unknown 08/01/2024 9:39 PM EST 08/01/2024 9:46 PM EST Wiyl Manning DO LAB BLOOD ORDERABLES [facility] [address] [place] [address], * High Sensitiviry D-Dimer (all sites except [facility]) (08/01/2024 9:39 PM EST) [facility] High Sensitivity D-Dimer <150 <230 ng/mL DDU 08/01/2024 9:58 PM EST [facility] Comment: The threshold for exclusion of venous [...] DO LAB BLOOD ORDERABLES Performing Organization Address City/[facility]/ZIP Co de Phone Number [facility] [address] [place] [address], [facility] [address] [place] [address] * CT Head w/o contrast (08/01/2024 9:09 [...] changes. 4. Additional findings as above. Wily KHAN CT ORDERABLES * XR Chest 2 views [...] abnormality. IMPRESSION: No acute cardiopulmonary findings. Wily Manning DO [facility] DIAGNOSTIC IMAGI NG ORDERABLES from Last 3 Months Care Teams General Superintendent Relationship Specialty Start Date End Date Esha Corbin MD [address] [facility] [place] [phone] PCP - General 08/01/24
--- OUTSIDE RECORDS SUMMARY | 2024-09-15 15:03 | XMS_ITS | Clinical Summary ---
Author Organization [employer] Address [address] [facility] 7t [place] [address] Care Team Providers Care Cook Apprentice Name Role Phone Unavailable Primary Care Provider [...] Insurance [id number] [place] [id number] [place] [place] [phone] [facility] [address] [place] [id number] [facility] STAND ADULT [address] [place] [id number] [address] [place] [id number] [facility] [place] [id number]
--- OUTSIDE RECORDS SUMMARY | 2024-09-15 15:03 | XMS_ITS | Continuity of Care Document ---
Author Organization [facility] Address [address] [place] [phone] Phone Care Team Providers Care Dog Or Animal Sitter Name Role Phone David Haddad MD, FACS [...] Providers Copied on Encounter OFFICE/OUTPA TIENT VISIT, [facility], [address] [facility] [address], [place], [id number], [place] tel: [phone] [place] 3 Varicose Veins With Inflammation Sep-0 6 3 Wixon Dann er. [address] [facility] [place], [address], [id number] , [place]. tel: [phone] Referring Provider: David Covarrubias, [facility] [address], [place], [address]. tel:[phone] [facility], [address] [place] [address], [place], [id number], [place] tel: [phone] [facility] Varicose Veins With InflammationVen ous insufficiency, ChronicSwelling of limbPostphlebet ic syndrome with inflammation Sep-0 4 3 Viviane Rodriguez. [address] [facility], Ivan [address] [place] [address], [id number] . tel: [phone] OFFICE/OUTPA TIENT VISIT, [facility], [facility] [address], [place], [id number], [place] tel: [phone] [place] 3 Varicose Veins With Inflammation Jan- 3 Geexon Dann er. [address] [facility] [place], [facility] [address], [place], [id number] , [place]. tel: [phone] Referring Provider: David Covarrubias, [facility] [address], [address]. tel:[phone] [facility], [address] [place], [place] [address], [place], [id number], [place] tel:[phone] Procedure No Information 3 Catie Quigley er. [address], [id number] , . tel: [phone] Referring Provider: David Covarrubias, [address] [place] [address], [address]. tel:[phone] OFFICE/OUTPA TIENT VISIT, [facility], [address] [place] [address], [id number], tel: [phone] [place] 3 Varicose Veins With Inflammation Nov- 2- 3 Wixtatum Quigley er. [address] [place] [address], [id number] , [place]. tel: [phone] Referring Provider: David Covarrubias, [address] [place] [address], [id number]. 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 [address] [place] [address], [id number] , [place]. tel: [phone] Referring Provider: Hemal Miranda, [facility] [address] [place] [address], [id number]. tel:[phone] [facility], [address] [place] [address], [id number], tel: [phone] [facility] No Information 0 3 Catie Quigley er. [address] [place] [address], [id number] , [place]. tel: [phone] Family History Family Member Type Diagnosis Age At Onset Family Hx of Problem (finding) Obesity Family Hx of Problem (finding) Varicose Veins Family Hx of Problem (finding) DVT Family Hx of Problem (finding) Diabetes mellitus Family Hx of Problem (finding) hypertension Payers Payer name Insurance type Covered libertarian ID Authorlamonta donnieon(s) [employer] Choice PPO Medicare Plan CI [id number] Social History Type Description Quantity Date Captured [...]
--- OUTSIDE RECORDS SUMMARY | 2024-09-15 15:03 | XMS_ITS | Continuity of Care Document ---
Author Organization [facility] Address [address] [facility] [address] [place] [address] Phone Care Team Providers Care Kalsominer Name Role Phone Karo Harp, Anitha SAN [...] Diagnoses Date Provider Providers Copied on Encounter [facility], [address] [place] [address], [id number] , tel:[phone] [facility] No Information 4 Karo Welsh. [address] [facility] [address], [place], [id number] , . tel:[phone] Referring Provider: Radha Martins MD C, [address], [address] . tel:[phone] Office outpt new 30 min [facility], [address] [facility] [address], [place], [id number] , tel:[phone] [facility] Bilateral Leg CVI & Lt. foot Venous Stasis Ulcer (chief complaint) Varicose veins with ulcerVaricose veins with other complicationsObesity Diabetes Mellitus Type 2, Uncomplicated 4 Karo Welsh. [address] [facility] [address], [place], [place], [id number] , [place]. tel:[phone] Referring Provider: Radha Martins MD C, [address] [facility] [address] [facility] [address], [place], [address] . tel:[phone] Family History Family Member Type Diagnosis Age At Onset No Information Payers Payer name Insurance type Covered democrat ID Authoriza tion(s) [employer] Hmo [place]CN [place] [id number] Social History Type Description Quantity Date Captured [...] LLE vein stripping (2003 in [place]) then Tx'ed by other surgeons in [place] up to last yr. Pt. has had significant Bilateral LLE below the knee dark brown discoloration (Lt. > Rt.) & Lt. LLE Ulcer in Lt. Medial Malleolar area being treated at present by [facility] Wound Care [facility]. (Dr. Carlos), but [...]
== END 2024-09-15 14:41 | disposition home or self-care (01) ==
PROVIDERS: PCP Internal Medicine; Visit Provider Internal Medicine Nephrology
DX: I10 Essential (primary) hypertension (principal); R42 Dizziness and giddiness
CPT/HCPCS: 99214

== ENCOUNTER → 2024-09-15 13:53 | Outpatient (BNVA) | payer MEDICARE, MEDICAID, SELFPAY | PROVIDERS: PCP Internal Medicine; Visit Provider Internal Medicine Nephrology | DX: I10 Essential (primary) hypertension (principal); R42 Dizziness and giddiness | CPT/HCPCS: 99212 ==

== ENCOUNTER 2024-09-18 13:17 | Outpatient (AMB) | payer MEDICARE, MEDICAID, SELFPAY ==
--- OUTSIDE RECORDS SUMMARY | 2024-09-18 13:26 | XMS_ITS | Continuity of Care Document ---
Author Organization [facility] Address [address] [facility] [address] [place] [address] Phone Care Team Providers Care Steam Pipe Fitter Name Role Phone Karo Harp, Anitha SAN [...] Diagnoses Date Provider Providers Copied on Encounter [facility], [address] [place] [address], [id number] , tel:[phone] [facility] No Information 4 Karo Welsh. [address] [facility] [address], [place], [id number] , . tel:[phone] Referring Provider: Radha Martins MD C, [address], [address] . tel:[phone] Office outpt new 30 min [facility], [address] [facility] [address], [place], [id number] , tel:[phone] [facility] Bilateral Leg CVI & Lt. foot Venous Stasis Ulcer (chief complaint) Varicose veins with ulcerVaricose veins with other complicationsObesity Diabetes Mellitus Type 2, Uncomplicated 4 Karo Welsh. [address] [facility], [place], [place], [id number] , [place]. tel:[phone] Referring Provider: Radha Martins MD C, [address] [facility] [address], [place], [address] . tel:[phone] Family History Family Member Type Diagnosis Age At Onset No Information Payers Payer name Insurance type Covered green party ID Authoriza tion(s) [employer] Hmo [place] [id number] Social History Type Description Quantity Date Captured [...] LLE vein stripping (2003 in state of [place]) then Tx'ed by other surgeons in [place] up to last yr. Pt. has had significant Bilateral LLE below the knee dark brown discoloration (Lt. > Rt.) & Lt. LLE Ulcer in Lt. Medial Malleolar area being treated at present by [facility] Wound Care Dept. (Dr. Carlos), but [...]
--- OUTSIDE RECORDS SUMMARY | 2024-09-18 13:26 | XMS_ITS | Continuity of Care Document ---
Author Organization [facility] Address [address] [place] [id number] Phone Care Team Providers Care Iron Worker Name Role Phone David Haddad MD, FACS [...] Providers Copied on Encounter OFFICE/OUTPA TIENT VISIT, [facility], [address] [facility] [address], [place], [id number], [place] tel: [phone] Center 3 Varicose Veins With Inflammation Sep-0 6 3 Wixon Dann er. [address] [facility], [address], [id number] , [place]. tel: [phone] Referring Provider: David Covarrubias, [facility] [address], [place], [address]. tel:[phone] [facility], [address] [place] [address] [address], [place], [id number], [place] tel: [phone] [facility] Varicose Veins With InflammationVen ous insufficiency, ChronicSwelling of limbPostphlebet ic syndrome with inflammation Sep-0 4 3 Viviane Rodriguez. 4750 [facility], Ivan [address] [place] [address], [id number] . tel: [phone] OFFICE/OUTPA TIENT VISIT, [facility], [facility] [address], [place], [id number], [place] tel: [phone] Center 3 Varicose Veins With Inflammation Jan- 3 Geexon Dann er. [address] [facility], [facility] [address], [place], [id number] , [place]. tel: [phone] Referring Provider: David Covarrubias, [facility] [address], [address]. tel:[phone] [facility], [address] [place], [place] [address] [address], [place], [id number], [place] tel:[phone] Procedure No Information 3 Catie Quigley er. [address], [id number] , . tel: [phone] Referring Provider: David Covarrubias, [address] [place] [address], [address]. tel:[phone] OFFICE/OUTPA TIENT VISIT, [facility], [address] [place] [address], [id number], tel: [phone] Center 3 Varicose Veins With Inflammation Nov- 2- 3 Wixtatum Quigley er. [address] [place] [address], [id number] , [place]. tel: [phone] Referring Provider: David Covarrubias, [address] [place] [address], [id number]. 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 [address] [place] [address], [id number] , [place]. tel: [phone] Referring Provider: Hemal Miranda, [facility] [address] [place] [address], [id number]. tel:[phone] [facility], [address] [place] [address], [id number], tel: [phone] [facility] No Information 0 3 Catie Quigley er. [address] [place] [address], [id number] , [place]. tel: [phone] Family History Family Member Type Diagnosis Age At Onset Family Hx of Problem (finding) Obesity Family Hx of Problem (finding) Varicose Veins Family Hx of Problem (finding) DVT Family Hx of Problem (finding) Diabetes mellitus Family Hx of Problem (finding) hypertension Payers Payer name Insurance type Covered democrat ID Authorlamonta donnieon(s) [employer] Choice PPO Medicare Plan CI [id number] Social History Type Description Quantity Date Captured [...]
--- OUTSIDE RECORDS SUMMARY | 2024-09-18 13:26 | XMS_ITS | Clinical Summary ---
Author Organization [employer] Address [address] [facility] 7t [place] [address] Care Team Providers Care Computer Analyst Name Role Phone Unavailable Primary Care Provider [...] Insurance [address] [place] [address] [place] [phone] [facility] [address] [place] [address] [facility] STAND ADULT [address] [place] [id number] [address] [place] [id number] [address] [facility] [place] [id number]
--- OUTSIDE RECORDS SUMMARY | 2024-09-18 13:26 | XMS_ITS | Data Portability ---
Author Organization [facility], [facility] Address [address] [place] [address] Assessment No assessment recorded. Plan of Treatment Reminders Order Date Submit Date Provider Last Modified By Organization Details Last Modified Time Details Appointments None recorde d. Lab glucose , fingers tick, blood 023 09/01/19jenz3 [facility], [address] [place], [address], 13:59:19 Referral None recorde d. Procedures None recorde d. Surgeries None recorde d. Imaging None recorde d. Medication Orders None recorde d. Patient TargetsNo targets recorded. Patient Instructions Encounter Date Encounter Id Patient Instructions Last Modified By Organization Details Last Modified Time 09/01/2022 [id number] Health Education and Guidance jenz Not available [...] 80-140 = normal Not Available [address] [place], [address], 09/01/2022 13:24:27 09/01/19 23 09/01/2022 gluco se, jime rstic k, blood blood sugar - fasting mg/dL 80-125 = normal Not Available [facility] [address] [place], [address], 09/01/2022 13:24:27 Result Notes None recorded. Problems [...] SNOMED-CT Code Diagnosis ICD10 Code Diagnosis Note [id number] [address] [place] [address] 12/29/2021 16:21:44 12/29/2021 16:55:03 [id number] [place] [address] [facility] [address] [place] [address] 09/01/2022 11:38:27 09/01/2022 14:06:01 History and physical examination, pre-employment [id number] Z02.1 Diabetes m ellitus screening [id number] Z13.1 Health Concerns Section Related Observation LastModified [...]
--- OUTSIDE RECORDS SUMMARY | 2024-09-18 13:26 | XMS_ITS | Clinical Summary ---
Author Organization [facility] Address [address] [place] [address] Care Team Providers Care Utilities And Maintenance Supervisor Name Role Phone Esha Corbin MD Primary Care Provider [phone] Allergies Active Allergy Reactions Criticality Noted Date Comments Bacitracin Anaphylaxis High 08/01/2024 Gabapentin Rash/Dermatitis Low 08/01/2024 Medications No known medications Encounters Date Type Department Care Team Description 08/02/2024 10:50 AM EST - 08/02/2024 2:36 PM EST [facility] Emergency Department [address] [place], [place] [address] Roverto Henry DO Near syncope (Primary Dx); Muscle twitching Discharge Disposition: Home or Self Care 08/01/2024 7:52 PM EST - 08/02/2024 12:04 AM [facility] Emergency Department [address] [place] [phone] Wily Manning DO Near syncope (Primary Dx) [...] Eosinophils Auto 1.1 % 08/02/20 12:17 PM [facility] Basophils Auto 0.7 % [...] EST Roverto Henry DO LAB BLOOD ORDERABLES [facility] [address] [place] [address], [place] [address] * Magnesium (08/02/2024 11:49 AM EST) Magnesium 2.0 1.6 - 2.7 mg/dL 08/02/2024 12:39 PM EST [facility] Blood (Plasma/Serum) 08/02/2024 11:49 AM EST 08/02/2024 12:10 PM EST Roverto Henry DO LAB BLOOD ORDERABLES Performing Organization Address City/[facility]/ZIP Co de Phone Number [facility] [address] [place] [address], [place] [address] * (ABNORMAL) Comprehensive Metabolic Panel (08/02/2024 11:49 [...] - 3.9 g/dL 08/02/2024 12:39 PM EST [facility] Albumin/Globulin Ratio 1.2 Ratio 08/02/2024 12:39 PM EST [facility] Anion Gap 10 7 - 17 08/02/2024 12:39 PM EST [facility] Blood (Plasma/Serum) 08/02/2024 11:49 AM EST 08/02/2024 12:10 PM EST Rovertokushal Henry DO LAB BLOOD ORDERABLES [facility] [address] [place] [address], [facility] [address] [place] [address] * ECG 12 lead (08/02/2024 11:02 AM EST) Only the most recent of2 resultswithin the time period is included. Ventricular rate 69 BPM EKG [facility] Atrial rate 69 BPM EKG [facility] P-R interval 266 ms EKG [facility] QRS duration 72 ms EKG [facility] Q-T interval 382 ms EKG [facility] QTC calculation (Bazett) 409 ms EKG [facility] P axis 46 degrees EKG [facility] R axis -7 degrees G [facility] T axis 17 degrees EKNEW [facility] 08/02/2024 11:0 2 AM EST Narrative EKG [facility] - 08/02/2024 1:37 PM EST Sinus rhythm with 1st degree A-V block Otherwise normal ECG When compared with ECG of 01-Aug-2024 20:24, (unconfirmed) No significant change was found Confirmed by MD Sandoval Katharine ([id number]) on 08/02/2024 1:37:41 PM Procedure Note Karen Sandoval MD - 08/03/2024 Sinus rhythm with 1st degree A-V block Otherwise normal ECG When compared with ECG of 01-Aug-2024 20:24, (unconfirmed) No significant change was found Confirmed by MD Sandoval Katharine ([id number]) on 08/02/2024 1:37:41 PM Wily Manning DO ECG ORDERABLES EKG [facility] * Troponin T, High Sensitivity (08/01/2024 9:39 PM EST) High Sensitivity Troponin T <6 <23 ng/L 08/01/2024 10:09 PM EST [facility] Delta (Change) NO PREVIOUS RESULT <3 08/01/2024 10:09 PM EST [facility] Blood (Plasma/Serum) 08/01/2024 9:39 PM EST 08/01/2024 9:46 PM EST Wily Manning DO LAB BLOOD ORDERABLES Performing Organization Address City/[facility]/[place] [address], [place] [address] * proBNP, N-terminal (08/01/2024 9:39 PM EST) Pathologist [facility] proBNP, N-terminal <36 <125 pg/mL 08/01/2024 10:09 PM EST [facility] Blood Plasma specimen / Unknown 08/01/2024 9:39 PM EST 08/01/2024 9:46 PM EST Wily Manning DO LAB BLOOD ORDERABLES Performing Organization Address City/[facility]/ZIP Co de Phone Number [facility] [address] [place] [address], [place] [address] * HIV 1/2 Ag/Ab CMIA Reflex to Confirmation (08/01/2024 9:39 PM EST) Pathologist [facility] HIV 1/2 Ag/Ab CMIA Nonreactive Nonreactive 08/04/2024 11:01 AM EST [facility] Comment: Results show no evidence [...] EST Wily Manning DO LAB BLOOD ORDERABLES [facility] [address] [place] [address], * High Sensitiviry D-Dimer (all sites except [facility]) (08/01/2024 9:39 PM EST) [facility] High Sensitivity D-Dimer <150 <230 ng/mL DDU 08/01/2024 9:58 PM EST [facility] Comment: The threshold for exclusion of [...] DO LAB BLOOD ORDERABLES Performing Organization Address City/[facility]/ZIP Co de Phone Number [facility] [address] [place] [address], [facility] [address] [place] [address] * CT Head w/o contrast (08/01/2024 9:09 [...] No acute cardiopulmonary findings. Wily Manning DO [facility] DIAGNOSTIC IMAGI NG ORDERABLES from Last 3 Months Care Teams Utilities And Maintenance Supervisor Relationship Specialty Start Date End Date Esha Corbin MD [address] [facility] [place] [phone] PCP - General 08/01/24
[2024-09-18 13:45] VITALS: BP 128/78; PULSE 95; RESP 20; TEMP 37; O2SAT 95; BMI 42.1
--- NOTE | 2024-09-18 13:45 | A.OFFPC_ITS ---
Vital Signs 09/18/24 13:45 Height 5 ft 9 in Weight 285 lb BMI 42.1 BP 128/78 Blood Pressure Location Lt brachial Position Sitting Respiration 20 Pulse 95 Pulse Source Pulse Oximeter Temp 98.6 F Temp Source Oral Pulse Oximetry (%) 95 Oxygen Delivery Method Room Air Intake Visit Reasons: Follow up Intake Note: Pt is here today for a follow up visit. Pt states that he is on Amlodipine now instead of Losartan and he noticed feeling off balance.Pt states that he noticed bubbles in his urine. Allergies A & D Allergy (Severe, Verified 09/18/24 13:49) anaphylaxis bacitracin [BACITRACIN] Allergy (Severe, Verified 09/18/24 13:49) SEIZURE , anaphylaxis Sulfa (Sulfonamide Antibiotics) Allergy (Mild, Verified 09/18/24 13:49) SWELLING adhesive tape Allergy (Verified 09/18/24 13:49) Rash atenolol Allergy (Verified 09/18/24 13:49) Heart block AV second degree gabapentin Allergy (Verified 09/18/24 13:49) Hives, elevated BP, leg twitching dapagliflozin [From Farxiga] Adverse Reaction (Intermediate, Verified 09/18/24 13:49) Abdominal Pain dulaglutide [From Trulicity] Adverse Reaction (Intermediate, Verified 09/18/24 13:49) Diarrhea, vomiting lisinopril Adverse Reaction (Intermediate, Verified 09/18/24 13:49) Dizziness lamotrigine Adverse Reaction (Verified 09/18/24 13:49) elevated BP, dizziness sweating tirzepatide [From Mounjaro] Adverse Reaction (Verified 09/18/24 13:49) Constipation losartan Allergy (Uncoded 09/18/24 13:50) feeling like he will pass out SSRI Adverse Reaction (Intermediate, Uncoded 09/18/24 13:49) DECREASE LIBIDO Medication List - Last Reconciled 09/18/24 by Esha Corbin MD amlodipine 2.5 mg PO DAILY blood sugar diagnostic (Energateuch Ultra Test strips) test blood sugar once a day blood-glucose meter (ITmedia KKTouch Ultra2 Meter kit) As directed blood-glucose sensor (T-Networks G7 Sensor device) As directed CPAP (CPAP Machine/Device) auto PAP 6-20 cm with heated humidification with needed supplies diphenhydramine HCl (Benadryl) 50 mg (2 x 25 mg) PO Q6H PRN lancets (OneTouch UltraSoft Lancets) TID lancets (OneTouch Delica Lancets) test blood sugar daily lancing device with lancets (OneTouch Delica Lancing Device kit) testing blood sugar once daily meclizine 12.5 mg PO TID 2 weeks metformin ER 1,500 mg PO DAILY simvastatin 40 mg PO DAILY warfarin 7.5 mg PO DAILY Tobacco use date assessed: 09/18/24 Dental Screening Dental Screen Date: 09/18/24 Did you have a dental visit in the last 12 months?: No Did you have a dental problem in the last 6 months where you did not have access to dental care?: No Was dental information given to patient?: Patient declined HPI Follow up HPI Details Pt presents for f/u HTN, DM 2, hyperlipid. Pt had 24 BP monitoring revealing well controlled HTN on 25 mg Losartan but it was changed to Amlodipine 2.5 mg because of itching and chest pain. Pt developed feeling of dizziness when walking on amlodipine and it was started on meclizine for 2 weeks for vertigo by nephrology and the dizziness improved significantly. Patient reports well- controlled diabetes with a fasting glucose between 100-120. [facility] Medical History (Updated 09/18/24 @ 15:10 by Esha Corbin MD) Heart block AV second degree Hypertension DM type 2 (diabetes mellitus, type 2) Factor 5 Leiden mutation, heterozygous Vitamin B 12 deficiency Dizziness Annual physical exam Skin abnormalities STD (male) Venous (peripheral) insufficiency Obesity Hyperlipidemia PVD (peripheral vascular disease) DVT (deep venous thrombosis) SOB (shortness of breath) Surgical History Hx of esophagogastroduodenoscopy Hx of colonoscopy H/O vascular surgery Family History Father CVD (cardiovascular disease) Mother CVD (cardiovascular disease) Daughter No problems noted. Son No problems noted. Social History Household Members: Spouse and Significant Other Housing: House Are you a primary managed care manager to a significant other at home: No Do you presently have visiting nurse or other home services: No Unable to assess alcohol history related to: Unknown Patient Tobacco Use Status: Former Tobacco user Tobacco use type: Cigarette e-Cigarette/Vaping Use: Never Used Second Hand Smoke Exposure: No (none) service: No Current occupational status: employed Cognitive needs: No Hearing needs: No Vision needs: No Questionnaire Thrive Questionnaire Date Thrive assessed: 08/22/24 I am a: Patient What is your living situation today?: I have a steady place to live Within the past 12 months, did the food you bought not last and you didn't have the money to get more?: I choose not to answer this question Within the past 12 months, did you worry whether your food would run out before you got money to buy more?: I choose not to answer this question Do you have trouble paying for medicines?: I choose not to answer this question Do you have trouble getting transportation to medical appointments?: I choose not to answer this question Do you have trouble paying your heating and electricity bill?: I choose not to answer this question Do you have trouble taking care of your child, family member or friend?: I choose not to answer this question Do you have trouble with day-to-day activities such as bathing, preparing meals, shopping, managing finances, etc.?: I choose not to answer this question Are you currently unemployed and looking for a job?: I choose not to answer this question Are you interested in more education?: I choose not to answer this question Please select the resources that you would like help with: None Currently or been in a relationship where the following occur: I choose not to answer THRIVE Score: 0 ANISA-7 AMB Questionnaire ANISA-7 Date ANISA - 7 assessed: 03/13/24 Source: Developed by Drs. Marco Antonio Zhu, Ginger Freed, Se Bahena and colleagues, with an educational teresita from [email or web address]. Review of Systems Const All systems reviewed & are unremarkable except as noted in HPI and below Eyes Reports no additional complaints ENT Reports no additional complaints Card Reports no additional complaints Resp Reports no additional complaints GI Reports no additional complaints Reports no additional complaints Physical exam (Primary Care) Vital Signs: Last Vital Signs Temp 98.6 F 09/18/24 13:45 Pulse 95 09/18/24 13:45 Resp 20 09/18/24 13:45 BP 128/78 09/18/24 13:45 Pulse Ox 95 09/18/24 13:45 Oxygen Delivery Method Room Air 09/18/24 13:45 BMI result Body Mass Index 42.1 Tobacco/Smoking Status: Tobacco use Status Tobacco use date assessed 09/18/24 09/18/24 13:55 Patient Tobacco Use Status Former Tobacco user 09/18/24 13:46 Tobacco use type Cigarette 09/18/24 13:46 e-Cigarette/Vaping Use Never Used 09/18/24 13:46 Thrive Assessment: Date of Thrive Assessment Date Thrive assessed 08/22/24 09/18/24 13:46 Currently or been in a relationship where the following occur: I choose not to answer Const General: no acute distress HENMT Head: Yes normal to inspection General nose exam: Normal external nose present Neck Neck: Yes no lymphadenopathy and Yes supple Resp Effort & Inspection: normal respiratory effort Auscultation: clear to auscultation bilaterally Cardio Rhythm: regular rhythm Heart sounds: S1 normal heart sound present and S2 normal heart sound present GI Inspection: Yes normal to inspection Palpation (GI): Soft to palpation Percussion: Yes normal to percussion Auscultation: normal bowel sounds Neuro Cranial nerves: Yes CN's II-XII intact bilaterally Gait exam (Neuro): Normal gait present Motor exam (neuro): 5/5 motor strength present throughout Romberg Test: Negative Coding Level of Care Code Est Pt Level 4 (59068) Diagnoses Factor 5 Leiden mutation, heterozygous D68.51 Type 2 diabetes mellitus without complication, without long-term current use of insulin E11.9 Diabetes mellitus long term care administrator insulin use: without long term care administrator use Diabetes mellitus complication status: without complication Hyperlipidemia E78.5 Primary hypertension I10 Hypertension type: primary hypertension Assessment & Plan Assessment & Plan (1) Factor 5 Leiden mutation, heterozygous: Comment: on Warfarin Code(s): D68.51 - Activated protein C resistance Category: Medical Plan: Continue Coumadin (2) DM type 2 (diabetes mellitus, type 2): Code(s): E11.9 - Type 2 diabetes mellitus without complications Category: Medical Qualifiers: Diabetes mellitus long term care administrator insulin use: without skilled nursing use Diabetes mellitus complication status: without complication Qualified Code(s): E11.9 - Type 2 diabetes mellitus without complications Plan: A1c was 6.1 in May, Continue metformin ADA diet return for follow-up in 2 months with a fasting labs (3) Hyperlipidemia: Code(s): E78.5 - Hyperlipidemia, unspecified Category: Medical Plan: Continue statin (4) Hypertension: Comment: Could not tolerate lisinopril causes dizziness, atenolol caused second-degree AV, losartan caused chest pain and itching, started on amlodipine 2.5 mg by Nephrology Code(s): I10 - Essential (primary) hypertension Category: Medical Qualifiers: Hypertension type: primary hypertension Qualified Code(s): I10 - Essential (primary) hypertension Plan: Continue amlodipine and follow-up with nephrology
== END 2024-09-18 15:11 | disposition home or self-care (01) ==
PROVIDERS: PCP Internal Medicine; Visit Provider Internal Medicine
DX: D68.51 Activated protein C resistance (principal); E11.9 Type 2 diabetes mellitus without complications; E78.5 Hyperlipidemia, unspecified; I10 Essential (primary) hypertension

== ENCOUNTER → 2024-09-18 13:17 | Outpatient (BNVA) | payer MEDICARE, MEDICAID, SELFPAY | PROVIDERS: PCP Internal Medicine; Visit Provider Internal Medicine | DX: D68.51 Activated protein C resistance (principal); E11.9 Type 2 diabetes mellitus without complications; E78.5 Hyperlipidemia, unspecified; I10 Essential (primary) hypertension | CPT/HCPCS: 99212 ==

== ENCOUNTER 2024-09-25 13:22 | Outpatient (AMB) | payer MEDICARE, MEDICAID, SELFPAY ==
--- NOTE | 2024-09-25 13:24 | HO.NEPHOV_ITS ---
Vital Signs 09/25/24 13:25 Height 5 ft 9 in Weight 288 lb BMI 42.5 BP 126/82 Blood Pressure Location Lt brachial Position Sitting Pulse 96 Pulse Source Pulse Oximeter Pulse Oximetry (%) 96 Oxygen Delivery Method Room Air Intake Visit Reasons: Per Dr Julien/ Conf Retail Selling Specialist Required: No Accompanied by: Self / Same As Patient Allergies A & D Allergy (Severe, Verified 09/25/24 13:27) anaphylaxis bacitracin [BACITRACIN] Allergy (Severe, Verified 09/25/24 13:27) SEIZURE , anaphylaxis Sulfa (Sulfonamide Antibiotics) Allergy (Mild, Verified 09/25/24 13:27) SWELLING adhesive tape Allergy (Verified 09/25/24 13:27) Rash atenolol Allergy (Verified 09/25/24 13:27) Heart block AV second degree gabapentin Allergy (Verified 09/25/24 13:27) Hives, elevated BP, leg twitching dapagliflozin [From Farxiga] Adverse Reaction (Intermediate, Verified 09/25/24 13:27) Abdominal Pain dulaglutide [From Trulicity] Adverse Reaction (Intermediate, Verified 09/25/24 13:27) Diarrhea, vomiting lisinopril Adverse Reaction (Intermediate, Verified 09/25/24 13:27) Dizziness lamotrigine Adverse Reaction (Verified 09/25/24 13:27) elevated BP, dizziness sweating tirzepatide [From Mounjaro] Adverse Reaction (Verified 09/25/24 13:27) Constipation losartan Allergy (Uncoded 09/18/24 13:50) feeling like he will pass out SSRI Adverse Reaction (Intermediate, Uncoded 09/18/24 13:49) DECREASE LIBIDO HPI Comments Details: 54-year-old man with a history of obesity and obstructive sleep apnea referred for management of hypertension. He has had hypertension for almost 4 years. Previously was on atenolol. He developed bradycardia therefore atenolol was discontinued. He was subsequently placed on losartan 50 mg. He has had episodes of low blood pressure. He was treated with gabapentin and developed a rash which was discontinued. Subsequently replace with Lamictal and he reacted to this as well which caused significant weakness. He had mild hyponatremia 133. Blood pressure spiked to 220 mm Hg systolic he was in the hospital. After discontinuing the medication blood pressure stabilized. He is here for further evaluation. History of factor 5 laden deficiency. He is on Coumadin. History of obesity 09/08/2024 Here for follow-up. Underwent 24 hour ABP M. He has been experiencing some itching and a feeling of tongue swelling while on losartan. No cough. 09/25/24 Doing better with Meclizine No further vertigo Still feels dizzy when he walks [facility] Medical History (Updated 09/22/24 @ 17:10 by Erick Julien MD) Heart block AV second degree Hypertension DM type 2 (diabetes mellitus, type 2) Factor 5 Leiden mutation, heterozygous Vitamin B 12 deficiency Dizziness Annual physical exam Skin abnormalities STD (male) Venous (peripheral) insufficiency Obesity Hyperlipidemia PVD (peripheral vascular disease) DVT (deep venous thrombosis) SOB (shortness of breath) Surgical History Hx of esophagogastroduodenoscopy Hx of colonoscopy H/O vascular surgery Family History Father CVD (cardiovascular disease) Mother CVD (cardiovascular disease) Daughter No problems noted. Son No problems noted. Social History Household Members: Spouse and Significant Other Housing: House Are you a primary medicare insurance specialist to a significant other at home: No Do you presently have visiting nurse or other home services: No Unable to assess alcohol history related to: Unknown Patient Tobacco Use Status: Former Tobacco user Tobacco use type: Cigarette e-Cigarette/Vaping Use: Never Used Second Hand Smoke Exposure: No (none) service: No Current occupational status: employed Cognitive needs: No Hearing needs: No Vision needs: No Physical Exam Vital Signs: Last Vital Signs Pulse 96 09/25/24 13:25 BP 126/82 09/25/24 13:25 Pulse Ox 96 09/25/24 13:25 Oxygen Delivery Method Room Air 09/25/24 13:25 BMI result Body Mass Index 42.5 Comfortable Neck supple no JVD. Lungs entry equal no rales. Heart S1-S2 heard no gallop or rub. Abdomen soft nontender. Neuro alert awake oriented. No asterixis. Extremities no edema. Results Reviewed Nephrology Results: Hgb 15.6 g/dl (14.0-18.0) 08/27/24 WBC 9.3 X10*3/uL (4.8-10.8) 08/27/24 Plt Count 223 X10*3/uL (160-400) 08/27/24 Sodium 137 mmol/L (135-145) 08/27/24 Potassium 4.5 mmol/L (3.3-5.1) 08/27/24 Chloride 104 mmol/L (96-108) 08/27/24 Carbon Dioxide 26 mmol/L (22-29) 08/27/24 BUN 16 mg/dL (9-16) 08/27/24 Creatinine 0.83 mg/dL (0.5-1.4) 08/27/24 Calcium 9.9 mg/dL (8.4-10.2) 08/27/24 Assessment & Plan Assessment & Plan (1) Hypertension: Comment: Could not tolerate lisinopril causes dizziness, atenolol caused second-degree AV, losartan caused chest pain and itching, started on amlodipine 2.5 mg recently Code(s): I10 - Essential (primary) hypertension Category: Medical Qualifiers: Hypertension type: primary hypertension Qualified Code(s): I10 - Essential (primary) hypertension Plan 53-year-old man with obesity and obstructive sleep apnea with hypertension. Blood pressure well controlled at this time. He has had episodes of hypertension as well as blood pressure spikes. Encouraged stay on low-sodium diet continue to use CPAP regularly. 24 hour ABPM revealed well-controlled hypertension with nocturnal dipping. He had few episodes of low readings. Therefore I would lower his antihypertensive medication. Since he has had some sensation of tongue swelling with losartan - discontinued losartan. Replaced with amlodipine 2.5 mg. He is on simvastatin therefore I will keep her on a low dose of amlodipine. Vertigo resolved Use Meclizine PRN Orders: Orders Basic Metabolic Panel 4 Months I10 - Essential (primary) hypertension Coding Level of Care Code Est Pt Level 4 (04161) Diagnoses Primary hypertension I10 Hypertension type: primary hypertension
[2024-09-25 13:25] VITALS: BP 126/82; PULSE 96; O2SAT 96; BMI 42.5
--- OUTSIDE RECORDS SUMMARY | 2024-09-25 14:18 | XMS_ITS | Continuity of Care Document ---
Author Organization [facility] Address [address] [place] [phone] Phone Care Team Providers Care Entry Level Staff Accountant Name Role Phone David Haddad MD, FACS [...] Providers Copied on Encounter OFFICE/OUTPA TIENT VISIT, [facility], [address] [facility] [address], [place], [id number], [place] tel: [phone] [place] 3 Varicose Veins With Inflammation Sep-0 6 3 Wixon Dann er. [address] [facility], [address], [id number] , [place]. tel: [phone] Referring Provider: David Covarrubias, [facility] [address], [place], [address]. tel:[phone] [facility], [address] [place] [address] [address], [place], [id number], [place] tel: [phone] [facility] Varicose Veins With InflammationVen ous insufficiency, ChronicSwelling of limbPostphlebet ic syndrome with inflammation Sep-0 4 3 Viviane Rodriguez. [address] [facility], Ivan [address] [place] [address], [id number] . tel: [phone] OFFICE/OUTPA TIENT VISIT, [facility], [facility] [address], [place], [id number], [place] tel: [phone] [place] 3 Varicose Veins With Inflammation Jan- 3 Geexon Dann er. [address] [facility], [facility] [address], [place], [id number] , [place]. tel: [phone] Referring Provider: David Covarrubias, [facility] [address], [address]. tel:[phone] [facility], [address] [place], [place] [address] [address], [place], [id number], [place] tel:[phone] Procedure No Information 3 Catie Quigley er. [address], [id number] , . tel: [phone] Referring Provider: David Covarrubias, [address] [place] [address], [id number]. tel:[phone] OFFICE/OUTPA TIENT VISIT, [facility], [address] [place] [address], [id number], tel: [phone] [place] 3 Varicose Veins With Inflammation Nov- 2- 3 Wixtatum Quigley er. [address] [place] [address], [id number] , [place]. tel: [phone] Referring Provider: David Covarrubias, [address] [place] [address], [address]. tel:[phone] OFFICE/OUTPA TIENT VISIT, [facility], [address] [place] [address], [id number], tel: [phone] [place] 3 Postphlebetic syndrome with inflammation Nov-0 3 Catie Quigley er. [address] [place] [address], [id number] , [place]. tel: [phone] Referring Provider: Hemal Miranda, [facility] [address] [place] [address], [address]. tel:[phone] [facility], [address] [place] [address], [id number], tel: [phone] [facility] No Information 0 3 Catie Quigley er. [address] [place] [address], [id number] , [place]. tel: [phone] Family History Family Member Type Diagnosis Age At Onset Family Hx of Problem (finding) Obesity Family Hx of Problem (finding) Varicose Veins Family Hx of Problem (finding) DVT Family Hx of Problem (finding) Diabetes mellitus Family Hx of Problem (finding) hypertension Payers Payer name Insurance type Covered republican ID Authorlamonta donnieon(s) [employer] Choice PPO Medicare Plan CI [id number] Social History Type Description Quantity Date Captured [...]
--- OUTSIDE RECORDS SUMMARY | 2024-09-25 14:18 | XMS_ITS | Clinical Summary ---
Author Organization [employer] Address [address] [facility] 7t [place] [address] Care Team Providers Care Car Varnisher Name Role Phone Unavailable Primary Care Provider [...] Insurance [address] [place] [id number] [place] [address] [place] [phone] [facility] [address] [place] [address] D[facility]AL-[facility] MEDICAID STAND ADULT [address] [place] [id number] [address] [place] [id number] [address] [facility] [place] [id number]
--- OUTSIDE RECORDS SUMMARY | 2024-09-25 14:18 | XMS_ITS | Clinical Summary ---
Author Organization [facility] Address [address] [place] [address] Care Team Providers Care Administrative Analyst Name Role Phone Esha Corbin MD Primary Care Provider [phone] Allergies Active Allergy Reactions Criticality Noted Date Comments Bacitracin Anaphylaxis High 08/01/2024 Gabapentin Rash/Dermatitis Low 08/01/2024 Medications No known medications Encounters Date Type Department Care Team Description 08/02/2024 10:50 AM EST - 08/02/2024 2:36 PM EST Emergency [facility] Emergency Department [address] [place], [place] [phone] Roverto Henry DO Near syncope (Primary Dx); Muscle twitching Discharge Disposition: Home or Self Care 08/01/2024 7:52 PM EST - 08/02/2024 12:04 AM [facility] Emergency Department [address] [place] [phone] Wily Manning DO Near syncope (Primary Dx) [...] 4.0 - 11.0 Thou/uL 08/02/2024 12:17 PM [facility] Platelet Count 221 150 - 450 Thou/uL 08/02/2024 12:17 PM [facility] Hemoglobin 14.9 13.0 - 17.7 g/dL 08/02/2024 12:17 PM [facility] Hematocrit 45.0 39.0 - 54.0 % 08/02/2024 12:17 PM [facility] Red Blood Cell Count 4.87 4.50 - 6.20 Mil/uL 08/02/2024 12:17 PM [facility] MCV 92 80 - 100 fL 08/02/2024 12:17 PM [facility] MCH 30.6 27.0 - 31.0 pg 08/02/2024 12:17 PM [facility] MCHC 33.1 30.0 - 36.0 g/dL 08/02/2024 12:17 PM [facility] RDW 12.8 11.5 - 14.5 % 08/02/2024 12:17 PM [facility] MPV 9.3 7.5 - 12.5 fL 08/02/2024 12:17 PM [facility] Neutrophils Auto 72.8 % 08/02/20 12:17 PM [facility] Immature Granulocytes 0.4 % 08/02/2024 12:17 PM [facility] Lymphocytes Auto 18.9 % 08/02/20 12:17 PM [facility] Monocytes Auto 6.1 % 08/02/2024 12:17 PM [facility] Eosinophils Auto 1.1 % 08/02/20 12:17 PM [facility] Basophils Auto 0.7 % 08/02/2024 12:17 PM [facility] Abs Neutrophils Auto 5.37 2.00 - 7.50 Thou/uL 08/02/2024 12:17 PM [facility] Abs Immature Granulocytes 0.03 0.00 - 0.10 Thou/uL 08/02/2024 12:17 PM [facility] Abs Lymphocytes Auto 1.39(L) 1.50 - 4.50 Thou/uL 08/02/2024 12:17 PM [facility] Abs Monocytes Auto 0.45 0.20 - 1.50 Thou/uL 08/02/2024 12:17 PM [facility] Abs Eosinophils Auto 0.08 0.00 - 0.70 Thou/uL 08/02/2024 12:17 PM [facility] Abs Basophils Auto 0.05 0.00 - 0.20 Thou/uL 08/02/2024 12:17 PM [facility] Blood Blood specimen / Unknown 08/02/2024 11:49 AM EST 08/02/2024 12:09 PM EST Roverto Henry DO LAB BLOOD ORDERABLES [facility] [address] [place] [address], [place] [address] * Magnesium (08/02/2024 11:49 AM EST) Magnesium 2.0 1.6 - 2.7 mg/dL 08/02/2024 12:39 PM EST [facility] Blood (Plasma/Serum) 08/02/2024 11:49 AM EST 08/02/2024 12:10 PM EST Roverto Henry DO LAB BLOOD ORDERABLES Performing Organization Address City/[facility]/ZIP Co de Phone Number [facility] [address] [place] [address], [place] [address] * (ABNORMAL) Comprehensive Metabolic Panel (08/02/2024 11:49 AM EST) Only the most recent of2 resultswithin the time period is included. Glucose 181(H) 65 - 99 mg/dL 08/02/2024 12:39 PM [facility] Comment:Fasting: <100 mg/dL, Non-Fasting: <200 mg/dL (ADA 2004) Blood Urea Nitrogen (BUN) 14 8 - 21 mg/dL 08/02/2024 12:39 PM [facility] Creatinine 0.7 0.5 - 1.3 mg/dL 08/02/2024 12:39 PM [facility] eGFR >90 >59 08/02/2024 12:39 PM [facility] Comment:CKD-EPI (2020) in mL /min/1.73 sq meters. Sodium 134(L) 136 - 145 mmol/L 08/02/2024 12:39 PM [facility] Potassium 4.6 3.4 - 5.3 mmol/L 08/02/2024 12:39 PM [facility] Chloride 100 98 - 107 mmol/L 08/02/2024 12:39 PM [facility] CO2 24 22 - 33 mmol/L 08/02/2024 12:39 PM [facility] Calcium 9.7 8.7 - 10.5 mg/dL 08/02/2024 12:39 PM [facility] Alkaline Phosphatase 56 45 - 128 U/L 08/02/2024 12:39 PM [facility] Aspartate Aminotrans (AST) 37 10 - 55 U/L 08/02/2024 12:39 PM [facility] Alanine Aminotrans (ALT) 24 10 - 55 U/L 08/02/2024 12:39 PM [facility] Bilirubin, Total 0.6 0.2 - 1.0 mg/dL 08/02/2024 12:39 PM [facility] Protein, Total 7.5 6.3 - 8.3 g/dL 08/02/2024 12:39 PM [facility] Albumin 4.1 3.5 - 5.0 g/dL 08/02/2024 12:39 PM [facility] BUN/Creatinine Ratio 20 10.0 - 25.0 Ratio 08/02/2024 12:39 PM [facility] Globulin 3.4 1.5 - 3.9 g/dL 08/02/2024 12:39 PM EST [facility] Albumin/Globulin Ratio 1.2 Ratio 08/02/2024 12:39 PM EST [facility] Anion Gap 10 7 - 17 08/02/2024 12:39 PM EST [facility] Blood (Plasma/Serum) 08/02/2024 11:49 AM EST 08/02/2024 12:10 PM EST Rovertokushal Henry DO LAB BLOOD ORDERABLES [facility] [address] [place] [address], [facility] [address] [place] [address] * ECG 12 lead (08/02/2024 11:02 AM EST) Only the most recent of2 resultswithin the time period is included. Ventricular rate 69 BPM EKG [facility] Atrial rate 69 BPM EKG [facility] P-R interval 266 ms EKG [facility] QRS duration 72 ms EKG [facility] Q-T interval 382 ms EKG [facility] QTC calculation (Bazett) 409 ms EKG [facility] P axis 46 degrees EKG [facility] R axis -7 degrees G [facility] T axis [facility] 08/02/2024 11:0 2 AM EST Narrative EKG [facility] - 08/02/2024 1:37 PM EST Sinus rhythm with 1st degree A-V block Otherwise normal ECG When compared with ECG of 01-Aug-2024 20:24, (unconfirmed) No significant change was found Confirmed by MD Sandoval Katharine ([id number]) on 08/02/2024 1:37:41 PM Procedure Note Karen Sandoval MD - 08/03/2024 Sinus rhythm with 1st degree A-V block Otherwise normal ECG When compared with ECG of 01-Aug-2024 20:24, (unconfirmed) No significant change was found Confirmed by MD Sandoval Katharine ([id number]) on 08/02/2024 1:37:41 PM Wily Manning DO ECG ORDERABLES EKG [facility] * Troponin T, High Sensitivity (08/01/2024 9:39 PM EST) High Sensitivity Troponin T <6 <23 ng/L 08/01/2024 10:09 PM EST [facility] Delta (Change) NO PREVIOUS RESULT <3 08/01/2024 10:09 PM EST [facility] Blood (Plasma/Serum) 08/01/2024 9:39 PM EST 08/01/2024 9:46 PM EST Wily Manning DO LAB BLOOD ORDERABLES Performing Organization Address City/[facility]/[place] [address], [place] [address] * proBNP, N-terminal (08/01/2024 9:39 PM EST) Pathologist [facility] proBNP, N-terminal <36 <125 pg/mL 08/01/2024 10:09 PM EST [facility] Blood Plasma specimen / Unknown 08/01/2024 9:39 PM EST 08/01/2024 9:46 PM EST Wily Manning DO LAB BLOOD ORDERABLES Performing Organization Address City/[facility]/ZIP Co de Phone Number [facility] [address] [place] [address], [place] [address] * HIV 1/2 Ag/Ab CMIA Reflex to Confirmation (08/01/2024 9:39 PM EST) Pathologist [facility] HIV 1/2 Ag/Ab CMIA Nonreactive Nonreactive 08/04/2024 11:01 AM EST [facility] Comment: Results show no [...] EST Wily Manning DO LAB BLOOD ORDERABLES [facility] [address] [place] [address], * High Sensitiviry D-Dimer (all sites except [facility]) (08/01/2024 9:39 PM EST) [facility] High Sensitivity D-Dimer <150 <230 ng/mL DDU 08/01/2024 9:58 PM EST [facility] Comment: The threshold for exclusion of venous [...] DO LAB BLOOD ORDERABLES Performing Organization Address City/[facility]/ZIP Co de Phone Number [facility] [address] [place] [address], [facility] [address] [place] [address] * CT Head w/o contrast (08/01/2024 9:09 [...] No acute cardiopulmonary findings. Wily Manning DO [facility]NO[facility]IC IMAGI NG ORDERABLES from Last 3 Months Care Teams Administrative Analyst Relationship Specialty Start Date End Date Esha Corbin MD [address] [facility] [place] [id number] PCP - General 08/01/24
--- OUTSIDE RECORDS SUMMARY | 2024-09-25 14:18 | XMS_ITS | Data Portability ---
Author Organization [facility] Address [address] [place] [address] Assessment No assessment recorded. Plan of Treatment Reminders Order Date Submit Date Provider Last Modified By Organization Details Last Modified Time Details Appointments None recorde d. Lab glucose , fingers tick, blood 023 09/01/19jenz3 [facility], [address] [place], [phone], 13:59:19 Referral None recorde d. Procedures None recorde d. Surgeries None recorde d. Imaging None recorde d. Medication Orders None recorde d. Patient TargetsNo targets recorded. Patient Instructions Encounter Date Encounter Id Patient Instructions Last Modified By Organization Details Last Modified Time 09/01/2022 [id number] Health Education and Guidance jenz Not available [...] 80-140 = normal Not Available [address] [place], [phone], 09/01/2022 13:24:27 09/01/19 23 09/01/2022 gluco se, jime rstic k, blood blood sugar - fasting mg/dL 80-125 = normal Not Available [facility] [address] [place], [address], 09/01/2022 13:24:27 Result Notes None recorded. Problems [...] SNOMED-CT Code Diagnosis ICD10 Code Diagnosis Note [id number] [address] [place] [address] 12/29/2021 16:21:44 12/29/2021 16:55:03 [id number] [place] [address] [facility] [address] [place] [address] 09/01/2022 11:38:27 09/01/2022 14:06:01 History and physical examination, pre-employment [id number] Z02.1 Diabetes m ellitus screening [id number] Z13.1 Health Concerns Section Related Observation LastModified [...]
== END 2024-09-25 13:40 | disposition home or self-care (01) ==
PROVIDERS: PCP Internal Medicine; Visit Provider Internal Medicine Hypertension Specialist
DX: I10 Essential (primary) hypertension (principal)
CPT/HCPCS: 99214

== ENCOUNTER → 2024-09-25 13:22 | Outpatient (BNVA) | payer MEDICARE, MEDICAID, SELFPAY | PROVIDERS: PCP Internal Medicine; Visit Provider Internal Medicine Hypertension Specialist | DX: I10 Essential (primary) hypertension (principal) | CPT/HCPCS: 99212 ==

== ENCOUNTER 2024-09-27 14:32 | Emergency (ER) | payer MEDICARE, MEDICAID, SELFPAY ==
--- NOTE | 2024-09-27 14:38 | ED.GENADULT ---
HPI - General Adult General Chief complaint: General Medical Stated complaint: BP high & dizzy spells while walking Time Seen by Provider: 09/27/24 19:50 Source: patient Limitations: no limitations History of Present Illness ED Provider: Jane Ravi PA-C HPI narrative: 54-year-old male with a history of morbid obesity, APOLLO on CPAP, hypertension and diabetes presents with elevated blood pressure. Patient states he was started on blood pressure medication in July. Since, he has had adverse reactions to 2 with the medications; patient was on atenolol then losartan. Patient was placed on low-dose amlodipine 2.5 mg taken daily, 2/3. This is the only blood pressure medication that he takes. Patient notes periodically throughout the day that his blood pressure will elevate. Denies chest pain, shortness of breath, orthopnea, new weight gain, new pedal edema. Related Data Allergies Allergy/AdvReac Type Severity Reaction Status Date / Time bacitracin Allergy Intermediate Anaphylaxis Verified 09/27/24 14:38 gabapentin Allergy Intermediate Rash Verified 09/27/24 14:44 losartan Allergy Intermediate Angioedema Verified 09/27/24 14:44 Review of Systems Review of Systems: Yes all other systems are reviewed and are negative Constitutional: Constitutional: Denies fatigue and Denies fever(s) Cardiovascular: Cardiovascular: Denies chest pain, Denies leg edema and Denies dyspnea Respiratory: Respiratory: Denies dyspnea Endocrine: Endocrine: Denies fatigue [facility] Past Medical History Attestation statement: The following information was validated with the patient. Social History Social History Advance Directives: No Advance Directives Information Provided: No Do you have a plan to hurt others: No Plan Physical Exam ED Vital Signs: Vital Signs - 24 hr 09/27/24 14:39 09/27/24 19:57 Temperature 98.3 F 97.7 F Pulse Rate 90 84 Respiratory Rate 18 18 Blood Pressure 182/114 H 168/106 H Pulse Oximetry 97 99 Oxygen Delivery Method Room Air Room Air BMI result Body Mass Index 41.0 Const Other: Alert, appears older than stated age Orientation/consciousness: patient oriented x3 Resp Effort & Inspection: normal respiratory effort Cardio Other: Normal peripheral perfusion Skin Other: Warm dry no rash Neuro General: patient oriented x3, gait normal, no focal motor deficits and CN's II-XI intact bilaterally Psych Other: Calm cooperative Course Course Course Narrative: RME performed by Jael Chou PA-C. Patient is a 54 year old assigned male at presenting to the emergency department with elevated blood pressure. Patient states that he has been going on short walks and his blood pressure is high. Detailed physical exam and review of systems are deferred to the pension manager. EKG, labs, imaging, and swabs ordered. Patient placed back in the waiting room pending room availability and results. Medical Decision Making Medical Decision Making [facility] Narrative: 54-year-old male with a history of morbid obesity, APOLLO on CPAP, hypertension and diabetes presents with elevated blood pressure. Patient states he was started on blood pressure medication in July. Since, he has had adverse reactions to 2 with the medications; patient was on atenolol then losartan. Patient was placed on low-dose amlodipine 2.5 mg taken daily, 2/3. This is the only blood pressure medication that he takes. Patient notes periodically throughout the day that his blood pressure will elevate. Denies chest pain, shortness of breath, orthopnea, new weight gain, new pedal edema. Problem: Obesity, sleep apnea, hypertension diabetes History: Per patient I have considered the following differential diagnoses: Hypertensive urgency, hypertensive emergency, end-organ damage Plan: Screening labs including a cardiac enzyme and EKG were obtained from triage. There was no evidence of end-organ damage, there were no ischemic changes on the EKG. The patient it is pressures 160s. The patient can continue to follow up with his primary care provider, there was nothing emergent to do here overnight. I have independently reviewed the following tests: Labs: No leukocytosis, not anemic, no electrolyte abnormality, creatinine at baseline, troponin negative EKG: Sinus rhythm with first-degree AV block, rate 81, no ischemic changes no ectopy, QTC 432 Lab Data 09/27/24 14:54 09/27/24 14:54 Labs: Lab Results 09/27/24 Range/Units 14:54 WBC 7.8 (4.8-10.8) X10*3/uL RBC 5.08 (4.60-5.80) X10*6/uL Hgb 15.5 (14.0-18.0) g/dl Hct 44.6 (42.0-52.0) % MCV 87.8 (80.0-98.0) fL MCH 30.5 (27.0-33.0) pg MCHC 34.8 (31.0-36.0) g/dl RDW 12.7 (11.0-16.0) % Plt Count 225 (160-400) X10*3/uL MPV 9.1 L (9.4-12.4) fL Immature Gran % (Auto) 0.4 (0.0-0.4) % Neut % (Auto) 65.9 (45-73) % Lymph % (Auto) 25.1 (20-40) % [place] % (Auto) 6.5 (2-11) % Eos % (Auto) 1.5 (0-4) % Baso % (Auto) 0.6 (0-2) % Lymph # (Auto) 2.0 (1.2-4.9) X10*3/uL [place] # (Auto) 0.5 (0.1-1.2) X10*3/uL Eos # (Auto) 0.1 (0.0-0.4) X10*3/uL Baso # (Auto) 0.1 (0.0-0.2) X10*3/uL Abs Immat Gran (auto) 0.03 (0.00-0.03) X10*3/uL Absolute Neuts (auto) 5.2 (2.0-8.3) x10*3/uL Absolute Nucleated RBC 0.000 (0.0-0.012) X10*3/uL Nucleated RBC % (auto) 0.0 (0.0-0.2) /100WBC Sodium 137 (135-145) mmol/L Potassium 4.3 (3.3-5.1) mmol/L Chloride 102 (96-108) mmol/L Carbon Dioxide 26 (22-29) mmol/L Anion Gap 13 (12-20) BUN 14 (9-16) mg/dL Creatinine 0.83 (0.5-1.4) mg/dL Estim Creat Clear Calc 135.1 Estimated GFR > 60 Random Glucose 174 H (60-115) mg/dL Calcium 9.6 (8.4-10.2) mg/dL Magnesium 2.0 (1.6-2.6) mg/dL Total Bilirubin 0.5 (0.0-1.0) mg/dL AST 31 (5-37) U/L ALT 29 (0-40) U/L Alkaline Phosphatase 57 (39-117) U/L Troponin I High Sens < 2.7 (<3.5-35.0) ng/L Total Protein 8.5 H (6.5-8.0) g/dL Albumin 4.2 (3.5-5.0) g/dL Influenza Type A (PCR) NEGATIVE (Negative) Influenza Type B (PCR) NEGATIVE (Negative) RSV RNA Qual (PCR) NEGATIVE (Negative) SARS-CoV-2 RNA (RT-PCR) NEGATIVE (Negative) Discharge Plan Discharge Clinical Impression: Hypertension Patient Disposition: Home, Self-Care Instructions: Hypertension and Diabetes (ED), How to Take a Blood Pressure (ED), Heart Healthy Diet (ED) Additional Instructions: All of your screening labs including a cardiac enzymes were normal. There were no concerning changes on your EKG. You need to continue to follow up with your healthcare providers in regard to your hypertension, contact them on Sunday. Print Language: Maltese
[2024-09-27 14:39] VITALS: BP 182/114; PULSE 90; RESP 18; TEMP 36.8; O2SAT 97; BMI 41.0
--- NOTE | 2024-09-27 14:39 | ECG_ITS ---
Test Reason : HTN Blood Pressure : */* mmHG Vent. Rate : 81 BPM Atrial Rate : 81 BPM P-R Int : 240 ms QRS Dur : 80 ms QT Int : 372 ms P-R-T Axes : 50 -8 35 degrees QTcB Int : 432 ms Sinus rhythm with 1st degree A-V block Otherwise normal ECG No previous ECGs available Referred By: Jael Chou Electronically Signed By: OWEN MERCEDES
[2024-09-27 15:00] LABS: MANUAL DIFF FLAG NO
--- OUTSIDE RECORDS SUMMARY | 2024-09-27 15:00 | XMS_ITS | Clinical Summary ---
Author Organization Formerly [facility] Address [address] [place] [address] Care Team Providers Care Decision Science Analyst Name Role Phone Esha Corbin MD Primary Care Provider [phone] Allergies Active Allergy Reactions Criticality Noted Date Comments Bacitracin Anaphylaxis High 08/01/2024 Gabapentin Rash/Dermatitis Low 08/01/2024 Medications No known medications Encounters Date Type Department Care Team Description 08/02/2024 10:50 AM EST - 08/02/2024 2:36 PM EST Emergency [facility] Emergency Department [address] [place], [place] [id number] Roverto Henry DO Near syncope (Primary Dx); Muscle twitching Discharge Disposition: Home or Self Care 08/01/2024 7:52 PM EST - 08/02/2024 12:04 AM [facility] Emergency Department [address] [place] [phone] Wily Manning DO Near syncope (Primary Dx) [...] 4.0 - 11.0 Thou/uL 08/02/2024 12:17 PM [facility] Platelet Count 221 150 - 450 Thou/uL 08/02/2024 12:17 PM [facility] Hemoglobin 14.9 13.0 - 17.7 g/dL 08/02/2024 12:17 PM [facility] Hematocrit 45.0 39.0 - 54.0 % 08/02/2024 12:17 PM [facility] Red Blood Cell Count 4.87 4.50 - 6.20 Mil/uL 08/02/2024 12:17 PM [facility] MCV 92 80 - 100 fL 08/02/2024 12:17 PM [facility] MCH 30.6 27.0 - 31.0 pg 08/02/2024 12:17 PM [facility] MCHC 33.1 30.0 - 36.0 g/dL 08/02/2024 12:17 PM [facility] RDW 12.8 11.5 - 14.5 % 08/02/2024 12:17 PM [facility] MPV 9.3 7.5 - 12.5 fL 08/02/2024 12:17 PM [facility] Neutrophils Auto 72.8 % 08/02/20 12:17 PM [facility] Immature Granulocytes 0.4 % 08/02/2024 12:17 PM [facility] Lymphocytes Auto 18.9 % 08/02/20 12:17 PM [facility] Monocytes Auto 6.1 % 08/02/2024 12:17 PM [facility] Eosinophils Auto 1.1 % 08/02/20 12:17 PM [facility] Basophils Auto 0.7 % 08/02/2024 12:17 PM [facility] Abs Neutrophils Auto 5.37 2.00 - 7.50 Thou/uL 08/02/2024 12:17 PM [facility] Abs Immature Granulocytes 0.03 0.00 - 0.10 Thou/uL 08/02/2024 12:17 PM [facility] Abs Lymphocytes Auto 1.39(L) 1.50 - 4.50 Thou/uL 08/02/2024 12:17 PM [facility] Abs Monocytes Auto 0.45 0.20 - 1.50 Thou/uL 08/02/2024 12:17 PM [facility] Abs Eosinophils Auto 0.08 0.00 - 0.70 Thou/uL 08/02/2024 12:17 PM [facility] Abs Basophils Auto 0.05 0.00 - 0.20 Thou/uL 08/02/2024 12:17 PM [facility] Blood Blood specimen / Unknown 08/02/2024 11:49 AM EST 08/02/2024 12:09 PM EST Roverto Henry DO LAB BLOOD ORDERABLES [facility] [address] [place] [address], [place] [address] * Magnesium (08/02/2024 11:49 AM EST) Magnesium 2.0 1.6 - 2.7 mg/dL 08/02/2024 12:39 PM EST [facility] Blood (Plasma/Serum) 08/02/2024 11:49 AM EST 08/02/2024 12:10 PM EST Roverto Henry DO LAB BLOOD ORDERABLES Performing Organization Address City/[facility]/ZIP Co de Phone Number [facility] [address] [place] [address], [place] [address] * (ABNORMAL) Comprehensive Metabolic Panel (08/02/2024 11:49 AM EST) Only the most recent of2 resultswithin the time period is included. Glucose 181(H) 65 - 99 mg/dL 08/02/2024 12:39 PM [facility] Comment:Fasting: <100 mg/dL, Non-Fasting: <200 mg/dL (ADA 2004) Blood Urea Nitrogen (BUN) 14 8 - 21 mg/dL 08/02/2024 12:39 PM [facility] Creatinine 0.7 0.5 - 1.3 mg/dL 08/02/2024 12:39 PM [facility] eGFR >90 >59 08/02/2024 12:39 PM [facility] Comment:CKD-EPI (2020) in mL /min/1.73 sq meters. Sodium 134(L) 136 - 145 mmol/L 08/02/2024 12:39 PM [facility] Potassium 4.6 3.4 - 5.3 mmol/L 08/02/2024 12:39 PM [facility] Chloride 100 98 - 107 mmol/L 08/02/2024 12:39 PM [facility] CO2 24 22 - 33 mmol/L 08/02/2024 12:39 PM [facility] Calcium 9.7 8.7 - 10.5 mg/dL 08/02/2024 12:39 PM [facility] Alkaline Phosphatase 56 45 - 128 U/L 08/02/2024 12:39 PM [facility] Aspartate Aminotrans (AST) 37 10 - 55 U/L 08/02/2024 12:39 PM [facility] Alanine Aminotrans (ALT) 24 10 - 55 U/L 08/02/2024 12:39 PM [facility] Bilirubin, Total 0.6 0.2 - 1.0 mg/dL 08/02/2024 12:39 PM [facility] Protein, Total 7.5 6.3 - 8.3 g/dL 08/02/2024 12:39 PM [facility] Albumin 4.1 3.5 - 5.0 g/dL 08/02/2024 12:39 PM [facility] BUN/Creatinine Ratio 20 10.0 - 25.0 Ratio 08/02/2024 12:39 PM [facility] Globulin 3.4 1.5 - 3.9 g/dL 08/02/2024 12:39 PM EST [facility] Albumin/Globulin Ratio 1.2 Ratio 08/02/2024 12:39 PM EST [facility] Anion Gap 10 7 - 17 08/02/2024 12:39 PM EST [facility] Blood (Plasma/Serum) 08/02/2024 11:49 AM EST 08/02/2024 12:10 PM EST Rovertokushal Henry DO LAB BLOOD ORDERABLES [facility] [address] [place] [address], [facility] [address] [place] [address] * ECG 12 lead (08/02/2024 11:02 AM EST) Only the most recent of2 resultswithin the time period is included. Ventricular rate 69 BPM EKG [facility] Atrial rate 69 BPM EKG [facility] P-R interval 266 ms EKG [facility] QRS duration 72 ms EKG [facility] Q-T interval 382 ms EKG [facility] QTC calculation (Bazett) 409 ms EKG [facility] P axis 46 degrees EKG [facility] R axis -7 degrees G [facility] T axis 17 degrees [facility] 08/02/2024 11:0 2 AM EST Narrative EKG [facility] - 08/02/2024 1:37 PM EST Sinus rhythm with 1st degree A-V block Otherwise normal ECG When compared with ECG of 01-Aug-2024 20:24, (unconfirmed) No significant change was found Confirmed by MD Sandoval Katharine ([id number]) on 08/02/2024 1:37:41 PM Procedure Note Karen Sandoval MD - 08/03/2024 Sinus rhythm with 1st degree A-V block Otherwise normal ECG When compared with ECG of 01-Aug-2024 20:24, (unconfirmed) No significant change was found Confirmed by MD Sandoval Katharine ([id number]) on 08/02/2024 1:37:41 PM Wily Manning DO ECG ORDERABLES EKG [facility] * Troponin T, High Sensitivity (08/01/2024 9:39 PM EST) High Sensitivity Troponin T <6 <23 ng/L 08/01/2024 10:09 PM EST [facility] Delta (Change) NO PREVIOUS RESULT <3 08/01/2024 10:09 PM EST [facility] Blood (Plasma/Serum) 08/01/2024 9:39 PM EST 08/01/2024 9:46 PM EST Wily Manning DO LAB BLOOD ORDERABLES Performing Organization Address City/[facility]/[place] [address], [place] [address] * proBNP, N-terminal (08/01/2024 9:39 PM EST) Pathologist [facility] proBNP, N-terminal <36 <125 pg/mL 08/01/2024 10:09 PM EST [facility] Blood Plasma specimen / Unknown 08/01/2024 9:39 PM EST 08/01/2024 9:46 PM EST Wily Manning DO LAB BLOOD ORDERABLES Performing Organization Address City/[facility]/ZIP Co de Phone Number [facility] [address] [place] [address], [place] [address] * HIV 1/2 Ag/Ab CMIA Reflex to Confirmation (08/01/2024 9:39 PM EST) Pathologist [facility] [place] HIV 1/2 Ag/Ab CMIA Nonreactive Nonreactive 08/04/2024 11:01 AM EST [facility] Comment: Results show no [...] DO LAB BLOOD ORDERABLES [facility] [address] [place] [address], * High Sensitiviry D-Dimer (all sites except [facility]) (08/01/2024 9:39 PM EST) [facility] High Sensitivity D-Dimer <150 <230 ng/mL DDU 08/01/2024 9:58 PM EST [facility] Comment: The threshold for exclusion of venous [...] DO LAB BLOOD ORDERABLES Performing Organization Address City/[facility]/ZIP Co de Phone Number [facility] [address] [place] [address], [facility] [address] [place] [address] * CT Head w/o contrast (08/01/2024 9:09 [...] pneumothorax. No acute osseous abnormality. Procedure Note iBnh Rosario MD - 08/01/2024 EXAM: XR CHEST 2 VIEWS on 08/01/2024 8:38 PM CLINICAL HISTORY: 54 years Male with provided history of near syncopal . COMPARISONS: None TECHNIQUE: 2 view(s) of the chest. FINDINGS: Normal cardiomediastinal silhouette. No consolidation, pleural effusion, or pneumothorax. No acute osseous abnormality. IMPRESSION: No acute cardiopulmonary findings. Wily Manning DO [facility] NG ORDERABLES from Last 3 Months Care Teams Decision Science Analyst Relationship Specialty Start Date End Date Esha Corbin MD [address] [facility] [place] [id number] PCP - General 08/01/24
--- OUTSIDE RECORDS SUMMARY | 2024-09-27 15:00 | XMS_ITS | Data Portability ---
Author Organization [facility], [address] Address [address] [place] [address] Assessment No assessment recorded. Plan of Treatment Reminders Order Date Submit Date Provider Last Modified By Organization Details Last Modified Time Details Appointments None recorde d. Lab glucose , fingers tick, blood 023 09/01/19jenz3 [facility] [address], [address] [place], [address], 13:59:19 Referral None recorde d. Procedures None recorde d. Surgeries None recorde d. Imaging None recorde d. Medication Orders None recorde d. Patient TargetsNo targets recorded. Patient Instructions Encounter Date Encounter Id Patient Instructions Last Modified By Organization Details Last Modified Time 09/01/2022 [id number] Health Education and Guidance jenz Not available [...] 80-140 = normal Not Available [address] [place], [address], 09/01/2022 13:24:27 09/01/19 23 09/01/2022 gluco se, jime rstic k, blood blood sugar - fasting mg/dL 80-125 = normal Not Available [facility] [address] [place], [phone], 09/01/2022 13:24:27 Result Notes None recorded. Problems [...] SNOMED-CT Code Diagnosis ICD10 Code Diagnosis Note [id number] [address] [place] [phone] 12/29/2021 16:21:44 12/29/2021 16:55:03 [id number] [place] [address] [facility] [address] [place] [address] 09/01/2022 11:38:27 09/01/2022 14:06:01 History and physical examination, pre-employment [id number] Z02.1 Diabetes m ellitus screening [id number] Z13.1 Health Concerns Section Related Observation LastModified [...]
--- OUTSIDE RECORDS SUMMARY | 2024-09-27 15:00 | XMS_ITS | Clinical Summary ---
Author Organization [employer] Address [address] [facility] [address] [place] [address] Care Team Providers Care Software Applications Developer Name Role Phone Unavailable Primary Care Provider [...] Insurance [address] [place] [address] [place] [phone] [facility] [address] [place] [address] [facility] STAND ADULT [address] [place] [id number] [address] [place] [id number] [address] [facility] [place] [id number]
--- OUTSIDE RECORDS SUMMARY | 2024-09-27 15:00 | XMS_ITS | Continuity of Care Document ---
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 [address] [facility], [address], [id number] , [place]. tel: [phone] Referring Provider: David Covarrubias, [facility] [address], [place], [address]. tel:[phone] [facility], [address] [place] [address], [place], [id number], [place] tel: [phone] [facility] Varicose Veins With InflammationVen ous insufficiency, ChronicSwelling of limbPostphlebet ic syndrome with inflammation Sep-0 4 3 Viviane Rodriguez. [address] [facility], Ivan [address] [place] [address], [id number] . tel: [phone] OFFICE/OUTPA TIENT VISIT, [facility], [facility] [address], [place], [id number], [place] tel: [phone] [place] 3 Varicose Veins With Inflammation Jan- 3 Geexon Dann er. [address] [facility], [facility] [address], [place], [id number] , [place]. tel: [phone] Referring Provider: David Covarrubias, [facility] [address], [address]. tel:[phone] [facility], [address] [place], [place] [address], [place], [id number], [place] tel:[phone] Procedure No Information 3 Catie Quigley er. [address], [id number] , . tel: [phone] Referring Provider: David Covarrubias, [address] [place] [address], [phone]. tel:[phone] OFFICE/OUTPA TIENT VISIT, [facility], [address] [place] [address], [id number], tel: [phone] [place] 3 Varicose Veins With Inflammation Nov- 2- 3 Wixtatum Quigley er. [address] [place] [address], [id number] , [place]. tel: [phone] Referring Provider: David Covarrubias, [address] [place] [address], [address]. tel:[phone] OFFICE/OUTPA TIENT VISIT, [facility], [address] [place] [address], [id number], tel: [phone] [place] 3 Postphlebetic syndrome with inflammation Nov-0 3 Catie Quigley er. [address] [place] [address], [id number] , [place]. tel: [phone] Referring Provider: Hemal Miranda, [facility] [address] [place] [address], [address]. tel:[phone] [facility], [address] [place] [address], [id number], tel: [phone] [facility] No Information 0 3 Catie Quigley er. [address] [place] [address], [id number] , [place]. tel: [phone] Family History Family Member Type Diagnosis Age At Onset Family Hx of Problem (finding) Obesity Family Hx of Problem (finding) Varicose Veins Family Hx of Problem (finding) DVT Family Hx of Problem (finding) Diabetes mellitus Family Hx of Problem (finding) hypertension Payers Payer name Insurance type Covered green party ID Authorlamonta donnieon(s) [employer] PPO Medicare Plan CI [id number] Social History Type Description Quantity Date Captured [...]
--- OUTSIDE RECORDS SUMMARY | 2024-09-27 15:00 | XMS_ITS ---
Author Name [facility] Organization Unknown Results Test Name/Text Value Interpretation Date Range Source HIV 1+2 Ab+HIV1 p24 Ag Ser EIA-aCnc Normal [id number] - [facility] Globulin Ser Calc-mCnc 3.4g/dL Normal [id number] 1.5 - 3.9 [facility] ALT SerPl-cCnc 24U/L Normal [id number] 10 - 55 HH CCT AST SerPl-cCnc 37U/L Normal [id number] 10 - 55 HH CCT GFR/BSA.pred SerPlBld [id number] 90 Normal [id number] 59 - H[facility]CT Albumin SerPl-mCnc 4.1g/dL Normal [id number] 3.5 - 5 [facility] Albumin/Glob SerPl 1.2Ratio Normal [id number] [facility] Creat SerPl-mCnc 0.7mg/dL Normal [id number] 0.5 - 1.3 [facility]CT Bilirub SerPl-mCnc 0.6mg/dL Normal [id number] 0.2 - 1 [facility] Anion Gap Bld-sCnc 10 Normal [id number] 7 - 17 [facility] Sodium SerPl-sCnc 134mmol/L Below low normal [id number] 13 6 - 145 [facility] Potassium SerPl-sCnc 4.6mmol/L Normal [id number] 3.4 - 5.3 [facility] Chloride SerPl-sCnc 100mmol/L Normal [id number] 98 - 10 7 [facility] Glucose SerPl-mCnc 181mg/dL Above high normal [id number] 65 - 99 [facility] Prot SerPl-mCnc 7.5g/dL Normal [id number] 6.3 - 8.3 H HCCT BUN/Creat SerPl 20Ratio Normal [id number] 10 - 25 H [facility]CT Calcium SerPl-mCnc 9.7mg/dL Normal [id number] 8.7 - 10 .5 [facility] CO2 SerPl-sCnc 24mmol/L Normal [id number] 22 - 33 HH CCT BUN SerPl-mCnc 14mg/dL Normal [id number] 8 - 21 HH CCT ALP SerPl-cCnc 56U/L Normal [id number] 45 - 128 HH CCT Magnesium SerPl-mCnc 2mg/dL Normal [id number] 1.6 - 2.7 [facility] Imm Granulocytes/leuk NFr Bld Auto 0.4% Normal [id number] [facility] Lymphocytes/leuk NFr Bld Auto 18.9% Normal [id number] [facility] PMV Bld Auto 9.3fL Normal [id number] 7.5 - 12.[address] Monocytes num Bld Auto 0.45Thou/uL Normal [id number] 0. 2 - 1.5 [facility] Hct VFr Bld Auto 45% Normal [id number] 39 - 54 [facility] Neutrophils num Bld Auto 5.37Thou/uL Normal [id number] 2 - 7.5 [facility] Neutrophils/leuk NFr Bld Auto 72.8% Normal [id number] [facility] Basophils/leuk NFr Bld Auto 0.7% Normal [id number] [facility] Basophils num Bld Auto 0.05Thou/uL Normal [id number] 0 - 0.2 [facility] Monocytes/leuk NFr Bld Auto 6.1% Normal [id number] [facility] Eosinophil num Bld Auto 0.08Thou/uL Normal [id number] 0 - 0.7 [facility] MCH RBC Qn Auto 30.6pg Normal [id number] 27 - 31 H [facility] Eosinophil/leuk NFr Bld Auto 1.1% Normal [id number] [facility] Imm Granulocytes num Bld Auto 0.03Thou/uL Normal [id number] 0 - 0.1 [facility] RDW RBC Auto-Rto 12.8% Normal [id number] 11.5 - 14. 5 [facility] Platelet num Bld Auto 221Thou/uL Normal [id number] 150 - 450 [facility]CT MCHC RBC Auto-mCnc 33.1g/dL Normal [id number] 30 - 36 [facility] MCV RBC Auto 92fL Normal [id number] 80 - 100 [facility] T WBC num Bld Auto 7.4Thou/uL Normal [id number] 4 - 11 [facility] RBC num Bld Auto 4.87Mil/uL Normal [id number] 4.5 - 6.2 [facility]CT Hgb Bld-mCnc 14.9g/dL Normal [id number] 13 - 17.7 HHCC T Lymphocytes num Bld Auto 1.39Thou/uL Below low normal [id number] 1.5 - 4.5 [facility] pro BNP, N-terminal 36pg/mL Normal [id number] - 125 [facility]CT Troponin T SerPl-mCnc 6ng/L Normal [id number] - 23 [facility] Delta Normal [id number] - 3 HHCCT D dimer FEU PPP-mCnc 150ng/mLDDU Normal [id number] - 23 0 [facility]CT Globulin Ser Calc-mCnc 3.5g/dL Normal [id number] 1.5 - 3.9 H[facility]CT ALT SerPl-cCnc 25U/L Normal [id number] 10 - 55 HH CCT AST SerPl-cCnc 32U/L Normal [id number] 10 - 55 HH CCT GFR/BSA.pred SerPlBld NIP-RKH-QeAPdz 90 Normal [id number] 59 - HHCCT Albumin SerPl-mCnc 4.1g/dL Normal [id number] 3.5 - 5 [facility]CT Albumin/Glob SerPl 1.2Ratio Normal [id number] H[facility]CT Creat SerPl-mCnc 0.8mg/dL Normal [id number] 0.5 - 1.3 HHCCT Bilirub SerPl-mCnc 0.4mg/dL Normal [id number] 0.2 - 1 [facility]CT Anion Gap Bld-sCnc 15 Normal [id number] 7 - 17 H[facility]CT Sodium SerPl-sCnc 136mmol/L Normal [id number] 136 - 145 [facility]CT Potassium SerPl-sCnc 4.4mmol/L Normal [id number] 3.4 - 5.3 [facility]CT Chloride SerPl-sCnc 100mmol/L Normal [id number] 98 - 10 7 [facility]CT Glucose SerPl-mCnc 194mg/dL Above high normal [id number] 65 - 99 [facility]CT Prot SerPl-mCnc 7.6g/dL Normal [id number] 6.3 - 8.3 H HCCT BUN/Creat SerPl 20Ratio Normal [id number] 10 - 25 H HCCT Calcium SerPl-mCnc 9mg/dL Normal [id number] 8.7 - 10 .5 [facility]CT CO2 SerPl-sCnc 21mmol/L Below low normal [id number] 22 - 33 [facility]CT BUN SerPl-mCnc 16mg/dL Normal [id number] 8 - 21 HH CCT ALP SerPl-cCnc 57U/L Normal [id number] 45 - 128 HH CCT Imm Granulocytes/leuk NFr Bld Auto 0.5% Normal [id number] H[facility]CT Lymphocytes/leuk NFr Bld Auto 16.3% Normal [id number] H[facility]CT PMV Bld Auto 9.1fL Normal [id number] 7.5 - 12.[address] Monocytes num Bld Auto 0.46Thou/uL Normal [id number] 0. 2 - 1.5 [facility]CT Hct VFr Bld Auto 42.6% Normal [id number] 39 - 54 [facility]CT Neutrophils num Bld Auto 7.16Thou/uL Normal [id number] 2 - 7.5 [facility]CT Neutrophils/leuk NFr Bld Auto 76.7% Normal [id number] H[facility]CT Basophils/leuk NFr Bld Auto 0.6% Normal [id number] [facility]CT Basophils num Bld Auto 0.06Thou/uL Normal [id number] 0 - 0.2 [facility]CT Monocytes/leuk NFr Bld Auto 4.9% Normal [id number] H[facility]CT Eosinophil num Bld Auto 0.09Thou/uL Normal [id number] 0 - 0.7 [facility]CT MCH RBC Qn Auto 30.6pg Normal [id number] 27 - 31 H HCCT Eosinophil/leuk NFr Bld Auto 1% Normal [id number] H[facility]CT Imm Granulocytes num Bld Auto 0.05Thou/uL Normal [id number] 0 - 0.1 H[facility]CT RDW RBC Auto-Rto 12.7% Normal [id number] 11.5 - 14. 5 [facility] Platelet num Bld Auto 227Thou/uL Normal [id number] 150 - 450 H[facility]CT MCHC RBC Auto-mCnc 33.8g/dL Normal [id number] 30 - 36 [facility]CT MCV RBC Auto 91fL Normal [id number] 80 - 100 [facility] T WBC num Bld Auto 9.3Thou/uL Normal [id number] 4 - 11 H[facility]CT RBC num Bld Auto 4.7Mil/uL Normal [id number] 4.5 - 6.2 HHCCT Hgb Bld-mCnc 14.4g/dL Normal [id number] 13 - 17.7 CC T Lymphocytes num Bld Auto 1.52Thou/uL Normal [id number] 1.5 - 4.5 HHCCT
[2024-09-27 15:01] LABS: Basophils Absolute Auto 0.1 X10*3/uL (0.0-0.2); Basophils Percent Auto 0.6 % (0-2); Eosinophils Absolute Auto 0.1 X10*3/uL (0.0-0.4); Eosinophils Percent Auto 1.5 % (0-4); Hematocrit 44.6 % (42.0-52.0); Hemoglobin 15.5 g/dl (14.0-18.0); Imm Gran Abs Auto 0.03 X10*3/uL (0.00-0.03); Imm Gran Pct Auto 0.4 % (0.0-0.4); Lymphocytes Percent Auto 25.1 % (20-40); Mean Corpuscular HGB Conc 34.8 g/dl (31.0-36.0); Mean Corpuscular Hemoglobin 30.5 pg (27.0-33.0); Mean Corpuscular Volume 87.8 fL (80.0-98.0); Mean Platelet Volume 9.1 fL (9.4-12.4); Monocytes Absolute Auto 0.5 X10*3/uL (0.1-1.2); Monocytes Percent Auto 6.5 % (2-11); Neutrophils Absolute Auto 5.2 x10*3/uL (2.0-8.3); Neutrophils Percent Auto 65.9 % (45-73); Platelet Count 225 X10*3/uL (160-400); Red Blood Count 5.08 X10*6/uL (4.60-5.80); Red Cell Distribution Width 12.7 % (11.0-16.0); White Blood Count 7.8 X10*3/uL (4.8-10.8)
[2024-09-27 15:27] LABS: Alanine Aminotransferase 29 U/L (0-40); Albumin Level 4.2 g/dL (3.5-5.0); Anion Gap 13 (12-20); Aspartate Amino Transferase 31 U/L (5-37); Bilirubin Total 0.5 mg/dL (0.0-1.0); Blood Urea Nitrogen 14 mg/dL (9-16); Calcium 9.6 mg/dL (8.4-10.2); Carbon Dioxide 26 mmol/L (22-29); Chloride 102 mmol/L (96-108); Creatinine Clr Calc Pharmacy 135.1; Estimated Glomerular Filt Rate > 60; Glucose Random 174 mg/dL (60-115); Potassium 4.3 mmol/L (3.3-5.1); Sodium 137 mmol/L (135-145); Total Protein 8.5 g/dL (6.5-8.0)
[2024-09-27 15:28] LABS: Troponin-I High Sensitivity < 2.7 ng/L (<3.5-35.0)
[2024-09-27 15:39] LABS: Influenza A PCR NEGATIVE (Negative); Influenza B PCR NEGATIVE (Negative); Resp Syncy Virus RNA Qual PCR NEGATIVE (Negative); SARS COV2 PCR INHOUSE NEGATIVE (Negative)
[2024-09-27 16:26] LABS: Alkaline Phosphatase 57 U/L (39-117)
[2024-09-27 19:57] VITALS: BP 168/106; PULSE 84; RESP 18; TEMP 36.5; O2SAT 99
[2024-09-27 20:31] VITALS: BP 168/106; PULSE 84; RESP 18; TEMP 36.5; O2SAT 99
== END 2024-09-27 20:32 | disposition home or self-care (01) ==
PROVIDERS: Physician Assistant Medical; Emergency Provider Emergency Medicine; PCP Internal Medicine
DX: I10 Essential (primary) hypertension (principal); E11.9 Type 2 diabetes mellitus without complications; E78.5 Hyperlipidemia, unspecified; Z03.818 Encounter for observation for suspected exposure to other biological agents ruled out
CPT/HCPCS: 0241U; 80053; 83735; 84484; 85025; 93005; 99283; 99284

== ENCOUNTER → 2024-09-27 14:39 | Outpatient (BNV) | payer MEDICARE, MEDICAID, SELFPAY | PROVIDERS: Emergency Provider Emergency Medicine; PCP Internal Medicine; Visit Provider Internal Medicine | DX: I44.0 Atrioventricular block, first degree (principal) | CPT/HCPCS: 93010 ==

== ENCOUNTER 2024-09-29 13:12 | Outpatient (AMB) | payer MEDICARE, MEDICAID, SELFPAY ==
[2024-09-29 13:15] VITALS: BP 142/94; PULSE 98; O2SAT 97; BMI 41.8
--- NOTE | 2024-09-29 13:15 | HO.NEPHOV_ITS ---
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: No Accompanied by: Self / Same As Patient Allergies A & D Allergy (Severe, Verified 09/29/24 13:16) anaphylaxis bacitracin [BACITRACIN] Allergy (Severe, Verified 09/29/24 13:16) SEIZURE , anaphylaxis Sulfa (Sulfonamide Antibiotics) Allergy (Mild, Verified 09/29/24 13:16) SWELLING adhesive tape Allergy (Verified 09/29/24 13:16) Rash atenolol Allergy (Verified 09/29/24 13:16) Heart block AV second degree gabapentin Allergy (Verified 09/29/24 13:16) Hives, elevated BP, leg twitching dapagliflozin [From Farxiga] Adverse Reaction (Intermediate, Verified 09/29/24 13:16) Abdominal Pain dulaglutide [From Trulicity] Adverse Reaction (Intermediate, Verified 09/29/24 13:16) Diarrhea, vomiting lisinopril Adverse Reaction (Intermediate, Verified 09/29/24 13:16) Dizziness lamotrigine Adverse Reaction (Verified 09/29/24 13:16) elevated BP, dizziness sweating tirzepatide [From Mounjaro] Adverse Reaction (Verified 09/29/24 13:16) Constipation losartan Allergy (Uncoded 09/18/24 13:50) feeling like he will pass out SSRI Adverse Reaction (Intermediate, Uncoded 09/18/24 13:49) DECREASE LIBIDO Medication List - Last Reconciled 09/29/24 by Guido Urbano MD amlodipine 2.5 mg PO DAILY blood sugar diagnostic ([employer]uch Ultra Test strips) test blood sugar once a day blood-glucose meter (Head[employer] Ultra2 Meter kit) As directed blood-glucose sensor (1SDK G7 Sensor device) As directed CPAP (CPAP Machine/Device) auto PAP 6-20 cm with heated humidification with needed supplies diphenhydramine HCl (Benadryl) 50 mg (2 x 25 mg) PO Q6H PRN lancets (Telecom ItaliaTouch UltraSoft Lancets) TID lancets ([employer] ItaliaTouch Delica Lancets) test blood sugar daily lancing device with lancets ([employer]uch Delica Lancing Device kit) testing blood sugar once daily meclizine 12.5 mg PO ONCE PRN metformin ER 1,500 mg PO DAILY simvastatin 40 mg PO DAILY warfarin 7.5 mg PO DAILY HPI Comments Details: 54-year-old man with a history of obesity and obstructive sleep apnea referred for management of hypertension. He has had hypertension for almost 4 years. Previously was on atenolol. He developed bradycardia therefore atenolol was discontinued. He was subsequently placed on losartan 50 mg. He has had episodes of low blood pressure. He was treated with gabapentin and developed a rash which was discontinued. Subsequently replace with Lamictal and he reacted to this as well which caused significant weakness. He had mild hyponatremia 133. Blood pressure spiked to 220 mm Hg systolic he was in the hospital. After discontinuing the medication blood pressure stabilized. He is here for further evaluation. History of factor 5 laden deficiency. He is on Coumadin. History of obesity 09/08/2024 Here for follow-up. Underwent 24 hour ABP M. He has been experiencing some itching and a feeling of tongue swelling while on losartan. No cough. 09/25/24 Doing better with Meclizine No further vertigo Still feels dizzy when he walks 09/29/2024. He continues to feel dizzy when he walks. Blood pressures spikes up when he walks. He was in the emergency room with a systolic blood pressure 180. [facility] Medical History (Updated 09/22/24 @ 17:10 by Erick Julien MD) Heart block AV second degree Hypertension DM type 2 (diabetes mellitus, type 2) Factor 5 Leiden mutation, heterozygous Vitamin B 12 deficiency Dizziness Annual physical exam Skin abnormalities STD (male) Venous (peripheral) insufficiency Obesity Hyperlipidemia PVD (peripheral vascular disease) DVT (deep venous thrombosis) SOB (shortness of breath) Surgical History Hx of esophagogastroduodenoscopy Hx of colonoscopy H/O vascular surgery Family History Father CVD (cardiovascular disease) Mother CVD (cardiovascular disease) Daughter No problems noted. Son No problems noted. Social History Household Members: Spouse and Significant Other Housing: House Are you a primary director career services to a significant other at home: No Do you presently have visiting nurse or other home services: No Unable to assess alcohol history related to: Unknown Patient Tobacco Use Status: Former Tobacco user Tobacco use type: Cigarette e-Cigarette/Vaping Use: Never Used Second Hand Smoke Exposure: No (none) service: No Current occupational status: employed Cognitive needs: No Hearing needs: No Vision needs: No Physical Exam Vital Signs: Last Vital Signs Pulse 98 09/29/24 13:15 BP 142/94 H 09/29/24 13:15 Pulse Ox 97 09/29/24 13:15 Oxygen Delivery Method Room Air 09/29/24 13:15 BMI result Body Mass Index 41.8 Supine blood pressure 110/60 sitting blood pressure 110/60 standing blood pressure 110/60. He was asymptomatic Comfortable Neck supple no JVD. Lungs entry equal no rales. Heart S1-S2 heard no gallop or rub. Abdomen soft nontender. Neuro alert awake oriented. No asterixis. Extremities no edema. Results Reviewed Nephrology Results: Hgb 15.6 g/dl (14.0-18.0) 08/27/24 WBC 9.3 X10*3/uL (4.8-10.8) 08/27/24 Plt Count 223 X10*3/uL (160-400) 08/27/24 Sodium 137 mmol/L (135-145) 08/27/24 Potassium 4.5 mmol/L (3.3-5.1) 08/27/24 Chloride 104 mmol/L (96-108) 08/27/24 Carbon Dioxide 26 mmol/L (22-29) 08/27/24 BUN 16 mg/dL (9-16) 08/27/24 Creatinine 0.83 mg/dL (0.5-1.4) 08/27/24 Calcium 9.9 mg/dL (8.4-10.2) 08/27/24 Assessment & Plan Assessment & Plan (1) Vertigo: Code(s): R42 - Dizziness and giddiness Category: Medical (2) Hypertension: Comment: Could not tolerate lisinopril causes dizziness, atenolol caused second-degree AV, losartan caused chest pain and itching, started on amlodipine 2.5 mg recently Code(s): I10 - Essential (primary) hypertension Category: Medical Qualifiers: Hypertension type: primary hypertension Qualified Code(s): I10 - Essential (primary) hypertension Plan 53-year-old man with obesity and obstructive sleep apnea with hypertension. Blood pressure well controlled at this time. He has had episodes of hypertension as well as blood pressure spikes. No orthostatic blood pressure changes today Encouraged stay on low-sodium diet continue to use CPAP regularly. 24 hour ABPM revealed well-controlled hypertension with nocturnal dipping. He had few episodes of low readings. Therefore I would lower his antihypertensive medication. Since he has had some sensation of tongue swelling with losartan - discontinued losartan. Replaced with amlodipine 2.5 mg. He is on simvastatin therefore I will keep her on a low dose of amlodipine. Repeat 24 hour ambulatory blood pressure monitoring since he reports of elevated blood pressure during activity. As for the vertigo I will refer him to ENT as well. Continue with meclizine for now Orders: Orders AMB 24 HR B/P Monitor PLACEMENT Today Guido Urbano MD I10 - Essential (primary) hypertension Referrals Ear/Nose/Throat Referral Guido Urbano MD R42 - Dizziness and giddiness Medications: Changed From meclizine 12.5 mg PO TID 2 weeks 40 tabs 0RF dizziness To meclizine 12.5 mg PO ONCE PRN Erick Julien MD Coding Level of Care Code Est Pt Level 4 (41797) Diagnoses Vertigo R42 Primary hypertension I10 Hypertension type: primary hypertension
--- OUTSIDE RECORDS SUMMARY | 2024-09-29 15:05 | XMS_ITS | Clinical Summary ---
Author Organization Formerly [facility] Address [address] [place] [address] Care Team Providers Care Marine Cargo Surveyor Name Role Phone Esha Corbin MD Primary Care Provider [phone] Allergies Active Allergy Reactions Criticality Noted Date Comments Bacitracin Anaphylaxis High 08/01/2024 Gabapentin Rash/Dermatitis Low 08/01/2024 Medications No known medications Encounters Date Type Department Care Team Description 08/02/2024 10:50 AM EST - 08/02/2024 2:36 PM EST Emergency [facility] Emergency Department [address] [place], [place] [phone] Roverto Henry DO Near syncope (Primary Dx); Muscle twitching Discharge Disposition: Home or Self Care 08/01/2024 7:52 PM EST - 08/02/2024 12:04 AM [facility] Emergency Department [address] [place] [phone] Wily Manning DO Near syncope (Primary Dx) [...] 4.0 - 11.0 Thou/uL 08/02/2024 12:17 PM [facility] Platelet Count 221 150 - 450 Thou/uL 08/02/2024 12:17 PM [facility] Hemoglobin 14.9 13.0 - 17.7 g/dL 08/02/2024 12:17 PM [facility] Hematocrit 45.0 39.0 - 54.0 % 08/02/2024 12:17 PM [facility] Red Blood Cell Count 4.87 4.50 - 6.20 Mil/uL 08/02/2024 12:17 PM [facility] MCV 92 80 - 100 fL 08/02/2024 12:17 PM [facility] MCH 30.6 27.0 - 31.0 pg 08/02/2024 12:17 PM [facility] MCHC 33.1 30.0 - 36.0 g/dL 08/02/2024 12:17 PM [facility] RDW 12.8 11.5 - 14.5 % 08/02/2024 12:17 PM [facility] MPV 9.3 7.5 - 12.5 fL 08/02/2024 12:17 PM [facility] Neutrophils Auto 72.8 % 08/02/20 12:17 PM [facility] Immature Granulocytes 0.4 % 08/02/2024 12:17 PM [facility] Lymphocytes Auto 18.9 % 08/02/20 12:17 PM [facility] Monocytes Auto 6.1 % 08/02/2024 12:17 PM [facility] Eosinophils Auto 1.1 % 08/02/20 12:17 PM [facility] Basophils Auto 0.7 % 08/02/2024 12:17 PM [facility] Abs Neutrophils Auto 5.37 2.00 - 7.50 Thou/uL 08/02/2024 12:17 PM [facility] Abs Immature Granulocytes 0.03 0.00 - 0.10 Thou/uL 08/02/2024 12:17 PM [facility] Abs Lymphocytes Auto 1.39(L) 1.50 - 4.50 Thou/uL 08/02/2024 12:17 PM [facility] Abs Monocytes Auto 0.45 0.20 - 1.50 Thou/uL 08/02/2024 12:17 PM [facility] Abs Eosinophils Auto 0.08 0.00 - 0.70 Thou/uL 08/02/2024 12:17 PM [facility] Abs Basophils Auto 0.05 0.00 - 0.20 Thou/uL 08/02/2024 12:17 PM [facility] Blood Blood specimen / Unknown 08/02/2024 11:49 AM EST 08/02/2024 12:09 PM EST Roverto Henry DO LAB BLOOD ORDERABLES [facility] [address] [place] [address], [place] [address] * Magnesium (08/02/2024 11:49 AM EST) Magnesium 2.0 1.6 - 2.7 mg/dL 08/02/2024 12:39 PM EST [facility] Blood (Plasma/Serum) 08/02/2024 11:49 AM EST 08/02/2024 12:10 PM EST Roverto Henry DO LAB BLOOD ORDERABLES Performing Organization Address City/[facility]/ZIP Co de Phone Number [facility] [address] [place] [address], [place] [address] * (ABNORMAL) Comprehensive Metabolic Panel (08/02/2024 11:49 AM EST) Only the most recent of2 resultswithin the time period is included. Glucose 181(H) 65 - 99 mg/dL 08/02/2024 12:39 PM [facility] Comment:Fasting: <100 mg/dL, Non-Fasting: <200 mg/dL (ADA 2004) Blood Urea Nitrogen (BUN) 14 8 - 21 mg/dL 08/02/2024 12:39 PM [facility] Creatinine 0.7 0.5 - 1.3 mg/dL 08/02/2024 12:39 PM [facility] eGFR >90 >59 08/02/2024 12:39 PM [facility] Comment:CKD-EPI (2020) in mL /min/1.73 sq meters. Sodium 134(L) 136 - 145 mmol/L 08/02/2024 12:39 PM [facility] Potassium 4.6 3.4 - 5.3 mmol/L 08/02/2024 12:39 PM [facility] Chloride 100 98 - 107 mmol/L 08/02/2024 12:39 PM [facility] CO2 24 22 - 33 mmol/L 08/02/2024 12:39 PM [facility] Calcium 9.7 8.7 - 10.5 mg/dL 08/02/2024 12:39 PM [facility] Alkaline Phosphatase 56 45 - 128 U/L 08/02/2024 12:39 PM [facility] Aspartate Aminotrans (AST) 37 10 - 55 U/L 08/02/2024 12:39 PM [facility] Alanine Aminotrans (ALT) 24 10 - 55 U/L 08/02/2024 12:39 PM [facility] Bilirubin, Total 0.6 0.2 - 1.0 mg/dL 08/02/2024 12:39 PM [facility] Protein, Total 7.5 6.3 - 8.3 g/dL 08/02/2024 12:39 PM [facility] Albumin 4.1 3.5 - 5.0 g/dL 08/02/2024 12:39 PM [facility] BUN/Creatinine Ratio 20 10.0 - 25.0 Ratio 08/02/2024 12:39 PM [facility] Globulin 3.4 1.5 - 3.9 g/dL 08/02/2024 12:39 PM EST [facility] Albumin/Globulin Ratio 1.2 Ratio 08/02/2024 12:39 PM EST [facility] Anion Gap 10 7 - 17 08/02/2024 12:39 PM EST [facility] Blood (Plasma/Serum) 08/02/2024 11:49 AM EST 08/02/2024 12:10 PM EST Rovertokushal Henry DO LAB BLOOD ORDERABLES [facility] [address] [place] [address], [facility] [address] [place] [address] * ECG 12 lead (08/02/2024 11:02 AM EST) Only the most recent of2 resultswithin the time period is included. Ventricular rate 69 BPM EKG [facility] Atrial rate 69 BPM EKG [facility] P-R interval 266 ms EKG [facility] QRS duration 72 ms EKG [facility] Q-T interval 382 ms EKG [facility] QTC calculation (Bazett) 409 ms EKG [facility] P axis 46 degrees EKG [facility] R axis -7 degrees G [facility] T axis 17 degrees [facility] 08/02/2024 11:0 2 AM EST Narrative EKG [facility] - 08/02/2024 1:37 PM EST Sinus rhythm with 1st degree A-V block Otherwise normal ECG When compared with ECG of 01-Aug-2024 20:24, (unconfirmed) No significant change was found Confirmed by MD Sandoval Katharine ([id number]) on 08/02/2024 1:37:41 PM Procedure Note Karen Sandoval MD - 08/03/2024 Sinus rhythm with 1st degree A-V block Otherwise normal ECG When compared with ECG of 01-Aug-2024 20:24, (unconfirmed) No significant change was found Confirmed by MD Sandoval Katharine ([id number]) on 08/02/2024 1:37:41 PM Wily Manning DO ECG ORDERABLES EKG [facility] * Troponin T, High Sensitivity (08/01/2024 9:39 PM EST) High Sensitivity Troponin T <6 <23 ng/L 08/01/2024 10:09 PM EST [facility] Delta (Change) NO PREVIOUS RESULT <3 08/01/2024 10:09 PM EST [facility] Blood (Plasma/Serum) 08/01/2024 9:39 PM EST 08/01/2024 9:46 PM EST Wily Manning DO LAB BLOOD ORDERABLES Performing Organization Address City/[facility]/ZIP Co de Phone [place] [address], [place] [address] * proBNP, N-terminal (08/01/2024 9:39 PM EST) Pathologist [facility] proBNP, N-terminal <36 <125 pg/mL 08/01/2024 10:09 PM EST [facility] Blood Plasma specimen / Unknown 08/01/2024 9:39 PM EST 08/01/2024 9:46 PM EST Wily Manning DO LAB BLOOD ORDERABLES Performing Organization Address City/[facility]/ZIP Co de Phone Number [facility] [address] [place] [address], [place] [address] * HIV 1/2 Ag/Ab CMIA Reflex to Confirmation (08/01/2024 9:39 PM EST) Pathologist [facility] HIV 1/2 Ag/Ab CMIA Nonreactive Nonreactive 08/04/2024 11:01 AM EST [facility] Comment: Results show no [...] EST Wily Manning DO LAB BLOOD ORDERABLES [facility] [address] [place] [address], * High Sensitiviry D-Dimer (all sites except [facility]) (08/01/2024 9:39 PM EST) [facility] High Sensitivity D-Dimer <150 <230 ng/mL DDU 08/01/2024 9:58 PM EST [facility] Comment: The threshold for exclusion of [...] DO LAB BLOOD ORDERABLES Performing Organization Address City/[facility]/ZIP Co de Phone Number [facility] [address] [place] [address], [facility] [address] [place] [address] * CT Head w/o contrast (08/01/2024 9:09 [...] ORDERABLES from Last 3 Months Care Teams Marine Cargo Surveyor Relationship Specialty Start Date End Date Esha Corbin MD [address] [facility] [place] [id number] PCP - General 08/01/24
--- OUTSIDE RECORDS SUMMARY | 2024-09-29 15:06 | XMS_ITS | Continuity of Care Document ---
Author Organization [facility] Address [address] [place] [address] Phone Care Team Providers Care Teacher Cclc Name Role Phone David Haddad MD, FACS [...] Providers Copied on Encounter OFFICE/OUTPA TIENT VISIT, [facility], [address] [facility] [address], [place], [id number], [place] tel: [phone] [place] 3 Varicose Veins With Inflammation Sep-0 6 3 Wixon Dann er. 4750 [facility], [address], [id number] , [place]. tel: [phone] Referring Provider: David Covarrubias, [facility] [address], [place], [address]. tel:[phone] [facility], [address] [place] [address], [place], [id number], [place] tel: [phone] [facility] Varicose Veins With InflammationVen ous insufficiency, ChronicSwelling of limbPostphlebet ic syndrome with inflammation Sep-0 4 3 Viviane Rodriguez. 4750 [facility], Ivan [address] [place] [address], [id number] . tel: [phone] OFFICE/OUTPA TIENT VISIT, [facility], [facility]0 [facility] [address], [place], [id number], [place] tel: [phone] [place] 3 Varicose Veins With Inflammation Jan- 3 Geexon Dann er. 4750 [facility], [facility] [address], [place], [id number] , [place]. tel: [phone] Referring Provider: David Covarrubias, [facility]0 [address], [address]. tel:[phone] [facility], [address] [place], [place] [address], [place], [id number], [place] tel:[phone] Procedure No Information 3 Catie Quigley er. [address], [id number] , . tel: [phone] Referring Provider: David Covarrubias, [address] [place] [address], [address]. tel:[phone] OFFICE/OUTPA TIENT VISIT, [facility], [address] [place] [address], [id number], tel: [phone] [place] 3 Varicose Veins With Inflammation Nov- 2- 3 Wixtatum Quigley er. [address] [place] [address], [id number] , [place]. tel: [phone] Referring Provider: David Covarrubias, [address] [place] [address], [id number]. tel:[phone] OFFICE/OUTPA TIENT VISIT, [facility], [address] [place] [address], [id number], tel: [phone] [place] 3 Postphlebetic syndrome with inflammation Nov-0 3 Catie Quigley er. [address] [place] [address], [id number] , [place]. tel: [phone] Referring Provider: Hemal Miranda, [facility]6 [facility] [address] [place] [address], [address]. tel:[phone] [facility], [address] [place] [address], [id number], tel: [phone] [facility] No Information 0 3 Catie Quigley er. [address] [place] [address], [id number] , [place]. tel: [phone] Family History Family Member Type Diagnosis Age At Onset Family Hx of Problem (finding) Obesity Family Hx of Problem (finding) Varicose Veins Family Hx of Problem (finding) DVT Family Hx of Problem (finding) Diabetes mellitus Family Hx of Problem (finding) hypertension Payers Payer name Insurance type Covered libertarian ID Authorlamonta donnieon(s) [employer] Choice PPO Medicare Plan CI [id number] Social History Type Description Quantity Date Captured [...]
--- OUTSIDE RECORDS SUMMARY | 2024-09-29 15:06 | XMS_ITS | Clinical Summary ---
Author Organization [employer] Address [address] [facility] 7t [place] [address] Care Team Providers Care Market Reporter Name Role Phone Unavailable Primary Care Provider [...] Insurance [address] [place] [id number] MEDICARE [facility] [address] [place] [address] [facility] MEDICAID STAND ADULT [address] [place] [id number] [address] [place] [id number] [address] [facility] [place] [id number]
--- OUTSIDE RECORDS SUMMARY | 2024-09-29 15:06 | XMS_ITS | Data Portability ---
Author Organization [facility], [address] Address [address] [place] [address] Assessment No assessment recorded. Plan of Treatment Reminders Order Date Submit Date Provider Last Modified By Organization Details Last Modified Time Details Appointments None recorde d. Lab glucose , fingers tick, blood 023 09/01/19jenz3 [facility], [address] [place], [address], 13:59:19 Referral None recorde d. Procedures None recorde d. Surgeries None recorde d. Imaging None recorde d. Medication Orders None recorde d. Patient TargetsNo targets recorded. Patient Instructions Encounter Date Encounter Id Patient Instructions Last Modified By Organization Details Last Modified Time 09/01/2022 [id number] Health Education and Guidance jenz Not available [...] 80-140 = normal Not Available [address] [place], [address], 09/01/2022 13:24:27 09/01/19 23 09/01/2022 gluco se, jime rstic k, blood blood sugar - fasting mg/dL 80-125 = normal Not Available [facility] [address] [place], [address], 09/01/2022 13:24:27 Result Notes None recorded. Problems [...] SNOMED-CT Code Diagnosis ICD10 Code Diagnosis Note [id number] [place] [address] 12/29/2021 16:21:44 12/29/2021 16:55:03 [id number] [place] [id number] [facility] [address] [place] [address] 09/01/2022 11:38:27 09/01/2022 14:06:01 History and physical examination, pre-employment [id number] Z02.1 Diabetes m ellitus screening [id number] Z13.1 Health Concerns Section Related Observation LastModified [...]
== END 2024-09-29 13:41 | disposition home or self-care (01) ==
LOC: HO.HKA 13:12
PROVIDERS: PCP Internal Medicine; Visit Provider Internal Medicine Hypertension Specialist
DX: R42 Dizziness and giddiness (principal); I10 Essential (primary) hypertension
CPT/HCPCS: 99214

== ENCOUNTER → 2024-09-29 13:12 | Outpatient (BNVA) | payer MEDICARE, MEDICAID, SELFPAY | PROVIDERS: PCP Internal Medicine; Visit Provider Internal Medicine Hypertension Specialist | DX: R42 Dizziness and giddiness (principal); I10 Essential (primary) hypertension | CPT/HCPCS: 99212 ==

== ENCOUNTER → 2024-09-30 14:01 | Outpatient (BNVA) | payer MEDICARE, MEDICAID, SELFPAY | PROVIDERS: PCP Internal Medicine; Visit Provider Internal Medicine Hypertension Specialist | DX: I10 Essential (primary) hypertension (principal); E66.9 Obesity, unspecified; G47.33 Obstructive sleep apnea (adult) (pediatric); R42 Dizziness and giddiness; Z79.01 Long term (current) use of anticoagulants | CPT/HCPCS: 93786; 93788; 99212 ==

== ENCOUNTER 2024-09-30 14:32 | Outpatient (AMB) | payer MEDICARE, MEDICAID, SELFPAY ==
--- NOTE | 2024-09-30 14:31 | HO.NEPHOV_ITS ---
Vital Signs 09/30/24 14:31 Height 5 ft 9 in Intake Visit Reasons: BPM Interpretation Financial Aid Manager Required: No Accompanied by: Spouse Allergies A & D Allergy (Severe, Verified 09/30/24 14:31) anaphylaxis bacitracin [BACITRACIN] Allergy (Severe, Verified 09/30/24 14:31) SEIZURE , anaphylaxis Sulfa (Sulfonamide Antibiotics) Allergy (Mild, Verified 09/30/24 14:31) SWELLING adhesive tape Allergy (Verified 09/30/24 14:31) Rash atenolol Allergy (Verified 09/30/24 14:31) Heart block AV second degree gabapentin Allergy (Verified 09/30/24 14:31) Hives, elevated BP, leg twitching dapagliflozin [From Farxiga] Adverse Reaction (Intermediate, Verified 09/30/24 14:31) Abdominal Pain dulaglutide [From Trulicity] Adverse Reaction (Intermediate, Verified 09/30/24 14:31) Diarrhea, vomiting lisinopril Adverse Reaction (Intermediate, Verified 09/30/24 14:31) Dizziness lamotrigine Adverse Reaction (Verified 09/30/24 14:31) elevated BP, dizziness sweating tirzepatide [From Mounjaro] Adverse Reaction (Verified 09/30/24 14:31) Constipation losartan Allergy (Uncoded 09/18/24 13:50) feeling like he will pass out SSRI Adverse Reaction (Intermediate, Uncoded 09/18/24 13:49) DECREASE LIBIDO Medication List - Last Reconciled 09/30/24 by Guido Urbano MD amlodipine 2.5 mg PO DAILY blood sugar diagnostic ([employer] Ultra Test strips) test blood sugar once a day blood-glucose meter ([employer] Ultra2 Meter kit) As directed blood-glucose sensor ([employer] G7 Sensor device) As directed CPAP (CPAP Machine/Device) auto PAP 6-20 cm with heated humidification with needed supplies diphenhydramine HCl (Benadryl) 50 mg (2 x 25 mg) PO Q6H PRN lancets ([employer] UltraSoft Lancets) TID lancets ([employer] Delica Lancets) test blood sugar daily lancing device with lancets ([employer] Delica Lancing Device kit) testing blood sugar once daily meclizine 12.5 mg PO ONCE PRN metformin ER 1,500 mg PO DAILY simvastatin 40 mg PO DAILY warfarin 7.5 mg PO DAILY HPI Comments Details: 54-year-old man with a history of obesity and obstructive sleep apnea referred for management of hypertension. He has had hypertension for almost 4 years. Previously was on atenolol. He developed bradycardia therefore atenolol was discontinued. He was subsequently placed on losartan 50 mg. He has had episodes of low blood pressure. He was treated with gabapentin and developed a rash which was discontinued. Subsequently replace with Lamictal and he reacted to this as well which caused significant weakness. He had mild hyponatremia 133. Blood pressure spiked to 220 mm Hg systolic he was in the hospital. After discontinuing the medication blood pressure stabilized. He is here for further evaluation. History of factor 5 laden deficiency. He is on Coumadin. History of obesity 09/08/2024 Here for follow-up. Underwent 24 hour ABPM. He has been experiencing some itching and a feeling of tongue swelling while on losartan. No cough. 09/25/24 Doing better with Meclizine No further vertigo Still feels dizzy when he walks 09/29/2024. He continues to feel dizzy when he walks. Blood pressures spikes up when he walks. He was in the emergency room with a systolic blood pressure 180. [facility] Medical History (Updated 09/22/24 @ 17:10 by Erick Julien MD) Heart block AV second degree Hypertension DM type 2 (diabetes mellitus, type 2) Factor 5 Leiden mutation, heterozygous Vitamin B 12 deficiency Dizziness Annual physical exam Skin abnormalities STD (male) Venous (peripheral) insufficiency Obesity Hyperlipidemia PVD (peripheral vascular disease) DVT (deep venous thrombosis) SOB (shortness of breath) Surgical History Hx of esophagogastroduodenoscopy Hx of colonoscopy H/O vascular surgery Family History Father CVD (cardiovascular disease) Mother CVD (cardiovascular disease) Daughter No problems noted. Son No problems noted. Social History Household Members: Spouse and Significant Other Housing: House Are you a primary home day care provider to a significant other at home: No Do you presently have visiting nurse or other home services: No Unable to assess alcohol history related to: Unknown Patient Tobacco Use Status: Former Tobacco user Tobacco use type: Cigarette e-Cigarette/Vaping Use: Never Used Second Hand Smoke Exposure: No (none) service: No Current occupational status: employed Cognitive needs: No Hearing needs: No Vision needs: No Office Procedures 24 B/P Monitor Interpretation Details: No white coat effect. No nocturnal dipping. CPT: 42313 24 Hour Blood Pressure Monitor Reading Procedure code (CPT) selection complete Results Reviewed Nephrology Results: No Data to Display Assessment & Plan Assessment & Plan (1) Vertigo: Code(s): R42 - Dizziness and giddiness Category: Medical (2) Hypertension: Comment: Could not tolerate lisinopril causes dizziness, atenolol caused second-degree AV, losartan caused chest pain and itching, started on amlodipine 2.5 mg recently Code(s): I10 - Essential (primary) hypertension Category: Medical Qualifiers: Hypertension type: primary hypertension Qualified Code(s): I10 - Essential (primary) hypertension Plan 53-year-old man with obesity and obstructive sleep apnea with hypertension. Blood pressure well controlled at this time. He has had episodes of hypertension as well as blood pressure spikes. No orthostatic blood pressure changes today Encouraged stay on low-sodium diet continue to use CPAP regularly. 24 hour ABPM revealed well-controlled hypertension with nocturnal dipping. He had few episodes of low readings. Therefore I would lower his antihypertensive medication. Since he has had some sensation of tongue swelling with losartan - discontinued losartan. Replaced with amlodipine 2.5 mg. He is on simvastatin therefore I will keep her on a low dose of amlodipine. 09/28/2024. Repeat 24 hour blood pressure monitor revealed normal blood pressure readings while at rest. When he is up and walking systolic blood pressure increases as high as 180 year 190 mm Hg. I will add hydralazine 10 mg p.o. p.r.n. to be used during daytime Orders: Orders 2 AMB 24 HR B/P Monitor INTERPRETATION Today I10 - Essential (primary) hypertension Medications: New hydralazine 10 mg PO DAILY 30 tabs 0RF Coding Level of Care Code Est Pt Level 3 (23204) Diagnoses Vertigo R42 Primary hypertension I10 Hypertension type: primary hypertension CPT Codes - CPT: 91759 24 Hour Blood Pressure Monitor Reading ([id number])
--- OUTSIDE RECORDS SUMMARY | 2024-09-30 18:13 | XMS_ITS | Clinical Summary ---
Author Organization [facility] Address [address] [place] [address] Care Team Providers Care Siebel Consultant Name Role Phone Esha Corbin MD Primary Care Provider [phone] Allergies Active Allergy Reactions Criticality Noted Date Comments Bacitracin Anaphylaxis High 08/01/2024 Gabapentin Rash/Dermatitis Low 08/01/2024 Medications No known medications Encounters Date Type Department Care Team Description 08/02/2024 10:50 AM EST - 08/02/2024 2:36 PM EST Emergency [facility] Emergency Department [address] [place], [place] [address] Roverto Henry DO Near syncope (Primary Dx); Muscle twitching Discharge Disposition: Home or Self Care 08/01/2024 7:52 PM EST - 08/02/2024 12:04 AM [facility] Emergency Department [address] [place] [phone] Wily Manning DO Near syncope (Primary Dx) [...] 4.0 - 11.0 Thou/uL 08/02/2024 12:17 PM [facility] Platelet Count 221 150 - 450 Thou/uL 08/02/2024 12:17 PM [facility] Hemoglobin 14.9 13.0 - 17.7 g/dL 08/02/2024 12:17 PM [facility] Hematocrit 45.0 39.0 - 54.0 % 08/02/2024 12:17 PM [facility] Red Blood Cell Count 4.87 4.50 - 6.20 Mil/uL 08/02/2024 12:17 PM [facility] MCV 92 80 - 100 fL 08/02/2024 12:17 PM [facility] MCH 30.6 27.0 - 31.0 pg 08/02/2024 12:17 PM [facility] MCHC 33.1 30.0 - 36.0 g/dL 08/02/2024 12:17 PM [facility] RDW 12.8 11.5 - 14.5 % 08/02/2024 12:17 PM [facility] MPV 9.3 7.5 - 12.5 fL 08/02/2024 12:17 PM [facility] Neutrophils Auto 72.8 % 08/02/20 12:17 PM [facility] Immature Granulocytes 0.4 % 08/02/2024 12:17 PM [facility] Lymphocytes Auto 18.9 % 08/02/20 12:17 PM [facility] Monocytes Auto 6.1 % 08/02/2024 12:17 PM [facility] Eosinophils Auto 1.1 % 08/02/20 12:17 PM [facility] Basophils Auto 0.7 % 08/02/2024 12:17 PM [facility] Abs Neutrophils Auto 5.37 2.00 - 7.50 Thou/uL 08/02/2024 12:17 PM [facility] Abs Immature Granulocytes 0.03 0.00 - 0.10 Thou/uL 08/02/2024 12:17 PM [facility] Abs Lymphocytes Auto 1.39(L) 1.50 - 4.50 Thou/uL 08/02/2024 12:17 PM [facility] Abs Monocytes Auto 0.45 0.20 - 1.50 Thou/uL 08/02/2024 12:17 PM [facility] Abs Eosinophils Auto 0.08 0.00 - 0.70 Thou/uL 08/02/2024 12:17 PM [facility] Abs Basophils Auto 0.05 0.00 - 0.20 Thou/uL 08/02/2024 12:17 PM [facility] Blood Blood specimen / Unknown 08/02/2024 11:49 AM EST 08/02/2024 12:09 PM EST Roverto Henry DO LAB BLOOD ORDERABLES [facility] [address] [place] [address], [place] [address] * Magnesium (08/02/2024 11:49 AM EST) Magnesium 2.0 1.6 - 2.7 mg/dL 08/02/2024 12:39 PM EST [facility] Blood (Plasma/Serum) 08/02/2024 11:49 AM EST 08/02/2024 12:10 PM EST Roverto Henry DO LAB BLOOD ORDERABLES Performing Organization Address City/[facility]/ZIP Co de Phone Number [facility] [address] [place] [address], [place] [address] * (ABNORMAL) Comprehensive Metabolic Panel (08/02/2024 11:49 AM EST) Only the most recent of2 resultswithin the time period is included. Glucose 181(H) 65 - 99 mg/dL 08/02/2024 12:39 PM [facility] Comment:Fasting: <100 mg/dL, Non-Fasting: <200 mg/dL (ADA 2004) Blood Urea Nitrogen (BUN) 14 8 - 21 mg/dL 08/02/2024 12:39 PM [facility] Creatinine 0.7 0.5 - 1.3 mg/dL 08/02/2024 12:39 PM [facility] eGFR >90 >59 08/02/2024 12:39 PM [facility] Comment:CKD-EPI (2020) in mL /min/1.73 sq meters. Sodium 134(L) 136 - 145 mmol/L 08/02/2024 12:39 PM [facility] Potassium 4.6 3.4 - 5.3 mmol/L 08/02/2024 12:39 PM [facility] Chloride 100 98 - 107 mmol/L 08/02/2024 12:39 PM [facility] CO2 24 22 - 33 mmol/L 08/02/2024 12:39 PM [facility] Calcium 9.7 8.7 - 10.5 mg/dL 08/02/2024 12:39 PM [facility] Alkaline Phosphatase 56 45 - 128 U/L 08/02/2024 12:39 PM [facility] Aspartate Aminotrans (AST) 37 10 - 55 U/L 08/02/2024 12:39 PM [facility] Alanine Aminotrans (ALT) 24 10 - 55 U/L 08/02/2024 12:39 PM [facility] Bilirubin, Total 0.6 0.2 - 1.0 mg/dL 08/02/2024 12:39 PM [facility] Protein, Total 7.5 6.3 - 8.3 g/dL 08/02/2024 12:39 PM [facility] Albumin 4.1 3.5 - 5.0 g/dL 08/02/2024 12:39 PM [facility] BUN/Creatinine Ratio 20 10.0 - 25.0 Ratio 08/02/2024 12:39 PM [facility] Globulin 3.4 1.5 - 3.9 g/dL 08/02/2024 12:39 PM EST [facility] Albumin/Globulin Ratio 1.2 Ratio 08/02/2024 12:39 PM EST [facility] Anion Gap 10 7 - 17 08/02/2024 12:39 PM EST [facility] Blood (Plasma/Serum) 08/02/2024 11:49 AM EST 08/02/2024 12:10 PM EST Rovertokushal Henry DO LAB BLOOD ORDERABLES [facility] [address] [place] [address], [facility] [address] [place] [address] * ECG 12 lead (08/02/2024 11:02 AM EST) Only the most recent of2 resultswithin the time period is included. Ventricular rate 69 BPM EKG [facility] Atrial rate 69 BPM EKG [facility] P-R interval 266 ms EKG [facility] QRS duration 72 ms EKG [facility] Q-T interval 382 ms EKG [facility] QTC calculation (Bazett) 409 ms EKG [facility] P axis 46 degrees EKG [facility] R axis -7 degrees G [facility] T axis 17 degrees [facility] 08/02/2024 11:0 2 AM EST Narrative EKG [facility] - 08/02/2024 1:37 PM EST Sinus rhythm with 1st degree A-V block Otherwise normal ECG When compared with ECG of 01-Aug-2024 20:24, (unconfirmed) No significant change was found Confirmed by MD Sandoval Katharine ([id number]) on 08/02/2024 1:37:41 PM Procedure Note Karen Sandoval MD - 08/03/2024 Sinus rhythm with 1st degree A-V block Otherwise normal ECG When compared with ECG of 01-Aug-2024 20:24, (unconfirmed) No significant change was found Confirmed by MD Sandoval Katharine ([id number]) on 08/02/2024 1:37:41 PM Wily Manning DO ECG ORDERABLES EKG [facility] * Troponin T, High Sensitivity (08/01/2024 9:39 PM EST) High Sensitivity Troponin T <6 <23 ng/L 08/01/2024 10:09 PM EST [facility] Delta (Change) NO PREVIOUS RESULT <3 08/01/2024 10:09 PM EST [facility] Blood (Plasma/Serum) 08/01/2024 9:39 PM EST 08/01/2024 9:46 PM EST Wily Manning DO LAB BLOOD ORDERABLES Performing Organization Address City/[facility]/[place] [address], [place] [address] * proBNP, N-terminal (08/01/2024 9:39 PM EST) Pathologist [facility] proBNP, N-terminal <36 <125 pg/mL 08/01/2024 10:09 PM EST [facility] Blood Plasma specimen / Unknown 08/01/2024 9:39 PM EST 08/01/2024 9:46 PM EST Wily Manning DO LAB BLOOD ORDERABLES Performing Organization Address City/[facility]/ZIP Co de Phone Number [facility] [address] [place] [address], [place] [address] * HIV 1/2 Ag/Ab CMIA Reflex to Confirmation (08/01/2024 9:39 PM EST) Pathologist [facility] HIV 1/2 Ag/Ab CMIA Nonreactive Nonreactive 08/04/2024 11:01 AM EST [facility] Comment: Results show no evidence [...] EST Wily Manning DO LAB BLOOD ORDERABLES [facility] [address] [place] [address], * High Sensitiviry D-Dimer (all sites except [facility]) (08/01/2024 9:39 PM EST) [facility] High Sensitivity D-Dimer <150 <230 ng/mL DDU 08/01/2024 9:58 PM EST [facility] Comment: The threshold for exclusion of [...] DO LAB BLOOD ORDERABLES Performing Organization Address City/[facility]/ZIP Co de Phone Number [facility] [address] [place] [address], [facility] [address] [place] [address] * CT Head w/o contrast (08/01/2024 9:09 [...] No acute cardiopulmonary findings. Wily Manning DO [facility] NG ORDERABLES from Last 3 Months Care Teams Siebel Consultant Relationship Specialty Start Date End Date Esha Corbin MD [address] [facility] [place] [id number] PCP - General 08/01/24
--- OUTSIDE RECORDS SUMMARY | 2024-09-30 18:13 | XMS_ITS | Continuity of Care Document ---
Author Organization [facility] Address [address] [place] [phone] Phone Care Team Providers Care Fountain Helper Name Role Phone David Haddad MD, FACS [...] Providers Copied on Encounter OFFICE/OUTPA TIENT VISIT, [facility], [address] [facility] [address], [place], [id number], [place] tel: [phone] [place] 3 Varicose Veins With Inflammation Sep-0 6 3 Wixon Dann er. [address]50 [facility], [address], [id number] , [place]. tel: [phone] Referring Provider: David Covarrubias, [facility] [address] [address], [place], [address]. tel:[phone] [facility], [address] [place] [address], [place], [id number], [place] tel: [phone] [facility] Varicose Veins With InflammationVen ous insufficiency, ChronicSwelling of limbPostphlebet ic syndrome with inflammation Sep-0 4 3 Viviane Rodriguez. 4750 [facility], Ivan [address] [place] [address], [id number] . tel: [phone] OFFICE/OUTPA TIENT VISIT, [facility], [facility] [address], [place], [id number], [place] tel: [phone] [place] 3 Varicose Veins With Inflammation Jan- 3 Geexon Dann er. [address] [facility], [facility] [address], [place], [id number] , [place]. tel: [phone] Referring Provider: David Covarrubias, [facility] [address], [address]. tel:[phone] [facility], [address] [place], [place] [address], [place], [id number], [place] tel:[phone] Procedure No Information 3 Catie Quigley er. [address], [id number] , . tel: [phone] Referring Provider: David Covarrubias, [address] [place] [address], [address]. tel:[phone] OFFICE/OUTPA TIENT VISIT, [facility], [address] [place] [address], [id number], tel: [phone] [place] 3 Varicose Veins With Inflammation Nov- 2- 3 Wixtatum Quigley er. [address] [place] [address], [id number] , [place]. tel: [phone] Referring Provider: David Covarrubias, [address] [place] [address], [address]. tel:[phone] OFFICE/OUTPA TIENT VISIT, [facility], [address] [place] [address], [id number], tel: [phone] [place] 3 Postphlebetic syndrome with inflammation Nov-0 3 Catie Quigley er. [address] [place] [address], [id number] , [place]. tel: [phone] Referring Provider: Hemal Miranda, [facility]6 [facility] [address] [place] [address], [address]. tel:[phone] [facility], [address] [place] [address], [id number], tel: [phone] [facility] No Information 0 3 Catie Quigley er. [address] [place] [address], [id number] , [place]. tel: [phone] Family History Family Member Type Diagnosis Age At Onset Family Hx of Problem (finding) Obesity Family Hx of Problem (finding) Varicose Veins Family Hx of Problem (finding) DVT Family Hx of Problem (finding) Diabetes mellitus Family Hx of Problem (finding) hypertension Payers Payer name Insurance type Covered constitution party ID Authorlamonta donnieon(s) [employer] Choice PPO Medicare Plan CI [id number] Social History Type Description Quantity Date Captured [...]
--- OUTSIDE RECORDS SUMMARY | 2024-09-30 18:13 | XMS_ITS | Clinical Summary ---
Author Organization [employer] Address [address] [facility] 7t [place] [address] Care Team Providers Care Community Living Specialist Name Role Phone Unavailable Primary Care Provider [...] Insurance [id number] [place] [id number] MEDICARE [facility] [address] [place] [address] [facility]AL[facility] MEDICAID STAND ADULT [address] [place] [id number] [address] [place] [address] [facility] [address] [place] [id number]
== END 2024-09-30 14:38 | disposition home or self-care (01) ==
LOC: HO.HKA 14:32
PROVIDERS: PCP Internal Medicine; Visit Provider Internal Medicine Hypertension Specialist
DX: R42 Dizziness and giddiness (principal); I10 Essential (primary) hypertension
CPT/HCPCS: 93790; 99213

== ENCOUNTER 2024-10-09 14:42 | Outpatient (AMB) | payer MEDICARE, MEDICAID, SELFPAY ==
[2024-10-09 15:31] VITALS: BP 134/80; PULSE 84; BMI 41.9
--- NOTE | 2024-10-09 15:31 | A.OFFVIS_ITS ---
Vital Signs 10/09/24 15:31 Height 5 ft 9 in Weight 283 lb 15.286 oz BMI 41.9 BP 134/80 Blood Pressure Location Lt brachial Position Sitting Pulse 84 Pulse Source Pulse Oximeter Intake Visit Reasons: high BP and dizziness Child Care Required: No Accompanied by: Self / Same As Patient Allergies A & D Allergy (Severe, Verified 10/09/24 14:29) anaphylaxis bacitracin [BACITRACIN] Allergy (Severe, Verified 10/09/24 14:29) SEIZURE , anaphylaxis losartan Allergy (Intermediate, Verified 10/09/24 14:29) Angioedema Sulfa (Sulfonamide Antibiotics) Allergy (Mild, Verified 10/09/24 14:29) SWELLING adhesive tape Allergy (Verified 10/09/24 14:29) Rash atenolol Allergy (Verified 10/09/24 14:29) Heart block AV second degree gabapentin Allergy (Verified 10/09/24 14:29) Hives, elevated BP, leg twitching dapagliflozin [From Farxiga] Adverse Reaction (Intermediate, Verified 10/09/24 14:29) Abdominal Pain dulaglutide [From Trulicity] Adverse Reaction (Intermediate, Verified 10/09/24 14:29) Diarrhea, vomiting lisinopril Adverse Reaction (Intermediate, Verified 10/09/24 14:29) Dizziness lamotrigine Adverse Reaction (Verified 10/09/24 14:29) elevated BP, dizziness sweating tirzepatide [From Mounjaro] Adverse Reaction (Verified 10/09/24 14:29) Constipation losartan Allergy (Uncoded 10/09/24 14:29) feeling like he will pass out SSRI Adverse Reaction (Intermediate, Uncoded 10/09/24 14:29) DECREASE LIBIDO Medication List - Last Reconciled 10/09/24 by Robson Mary NP amlodipine 2.5 mg PO DAILY blood sugar diagnostic (SmartStudy.com Ultra Test strips) test blood sugar once a day blood-glucose meter (SmartStudy.com Ultra2 Meter kit) As directed blood-glucose sensor (Magnolia Broadband G7 Sensor device) As directed CPAP (CPAP Machine/Device) auto PAP 6-20 cm with heated humidification with needed supplies diphenhydramine HCl (Benadryl) 50 mg (2 x 25 mg) PO Q6H PRN hydralazine 10 mg PO DAILY lancets (Par[employer] Gen[employer] UltraSoft Lancets) TID lancets (Outcomes [employer]orporated Lancets) test blood sugar daily lancing device with lancets ([employer] Lancing Device kit) testing blood sugar once daily meclizine 12.5 mg PO ONCE PRN metformin ER 1,500 mg PO DAILY simvastatin 40 mg PO DAILY warfarin 7.5 mg PO DAILY HPI Comments Details: This is a 54-year-old male patient presenting with complaints of chest pain. The patient was recently seen by Dr. Herrmann. He reports he has been having intermittent left-sided chest pain, describes as tightness. Patient notes that this occurs both with exertion and at rest. The patient has been following with Nephrology for labile blood pressures and has been experiencing dizziness at times when his blood pressures are elevated. However, he believes the chest pain is not related to this blood pressure issues. The patient also reports experiencing other side effects from past medications has been tried for blood pressure as well as his epilepsy including losartan lisinopril and Lamictal. The patient denies any other symptoms of palpitations, orthopnea, PND, leg edema, presyncope, or syncope. He states that he has been actively trying to lose weight and exercise as tolerated. [facility] Medical History (Updated 10/09/24 @ 16:45 by Robson Mary NP) Heart block AV second degree Hypertension DM type 2 (diabetes mellitus, type 2) Factor 5 Leiden mutation, heterozygous Vitamin B 12 deficiency Dizziness Annual physical exam Skin abnormalities STD (male) Venous (peripheral) insufficiency Obesity Hyperlipidemia PVD (peripheral vascular disease) DVT (deep venous thrombosis) SOB (shortness of breath) Surgical History Hx of esophagogastroduodenoscopy Hx of colonoscopy H/O vascular surgery Family History Father CVD (cardiovascular disease) Mother CVD (cardiovascular disease) Daughter No problems noted. Son No problems noted. Social History (Updated 10/09/24 @ 15:36 by Sonja Zhang CMA) Household Members: Spouse and Significant Other Housing: House Are you a primary primary health care nurse to a significant other at home: No Do you presently have visiting nurse or other home services: No Alcohol intake: former Patient Tobacco Use Status: Former Tobacco user Tobacco use type: Cigarette e-Cigarette/Vaping Use: Never Used Second Hand Smoke Exposure: No (none) service: No Current occupational status: employed Cognitive needs: No Hearing needs: No Vision needs: No Review of Systems Const Denies chills, Denies fatigue, Denies fever(s), Reports headache(s), Denies weight gain and Denies weight loss ENT Denies dizziness and Reports headache(s) Card Reports chest pain, Denies leg edema, Denies lightheadedness, Denies palpitations, Denies dyspnea on exertion, Denies orthopnea and Denies other Resp Denies cough and Denies dyspnea on exertion GI Denies hematochezia and Denies change in stool character Musc Denies abnormal gait, Denies muscle weakness, Denies numbness, Denies radiating pain into limb and Denies tingling Neuro Denies abnormal gait, Denies dizziness, Reports headache(s), Denies numbness and Denies tingling Endo Denies fatigue and Denies palpitations Physical Exam Vital Signs: Last Vital Signs Pulse 84 10/09/24 15:31 BP 134/80 10/09/24 15:31 BMI result Body Mass Index 41.9 Const General: cooperative, healthy appearing, comfortable and no acute distress Orientation/consciousness: patient oriented x3 HEENT Head: Yes normal to inspection Neck Neck: Yes normal visual inspection, Yes trachea midline and Yes supple Chest Chest palpation & inspection: normal inspection of the chest Resp Effort & Inspection: normal respiratory effort Auscultation: clear to auscultation bilaterally, no crackles, no rales, no rhonchi and no wheezes Cardio Jugular venous distension: no JVD Palpation: normal PMI Rate: regular rate Rhythm: regular rhythm Heart sounds: S1 normal heart sound present, S2 normal heart sound present, no click, no gallops, no murmurs and no rubs Peripheral pulses: Peripheral pulses 2+ throughout GI Inspection: Yes normal to inspection Palpation (GI): Soft to palpation Auscultation: normal bowel sounds Skin General skin exam: no rashes or lesions noted Neuro General: patient oriented x3 Extrem General: Yes normal to inspection, No no pedal edema and No calf tenderness Psych Appearance: grossly normal Mental Status: mental status grossly normal Speech and movement: Normal speech and movement present Assessment & Plan Assessment & Plan (1) Chest pain: Code(s): R07.9 - Chest pain, unspecified Category: Medical Plan: 04/01/2024-echo study showed a normal EF at 66%, severe septal asymmetric hypertrophy, mild calcification of the aortic valve, moderate mitral annular ca lcification, mild dilation of the sinuses of Valsalva at 4.75 cm. 04/17/2024-patient's myocardial perfusion study was normal. 05/30/2024-patient's Holter study showed sinus rhythm with an episode of Mobitz type 1 second-degree AV block. We will proceed with a myocardial perfusion study to evaluate for any ischemic changes. Last stress test, patient had some shortness of breath with the exercise portion of the test therefore if patient is unable to walk on the treadmill, we can switch to Lexiscan. We will also repeat an echocardiogram to look for wall motion or valvular dysfunction. (2) Heart block AV second degree: Comment: on Atenolol, admitted to [facility], resolved after stopping Atenolol 03/29 Code(s): I44.1 - Atrioventricular block, second degree Category: Medical Plan: Transient second-degree AV block that resolved after stopping atenolol therapy. No indication for pacemaker therapy at this point. (3) Hypertension: Comment: Could not tolerate lisinopril causes dizziness, atenolol caused second-degree AV, losartan caused chest pain and itching, started on amlodipine 2.5 mg recently Code(s): I10 - Essential (primary) hypertension Category: Medical Qualifiers: Hypertension type: primary hypertension Qualified Code(s): I10 - Essential (primary) hypertension Plan: Patient's blood pressure today has been well-controlled. Currently being followed by Nephrology for labile blood pressure, who recently started patient on hydralazine and amlodipine. Advised patient to continue with low-salt diet and adequate hydration. Emphasized on heart healthy diet, regular exercise, weight loss, and aggressive management of his vascular risk factors. (4) APOLLO (obstructive sleep apnea): Code(s): G47.33 - Obstructive sleep apnea (adult) (pediatric) Category: Medical Plan: Continue CPAP therapy. Advised patient to seek ER care in case of exertional chest pain not resolved with rest. In the interim, patient will call us with any questions or change in symptoms. This note was generated using voice recognition software. While every effort has been made to ensure accuracy and proper hot bread baker, there may be occasional errors that could affect the content or meaning of the described symptoms. Orders: Orders CA stress test Today R07.9 - Chest pain, unspecified NM cardiolite stress test Today R07.9 - Chest pain, unspecified CA echo transthoracic complete Today I10 - Essential (primary) hypertension, R07.9 - Chest pain, unspecified Coding Level of Care Code Est Pt Level 4 (59267) Diagnoses Chest pain R07.9 Heart block AV second degree I44.1 Primary hypertension I10 Hypertension type: primary hypertension APOLLO (obstructive sleep apnea) G47.33 Time Spent (min) 32 Comment Time spent in reviewing the chart, test results, assessment, counseling and documentation.
--- OUTSIDE RECORDS SUMMARY | 2024-10-09 18:07 | XMS_ITS | Clinical Summary ---
Author Organization [employer] Address [address] [facility] 7t [place] [address] Care Team Providers Care Dairy Equipment Mechanic Name Role Phone Unavailable Primary Care Provider [...] Insurance [address] [place] [id number] [place] [phone] [facility] [address] [place] [address] DENTAL-[facility] MEDICAID STAND ADULT [address] [place] [address] [address] [place] [address] [address] [facility] [id number]
--- OUTSIDE RECORDS SUMMARY | 2024-10-09 18:07 | XMS_ITS | Data Portability ---
Author Organization [employer], [address] Address [address] [place] [address] Assessment No assessment recorded. Plan of Treatment Reminders Order Date Submit Date Provider Last Modified By Organization Details Last Modified Time Details Appointments None recorde d. Lab glucose , fingers tick, blood 023 09/01/19jenz3 [facility] [address], [address] [place], [address], 13:59:19 Referral None recorde d. Procedures None recorde d. Surgeries None recorde d. Imaging None recorde d. Medication Orders None recorde d. Patient TargetsNo targets recorded. Patient Instructions Encounter Date Encounter Id Patient Instructions Last Modified By Organization Details Last Modified Time 09/01/2022 [id number] Health Education and Guidance jenz Not available [...] 80-140 = normal Not Available [address] [place], [address], 09/01/2022 13:24:27 09/01/19 23 09/01/2022 gluco se, jime rstic k, blood blood sugar - fasting mg/dL 80-125 = normal Not Available [address] [place], [address], 09/01/2022 13:24:27 Result Notes None recorded. Problems [...] SNOMED-CT Code Diagnosis ICD10 Code Diagnosis Note [id number] [address] [place] [address] 12/29/2021 16:21:44 12/29/2021 16:55:03 [id number] [place] [address] [facility] [address] [place] [address] 09/01/2022 11:38:27 09/01/2022 14:06:01 History and physical examination, pre-employment [id number] Z02.1 Diabetes m ellitus screening [id number] Z13.1 Health Concerns Section Related Observation LastModified by Organization Detai ls LastModified Time None Recorded Concern Status LastModified by Organization Details LastModified Time None Recorded Advance Directives Directive None Recorded Payers Encounter Date Sequence Insurance Name Policy Number Policy Duggan Covered Member ID Duggan Member ID Guarantor Name 09/01/2022 OC-ESCREEN Jameel Gallardo [employer] Jameel Gallardo
--- OUTSIDE RECORDS SUMMARY | 2024-10-09 18:07 | XMS_ITS | Clinical Summary ---
Author Organization [facility]ly [facility] Address [address] [place] [address] Care Team Providers Care Care Information Associate Name Role Phone Esha Corbin MD Primary Care Provider [phone] Allergies Active Allergy Reactions Criticality Noted Date Comments Bacitracin Anaphylaxis High 08/01/2024 Gabapentin Rash/Dermatitis Low 08/01/2024 Medications No known medications Encounters Date Type Department Care Team Description 08/02/2024 10:50 AM EST - 08/02/2024 2:36 PM EST Emergency [facility] Emergency Department [address] [place], [place] [address] Roverto Henry DO Near syncope (Primary Dx); Muscle twitching Discharge Disposition: Home or Self Care 08/01/2024 7:52 PM EST - 08/02/2024 12:04 AM [facility] Emergency Department [address] [place] [phone] Wily Manning DO Near syncope (Primary Dx) [...] 4.0 - 11.0 Thou/uL 08/02/2024 12:17 PM [facility] Platelet Count 221 150 - 450 Thou/uL 08/02/2024 12:17 PM [facility] Hemoglobin 14.9 13.0 - 17.7 g/dL 08/02/2024 12:17 PM [facility] Hematocrit 45.0 39.0 - 54.0 % 08/02/2024 12:17 PM [facility] Red Blood Cell Count 4.87 4.50 - 6.20 Mil/uL 08/02/2024 12:17 PM [facility] MCV 92 80 - 100 fL 08/02/2024 12:17 PM [facility] MCH 30.6 27.0 - 31.0 pg 08/02/2024 12:17 PM [facility] MCHC 33.1 30.0 - 36.0 g/dL 08/02/2024 12:17 PM [facility] RDW 12.8 11.5 - 14.5 % 08/02/2024 12:17 PM [facility] MPV 9.3 7.5 - 12.5 fL 08/02/2024 12:17 PM [facility] Neutrophils Auto 72.8 % 08/02/20 12:17 PM [facility] Immature Granulocytes 0.4 % 08/02/2024 12:17 PM [facility] Lymphocytes Auto 18.9 % 08/02/20 12:17 PM [facility] Monocytes Auto 6.1 % 08/02/2024 12:17 PM [facility] Eosinophils Auto 1.1 % 08/02/20 12:17 PM [facility] Basophils Auto 0.7 % 08/02/2024 12:17 PM [facility] Abs Neutrophils Auto 5.37 2.00 - 7.50 Thou/uL 08/02/2024 12:17 PM [facility] Abs Immature Granulocytes 0.03 0.00 - 0.10 Thou/uL 08/02/2024 12:17 PM [facility] Abs Lymphocytes Auto 1.39(L) 1.50 - 4.50 Thou/uL 08/02/2024 12:17 PM [facility] Abs Monocytes Auto 0.45 0.20 - 1.50 Thou/uL 08/02/2024 12:17 PM [facility] Abs Eosinophils Auto 0.08 0.00 - 0.70 Thou/uL 08/02/2024 12:17 PM [facility] Abs Basophils Auto 0.05 0.00 - 0.20 Thou/uL 08/02/2024 12:17 PM [facility] Blood Blood specimen / Unknown 08/02/2024 11:49 AM EST 08/02/2024 12:09 PM EST Roverto Henry DO LAB BLOOD ORDERABLES [facility] [address] [place] [address], [place] [address] * Magnesium (08/02/2024 11:49 AM EST) Magnesium 2.0 1.6 - 2.7 mg/dL 08/02/2024 12:39 PM EST [facility] Blood (Plasma/Serum) 08/02/2024 11:49 AM EST 08/02/2024 12:10 PM EST Roverto Henry DO LAB BLOOD ORDERABLES Performing Organization Address City/[facility]/ZIP Co de Phone Number [facility] [address] [place] [address], [place] [address] * (ABNORMAL) Comprehensive Metabolic Panel (08/02/2024 11:49 AM EST) Only the most recent of2 resultswithin the time period is included. Glucose 181(H) 65 - 99 mg/dL 08/02/2024 12:39 PM [facility] Comment:Fasting: <100 mg/dL, Non-Fasting: <200 mg/dL (ADA 2004) Blood Urea Nitrogen (BUN) 14 8 - 21 mg/dL 08/02/2024 12:39 PM [facility] Creatinine 0.7 0.5 - 1.3 mg/dL 08/02/2024 12:39 PM [facility] eGFR >90 >59 08/02/2024 12:39 PM [facility] Comment:CKD-EPI (2020) in mL /min/1.73 sq meters. Sodium 134(L) 136 - 145 mmol/L 08/02/2024 12:39 PM [facility] Potassium 4.6 3.4 - 5.3 mmol/L 08/02/2024 12:39 PM [facility] Chloride 100 98 - 107 mmol/L 08/02/2024 12:39 PM [facility] CO2 24 22 - 33 mmol/L 08/02/2024 12:39 PM [facility] Calcium 9.7 8.7 - 10.5 mg/dL 08/02/2024 12:39 PM [facility] Alkaline Phosphatase 56 45 - 128 U/L 08/02/2024 12:39 PM [facility] Aspartate Aminotrans (AST) 37 10 - 55 U/L 08/02/2024 12:39 PM [facility] Alanine Aminotrans (ALT) 24 10 - 55 U/L 08/02/2024 12:39 PM [facility] Bilirubin, Total 0.6 0.2 - 1.0 mg/dL 08/02/2024 12:39 PM [facility] Protein, Total 7.5 6.3 - 8.3 g/dL 08/02/2024 12:39 PM [facility] Albumin 4.1 3.5 - 5.0 g/dL 08/02/2024 12:39 PM [facility] BUN/Creatinine Ratio 20 10.0 - 25.0 Ratio 08/02/2024 12:39 PM [facility] Globulin 3.4 1.5 - 3.9 g/dL 08/02/2024 12:39 PM EST [facility] Albumin/Globulin Ratio 1.2 Ratio 08/02/2024 12:39 PM EST [facility] Anion Gap 10 7 - 17 08/02/2024 12:39 PM EST [facility] Blood (Plasma/Serum) 08/02/2024 11:49 AM EST 08/02/2024 12:10 PM EST Rovertokushal Henry DO LAB BLOOD ORDERABLES [facility] [address] [place] [address], [facility] [address] [place] [address] * ECG 12 lead (08/02/2024 11:02 AM EST) Only the most recent of2 resultswithin the time period is included. Ventricular rate 69 BPM EKG [facility] Atrial rate 69 BPM EKG [facility] P-R interval 266 ms EKG [facility] QRS duration 72 ms EKG [facility] Q-T interval 382 ms EKG [facility] QTC calculation (Bazett) 409 ms EKG [facility] P axis 46 degrees EKG [facility] R axis -7 degrees G [facility] T axis 17 degrees [facility] 08/02/2024 11:0 2 AM EST Narrative EKG [facility] - 08/02/2024 1:37 PM EST Sinus rhythm with 1st degree A-V block Otherwise normal ECG When compared with ECG of 01-Aug-2024 20:24, (unconfirmed) No significant change was found Confirmed by MD Sandoval Katharine ([id number]) on 08/02/2024 1:37:41 PM Procedure Note Karen [...] DO LAB BLOOD ORDERABLES Performing Organization Address City/[facility]/[place] [address], [place] [address] * proBNP, N-terminal (08/01/2024 9:39 PM EST) Pathologist [facility] proBNP, N-terminal <36 <125 pg/mL 08/01/2024 10:09 PM EST [facility] Blood Plasma specimen / Unknown 08/01/2024 9:39 PM EST 08/01/2024 9:46 PM EST Wily Manning DO LAB BLOOD ORDERABLES Performing Organization Address City/[facility]/ZIP Co de Phone Number [facility] [address] [place] [address], [place] [address] * HIV 1/2 Ag/Ab CMIA Reflex to Confirmation (08/01/2024 9:39 PM EST) Pathologist [facility] HIV 1/2 Ag/Ab CMIA Nonreactive Nonreactive 08/04/2024 11:01 AM EST [facility] Comment: Results show no [...] EST Wily Manning DO LAB BLOOD ORDERABLES [facility] [address] [place] [address], * High Sensitiviry D-Dimer (all sites except [facility]) (08/01/2024 9:39 PM EST) [facility] High Sensitivity D-Dimer <150 <230 ng/mL DDU [...] DO LAB BLOOD ORDERABLES Performing Organization Address City/[facility]/ZIP Co de Phone Number [facility] [address] [place] [address], [facility] [address] [place] [address] * CT Head w/o contrast (08/01/2024 9:09 [...] No acute cardiopulmonary findings. Wily Manning DO [facility] NG ORDERABLES from Last 3 Months Care Teams Care Information Associate Relationship Specialty Start Date End Date Esha Corbin MD [address] [facility] [place] [id number] PCP - General 08/01/24
--- OUTSIDE RECORDS SUMMARY | 2024-10-09 18:07 | XMS_ITS | Continuity of Care Document ---
Author Organization [facility] Address [address] [place] [phone] Phone Care Team Providers Care Contract Administrative Assistant Name Role Phone David Haddad MD, FACS [...] VISIT, [facility], [address] [facility] [address], [place], [id number], [place] tel: [phone] [place] 3 Varicose Veins With Inflammation Sep-0 6 3 Wixon Dann er. [address] [facility], [address], [id number] , [place]. tel: [phone] Referring Provider: David Covarrubias, [facility] [address], [place], [address]. tel:[phone] [facility], [address] [place] [address], [place], [id number], [place] tel: [phone] [facility] Varicose Veins With InflammationVen ous insufficiency, ChronicSwelling of limbPostphlebet ic syndrome with inflammation Sep-0 4 3 Viviane Rodriguez. [address] [facility], Ivan [address] [place] [address], [id number] . tel: [phone] OFFICE/OUTPA TIENT VISIT, [facility], [facility] [address], [place], [id number], [place] tel: [phone] [place] 3 Varicose Veins With Inflammation Jan- 3 Geexon Dann er. [address] [facility], [facility] [address], [place], [id number] , [place]. tel: [phone] Referring Provider: David Covarrubias, [facility] [address], [address]. tel:[phone] [facility], [address] [place], [place] [address], [place], [id number], [place] tel:[phone] Procedure No Information 3 Catie Quigley er. [address], [id number] , . tel: [phone] Referring Provider: David Covarrubias, [address] [place] [address], [address]. tel:[phone] OFFICE/OUTPA TIENT VISIT, [facility], [address] [place] [address], [id number], tel: [phone] [place] 3 Varicose Veins With Inflammation Nov- 2- 3 Wixtatum Quigley er. [address] [place] [address], [id number] , [place]. tel: [phone] Referring Provider: David Covarrubias, [address] [place] [address], [address]. 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 [address] [place] [address], [id number] , [place]. tel: [phone] Referring Provider: Hemal Miranda, [facility]6 [facility] [address] [place] [address], [address]. tel:[phone] [facility], [address] [place] [address], [id number], tel: [phone] [facility] No Information 0 3 Catie Quigley er. [address] [place] [address], [id number] , [place]. tel: [phone] Family History Family Member Type Diagnosis Age At Onset Family Hx of Problem (finding) Obesity Family Hx of Problem (finding) Varicose Veins Family Hx of Problem (finding) DVT Family Hx of Problem (finding) Diabetes mellitus Family Hx of Problem (finding) hypertension Payers Payer name Insurance type Covered libertarian ID Authorlamonta donnieon(s) [employer] PPO Medicare Plan CI [id number] Social History Type Description Quantity Date Captured [...]
== END 2024-10-09 16:38 | disposition home or self-care (01) ==
PROVIDERS: PCP Internal Medicine
DX: R07.9 Chest pain, unspecified (principal); I44.1 Atrioventricular block, second degree; I10 Essential (primary) hypertension; G47.33 Obstructive sleep apnea (adult) (pediatric)
CPT/HCPCS: 99214

== ENCOUNTER → 2024-10-09 14:42 | Outpatient (BNVA) | payer MEDICARE, MEDICAID, SELFPAY | PROVIDERS: PCP Internal Medicine | DX: R07.9 Chest pain, unspecified (principal); I44.1 Atrioventricular block, second degree; I10 Essential (primary) hypertension; G47.33 Obstructive sleep apnea (adult) (pediatric) | CPT/HCPCS: 99212 ==

== ENCOUNTER → 2024-10-22 13:28 | Outpatient (REF) | payer MEDICARE, MEDICAID, SELFPAY ==
--- NOTE | 2024-10-22 13:53 | CA_ITS ---
Transthoracic Echocardiogram Patient (Last, First, Middle): Jameel Gallardo C Gender: Male Date of : 1970 Age: 54 Procedure Date: 10/22/2024 Procedure Type: Transthoracic Echocardiogram Location: OP Height: 175.26 cm Weight: 127.01 kg BSA: 2.38 m2 Heart Rate: bpm BP: 134 / 90 mmHg Interlibrary Loan Specialist: DEISY Referring MD: Robson Mary NP Chief Controller Tower: Anup Herrmann MD Symptoms: I10 - Essential (primary) hypertension, R07.9 CHEST PAIN Study Quality: Technically Difficult ECG Rhythm: Sinus Conclusions: - 1. Technically limited study despite use of contrast agent due to body habitus 2. Normal LV ejection fraction of 60-65% with at least moderate left ventricular hypertrophy 3. Poorly evaluated cardiac valves 4. Normal measured RV systolic pressure Findings Left Ventricle The left ventricle was not well visualized. Normal left ventricular cavity size. There is moderately increased left ventricular wall thickness. The visually estimated ejection fraction is between 60-65%. Spectral Doppler is indicative of an impaired relaxation filling pattern. There is severe septal asymmetric hypertrophy. Right Ventricle The right ventricle was not well visualized. Atria The left atrium was not well visualized. Interatrial shunt cannot be excluded. The right atrium was not well visualized. Aortic Valve The aortic valve was not well visualized. There is no aortic valve stenosis. There is no aortic valve regurgitation. Mitral Valve The mitral valve was not well visualized. Pulmonic Valve The pulmonic valve was not well visualized. Tricuspid Valve The tricuspid valve was not well visualized. There is trace tricuspid valve regurgitation. The right ventricular systolic pressure is normal. The right ventricular systolic pressure is 20 mmHg. There is no evidence of pulmonary hypertension. Great Vessels The aorta was not well visualized. The pulmonary artery was not well visualized. Venous The inferior vena cava is normal in size. Pericardium/Pleural The pericardium was not well visualized. Measurements 2D Linear Measurements IVSd: 1.80 0.6-0.9/0.6-1.0 cm LVIDd: 3.64 3.9-5.3/4.2-5.9 cm LVIDd Index: 1.53 2.4-3.2/2.2-3.1 cm/m2 LVIDs: 2.55 2.0-3.6 cm LVPWd: 1.57 0.7-1.1 cm Ao Root: 4.40 2.1-3.5 cm LA Diam: 3.10 2.7-3.8/3.0-4.0 cm LAIDs Index: 1.30 1.5-2.3 cm/m2 LV Mass: 308.09 67-162/88-224 g LV Mass Index: 129.45 43-95/49-115 g/m2 LVOT Diam: 2.30 3.0+(-)1.3 cm Mitral Valve MV VTI: 0.33 MV Pk Oskar: 1.52 MV Mn Oskar: 0.84 MV Pk Grad: 9.00 MV Mn Grad: 3.00 MV Pk E: 0.77 MV PK A: 1.31 MV Decel Time: 138.00 E/A: 0.60 E'Lateral: 6.96 E'Medial: 7.62 E/E' Med: 10.10 E/E' Lat: 11.00 PHT: 40.00 MVA PHT: 5.50 MVA Continuity: 3.64 Decel [place]: 5.55 Aortic Valve AoV Pk Oskar: 2.20 AoV Mn Oskar: 1.48 AoV VTI: 0.45 AoV Pk Grad: 19.00 Aov Mn Grad: 10.00 JUANJO Cont.VTI: 2.63 LVOT LVOT Pk Oskar: 1.34 LVOT Mn Oskar: 1.03 LVOT VTI: 0.29 LVOT Pk Grad: 7.00 LVOT Mn Grad: 5.00 LVOT Diam: 2.30 LVOT Area: 4.15 Diastolic Function MV Pk E: 0.77 MV Pk A: 1.31 E/A: 0.60 E'Medial: 7.62 E/E' Med: 10.10 E' Laterial: 6.96 E/E' Lat: 11.00 Right Ventricle TAPSE (mm): 28.00 Tricuspid Valve TR Pk Oskar: 2.07 TR Pk Grad: 17.00 RA Press: 3.00 RVSP: 20.00 Great Vessels Aorta Ao Root-2D: 4.40 2.0-3.7 cm Ao Asc: 3.20 2.1-3.4 cm Pulmonary Valve PV Pk Oskar: 1.42 Peak PV Grad: 8.00 Updated in Other Vendor System with Status of Final Anup Herrmann MD electronically signed on 10/22/2024 4:04:31 PM with status of Final
--- OUTSIDE RECORDS SUMMARY | 2024-10-22 15:53 | XMS_ITS | Continuity of Care Document ---
Author Organization [facility] Address [address] [place] [address] Phone Care Team Providers Care Embalmer Assistant Name Role Phone David Haddad MD, [...] Copied on Encounter OFFICE/OUTPA TIENT VISIT, [facility], [address] [facility] [address], [id number], [place] tel: [phone] [place] 3 Varicose Veins With Inflammation Sep-0 6 3 Wixon Dann er. [address] [facility], [address], [id number] , [place]. tel: [phone] Referring Provider: David Covarrubias, [facility] [address], [place], [address]. tel:[phone] [facility], [address] [place] [address] [address], [place], [id number], [place] tel: [phone] [facility] Varicose Veins With InflammationVen ous insufficiency, ChronicSwelling of limbPostphlebet ic syndrome with inflammation Sep-0 4 3 Viviane Rodriguez. 47[address] [facility], Ivan [address] [place] [address], [id number] . tel: [phone] OFFICE/OUTPA TIENT VISIT, [facility], [facility] [address], [place], [id number], [place] tel: [phone] [place] 3 Varicose Veins With Inflammation Jan- 3 Geexon Dann er. [address] [facility], [facility] [address], [place], [id number] , [place]. tel: [phone] Referring Provider: David Covarrubias, [facility] [address], [address]. tel:[phone] [facility], [address] [place], [place] [address] [address], [place], [id number], [place] tel:[phone] Procedure No Information 3 Catie Quigley er. [address], [id number] , . tel: [phone] Referring Provider: David Covarrubias, [address] [place] [address], [address]. tel:[phone] OFFICE/OUTPA TIENT VISIT, [facility], [address] [place] [address], [id number], tel: [phone] [place] 3 Varicose Veins With Inflammation Nov- 2- 3 Wixtatum Quigley er. [address] [place] [address], [id number] , [place]. tel: [phone] Referring Provider: David Covarrubias, [address] [place] [address], [id number]. tel:[phone] OFFICE/OUTPA TIENT VISIT, [facility], [address] [place] [address], [id number], tel: [phone] [place] 3 Postphlebetic syndrome with inflammation Nov-0 3 Catie Quigley er. [address] [place] [address], [id number] , [place]. tel: [phone] Referring Provider: Hemal Miranda, [facility] [address] [place] [address], [id number]. tel:[phone] [facility], [address] [place] [address], [id number], tel: [phone] [facility] No Information 0 3 Catie Quigley er. [address] [place] [address], [id number] , [place]. tel: [phone] Family History Family Member Type Diagnosis Age At Onset Family Hx of Problem (finding) Obesity Family Hx of Problem (finding) Varicose Veins Family Hx of Problem (finding) DVT Family Hx of Problem (finding) Diabetes mellitus Family Hx of Problem (finding) hypertension Payers Payer name Insurance type Covered libertarian ID Authorlamonta donnieon(s) [employer] Choice PPO Medicare Plan [place] [id number] Social History Type Description Quantity Date Captured [...]
--- OUTSIDE RECORDS SUMMARY | 2024-10-22 15:53 | XMS_ITS | Clinical Summary ---
Author Organization [employer] Address [address] [facility] 7t [place] [address] Care Team Providers Care Customer Support Coordinator Name Role Phone Unavailable Primary Care Provider [...] Insurance [id number] [place] [id number] MEDICARE [facility] [address] [place] [address] DENTAL-[facility] MEDICAID STAND ADULT [address] [place] [id number] [address] [place] [id number] [address] [facility] [place] [id number]
--- OUTSIDE RECORDS SUMMARY | 2024-10-22 15:53 | XMS_ITS | Clinical Summary ---
Author Organization [facility]ly [facility] Address [address] [place] [address] Care Team Providers Care Merchandise Adjustment Clerk Name Role Phone Esha Corbin MD Primary Care Provider [phone] Allergies Active Allergy Reactions Criticality Noted Date Comments Bacitracin Anaphylaxis High 08/01/2024 Gabapentin Rash/Dermatitis Low 08/01/2024 Medications No known medications Encounters Date Type Department Care Team Description 08/02/2024 10:50 AM EST - 08/02/2024 2:36 PM EST Emergency [facility] Emergency Department [address] [place], [place] [address] Roverto Henry DO Near syncope (Primary Dx); Muscle twitching Discharge Disposition: Home or Self Care 08/01/2024 7:52 PM EST - 08/02/2024 12:04 AM [facility] Emergency Department [address] [place] [id number] Wily Manning DO Near syncope (Primary Dx) [...] 4.0 - 11.0 Thou/uL 08/02/2024 12:17 PM [facility] Platelet Count 221 150 - 450 Thou/uL 08/02/2024 12:17 PM [facility] Hemoglobin 14.9 13.0 - 17.7 g/dL 08/02/2024 12:17 PM [facility] Hematocrit 45.0 39.0 - 54.0 % 08/02/2024 12:17 PM [facility] Red Blood Cell Count 4.87 4.50 - 6.20 Mil/uL 08/02/2024 12:17 PM [facility] MCV 92 80 - 100 fL 08/02/2024 12:17 PM [facility] MCH 30.6 27.0 - 31.0 pg 08/02/2024 12:17 PM [facility] MCHC 33.1 30.0 - 36.0 g/dL 08/02/2024 12:17 PM [facility] RDW 12.8 11.5 - 14.5 % 08/02/2024 12:17 PM [facility] MPV 9.3 7.5 - 12.5 fL 08/02/2024 12:17 PM [facility] Neutrophils Auto 72.8 % 08/02/20 12:17 PM [facility] Immature Granulocytes 0.4 % 08/02/2024 12:17 PM [facility] Lymphocytes Auto 18.9 % 08/02/20 12:17 PM [facility] Monocytes Auto 6.1 % 08/02/2024 12:17 PM [facility] Eosinophils Auto 1.1 % 08/02/20 12:17 PM [facility] Basophils Auto 0.7 % 08/02/2024 12:17 PM [facility] Abs Neutrophils Auto 5.37 2.00 - 7.50 Thou/uL 08/02/2024 12:17 PM [facility] Abs Immature Granulocytes 0.03 0.00 - 0.10 Thou/uL 08/02/2024 12:17 PM [facility] Abs Lymphocytes Auto 1.39(L) 1.50 - 4.50 Thou/uL 08/02/2024 12:17 PM [facility] Abs Monocytes Auto 0.45 0.20 - 1.50 Thou/uL 08/02/2024 12:17 PM [facility] Abs Eosinophils Auto 0.08 0.00 - 0.70 Thou/uL 08/02/2024 12:17 PM [facility] Abs Basophils Auto 0.05 0.00 - 0.20 Thou/uL 08/02/2024 12:17 PM [facility] Blood Blood specimen / Unknown 08/02/2024 11:49 AM EST 08/02/2024 12:09 PM EST Roverto Henry DO LAB BLOOD ORDERABLES [facility] [address] [place] [address], [place] [address] * Magnesium (08/02/2024 11:49 AM EST) Magnesium 2.0 1.6 - 2.7 mg/dL 08/02/2024 12:39 PM EST [facility] Blood (Plasma/Serum) 08/02/2024 11:49 AM EST 08/02/2024 12:10 PM EST Roverto Henry DO LAB BLOOD ORDERABLES Performing Organization Address City/[facility]/ZIP Co de Phone Number [facility] [address] [place] [address], [place] [address] * (ABNORMAL) Comprehensive Metabolic Panel (08/02/2024 11:49 AM EST) Only the most recent of2 resultswithin the time period is included. Glucose 181(H) 65 - 99 mg/dL 08/02/2024 12:39 PM [facility] Comment:Fasting: <100 mg/dL, Non-Fasting: <200 mg/dL (ADA 2004) Blood Urea Nitrogen (BUN) 14 8 - 21 mg/dL 08/02/2024 12:39 PM [facility] Creatinine 0.7 0.5 - 1.3 mg/dL 08/02/2024 12:39 PM [facility] eGFR >90 >59 08/02/2024 12:39 PM [facility] Comment:CKD-EPI (2020) in mL /min/1.73 sq meters. Sodium 134(L) 136 - 145 mmol/L 08/02/2024 12:39 PM [facility] Potassium 4.6 3.4 - 5.3 mmol/L 08/02/2024 12:39 PM [facility] Chloride 100 98 - 107 mmol/L 08/02/2024 12:39 PM [facility] CO2 24 22 - 33 mmol/L 08/02/2024 12:39 PM [facility] Calcium 9.7 8.7 - 10.5 mg/dL 08/02/2024 12:39 PM [facility] Alkaline Phosphatase 56 45 - 128 U/L 08/02/2024 12:39 PM [facility] Aspartate Aminotrans (AST) 37 10 - 55 U/L 08/02/2024 12:39 PM [facility] Alanine Aminotrans (ALT) 24 10 - 55 U/L 08/02/2024 12:39 PM [facility] Bilirubin, Total 0.6 0.2 - 1.0 mg/dL 08/02/2024 12:39 PM [facility] Protein, Total 7.5 6.3 - 8.3 g/dL 08/02/2024 12:39 PM [facility] Albumin 4.1 3.5 - 5.0 g/dL 08/02/2024 12:39 PM [facility] BUN/Creatinine Ratio 20 10.0 - 25.0 Ratio 08/02/2024 12:39 PM [facility] Globulin 3.4 1.5 - 3.9 g/dL 08/02/2024 12:39 PM EST [facility] Albumin/Globulin Ratio 1.2 Ratio 08/02/2024 12:39 PM EST [facility] Anion Gap 10 7 - 17 08/02/2024 12:39 PM EST [facility] Blood (Plasma/Serum) 08/02/2024 11:49 AM EST 08/02/2024 12:10 PM EST Rovertokushal Henry DO LAB BLOOD ORDERABLES [facility] [address] [place] [address], [facility] [address] [place] [address] * ECG 12 lead (08/02/2024 11:02 AM EST) Only the most recent of2 resultswithin the time period is included. Ventricular rate 69 BPM EKG [facility] Atrial rate 69 BPM EKG [facility] P-R interval 266 ms EKG [facility] QRS duration 72 ms EKG [facility] Q-T interval 382 ms EKG [facility] QTC calculation (Bazett) 409 ms EKG [facility] P axis 46 degrees EKG [facility] R axis -7 degrees G [facility] T axis 17 degrees [facility] 08/02/2024 11:0 2 AM EST Narrative EKG [facility] - 08/02/2024 1:37 PM EST Sinus rhythm with 1st degree A-V block Otherwise normal ECG When compared with ECG of 01-Aug-2024 20:24, (unconfirmed) No significant change was found Confirmed by MD Sandoval Katharine ([id number]) on 08/02/2024 1:37:41 PM Procedure Note Karen [...] DO LAB BLOOD ORDERABLES Performing Organization Address City/[facility]/[place] [address], [place] [address] * proBNP, N-terminal (08/01/2024 9:39 PM EST) Pathologist [facility] proBNP, N-terminal <36 <125 pg/mL 08/01/2024 10:09 PM EST [facility] Blood Plasma specimen / Unknown 08/01/2024 9:39 PM EST 08/01/2024 9:46 PM EST Wily Manning DO LAB BLOOD ORDERABLES Performing Organization Address City/[facility]/ZIP Co de Phone Number [facility] [address] [place] [address], [place] [address] * HIV 1/2 Ag/Ab CMIA Reflex to Confirmation (08/01/2024 9:39 PM EST) Pathologist [facility] HIV 1/2 Ag/Ab CMIA Nonreactive Nonreactive 08/04/2024 11:01 AM EST [facility] Comment: Results show no evidence [...] EST Wily Manning DO LAB BLOOD ORDERABLES [facility] [address] [place] [address], * High Sensitiviry D-Dimer (all sites except [facility]) (08/01/2024 9:39 PM EST) [facility] [address] High Sensitivity D-Dimer <150 <230 ng/mL DDU [...] DO LAB BLOOD ORDERABLES Performing Organization Address City/[facility]/ZIP Co de Phone Number [facility] [address] [place] [address], [facility] [address] [place] [address] * CT Head w/o contrast (08/01/2024 9:09 [...] No acute cardiopulmonary findings. Wily Manning DO [facility] NG ORDERABLES from Last 3 Months Care Teams Merchandise Adjustment Clerk Relationship Specialty Start Date End Date Esha Corbin MD [address] [facility] [place] [id number] PCP - General 08/01/24
--- OUTSIDE RECORDS SUMMARY | 2024-10-22 15:54 | XMS_ITS | Data Portability ---
Author Organization [facility], [address] Address [address] [place] [address] Assessment No assessment recorded. Plan of Treatment Reminders Order Date Submit Date Provider Last Modified By Organization Details Last Modified Time Details Appointments None recorde d. Lab glucose , fingers tick, blood 023 09/01/19jenz3 [facility] [address], [address] [place], [address], 13:59:19 Referral None recorde d. Procedures None recorde d. Surgeries None recorde d. Imaging None recorde d. Medication Orders None recorde d. Patient TargetsNo targets recorded. Patient Instructions Encounter Date Encounter Id Patient Instructions Last Modified By Organization Details Last Modified Time 09/01/2022 [id number] Health Education and Guidance jenz Not available [...] 80-140 = normal Not Available [address] [place], [address], 09/01/2022 13:24:27 09/01/19 23 09/01/2022 gluco se, jmie rstic k, blood blood sugar - fasting mg/dL 80-125 = normal Not Available [facility] [address] [place], [address], 09/01/2022 13:24:27 Result Notes None recorded. Problems [...] SNOMED-CT Code Diagnosis ICD10 Code Diagnosis Note [id number] [address] [place] [address] 12/29/2021 16:21:44 12/29/2021 16:55:03 [id number] [place] [address] [facility] [address] [place] [address] 09/01/2022 11:38:27 09/01/2022 14:06:01 History and physical examination, pre-employment 900705643 Z02.1 Diabetes m ellitus screening [id number] Z13.1 Health Concerns Section Related Observation LastModified [...]
--- OUTSIDE RECORDS SUMMARY | 2024-10-22 15:54 | XMS_ITS | Continuity of Care Document ---
Author Organization [facility] Address [address] [facility] [address] [place] [address] Phone Care Team Providers Care Campground Hand Name Role Phone Karo Harp, Anitha SAN [...] Diagnoses Date Provider Providers Copied on Encounter [facility], [address] [place] [address], [id number] , tel:[phone] [facility] No Information 4 Karo Welsh. [address] [facility] [address], [place], [id number] , . tel:[phone] Referring Provider: Radha Martins MD C, [address], [address] . tel:[phone] Office outpt new 30 min [facility], [address] [facility] [address], [place], [id number] , tel:[phone] [facility] Bilateral Leg CVI & Lt. foot Venous Stasis Ulcer (chief complaint) Varicose veins with ulcerVaricose veins with other complicationsObesity Diabetes Mellitus Type 2, Uncomplicated 4 Karo Welsh. [address] [facility], [address], [place], [place], [id number] , [place]. tel:[phone] Referring Provider: Radha Martins MD C, [address] [facility] [address], [place], [address] . tel:[phone] Family History Family Member Type Diagnosis Age At Onset No Information Payers Payer name Insurance type Covered libertarian ID Authoriza tion(s) [employer] Hmo [place] CAP [id number] Social History Type Description Quantity Date Captured [...] LLE vein stripping (2003 in state of [place]) then Tx'ed by other surgeons in [place] up to last yr. Pt. has had significant Bilateral LLE below the knee dark brown discoloration (Lt. > Rt.) & Lt. LLE Ulcer in Lt. Medial Malleolar area being treated at present by [facility] Wound Care Dept. (Dr. Carlos), but [...]
== END ==
LOC: HO.CARD 13:28
PROVIDERS: PCP Internal Medicine
DX: R07.9 Chest pain, unspecified (principal); I10 Essential (primary) hypertension
CPT/HCPCS: 93306; Q9957

== ENCOUNTER → 2024-10-22 13:53 | Outpatient (BNV) | payer MEDICARE, MEDICAID, SELFPAY | PROVIDERS: PCP Internal Medicine; Visit Provider Internal Medicine Cardiovascular Disease | DX: R07.9 Chest pain, unspecified (principal) | CPT/HCPCS: 93306 ==

== ENCOUNTER 2024-10-27 09:12 | Outpatient (AMB) | payer MEDICARE, MEDICAID, SELFPAY ==
[2024-10-27 09:20] VITALS: BP 132/80; PULSE 86; O2SAT 98; BMI 42.4
--- NOTE | 2024-10-27 09:20 | HO.NEPHOV_ITS ---
Vital Signs 10/27/24 09:20 Height 5 ft 9 in Weight 287 lb BMI 42.4 BP 132/80 Blood Pressure Location Lt brachial Position Sitting Pulse 86 Pulse Source Pulse Oximeter Pulse Oximetry (%) 98 Oxygen Delivery Method Room Air Intake Visit Reasons: 1 MO FU/ Conf Financial Brokers Required: No Accompanied by: Spouse Allergies A & D Allergy (Severe, Verified 10/27/24 09:24) anaphylaxis bacitracin [BACITRACIN] Allergy (Severe, Verified 10/27/24 09:24) SEIZURE , anaphylaxis losartan Allergy (Intermediate, Verified 10/27/24 09:24) Angioedema Sulfa (Sulfonamide Antibiotics) Allergy (Mild, Verified 10/27/24 09:24) SWELLING adhesive tape Allergy (Verified 10/27/24 09:24) Rash atenolol Allergy (Verified 10/27/24 09:24) Heart block AV second degree gabapentin Allergy (Verified 10/27/24 09:24) Hives, elevated BP, leg twitching dapagliflozin [From Farxiga] Adverse Reaction (Intermediate, Verified 10/27/24 09:24) Abdominal Pain dulaglutide [From Trulicity] Adverse Reaction (Intermediate, Verified 10/27/24 09:24) Diarrhea, vomiting lisinopril Adverse Reaction (Intermediate, Verified 10/27/24 09:24) Dizziness lamotrigine Adverse Reaction (Verified 10/27/24 09:24) elevated BP, dizziness sweating tirzepatide [From Mounjaro] Adverse Reaction (Verified 10/27/24 09:24) Constipation losartan Allergy (Uncoded 10/09/24 14:29) feeling like he will pass out SSRI Adverse Reaction (Intermediate, Uncoded 10/09/24 14:29) DECREASE LIBIDO Medication List - Last Reconciled 10/27/24 by Guido Urbano MD amlodipine 2.5 mg PO DAILY blood sugar diagnostic (Core Stix Ultra Test strips) test blood sugar once a day blood-glucose meter (Core Stix Ultra2 Meter kit) As directed blood-glucose sensor (Rover G7 Sensor device) As directed CPAP (CPAP Machine/Device) auto PAP 6-20 cm with heated humidification with needed supplies diphenhydramine HCl (Benadryl) 50 mg (2 x 25 mg) PO Q6H PRN hydralazine 10 mg PO DAILY lancets (Living Indieuch UltraSoft Lancets) TID lancets (Living Indieuch Delica Lancets) test blood sugar daily lancing device with lancets (Salus Security Devicesica Lancing Device kit) testing blood sugar once daily meclizine 12.5 mg PO ONCE PRN metformin ER 1,500 mg PO DAILY simvastatin 40 mg PO DAILY warfarin 7.5 mg PO DAILY HPI Comments Details: 54-year-old man with a history of obesity and obstructive sleep apnea referred for management of hypertension. He has had hypertension for almost 4 years. Previously was on atenolol. He developed bradycardia therefore atenolol was discontinued. He was subsequently placed on losartan 50 mg. He has had episodes of low blood pressure. He was treated with gabapentin and developed a rash which was discontinued. Subsequently replace with Lamictal and he reacted to this as well which caused significant weakness. He had mild hyponatremia 133. Blood pressure spiked to 220 mm Hg systolic he was in the hospital. After di scontinuing the medication blood pressure stabilized. He is here for further evaluation. History of factor 5 laden deficiency. He is on Coumadin. History of obesity 09/08/2024 Here for follow-up. Underwent 24 hour ABPM. He has been experiencing some itching and a feeling of tongue swelling while on losartan.No cough. 09/25/24 Doing better with Meclizine;No further vertigo ;Still feels dizzy when he walks 09/29/2024. He continues to feel dizzy when he walks. Blood pressures spikes up when he walks. He was in the emergency room with a systolic blood pressure 180. 10/27/24 Tolerating Hydralazine Spikes up randomly Associated with sweating sometimes PFSH Medical History (Updated 10/09/24 @ 16:45 by Robson Mary NP) Heart block AV second degree Hypertension DM type 2 (diabetes mellitus, type 2) Factor 5 Leiden mutation, heterozygous Vitamin B 12 deficiency Dizziness Annual physical exam Skin abnormalities STD (male) Venous (peripheral) insufficiency Obesity Hyperlipidemia PVD (peripheral vascular disease) DVT (deep venous thrombosis) SOB (shortness of breath) Surgical History Hx of esophagogastroduodenoscopy Hx of colonoscopy H/O vascular surgery Family History Father CVD (cardiovascular disease) Mother CVD (cardiovascular disease) Daughter No problems noted. Son No problems noted. Social History Household Members: Spouse and Significant Other Housing: House Are you a primary career services director to a significant other at home: No Do you presently have visiting nurse or other home services: No Alcohol intake: former Patient Tobacco Use Status: Former Tobacco user Tobacco use type: Cigarette e-Cigarette/Vaping Use: Never Used Second Hand Smoke Exposure: No (none) service: No Current occupational status: employed Cognitive needs: No Hearing needs: No Vision needs: No Physical Exam Vital Signs: Last Vital Signs Pulse 86 10/27/24 09:20 BP 132/80 10/27/24 09:20 Pulse Ox 98 10/27/24 09:20 Oxygen Delivery Method Room Air 10/27/24 09:20 BMI result Body Mass Index 42.4 Supine blood pressure 110/60 sitting blood pressure 110/60 standing blood pressure 110/60. He was asymptomatic Comfortable Neck supple no JVD. Lungs entry equal no rales. Heart S1-S2 heard no gallop or rub. Abdomen soft nontender. Neuro alert awake oriented. No asterixis. Extremities no edema. Results Reviewed Nephrology Results: Hgb 15.5 g/dl (14.0-18.0) 09/27/24 WBC 7.8 X10*3/uL (4.8-10.8) 09/27/24 Plt Count 225 X10*3/uL (160-400) 09/27/24 Sodium 137 mmol/L (135-145) 09/27/24 Potassium 4.3 mmol/L (3.3-5.1) 09/27/24 Chloride 102 mmol/L (96-108) 09/27/24 Carbon Dioxide 26 mmol/L (22-29) 09/27/24 BUN 14 mg/dL (9-16) 09/27/24 Creatinine 0.83 mg/dL (0.5-1.4) 09/27/24 Calcium 9.6 mg/dL (8.4-10.2) 09/27/24 Assessment & Plan Assessment & Plan (1) Vertigo: Code(s): R42 - Dizziness and giddiness Category: Medical (2) Hypertension: Comment: Could not tolerate lisinopril causes dizziness, atenolol caused second-degree AV, losartan caused chest pain and itching, started on amlodipine 2.5 mg recently Code(s): I10 - Essential (primary) hypertension Category: Medical Qualifiers: Hypertension type: primary hypertension Qualified Code(s): I10 - Essential (primary) hypertension Plan 53-year-old man with obesity and obstructive sleep apnea with hypertension. Blood pressure well controlled at this time. He has had episodes of hypertension as well as blood pressure spikes. No orthostatic blood pressure changes today Encouraged stay on low-sodium diet continue to use CPAP regularly. 24 hour ABPM revealed well-controlled hypertension with nocturnal dipping. He had few episodes of low readings. Therefore I would lower his antihypertensive medication. Since he has had some sensation of tongue swelling with losartan - discontinued losartan. Replaced with amlodipine 2.5 mg. He is on simvastatin therefore I will keep her on a low dose of amlodipine. 09/28/2024. Repeat 24 hour blood pressure monitor revealed normal blood pressure readings while at rest. When he is up and walking systolic blood pressure increases as high as 180 year 190 mm Hg. I will add hydralazine 10 mg p.o. p.r.n. to be used during daytime 10/27/24 Keep current meds Recehck Metanephrines Orders: Orders Metanephrines, 24hr Urine 2 Weeks I10 - Essential (primary) hypertension Catecholamines, Frac., Plasma 2 Weeks I10 - Essential (primary) hypertension Catecholamines, Frac., 24Ur 2 Weeks I10 - Essential (primary) hypertension Coding Level of Care Code Est Pt Level 4 (10484) Diagnoses Vertigo R42 Primary hypertension I10 Hypertension type: primary hypertension
== END 2024-10-27 09:39 | disposition home or self-care (01) ==
LOC: HO.HKA 09:13
PROVIDERS: PCP Internal Medicine; Visit Provider Internal Medicine Hypertension Specialist
DX: R42 Dizziness and giddiness (principal); I10 Essential (primary) hypertension
CPT/HCPCS: 99214

== ENCOUNTER → 2024-10-27 09:12 | Outpatient (BNVA) | payer MEDICARE, MEDICAID, SELFPAY | PROVIDERS: PCP Internal Medicine; Visit Provider Internal Medicine Hypertension Specialist | DX: I10 Essential (primary) hypertension (principal); R42 Dizziness and giddiness | CPT/HCPCS: 99212 ==

== ENCOUNTER 2024-11-10 07:51 | Outpatient (REF) | payer MEDICARE, MEDICAID, SELFPAY ==
--- OUTSIDE RECORDS SUMMARY | 2024-11-10 07:56 | XMS_ITS | Continuity of Care Document ---
Author Organization [facility] Address [address] [place] [address] Phone Care Team Providers Care Fancy Wire Drawer Name Role Phone Karo Harp, Anitha SAN [...] Diagnoses Date Provider Providers Copied on Encounter [facility], [address] [place] [address], [id number] , tel:[phone] [facility] No Information 4 Karo Welsh. [address] [facility] [address], [place], [id number] , . tel:[phone] Referring Provider: Radha Martins MD C, [address], [address] . tel:[phone] Office outpt new 30 min [facility], [address] [facility] [address], [place], [id number] , tel:[phone] [facility] Bilateral Leg CVI & Lt. foot Venous Stasis Ulcer (chief complaint) Varicose veins with ulcerVaricose veins with other complicationsObesity Diabetes Mellitus Type 2, Uncomplicated 4 Karo Welsh. [address], [address], [place], [place], [id number] , [place]. tel:[phone] Referring Provider: Radha Martins MD C, [address], [place], [address] . tel:[phone] Family History Family Member Type Diagnosis Age At Onset No Information Payers Payer name Insurance type Covered libertarian ID Authoriza tion(s) Hum[employer] Hmo [place]CN [place] CAP [id number] Social History Type Description Quantity Date Captured [...] [place] then [place] other [place] in [place] up to last yr. Pt. has had significant Bilateral LLE below the knee dark brown discoloration (Lt. > Rt.) & Lt. LLE Ulcer in Lt. Medial Malleolar area being treated at present by [facility] Wound Care Dept. (Dr. Carlos), [...]
--- OUTSIDE RECORDS SUMMARY | 2024-11-10 07:56 | XMS_ITS | Clinical Summary ---
Author Organization [employer] Address [address] [facility] 7t [place] [address] Care Team Providers Care Specialty Therapist Name Role Phone Unavailable Primary Care Provider [...] Insurance [address] [place] [id number] [place] [id number] [facility] [address] [place] [id number] [facility] STAND ADULT [address] [place] [id number] [address] [place] [id number] [address] [facility] [address] [place] [id number]
--- OUTSIDE RECORDS SUMMARY | 2024-11-10 07:56 | XMS_ITS | Continuity of Care Document ---
Author Organization [facility] Address [address] [place] [address] Phone Care Team Providers Care Knitter Mechanic Name Role Phone David Haddad MD, FACS [...] Copied on Encounter OFFICE/OUTPA TIENT VISIT, [facility], [address] [facility] [address], [place], [id number], [place] tel: [phone] [place] 3 Varicose Veins With Inflammation Sep-0 6 3 Wixon Dann er. [address] [facility], [address], [id number] , [place]. tel: [phone] Referring Provider: David Covarrubias, [facility] [address], [place], [address]. tel:[phone] [facility], [address] [place] [address], [place], [id number], [place] tel: [phone] [facility] Varicose Veins With InflammationVen ous insufficiency, ChronicSwelling of limbPostphlebet ic syndrome with inflammation Sep-0 4 3 Viviane Rodriguez. [address] [facility], Ivan [address] [place] [address], [id number] . tel: [phone] OFFICE/OUTPA TIENT VISIT, [facility], [facility]0 [facility] [address], [place], [id number], [place] tel: [phone] [place] 3 Varicose Veins With Inflammation Jan- 3 Geexon Dann er. [address] [facility], [facility] [address], [place], [id number] , [place]. tel: [phone] Referring Provider: David Covarrubias, [facility] [address], [address]. tel:[phone] [facility], [address] [place], [place] [address], [place], [id number], [place] tel:[phone] Procedure No Information 3 Catie Quigley er. [address], [id number] , . tel: [phone] Referring Provider: David Covarrubias, [address] [place] [address], [address]. tel:[phone] OFFICE/OUTPA TIENT VISIT, [facility], [address] [place] [address], [id number], tel: [phone] [place] 3 Varicose Veins With Inflammation Nov- 2- 3 Wixtatum Quigley er. [address] [place] [address], [id number] , [place]. tel: [phone] Referring Provider: David Covarrubias, [address] [place] [address], [address]. tel:[phone] OFFICE/OUTPA TIENT VISIT, [facility], [address] [place] [address], [id number], tel: [phone] [place] 3 Postphlebetic syndrome with inflammation Nov-0 3 Catie Quigley er. [address] [place] [address], [id number] , [place]. tel: [phone] Referring Provider: Hemal Miranda, [facility] [address] [place] [address], [id number]. tel:[phone] [facility], [address] [place] [address], [id number], tel: [phone] [facility] No Information 0 3 Catie Quigley er. [address] [place] [address], [id number] , [place]. tel: [phone] Family History Family Member Type Diagnosis Age At Onset Family Hx of Problem (finding) Obesity Family Hx of Problem (finding) Varicose Veins Family Hx of Problem (finding) DVT Family Hx of Problem (finding) Diabetes mellitus Family Hx of Problem (finding) hypertension Payers Payer name Insurance type Covered alliance party ID Authorlamonta donnieon(s) Humana Choice PPO Medicare Plan CI [id number] Social History Type Description Quantity Date Captured [...]
--- OUTSIDE RECORDS SUMMARY | 2024-11-10 07:56 | XMS_ITS | Clinical Summary ---
Author Organization [facility] Address [address] [place] [address] Care Team Providers Care Elevator Repairer Helper Name Role Phone Esha Corbin MD Primary Care Provider [phone] Allergies Active Allergy Reactions Criticality Noted Date Comments Bacitracin Anaphylaxis High 08/01/2024 Gabapentin Rash/Dermatitis Low 08/01/2024 Medications No known medications Social History Tobacco Use Types Packs/Day Years [...] (1 of 2) 2021 COVID-19 Vaccine ( season) 2024 HIV Screening Completed 08/01/2024 Influenza Vaccine Completed 08/03/2024 Procedures Procedure Name Priority Date/Time Associated Diagnosis Comments HIV 1/2 AG/AB CMIA REFLEX TO CONFIRMATION STAT 08/01/2024 9:39 PM EST from Last 3 Months or Most Recently Relevant to Health Maintenance Results * HIV 1/2 Ag/Ab CMIA Reflex to Confirmation (08/01/2024 9:39 PM EST) HIV 1/2 Ag/Ab CMIA Nonreactive Nonreactive 08/04/2024 [...] ORDERABLES [facility] [address] from Last 3 Months or Most Recently Relevant to Health Maintenance Care Teams Elevator Repairer Helper Relationship Specialty Start Date End Date Esha Corbin MD [address] [place] [address] [place] [address] PCP - General 08/01/24
--- OUTSIDE RECORDS SUMMARY | 2024-11-10 07:56 | XMS_ITS | Data Portability ---
Author Organization [facility] Address [address] [place] [address] Assessment No assessment recorded. Plan of Treatment Reminders Order Date Submit Date Provider Last Modified By Organization Details Last Modified Time Details Appointments None recorde d. Lab glucose , fingers tick, blood 023 09/01/19jenz3 [facility], [address] [place], [address], 13:59:19 Referral None recorde d. Procedures None recorde d. Surgeries None recorde d. Imaging None recorde d. Medication Orders None recorde d. Patient TargetsNo targets recorded. Patient Instructions Encounter Date Encounter Id Patient Instructions Last Modified By Organization Details Last Modified Time 09/01/2022 [id number] Health Education and Guidance jenz Not available [...] 80-140 = normal Not Available [facility] [address] [place], [address], 09/01/2022 13:24:27 09/01/19 23 09/01/2022 gluco se, jime rstic k, blood blood sugar - fasting mg/dL 80-125 = normal Not Available [facility] [address] [place], [address], 09/01/2022 13:24:27 Result Notes None recorded. Problems [...] SNOMED-CT Code Diagnosis ICD10 Code Diagnosis Note [id number] [address] [place] [address] 12/29/2021 16:21:44 12/29/2021 16:55:03 [id number] [place] [address] [facility] [address] [place] [address] 09/01/2022 11:38:27 09/01/2022 14:06:01 History and physical examination, pre-employment [id number] Z02.1 Diabetes m ellitus screening [id number] Z13.1 Health Concerns Section Related Observation LastModified [...]
[2024-11-10 08:42] LABS: MANUAL DIFF FLAG NO
[2024-11-10 08:45] LABS: Basophils Absolute Auto 0.1 X10*3/uL (0.0-0.2); Basophils Percent Auto 0.7 % (0-2); Eosinophils Absolute Auto 0.1 X10*3/uL (0.0-0.4); Eosinophils Percent Auto 1.2 % (0-4); Hematocrit 44.7 % (42.0-52.0); Hemoglobin 15.3 g/dl (14.0-18.0); Imm Gran Abs Auto 0.03 X10*3/uL (0.00-0.03); Imm Gran Pct Auto 0.3 % (0.0-0.4); Lymphocytes Absolute Auto 1.5 X10*3/uL (1.2-4.9); Lymphocytes Percent Auto 17.2 % (20-40); Mean Corpuscular HGB Conc 34.2 g/dl (31.0-36.0); Mean Corpuscular Hemoglobin 30.6 pg (27.0-33.0); Mean Corpuscular Volume 89.4 fL (80.0-98.0); Mean Platelet Volume 9.4 fL (9.4-12.4); Monocytes Absolute Auto 0.6 X10*3/uL (0.1-1.2); Neutrophils Absolute Auto 6.4 x10*3/uL (2.0-8.3); Neutrophils Percent Auto 73.6 % (45-73); Platelet Count 213 X10*3/uL (160-400); Red Cell Distribution Width 12.7 % (11.0-16.0); White Blood Count 8.6 X10*3/uL (4.8-10.8)
[2024-11-10 09:12] LABS: Alanine Aminotransferase 26 U/L (0-40); Albumin Level 4.1 g/dL (3.5-5.0); Alkaline Phosphatase 60 U/L (39-117); Anion Gap 12 (12-20); Aspartate Amino Transferase 30 U/L (5-37); Bilirubin Total 0.6 mg/dL (0.0-1.0); Blood Urea Nitrogen 15 mg/dL (9-16); Carbon Dioxide 27 mmol/L (22-29); Chloride 103 mmol/L (96-108); Cholesterol 141 mg/dL (<200); Estimated Glomerular Filt Rate > 60; Glucose Fasting 161 mg/dL (60-99); HDL Cholesterol 44 mg/dL (>40); LDL Cholesterol Calculated 68 mg/dL (<100); Potassium 4.5 mmol/L (3.3-5.1); Sodium 137 mmol/L (135-145); Total Protein 7.7 g/dL (6.5-8.0); Triglycerides 148 mg/dL (<150)
[2024-11-10 09:18] LABS: Estimated Average Glucose 157 mg/dL; Hemoglobin A1C 215.8429 umol/L; Hemoglobin A1c % 7.1 % (<6.0); Total Hemoglobin (HGBA1C) 3994.0928 umol/L
[2024-11-10 09:25] LABS: TSH reflex Free T4 1.45 uIU/mL (0.32-4.0)
[2024-11-10 10:04] LABS: Vitamin B12 345 pg/mL (200-900)
[2024-11-19 18:33] LABS: Catecholamine Frac, Total <266 pg/mL
== END 2024-11-10 07:52 | disposition home or self-care (01) ==
LOC: HO.LAB 07:51
PROVIDERS: Absent Provider Internal Medicine Hypertension Specialist; PCP Internal Medicine; Visit Provider Internal Medicine
DX: Z00.00 Encounter for general adult medical examination without abnormal findings (principal); E11.9 Type 2 diabetes mellitus without complications; E78.5 Hyperlipidemia, unspecified; I10 Essential (primary) hypertension
CPT/HCPCS: 36415; 80053; 80061; 82384; 82607; 82746; 83036; 84443; 85025

== ENCOUNTER 2024-11-13 15:22 | Outpatient (REF) | payer MEDICARE, MEDICAID, SELFPAY ==
--- OUTSIDE RECORDS SUMMARY | 2024-11-13 17:42 | XMS_ITS | Clinical Summary ---
Author Organization [employer] Address [address] [facility] 7t [place] [address] Care Team Providers Care Culture Manager Name Role Phone Unavailable Primary Care Provider [...] Insurance [address] [place] [id number] [place] [id number] [facility] [address] [place] [id number] [facility] MEDICAID STAND ADULT [address] [place] [id number] [address] [place] [id number] [address] [facility] [address] [place] [id number]
--- OUTSIDE RECORDS SUMMARY | 2024-11-13 17:42 | XMS_ITS | Continuity of Care Document ---
Author Organization [facility] Address [address] [place] [address] Phone Care Team Providers Care Ventilating Engineer Name Role Phone David Haddad MD, FACS [...] Providers Copied on Encounter OFFICE/OUTPA TIENT VISIT, [facility], [address] [facility] [address], [place], [id number], [place] tel: [phone] [place] 3 Varicose Veins With Inflammation Sep-0 6 3 Wixon Dann er. [address] [facility], [address], [id number] , [place]. tel: [phone] Referring Provider: David Covarrubias, [facility] [address], [place], [address]. tel:[phone] [facility], [address] [place] [address], [place], [id number], [place] tel: [phone] [place] [facility] Varicose Veins With InflammationVen ous insufficiency, ChronicSwelling of limbPostphlebet ic syndrome with inflammation Sep-0 4 [address] [facility], Ivan [address] [place] [address], [id number] . tel: [phone] OFFICE/OUTPA TIENT VISIT, [facility], [facility] [address], [place], [id number], [place] tel: [phone] [place] 3 Varicose Veins With Inflammation Jan- 3 Geexon Dann er. [address] [facility], [facility] [address], [place], [id number] , [place]. tel: [phone] Referring Provider: David Covarrubias, [facility] [address], [address]. tel:[phone] [facility], [address] [place], [place] [address], [place], [id number], [place] tel:[phone] Procedure No Information 3 Catie Quigley er. [address], [id number] , . tel: [phone] Referring Provider: David Covarrubias, [address] [place] [address], [address]. tel:[phone] OFFICE/OUTPA TIENT VISIT, [facility], [address] [place] [address], [id number], tel: [phone] [place] 3 Varicose Veins With Inflammation Nov- 2- 3 Wixtatum Quigley er. [address] [place] [address], [id number] , [place]. tel: [phone] Referring Provider: David Covarrubias, [address] [place] [address], [address]. 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 [address] [place] [address], [id number] , [place]. tel: [phone] Referring Provider: Hemal Miranda, [facility]6 [facility] [address] [place] [address], [address]. tel:[phone] [facility], [address] [place] [address], [id number], tel: [phone] [place] [facility] No Information 0 3 Catie Quigley er. [address] [place] [address], [id number] , [place]. tel: [phone] Family History Family Member Type Diagnosis Age At Onset Family Hx of Problem (finding) Obesity Family Hx of Problem (finding) Varicose Veins Family Hx of Problem (finding) DVT Family Hx of Problem (finding) Diabetes mellitus Family Hx of Problem (finding) hypertension Payers Payer name Insurance type Covered libertarian ID Authorlamonta donnieon(s) Hum[employer] Choice PPO Medicare Plan CI [id number] Social History Type Description Quantity Date Captured [...]
--- OUTSIDE RECORDS SUMMARY | 2024-11-13 17:42 | XMS_ITS | Clinical Summary ---
Author Organization [facility] Address [address] [place] [address] Care Team Providers Care Logistics Administrator Name Role Phone Esha Corbin MD Primary Care Provider [phone] Allergies Active Allergy Reactions Criticality Noted Date [...] ORDERABLES [facility] [address] from Last 3 Months or Most Recently Relevant to Health Maintenance Care Teams Logistics Administrator Relationship Specialty Start Date End Date Esha Corbin MD [address] [place] [address] [place] [id number] PCP - General 08/01/24
--- OUTSIDE RECORDS SUMMARY | 2024-11-13 17:42 | XMS_ITS | Data Portability ---
Author Organization [facility], [facility] Address [address] [place] [address] Assessment No assessment recorded. Plan of Treatment Reminders Order Date Submit Date Provider Last Modified By Organization Details Last Modified Time Details Appointments None recorde d. Lab glucose , fingers tick, blood 023 09/01/19jenz3 [facility], [address] [place], [address], 13:59:19 Referral None recorde d. Procedures None recorde d. Surgeries None recorde d. Imaging None recorde d. Medication Orders None recorde d. Patient TargetsNo targets recorded. Patient Instructions Encounter Date Encounter Id Patient Instructions Last Modified By Organization Details Last Modified Time 09/01/2022 [id number] Health Education and Guidance jenz Not available [...] 80-140 = normal Not Available [facility] [address] [place], [address], 09/01/2022 13:24:27 09/01/19 23 09/01/2022 gluco se, jime rstic k, blood blood sugar - fasting mg/dL 80-125 = normal Not Available [facility] [address] [place], [address], 09/01/2022 13:24:27 Result Notes None recorded. Problems [...] SNOMED-CT Code Diagnosis ICD10 Code Diagnosis Note [id number] [address] [place] [address] 12/29/2021 16:21:44 12/29/2021 16:55:03 [id number] [place] [address] [facility] [address] [place] [address] 09/01/2022 11:38:27 09/01/2022 14:06:01 History and physical examination, pre-employment [id number] Z02.1 Diabetes m ellitus screening [id number] Z13.1 Health Concerns Section Related Observation LastModified [...]
--- OUTSIDE RECORDS SUMMARY | 2024-11-13 17:42 | XMS_ITS | Continuity of Care Document ---
Author Organization [facility] Address [address] [facility] [address] [place] [address] Phone Care Team Providers Care Environmental Compliance Officer Name Role Phone Karo Harp, Anitha SAN [...] Diagnoses Date Provider Providers Copied on Encounter [facility], [address] [place] [address], [id number] , tel:[phone] [facility] No Information 4 Karo Welsh. [address] [facility] [address], [place], [id number] , . tel:[phone] Referring Provider: Radha Martins MD C, [address], [address] . tel:[phone] Office outpt new 30 min [facility], [address] [facility] [address], [place], [id number] , tel:[phone] [facility] Bilateral Leg CVI & Lt. foot Venous Stasis Ulcer (chief complaint) Varicose veins with ulcerVaricose veins with other complicationsObesity Diabetes Mellitus Type 2, Uncomplicated 4 Karo Welsh. [address] [facility], [address], [place], [place], [id number] , [place]. tel:[phone] Referring Provider: Radha Martins MD C, [address] [facility] [address], [place], [address] . tel:[phone] Family History Family Member Type Diagnosis Age At Onset No Information Payers Payer name Insurance type Covered democrat ID Authoriza tion(s) [employer] Hmo [place] [id number] Social History Type Description Quantity Date Captured [...] LLE vein stripping (2003 in [place]) then Tx'ed by other surgeons in [place] up to last yr. Pt. has had significant Bilateral LLE below the knee dark brown discoloration (Lt. > Rt.) & Lt. LLE Ulcer in Lt. Medial Malleolar area being treated at present by [facility] Wound [facility]. (Dr. Carlos), but [...]
[2024-11-19 14:37] LABS: CATF, 24 Ur Volume 3100 mL; CATF-24Ur Creatinine 2.06 g/24 h (0.50-2.15); Catecholamines,Tot. (E+NE) 24U 57 mcg/24 h (26-121); Dopamine, 24 Ur 552 mcg/24 h (52-480); Norepinephrine, 24 Ur 57 mcg/24 h (15-100)
[2024-11-21 14:09] LABS: Metanephrine, Free 24U 124 mcg/24 h (90-315); Normetanephrine, Free 24U 336 mcg/24 h (122-676); Total Metanephrine, Free 24U 460 mcg/24 h (224-832); Total Volume 24U 3100 mL
== END 2024-11-13 15:23 | disposition home or self-care (01) ==
LOC: HO.LNP 15:22
PROVIDERS: Visit Provider Internal Medicine Hypertension Specialist
DX: I10 Essential (primary) hypertension (principal)
CPT/HCPCS: 82384; 83835

== ENCOUNTER → 2024-11-26 08:20 | Outpatient (REF) | payer MEDICARE, MEDICAID, SELFPAY ==
--- NOTE | 2024-11-26 08:23 | CA_ITS ---
Acquisition Time: 2024-11-26 08:51:20 Total Exercise Time: 00:05:01 Test Indications: CP Medications: SEE H&P Protocol: SHANNON Max HR: 148 BPM 88% of Pred: 167 BPM Max BP: 210/104 mmHG Max Work Load: 4.6 METS Exercise stress test with exercise 5 mins 1 sec of Shannon Protocol held at stage 1, achieving 88% MPHR, with reports of severe SOB and leg discomfort, no chest pain, with isolated PVCs, with hypertensive response to exercise- max BP 210/104. Without EKG changes meeting criteria for ischemia. In recovery, breathing returned to baseline and leg discomfort resolved. BP returned to 130/90. Nuclear images pending. Test reviewed with Dr. Nix. Referred By: Robson Mary Electronically Signed By: Robson Mary
--- OUTSIDE RECORDS SUMMARY | 2024-11-26 08:36 | XMS_ITS | Clinical Summary ---
Author Organization [employer] Address [address] [facility] 7t [place] [address] Care Team Providers Care Supply Chain Engineer Name Role Phone Unavailable Primary Care Provider [...] Insurance [address] [place] [id number] [place] [id number] [facility] [address] [place] [id number] [facility] MEDICAID STAND ADULT [address] [place] [id number] [address] [place] [id number] [address] [facility] [address] [place] [id number]
--- OUTSIDE RECORDS SUMMARY | 2024-11-26 08:36 | XMS_ITS | Clinical Summary ---
Author Organization [facility] Address [address] [place] [address] Care Team Providers Care Race Relations Professor Name Role Phone Esha Corbin MD Primary Care Provider [phone] Allergies Active Allergy Reactions Criticality Noted Date Comments Bacitracin Anaphylaxis High 08/01/2024 Gabapentin Rash/Dermatitis Low 08/01/2024 Medications No known medications Social History Tobacco Use Types Packs/Day Years Used Date Smoking Tobacco: Never Assessed Sex and Gender Information Value Date Recorded Sex Assigned at Male 08/01/2024 8:08 PM EST Legal Sex Male 7:52 PM EST Gender Identity Male 08/01/2024 8:08 [...] of 2) 2021 COVID-19 Vaccine ( - 2023- season) 2024 HIV Screening Completed [...] Nonreactive Nonreactive 08/04/2024 11:01 AM EST [facility] Comment: Results show no evidence of infection by HIV 1/2. If clinically indicated, repeat CMIA or test by nucleic acid amplification. HIV 1/2 Antigen/Antibody CMIA reflex to confirmation AND HIV-1 RNA viral load recommended in patients who are taking or have recently taken PrEP. Blood Serum specimen / Unknown 08/01/2024 9:39 PM EST 08/01/2024 9:46 PM EST us Wily Manning DO LAB BLOOD ORDERABLES Final R esult [facility] [address] [place] [address], from Last 3 Months or Most Recently Relevant to Health Maintenance Insurance MEDICARE PART A & B [facility] Care Teams Race Relations Professor Relationship Specialty Start Date End Date Esha Corbin MD [address] [place] [address] PCP - General 08/01/24
--- OUTSIDE RECORDS SUMMARY | 2024-11-26 08:36 | XMS_ITS | Continuity of Care Document ---
Author Organization [facility] Address [address] [place] [address] Phone Care Team Providers Care Geophysics Professor Name Role Phone David Haddad MD, FACS [...] Copied on Encounter OFFICE/OUTPA TIENT VISIT, [facility], [address] [facility] [address], [place], [id number], [place] tel: [phone] [place] 3 Varicose Veins With Inflammation Sep-0 6 3 Wixon Dann er. [address] [facility], [address], [id number] , [place]. tel: [phone] Referring Provider: David Covarrubias, [facility] [address], [place], [address]. tel:[phone] [facility], [address] [place] [address], [place], [id number], [place] tel: [phone] [facility] Varicose Veins With InflammationVen ous insufficiency, ChronicSwelling of limbPostphlebet ic syndrome with inflammation Sep-0 4 3 Viviane Rodriguez. [address] [facility], [address] [place] [address], [id number] . tel: [phone] OFFICE/OUTPA TIENT VISIT, [facility], [facility] [address], [place], [id number], [place] tel: [phone] [place] 3 Varicose Veins With Inflammation Jan- 3 Geexon Dann er. [address] [facility], [facility] [address], [place], [id number] , [place]. tel: [phone] Referring Provider: David Covarrubias, [facility] [address], [address]. tel:[phone] [facility], [address] [place], [place] [address], [place], [id number], [place] tel:[phone] Procedure No Information 3 Catie Quigley er. [address], [id number] , . tel: [phone] Referring Provider: David Covarrubias, [address] [place] [address], [address]. tel:[phone] OFFICE/OUTPA TIENT VISIT, [facility], [address] [place] [address], [id number], tel: [phone] [place] 3 Varicose Veins With Inflammation Nov- 2- 3 Wixtatum Quigley er. [address] [place] [address], [id number] , [place]. tel: [phone] Referring Provider: David Covarrubias, [address] [place] [address], [address]. tel:[phone] OFFICE/OUTPA TIENT VISIT, [facility], [address] [place] [address], [id number], tel: [phone] [place] 3 Postphlebetic syndrome with inflammation Nov-0 3 Catie Quigley er. [address] [place] [address], [id number] , [place]. tel: [phone] Referring Provider: Hemal Miranda, [facility]6 [facility] [address] [place] [address], [address]. tel:[phone] [facility], [address] [place] [address], [id number], tel: [phone] [facility] No Information 0 3 Catie Quigley er. [address] [place] [address], [id number] , [place]. tel: [phone] Family History Family Member Type Diagnosis Age At Onset Family Hx of Problem (finding) Obesity Family Hx of Problem (finding) Varicose Veins Family Hx of Problem (finding) DVT Family Hx of Problem (finding) Diabetes mellitus Family Hx of Problem (finding) hypertension Payers Payer name Insurance type Covered alliance party ID Authorlamonta donnieon(s) Hum[employer] Choice PPO Medicare Plan [place] [id number] Social History Type Description Quantity Date Captured [...]
--- OUTSIDE RECORDS SUMMARY | 2024-11-26 08:36 | XMS_ITS | Data Portability ---
Author Organization [facility] Address [address] [place] [address] Assessment No assessment recorded. Plan of Treatment Reminders Order Date Submit Date Provider Last Modified By Organization Details Last Modified Time Details Appointments None recorde d. Lab glucose , fingers tick, blood 023 09/01/19jenz3 [facility], [address] [place], [address], 13:59:19 Referral None recorde d. Procedures None recorde d. Surgeries None recorde d. Imaging None recorde d. Medication Orders None recorde d. Patient TargetsNo targets recorded. Patient Instructions Encounter Date Encounter Id Patient Instructions Last Modified By Organization Details Last Modified Time 09/01/2022 [id number] Health Education and Guidance jenz Not available [...] 80-140 = normal Not Available [facility] [address] [place], [address], 09/01/2022 13:24:27 09/01/19 23 09/01/2022 gluco se, jime rstic k, blood blood sugar - fasting mg/dL 80-125 = normal Not Available [facility] [address] [place], [address], 09/01/2022 13:24:27 Result Notes None recorded. Problems [...] SNOMED-CT Code Diagnosis ICD10 Code Diagnosis Note [id number] [address] [place] [address] 12/29/2021 16:21:44 12/29/2021 16:55:03 [id number] [place] [address] [facility] [address] [place] [address] 09/01/2022 11:38:27 09/01/2022 14:06:01 History and physical examination, pre-employment [id number] Z02.1 Diabetes m ellitus screening [id number] Z13.1 Health Concerns Section Related Observation LastModified [...]
--- OUTSIDE RECORDS SUMMARY | 2024-11-26 08:36 | XMS_ITS | Continuity of Care Document ---
Author Organization [facility] Address [address] [facility] [address] [place] [address] Phone Care Team Providers Care Garage Laborer Name Role Phone Karo Harp, Anitha SAN [...] Diagnoses Date Provider Providers Copied on Encounter [facility], [address] [place] [address], [id number] , tel:[phone] [facility] No Information 4 Karo Welsh. [address] [facility] [address], [place], [id number] , . tel:[phone] Referring Provider: Radha Martins MD C, [address], [address] . tel:[phone] Office outpt new 30 min [facility], [address] [facility] [address], [place], [id number] , tel:[phone] [facility] Bilateral Leg CVI & Lt. foot Venous Stasis Ulcer (chief complaint) Varicose veins with ulcerVaricose veins with other complicationsObesity Diabetes Mellitus Type 2, Uncomplicated 4 Karo Welsh. [address] [facility], [address], [place], [place], [id number] , [place]. tel:[phone] Referring Provider: Radha Martins MD C, [address] [facility] [address], [place], [address] . tel:[phone] Family History Family Member Type Diagnosis Age At Onset No Information Payers Payer name Insurance type Covered green party ID Authoriza tion(s) Humana Hmo [place] [id number] Social History Type Description Quantity Date Captured [...] LLE vein stripping (2003 in [place] of [place]) then Tx'ed by other surgeons in [place] up to last yr. Pt. has had significant Bilateral LLE below the knee dark brown discoloration (Lt. > Rt.) & Lt. LLE Ulcer in Lt. Medial Malleolar area being treated at present by [facility] W[facility]. (Dr. Carlos), but has [...]
== END ==
LOC: HO.CARD 08:20
PROVIDERS: PCP Internal Medicine
DX: R07.9 Chest pain, unspecified (principal)
CPT/HCPCS: 93017

== ENCOUNTER → 2024-11-26 08:23 | Outpatient (BNV) | payer MEDICARE, MEDICAID, SELFPAY | PROVIDERS: PCP Internal Medicine | DX: R07.9 Chest pain, unspecified (principal) | CPT/HCPCS: 78452; 93016; 93018 ==

== ENCOUNTER 2024-11-27 14:33 | Outpatient (AMB) | payer MEDICARE, MEDICAID, SELFPAY ==
[2024-11-27 14:49] VITALS: BP 124/82; PULSE 83; O2SAT 97; BMI 42.9
--- NOTE | 2024-11-27 14:49 | HO.NEPHOV ---
Vital Signs 11/27/24 14:49 Height 5 ft 9 in Weight 290 lb 8 oz BMI 42.9 BP 124/82 Blood Pressure Location Rt brachial Position Sitting Pulse 83 Pulse Source Pulse Oximeter Pulse Oximetry (%) 97 Oxygen Delivery Method Room Air Intake Visit Reasons: 1 MO FU/ LVM Accompanied by: Significant Other Allergies A & D Allergy (Severe, Verified 12/01/24 09:11) anaphylaxis bacitracin [BACITRACIN] Allergy (Severe, Verified 12/01/24 09:11) SEIZURE , anaphylaxis losartan Allergy (Intermediate, Verified 12/01/24 09:11) Angioedema Sulfa (Sulfonamide Antibiotics) Allergy (Mild, Verified 12/01/24 09:11) SWELLING adhesive tape Allergy (Verified 12/01/24 09:11) Rash atenolol Allergy (Verified 12/01/24 09:11) Heart block AV second degree gabapentin Allergy (Verified 12/01/24 09:11) Hives, elevated BP, leg twitching dapagliflozin [From Farxiga] Adverse Reaction (Intermediate, Verified 12/01/24 09:11) Abdominal Pain dulaglutide [From Trulicity] Adverse Reaction (Intermediate, Verified 12/01/24 09:11) Diarrhea, vomiting lisinopril Adverse Reaction (Intermediate, Verified 12/01/24 09:11) Dizziness lamotrigine Adverse Reaction (Verified 12/01/24 09:11) elevated BP, dizziness sweating tirzepatide [From Mounjaro] Adverse Reaction (Verified 12/01/24 09:11) Constipation losartan Allergy (Uncoded 12/01/24 09:11) feeling like he will pass out SSRI Adverse Reaction (Intermediate, Uncoded 12/01/24 09:11) DECREASE LIBIDO Medication List - Last Reconciled 11/27/24 by Guido Urbano MD amlodipine 2.5 mg PO DAILY blood sugar diagnostic ([employer] Ultra Test strips) test blood sugar once a day blood-glucose meter ([employer] Ultra2 Meter kit) As directed blood-glucose sensor ([employer] G7 Sensor device) As directed CPAP (CPAP Machine/Device) auto PAP 6-20 cm with heated humidification with needed supplies diphenhydramine HCl (Benadryl) 50 mg (2 x 25 mg) PO Q6H PRN hydralazine 10 mg PO DAILY lancets ([employer] UltraSoft Lancets) TID lancets ([employer] Delica Lancets) test blood sugar daily lancing device with lancets ([employer] Lancing Device kit) testing blood sugar once daily meclizine 12.5 mg PO ONCE PRN metformin ER 1,500 mg (2 x 750 mg) PO DAILY simvastatin 40 mg PO DAILY warfarin 7.5 mg PO DAILY HPI Comments Details: 54-year-old man with a history of obesity and obstructive sleep apnea referred for management of hypertension. He has had hypertension for almost 4 years. Previously was on atenolol. He developed bradycardia therefore atenolol was discontinued. He was subsequently placed on losartan 50 mg. He has had episodes of low blood pressure. He was treated with gabapentin and developed a rash which was discontinued. Subsequently replace with Lamictal and he reacted to this as well which caused significant weakness. He had mild hyponatremia 133. Blood pressure spiked to 220 mm Hg systolic he was in the hospital. After discontinuing the medication blood pressure stabilized. He is here for further evaluation. History of factor 5 laden deficiency. He is on Coumadin. History of obesity 09/08/2024 ;Here for follow-up. Underwent 24 hour ABPM. He has been experiencing some itching and a feeling of tongue swelling while on losartan.No cough. 09/25/24 ;Doing better with Meclizine;No further vertigo ;Still feels dizzy when he walks 09/29/2024. He continues to feel dizzy when he walks. Blood pressures spikes up when he walks. He was in the emergency room with a systolic blood pressure 180. 10/27/24 ;Tolerating Hydralazine ; Spikes up randomly ; Associated with sweating sometimes 11/27/24 : Had an episode of dizziness with BP spike in [employer] Underwent Stress test. [facility] Medical History Heart block AV second degree Hypertension DM type 2 (diabetes mellitus, type 2) Factor 5 Leiden mutation, heterozygous Vitamin B 12 deficiency Dizziness Annual physical exam Skin abnormalities STD (male) Venous (peripheral) insufficiency Obesity Hyperlipidemia PVD (peripheral vascular disease) DVT (deep venous thrombosis) SOB (shortness of breath) Surgical History Hx of esophagogastroduodenoscopy Hx of colonoscopy H/O vascular surgery Family History Father CVD (cardiovascular disease) Mother CVD (cardiovascular disease) Daughter No problems noted. Son No problems noted. Social History Household Members: Spouse and Significant Other Housing: House Are you a primary child care cook to a significant other at home: No Do you presently have visiting nurse or other home services: No Alcohol intake: former Patient Tobacco Use Status: Former Tobacco user Tobacco use type: Cigarette e-Cigarette/Vaping Use: Never Used Second Hand Smoke Exposure: No (none) service: No Current occupational status: employed Cognitive needs: No Hearing needs: No Vision needs: No Physical Exam Vital Signs: Last Vital Signs Pulse 83 11/27/24 14:49 BP 124/82 11/27/24 14:49 Pulse Ox 97 11/27/24 14:49 Oxygen Delivery Method Room Air 11/27/24 14:49 BMI result Body Mass Index 42.9 Comfortable Neck supple no JVD. Lungs entry equal no rales. Heart S1-S2 heard no gallop or rub. Abdomen soft nontender. Neuro alert awake oriented. No asterixis. Extremities no edema. Results Reviewed Nephrology Results: Hgb 15.3 g/dl (14.0-18.0) 11/10/24 WBC 8.6 X10*3/uL (4.8-10.8) 11/10/24 Plt Count 213 X10*3/uL (160-400) 11/10/24 Sodium 137 mmol/L (135-145) 11/10/24 Potassium 4.5 mmol/L (3.3-5.1) 11/10/24 Chloride 103 mmol/L (96-108) 11/10/24 Carbon Dioxide 27 mmol/L (22-29) 11/10/24 BUN 15 mg/dL (9-16) 11/10/24 Creatinine 0.88 mg/dL (0.5-1.4) 11/10/24 Calcium 9.0 mg/dL (8.4-10.2) 11/10/24 Assessment & Plan Assessment & Plan (1) Vertigo: Code(s): R42 - Dizziness and giddiness Category: Medical (2) Hypertension: Comment: Could not tolerate lisinopril causes dizziness, atenolol caused second-degree AV, losartan caused chest pain and itching, started on amlodipine 2.5 mg recently Code(s): I10 - Essential (primary) hypertension Category: Medical Qualifiers: Hypertension type: primary hypertension Qualified Code(s): I10 - Essential (primary) hypertension Plan 54 year-old man with obesity and obstructive sleep apnea with hypertension. Blood pressure well controlled at this time. He has had episodes of hypertension as well as blood pressure spikes. No orthostatic blood pressure changes today Encouraged stay on low-sodium diet continue to use CPAP regularly. 24 hour ABPM revealed well-controlled hypertension with nocturnal dipping. He had few episodes of low readings. Therefore I lowered his antihypertensive medication. Since he has had some sensation of tongue swelling with losartan - discontinued losartan. Replaced with amlodipine 2.5 mg. He is on simvastatin therefore I will keep her on a low dose of amlodipine. 09/28/2024. Repeat 24 hour blood pressure monitor revealed normal blood pressure readings while at rest. When he is up and walking systolic blood pressure increases as high as 180 year 190 mm Hg. I will add hydralazine 10 mg p.o. p.r.n. to be used during daytime 10/27/24 ;Keep current meds ; Recheck Metanephrines 11/27/24: Will refer for evaluaiton of autonomic dysfunction Coding Level of Care Code Est Pt Level 4 (81502) Diagnoses Vertigo R42 Primary hypertension I10 Hypertension type: primary hypertension
--- OUTSIDE RECORDS SUMMARY | 2024-11-27 17:08 | XMS_ITS | Data Portability ---
Author Organization [facility] Address [address] [place] [address] Assessment No assessment recorded. Plan of Treatment Reminders Order Date Submit Date Provider Last Modified By Organization Details Last Modified Time Details Appointments None recorde d. Lab glucose , fingers tick, blood 023 09/01/19jenz3 [facility], [address] [place], [address], 13:59:19 Referral None recorde d. Procedures None recorde d. Surgeries None recorde d. Imaging None recorde d. Medication Orders None recorde d. Patient TargetsNo targets recorded. Patient Instructions Encounter Date Encounter Id Patient Instructions Last Modified By Organization Details Last Modified Time 09/01/2022 [id number] Health Education and Guidance jenz Not available [...] 80-140 = normal Not Available [address] [address] [place], [address], 09/01/2022 13:24:27 09/01/19 23 09/01/2022 gluco se, jime rstic k, blood blood sugar - fasting mg/dL 80-125 = normal Not Available [facility] [address] [place], [address], 09/01/2022 13:24:27 Result Notes None recorded. Problems [...] SNOMED-CT Code Diagnosis ICD10 Code Diagnosis Note [id number] [address] [place] [address] 12/29/2021 16:21:44 12/29/2021 16:55:03 [id number] [place] [address] [facility] [address] [place] [address] 09/01/2022 11:38:27 09/01/2022 14:06:01 History and physical examination, pre-employment [id number] Z02.1 Diabetes m ellitus screening [id number] Z13.1 Health Concerns Section Related Observation LastModified [...]
--- OUTSIDE RECORDS SUMMARY | 2024-11-27 17:08 | XMS_ITS | Clinical Summary ---
Author Organization [employer] Address [address] [facility] 7t [place] [address] Care Team Providers Care Chef Instructor Name Role Phone Unavailable Primary Care Provider [...] Insurance [address] [place] [id number] [place] [phone] [facility] [address] [place] [id number] [facility] MEDICAID STAND ADULT [address] [place] [id number] [address] [place] [id number] [address] [facility] [address] [place] [id number]
--- OUTSIDE RECORDS SUMMARY | 2024-11-27 17:08 | XMS_ITS | Clinical Summary ---
Author Organization [facility] Address [address] [place] [address] Care Team Providers Care Engraver Set Up Operator Name Role Phone Esha Corbin MD Primary Care Provider [phone] Allergies Active Allergy Reactions Criticality Noted Date [...] CMIA Nonreactive Nonreactive 08/04/2024 11:01 AM EST [facility] Comment: Results show no [...] DO LAB BLOOD ORDERABLES Final R esult [facility] [address] [place] [address], from Last 3 Months or Most Recently Relevant to Health Maintenance Insurance MEDICARE PART A & B [facility] Care Teams Engraver Set Up Operator Relationship Specialty Start Date End Date Esha Corbin MD [address] [place] [address] PCP - General 08/01/24
--- OUTSIDE RECORDS SUMMARY | 2024-11-27 17:08 | XMS_ITS | Continuity of Care Document ---
Author Organization [facility] Address [address] [place] [address] Phone Care Team Providers Care Vocational Evaluator Name Role Phone David Haddad MD, FACS [...] Providers Copied on Encounter OFFICE/OUTPA TIENT VISIT, [facility], [address] [facility] [address], [place], [id number], [place] tel: [phone] [place] 3 Varicose Veins With Inflammation Sep-0 6 3 Wixon Dann er. 4750 [facility], [address], [id number] , [place]. tel: [phone] Referring Provider: David Covarrubias, [facility] [address], [place], [address]. tel:[phone] [facility], [address] [place] [address], [place], [id number], [place] tel: [phone] [facility] Varicose Veins With InflammationVen ous insufficiency, ChronicSwelling of limbPostphlebet ic syndrome with inflammation Sep-0 4 3 Viviane Rodriguez. 4750 [facility], Ivan [address] [place] [address], [id number] . tel: [phone] OFFICE/OUTPA TIENT VISIT, [facility], [facility]0 [facility] [address], [place], [id number], [place] tel: [phone] [place] 3 Varicose Veins With Inflammation Jan- 3 Geexon Dann er. 4750 [facility], [facility] [address], [place], [id number] , [place]. tel: [phone] Referring Provider: David Covarrubias, [facility] [address], [address]. tel:[phone] [facility], [address] [place], [place] [address], [place], [id number], [place] tel:[phone] Procedure No Information 3 Catie Quigley er. [address], [id number] , . tel: [phone] Referring Provider: David Covarrubias, [address] [place] [address], [address]. tel:[phone] OFFICE/OUTPA TIENT VISIT, [facility], [address] [place] [address], [id number], tel: [phone] [place] 3 Varicose Veins With Inflammation Nov- 2- 3 Wixtatum Quigley er. [address] [place] [address], [id number] , [place]. tel: [phone] Referring Provider: David Covarrubias, [address] [place] [address], [address]. tel:[phone] OFFICE/OUTPA TIENT VISIT, [facility], [address] [place] [address], [id number], tel: [phone] [place] 3 Postphlebetic syndrome with inflammation Nov-0 3 Catie Quigley er. [address] [place] [address], [id number] , [place]. tel: [phone] Referring Provider: Hemal Miranda, [facility] [address] [place] [address], [address]. tel:[phone] [facility], [address] [place] [address], [id number], tel: [phone] [facility] No Information 0 3 Catie Quigley er. [address] [place] [address], [id number] , [place]. tel: [phone] Family History Family Member Type Diagnosis Age At Onset Family Hx of Problem (finding) Obesity Family Hx of Problem (finding) Varicose Veins Family Hx of Problem (finding) DVT Family Hx of Problem (finding) Diabetes mellitus Family Hx of Problem (finding) hypertension Payers Payer name Insurance type Covered libertarian ID Authorlamonta donnieon(s) [employer] Choice PPO Medicare Plan CI [id number] Social History Type Description Quantity Date Captured [...]
--- OUTSIDE RECORDS SUMMARY | 2024-11-27 17:08 | XMS_ITS | Continuity of Care Document ---
Author Organization [facility] Address [address] [facility] [address] [place] [address] Phone Care Team Providers Care Wet Mixer Name Role Phone Karo Harp, Anitha SAN [...] Diagnoses Date Provider Providers Copied on Encounter [facility], [address] [place] [address], [id number] , tel:[phone] [facility] No Information 4 Karo Welsh. 36[address] [facility] [address], [id number] , . tel:[phone] Referring Provider: Radha Martins MD C, [address], [address] . tel:[phone] Office outpt new 30 min [facility], 3601 [facility] [address], [id number] , tel:[phone] [facility] Bilateral Leg CVI & Lt. foot Venous Stasis Ulcer (chief complaint) Varicose veins with ulcerVaricose veins with other complicationsObesity Diabetes Mellitus Type 2, Uncomplicated 4 Karo Welsh. [address] [facility], [address], [place], [place], [id number] , [place]. tel:[phone] Referring Provider: Radha Martins MD C, [address] [facility] [address], [place], [address] . tel:[phone] Family History Family Member Type Diagnosis Age At Onset No Information Payers Payer name Insurance type Covered democrat ID Authoriza tion(s) [employer] Hmo [place] [id number] Social History Type Description Quantity Date Captured [...] LLE vein stripping (2003 in [place]) then Tx'ed by other surgeons in [place] up to last yr. Pt. has had significant Bilateral LLE below the knee dark brown discoloration (Lt. > Rt.) & Lt. LLE Ulcer in Lt. Medial Malleolar area being treated at present by [facility] Wound Care Dept. (Dr. Carlos), but [...]
== END 2024-11-27 15:30 | disposition home or self-care (01) ==
LOC: HO.HKA 14:34
PROVIDERS: PCP Internal Medicine; Visit Provider Internal Medicine Hypertension Specialist
DX: R42 Dizziness and giddiness (principal); I10 Essential (primary) hypertension
CPT/HCPCS: 99214

== ENCOUNTER → 2024-11-27 14:33 | Outpatient (BNVA) | payer MEDICARE, MEDICAID, SELFPAY | PROVIDERS: PCP Internal Medicine; Visit Provider Internal Medicine Hypertension Specialist | DX: R42 Dizziness and giddiness (principal); I10 Essential (primary) hypertension | CPT/HCPCS: 99212 ==

== ENCOUNTER 2024-12-01 09:00 | Outpatient (AMB) | payer MEDICARE, MEDICAID, SELFPAY ==
[2024-12-01 09:10] VITALS: BP 130/80; PULSE 89; RESP 20; TEMP 36.6; O2SAT 98; BMI 42.1
--- NOTE | 2024-12-01 09:10 | MHC.PC.OV ---
Vital Signs 12/01/24 09:10 Height 5 ft 9 in Weight 285 lb BMI 42.1 BP 130/80 Blood Pressure Location Lt brachial Position Sitting Respiration 20 Pulse 89 Pulse Source Pulse Oximeter Temp 97.9 F Temp Source Oral Pulse Oximetry (%) 98 Oxygen Delivery Method Room Air Intake Visit Reasons: 4m follow up Intake Note: Pt is here today for a 4 months follow up visit. Allergies A & D Allergy (Severe, Verified 12/01/24 09:11) anaphylaxis bacitracin [BACITRACIN] Allergy (Severe, Verified 12/01/24 09:11) SEIZURE , anaphylaxis losartan Allergy (Intermediate, Verified 12/01/24 09:11) Angioedema Sulfa (Sulfonamide Antibiotics) Allergy (Mild, Verified 12/01/24 09:11) SWELLING adhesive tape Allergy (Verified 12/01/24 09:11) Rash atenolol Allergy (Verified 12/01/24 09:11) Heart block AV second degree gabapentin Allergy (Verified 12/01/24 09:11) Hives, elevated BP, leg twitching dapagliflozin [From Farxiga] Adverse Reaction (Intermediate, Verified 12/01/24 09:11) Abdominal Pain dulaglutide [From Trulicity] Adverse Reaction (Intermediate, Verified 12/01/24 09:11) Diarrhea, vomiting lisinopril Adverse Reaction (Intermediate, Verified 12/01/24 09:11) Dizziness lamotrigine Adverse Reaction (Verified 12/01/24 09:11) elevated BP, dizziness sweating tirzepatide [From Mounjaro] Adverse Reaction (Verified 12/01/24 09:11) Constipation losartan Allergy (Uncoded 12/01/24 09:11) feeling like he will pass out SSRI Adverse Reaction (Intermediate, Uncoded 12/01/24 09:11) DECREASE LIBIDO Medication List - Last Reconciled 12/01/24 by Esha Corbin MD amlodipine 2.5 mg PO DAILY blood sugar diagnostic ([employer] Ultra Test strips) test blood sugar once a day blood-glucose meter ([employer] Ultra2 Meter kit) As directed blood-glucose sensor ([employer] G7 Sensor device) As directed CPAP (CPAP Machine/Device) auto PAP 6-20 cm with heated humidification with needed supplies diphenhydramine HCl (Benadryl) 50 mg (2 x 25 mg) PO Q6H PRN hydralazine 10 mg PO DAILY lancets (Mobile ActionTouch UltraSoft Lancets) TID lancets (Mobile ActionTouch Delica Lancets) test blood sugar daily lancing device with lancets ([employer] Delica Lancing Device kit) testing blood sugar once daily meclizine 12.5 mg PO ONCE PRN metformin ER 1,500 mg (2 x 750 mg) PO DAILY Ozempic (semaglutide) 0.25 mg (0.368 mL) subcut QWEEK NS simvastatin 40 mg PO DAILY warfarin 7.5 mg PO DAILY Tobacco use date assessed: 12/01/24 Dental Screening Dental Screen Date: 09/18/24 HPI 4m follow up HPI Details Pt presents for f/u HTN, hyperlipid. DM2. 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 He reports fluctuating blood pressure with the episodes of lightheadedness and dizziness. Patient continues to check his blood pressure multiple times during a day. [facility] Medical History Heart block AV second degree Hypertension DM type 2 (diabetes mellitus, type 2) Factor 5 Leiden mutation, heterozygous Vitamin B 12 deficiency Dizziness Annual physical exam Skin abnormalities STD (male) Venous (peripheral) insufficiency Obesity Hyperlipidemia PVD (peripheral vascular disease) DVT (deep venous thrombosis) SOB (shortness of breath) Surgical History Hx of esophagogastroduodenoscopy Hx of colonoscopy H/O vascular surgery Family History Father CVD (cardiovascular disease) Mother CVD (cardiovascular disease) Daughter No problems noted. Son No problems noted. Social History Household Members: Spouse and Significant Other Housing: House Are you a primary care management specialist to a significant other at home: No Do you presently have visiting nurse or other home services: No Alcohol intake: former Patient Tobacco Use Status: Former Tobacco user Tobacco use type: Cigarette e-Cigarette/Vaping Use: Never Used Second Hand Smoke Exposure: No (none) service: No Current occupational status: employed Cognitive needs: No Hearing needs: No Vision needs: No Questionnaire PHQ-9 Over the last 2 weeks, how often have you been bothered by any of the following problems? 1. Little interest or pleasure in doing things: not at all 2. Feeling down, depressed, or hopeless: not at all 3. Trouble falling or staying asleep, or sleeping too much: not at all 4. Feeling tired or having little energy: not at all 5. Poor appetite or overeating: not at all 6. Feeling bad about yourself - or that you are a failure or have let yourself or your family down: not at all 7. Trouble concentrating on things, such as reading the newspaper or watching television: not at all 8. Moving or speaking so slowly that other people could have noticed. Or the opposite - being so fidgety or restless that you have been moving around a lot more than usual: not at all 9. Thoughts that you would be better off or of hurting yourself in some way: not at all Total score: 0 Depression Screening Interpretation: Negative Depression Screening Done: Yes 03668 - PHQ-9 Billing: Yes Source: Developed by Drs. Marco Antonio Zhu, Ginger Freed, Se Bahena and colleagues, with an educational teresita from [email or web address]. Thrive Questionnaire Date Thrive assessed: 12/01/24 I am a: Patient What is your living situation today?: I have a steady place to live Within the past 12 months, did the food you bought not last and you didn't have the money to get more?: I choose not to answer this question Within the past 12 months, did you worry whether your food would run out before you got money to buy more?: I choose not to answer this question Do you have trouble paying for medicines?: I choose not to answer this question Do you have trouble getting transportation to medical appointments?: I choose not to answer this question Do you have trouble paying your heating and electricity bill?: I choose not to answer this question Do you have trouble taking care of your child, family member or friend?: I choose not to answer this question Do you have trouble with day-to-day activities such as bathing, preparing meals, shopping, managing finances, etc.?: I choose not to answer this question Are you currently unemployed and looking for a job?: I choose not to answer this question Are you interested in more education?: I choose not to answer this question Please select the resources that you would like help with: None Currently or been in a relationship where the following occur: I choose not to answer THRIVE Score: 0 ANISA-7 AMB Questionnaire ANISA-7 Date ANISA - 7 assessed: 12/01/24 Feeling nervous, anxious, or on edge: 0 = Not at all Not being able to stop or control worryin = Not at all Worrying too much about different things: 0 = Not at all Trouble relaxin = Not at all Being so restless that it is hard to sit still: 0 = Not at all Becoming easily annoyed or irritable: 0 = Not at all Feeling afraid as if something awful might happen: 0 = Not at all Total ANISA-7 score (0-4 normal; 5-9 mild; 10-14 moderate; 15-21 severe): 0 Source: Developed by Drs. Marco Antonio Zhu, Ginger Freed, Se Bahena and colleagues, with an educational teresita from [email or web address]. ANISA-7 Assessment Billing ANISA-7 Assessment Tool: ANISA-7 Assessment 32691 Review of Systems Const All systems reviewed & are unremarkable except as noted in HPI and below Eyes Reports no additional complaints ENT Reports no additional complaints Card Reports no additional complaints Resp Reports no additional complaints GI Reports no additional complaints Physical exam (Primary Care) Vital Signs: Last Vital Signs Temp 97.9 F 12/01/24 09:10 Pulse 89 12/01/24 09:10 Resp 20 12/01/24 09:10 BP 130/80 12/01/24 09:10 Pulse Ox 98 12/01/24 09:10 Oxygen Delivery Method Room Air 12/01/24 09:10 BMI result Body Mass Index 42.1 Tobacco/Smoking Status: Tobacco use Status Tobacco use date assessed 12/01/24 12/01/24 09:13 Patient Tobacco Use Status Former Tobacco user 12/01/24 09:13 Tobacco use type Cigarette 12/01/24 09:13 e-Cigarette/Vaping Use Never Used 12/01/24 09:13 PHQ-9: PHQ-9 Score PHQ-9: Total score 0 12/01/24 09:17 Depression Screening Interpretation: Negative Thrive Assessment: Date of Thrive Assessment Date Thrive assessed 12/01/24 12/01/24 09:17 Currently or been in a relationship where the following occur: I choose not to answer Const General: no acute distress HENMT Head: Yes normal to inspection Face and sinus: Yes normal facial exam Eyes General: appearance normal, both eyes and all related structures Neck Neck: Yes no lymphadenopathy and Yes supple Resp Effort & Inspection: normal respiratory effort Auscultation: clear to auscultation bilaterally Cardio Rhythm: regular rhythm Heart sounds: S1 normal heart sound present and S2 normal heart sound present GI Inspection: Yes normal to inspection Palpation (GI): Soft to palpation Percussion: Yes normal to percussion Auscultation: normal bowel sounds Coding Level of Care Code Est Pt Level 4 (31650) Diagnoses Type 2 diabetes mellitus without complication, without long-term current use of insulin E11.9 Diabetes mellitus terminal system operator insulin use: without terminal system operator use Diabetes mellitus complication status: without complication APOLLO (obstructive sleep apnea) G47.33 Hyperlipidemia E78.5 Primary hypertension I10 Hypertension type: primary hypertension Additional Codes ANISA-7 Assessment Billing - ANISA-7 Assessment Tool: ANISA-7 Assessment 87096 ([id number]) PHQ-9 - 91849 - PHQ-9 Billing: Yes ([id number]) Assessment & Plan Assessment & Plan (1) DM type 2 (diabetes mellitus, type 2): Comment: Trulicity cause diarrhea Code(s): E11.9 - Type 2 diabetes mellitus without complications Category: Medical Qualifiers: Diabetes mellitus alf insulin use: without terminal system operator use Diabetes mellitus complication status: without complication Qualified Code(s): E11.9 - Type 2 diabetes mellitus without complications Plan: A1c is 7.1. ADA diet increase exercise weight loss discussed with the patient. Ozempic 0.25 mg weekly will be started. Patient will follow-up in 3 months with a fasting labs before (2) APOLLO (obstructive sleep apnea): Code(s): G47.33 - Obstructive sleep apnea (adult) (pediatric) Category: Medical Plan: Continue CPAP (3) Hyperlipidemia: Code(s): E78.5 - Hyperlipidemia, unspecified Category: Medical Plan: Continue statin (4) Hypertension: Comment: Could not tolerate lisinopril causes dizziness, atenolol caused second-degree AV, losartan caused chest pain and itching, started on amlodipine 2.5 mg recently Code(s): I10 - Essential (primary) hypertension Category: Medical Qualifiers: Hypertension type: primary hypertension Qualified Code(s): I10 - Essential (primary) hypertension Plan: Continue current medications follow-up with nephrology Orders: Orders Comprehensive [place]. Panel Fast 3 Months E11.9 - Type 2 diabetes mellitus without complications, I10 - Essential (primary) hypertension Hemoglobin A1c 3 Months E11.9 - Type 2 diabetes mellitus without complications, I10 - Essential (primary) hypertension Lipid Panel 3 Months E11.9 - Type 2 diabetes mellitus without complications, I10 - Essential (primary) hypertension Microalbumin, Random (w Creat) 3 Months E11.9 - Type 2 diabetes mellitus without complications, I10 - Essential (primary) hypertension Medications: New Ozempic (semaglutide) 0.25 mg (0.368 mL) subcut QWEEK 3 mL 2RF NS
--- OUTSIDE RECORDS SUMMARY | 2024-12-01 09:46 | XMS_ITS | Clinical Summary ---
Author Organization [facility] Address [address] [place] [address] Care Team Providers Care Lead Custodian Name Role Phone Esha Corbin MD Primary Care Provider [phone] Allergies Active Allergy Reactions Criticality Noted Date [...] CMIA Nonreactive Nonreactive 08/04/2024 11:01 AM EST [facility] Comment: Results show no [...] DO LAB BLOOD ORDERABLES Final R esult [facility] [address] [place] [address], from Last 3 Months or Most Recently Relevant to Health Maintenance Insurance YUL[address]SA [address] [place] [id number] MEDICARE PART A & B [facility] Care Teams Lead Custodian Relationship Specialty Start Date End Date Esha Corbin MD [address] [place] [address] PCP - General 08/01/24
--- OUTSIDE RECORDS SUMMARY | 2024-12-01 09:47 | XMS_ITS | Clinical Summary ---
Author Organization [employer] Address [address] [facility] 7t [place] [address] Care Team Providers Care Ticket Taker Name Role Phone Unavailable Primary Care Provider [...] Insurance [address]62 [address] [place] [id number] [place] [phone] [facility] [address] [place] [id number] [facility] STAND ADULT [address] [place] [id number] [address] [place] [id number] [address] [facility] [address] [place] [id number]
--- OUTSIDE RECORDS SUMMARY | 2024-12-01 09:47 | XMS_ITS | Continuity of Care Document ---
Author Organization [facility] Address [address] [place] [address] Phone Care Team Providers Care Climate Change Analyst Name Role Phone David Haddad MD, FACS [...] Providers Copied on Encounter OFFICE/OUTPA TIENT VISIT, [facility], [address] [facility] [address], [place], [id number], [place] tel: [phone] [place] 3 Varicose Veins With Inflammation Sep-0 6 3 Wixon Dann er. 4750 [facility], [address], [id number] , [place]. tel: [phone] Referring Provider: David Covarrubias, [facility] [address], [place], [address]. tel:[phone] [facility], [address] [place] [address], [place], [id number], [place] tel: [phone] [facility] Varicose Veins With InflammationVen ous insufficiency, ChronicSwelling of limbPostphlebet ic syndrome with inflammation Sep-0 4 3 Viviane Rodriguez. 4750 [facility], Ivan [address] [place] [address], [id number] . tel: [phone] OFFICE/OUTPA TIENT VISIT, [facility], [facility] [address], [place], [id number], [place] tel: [phone] [place] 3 Varicose Veins With Inflammation Jan- 3 Geexon Dann er. 47[address] [facility], [place] [address], [place], [id number] , [place]. tel: [phone] Referring Provider: David Covarrubias, [facility] [address], [address]. tel:[phone] [facility], [address] [place], [place] [address], [place], [id number], [place] tel:[phone] Procedure No Information 3 Catie Quigley er. [address], [id number] , . tel: [phone] Referring Provider: David Covarrubias, [address] [place] [address], [address]. tel:[phone] OFFICE/OUTPA TIENT VISIT, [facility], [address] [place] [address], [id number], tel: [phone] [place] 3 Varicose Veins With Inflammation Nov- 2- 3 Wixtatum Quigley er. [address] [place] [address], [id number] , [place]. tel: [phone] Referring Provider: David Covarrubias, [address] [place] [address], [address]. tel:[phone] OFFICE/OUTPA TIENT VISIT, [facility], [address] [place] [address], [id number], tel: [phone] [place] 3 Postphlebetic syndrome with inflammation Nov-0 3 Catie Quigley er. [address] [place] [address], [id number] , [place]. tel: [phone] Referring Provider: Hemal Miranda, [facility] [address] [place] [address], [address]. tel:[phone] [facility], [address] [place] [address], [id number], tel: [phone] [facility] No Information 0 3 Catie Quigley er. [address] [place] [address], [id number] , [place]. tel: [phone] Family History Family Member Type Diagnosis Age At Onset Family Hx of Problem (finding) Obesity Family Hx of Problem (finding) Varicose Veins Family Hx of Problem (finding) DVT Family Hx of Problem (finding) Diabetes mellitus Family Hx of Problem (finding) hypertension Payers Payer name Insurance type Covered libertarian ID Authorlamonta donnieon(s) [employer] Choice PPO Medicare Plan CI [id number] Social History Type Description Quantity Date Captured [...]
--- OUTSIDE RECORDS SUMMARY | 2024-12-01 09:47 | XMS_ITS | Continuity of Care Document ---
Author Organization [facility] Address [address] [facility] [address] [place] [address] Phone Care Team Providers Care Press Operator Assistant Name Role Phone Karo Harp, Anitha SAN [...] Diagnoses Date Provider Providers Copied on Encounter [facility], [address] [place] [address], [id number] , tel:[phone] [facility] No Information 4 Karo Welsh. [address] [facility] [address], [place], [id number] , . tel:[phone] Referring Provider: Radha Martins MD C, [address], [address] . tel:[phone] Office outpt new 30 min [facility], [address] [facility] [address], [place], [id number] , tel:[phone] [facility] Bilateral Leg CVI & Lt. foot Venous Stasis Ulcer (chief complaint) Varicose veins with ulcerVaricose veins with other complicationsObesity Diabetes Mellitus Type 2, Uncomplicated 4 Karo Welsh. [address] [facility], [address], [place], [place], [id number] , [place]. tel:[phone] Referring Provider: Radha Martins MD C, [address] [facility] [address], [place], [address] . tel:[phone] Family History Family Member Type Diagnosis Age At Onset No Information Payers Payer name Insurance type Covered democrat ID Authoriza tion(s) [employer] Hmo OCN [place] [id number] Social History Type Description Quantity Date Captured [...] LLE vein stripping (2003 in [place] of [place]) then Tx'ed by other surgeons in [place] up to last yr. Pt. has had significant Bilateral LLE below the knee dark brown discoloration (Lt. > Rt.) & Lt. LLE Ulcer in Lt. Medial Malleolar area being treated at present by [facility] Wound Care [facility] (Dr. Carlos), [...]
== END 2024-12-01 09:41 | disposition home or self-care (01) ==
LOC: HO.HMCC 09:01
PROVIDERS: PCP Internal Medicine; Visit Provider Internal Medicine
DX: E11.9 Type 2 diabetes mellitus without complications (principal); G47.33 Obstructive sleep apnea (adult) (pediatric); E78.5 Hyperlipidemia, unspecified; I10 Essential (primary) hypertension

== ENCOUNTER → 2024-12-01 09:00 | Outpatient (BNVA) | payer MEDICARE, MEDICAID, SELFPAY | PROVIDERS: PCP Internal Medicine; Visit Provider Internal Medicine | DX: E11.9 Type 2 diabetes mellitus without complications (principal); E78.5 Hyperlipidemia, unspecified; I10 Essential (primary) hypertension; G47.33 Obstructive sleep apnea (adult) (pediatric) | CPT/HCPCS: 96127; 99212 ==

== ENCOUNTER 2025-01-09 10:06 | Outpatient (AMB) | payer MEDICARE, MEDICAID, SELFPAY ==
[2025-01-09 10:13] VITALS: BP 132/84; PULSE 100; O2SAT 96; BMI 41.8
--- NOTE | 2025-01-09 10:13 | HO.NEPHOV_ITS ---
Vital Signs 01/09/25 10:13 Height 5 ft 9 in Weight 283 lb BMI 41.8 BP 132/84 Blood Pressure Location Rt brachial Position Sitting Pulse 100 Pulse Source Pulse Oximeter Pulse Oximetry (%) 96 Oxygen Delivery Method Room Air Intake Visit Reasons: 1 Month follow up/ Conf Contract Administrative Assistant Required: No Accompanied by: Spouse Allergies A & D Allergy (Severe, Verified 01/09/25 10:14) anaphylaxis bacitracin [BACITRACIN] Allergy (Severe, Verified 01/09/25 10:14) SEIZURE , anaphylaxis losartan Allergy (Intermediate, Verified 01/09/25 10:14) Angioedema Sulfa (Sulfonamide Antibiotics) Allergy (Mild, Verified 01/09/25 10:14) SWELLING adhesive tape Allergy (Verified 01/09/25 10:14) Rash atenolol Allergy (Verified 01/09/25 10:14) Heart block AV second degree gabapentin Allergy (Verified 01/09/25 10:14) Hives, elevated BP, leg twitching dapagliflozin [From Farxiga] Adverse Reaction (Intermediate, Verified 01/09/25 10:14) Abdominal Pain dulaglutide [From Trulicity] Adverse Reaction (Intermediate, Verified 01/09/25 10:14) Diarrhea, vomiting lisinopril Adverse Reaction (Intermediate, Verified 01/09/25 10:14) Dizziness lamotrigine Adverse Reaction (Verified 01/09/25 10:14) elevated BP, dizziness sweating tirzepatide [From Mounjaro] Adverse Reaction (Verified 01/09/25 10:14) Constipation losartan Allergy (Uncoded 12/01/24 09:11) feeling like he will pass out SSRI Adverse Reaction (Intermediate, Uncoded 12/01/24 09:11) DECREASE LIBIDO Medication List - Last Reconciled 01/09/25 by Guido Urbano MD amlodipine 2.5 mg PO DAILY blood sugar diagnostic (Un-Lease.com Ultra Test strips) test blood sugar once a day blood-glucose meter (RewardSnapuch Ultra2 Meter kit) As directed blood-glucose sensor (Quintic G7 Sensor device) As directed CPAP (CPAP Machine/Device) auto PAP 6-20 cm with heated humidification with needed supplies diphenhydramine HCl (Benadryl) 50 mg (2 x 25 mg) PO Q6H PRN hydralazine 10 mg PO DAILY lancets (OneTouch UltraSoft Lancets) TID lancets (RewardSnapuch Delica Lancets) test blood sugar daily lancing device with lancets (TheFriendMail Lancing Device kit) testing blood sugar once daily meclizine 12.5 mg PO ONCE PRN metformin ER 1,500 mg (2 x 750 mg) PO DAILY Ozempic (semaglutide) 0.5 mg (0.736 mL) subcut QWEEK NS simvastatin 40 mg PO DAILY warfarin 7.5 mg PO DAILY HPI Comments Details: 54-year-old man with a history of obesity and obstructive sleep apnea referred for management of hypertension. He has had hypertension for almost 4 years. Previously was on atenolol. He developed bradycardia therefore atenolol was discontinued. He was subsequently placed on losartan 50 mg. He has had episodes of low blood pressure. He was treated with gabapentin and developed a rash which was discontinued. Subsequently replace with Lamictal and he reacted to this as well which caused significant weakness. He had mild hyponatremia 133. Blood pressure spiked to 220 mm Hg systolic he was in the hospital. After discontinuing the medication blood pressure stabilized. He is here for further evaluation. History of factor 5 laden deficiency. He is on Coumadin. History of obesity 09/08/2024 ;Here for follow-up. Underwent 24 hour ABPM. He has been experiencing some itching and a feeling of tongue swelling while on losartan.No cough. 09/25/24 ;Doing better with Meclizine;No further vertigo ;Still feels dizzy when he walks 09/29/2024. He continues to feel dizzy when he walks. Blood pressures spikes up when he walks. He was in the emergency room with a systolic blood pressure 180. 10/27/24 ;Tolerating Hydralazine ; Spikes up randomly ; Associated with sweating sometimes 11/27/24 : Had an episode of dizziness with BP spike in [employer] Underwent Stress test. 01/09/25 54-year-old male presenting for hypertension management. He reports an episode a month ago whereby climbing stairs caused a significant hypertensive spike, estimated at a high level, accompanied by weakness and lightheadedness. Since then, he has eliminated coffee from his intake and substituted it with green tea. This shift in habit, along with controlled exercise, has resulted in less erratic blood pressure recordings, although readings still flourish upon exertion reaching values such as 157/90 after moderate activity. His blood pressure is typically stable when at rest, usually reading around 120/75, and current treatment includes Amlodipine and Hydralazine, with occasional need for additional Hydralazine. Concurrent management of long- standing Type 2 Diabetes Mellitus shows improvement with Ozempic, maintaining glucose levels under 200 mg/dL predominantly when adhering to dietary measures. Previously, a colonoscopy identified colonic polyps, necessitating a follow-up that is currently postponed due to ongoing concerns regarding autonomic instability. The patient is pursuing further specialist consultations for suspected autonomic dysfunction directly affecting his stability and general wellbeing post-physical exertion. [facility] Medical History Heart block AV second degree Hypertension DM type 2 (diabetes mellitus, type 2) Factor 5 Leiden mutation, heterozygous Vitamin B 12 deficiency Dizziness Annual physical exam Skin abnormalities STD (male) Venous (peripheral) insufficiency Obesity Hyperlipidemia PVD (peripheral vascular disease) DVT (deep venous thrombosis) SOB (shortness of breath) Surgical History Hx of esophagogastroduodenoscopy Hx of colonoscopy H/O vascular surgery Family History Father CVD (cardiovascular disease) Mother CVD (cardiovascular disease) Daughter No problems noted. Son No problems noted. Social History Household Members: Spouse and Significant Other Housing: House Are you a primary critical care unit nurse to a significant other at home: No Do you presently have visiting nurse or other home services: No Alcohol intake: former Patient Tobacco Use Status: Former Tobacco user Tobacco use type: Cigarette e-Cigarette/Vaping Use: Never Used Second Hand Smoke Exposure: No (none) service: No Current occupational status: employed Cognitive needs: No Hearing needs: No Vision needs: No Physical Exam Vital Signs: Last Vital Signs Pulse 100 01/09/25 10:13 BP 132/84 01/09/25 10:13 Pulse Ox 96 01/09/25 10:13 Oxygen Delivery Method Room Air 01/09/25 10:13 BMI result Body Mass Index 41.8 Comfortable Neck supple no JVD. Lungs entry equal no rales. Heart S1-S2 heard no gallop or rub. Abdomen soft nontender. Neuro alert awake oriented. No asterixis. Extremities no edema. Results Reviewed Nephrology Results: Hgb 15.3 g/dl (14.0-18.0) 11/10/24 WBC 8.6 X10*3/uL (4.8-10.8) 11/10/24 Plt Count 213 X10*3/uL (160-400) 11/10/24 Sodium 137 mmol/L (135-145) 11/10/24 Potassium 4.5 mmol/L (3.3-5.1) 11/10/24 Chloride 103 mmol/L (96-108) 11/10/24 Carbon Dioxide 27 mmol/L (22-29) 11/10/24 BUN 15 mg/dL (9-16) 11/10/24 Creatinine 0.88 mg/dL (0.5-1.4) 11/10/24 Calcium 9.0 mg/dL (8.4-10.2) 11/10/24 Assessment & Plan Assessment & Plan (1) Vertigo: Code(s): R42 - Dizziness and giddiness Category: Medical (2) Hypertension: Comment: Could not tolerate lisinopril causes dizziness, atenolol caused second-degree AV, losartan caused chest pain and itching, started on amlodipine 2.5 mg recently Code(s): I10 - Essential (primary) hypertension Category: Medical Qualifiers: Hypertension type: primary hypertension Qualified Code(s): I10 - Essential (primary) hypertension (3) Autonomic dysfunction: Code(s): G90.9 - Disorder of the autonomic nervous system, unspecified Category: Medical Plan 54 year-old man with obesity and obstructive sleep apnea with hypertension. Blood pressure well controlled at this time. He has had episodes of hypertension as well as blood pressure spikes. No orthostatic blood pressure changes today Encouraged stay on low-sodium diet continue to use CPAP regularly. 24 hour ABPM revealed well-controlled hypertension with nocturnal dipping. He had few episodes of low readings. Therefore I lowered his antihypertensive medication. Since he has had some sensation of tongue swelling with losartan - discontinued losartan. Replaced with amlodipine 2.5 mg. He is on simvastatin therefore I will keep her on a low dose of amlodipine. 09/28/2024. Repeat 24 hour blood pressure monitor revealed normal blood pressure readings while at rest. When he is up and walking systolic blood pressure increases as high as 180 year 190 mm Hg. I will add hydralazine 10 mg p.o. p.r.n. to be used during daytime 10/27/24 ;Keep current meds ; Recheck Metanephrines 11/27/24: Will refer for evaluaiton of autonomic dysfunction 01/09/25: For hypertension, management includes continued adherence to Amlodipine and Hydralazine, with an option for extra doses when needed. A 90-day prescription is beneficial for maintaining steady medication availability. I recommend continuation of dietary and lifestyle modifications for blood pressure and glucose management. Current diabetes management with Ozempic should be maintained given positive results. Concerns regarding autonomic dysfunction await specialist evaluation for further insight. The follow-up for colonic polyps remains on hold until later evaluation of autonomic symptoms at [facility] Orders: Orders Basic Metabolic Panel 4 Months G90.9 - Disorder of the autonomic nervous system, unspecified, I10 - Essential (primary) hypertension Medications: Changed From hydralazine 10 mg PO DAILY 90 tabs 0RF To hydralazine 20 mg (2 x 10 mg) PO DAILY 180 tabs 1RF Patient Instructions: - Continue taking Amlodipine and Hydralazine as prescribed. - Take an additional dose of Hydralazine if blood pressure spikes occur. - Follow dietary restrictions and incorporate green tea instead of coffee. - Continue using Ozempic for diabetes management. - Monitor general health, noting any changes in symptoms. - Await evaluation at [facility] for autonomic symptoms and contact as needed. Coding Level of Care Code Est Pt Level 4 (07483) Diagnoses Vertigo R42 Primary hypertension I10 Hypertension type: primary hypertension Autonomic dysfunction G90.9
--- OUTSIDE RECORDS SUMMARY | 2025-01-09 10:50 | XMS_ITS | Clinical Summary ---
Author Organization Formerly [facility] Address [address] [place] [address] Care Team Providers Care Supervisor [employer] Name Role Phone Esha Corbin MD Primary Care Provider [phone] Allergies Active Allergy Reactions Criticality Noted Date [...] COVID-19 Vaccine ( - 2023- season) 2024 Influenza Vaccine 03/06/2025 08/03/2024 HIV Screening Completed 08/01/2024 Procedures Procedure Name Priority Date/Time Associated Diagnosis Comments HIV 1/2 AG/AB CMIA REFLEX TO CONFIRMATION STAT 08/01/2024 9:39 PM EST from Last 3 Months or Most Recently Relevant to Health Maintenance Results * HIV 1/2 Ag/Ab CMIA Reflex to Confirmation (08/01/2024 9:39 PM EST) HIV 1/2 Ag/Ab CMIA Nonreactive Nonreactive 08/04/2024 11:01 AM EST [facility] Comment: Results show no [...] DO LAB BLOOD ORDERABLES Final R esult [facility] [address] from Last 3 Months or Most Recently Relevant to Health Maintenance Insurance [id number] [facility] [place] [id number] MEDICARE PART A & B [facility] Care Teams Supervisor [employer] Relationship Specialty Start Date End Date Esha Corbin MD [address] [place] [address] PCP - General 08/01/24
== END 2025-01-09 10:32 | disposition home or self-care (01) ==
LOC: HO.HKA 10:07
PROVIDERS: PCP Internal Medicine; Visit Provider Internal Medicine Hypertension Specialist
DX: R42 Dizziness and giddiness (principal); I10 Essential (primary) hypertension; G90.9 Disorder of the autonomic nervous system, unspecified
CPT/HCPCS: 99214

== ENCOUNTER → 2025-01-09 10:06 | Outpatient (BNVA) | payer MEDICARE, MEDICAID, SELFPAY | PROVIDERS: PCP Internal Medicine; Visit Provider Internal Medicine Hypertension Specialist | DX: R42 Dizziness and giddiness (principal); I10 Essential (primary) hypertension; G90.9 Disorder of the autonomic nervous system, unspecified | CPT/HCPCS: 99212 ==

== ENCOUNTER 2025-02-03 16:15 | Outpatient (REF) | payer MEDICARE, MEDICAID, SELFPAY ==
--- OUTSIDE RECORDS SUMMARY | 2014-01-15 12:34 | XMS_ITS | Continuity of Care Document ---
Author Organization [facility] Address [address] [facility] [address] [place] [address] Phone Care Team Providers Care Erp Implementation Consultant Name Role Phone Karo Harp, Anitha SAN Unavailable Un available Allergies, Adverse Reactions, Alerts Substance Reaction Status Criticality polymyxin B Active No Information NEOMYCIN SULFATE Active No Informat ion BACITRACIN ZINC Active No Informati on bacitracin Active No Information bacitracin Active No Information Sulfa (Sulfonamide Antibiotics) Active No Information Medications Medication Instructions Dosage Effective Dates (start - stop) Status Comments Coumadin 7.5 mg tablet take 1 tablet by oral route every day - Active Procedures Procedure Date Office outpt new 30 min Advance Directives Directive Yes / No Effective Date File Name No Information Encounters Encounter Description Practice Location Reason(s) For Visit Diagnoses Date Provider Providers Copied on Encounter [facility], [address] [place] [address], [id number] , tel:[phone] [facility] No Information 4 Karo Welsh. [address]01 [facility] [place], [id number] , . tel:[phone] Referring Provider: Radha Martins MD C, [address], [address] . tel:[phone] Office outpt new 30 min [facility], [address] [facility] [place], [id number] , tel:[phone] [facility] Bilateral Leg CVI & Lt. foot Venous Stasis Ulcer (chief complaint) Varicose veins with ulcerVaricose veins with other complicationsObesity Diabetes Mellitus Type 2, Uncomplicated 4 Karo Welsh. [address] [facility], [address], [place], [place], [id number] , [place]. tel:[phone] Referring Provider: Radha Martins MD C, [address] [facility] [address], [place], [address] . tel:[phone] Family History Family Member Type Diagnosis Age At Onset No Information Payers Payer name Insurance type Covered green party ID Authoriza tion(s) [employer] Hmo [employer] [place] CAP [id number] Social History Type Description Quantity Date Captured Comments Sex Male Smoking Status No Information Chief Complaint And Reason For Visit No Information Reason For Referral Reason For Referral No Information History Of Present Illness Encounter Date Complaint History Of Prese nt Illness Bilateral Leg CVI & Lt. 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 experienced significant Lt. Leg phlebitis. Severe CVI & Lt. LLE vein stripping (2003 in state of [place]) then Tx'ed by other surgeons in [place] up to last yr. Pt. has had significant Bilateral LLE below the knee dark brown discoloration (Lt. > Rt.) & Lt. LLE Ulcer in Lt. Medial Malleolar area being treated at present by [facility] (Dr. Carlos), but has not completely resolved yet. Pt. also c/o burning, itching, pain, engorged Varicose Veins in Bilateral legs & states eventhough he has been using support stockings for many years only minimal improvement has been noted, but he will continue to utilize them. Pt. 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 Functional Status Date Functional Assessmen t No Information Instructions Date Instruction Additional Infor lincoln Follow written and v erbal instructions. Related to Varicose veins with ulcer Assessments Type Assessment Date No Information Patient Care Teams Name Effective Dates (start - stop) Status Members No Information
--- NOTE | ~2025-02-03 | CT_ITS ---
EXAMINATION: CT SINUS WITHOUT CONTRAST CLINICAL INFORMATION: Deviated nasal septum DLP: 129 mGY*cm COMPARISON: Head CT August 27, 2024 TECHNIQUE: Axial CT was performed from the upper skull to the midmandibular rami. Coronal and sagittal reformatted images were generated from the original axial data set. ALARA: The examination used one or more of the following radiation dose reduction techniques: Automated exposure control, iterative reconstruction, and/or adjustment of mA and/or KV. FINDINGS: The paranasal sinuses remain clear. Mastoid air cells are pneumatized and clear. Bony nasal septum slightly deviates toward the right by [address] No other abnormalities. CT/CT sinus wo IV con IMPRESSION: Bony nasal septum slightly deviates 2 mm toward the right. Electronically signed by: Jorge Landry MD 02/03/2025 05:39 PM EDT
--- OUTSIDE RECORDS SUMMARY | 2025-02-03 16:28 | XMS_ITS | Clinical Summary ---
Author Organization Formerly [facility] Address [address] [place] [address] Care Team Providers Care Associate Professor Plant Pathology Name Role Phone Esha Corbin MD Primary Care Provider [phone] Allergies Active Allergy Reactions Criticality Noted Date [...] 69 08/02/2024 2:01 PM EST Temperature 36.6 C (97.9 F) 08/02/2024 9:28 AM EST Respiratory Rate 18 08/02/2024 2:01 PM EST [...] 2) 2021 COVID-19 Vaccine ( season) 2024 Influenza Vaccine 03/06/2025 08/03/2024 HIV [...] DO LAB BLOOD ORDERABLES Final R esult [facility] [address] [place] [address], from Last 3 Months or Most Recently Relevant to Health Maintenance Insurance MEDICARE PART A & B [facility] Care Teams Associate Professor Plant Pathology Relationship Specialty Start Date End Date Esha Corbin MD [address] [place] [address] PCP - General 08/01/24
--- OUTSIDE RECORDS SUMMARY | 2025-02-03 16:28 | XMS_ITS ---
Author Name [facility] Organization Unknown Results Test Name/Text Value Interpretation Date Range Source Magnesium SerPl-mCnc 2.0 mg/dL Normal 08/02/2024 1.6 - 2.7 [facility] Chloride SerPl-sCnc 100.0 mmol/L Normal 08/02/2024 98 - 1 07 [facility] ALP SerPl-cCnc 56.0 U/L Normal 08/02/2024 45 - 128 [facility] T Prot SerPl-mCnc 7.5 g/dL Normal 08/02/2024 6.3 - 8.[address] BUN/Creat SerPl 20.0 Ratio Normal 08/02/2024 10 - 25 [facility] CCT Glucose SerPl-mCnc 181.0 mg/dL Above high normal 08/02/2024 65 - 99 [facility] Albumin/Glob SerPl 1.2 Ratio Normal 08/02/2024 [facility] AST SerPl-cCnc 37.0 U/L Normal 08/02/2024 10 - 55 [facility] T ALT SerPl-cCnc 24.0 U/L Normal 08/02/2024 10 - 55 [facility] T Potassium SerPl-sCnc 4.6 mmol/L Normal 08/02/2024 3.4 - 5.3 [facility] Globulin Ser Calc-mCnc 3.4 g/dL Normal 08/02/2024 1.5 - 3.9 [facility] CO2 SerPl-sCnc 24.0 mmol/L Normal 08/02/2024 22 - 33 HH CCT Bilirub SerPl-mCnc 0.6 mg/dL Normal 08/02/2024 0.2 - 1 [facility] BUN SerPl-mCnc 14.0 mg/dL Normal 08/02/2024 8 - [address] GFR/BSA.pred SerPlBld QXK-QWU-FlEBdv >90.0 Normal 08/02/2024 59 - HHCCT Calcium SerPl-mCnc 9.7 mg/dL Normal 08/02/2024 8.7 - 10.5 [facility] Creat SerPl-mCnc 0.7 mg/dL Normal 08/02/2024 0.5 - 1.3 HH CCT Albumin SerPl-mCnc 4.1 g/dL Normal 08/02/2024 3.5 - 5 [facility] Anion Gap Bld-sCnc 10.0 Normal 08/02/2024 7 - 17 [facility] Sodium SerPl-sCnc 134.0 mmol/L Below low normal 08/02/2024 1 36 - 145 [facility] Imm Granulocytes/leuk NFr Bld Auto 0.4 % Normal 08/02/2024 [facility] MCV RBC Auto 92.0 fL Normal 08/02/2024 80 - 100 [facility] PMV Bld Auto 9.3 fL Normal 08/02/2024 7.5 - 12.5 [facility] Basophils/leuk NFr Bld Auto 0.7 % Normal 08/02/2024 [facility] Lymphocytes num Bld Auto 1.39 Thou/uL Below low normal 08/02/2024 1.5 - 4.5 [facility] Hgb Bld-mCnc 14.9 g/dL Normal 08/02/2024 13 - 17.7 [facility]CT Monocytes/leuk NFr Bld Auto 6.1 % Normal 08/02/2024 [facility] Basophils num Bld Auto 0.05 Thou/uL Normal 08/02/2024 0 - 0.2 H[facility]CT MCHC RBC Auto-mCnc 33.1 g/dL Normal 08/02/2024 30 - 36 [facility] Neutrophils/leuk NFr Bld Auto 72.8 % Normal 08/02/2024 [facility]CT Eosinophil num Bld Auto 0.08 Thou/uL Normal 08/02/2024 0 - 0.7 [facility] Lymphocytes/leuk NFr Bld Auto 18.9 % Normal 08/02/2024 [facility]CT Neutrophils num Bld Auto 5.37 Thou/uL Normal 08/02/2024 2 - 7.5 [facility] RBC num Bld Auto 4.87 Mil/uL Normal 08/02/2024 4.5 - 6.2 [facility] Imm Granulocytes num Bld Auto 0.03 Thou/uL Normal 08/02/2024 0 - 0.1 H[facility]CT Hct VFr Bld Auto 45.0 % Normal 08/02/2024 39 - 54 HH CCT MCH RBC Qn Auto 30.6 pg Normal 08/02/2024 27 - [address] Monocytes num Bld Auto 0.45 Thou/uL Normal 08/02/2024 0.2 - 1.5 H[facility]CT RDW RBC Auto-Rto 12.8 % Normal 08/02/2024 11.5 - 14.5 [facility] Platelet num Bld Auto 221.0 Thou/uL Normal 08/02/2024 150 - 450 [facility]CT WBC num Bld Auto 7.4 Thou/uL Normal 08/02/2024 4 - 11 [facility]CT Eosinophil/leuk NFr Bld Auto 1.1 % Normal 08/02/2024 H[facility]CT HIV 1+2 Ab+HIV1 p24 Ag Ser EIA-aCnc Nonreactive Normal 08/04/2024 - H[facility]CT pro BNP, N-terminal <36.0 pg/mL Normal 08/02/2024 - 125 H[facility]CT Troponin T SerPl-mCnc <6.0 ng/L Normal 08/02/2024 - 23 [facility] Delta NO PREVIOUS RESULT Normal 08/02/2024 - 3 H[facility]CT D dimer FEU PPP-mCnc <150.0 ng/mL DDU Normal 08/02/2024 - 230 [facility]CT Potassium SerPl-sCnc 4.4 mmol/L Normal 08/02/2024 3.4 - 5.3 H[facility]CT CO2 SerPl-sCnc 21.0 mmol/L Below low normal 08/02/2024 22 - 33 [facility]CT Albumin/Glob SerPl 1.2 Ratio Normal 08/02/2024 [facility]CT BUN/Creat SerPl 20.0 Ratio Normal 08/02/2024 10 - 25 HH CCT Anion Gap Bld-sCnc 15.0 Normal 08/02/2024 7 - 17 HHCCT ALT SerPl-cCnc 25.0 U/L Normal 08/02/2024 10 - 55 [facility] T AST SerPl-cCnc 32.0 U/L Normal 08/02/2024 10 - 55 [facility] T ALP SerPl-cCnc 57.0 U/L Normal 08/02/2024 45 - 128 [facility] T Prot SerPl-mCnc 7.6 g/dL Normal 08/02/2024 6.3 - 8.[address] Sodium SerPl-sCnc 136.0 mmol/L Normal 08/02/2024 136 - 14 5 H[facility]CT GFR/BSA.pred SerPlBld WDB-CBG-IdLDhc >90.0 Normal 08/02/2024 59 - HHCCT Calcium SerPl-mCnc 9.0 mg/dL Normal 08/02/2024 8.7 - 10.5 H[facility]CT Globulin Ser Calc-mCnc 3.5 g/dL Normal 08/02/2024 1.5 - 3.9 HHCCT BUN SerPl-mCnc 16.0 mg/dL Normal 08/02/2024 8 - [address] Creat SerPl-mCnc 0.8 mg/dL Normal 08/02/2024 0.5 - 1.3 HH CCT Chloride SerPl-sCnc 100.0 mmol/L Normal 08/02/2024 98 - 1 07 H[facility]CT Glucose SerPl-mCnc 194.0 mg/dL Above high normal 08/02/2024 65 - 99 H[facility]CT Albumin SerPl-mCnc 4.1 g/dL Normal 08/02/2024 3.5 - 5 H[facility]CT Bilirub SerPl-mCnc 0.4 mg/dL Normal 08/02/2024 0.2 - 1 H[facility]CT Eosinophil num Bld Auto 0.09 Thou/uL Normal 08/02/2024 0 - 0.7 H[facility]CT MCHC RBC Auto-mCnc 33.8 g/dL Normal 08/02/2024 30 - 36 H[facility]CT Hgb Bld-mCnc 14.4 g/dL Normal 08/02/2024 13 - 17.7 H[facility]CT Lymphocytes/leuk NFr Bld Auto 16.3 % Normal 08/02/2024 [facility]CT Neutrophils num Bld Auto 7.16 Thou/uL Normal 08/02/2024 2 - 7.5 H[facility]CT Basophils num Bld Auto 0.06 Thou/uL Normal 08/02/2024 0 - 0.2 H[facility]CT Monocytes/leuk NFr Bld Auto 4.9 % Normal 08/02/2024 HHCCT Hct VFr Bld Auto 42.6 % Normal 08/02/2024 39 - 54 HH CCT Neutrophils/leuk NFr Bld Auto 76.7 % Normal 08/02/2024 [facility]CT Platelet num Bld Auto 227.0 Thou/uL Normal 08/02/2024 150 - 450 H[facility]CT MCH RBC Qn Auto 30.6 pg Normal 08/02/2024 27 - [address] RDW RBC Auto-Rto 12.7 % Normal 08/02/2024 11.5 - 14.5 HHCCT Monocytes num Bld Auto 0.46 Thou/uL Normal 08/02/2024 0.2 - 1.5 H[facility]CT Imm Granulocytes num Bld Auto 0.05 Thou/uL Normal 08/02/2024 0 - 0.1 HHCCT PMV Bld Auto 9.1 fL Normal 08/02/2024 7.5 - 12.5 H[facility]CT RBC num Bld Auto 4.7 Mil/uL Normal 08/02/2024 4.5 - 6.2 H HCCT Eosinophil/leuk NFr Bld Auto 1.0 % Normal 08/02/2024 H[facility]CT Basophils/leuk NFr Bld Auto 0.6 % Normal 08/02/2024 H[facility]CT Imm Granulocytes/leuk NFr Bld Auto 0.5 % Normal 08/02/2024 H[facility]CT Lymphocytes num Bld Auto 1.52 Thou/uL Normal 08/02/2024 1.5 - 4.5 HHCCT WBC num Bld Auto 9.3 Thou/uL Normal 08/02/2024 4 - 11 [facility] MCV RBC Auto 91.0 fL Normal 08/02/2024 80 - 100 [facility] Encounters Encounter Type Encounter Reason Primary Diagnosis Location Date Emergency Syncope and collapse Syncope and collapse [facility] 08/02/2024 Emergency Syncope and collapse Syncope and collapse [facility] 08/01/2024 Care Team Organization Name Specialty Phone Email Start Date End Da te [facility] 08/04/2024 10/22/2024 [facility] 08/02/2024 [facility] Esha Corbin Primary Care 08/02/2024
--- OUTSIDE RECORDS SUMMARY | 2025-02-03 16:29 | XMS_ITS | Data Portability ---
Author Organization [facility] Address [address] [place] [address] Assessment No assessment recorded. Plan of Treatment Reminders Order Date Submit Date Provider Last Modified By Organization Details Last Modified Time Details Appointments None recorde d. Lab glucose , fingers tick, blood 023 09/01/19 [email or web address] [place], [address], 13:59:19 Referral None recorde d. Procedures None recorde d. Surgeries None recorde d. Imaging None recorde d. Medication Orders None recorde d. Patient TargetsNo targets recorded. Patient Instructions Encounter Date Encounter Id Patient Instructions Last Modified By Organization Details Last Modified Time 09/01/2022 [id number] Health Education and Guidance [email or web address] Not available 09/01/2022 13:59:19 This physical does not replace the annual physical to be performed by your PCP. There may be additional screening tests that they will perform that we do not in the urgent care setting. Failure to follow up as recommended may result in significant adverse health consequences. If your symptoms worsen or you develop new symptoms that concern you, go to the emergency department for further evaluation. [email or web address] Not available 09/01/2022 13:52:23 Reason for Referral None Reported. Results Created Date Observation Date Name Description Value Unit Range Abnormal Flag Note LastModifiedBy Organization Detail LastModifiedTime 09/01/1909/01/2022 gluco se, finge rstic k, blood blood sugar - non fasting 127 mg/dL 80-140 = normal Not Available [facility] [address] [place], [address], 09/01/2022 13:24:27 09/01/19 23 09/01/2022 gluco sejune rsrosemarie k, blood blood sugar - fasting mg/dL 80-125 = normal Not Available [facility] [address] [place], [address], 09/01/2022 13:24:27 Result Notes None recorded. Problems [...] SNOMED-CT Code Diagnosis ICD10 Code Diagnosis Note [id number] [facility] [address] [place] [address] 12/29/2021 16:21:44 12/29/2021 16:55:03 [id number] [place] [address] [place] [address] 09/01/2022 11:38:27 09/01/2022 14:06:01 History and physical examination, pre-employment [id number] Z02.1 Diabetes m ellitus screening [id number] Z13.1 Health Concerns Section Related Observation LastModified by Organization Detai ls LastModified Time None Recorded Concern Status LastModified by Organization Details LastModified Time None Recorded Advance Directives Directive None Recorded Payers Insurance Date Sequence Insurance Name Policy Number Policy Duggan Covered Member ID Duggan Member ID Guarantor Name 09/01/2022 [employer] Jameel Gallardo [employer] Jameel Gallardo 01/01/2023 [employer] [facility] Jameel Gallardo [id number] Jameel Gallardo
== END 2025-02-03 16:16 | disposition home or self-care (01) ==
LOC: HO.CT 16:15
PROVIDERS: PCP Internal Medicine; Visit Provider Otolaryngology
DX: J33.0 Polyp of nasal cavity (principal); J34.2 Deviated nasal septum
CPT/HCPCS: 70486

== ENCOUNTER → 2025-02-03 16:19 | Outpatient (BNV) | payer MEDICARE, MEDICAID, SELFPAY | PROVIDERS: PCP Internal Medicine; Visit Provider Radiology Diagnostic Radiology | DX: J34.2 Deviated nasal septum (principal) | CPT/HCPCS: 70486 ==

== ENCOUNTER 2025-02-05 09:22 | Emergency (ER) | payer MEDICARE, MEDICAID, SELFPAY ==
--- OUTSIDE RECORDS SUMMARY | 2013-04-11 05:48 | XMS_ITS | Continuity of Care Document ---
Author Organization [facility] Address [address] [place] [phone] Phone Care Team Providers Care Pit Hand Name Role Phone David Haddad MD, FACS [...] Providers Copied on Encounter OFFICE/OUTPA TIENT VISIT, [facility], 4750 [facility] [address], [place], [id number], [place] tel: [phone] Paul[place] 3 Varicose Veins With Inflammation Sep-0 6 3 Wixon Dann er. 4750 [facility], [address], [id number] , [place]. tel: [phone] Referring Provider: David Covarrubias, [facility] [address], [place], [address]. tel:[phone] [facility], [address] [place] [address], [place], [id number], [place] tel: [phone] [facility] Varicose Veins With InflammationVen ous insufficiency, ChronicSwelling of limbPostphlebet ic syndrome with inflammation Sep-0 4 3 Viviane Rodriguez. 4750 [facility], Ivan [address] [place] [address], [id number] . tel: [phone] OFFICE/OUTPA TIENT VISIT, [facility], [facility]0 [facility] [address], [place], [id number], [place] tel: [phone] Pauline 3 Varicose Veins With Inflammation Jan- 3 Geexon Dann er. 4750 [facility], [facility] [address], [place], [id number] , [place]. tel: [phone] Referring Provider: David Covarrubias, [facility]0 [address], [address]. tel:[phone] [facility], [address] [place], [place] [address], [place], [id number], [place] tel:[phone] Procedure No Information 3 Catie Quigley er. [address], [id number] , . tel: [phone] Referring Provider: David Covarrubias, [address] [place] [address], [address]. tel:[phone] OFFICE/OUTPA TIENT VISIT, [facility], [address] [place] [address], [id number], tel: [phone] Pauline 3 Varicose Veins With Inflammation Nov- 2- 3 Wixtatum Quigley er. [address] [place] [address], [id number] , [place]. tel: [phone] Referring Provider: David Covarrubias, [address] [place] [address], [address]. tel:[phone] OFFICE/OUTPA TIENT VISIT, [facility], [address] [place] [address], [id number], tel: [phone] Pauline 3 Postphlebetic syndrome with inflammation Nov-0 3 Catie Quigley er. [address] [place] [address], [id number] , [place]. tel: [phone] Referring Provider: Hemal Miranda, [facility]6 [facility] [address] [place] [address], [address]. tel:[phone] [facility], [address] [place] [address], [id number], tel: [phone] [facility] No Information 0 3 Catie Quigley er. [address] [place] [address], [id number] , [place]. tel: [phone] Family History Family Member Type Diagnosis Age At Onset Family Hx of Problem (finding) Obesity Family Hx of Problem (finding) Varicose Veins Family Hx of Problem (finding) DVT Family Hx of Problem (finding) Diabetes mellitus Family Hx of Problem (finding) hypertension Payers Payer name Insurance type Covered green party ID Authorlamonta donnieon(s) [employer] Choice PPO Medicare Plan CI [id number] Social History Type Description Quantity Date Captured [...]
--- NOTE | 2025-02-05 | ECG_ITS ---
Test Reason : tachycardia Blood Pressure : */* mmHG Vent. Rate : 110 BPM Atrial Rate : 110 BPM P-R Int : 218 ms QRS Dur : 70 ms QT Int : 322 ms P-R-T Axes : 41 -9 37 degrees QTcB Int : 435 ms Sinus tachycardia with 1st degree A-V block Possible Left atrial enlargement Borderline ECG When compared with ECG of 27-Aug-2024 18:44, No significant change was found Referred By: Generic ED Physician Electronically Signed By: ALISON SEAY MD
--- NOTE | ~2025-02-05 | CT_ITS ---
EXAMINATION: CT ABDOMEN AND PELVIS WITH CONTRAST CLINICAL INFORMATION: Left lower quadrant tenderness. COMPARISON: April 05, 2024. TECHNIQUE: Multidetector volumetric images were obtained from the superior aspect of the liver through the pubic symphysis following administration 85 mL of Omnipaque 350 intravenous contrast. Sagittal and coronal reformatted images were obtained on the technologist's workstation. Oral contrast: No This CT examination was performed using dose optimization techniques as appropriate, variously including the following: *Automated exposure control *Adjustment of mA and/or kV according to patient size (this includes techniques or standardized protocols for targeted exams where dose is matched to indication/reason for exam; i.e. extremities or head) *Use of iterative reconstruction technique DLP: 1115 mGy centimeter. FINDINGS: LUNG BASES: Scarring, right lung base. 2 mm noncalcified pulmonary nodule, left lower lung lobe. LIVER, GALLBLADDER, AND BILIARY TREE: Liver measures 15 cm. Decreased enhancement pattern. No focal mass. The main hepatic vessels are patent. No intrahepatic biliary ductal dilatation. No pericholecystic fluid collection or gallbladder wall thickening. Common bile duct measures 2 mm. PANCREAS: No focal lesion. No peripancreatic fluid collections. No main pancreatic ductal dilatation. SPLEEN: 10 cm. No focal lesion. ADRENAL GLANDS: No nodular lesions. KIDNEYS AND URETERS: No hydronephrosis. No gross nephrolithiasis. No gross renal mass. Normal enhancement pattern of the renal cortex. BLADDER: Fluid-filled. GASTROINTESTINAL TRACT: Gas and fluid-filled prominent proximal to mid small bowel loops with a collapsed appearance of the distal ileal loops. There is questionable intestinal wall thickening and Few of segmental loops. Appendix is normal. No pneumatosis intestinalis. No pneumoperitoneum. No peripheral enhancing fluid collection in the peritoneal cavity. No ascites. ABDOMINAL WALL: Small fat-containing umbilical hernia. Diastases abdominal rectus muscles in the periumbilical region. Fat-containing inguinal hernias bilaterally. Prominent vessels extending from the femoral veins to the lower thorax. LYMPH NODES: Prominent mesenteric lymph nodes with mild mesenteric edema pattern. Prominent lymph nodes in the retroperitoneum. VASCULAR: Intraluminal calcifications in the femoral veins and inferior vena cava. Calcified plaques throughout the abdominal aorta wall and iliac arteries, abdominal aorta. Complex and coronary arteries. Calcified plaques, mitral valve. Prominent veins extending from the femoral veins through the lower thorax PELVIC VISCERA: Nonenlarged OSSEOUS STRUCTURES: Multilevel thoracolumbar spondylosis more conspicuous in L4-5 and L5-S1. No acute fracture. No avascular necrosis in the femoral heads. CT/CT abdomen pelvis w IV con IMPRESSION: Partial/intermittent mid to distal small bowel obstruction. Probable old/chronic venous thrombosis and collateral flow, inferior vena cava and common femoral veins. Fat-containing umbilical and inguinal hernias. Coronary artery disease and atherosclerosis disease. Calcified mitral valve. Hepatic steatosis. Fleischner guidelines were followed. Electronically signed by: Sree Mo MD 02/05/2025 11:40 AM EDT
--- NOTE | ~2025-02-05 | XR_ITS ---
EXAMINATION: XR CHEST CLINICAL INFORMATION: fever COMPARISON: May 17, 2024. TECHNIQUE: 2 views of the chest were obtained. FINDINGS: No consolidation, pleural effusion or pneumothorax. Cardiomediastinal silhouette size is normal. Multilevel thoracolumbar spondylosis. Degenerative changes in the acromioclavicular joints. XR/XR chest 2V IMPRESSION: No acute airspace disease. Spondylosis. Degenerative changes, acromioclavicular joints. Electronically signed by: Sree Mo MD 02/05/2025 10:06 AM EDT
[2025-02-05 09:25] VITALS: BP 130/89; PULSE 118; RESP 20; TEMP 36.8; O2SAT 96; BMI 39.7
[2025-02-05 09:50] LABS: MANUAL DIFF FLAG NO
[2025-02-05 09:59] LABS: Hematocrit 44.3 % (42.0-52.0); Hemoglobin 15.7 g/dl (14.0-18.0); Imm Gran Abs Auto 0.04 X10*3/uL (0.00-0.03); Imm Gran Pct Auto 0.4 % (0.0-0.4); Lymphocytes Absolute Auto 1.6 X10*3/uL (1.2-4.9); Mean Corpuscular HGB Conc 35.4 g/dl (31.0-36.0); Mean Corpuscular Hemoglobin 30.5 pg (27.0-33.0); Mean Corpuscular Volume 86.2 fL (80.0-98.0); NRBC Abs Auto 0.000 X10*3/uL (0.0-0.012); NRBC Pct Auto 0.0 /100WBC (0.0-0.2); Platelet Count 239 X10*3/uL (160-400); Red Blood Count 5.14 X10*6/uL (4.60-5.80); White Blood Count 11.1 X10*3/uL (4.8-10.8)
--- NOTE | 2025-02-05 10:00 | ED_ITS ---
HPI - General Adult General Chief complaint: Abdominal Pain Stated complaint: Fever, high heart rate Time Seen by Provider: 02/05/25 09:39 Source: patient, RN notes reviewed and old records reviewed Mode of arrival: ambulatory Limitations: no limitations History of Present Illness ED Provider: Ness HPI narrative: Patient is a 54-year-old male with history of T2 DM, HTN, HLD, factor 5 Leiden, second-degree AV block, erosive esophagitis, APOLLO, vertigo, autonomic dysfunction presenting to the emergency department with complaint of nausea, vomiting and diarrhea since Sunday night. Associated fever, lightheadedness. States symptoms began after eating a piece of fish that he cooked himself. Significant other ate a different piece of the same fish and did not have symptoms. Emesis has been nonbloody, nonbilious, no hematochezia or melena. Complaining of left lower quadrant abdominal pain and increased belching. Does note that since yesterday his stool has started to become more formed. Denies chest pain, palpitations, dyspnea. Last took Tylenol at 8:30 this morning. States he is on Ozempic and increased his dose around 2 weeks ago but feel symptoms are unrelated. MD complaint: fever, n/v/d Onset (ago): day(s) Related Data Home Medications ?Medication ?Instructions ?Recorded ?Confirmed meclizine 12.5 mg tablet 12.5 mg PO ONCE PRN dizzines s 09/29/24 01/09/25 Previous Rx's ?Medication ?Instructions ?Recorded blood-glucose meter (Clear2PayTouch #1 ea 06/02/21 Ultra2 Meter kit) lancing device with lancets kit #1 ea 06/03/21 (Clear2PayTouch Delica Lancing Device kit) diphenhydramine HCl 25 mg capsule 50 mg (2 x 25 mg) PO Q6H PRN 10/04/21 (Benadryl) allergic reaction #20 caps lancets (Clear2PayTouch UltraSoft #100 ea 07/19/22 Lancets) lancets 33 gauge (OneTouch Delica #100 ea 07/25/22 Lancets) CPAP (CPAP Machine/Device) #1 ea 08/24/22 blood sugar diagnostic (Clear2PayTouch #100 ea 02/08/23 Ultra Test strips) blood-glucose sensor (DexOnCore Golf Technology G7 #2 ea 03/13/24 Sensor device) simvastatin 40 mg tablet 40 mg PO DAILY #90 tabs 09/06 10/28 metformin 750 mg tablet,extended 1,500 mg (2 x 750 mg) PO DAILY #90 11/12/24 release 24 hr tabs Ozempic 0.25 mg or 0.5 mg (2 mg/3 0.5 mg (0.736 mL) garner bcut QWEEK #3 12/23/24 mL) subcutaneous pen injector mL (semaglutide) amlodipine 2.5 mg tablet 2.5 mg PO DAILY #90 tabs 10/28 hydralazine 10 mg tablet 20 mg (2 x 10 mg) PO DAILY # 180 01/09/25 tabs warfarin 7.5 mg tablet 7.5 mg PO DAILY #100 tabs Ozempic 1 mg/dose (4 mg/3 mL) 1 mg (0.75 mL) subcut QW [place] #3 mL 01/20/25 subcutaneous pen injector (semaglutide) amoxicillin 875 mg-potassium 1 tab PO BID #10 tabs 10/28 clavulanate 125 mg tablet ondansetron 4 mg disintegrating 4 mg PO Q8H PRN nausea and 02/05/25 tablet vomiting #10 tabs Allergies Allergy/AdvReac Type Severity Reaction Status Date / Time A & D Allergy Severe anaphylaxis Verified 02/05/25 09:29 bacitracin (BACITRACIN) Allergy Severe Verified 02/05/25 09:29 SEIZURE , anaphylaxis losartan Allergy Intermediate Angioedema Verified 02/05/25 09:29 Sulfa (Sulfonamide Allergy Mild SWELLING Verified 02/05/25 09:29 Antibiotics) adhesive tape Allergy Rash Verified 02/05/25 09:29 atenolol Allergy Heart Verified 02/05/25 09:29 block AV second degree gabapentin Allergy Hives, Verified 02/05/25 09:29 elevated BP, leg twitching dapagliflozin (From [facility]) AdvReac Intermediate Abdominal Verified 02/05/25 09:29 Pain dulaglutide (From [facility]) AdvReac Intermediate Diarrhea, Verified 02/05/25 09:29 vomiting lisinopril AdvReac Intermediate Dizziness Verified 02/05/25 09:29 lamotrigine AdvReac elevated Verified 02/05/25 09:29 BP, dizziness sweating tirzepatide (From [facility]) AdvReac Constipatio Verified 02/05/25 09:29 n losartan Allergy feeling Uncoded 02/05/25 09:29 like he will pass out SSRI AdvReac Intermediate DECREASE Uncoded 02/05/25 09:29 LIBIDO Review of Systems 2 Review of Systems: As per HPI Yes all other systems are reviewed and are negative Constitutional: Constitutional: Reports as per [facility] Past Medical History Medical History Heart block AV second degree Hypertension DM type 2 (diabetes mellitus, type 2) Factor 5 Leiden mutation, heterozygous Vitamin B 12 deficiency Dizziness Annual physical exam Skin abnormalities STD (male) Venous (peripheral) insufficiency Obesity Hyperlipidemia PVD (peripheral vascular disease) DVT (deep venous thrombosis) SOB (shortness of breath) Surgical History Hx of esophagogastroduodenoscopy Hx of colonoscopy H/O vascular surgery Family History Family History Father CVD (cardiovascular disease) Mother CVD (cardiovascular disease) Daughter No problems noted. Son No problems noted. Social History Social History Household Members: Spouse and Significant Other Housing: House Are you a primary career development manager to a significant other at home: No Do you presently have visiting nurse or other home services: No Alcohol intake: former Patient Tobacco Use Status: Former Tobacco user Tobacco use type: Cigarette e-Cigarette/Vaping Use: Never Used Second Hand Smoke Exposure: No (none) Advance Directives: No Advance Directives Information Provided: Yes service: No Current occupational status: employed Cognitive needs: No Hearing needs: No Vision needs: No Physical Exam ED Vital Signs: Vital Signs - 24 hr 02/05/25 09:25 02/05/25 11:19 02/05/25 11:22 Temperature 98.3 F 98.3 F Pulse Rate 118 H 100 104 H Respiratory Rate 20 16 18 Blood Pressure 130/89 95/69 109/77 Pulse Oximetry 96 95 96 Oxygen Delivery Method Room Air Room Air Room Air 02/05/25 12:21 02/05/25 12:42 02/05/25 14:29 Temperature 98.9 F 98.9 F Pulse Rate 98 99 99 Respiratory Rate 18 18 18 Blood Pressure 118/88 125/90 H 125/90 H Pulse Oximetry 96 97 97 Oxygen Delivery Method Room Air Room Air Room Air BMI result Body Mass Index 39.7 Vital signs have been reviewed and appear to be correct. Blood pressure normal. Heart rate tachycardic. Respiratory rate normal. Temperature normal. Oxygen saturation normal. Const General: cooperative and no acute distress Nutritional Appearance: obese Orientation/consciousness: oriented to person, oriented to place, oriented to time and patient oriented x3 Limitations: no limitations HENMT Head: Yes normocephalic and Yes atraumatic Ears: external ears normal General nose exam: Normal external nose present Face and sinus: Yes face symmetric Mouth: oropharynx normal and moist mucous membranes Throat: Yes uvula midline Eyes Pupils: Equal, round and reactive pupils present Neck Neck: Yes normal visual inspection and Yes supple Resp Effort & Inspection: normal respiratory effort and able to speak in complete sentences Auscultation: clear to auscultation bilaterally Cardio Rate: regular rate Rhythm: regular rhythm Heart sounds: S1 normal heart sound present and S2 normal heart sound present GI Palpation (GI): Soft to palpation, Tenderness to palpation present (GI) in the LLQ, no guarding and No Rebound tenderness present Auscultation: normoactive bowel sounds General: Yes no CVA tenderness Back/Spine/Pelvis Back: no CVA tenderness Skin General skin exam: elasticity normal and turgor normal Neuro General: oriented to person, oriented to place, oriented to time, patient oriented x3, moves all extremities, no focal motor deficits and CN's II-XI intact bilaterally Cranial nerves: Yes Equal, round and reactive pupils present Cognition (Neuro): normal cognition Extrem General: Yes full ROM, Yes no pedal edema and Yes no calf tenderness Psych Mental Status: mental status grossly normal Affect: normal affect Thought process: Normal thought process present Medications Administered Discontinued Medications Generic Name Dose Route Start Last Admin Trade Name Freq PRN Reason Stop Dose Admin Piperacillin Sod/Tazobactam 50 mls @ 100 mls/hr 02/05/25 10:01 02/05/25 11:24 Sod 3.375 gm/ Sodium Chloride IV 02/05/25 10:30 Infused ONCE ONE Infusion Lactated Ringer's 1,000 mls @ 999 mls/hr 02/05/25 10:30 02/05/25 14:11 Lr IV 02/05/25 11:30 Infused .Q1H1M MELISSA Infusion Lactated Ringer's 1,000 mls @ 999 mls/hr 02/05/25 11:30 02/05/25 14:11 Lr IV 02/05/25 12:30 Infused .Q1H1M MELISSA Infusion Iohexol 100 ml 02/05/25 11:00 02/05/25 11:00 Iohexol 350 Mg/Ml 100 Ml Infus..Btl IV 02/05/25 11:01 85 ml ONCE ONE Administration Ondansetron HCl 4 mg 02/05/25 10:28 02/05/25 14:12 Ondansetron Hcl 4 Mg/2 Ml Vial IVPUSH 02/05/25 10:29 Not Given ONCE ONE Medical Decision Making Medical Decision Making [facility] Narrative: Patient is a 54-year-old male with history of T2 DM, HTN, HLD, factor 5 Leiden, second-degree AV block, erosive esophagitis, APOLLO, vertigo, autonomic dysfunction presenting to the emergency department with complaint of nausea, vomiting and diarrhea since Sunday night. On exam patient is awake, A+Ox3, VS WNL, afebrile, normal neurological exam without focal deficits, physical exam findings as above. Given reported symptoms and physical exam findings, initial differential includes but is not limited to sepsis, gastroenteritis, diverticulitis. Patient met sepsis criteria on arrival, blood cultures and lactic ordered as well as Zosyn. Labs notable for slight leukocytosis without left shift, elevated INR due to patient taking double dose last night, normal lactic, significant electrolyte abnormalities, normal transaminases, no evidence of MODESTA. States he accidentally took an extra tab of his coumadin last night. UA notable for trace leukocytes, does not have any urinary symptoms, unlikely UTI. Viral serology negative. CT concerning for partial/intermittent mid to distal small bowel obstruction. My interpretation is in agreement with the radiologist's interpretation. Case discussed with Dr. Moore who consulted and evaluated patient in the emergency department, does not feel he clinically appears to have a small-bowel obstruction and she is recommending treatment with empiric antibiotics if patient discharged. Blood pressure and heart rate improved with IV fluids. Do not suspect sepsis at 10:26. Through shared decision-making, patient is comfortable with discharge home and understands strict return precautions. Will discharge on Augmentin. Follow up with PCP. Patient verbalized understanding of and agreement with plan. Differential Diagnosis Differential Diagnoses: The differential diagnosis associated with the presentation includes As per [facility] Admission/Observation Consideration of admission/observation: Escalation of care including admission/observation considered Patient would have been admitted to the hospital had their work up had any findings where hospital admission was appropriate and their clinical presentation warranted hospital admission. Lab Data [facility] Lab Attestation statement: I reviewed the patient's lab results. as per [facility] 02/05/25 09:44 02/05/25 09:44 Labs: Lab Results 02/05/25 02/05/25 02/05/25 Range/Units 09:44 09:53 10:26 WBC 11.1 H (4.8-10.8) X10*3/uL RBC 5.14 (4.60-5.80) X10*6/uL Hgb 15.7 (14.0-18.0) g/dl Hct 44.3 (42.0-52.0) % MCV 86.2 (80.0-98.0) fL MCH 30.5 (27.0-33.0) pg MCHC 35.4 (31.0-36.0) g/dl RDW 13.1 (11.0-16.0) % Plt Count 239 (160-400) X10*3/uL MPV 9.6 (9.4-12.4) fL Immature Gran % (Auto) 0.4 (0.0-0.4) % Neut % (Auto) 72.5 (45-73) % Lymph % (Auto) 14.7 L (20-40) % Rout[place] % (Auto) 10.2 (2-11) % Eos % (Auto) 1.9 (0-4) % Baso % (Auto) 0.3 (0-2) % Lymph # (Auto) 1.6 (1.2-4.9) X10*3/uL [place] # (Auto) 1.1 (0.1-1.2) X10*3/uL Eos # (Auto) 0.2 (0.0-0.4) X10*3/uL Baso # (Auto) 0.0 (0.0-0.2) X10*3/uL Abs Immat Gran (auto) 0.04 H (0.00-0.03) X10*3/uL Absolute Neuts (auto) 8.1 (2.0-8.3) x10*3/uL Absolute Nucleated RBC 0.000 (0.0-0.012) X10*3/uL Nucleated RBC % (auto) 0.0 (0.0-0.2) /100WBC PT 52.9 H D (10.9-12.4) SEC INR 4.6 H D (0.9-1.1) Sodium 136 (135-145) mmol/L Potassium 3.7 (3.3-5.1) mmol/L Chloride 103 (96-108) mmol/L Carbon Dioxide 22 (22-29) mmol/L Anion Gap 15 (12-20) BUN 10 (9-16) mg/dL Creatinine 0.88 (0.5-1.4) mg/dL Estim Creat Clear Calc 125.3 Estimated GFR > 60 Random Glucose 157 H (60-115) mg/dL Lactic Acid 1.8 (0.5-2.0) mmol/L Calcium 9.0 (8.4-10.2) mg/dL Magnesium 1.6 (1.6-2.6) mg/dL Total Bilirubin 0.9 (0.0-1.0) mg/dL AST 17 (5-37) U/L ALT 15 (0-40) U/L Alkaline Phosphatase 52 (39-117) U/L Total Protein 7.6 (6.5-8.0) g/dL Albumin 4.3 (3.5-5.0) g/dL Lipase 24 (8-78) U/L Urine Color Urine Appearance Urine pH (5.0-9.0) Ur Specific [place] (1.005-1.025) Urine Protein (Neg-Trace) mg/dL Urine Glucose (UA) (Negative) mg/dL Urine Ketones (Negative) mg/dL Urine Blood (Negative) Urine Nitrite (Negative) Ur Leukocyte Esterase (Negative) Urine RBC (0-2) /HPF Urine WBC (0-5) /HPF Ur Squamous Epith Cells (0-2) /HPF Urine Bacteria (None Seen) Hyaline Casts (0-2) /LPF Influenza Type A (PCR) NEGATIVE (Negative) Influenza Type B (PCR) NEGATIVE (Negative) RSV RNA Qual (PCR) NEGATIVE (Negative) SARS-CoV-2 RNA (RT-PCR) NEGATIVE (Negative) 02/05/25 Range/Units 10:33 WBC (4.8-10.8) X10*3/uL RBC (4.60-5.80) X10*6/uL Hgb (14.0-18.0) g/dl Hct (42.0-52.0) % MCV (80.0-98.0) fL MCH (27.0-33.0) pg MCHC (31.0-36.0) g/dl RDW (11.0-16.0) % Plt Count (160-400) X10*3/uL MPV (9.4-12.4) fL Immature Gran % (Auto) (0.0-0.4) % Neut % (Auto) (45-73) % Lymph % (Auto) (20-40) % Routt % (Auto) (2-11) % Eos % (Auto) (0-4) % Baso % (Auto) (0-2) % Lymph # (Auto) (1.2-4.9) X10*3/uL [place] # (Auto) (0.1-1.2) X10*3/uL Eos # (Auto) (0.0-0.4) X10*3/uL Baso # (Auto) (0.0-0.2) X10*3/uL Abs Immat Gran (auto) (0.00-0.03) X10*3/uL Absolute Neuts (auto) (2.0-8.3) x10*3/uL Absolute Nucleated RBC (0.0-0.012) X10*3/uL Nucleated RBC % (auto) (0.0-0.2) /100WBC PT (10.9-12.4) SEC INR (0.9-1.1) Sodium (135-145) mmol/L Potassium (3.3-5.1) mmol/L Chloride (96-108) mmol/L Carbon Dioxide (22-29) mmol/L Anion Gap (12-20) BUN (9-16) mg/dL Creatinine (0.5-1.4) mg/dL Estim Creat Clear Calc Estimated GFR Random Glucose (60-115) mg/dL Lactic Acid (0.5-2.0) mmol/L Calcium (8.4-10.2) mg/dL Magnesium (1.6-2.6) mg/dL Total Bilirubin (0.0-1.0) mg/dL AST (5-37) U/L ALT (0-40) U/L Alkaline Phosphatase (39-117) U/L Total Protein (6.5-8.0) g/dL Albumin (3.5-5.0) g/dL Lipase (8-78) U/L Urine Color Dark Yellow Urine Appearance Clear Urine pH 6.0 (5.0-9.0) Ur Specific [place] 1.025 (1.005-1.025) Urine Protein 30 (1+) H (Neg-Trace) mg/dL Urine Glucose (UA) Negative (Negative) mg/dL Urine Ketones 15 (Negative) mg/dL Urine Blood Trace H (Negative) Urine Nitrite Negative (Negative) Ur Leukocyte Esterase Trace H (Negative) Urine RBC 3-5 H (0-2) /HPF Urine WBC 0-5 (0-5) /HPF Ur Squamous Epith Cells 0-2 (0-2) /HPF Urine Bacteria None Seen (None Seen) Hyaline Casts 0-2 (0-2) /LPF Influenza Type A (PCR) (Negative) Influenza Type B (PCR) (Negative) RSV RNA Qual (PCR) (Negative) SARS-CoV-2 RNA (RT-PCR) (Negative) Independent Interpretation I performed an independent interpretation of an: CT Scan Interpretation: CT abdomen pelvis concerning for partial/intermittent small-bowel obstruction. Radiology Impression Discussion of test interpretation with radiology: I have reviewed the radiologist's reading. Radiologist Impression: CT/CT abdomen pelvis w IV con IMPRESSION: Partial/intermittent mid to distal small bowel obstruction. Probable old/chronic venous thrombosis and collateral flow, inferior vena cava and common femoral veins. Fat-containing umbilical and inguinal hernias. Coronary artery disease and atherosclerosis disease. Calcified mitral valve. Hepatic steatosis. External Record Review External record reviewed: Inpatient record, Office record and Outpatient record Prescription Management I considered prescription management with: Antibiotic and Other Critical Care Time Critical Care Time Critical Care Time: Yes Total Critical Care Time: 39 Attestation: I have personally provided critical care time exclusive of time spent on separately billable procedures. Time includes review of lab data, radiology results, discussion with consultants, and monitoring for potential decompensation. Intervention performed as documented. Discharge Plan Discharge Clinical Impression: Gastroenteritis Patient Disposition: Home, Self-Care Instructions: Gastroenteritis (DC), Acute Nausea and Vomiting (DC), Acute Diarrhea (ED) Additional Instructions: You were evaluated in the emergency department today for abdominal pain, nausea, vomiting and diarrhea. You were treated with IV fluids and nausea medication with improvement. You were also evaluated by general surgery who do not feel your physical exam is consistent with a bowel obstruction and your symptoms are likely due to an infectious cause. You are being treated with a course of antibiotics, complete the full course as prescribed even if your symptoms improve. Your INR was elevated today, you should hold your dose tonight. Follow up with your primary care provider as needed. Return to the emergency department if you develop persistent vomiting and are unable to tolerate fluids, fever, worsening pain, blood in your vomit or stool or any other new or concerning symptoms. Prescriptions: New amoxicillin-pot clavulanate 875-125 mg tablet 1 tab PO BID Qty: 10 0RF ondansetron 4 mg tablet,disintegrating 4 mg PO Q8H PRN (Reason: nausea and vomiting) Qty: 10 0RF No Action (DME) blood-glucose meter [OneTouch Ultra2 Meter] Kit See Rx Instructions .Route Qty: 1 0RF Rx Instructions: As directed (DME) lancing device with lancets [OneTouch Delica Lanc Device] Kit See Rx Instructions .Route Qty: 1 0RF Rx Instructions: testing blood sugar once daily (DME) lancets [OneTouch Delica Lancets] 33 gauge misc See Rx Instructions .Route Qty: 100 3RF Rx Instructions: test blood sugar daily (DME) CPAP Machine/Device Device See Rx Instructions .Route Qty: 1 0RF Rx Instructions: auto PAP 6-20 cm with heated humidification with needed supplies (DME) OneTouch Ultra Test Strip See Rx Instructions .Route Qty: 100 3RF Rx Instructions: test blood sugar once a day simvastatin 40 mg tablet 40 mg PO DAILY Qty: 90 2RF metformin 750 mg tablet extended release 24 hr 1,500 mg PO DAILY Qty: 90 3RF Ozempic 0.25 mg or 0.5 mg (2 mg/3 mL) pen injector 0.5 mg subcut QWEEK Qty: 3 2RF amlodipine 2.5 mg tablet 2.5 mg PO DAILY Qty: 90 5RF warfarin 7.5 mg tablet 7.5 mg PO DAILY Qty: 100 1RF Rx Instructions: Adjust according to INR results Ozempic 1 mg/dose (4 mg/3 mL) pen injector 1 mg subcut QWEEK Qty: 3 1RF diphenhydramine HCl [Benadryl] 25 mg capsule 50 mg PO Q6H PRN (Reason: allergic reaction) Qty: 20 0RF (DME) lancets [OneTouch UltraSoft Lancets] Misc See Rx Instructions .ROUTE .MEDSUPPLY Qty: 100 6RF Rx Instructions: TID (DME) Dexcom G7 Sensor Device See Rx Instructions .Route Qty: 2 2RF Rx Instructions: As directed hydralazine 10 mg tablet 20 mg PO DAILY Qty: 180 1RF meclizine 12.5 mg tablet 12.5 mg PO ONCE PRN (Reason: dizziness) Interventions: ED Discharge Assessment Last Done: 02/05/25 14:29 Print Language: Kazakh
[2025-02-05 10:03] LABS: INTERNATIONAL NORM RATIO 4.6 (0.9-1.1); Prothrombin Time 52.9 SEC (10.9-12.4)
[2025-02-05 10:06] LABS: Alanine Aminotransferase 15 U/L (0-40); Albumin Level 4.3 g/dL (3.5-5.0); Alkaline Phosphatase 52 U/L (39-117); Anion Gap 15 (12-20); Aspartate Amino Transferase 17 U/L (5-37); Blood Urea Nitrogen 10 mg/dL (9-16); Calcium 9.0 mg/dL (8.4-10.2); Carbon Dioxide 22 mmol/L (22-29); Chloride 103 mmol/L (96-108); Creatinine Clr Calc Pharmacy 125.3; Estimated Glomerular Filt Rate > 60; Potassium 3.7 mmol/L (3.3-5.1); Sodium 136 mmol/L (135-145); Total Protein 7.6 g/dL (6.5-8.0)
[2025-02-05 10:40] LABS: Resp Syncy Virus RNA Qual PCR NEGATIVE (Negative); SARS COV2 PCR INHOUSE NEGATIVE (Negative)
[2025-02-05 10:42] LABS: Appearance Urine Clear; Glucose Urine UA Negative (Negative); PH 6.0 (5.0-9.0); Specific Gravity - Urine 1.025 (1.005-1.025); UMIC TRIGGER UACC YES
[2025-02-05 10:48] LABS: Lipase 24 U/L (8-78); Magnesium 1.6 mg/dL (1.6-2.6)
[2025-02-05] MEDS: iohexoL 350 MG/ML 100 ML INFUS..BTL IV (11:00)
[2025-02-05] MEDS: Lactated Ringers 1,000 ML 999 ML IV ×2 (11:14→11:24)
[2025-02-05 11:19] VITALS: BP 95/69; PULSE 100; RESP 16; TEMP 36.8; O2SAT 95
[2025-02-05 11:22] VITALS: BP 109/77; PULSE 104; RESP 18; O2SAT 96
--- OUTSIDE RECORDS SUMMARY | 2025-02-05 11:26 | XMS_ITS | Clinical Summary ---
Author Organization [facility] Address [address] [place] [address] Care Team Providers Care Offender Job Retention Specialist Name Role Phone Esha Corbin MD Primary Care Provider [phone] Allergies Active Allergy Reactions Criticality Noted Date [...] CMIA Nonreactive Nonreactive 08/04/2024 11:01 AM EST [facility] Comment: Results show no evidence [...] DO LAB BLOOD ORDERABLES Final R esult [facility] [address] [place] [address], from Last 3 Months or Most Recently Relevant to Health Maintenance Insurance MEDICARE PART A & B [facility] Care Teams Offender Job Retention Specialist Relationship Specialty Start Date End Date Esha Corbin MD [address] [place] [address] PCP - General 08/01/24
--- OUTSIDE RECORDS SUMMARY | 2025-02-05 11:26 | XMS_ITS | Clinical Summary ---
Author Organization [employer] Address [address] [facility] [address] [place] [address] Care Team Providers Care School Traffic Guard Name Role Phone Unavailable Primary Care Provider [...] Panel 1971 SDOH Screening 1971 Sigmoidoscopy 1971 Disability Screening 1971 Alcohol/Substance Use Screening 1983 Hepatitis C [...] 2024 05/20/2023, 07/09/2022, 04/25/2022, Additional history exists Tobacco Screening 02/21/2025 02/22/2024 Influenza Vaccine (Season Ended) 2025 05/20/2023, 04/25/2022, 06/28/2021, Additional history exists RSV Patients and Patients Aged 60 years or older (1 - 1-dose 75+ series) 2046 HIB Vaccines Aged Out No longer eligi [...] patient's age to complete this topic Meningococcal B Vaccine Aged Out No l onger eligible based on patient's age to complete [...] to Health Maintenance Insurance [id number] [place] [id number] [facility] STAND[facility] [address] [place] [id number] [facility] STAND ADULT [address] [place] [address] [place] [address] [facility] [place] [id number]
--- OUTSIDE RECORDS SUMMARY | 2025-02-05 11:27 | XMS_ITS | Data Portability ---
Author Organization [facility], [facility] Address [address] [place] [address] Assessment No assessment recorded. Plan of Treatment Reminders Order Date Submit Date Provider Last Modified By Organization Details Last Modified Time Details Appointments None recorde d. Lab glucose , fingers tick, blood 023 09/01/19 [email or web address] [facility] [address], [address] [place], [address], 13:59:19 Referral None recorde d. Procedures None recorde d. Surgeries None recorde d. Imaging None recorde d. Medication Orders None recorde d. Patient TargetsNo targets recorded. Patient Instructions Encounter Date Encounter Id Patient Instructions Last Modified By Organization Details Last Modified Time 09/01/2022 [id number] Health Education and Guidance [email or web address] Not available [...] 127 mg/dL 80-140 = normal Not Available [facility] [address] [place], [address], 09/01/2022 13:24:27 09/01/19 23 09/01/2022 gluco sejune rsrosemarie k, blood blood sugar - fasting mg/dL 80-125 = normal Not Available [facility] [address] [address] [place], [address], 09/01/2022 13:24:27 Result Notes None recorded. Problems [...] SNOMED-CT Code Diagnosis ICD10 Code Diagnosis Note [id number] [address] [address] [address] [place] [address] 12/29/2021 16:21:44 12/29/2021 16:55:03 [id number] [place] [id number] [place] [address] 09/01/2022 11:38:27 09/01/2022 14:06:01 History and physical examination, pre-employment [id number] Z02.1 Diabetes m ellitus screening [id number] Z13.1 Health Concerns Section Related Observation LastModified [...] Jameel Gallardo 01/01/2023 [facility] Jameel Gallardo [phone] Jameel Gallardo
[2025-02-05 12:21] VITALS: BP 118/88; PULSE 98; RESP 18; O2SAT 96
[2025-02-05 12:42] VITALS: BP 125/90; PULSE 99; RESP 18; TEMP 37.2; O2SAT 97
--- NOTE | 2025-02-05 13:07 | P.CONGS_ITS ---
History of Present Illness Consult details Consult date: 02/05/25 Narrative: Patient is a 54-year-old male with history of T2 DM, HTN, HLD, factor 5 Leiden, second-degree AV block, erosive esophagitis, APOLLO, vertigo, autonomic dysfunction presenting to the emergency department with complaint of nausea, vomiting and diarrhea since Sunday night. States his symptoms began with 'pea soup diarrhea. Associated fever, lightheadedness. States symptoms began after eating a piece of fish that he cooked himself. Significant other ate a different piece of the same fish and did not have symptoms. Emesis has been nonbloody, nonbilious, no hematochezia or melena. Complaining of left lower quadrant abdominal pain and increased belching. Denies chest pain, palpitations, dyspnea. Last took Tylenol at 8:30 this morning. States he is on Ozempic and increased his dose around 2 weeks ago but feel symptoms are unrelated. His last bowel movement was yesterday, states it was more formed than previously. he currently denies nausea or vomiting. States he woke up this morning with a mild fever 100.9.he has been tolerating a bland diet since last night. he denies history of abdominal surgery he was found to have flattened distal small bowel loops and thickeing of the bowels, with concern for SBO, thus the consultation Review of Systems 2 Review of Systems: Yes all other systems are reviewed and are negative [facility] Past Medical History Medical History Heart block AV second degree Hypertension DM type 2 (diabetes mellitus, type 2) Factor 5 Leiden mutation, heterozygous Vitamin B 12 deficiency Dizziness Annual physical exam Skin abnormalities STD (male) Venous (peripheral) insufficiency Obesity Hyperlipidemia PVD (peripheral vascular disease) DVT (deep venous thrombosis) SOB (shortness of breath) Family History Family History Father CVD (cardiovascular disease) Mother CVD (cardiovascular disease) Daughter No problems noted. Son No problems noted. Surgical History Surgical History Hx of esophagogastroduodenoscopy Hx of colonoscopy H/O vascular surgery Social History Social History (Reviewed 01/09/25 @ 10:14 by ALON Narayanan Household Members: Spouse and Significant Other Housing: House Are you a primary health care specialist to a significant other at home: No Do you presently have visiting nurse or other home services: No Alcohol intake: former Patient Tobacco Use Status: Former Tobacco user Tobacco use type: Cigarette e-Cigarette/Vaping Use: Never Used Second Hand Smoke Exposure: No (none) Advance Directives: No Advance Directives Information Provided: Yes service: No Current occupational status: employed Cognitive needs: No Hearing needs: No Vision needs: No Meds Allergies Allergy/AdvReac Type Severity Reaction Status Date / Time A & D Allergy Severe anaphylaxis Verified 02/05/25 09:29 bacitracin (BACITRACIN) Allergy Severe Verified 02/05/25 09:29 SEIZURE , anaphylaxis losartan Allergy Intermediate Angioedema Verified 02/05/25 09:29 Sulfa (Sulfonamide Allergy Mild SWELLING Verified 02/05/25 09:29 Antibiotics) adhesive tape Allergy Rash Verified 02/05/25 09:29 atenolol Allergy Heart Verified 02/05/25 09:29 block AV second degree gabapentin Allergy Hives, Verified 02/05/25 09:29 elevated BP, leg twitching dapagliflozin (From Farxiga) AdvReac Intermediate Abdominal Verified 02/05/25 09:29 Pain dulaglutide (From Trulicity) AdvReac Intermediate Diarrhea, Verified 02/05/25 09:29 vomiting lisinopril AdvReac Intermediate Dizziness Verified 02/05/25 09:29 lamotrigine AdvReac elevated Verified 02/05/25 09:29 BP, dizziness sweating tirzepatide (From Mounjaro) AdvReac Constipatio Verified 02/05/25 09:29 n losartan Allergy feeling Uncoded 02/05/25 09:29 like he will pass out SSRI AdvReac Intermediate DECREASE Uncoded 02/05/25 09:29 LIBIDO Home Medications ?Medication ?Instructions ?Recorded ?Confirmed ?Last Taken ?Type meclizine 12.5 mg tablet 12.5 mg PO ONCE PRN dizzines s 09/29/24 01/09/25 Unknown History Physical Exam 2 Vital Signs: Vital Signs: Last Vital Signs Temp 98.9 F 02/05/25 12:42 Pulse 99 02/05/25 12:42 Resp 18 02/05/25 12:42 BP 125/90 H 07/03/25 12:42 Pulse Ox 97 02/05/25 12:42 O2 Del Method Room Air 02/05/25 12:42 BMI result Body Mass Index 39.7 Const: General: comfortable and no acute distress O rientation/consciousness: patient oriented x3 Resp: Effort & Inspection: normal respiratory effort and able to speak in complete sentences GI: Inspection: No distended Palpation (GI): Soft to palpation, not firm, Tenderness to palpation present (GI) (mild tenderness epigastric), no guarding and not rigid Percussion: Yes normal to percussion Auscultation: normal bowel sounds Neuro: General: patient oriented x3 Results Labs 02/05/25 09:44 02/05/25 09:44 Labs: Abnormal lab results 02/05/25 02/05/25 Range/Units 09:44 10:33 WBC 11.1 H (4.8-10.8) X10*3/uL Lymph % (Auto) 14.7 L (20-40) % Abs Immat Gran (auto) 0.04 H (0.00-0.03) X10*3/uL PT 52.9 H D (10.9-12.4) SEC INR 4.6 H D (0.9-1.1) Random Glucose 157 H (60-115) mg/dL Urine Protein 30 (1+) H (Neg-Trace) mg/dL Urine Blood Trace H (Negative) Ur Leukocyte Esterase Trace H (Negative) Urine RBC 3-5 H (0-2) /HPF Short CBC 02/05/25 Range/Units 09:44 WBC 11.1 H (4.8-10.8) X10*3/uL Hgb 15.7 (14.0-18.0) g/dl Hct 44.3 (42.0-52.0) % Plt Count 239 (160-400) X10*3/uL BMP 02/05/25 09:44 Sodium 136 Potassium 3.7 Chloride 103 Carbon Dioxide 22 BUN 10 Creatinine 0.88 Calcium 9.0 Liver Function 02/05/25 Range/Units 09:44 Total Bilirubin 0.9 (0.0-1.0) mg/dL AST 17 (5-37) U/L ALT 15 (0-40) U/L Alkaline Phosphatase 52 (39-117) U/L Albumin 4.3 (3.5-5.0) g/dL Urine 02/05/25 Range/Units 10:33 Urine Color Dark Yellow Urine Appearance Clear Urine pH 6.0 (5.0-9.0) Ur Specific [place] 1.025 (1.005-1.025) Urine Protein 30 (1+) H (Neg-Trace) mg/dL Urine Glucose (UA) Negative (Negative) mg/dL All other labs normal. Assessment and Plan (1) Abdominal pain: Qualifiers: Abdominal location: generalized Qualified Code(s): R10.84 - Generalized abdominal pain Status: Acute Plan 54-year-old male with history of T2 DM, HTN, HLD, factor 5 Leiden, second-degree AV block, erosive esophagitis, APOLLO, vertigo, autonomic dysfunction presenting to the emergency department seen in consult for possible SBO found on imaging. Patient is complaining of nausea, vomiting and diarrhea since Sunday night. Associated fever, lightheadedness. States symptoms began after eating a piece of fish that he cooked himself. Significant other ate a different piece of the same fish and did not have symptoms. Emesis has been nonbloody, nonbilious, no hematochezia or melena. Complaining of left lower quadrant abdominal pain and increased belching. Patient was found to have a possible SBO on CT scan showing collapsed distal small bowel, and wall thickening. Clinically, the patient is non obstructed. His abdomen is soft and largely benign, aside from some mild tenderness throughout. He has active bowel sounds and is nonsitended. He has produced stool, last BM yesterday. His nausea and vomiting has improved. He has been tolerating diet since last night. It seems more likely that the etiology is an infectious gastroenteritis rather than a small bowel obstruction. Would recommend slowly advancing diet and replenishing fluids and lytes orally. Procedures Date of Service Date of Service: 02/05/25
[2025-02-05 14:29] VITALS: BP 125/90; PULSE 99; RESP 18; TEMP 37.2; O2SAT 97
== END 2025-02-05 14:43 | disposition home or self-care (01) ==
PROVIDERS: Registered Nurse Emergency; Emergency Provider Emergency Medicine Emergency Medical Services; PCP Internal Medicine
DX: K52.9 Noninfective gastroenteritis and colitis, unspecified (principal); R11.2 Nausea with vomiting, unspecified; K56.600 Partial intestinal obstruction, unspecified as to cause; K40.90 Unilateral inguinal hernia, without obstruction or gangrene, not specified as recurrent; K42.9 Umbilical hernia without obstruction or gangrene; E11.9 Type 2 diabetes mellitus without complications; I10 Essential (primary) hypertension; E78.5 Hyperlipidemia, unspecified; I44.1 Atrioventricular block, second degree; Z03.818 Encounter for observation for suspected exposure to other biological agents ruled out; Z86.718 Personal history of other venous thrombosis and embolism; Z87.891 Personal history of nicotine dependence; Z79.01 Long term (current) use of anticoagulants; Z79.899 Other long term (current) drug therapy; Z79.02 Long term (current) use of antithrombotics/antiplatelets; Z79.84 Long term (current) use of oral hypoglycemic drugs
CPT/HCPCS: 36415; 71046; 74177; 80053; 81001; 83605; 83690; 83735; 85025; 85610; 87040; 87637; 93005; 96361; 96365; 99285; 99291; J2543; J7120; Q9967

== ENCOUNTER → 2025-02-05 09:33 | Outpatient (BNV) | payer MEDICARE, MEDICAID, SELFPAY | PROVIDERS: Emergency Provider Emergency Medicine Emergency Medical Services; PCP Internal Medicine; Visit Provider Internal Medicine Cardiovascular Disease | DX: I44.0 Atrioventricular block, first degree (principal); R00.0 Tachycardia, unspecified | CPT/HCPCS: 93010 ==

== ENCOUNTER → 2025-02-05 09:40 | Outpatient (BNV) | payer MEDICARE, MEDICAID, SELFPAY | PROVIDERS: Emergency Provider Emergency Medicine Emergency Medical Services; PCP Internal Medicine; Visit Provider Radiology Diagnostic Radiology | DX: K56.600 Partial intestinal obstruction, unspecified as to cause (principal); K42.9 Umbilical hernia without obstruction or gangrene; K40.90 Unilateral inguinal hernia, without obstruction or gangrene, not specified as recurrent; I25.10 Atherosclerotic heart disease of native coronary artery without angina pectoris; I34.81 Nonrheumatic mitral (valve) annulus calcification; K76.0 Fatty (change of) liver, not elsewhere classified; R50.9 Fever, unspecified; M47.9 Spondylosis, unspecified; M19.019 Primary osteoarthritis, unspecified shoulder | CPT/HCPCS: 71046; 74177 ==

== ENCOUNTER → 2025-02-05 10:34 | Outpatient (BNV) | payer MEDICARE, MEDICAID, SELFPAY | PROVIDERS: Emergency Provider Emergency Medicine Emergency Medical Services; PCP Internal Medicine | DX: R10.84 Generalized abdominal pain (principal) | CPT/HCPCS: 99283 ==

== ENCOUNTER 2025-02-16 10:39 | Outpatient (AMB) | payer MEDICARE, MEDICAID, SELFPAY ==
--- OUTSIDE RECORDS SUMMARY | 2013-04-11 05:48 | XMS_ITS | Continuity of Care Document ---
Author Organization [facility] Address [address] [place] [phone] Phone Care Team Providers Care Behavioral Consultant Name Role Phone David Haddad MD, FACS Unavailable Unava ilable Allergies, Adverse Reactions, Alerts Substance Reaction Status Criticality trimethoprim Active No Information sulfamethoxazole Active No Informat ion Sulfa (Sulfonamide Antibiotics) Active No Information Medications Medication Instructions Dosage Effective Dates (start - stop) Status Comments simvastatin 20 mg tablet take 1 tablet (20MG) by oral route every day in the evening 20 MG - Active metformin 500 mg tablet take 1 tablet (500MG) by oral route every day 500 MG - Active warfarin 7.5 mg tablet take 1 tablet (7.5MG) by oral route every day 7.5 MG - Active Fish Oil 1,000 mg capsule take 1 by Oral route every - Active warfarin 7.5 mg tablet take 1 1/2 tablet (7.5MG) by oral route on Mon & Fri - Active Procedures Procedure Date OFFICE/OUTPATIENT VISIT, EST OFFICE/OUTPATIENT VISIT, EST ENDOVENOUS LASER, 1ST VEIN OFFICE/OUTPATIENT VISIT, EST APPLICATION OF PASTE BOOT EXTREMITY STUDY OFFICE/OUTPATIENT VISIT, NEW APPLICATION OF PASTE BOOT Advance Directives Directive Yes / No Effective Date File Name Resuscitation Not Answered N/A N/A Life Support Not Answered N/A N/A Intubation Not Answered N/A N/A Antibiotics Not Answered N/A N/A IV Fluid Support Not Answered N/A N/A Tube Feed Not Answered N/A N/A Other Directive N/A N/A WARNING:The information contained in this section is historical and is provided for information only and does not constitute a legal document or any assurance that the information is still accurate. Please verify the information with the craft of the legal document before using it for clinical purposes. Encounters Encounter Description Practice Location Reason(s) For Visit Diagnoses Date Provider Providers Copied on Encounter OFFICE/OUTPA TIENT VISIT, [facility], [facility] [facility] [address], [place], [id number], [place] tel: [phone] [place] 3 Varicose Veins With Inflammation Sep-0 6 3 Wixon Dann er. 4750 [facility], [address], [id number] , [place]. tel: [phone] Referring Provider: David Covarrubias, [facility] [address], [place], [address]. tel:[phone] [facility], [address] [place] [address] [address], [place], [id number], [place] tel: [phone] [facility] Varicose Veins With InflammationVen ous insufficiency, ChronicSwelling of limbPostphlebet ic syndrome with inflammation Sep-0 4 3 Viviane Rodriguez. 4750 [facility], Ivan [address] [place] [address], [id number] . tel: [phone] OFFICE/OUTPA TIENT VISIT, [facility], [facility] [address], [place], [id number], [place] tel: [phone] [place] 3 Varicose Veins With Inflammation Jan- 3 Geexon Dann er. 4750 [facility], [facility] [address], [place], [id number] , [place]. tel: [phone] Referring Provider: David Covarrubias, [facility] [address], [address]. tel:[phone] [facility], [address] [place], [place] [address] [address], [id number], [place] tel:[phone] Procedure No Information 3 Catie Quigley er. [address], [id number] , . tel: [phone] Referring Provider: David Covarrubias, [address] [place] [address], [address]. tel:[phone] OFFICE/OUTPA TIENT VISIT, [facility], [address] [place] [address], [id number], tel: [phone] Hall[place] 3 Varicose Veins With Inflammation Nov- 2- 3 Wixtatum Quigley er. [address] [place] [address], [id number] , [place]. tel: [phone] Referring Provider: David Covarrubias, [address] [place] [address], [id number]. tel:[phone] OFFICE/OUTPA TIENT VISIT, [facility], [address] [place] [address], [id number], tel: [phone] [place] 3 Postphlebetic syndrome with inflammation Nov-0 3 Catie Quigley er. [address] [place] [address], [id number] , [place]. tel: [phone] Referring Provider: Hemal Miranda, [facility]6 [facility] [address] [place] [address], [address]. tel:[phone] [facility], [address] [place] [address], [id number], tel: [phone] [facility] No Information 0 3 Catie Quigley er. [address] [place] [address], [id number] , [place]. tel: [phone] Family History Family Member Type Diagnosis Age At Onset Family Hx of Problem (finding) Obesity Family Hx of Problem (finding) Varicose Veins Family Hx of Problem (finding) DVT Family Hx of Problem (finding) Diabetes mellitus Family Hx of Problem (finding) hypertension Payers Payer name Insurance type Covered libertarian ID Authorlamonta donnieon(s) [employer] Choice PPO Medicare Plan CI [id number] Social History Type Description Quantity Date Captured Comments Alcohol Use Details Unknown Caffeine Use Details Unknown Tobacco Use Status No Information Smoking Status Never smoker Non-Smoking Tobacco Use Details : No Details Available : No Details Available Sex Male Vital Signs Date / Time: Height Weight BMI Pulse Rate Blood Pressure Temperature Respiratory Rate Body Surface Area Head Circumference Head Circ. Percentile Wt./Gray. Percentile BMI percentile Pulse Ox Inhaled Ox 10:40 AM 69.00 in 138.180 kg (304.00 lbs) 45.0 0 kg/m eter (2) 64 /min 128/85 mm[Hg] Chief Complaint And Reason For Visit No Information Reason For Referral Reason For Referral No Information History Of Present Illness Encounter Date Complaint History Of Prese nt Illness No Information Functional Status Date Functional Assessmen t No Information Instructions Date Instruction Additional Infor mation No Information Assessments Type Assessment Date No Information Patient Care Teams Name Effective Dates (start - stop) Status Members No Information
--- NOTE | 2025-02-16 10:44 | A.OFFPC_ITS ---
Vital Signs 02/16/25 10:45 Height 5 ft 9 in Weight 274 lb BMI 40.5 BP 118/74 Blood Pressure Location Lt brachial Position Sitting Respiration 18 Pulse 80 Pulse Source Pulse Oximeter Temp 98.8 F Temp Source Oral Pulse Oximetry (%) 98 Oxygen Delivery Method Room Air Intake Visit Reasons: ER followup, gastroenteritis Intake Note: Pt is here today for ER follow up visit. Allergies A & D Allergy (Severe, Verified 02/16/25 10:51) anaphylaxis bacitracin (BACITRACIN) Allergy (Severe, Verified 02/16/25 10:51) SEIZURE , anaphylaxis losartan Allergy (Intermediate, Verified 02/16/25 10:51) Angioedema Sulfa (Sulfonamide Antibiotics) Allergy (Mild, Verified 02/16/25 10:51) SWELLING adhesive tape Allergy (Verified 02/16/25 10:51) Rash atenolol Allergy (Verified 02/16/25 10:51) Heart block AV second degree gabapentin Allergy (Verified 02/16/25 10:51) Hives, elevated BP, leg twitching dapagliflozin (From Farxiga) Adverse Reaction (Intermediate, Verified 02/16/25 10:51) Abdominal Pain dulaglutide (From Trulicity) Adverse Reaction (Intermediate, Verified 02/16/25 10:51) Diarrhea, vomiting lisinopril Adverse Reaction (Intermediate, Verified 02/16/25 10:51) Dizziness lamotrigine Adverse Reaction (Verified 02/16/25 10:51) elevated BP, dizziness sweating semaglutide (From Ozempic) Adverse Reaction (Verified 02/16/25 11:30) Diarrhea tirzepatide (From Mounjaro) Adverse Reaction (Verified 02/16/25 10:51) Constipation losartan Allergy (Uncoded 02/16/25 10:51) feeling like he will pass out SSRI Adverse Reaction (Intermediate, Uncoded 02/16/25 10:51) DECREASE LIBIDO Medication List - Last Reconciled 02/16/25 by Esha Corbin MD amlodipine 2.5 mg PO DAILY blood sugar diagnostic (iSTAR MedicalTouch Ultra Test strips) test blood sugar once a day blood-glucose meter (Sanguineuch Ultra2 Meter kit) As directed blood-glucose sensor ([employer] a division [employer] G7 Sensor device) As directed CPAP (CPAP Machine/Device) auto PAP 6-20 cm with heated humidification with needed supplies diphenhydramine HCl (Benadryl) 50 mg (2 x 25 mg) PO Q6H PRN hydralazine 10 mg PO BID lancets (iSTAR MedicalTouch UltraSoft Lancets) TID lancets (Sanguineuch Delica Lancets) test blood sugar daily lancing device with lancets ([employer] Delica Lancing Device kit) testing blood sugar once daily meclizine 12.5 mg PO ONCE PRN metformin ER 1,500 mg (2 x 750 mg) PO DAILY ondansetron 4 mg PO Q8H PRN simvastatin 40 mg PO DAILY warfarin 7.5 mg PO DAILY Tobacco use date assessed: 02/16/25 Dental Screening Dental Screen Date: 09/18/24 HPI ER followup, gastroenteritis HPI Details Patient presents for the follow-up of ER visit for acute diarrhea gastroenteritis. Patient felt his symptoms were related to Ozempic and stopped taking it. He reports fasting blood glucose between 110-130. He has been following ADA diet and trying to exercise regularly. Hypertension has been controlled on current medications and patient is established with outpatient case manager [facility] Medical History Heart block AV second degree Vitamin B 12 deficiency Dizziness STD (male) DM type 2 (diabetes mellitus, type 2) Venous (peripheral) insufficiency Obesity Hyperlipidemia PVD (peripheral vascular disease) Hypertension DVT (deep venous thrombosis) Factor 5 Leiden mutation, heterozygous SOB (shortness of breath) Surgical History Hx of esophagogastroduodenoscopy Hx of colonoscopy H/O vascular surgery Family History Father CVD (cardiovascular disease) Mother CVD (cardiovascular disease) Daughter No problems noted. Son No problems noted. Social History Household Members: Spouse and Significant Other Housing: House Are you a primary campground caretaker to a significant other at home: No Do you presently have visiting nurse or other home services: No Alcohol intake: former Patient Tobacco Use Status: Former Tobacco user Tobacco use type: Cigarette e-Cigarette/Vaping Use: Never Used Second Hand Smoke Exposure: No (none) service: No Current occupational status: employed Cognitive needs: No Hearing needs: No Vision needs: No Questionnaire Thrive Questionnaire Date Thrive assessed: 08/22/24 I am a: Patient What is your living situation today?: I have a steady place to live Within the past 12 months, did the food you bought not last and you didn't have the money to get more?: I choose not to answer this question Within the past 12 months, did you worry whether your food would run out before you got money to buy more?: I choose not to answer this question Do you have trouble paying for medicines?: I choose not to answer this question Do you have trouble getting transportation to medical appointments?: I choose not to answer this question Do you have trouble paying your heating and electricity bill?: I choose not to answer this question Do you have trouble taking care of your child, family member or friend?: I choose not to answer this question Do you have trouble with day-to-day activities such as bathing, preparing meals, shopping, managing finances, etc.?: I choose not to answer this question Are you currently unemployed and looking for a job?: I choose not to answer this question Are you interested in more education?: I choose not to answer this question Please select the resources that you would like help with: None Currently or been in a relationship where the following occur: I choose not to answer THRIVE Score: 0 AUDIT C Alcohol Use Questionnaire (AUDIT-C) 1. How often do you have a drink containing alcohol?: Monthly or less 2. How many drinks containing alcohol do you have on a typical day when you are drinking?: 1 or 2 3. How often do you have six or more drinks on one occasion?: Never Total Score: 1 ANISA-7 AMB Questionnaire ANISA-7 Date ANISA - 7 assessed: 12/01/24 Source: Developed by Drs. Marco Antonio Zhu, Ginger Freed, Se Bahena and colleagues, with an educational teresita from [employer]. Review of Systems Const All systems reviewed & are unremarkable except as noted in HPI and below Eyes Reports no additional complaints ENT Reports no additional complaints Card Reports no additional complaints Resp Reports no additional complaints GI Reports no additional complaints Reports no additional complaints Physical exam (Primary Care) Vital Signs: Last Vital Signs Temp 98.8 F 02/16/25 10:45 Pulse 80 02/16/25 10:45 Resp 18 02/16/25 10:45 BP 118/74 02/16/25 10:45 Pulse Ox 98 02/16/25 10:45 Oxygen Delivery Method Room Air 02/16/25 10:45 BMI result Body Mass Index 40.5 Tobacco/Smoking Status: Tobacco use Status Tobacco use date assessed 02/16/25 02/16/25 10:56 Patient Tobacco Use Status Former Tobacco user 02/16/25 10:47 Tobacco use type Cigarette 02/16/25 10:47 e-Cigarette/Vaping Use Never Used 02/16/25 10:47 Thrive Assessment: Date of Thrive Assessment Date Thrive assessed 08/22/24 02/16/25 10:47 Currently or been in a relationship where the following occur: I choose not to answer Const General: no acute distress HENMT Head: Yes normal to inspection Neck Neck: Yes supple Resp Effort & Inspection: normal respiratory effort Auscultation: clear to auscultation bilaterally Cardio Rhythm: regular rhythm Heart sounds: S1 normal heart sound present and S2 normal heart sound present GI Inspection: Yes normal to inspection Palpation (GI): Soft to palpation Percussion: Yes normal to percussion Auscultation: normal bowel sounds Coding Level of Care Code Est Pt Level 4 (70221) Diagnoses Primary hypertension I10 Hypertension type: primary hypertension Type 2 diabetes mellitus without complication, without long-term current use of insulin E11.9 Diabetes mellitus complication status: without complication Diabetes mellitus intermodal customer service insulin use: without intermodal customer service use Vitamin B 12 deficiency E53.8 Assessment & Plan Assessment & Plan (1) Hypertension: Comment: Could not tolerate lisinopril causes dizziness, atenolol caused second-degree AV, losartan caused chest pain and itching, started on amlodipine 2.5 mg recently Code(s): I10 - Essential (primary) hypertension Category: Medical Qualifiers: Hypertension type: primary hypertension Qualified Code(s): I10 - Essential (primary) hypertension Plan: Continue current medications and follow-up with nephrology (2) DM type 2 (diabetes mellitus, type 2): Comment: Trulicity cause diarrhea Code(s): E11.9 - Type 2 diabetes mellitus without complications Category: Medical Qualifiers: Diabetes mellitus complication status: without complication Diabetes mellitus intermodal customer service insulin use: without chcf use Qualified Code(s): E11.9 - Type 2 diabetes mellitus without complications Plan: Continue metformin and ADA diet patient will return for fasting blood work including A1c. (3) Vitamin B 12 deficiency: Code(s): E53.8 - Deficiency of other specified B group vitamins Category: Medical Plan: Continue vitamin B12 supplement Orders: Orders Hemoglobin A1c 3 Months Esha Corbin MD E11.9 - Type 2 diabetes mellitus without complications, E53.8 - Deficiency of other specified B group vitamins, I10 - Essential (primary) hypertension Microalbumin, Random (w Creat) 3 Months Esha Corbin MD E11.9 - Type 2 diabetes mellitus without complications, E53.8 - Deficiency of other specified B group vitamins, I10 - Essential (primary) hypertension PSA,Total (Free>4and<10) 3 Months Esha Corbin MD E11.9 - Type 2 diabetes mellitus without complications, E53.8 - Deficiency of other specified B group vitamins, I10 - Essential (primary) hypertension Comprehensive [place]. Panel Fast 3 Months Esha Corbin MD E11.9 - Type 2 diabetes mellitus without complications, E53.8 - Deficiency of other specified B group vitamins, I10 - Essential (primary) hypertension Complete Blood Count Auto Diff 3 Months Esha Corbin MD E11.9 - Type 2 diabetes mellitus without complications, E53.8 - Deficiency of other specified B group vitamins, I10 - Essential (primary) hypertension Lipid Panel 3 Months Esha Corbin MD E11.9 - Type 2 diabetes mellitus without complications, E53.8 - Deficiency of other specified B group vitamins, I10 - Essential (primary) hypertension Vitamin B12 and Folate 3 Months Esha Corbin MD E11.9 - Type 2 diabetes mellitus without complications, E53.8 - Deficiency of other specified B group vitamins, I10 - Essential (primary) hypertension Vitamin D 25-OH Total 3 Months Esha Corbin MD E11.9 - Type 2 diabetes mellitus without complications, E53.8 - Deficiency of other specified B group vitamins, I10 - Essential (primary) hypertension Medications: Changed From hydralazine 20 mg (2 x 10 mg) PO DAILY 180 tabs 1RF To hydralazine 10 mg PO BID Guido Urbano MD
[2025-02-16 10:45] VITALS: BP 118/74; PULSE 80; RESP 18; TEMP 37.1; O2SAT 98; BMI 40.5
--- OUTSIDE RECORDS SUMMARY | 2025-02-16 11:33 | XMS_ITS | Clinical Summary ---
Author Organization [employer] Address [address] [place] [address] Care Team Providers Care Crisis Worker Name Role Phone Unavailable Primary Care Provider [...] exists Tobacco Screening 02/21/2025 02/22/2024 Influenza Vaccine (#1) 2025 3, 04/25/2022, 06/28/2021, Additional history exists RSV Patients [...] Maintenance Insurance [id number] [place] [id number] MEDICARE [facility] STANDARD [address] [place] [id number] DENTAL-[facility] MEDICAID STAND ADULT [id number] [place] [address] [place] [address] [place] [id number]
--- OUTSIDE RECORDS SUMMARY | 2025-02-16 11:33 | XMS_ITS | Clinical Summary ---
Author Organization [facility] Address [address] [place] [address] Care Team Providers Care Newspaper Photo Editor Name Role Phone Esha Corbin MD Primary Care Provider [phone] Allergies Active Allergy Reactions Criticality Noted Date [...] LAB BLOOD ORDERABLES Final R esult [facility] [address] [place] [address], from Last 3 Months or Most Recently Relevant to Health Maintenance Insurance MEDICARE PART A & B [facility] Care Teams Newspaper Photo Editor Relationship Specialty Start Date End Date Esha Corbin MD [address] [place] [address] PCP - General 08/01/24
--- OUTSIDE RECORDS SUMMARY | 2025-02-16 11:34 | XMS_ITS | Data Portability ---
Author Organization [facility], [facility] Address [address] [place] [address] Assessment No assessment recorded. Plan of Treatment Reminders Order Date Submit Date Provider Last Modified By Organization Details Last Modified Time Details Appointments None recorde d. Lab glucose , fingers tick, blood 023 09/01/19 [email or web address] [facility] [address], [address] [place], [address], 13:59:19 Referral None recorde d. Procedures None recorde d. Surgeries None recorde d. Imaging None recorde d. Medication Orders None recorde d. Patient TargetsNo targets recorded. Patient Instructions Encounter Date Encounter Id Patient Instructions Last Modified By Organization Details Last Modified Time 09/01/2022 [id number] Health Education and Guidance [email or web address] Not available [...] 127 mg/dL 80-140 = normal Not Available [facility] [address] [place], [address], 09/01/2022 13:24:27 09/01/19 23 09/01/2022 gluco sejune rsrosemarie k, blood blood sugar - fasting mg/dL 80-125 = normal Not Available [facility] [address] [place], [address], 09/01/2022 13:24:27 Result Notes None recorded. Problems [...] SNOMED-CT Code Diagnosis ICD10 Code Diagnosis Note [id number][facility] [address] [place] [address] 12/29/2021 16:21:44 12/29/2021 16:55:03 [id number] [place] [address] [place] [address] 09/01/2022 11:38:27 09/01/2022 14:06:01 History and physical examination, pre-employment [id number] Z02.1 Diabetes m ellitus screening [id number] Z13.1 Health Concerns Section Related Observation LastModified [...] Jameel Gallardo 01/01/2023 [facility] Jameel Galalrdo [phone] Jameel Gallardo
== END 2025-02-16 11:48 | disposition home or self-care (01) ==
LOC: HO.HMCC 10:40
PROVIDERS: PCP Internal Medicine; Visit Provider Internal Medicine
DX: I10 Essential (primary) hypertension (principal); E11.9 Type 2 diabetes mellitus without complications; E53.8 Deficiency of other specified B group vitamins

== ENCOUNTER → 2025-02-16 10:39 | Outpatient (BNVA) | payer MEDICARE, MEDICAID, SELFPAY | PROVIDERS: PCP Internal Medicine; Visit Provider Internal Medicine | DX: I10 Essential (primary) hypertension (principal); E11.9 Type 2 diabetes mellitus without complications; E53.8 Deficiency of other specified B group vitamins | CPT/HCPCS: 99212 ==

== ENCOUNTER 2025-02-23 09:18 | Outpatient (REF) | payer MEDICARE, MEDICAID, SELFPAY ==
--- OUTSIDE RECORDS SUMMARY | 2013-04-11 05:48 | XMS_ITS | Continuity of Care Document ---
Author Organization [facility] Address [address] [place] [phone] Phone Care Team Providers Care Internet Sales Consultant Name Role Phone David Haddad MD, [...] Providers Copied on Encounter OFFICE/OUTPA TIENT VISIT, [facility], [address]50 [facility] [address], [place], [id number], [place] tel: [phone] [place] 3 Varicose Veins With Inflammation Sep-0 6 3 Wixon Dann er. 4750 [facility], [address], [id number] , [place]. tel: [phone] Referring Provider: David Covarrubias, [facility] [address], [place], [address]. tel:[phone] [facility], [address] [place] [address] [address], [id number], [place] tel: [phone] [facility] Varicose Veins With InflammationVen ous insufficiency, ChronicSwelling of limbPostphlebet ic syndrome with inflammation Sep-0 4 3 Viviane Rodriguez. 4750 [facility], Ivan [address] [place] [address], [id number] . tel: [phone] OFFICE/OUTPA TIENT VISIT, [facility], [facility]0 [facility] [address], [id number], [place] tel: [phone] [place] 3 Varicose Veins With Inflammation Jan- 3 Geexon Dann er. 4750 [facility], [facility] [address], [place], [id number] , [place]. tel: [phone] Referring Provider: David Covarrubias, [facility]0 [address], [address]. tel:[phone] [facility], [address] [place], [place] [address] [address], [id number], [place] tel:[phone] Procedure No Information 3 Catie Quigley er. [address], [id number] , . tel: [phone] Referring Provider: David Covarrubias, [address] [place] [address], [id number]. tel:[phone] OFFICE/OUTPA TIENT VISIT, [facility], [address] [place] [address], [id number], tel: [phone] [place] 3 Varicose Veins With Inflammation Nov- 2- 3 Wixtatum Quigley er. [address] [place] [address], [id number] , [place]. tel: [phone] Referring Provider: David Covarrubias, [address] [place] [address], [address]. tel:[phone] OFFICE/OUTPA TIENT VISIT, [facility], [address] [place] [address], [id number], tel: [phone] [place] 3 Postphlebetic syndrome with inflammation Nov-0 3 Catie Quigley er. [address] [place] [address], [id number] , [place]. tel: [phone] Referring Provider: Hemal Miranda, [facility]6 [facility] [address] [place] [address], [address]. tel:[phone] [facility], [address] [place] [address], [id number], tel: [phone] [facility] No Information 0 3 Catie Quigley er. [address] [place] [address], [id number] , [place]. tel: [phone] Family History Family Member Type Diagnosis Age At Onset Family Hx of Problem (finding) Obesity Family Hx of Problem (finding) Varicose Veins Family Hx of Problem (finding) DVT Family Hx of Problem (finding) Diabetes mellitus Family Hx of Problem (finding) hypertension Payers Payer name Insurance type Covered democrat ID Authorlamonta donnieon(s) [employer] Choice PPO Medicare Plan CI [id number] Social History Type Description Quantity Date Captured [...]
--- OUTSIDE RECORDS SUMMARY | 2025-02-23 09:44 | XMS_ITS | Clinical Summary ---
Author Organization [employer] Address [address] [facility] 7t [place] [address] Care Team Providers Care Contracts Paralegal Name Role Phone Unavailable Primary Care Provider [...] Maintenance Insurance [address] [place] [id number] MEDICARE [facility] STANDARD [address] [place] [id number] [facility] STAND ADULT [address] [place] [address] [place] [address] [facility] [address] [place] [id number]
--- OUTSIDE RECORDS SUMMARY | 2025-02-23 09:44 | XMS_ITS | Clinical Summary ---
Author Organization [facility]ly [facility] Address [address] [place] [address] Care Team Providers Care Editor Book Name Role Phone Esha Corbin MD Primary Care Provider [phone] Allergies Active Allergy Reactions Criticality Noted Date [...] [facility] [address] [place] [address], from Last 3 Months or Most Recently Relevant to Health Maintenance Insurance [address] [place] [id number] MEDICARE PART A & B [facility] Care Teams Editor Book Relationship Specialty Start Date End Date Esha Corbin MD [address] [place] [address] PCP - General 08/01/24
--- OUTSIDE RECORDS SUMMARY | 2025-02-23 09:45 | XMS_ITS | Data Portability ---
Author Organization [facility], [address] Address [address] [place] [address] Assessment No assessment recorded. Plan of Treatment Reminders Order Date Submit Date Provider Last Modified By Organization Details Last Modified Time Details Appointments None recorde d. Lab glucose , fingers tick, blood 023 09/01/19 [email or web address] [facility], [address] [place], [address], 13:59:19 Referral None recorde d. Procedures None recorde d. Surgeries None recorde d. Imaging None recorde d. Medication Orders None recorde d. Patient TargetsNo targets recorded. Patient Instructions Encounter Date Encounter Id Patient Instructions Last Modified By Organization Details Last Modified Time 09/01/2022 [id number] Health Education and Guidance [email or web address] Not available [...] 127 mg/dL 80-140 = normal Not Available [facility] [address] [place], [address], 09/01/2022 13:24:27 09/01/19 23 09/01/2022 gluco sejune rsrosemarie k, blood blood sugar - fasting mg/dL 80-125 = normal Not Available [facility] [address] [place], [address], 09/01/2022 13:24:27 Result Notes None recorded. Problems [...] SNOMED-CT Code Diagnosis ICD10 Code Diagnosis Note [id number] 20994[facility] [address] [place] [address] 12/29/2021 16:21:44 12/29/2021 16:55:03 [id number] [place] [address] [place] [address] 09/01/2022 11:38:27 09/01/2022 14:06:01 History and physical examination, pre-employment [id number] Z02.1 Diabetes m ellitus screening [id number] Z13.1 Health Concerns Section Related Observation LastModified [...] Jameel Gallardo 01/01/2023 [facility] Jameel Gallardo [phone] Jameel Gallardo
--- OUTSIDE RECORDS SUMMARY | 2025-02-23 09:45 | XMS_ITS | Clinical Summary ---
Author Organization [facility] Address [address] [facility] [address] [place] [address] Phone Care Team Providers Care Rn Primary Care Name Role Phone Pcp, Unknown Primary Care Provider Unavailabl e Allergies No known active allergies Medications atenolol (TENORMIN) 25 MG tablet Take 50 mg by mouth daily. Active warfarin (COUMADIN) 7.5 MG tablet Take 7.5 mg by mouth daily. Sunday 11.25mg Active simvastatin (ZOCOR) 40 MG tablet Take 40 mg by mouth nightly at bedtime. Active metFORMIN (GLUCOPHAGE-XR) 750 MG 24 hr tablet Take 1,500 mg by mouth daily with breakfast. Active Social History Tobacco Use Types Packs/Day Years Used Date Smoking Tobacco: Never Assessed Education Answer Date Recorded Are you interested in more education? Not on augustus e 07/02/2023 Are you concerned about learning? Not on file 07/02/2023 No 07/02/2023 No 07/02/2023 Digital Access Answer Date Recorded No 07/02/2023 No 07/02/2023 Reliable internet access at home? Not on file 07/02/2023 Device with a working camera? Not on file Intimate Partner Violence Answer Date R ecorded Are you denied basic needs s uch as food, clothing, or medical care? No 07/02/2023 In the past 12 months have y ou been in a relationship with a person who hurts, threatens, or tries to control you? No 07/02/2023 Are you denied basic needs s uch as food, clothing, or medical care? No 07/02/2023 In the past 12 months have y ou been in a relationship with a person who hurts, threatens, or tries to control you? No 07/02/2023 Sex and Gender Information Value Date Recorded Sex Assigned at Male 07/02/2023 4:30 PM EST Legal Sex Male 4:09 PM EST Gender Identity Male 07/02/2023 4:30 PM EST Sexual Orientation Not on file Last Filed Vital Signs Vital Sign Reading Time Taken Comments Blood Pressure 116/90 07/02/2023 8:05 PM EST Pulse 72 07/02/2023 8:05 PM EST Temperature 36.6 C (97.9 F) 07/02/2023 6:14 PM EST Respiratory Rate 21 07/02/2023 8:05 PM EST Oxygen Saturation 97% 07/02/2023 8:05 PM EST Inhaled Oxygen Concentration - - Weight 140.6 kg (310 lb) 07/02/2023 4:28 PM EST Height 175.3 cm (5' 9 ) 07/02/2023 4:28 PM EST Body Mass Index 45.78 07/02/2023 4:28 PM EST Plan of Treatment Not on file Medical Devices Not on file [facility] [place] [id number] [place] A [place] B [facility] PART A & B [address] [place] [facility] MEDIC[facility] PART A & B [address] [place], [place] [facility] MEDICARE PART A & B [facility] MEDICARE PART A & B Care Teams Rn Primary Care Relationship Specialty Start Date End Date Pcp, Unknown PCP - General 07/02/23 Additional Source Comments The information contained in this document represents components of the legal health record. It is not the complete legal health record.[facility]
[2025-02-23 10:29] LABS: Hemoglobin A1C 182.4791 umol/L; Total Hemoglobin (HGBA1C) 3848.1465 umol/L
[2025-02-23 10:51] LABS: Alanine Aminotransferase 25 U/L (0-40); Albumin Level 4.2 g/dL (3.5-5.0); Alkaline Phosphatase 54 U/L (39-117); Anion Gap 12 (12-20); Aspartate Amino Transferase 26 U/L (5-37); Blood Urea Nitrogen 17 mg/dL (9-16); Calcium 8.9 mg/dL (8.4-10.2); Carbon Dioxide 26 mmol/L (22-29); Chloride 103 mmol/L (96-108); Cholesterol 125 mg/dL (<200); Estimated Glomerular Filt Rate > 60; HDL Cholesterol 38 mg/dL (>40); Potassium 4.2 mmol/L (3.3-5.1); Sodium 137 mmol/L (135-145); Total Protein 7.6 g/dL (6.5-8.0); Triglycerides 113 mg/dL (<150)
[2025-02-23 10:53] LABS: Microalbum/Creatinine Ratio Ur 11.1 ug/mg cr (<30)
== END 2025-02-23 09:19 | disposition home or self-care (01) ==
LOC: HO.HMGCLDS 09:18
PROVIDERS: PCP Internal Medicine; Visit Provider Internal Medicine
DX: E11.9 Type 2 diabetes mellitus without complications (principal); I10 Essential (primary) hypertension
CPT/HCPCS: 36415; 80053; 80061; 82043; 82570; 83036

== ENCOUNTER 2025-03-05 11:05 | Outpatient (AMB) | payer MEDICARE, MEDICAID, SELFPAY ==
--- OUTSIDE RECORDS SUMMARY | 2014-01-15 12:34 | XMS_ITS | Continuity of Care Document ---
Author Organization [facility] Address [address] [facility] [address] [place] [address] Phone Care Team Providers Care Blankbook Stitching Machine Operator Name Role Phone Karo Harp, Anitha SAN [...] Diagnoses Date Provider Providers Copied on Encounter [facility], [address] [place] [address], [id number] , tel:[phone] [facility] No Information 4 Karo Welsh. [address] [facility] [address], [place], [id number] , . tel:[phone] Referring Provider: Radha Martins MD C, [address], [address] . tel:[phone] Office outpt new 30 min [facility], [address] [facility] [address], [place], [id number] , tel:[phone] [facility] Bilateral Leg CVI & Lt. foot Venous Stasis Ulcer (chief complaint) Varicose veins with ulcerVaricose veins with other complicationsObesity Diabetes Mellitus Type 2, Uncomplicated 4 Karo Welsh. [address] [facility], [address], [place], [place], [id number] , [place]. tel:[phone] Referring Provider: Radha Martins MD C, [address] [facility] [address], [place], [address] . tel:[phone] Family History Family Member Type Diagnosis Age At Onset No Information Payers Payer name Insurance type Covered alliance party ID Authoriza tion(s) [employer] Hmo OCN [place] CAP [id number] Social History Type Description Quantity Date Captured [...] LLE vein stripping (2003 in state of [place]) then Tx'ed by other surgeons in [place] up to last yr. Pt. has had significant Bilateral LLE below the knee dark brown discoloration (Lt. > Rt.) & Lt. LLE Ulcer in Lt. Medial Malleolar area being treated at present by [facility] Wound [facility] (Dr. Carlos), but has [...]
--- NOTE | 2025-03-05 11:12 | HO.NEPHOV_ITS ---
Vital Signs 03/05/25 11:13 Height 5 ft 9 in Weight 275 lb BMI 40.6 BP 120/81 Blood Pressure Location Rt brachial Position Sitting Pulse 77 Pulse Source Pulse Oximeter Pulse Oximetry (%) 97 Oxygen Delivery Method Room Air Intake Visit Reasons: 3 month f/u Conf Pheresis Nurse Required: No Accompanied by: Self / Same As Patient Allergies A & D Allergy (Severe, Verified 03/05/25 11:17) anaphylaxis bacitracin (BACITRACIN) Allergy (Severe, Verified 03/05/25 11:17) SEIZURE , anaphylaxis losartan Allergy (Intermediate, Verified 03/05/25 11:17) Angioedema Sulfa (Sulfonamide Antibiotics) Allergy (Mild, Verified 03/05/25 11:17) SWELLING adhesive tape Allergy (Verified 03/05/25 11:17) Rash atenolol Allergy (Verified 03/05/25 11:17) Heart block AV second degree gabapentin Allergy (Verified 03/05/25 11:17) Hives, elevated BP, leg twitching dapagliflozin (From Farxiga) Adverse Reaction (Intermediate, Verified 03/05/25 11:17) Abdominal Pain dulaglutide (From Trulicity) Adverse Reaction (Intermediate, Verified 03/05/25 11:17) Diarrhea, vomiting lisinopril Adverse Reaction (Intermediate, Verified 03/05/25 11:17) Dizziness lamotrigine Adverse Reaction (Verified 03/05/25 11:17) elevated BP, dizziness sweating semaglutide (From Ozempic) Adverse Reaction (Verified 03/05/25 11:17) Diarrhea tirzepatide (From Mounjaro) Adverse Reaction (Verified 03/05/25 11:17) Constipation losartan Allergy (Uncoded 02/16/25 10:51) feeling like he will pass out SSRI Adverse Reaction (Intermediate, Uncoded 02/16/25 10:51) DECREASE LIBIDO Medication List - Last Reconciled 03/05/25 by Guido Urbano MD amlodipine 2.5 mg PO DAILY blood sugar diagnostic (OpenChimeTouch Ultra Test strips) test blood sugar once a day blood-glucose meter (Remember The Memberuch Ultra2 Meter kit) As directed blood-glucose sensor (DexPassworks G7 Sensor device) As directed CPAP (CPAP Machine/Device) auto PAP 6-20 cm with heated humidification with needed supplies diphenhydramine HCl (Benadryl) 50 mg (2 x 25 mg) PO Q6H PRN hydralazine 10 mg PO BID lancets (OneTouch UltraSoft Lancets) TID lancets (OpenChimeTouch Delica Lancets) test blood sugar daily lancing device with lancets (Wize Delica Lancing Device kit) testing blood sugar once daily meclizine 12.5 mg PO ONCE PRN metformin ER 1,500 mg (2 x 750 mg) PO DAILY hrzxxzimvgnz-kqcfpfzp-hefdkb 1 tab PO DAILY simvastatin 40 mg PO DAILY warfarin 7.5 mg PO DAILY Do you need a note to return to daycare/school/sports/work: No HPI Comments Details: 54-year-old man with a history of obesity and obstructive sleep apnea referred for management of hypertension. He has had hypertension for almost 4 years. Previously was on atenolol. He developed bradycardia therefore atenolol was discontinued. He was subsequently placed on losartan 50 mg. He has had episodes of low blood pressure. He was treated with gabapentin and developed a rash which was discontinued. Subsequently replace with Lamictal and he reacted to this as well which caused significant weakness. He had mild hyponatremia 133. Blood pressure spiked to 220 mm Hg systolic he was in the hospital. After discontinuing the medication blood pressure stabilized. He is here for further evaluation. History of factor 5 laden deficiency. He is on Coumadin. History of obesity 09/08/2024 ;Here for follow-up. Underwent 24 hour ABPM. He has been experiencing some itching and a feeling of tongue swelling while on losartan.No cough. 09/25/24 ;Doing better with Meclizine;No further vertigo ;Still feels dizzy when he walks 09/29/2024. He continues to feel dizzy when he walks. Blood pressures spikes up when he walks. He was in the emergency room with a systolic blood pressure 180. 10/27/24 ;Tolerating Hydralazine ; Spikes up randomly ; Associated with sweating sometimes 11/27/24 : Had an episode of dizziness with BP spike in [employer] Underwent Stress test. 01/09/25 54-year-old male presenting for hypertension management. He reports an episode a month ago whereby climbing stairs caused a significant hypertensive spike, estimated at a high level, accompanied by weakness and lightheadedness. Since then, he has eliminated coffee from his intake and substituted it with green tea. This shift in habit, along with controlled exercise, has resulted in less erratic blood pressure recordings, although readings still flourish upon exertion reaching values such as 157/90 after moderate activity. His blood pressure is typically stable when at rest, usually reading around 120/75, and current treatment includes Amlodipine and Hydralazine, with occasional need for additional Hydralazine. Concurrent management of long- standing Type 2 Diabetes Mellitus shows improvement with Ozempic, maintaining glucose levels under 200 mg/dL predominantly when adhering to dietary measures. Previously, a colonoscopy identified colonic polyps, necessitating a follow-up that is currently postponed due to ongoing concerns regarding autonomic instability. The patient is pursuing further specialist consultations for suspected autonomic dysfunction directly affecting his stability and general wellbeing post-physical exertion. 02/15/2025. Overall doing well tolerating hydralazine. No further dizziness. [facility] Medical History Heart block AV second degree Vitamin B 12 deficiency Dizziness STD (male) DM type 2 (diabetes mellitus, type 2) Venous (peripheral) insufficiency Obesity Hyperlipidemia PVD (peripheral vascular disease) Hypertension DVT (deep venous thrombosis) Factor 5 Leiden mutation, heterozygous SOB (shortness of breath) Surgical History Hx of esophagogastroduodenoscopy Hx of colonoscopy H/O vascular surgery Family History Father CVD (cardiovascular disease) Mother CVD (cardiovascular disease) Daughter No problems noted. Son No problems noted. Social History Household Members: Spouse and Significant Other Housing: House Are you a primary managed care coordinator to a significant other at home: No Do you presently have visiting nurse or other home services: No Alcohol intake: former Patient Tobacco Use Status: Former Tobacco user Tobacco use type: Cigarette e-Cigarette/Vaping Use: Never Used Second Hand Smoke Exposure: No (none) service: No Current occupational status: employed Cognitive needs: No Hearing needs: No Vision needs: No Physical Exam Vital Signs: Last Vital Signs Pulse 77 03/05/25 11:13 BP 120/81 03/05/25 11:13 Pulse Ox 97 03/05/25 11:13 Oxygen Delivery Method Room Air 03/05/25 11:13 BMI result Body Mass Index 40.6 Comfortable Neck supple no JVD. Lungs entry equal no rales. Heart S1-S2 heard no gallop or rub. Abdomen soft nontender. Neuro alert awake oriented. No asterixis. Extremities no edema. Results Reviewed Nephrology Results: Hgb, (14.0-18.0) 15.7 g/dl 02/05/25 WBC, (4.8-10.8) 11.1 X10*3/uL H 02/05/25 Plt Count, (160-400) 239 X10*3/uL 02/05/25 Sodium, (135-145) 137 mmol/L 02/23/25 Potassium, (3.3-5.1) 4.2 mmol/L 02/23/25 Chloride, (96-108) 103 mmol/L 02/23/25 Carbon Dioxide, (22-29) 26 mmol/L 02/23/25 BUN, (9-16) 17 mg/dL H 02/23/25 Creatinine, (0.5-1.4) 0.83 mg/dL 02/23/25 Calcium, (8.4-10.2) 8.9 mg/dL 02/23/25 Urine Protein, (Neg-Trace) 30 (1+) mg/dL H 02/05/25 Urine Creatinine 143.69 mg/dL 02/23/25 Assessment & Plan Assessment & Plan (1) Vertigo: Code(s): R42 - Dizziness and giddiness Category: Medical (2) Hypertension: Comment: Could not tolerate lisinopril causes dizziness, atenolol caused second-degree AV, losartan caused chest pain and itching, started on amlodipine 2.5 mg recently Code(s): I10 - Essential (primary) hypertension Category: Medical Qualifiers: Hypertension type: primary hypertension Qualified Code(s): I10 - Essential (primary) hypertension (3) Autonomic dysfunction: Code(s): G90.9 - Disorder of the autonomic nervous system, unspecified Category: Medical Plan 54 year-old man with obesity and obstructive sleep apnea with hypertension. Blood pressure well controlled at this time. He has had episodes of hypertension as well as blood pressure spikes. No orthostatic blood pressure changes today Encouraged stay on low-sodium diet continue to use CPAP regularly. 24 hour ABPM revealed well-controlled hypertension with nocturnal dipping. He had few episodes of low readings. Therefore I lowered his antihypertensive medication. Since he has had some sensation of tongue swelling with losartan - discontinued losartan. Replaced with amlodipine 2.5 mg. He is on simvastatin therefore I will keep her on a low dose of amlodipine. 09/28/2024. Repeat 24 hour blood pressure monitor revealed normal blood pressure readings while at rest. When he is up and walking systolic blood pressure increases as high as 180 year 190 mm Hg. I will add hydralazine 10 mg p.o. p.r.n. to be used during daytime 10/27/24 ;Keep current meds ; Recheck Metanephrines 11/27/24: Will refer for evaluaiton of autonomic dysfunction 01/09/25: For hypertension, management includes continued adherence to Amlodipine and Hydralazine, with an option for extra doses when needed. A 90-day prescription is beneficial for maintaining steady medication availability. I recommend continuation of dietary and lifestyle modifications for blood pressure and glucose management. Current diabetes management with Ozempic should be maintained given positive results. Concerns regarding autonomic dysfunction await specialist evaluation for further insight. The follow-up for colonic polyps remains on hold until later evaluation of autonomic symptoms at [facility] 03/04/2025. Overall blood pressure acceptable. No changes today. Encouraged him to continue current regimen stay on low-sodium diet. Await follow up in [facility] Coding Level of Care Code Est Pt Level 4 (40673) Diagnoses Vertigo R42 Primary hypertension I10 Hypertension type: primary hypertension Autonomic dysfunction G90.9
[2025-03-05 11:13] VITALS: BP 120/81; PULSE 77; O2SAT 97; BMI 40.6
--- OUTSIDE RECORDS SUMMARY | 2025-03-05 11:58 | XMS_ITS | Clinical Summary ---
Author Organization [facility] Address [address] [facility] [address] [place] [address] Phone Care Team Providers Care Pool Nurse Name Role Phone Pcp, Unknown Primary Care [...] file Medical Devices Not on file [facility] [place] [id number] [place] A [place] B [facility] MEDIC[facility] PART A & B [address] [place], [place] [facility] MEDIC[facility] PART A & B [address] [place], [place] [facility] MEDICARE PART A & B [facility] MEDICARE PART A & B Care Teams Pool Nurse Relationship Specialty Start Date End Date Pcp, Unknown PCP - General 07/02/23 Additional Source Comments The information contained in this document represents components of the legal health record. It is not the complete legal health record.[facility]
--- OUTSIDE RECORDS SUMMARY | 2025-03-05 11:58 | XMS_ITS | Clinical Summary ---
Author Organization [employer] Address [address] [facility] 7t [place] [address] Care Team Providers Care Traffic Survey Technician Name Role Phone Unavailable Primary Care Provider [...] Maintenance Insurance [address] [place] [id number] MEDICARE [facility] STANDARD [address] [place] [id number] [facility] STAND ADULT [address] [place] [address] [facility] [address] [place] [id number]
--- OUTSIDE RECORDS SUMMARY | 2025-03-05 11:58 | XMS_ITS | Clinical Summary ---
Author Organization [facility] Address [address] [place] [address] Care Team Providers Care Web Retailer Name Role Phone Esha Corbin MD Primary Care Provider [phone] Allergies Active Allergy Reactions Criticality Noted Date [...] [facility] [address] [place] [address], from Last 3 Months or Most Recently Relevant to Health Maintenance Insurance [address] [place] [id number] MEDICARE PART A & B [facility] Care Teams Web Retailer Relationship Specialty Start Date End Date Esha Corbin MD [address] [place] [address] PCP - General 08/01/24
== END 2025-03-05 11:32 | disposition home or self-care (01) ==
LOC: HO.HKA 11:06
PROVIDERS: PCP Internal Medicine; Visit Provider Internal Medicine Hypertension Specialist
DX: R42 Dizziness and giddiness (principal); I10 Essential (primary) hypertension; G90.9 Disorder of the autonomic nervous system, unspecified
CPT/HCPCS: 99214

== ENCOUNTER → 2025-03-05 11:05 | Outpatient (BNVA) | payer MEDICARE, MEDICAID, SELFPAY | PROVIDERS: PCP Internal Medicine; Visit Provider Internal Medicine Hypertension Specialist | DX: I10 Essential (primary) hypertension (principal); R42 Dizziness and giddiness; G90.9 Disorder of the autonomic nervous system, unspecified | CPT/HCPCS: 99212 ==

== ENCOUNTER 2025-05-07 11:56 | Outpatient (AMB) | payer MEDICARE, MEDICAID, SELFPAY ==
[2025-05-07 11:58] VITALS: BP 142/82; PULSE 95; O2SAT 98; BMI 41.6
--- NOTE | 2025-05-07 11:58 | HO.NEPHOV ---
Vital Signs 05/07/25 11:58 Height 5 ft 9 in Weight 282 lb BMI 41.6 BP 142/82 H Blood Pressure Location Lt brachial Position Sitting Pulse 95 Pulse Source Pulse Oximeter Pulse Oximetry (%) 98 Oxygen Delivery Method Room Air Intake Visit Reasons: FU / BP Concerns Oxidation Operator Required: No Accompanied by: Spouse Allergies A & D Allergy (Severe, Verified 03/05/25 11:17) anaphylaxis bacitracin (BACITRACIN) Allergy (Severe, Verified 03/05/25 11:17) SEIZURE , anaphylaxis losartan Allergy (Intermediate, Verified 03/05/25 11:17) Angioedema Sulfa (Sulfonamide Antibiotics) Allergy (Mild, Verified 03/05/25 11:17) SWELLING adhesive tape Allergy (Verified 03/05/25 11:17) Rash atenolol Allergy (Verified 03/05/25 11:17) Heart block AV second degree gabapentin Allergy (Verified 03/05/25 11:17) Hives, elevated BP, leg twitching dapagliflozin (From Farxiga) Adverse Reaction (Intermediate, Verified 03/05/25 11:17) Abdominal Pain dulaglutide (From Trulicity) Adverse Reaction (Intermediate, Verified 03/05/25 11:17) Diarrhea, vomiting lisinopril Adverse Reaction (Intermediate, Verified 03/05/25 11:17) Dizziness lamotrigine Adverse Reaction (Verified 03/05/25 11:17) elevated BP, dizziness sweating semaglutide (From Ozempic) Adverse Reaction (Verified 03/05/25 11:17) Diarrhea tirzepatide (From Mounjaro) Adverse Reaction (Verified 03/05/25 11:17) Constipation losartan Allergy (Uncoded 02/16/25 10:51) feeling like he will pass out SSRI Adverse Reaction (Intermediate, Uncoded 02/16/25 10:51) DECREASE LIBIDO Medication List - Last Reconciled 05/07/25 by Guido Urbano MD amlodipine 2.5 mg PO DAILY blood sugar diagnostic ([employer]Touch Ultra Test strips) test blood sugar once a day blood-glucose meter ([employer]Touch Ultra2 Meter kit) As directed blood-glucose sensor (DexXlumena G7 Sensor device) As directed CPAP (CPAP Machine/Device) auto PAP 6-20 cm with heated humidification with needed supplies diphenhydramine HCl (Benadryl) 50 mg (2 x 25 mg) PO Q6H PRN hydralazine 10 mg PO BID lancets ([employer]Touch UltraSoft Lancets) TID lancets ([employer]Touch Delica Lancets) test blood sugar daily lancing device with lancets ([employer] Delica Lancing Device kit) testing blood sugar once daily metformin ER 1,500 mg (2 x 750 mg) PO DAILY tvkrtfhahbcl-dbwouxjf-foyqpt 1 tab PO DAILY simvastatin 40 mg PO DAILY warfarin 7.5 mg PO DAILY HPI Comments Details: 54-year-old man with a history of obesity and obstructive sleep apnea referred for management of hypertension. He has had hypertension for almost 4 years. Previously was on atenolol. He developed bradycardia therefore atenolol was discontinued. He was subsequently placed on losartan 50 mg. He has had episodes of low blood pressure. He was treated with gabapentin and developed a rash which was discontinued. Subsequently replace with Lamictal and he reacted to this as well which caused significant weakness. He had mild hyponatremia 133. Blood pressure spiked to 220 mm Hg systolic he was in the hospital. After discontinuing the medication blood pressure stabilized. He is here for further evaluation. History of factor 5 laden deficiency. He is on Coumadin. History of obesity 09/08/2024 ;Here for follow-up. Underwent 24 hour ABPM. He has been experiencing some itching and a feeling of tongue swelling while on losartan.No cough. 09/25/24 ;Doing better with Meclizine;No further vertigo ;Still feels dizzy when he walks 09/29/2024. He continues to feel dizzy when he walks. Blood pressures spikes up when he walks. He was in the emergency room with a systolic blood pressure 180. 10/27/24 ;Tolerating Hydralazine ; Spikes up randomly ; Associated with sweating sometimes 11/27/24 : Had an episode of dizziness with BP spike in [employer] Underwent Stress test. 01/09/25 54-year-old male presenting for hypertension management. He reports an episode a month ago whereby climbing stairs caused a significant hypertensive spike, estimated at a high level, accompanied by weakness and lightheadedness. Since then, he has eliminated coffee from his intake and substituted it with green tea. This shift in habit, along with controlled exercise, has resulted in less erratic blood pressure recordings, although readings still flourish upon exertion reaching values such as 157/90 after moderate activity. His blood pressure is typically stable when at rest, usually reading around 120/75, and current treatment includes Amlodipine and Hydralazine, with occasional need for additional Hydralazine. Concurrent management of long-standing Type 2 Diabetes Mellitus shows improvement with Ozempic, maintaining glucose levels under 200 mg/dL predominantly when adhering to dietary measures. Previously, a colonoscopy identified colonic polyps, necessitating a follow-up that is currently postponed due to ongoing concerns regarding autonomic instability. The patient is pursuing further specialist consultations for suspected autonomic dysfunction directly affecting his stability and general wellbeing post-physical exertion. 02/15/2025. Overall doing well tolerating hydralazine. No further dizziness. 05/07/25 - The patient is a 55-year-old male presenting with labile hypertension. - Hypertension with readings in the 140s/90s, spiking to 170s. - Symptoms: Headaches, sweating, palpitations, chest discomfort. - Sleep disturbances with elevated BP despite CPAP use. - Medications: Amlodipine 2.5 mg, hydralazine 10 mg, Underwent evaluation for autonomic dysfunction and ruled out PFSH Medical History Heart block AV second degree Vitamin B 12 deficiency Dizziness STD (male) DM type 2 (diabetes mellitus, type 2) Venous (peripheral) insufficiency Obesity Hyperlipidemia PVD (peripheral vascular disease) Hypertension DVT (deep venous thrombosis) Factor 5 Leiden mutation, heterozygous SOB (shortness of breath) Surgical History Hx of esophagogastroduodenoscopy Hx of colonoscopy H/O vascular surgery Family History Father CVD (cardiovascular disease) Mother CVD (cardiovascular disease) Daughter No problems noted. Son No problems noted. Social History Household Members: Spouse and Significant Other Housing: House Are you a primary career development counselor to a significant other at home: No Do you presently have visiting nurse or other home services: No Alcohol intake: former Patient Tobacco Use Status: Former Tobacco user Tobacco use type: Cigarette e-Cigarette/Vaping Use: Never Used Second Hand Smoke Exposure: No (none) service: No Current occupational status: employed Cognitive needs: No Hearing needs: No Vision needs: No Physical Exam Vital Signs: Last Vital Signs Pulse 95 05/07/25 11:58 BP 142/82 H 05/07/25 11:58 Pulse Ox 98 05/07/25 11:58 Oxygen Delivery Method Room Air 05/07/25 11:58 BMI result Body Mass Index 41.6 Comfortable Neck supple no JVD. Lungs entry equal no rales. Heart S1-S2 heard no gallop or rub. Abdomen soft nontender. Neuro alert awake oriented. No asterixis. Extremities no edema. Results Reviewed Nephrology Results: Hgb, (14.0-18.0) 15.7 g/dl 02/05/25 WBC, (4.8-10.8) 11.1 X10*3/uL H 02/05/25 Plt Count, (160-400) 239 X10*3/uL 02/05/25 Sodium, (135-145) 137 mmol/L 02/23/25 Potassium, (3.3-5.1) 4.2 mmol/L 02/23/25 Chloride, (96-108) 103 mmol/L 02/23/25 Carbon Dioxide, (22-29) 26 mmol/L 02/23/25 BUN, (9-16) 17 mg/dL H 02/23/25 Creatinine, (0.5-1.4) 0.83 mg/dL 02/23/25 Calcium, (8.4-10.2) 8.9 mg/dL 02/23/25 Urine Protein, (Neg-Trace) 30 (1+) mg/dL H 02/05/25 Urine Creatinine 143.69 mg/dL 02/23/25 Assessment & Plan Assessment & Plan (1) Vertigo: Code(s): R42 - Dizziness and giddiness Category: Medical (2) Hypertension: Comment: Could not tolerate lisinopril causes dizziness, atenolol caused second-degree AV, losartan caused chest pain and itching, started on amlodipine 2.5 mg recently Code(s): I10 - Essential (primary) hypertension Category: Medical Qualifiers: Hypertension type: primary hypertension Qualified Code(s): I10 - Essential (primary) hypertension Plan 55 year-old man with obesity and obstructive sleep apnea with hypertension. Blood pressure well controlled at this time. He has had episodes of hypertension as well as blood pressure spikes. No orthostatic blood pressure changes today Encouraged stay on low-sodium diet continue to use CPAP regularly. 24 hour ABPM revealed well-controlled hypertension with nocturnal dipping. He had few episodes of low readings. Therefore I lowered his antihypertensive medication. Since he has had some sensation of tongue swelling with losartan - discontinued losartan. Replaced with amlodipine 2.5 mg. He is on simvastatin therefore I will keep her on a low dose of amlodipine. 09/28/2024. Repeat 24 hour blood pressure monitor revealed normal blood pressure readings while at rest. When he is up and walking systolic blood pressure increases as high as 180 year 190 mm Hg. I will add hydralazine 10 mg p.o. p.r.n. to be used during daytime 10/27/24 ;Keep current meds ; Recheck Metanephrines 11/27/24: Will refer for evaluaiton of autonomic dysfunction 01/09/25: For hypertension, management includes continued adherence to Amlodipine and Hydralazine, with an option for extra doses when needed. A 90-day prescription is beneficial for maintaining steady medication availability. I recommend continuation of dietary and lifestyle modifications for blood pressure and glucose management. Current diabetes management with Ozempic should be maintained given positive results. Concerns regarding autonomic dysfunction await specialist evaluation for further insight. The follow-up for colonic polyps remains on hold until later evaluation of autonomic symptoms at [facility] 03/04/2025. Overall blood pressure acceptable. No changes today. Encouraged him to continue current regimen stay on low-sodium diet. Await follow up in [facility] 05/07/25 Labile HTN Increase Hydralazine to 20 mg PO TID [place] BP at home Needs weight loss Medications: New hydralazine 20 mg (2 x 10 mg) PO TID 180 tabs 2RF Coding Level of Care Code Est Pt Level 4 (00842) Diagnoses Vertigo R42 Primary hypertension I10 Hypertension type: primary hypertension
--- OUTSIDE RECORDS SUMMARY | 2025-05-07 13:39 | XMS_ITS | Clinical Summary ---
Author Organization [facility] Address [address] [place] [phone] Phone Care Team Providers Care Sales Product Specialist Name Role Phone Pcp, Unknown Primary Care [...] file Medical Devices Not on file Insurance [employer] [place] [id number] [place] A & B [employer] MED[employer] PART A & B [id number] [place] [facility] PART A & B [address] [place], [place] [employer] MEDICARE PART A & B [facility] MEDICARE PART A & B Care Teams Sales Product Specialist Relationship Specialty Start Date End Date Pcp, Unknown PCP - General 07/02/23 Additional Source Comments The information contained in this document represents components of the legal health record. It is not the complete legal health record.[facility]
--- OUTSIDE RECORDS SUMMARY | 2025-05-07 13:39 | XMS_ITS | Clinical Summary ---
Author Organization [employer] Address [address] [place] [address] Care Team Providers Care Dump Grounds Checker Name Role Phone Unavailable Primary Care Provider [...] Td or Tdap) 08/15/2023 08/15/2013, 08/23/2012, 05/06/2010 Tobacco Screening 02/21/2025 02/22/2024 COVID-19 Vaccine ( season) 2025 05/20/2023, 07/09/2022, 04/25/2022, Additional history exists Influenza Vaccine (#1) 2025 , 04/25/2022, 06/28/2021, Additional history exists RSV Patients [...] Maintenance Insurance [id number] [place] [id number] MEDICARE [facility] STANDARD [id number] [place] [id number] [facility] MEDICAID STAND ADULT [id number] [place] [place] [address] [place] [address] [address] [place] [id number]
--- OUTSIDE RECORDS SUMMARY | 2025-05-07 13:39 | XMS_ITS | Clinical Summary ---
Author Organization [facility] Address [address] [place] [address] Care Team Providers Care Bituminous Paving Machine Operator Name Role Phone Esha Corbin MD Primary Care Provider [phone] Allergies Active Allergy Reactions Criticality Noted Date [...] Zoster (Shingles) Vaccine (1 of 2) 2021 Influenza Vaccine 03/06/2025 08/03/2024 COVID-19 Vaccine ( season) 2025 HIV Screening Completed 08/01/2024 Procedures Procedure Name Priority Date/Time Associated Diagnosis Comments HIV 1/2 AG/AB CMIA REFLEX TO CONFIRMATION STAT 08/01/2024 9:39 PM EST from Last 3 Months or Most Recently Relevant to Health Maintenance Results * HIV 1/2 Ag/Ab CMIA Reflex to Confirmation (08/01/2024 9:39 PM EST) HIV 1/2 Ag/Ab CMIA Nonreactive Nonreactive 08/04/2024 11:01 AM EST [facility] Comment: Results show no [...] DO LAB BLOOD ORDERABLES Final R esult [facility] [address] [employer] [place] [address], from Last 3 Months or Most Recently Relevant to Health Maintenance Insurance [id number] [place] [id number] MEDICARE PART A & B [facility] Care Teams Bituminous Paving Machine Operator Relationship Specialty Start Date End Date Esha Corbin MD [address] [place] [address] PCP - General 08/01/24
== END 2025-05-07 12:18 | disposition home or self-care (01) ==
LOC: HO.HKA 11:57
PROVIDERS: PCP Internal Medicine; Visit Provider Internal Medicine Hypertension Specialist
DX: R42 Dizziness and giddiness (principal); I10 Essential (primary) hypertension
CPT/HCPCS: 99214

== ENCOUNTER → 2025-05-07 11:56 | Outpatient (BNVA) | payer MEDICARE, MEDICAID, SELFPAY | PROVIDERS: PCP Internal Medicine; Visit Provider Internal Medicine Hypertension Specialist | DX: I10 Essential (primary) hypertension (principal); R42 Dizziness and giddiness | CPT/HCPCS: 99212 ==

== ENCOUNTER 2025-05-08 17:35 | Emergency (ER) | payer MEDICARE, MEDICAID, SELFPAY ==
--- NOTE | ~2025-05-08 | CT_ITS ---
CLINICAL HISTORY: Dizziness; Headache CT head without contrast Comparison: Head CT from 08/27/2024 Findings: No acute intracranial hemorrhage. 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 Watershed type infarction versus ANGY branch infarction considered. No significant change in mild-moderate white matter pathology likely due to small-vessel ischemic disease and wallerian degeneration. Metal artifacts noted including of the left parieto-occipital convexities. Fluid and mucosal thickening of the paranasal sinuses. Trace right mastoid effusion. No acute skull fracture. Fluid and/or scarring redemonstrated superficially, over the right parietal convexity. No acute skull fracture. IMPRESSION: 1. No acute intracranial abnormality by CT. 2. No significant change in left frontal encephalomalacia, compared to 08/27/2024. This document has been electronically signed by: Mor Valerio MD on 05/08/2025 23:31:14
[2025-05-08 17:49] VITALS: BP 171/95; PULSE 90; RESP 16; TEMP 36.7; O2SAT 99; BMI 32.3
--- NOTE | 2025-05-08 17:50 | ED_ITS ---
HPI - General Adult General Chief complaint: General Medical Stated complaint: ELEVATED BP; DIZZINESS, PRESSURE IN HEAD Time Seen by Provider: 05/08/25 21:17 Source: patient Mode of arrival: ambulatory Limitations: no limitations History of Present Illness ED Provider: Devan SALGADO HPI narrative: The patient is a 55-year-old male with a history of autonomic dysfunction, APOLLO, factor 5 Leiden on warfarin, hypertension, hyperlipidemia, diabetes, peripheral vascular disease, and anxiety with panic attacks, presenting to the ED for evaluation of waxing and waning hypertension with the associated intermittent headache described as head fullness, jaw pain, dizziness, and right eyelid twitching which occurs when his blood pressure is elevated. The patient reports he is followed by PCP and drywall worker, was increased from 10 mg hydralazine once daily to twice daily 3 months ago. Blood pressure was well-controlled for quite some time however over the past week he has been experiencing the symptoms listed above, and has been checking his blood pressure 3 to 4 times a day with variable blood pressures between 140/90, and 170/95. The patient was seen by his drywall worker yesterday and hydralazine was increased to 20 mg 3 times a day. Patient reports he has been compliant with this change however today his blood pressure did not improve and he presents to the ED for evaluation. The patient denies any near fainting or fainting episodes, denies associated chest pain, pleurisy, shortness of breath, fever/chills, nausea, vomiting, abdominal pain, recent sick contacts, or recent trauma. The patient denies any focal/unilateral weakness, vision changes, or difficulty speaking. Related Data Home Medications ?Medication ?Instructions ?Recorded ?Confirmed lntzwyuzuupn-ncoawcdl-wtcngz tablet 1 tab PO DAILY 05/07/25 Previous Rx's ?Medication ?Instructions ?Recorded blood-glucose meter (MetacloudTouch #1 ea 06/02/21 Ultra2 Meter kit) lancing device with lancets kit #1 ea 06/03/21 (OneTouch Delica Lancing Device kit) diphenhydramine HCl 25 mg capsule 50 mg (2 x 25 mg) PO Q6H PRN 10/04/21 (Benadryl) allergic reaction #20 caps lancets ([employer]acloudTouch UltraSoft #100 ea 07/19/22 Lancets) lancets 33 gauge (OneTouch Delica #100 ea 07/25/22 Lancets) CPAP (CPAP Machine/Device) #1 ea 08/24/22 blood sugar diagnostic ([facility]100 ea 02/08/23 Ultra Test strips) blood-glucose sensor ([employer] G7 #2 ea 03/13/24 Sensor device) simvastatin 40 mg tablet 40 mg PO DAILY #90 tabs 09/06 10/28 metformin 750 mg tablet,extended 1,500 mg (2 x 750 mg) PO DAILY #90 11/12/24 release 24 hr tabs amlodipine 2.5 mg tablet 2.5 mg PO DAILY #90 tabs 10/28 warfarin 7.5 mg tablet 7.5 mg PO DAILY #100 tabs hydralazine 10 mg tablet 20 mg (2 x 10 mg) PO TID #18 0 tabs 05/07/25 Allergies Allergy/AdvReac Type Severity Reaction Status Date / Time A & D Allergy Severe anaphylaxis Verified 05/08/25 17:51 bacitracin (BACITRACIN) Allergy Severe Verified 05/08/25 17:51 SEIZURE , anaphylaxis losartan Allergy Intermediate Angioedema Verified 05/08/25 17:51 Sulfa (Sulfonamide Allergy Mild SWELLING Verified 05/08/25 17:51 Antibiotics) adhesive tape Allergy Rash Verified 05/08/25 17:51 atenolol Allergy Heart Verified 05/08/25 17:51 block AV second degree gabapentin Allergy Hives, Verified 05/08/25 17:51 elevated BP, leg twitching dapagliflozin (From Farxiga) AdvReac Intermediate Abdominal Verified 05/08/25 17:51 Pain dulaglutide (From Trulicity) AdvReac Intermediate Diarrhea, Verified 05/08/25 17:51 vomiting lisinopril AdvReac Intermediate Dizziness Verified 05/08/25 17:51 lamotrigine AdvReac elevated Verified 05/08/25 17:51 BP, dizziness sweating semaglutide (From Ozempic) AdvReac Diarrhea Verified 05/08/25 17:51 tirzepatide (From Mounjaro) AdvReac Constipatio Verified 05/08/25 17:51 n losartan Allergy feeling Uncoded 02/16/25 10:51 like he will pass out SSRI AdvReac Intermediate DECREASE Uncoded 02/16/25 10:51 LIBIDO Review of Systems 2 Review of Systems: Yes all other systems are reviewed and are negative PMFSH Past Medical History Medical History Heart block AV second degree Vitamin B 12 deficiency Dizziness STD (male) DM type 2 (diabetes mellitus, type 2) Venous (peripheral) insufficiency Obesity Hyperlipidemia PVD (peripheral vascular disease) Hypertension DVT (deep venous thrombosis) Factor 5 Leiden mutation, heterozygous SOB (shortness of breath) Surgical History Hx of esophagogastroduodenoscopy Hx of colonoscopy H/O vascular surgery Family History Family History Father CVD (cardiovascular disease) Mother CVD (cardiovascular disease) Daughter No problems noted. Son No problems noted. Social History Social History Household Members: Spouse and Significant Other Housing: House Are you a primary rn intensive care unit to a significant other at home: No Do you presently have visiting nurse or other home services: No Unable to assess alcohol history related to: Unknown Alcohol intake: former Patient Tobacco Use Status: Former Tobacco user Tobacco use type: Cigarette e-Cigarette/Vaping Use: Never Used Second Hand Smoke Exposure: No (none) Use of substances other than those prescribed or required for medical reasons: Unknown Advance Directives: No Advance Directives Information Provided: Yes service: No Current occupational status: employed Cognitive needs: No Hearing needs: No Vision needs: No Physical Exam ED Vital Signs: Vital Signs - 24 hr 05/08/25 17:49 05/08/25 22:48 Temperature 98.1 F 98.4 F Pulse Rate 90 78 Respiratory Rate 16 16 Blood Pressure 171/95 H 160/99 H Pulse Oximetry 99 98 Oxygen Delivery Method Room Air Room Air BMI result Body Mass Index 32.3 CONSTITUTIONAL: The patient appears non-toxic, well nourished and in no acute distress. Vital signs as documented. HEAD: Atraumatic, normocephalic. EYES: EOMs grossly intact, pupils equal, conjunctiva clear, no exudate. ENT: Nares patent, no discharge. Airway patent, no audible stridor, visible mucosa is pink and moist without noted lesions. NECK: Trachea is midline, no obvious masses or gross abnormalities. CHEST: Symmetric movement, normal appearance. LUNGS: LS present and CTAB, no w/r/r. Non-labored work of breathing. CARDIAC: Regular Rhythm, S1/S2 appreciated, no murmurs, rubs or gallops. ABDOMEN: Abdomen soft and non-tender x4 quadrants, no palpable masses or organomegaly. : Deferred. EXTREMITIES: Skin color changes consistent with PVD, otherwise normal tone, moves all extremities spontaneously without reported pain. No obvious acute injury or deformity noted. NEURO: Alert and oriented x3, CN II-XII appear grossly intact. Cerebellar Functioning grossly intact. No obvious sensory or motor deficits. Speech clear and appropriate. PSYCH: normal affect, appropriate eye contact, fluid speech, with appropriate response to questioning. No reported suicidality or homicidality. SKIN: Warm, dry, color appropriate, normal turgor. No rashes noted. Course Course Course Narrative: This is a rapid medical exam performed by Duane Arzola NP: Additional HPI, ROS, PE not included below will be deferred to primary provider. Patient is a 55-year-old male with history of autonomic dysfunction, APOLLO, dysphagia, HTN, factor 5 Leiden mutation, T2DM, HLD presenting with a few days of head and jaw pressure, epigastric tightness and right eye twitching, dizziness with ambulation. Saw PCP who increased his hydralazine but he has not noted any changes. Plan: EKG, labs Medical Decision Making Medical Decision Making MDM Narrative: 9:56 PM 05/08/2025 (Corie SALGADO): The patient is a 55-year-old male with a history of autonomic dysfunction, APOLLO, factor 5 Leiden on warfarin, hypertension, hyperlipidemia, diabetes, peripheral vascular disease, and anxiety with panic attacks, presenting to the ED for evaluation of waxing and waning hypertension with the associated intermittent headache described as head fullness, jaw pain, dizziness, and right eyelid twitching which occurs when his blood pressure is elevated. The patient reports he is followed by PCP and drywall worker, was increased from 10 mg hydralazine once daily to twice daily 3 months ago. Blood pressure was well-controlled for quite some time however over the past week he has been experiencing the symptoms listed above, and has been checking his blood pressure 3 to 4 times a day with variable blood pressures between 140/90, and 170/95. The patient was seen by his drywall worker yesterday and hydralazine was increased to 20 mg 3 times a day. Patient reports he has been compliant with this change however today his blood pressure did not improve and he presents to the ED for evaluation. The patient denies any near fainting or fainting episodes, denies associated chest pain, pleurisy, shortness of breath, fever/chills, nausea, vomiting, abdominal pain, recent sick contacts, or recent trauma. The patient denies any focal/unilateral weakness, vision changes, or difficulty speaking. On exam the patient is in no acute distress. Patient checked his blood pressure during interview on his wrist cuff which was approximately 130/84. Patient's EKG shows no ischemia, initial troponin is negative. The patient's laboratory evaluation shows no leukocytosis, anemia, electrolyte abnormality, or MODESTA. LFTs are unremarkable. INR is therapeutic at 2.1. There is no indication for emergent antihypertensive medications at this time. The patient will be sent for CT head to rule out neurologic pathology secondary to hypertension, and we will repeat troponin to confirm no myocardial injury. Of note the patient reports he regularly checks his blood pressure upon waking in the morning as thats is when most people have heart attacks , checks it again after any physical activity such as going for walks, checks it again every evening while at rest, and again prior to going to sleep. This provider attempted to educate the patient on normal variability/fluctuation of blood pressure throughout the day, and recommended that the patient may want to consider checking his blood pressure less frequently as frequent blood pressure checks can lead to increased anxiety and actually increase his blood pressure. Advised checking his heart rate during and after physical activity was appropriate, however blood pressure should only be checked if patient was experiencing concerning symptoms. The patient was extremely resistant to this recommendation and stated he would not change the frequency of his blood pressure checks. We will follow up repeat troponin and CT head, pending no evidence of end-organ damage from hypertension patient will be discharged to follow up with his PCP and drywall worker for continued management. 11:49 PM 05/08/2025 (Corie SALGADO): Patient's repeat troponin is negative, CT shows no acute intracranial pathology. Patient will be discharged as discussed above. Admission/Observation Consideration of admission/observation: Escalation of care including admission/observation considered Lab Data MDM Lab Attestation statement: I reviewed the patient's lab results. 05/08/25 18:08 05/08/25 18:07 Labs: Lab Results 05/08/25 05/08/25 05/08/25 Range/Units 18:07 18:08 22:26 WBC 8.5 (4.8-10.8) X10*3/uL RBC 4.79 (4.60-5.80) X10*6/uL Hgb 14.6 (14.0-18.0) g/dl Hct 43.2 (42.0-52.0) % MCV 90.2 (80.0-98.0) fL MCH 30.5 (27.0-33.0) pg MCHC 33.8 (31.0-36.0) g/dl RDW 12.8 (11.0-16.0) % Plt Count 224 (160-400) X10*3/uL MPV 9.7 (9.4-12.4) fL Immature Gran % (Auto) 0.4 (0.0-0.4) % Neut % (Auto) 65.6 (45-73) % Lymph % (Auto) 26.3 (20-40) % [place] % (Auto) 5.8 (2-11) % Eos % (Auto) 1.3 (0-4) % Baso % (Auto) 0.6 (0-2) % Lymph # (Auto) 2.2 (1.2-4.9) X10*3/uL [place] # (Auto) 0.5 (0.1-1.2) X10*3/uL Eos # (Auto) 0.1 (0.0-0.4) X10*3/uL Baso # (Auto) 0.1 (0.0-0.2) X10*3/uL Abs Immat Gran (auto) 0.03 (0.00-0.03) X10*3/uL Absolute Neuts (auto) 5.6 (2.0-8.3) x10*3/uL Absolute Nucleated RBC 0.000 (0.0-0.012) X10*3/uL Nucleated RBC % (auto) 0.0 (0.0-0.2) /100WBC PT 23.6 H D (10.9-12.4) SEC INR 2.1 H D (0.9-1.1) Sodium 137 (135-145) mmol/L Potassium 4.0 (3.3-5.1) mmol/L Chloride 103 (96-108) mmol/L Carbon Dioxide 24 (22-29) mmol/L Anion Gap 14 (12-20) BUN 16 (9-16) mg/dL Creatinine 0.84 (0.5-1.4) mg/dL Estim Creat Clear Calc 120.3 Estimated GFR > 60 Random Glucose 210 H (60-115) mg/dL Calcium 9.2 (8.4-10.2) mg/dL Magnesium 2.1 (1.6-2.6) mg/dL Total Bilirubin 0.5 (0.0-1.0) mg/dL AST 29 (5-37) U/L ALT 31 (0-40) U/L Alkaline Phosphatase 56 (39-117) U/L Troponin I High Sens < 2.7 < 2.7 (<3.5-35.0) ng/L Total Protein 7.7 (6.5-8.0) g/dL Albumin 4.4 (3.5-5.0) g/dL Independent Interpretation I performed an independent interpretation of an: EKG (EKG shows sinus rhythm with first-degree AV block with a rate of 85, no evidence of acute ischemia, no ST elevation, no ectopy. QTC 433. Compared to previous on 02/05/2025 there are no significant morphology changes. ) Radiology Impression Discussion of test interpretation with radiology: I have reviewed the radiologist's reading. Radiologist Impression: CLINICAL HISTORY: Dizziness; Headache CT head without contrast Comparison: Head CT from 08/27/2024 Findings: No acute intracranial hemorrhage. 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 Watershed type infarction versus ANGY branch infarction considered. No significant change in mild-moderate white matter pathology likely due to small-vessel ischemic disease and wallerian degeneration. Metal artifacts noted including of the left parieto-occipital convexities. Fluid and mucosal thickening of the paranasal sinuses. Trace right mastoid effusion. No acute skull fracture. Fluid and/or scarring redemonstrated superficially, over the right parietal convexity. No acute skull fracture. IMPRESSION: 1. No acute intracranial abnormality by CT. 2. No significant change in left frontal encephalomalacia, compared to 08/27/2024. This document has been electronically signed by: Mor Valerio MD on 05/08/2025 23:31:14 External Record Review External record reviewed: Outpatient record and Prior outpatient labs Chronic Conditions Patient?s care impacted by: Diabetes and Hypertension Discharge Plan Discharge Clinical Impression: Hypertension Qualifiers: Hypertension type: primary hypertension Qualified Code(s): I10 - Essential (primary) hypertension Patient Disposition: Home, Self-Care Instructions: Heart Healthy Diet (ED), Peripheral Vascular Disease (ED), Chronic Hypertension (ED), Low-Sodium Diet (ED) Additional Instructions: Thank you for choosing [facility]'s Emergency Department for your care today. Thankfully your laboratory evaluation, EKG, CT head, and exam today are all reassuring. At this time there is no indication for admission to the hospital or continued ED observation, and it is safe to discharge you home. There was no evidence of any end-organ damage to your heart, kidneys, or brain as a result of your blood pressure. As such there was no indication for emergent lowering of your blood pressure in the ED today. Blood pressure, especially the top (systolic) number can vary greatly throughout the day and is highly dependent varying activity levels, mental states, and body positions. It is recommended that you only check your blood pressure when experiencing concerning symptoms, as checking your blood pressure too often can cause increased anxiety about your health and incidentally increase your blood pressure. Please follow up with your drywall worker and primary care physician for re- evaluation, additional management of your symptoms, and continued preventative care. If you do not have a primary care physician, please call the [facility] at [phone] to establish a new primary care physician. While waiting to establish your new primary care physician, you can call our Walk-in Care [facility] at [phone] for non-emergency needs. Please return to the emergency department if you develop a severe or sudden change in your symptoms, a fever over 100.4 that does not improve with Tylenol or Ibuprofen, recurrent vomiting, or any other new or worsening symptoms or concerns. Prescriptions: No Action (DME) blood-glucose meter [OneTouch Ultra2 Meter] Kit See Rx Instructions .Route Qty: 1 0RF Rx Instructions: As directed (DME) lancing device with lancets [OneTouch Delica Lanc Device] Kit See Rx Instructions .Route Qty: 1 0RF Rx Instructions: testing blood sugar once daily (DME) lancets [OneTouch Delica Lancets] 33 gauge misc See Rx Instructions .Route Qty: 100 3RF Rx Instructions: test blood sugar daily (DME) CPAP Machine/Device Device See Rx Instructions .Route Qty: 1 0RF Rx Instructions: auto PAP 6-20 cm with heated humidification with needed supplies (DME) OneTouch Ultra Test Strip See Rx Instructions .Route Qty: 100 3RF Rx Instructions: test blood sugar once a day simvastatin 40 mg tablet 40 mg PO DAILY Qty: 90 2RF metformin 750 mg tablet extended release 24 hr 1,500 mg PO DAILY Qty: 90 3RF amlodipine 2.5 mg tablet 2.5 mg PO DAILY Qty: 90 5RF warfarin 7.5 mg tablet 7.5 mg PO DAILY Qty: 100 1RF Rx Instructions: Adjust according to INR results diphenhydramine HCl [Benadryl] 25 mg capsule 50 mg PO Q6H PRN (Reason: allergic reaction) Qty: 20 0RF (DME) lancets [OneTouch UltraSoft Lancets] Misc See Rx Instructions .ROUTE .MEDSUPPLY Qty: 100 6RF Rx Instructions: TID (DME) Dexcom G7 Sensor Device See Rx Instructions .Route Qty: 2 2RF Rx Instructions: As directed gvqfnfkdbuky-qtqgudfy-byrrjx Tablet 1 tab PO DAILY hydralazine 10 mg tablet 20 mg PO TID Qty: 180 2RF Referrals: Esha Corbin MD [Primary Care Provider, Internal Medicine] Clinical Impression: Hypertension Print Language: Slovak
--- NOTE | 2025-05-08 17:52 | ECG_ITS ---
Test Reason : CHEST TIGHTNESS Blood Pressure : */* mmHG Vent. Rate : 85 BPM Atrial Rate : 85 BPM P-R Int : 232 ms QRS Dur : 74 ms QT Int : 364 ms P-R-T Axes : 55 -8 23 degrees QTcB Int : 433 ms Sinus rhythm with 1st degree A-V block Otherwise normal ECG When compared with ECG of 05-Feb-2025 09:33, No significant changes seen Referred By: Kiara Arzola Electronically Signed By: OWEN MERCEDES
[2025-05-08 18:13] LABS: MANUAL DIFF FLAG NO
[2025-05-08 18:30] LABS: Alanine Aminotransferase 31 U/L (0-40); Albumin Level 4.4 g/dL (3.5-5.0); Alkaline Phosphatase 56 U/L (39-117); Anion Gap 14 (12-20); Aspartate Amino Transferase 29 U/L (5-37); Blood Urea Nitrogen 16 mg/dL (9-16); Calcium 9.2 mg/dL (8.4-10.2); Carbon Dioxide 24 mmol/L (22-29); Chloride 103 mmol/L (96-108); Creatinine Clr Calc Pharmacy 120.3; Estimated Glomerular Filt Rate > 60; Magnesium 2.1 mg/dL (1.6-2.6); Potassium 4.0 mmol/L (3.3-5.1); Sodium 137 mmol/L (135-145); Total Protein 7.7 g/dL (6.5-8.0)
[2025-05-08 18:38] LABS: INTERNATIONAL NORM RATIO 2.1 (0.9-1.1); Prothrombin Time 23.6 SEC (10.9-12.4)
[2025-05-08 18:40] LABS: Hematocrit 43.2 % (42.0-52.0); Hemoglobin 14.6 g/dl (14.0-18.0); Imm Gran Abs Auto 0.03 X10*3/uL (0.00-0.03); Imm Gran Pct Auto 0.4 % (0.0-0.4); Lymphocytes Absolute Auto 2.2 X10*3/uL (1.2-4.9); Mean Corpuscular HGB Conc 33.8 g/dl (31.0-36.0); Mean Corpuscular Hemoglobin 30.5 pg (27.0-33.0); Mean Corpuscular Volume 90.2 fL (80.0-98.0); NRBC Abs Auto 0.000 X10*3/uL (0.0-0.012); NRBC Pct Auto 0.0 /100WBC (0.0-0.2); Platelet Count 224 X10*3/uL (160-400); Red Blood Count 4.79 X10*6/uL (4.60-5.80); Troponin-I High Sensitivity < 2.7 ng/L (<3.5-35.0); White Blood Count 8.5 X10*3/uL (4.8-10.8)
--- OUTSIDE RECORDS SUMMARY | 2025-05-08 20:22 | XMS_ITS | Clinical Summary ---
Author Organization [employer] Address [address] [place] [address] Care Team Providers Care Printing Machine Operator Name Role Phone Unavailable Primary Care Provider [...] Maintenance Insurance [address] [place] [id number] MEDICARE [facility] STANDARD [address] [place] [id number] [facility] MEDICA[facility] STAND ADULT [id number] [place] [address] [place] [address] [place] [id number]
--- OUTSIDE RECORDS SUMMARY | 2025-05-08 20:22 | XMS_ITS | Clinical Summary ---
Author Organization [facility] Address [address] [place] [address] Care Team Providers Care Yard Coupler Name Role Phone Esha Corbin MD Primary Care Provider [phone] Allergies Active Allergy Reactions Criticality Noted Date [...] CMIA Nonreactive Nonreactive 08/04/2024 11:01 AM EST [facility] Comment: Results show no evidence [...] DO LAB BLOOD ORDERABLES Final R esult [facility] [address] [place] [address], from Last 3 Months or Most Recently Relevant to Health Maintenance Insurance [id number] [place] [id number] MEDICARE PART A & B [facility] Care Teams Yard Coupler Relationship Specialty Start Date End Date Esha Corbin MD [address] [place] [address] PCP - General 08/01/24
--- OUTSIDE RECORDS SUMMARY | 2025-05-08 20:23 | XMS_ITS | Clinical Summary ---
Author Organization [facility] Address [address] [place] [phone] Phone Care Team Providers Care Rail Splitter Name Role Phone Pcp, Unknown Primary Care [...] file Medical Devices Not on file [facility] [place] [id number] [place] A & [place] [facility] & B [id number] [place] [facility]IC[facility] PART A & B [address] [place] [facility] MEDIC[facility] PART A & B [facility] MEDICARE PART A & B Care Teams Rail Splitter Relationship Specialty Start Date End Date Pcp, Unknown PCP - General 07/02/23 Additional Source Comments The information contained in this document represents components of the legal health record. It is not the complete legal health record.[facility]
[2025-05-08 22:48] VITALS: BP 160/99; PULSE 78; RESP 16; TEMP 36.9; O2SAT 98
[2025-05-08 22:56] LABS: Troponin-I High Sensitivity < 2.7 ng/L (<3.5-35.0)
[2025-05-09] VITALS: BP 160/99; PULSE 78; RESP 16; TEMP 36.9; O2SAT 98
== END 2025-05-09 | disposition home or self-care (01) ==
PROVIDERS: Physician Assistant; Registered Nurse Emergency; Emergency Provider Emergency Medicine; PCP Internal Medicine
DX: R42 Dizziness and giddiness (principal); I10 Essential (primary) hypertension; D68.51 Activated protein C resistance; R51.9 Headache, unspecified; R07.89 Other chest pain; E11.9 Type 2 diabetes mellitus without complications; I44.0 Atrioventricular block, first degree; Z79.84 Long term (current) use of oral hypoglycemic drugs; Z79.899 Other long term (current) drug therapy
CPT/HCPCS: 36415; 70450; 80053; 83735; 84484; 85025; 85610; 93005; 99284

== ENCOUNTER → 2025-05-08 17:52 | Outpatient (BNV) | payer MEDICARE, MEDICAID, SELFPAY | PROVIDERS: Emergency Provider Emergency Medicine; PCP Internal Medicine; Visit Provider Internal Medicine | DX: I44.0 Atrioventricular block, first degree (principal) | CPT/HCPCS: 93010 ==

== ENCOUNTER → 2025-05-08 21:53 | Outpatient (BNV) | payer MEDICARE, MEDICAID, SELFPAY | PROVIDERS: Emergency Provider Emergency Medicine; PCP Internal Medicine; Visit Provider Radiology Neuroradiology | DX: R51.9 Headache, unspecified (principal) | CPT/HCPCS: 70450 ==

== ENCOUNTER 2025-05-12 09:53 | Outpatient (AMB) | payer MEDICARE, MEDICAID, SELFPAY ==
[2025-05-12 09:55] VITALS: BP 158/90; PULSE 95; O2SAT 97; BMI 41.8
--- NOTE | 2025-05-12 09:55 | HO.NEPHOV_ITS ---
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 Required: No Accompanied by: Spouse Allergies A & D Allergy (Severe, Verified 05/12/25 09:57) anaphylaxis bacitracin (BACITRACIN) Allergy (Severe, Verified 05/12/25 09:57) SEIZURE , anaphylaxis losartan Allergy (Intermediate, Verified 05/12/25 09:57) Angioedema Sulfa (Sulfonamide Antibiotics) Allergy (Mild, Verified 05/12/25 09:57) SWELLING adhesive tape Allergy (Verified 05/12/25 09:57) Rash atenolol Allergy (Verified 05/12/25 09:57) Heart block AV second degree gabapentin Allergy (Verified 05/12/25 09:57) Hives, elevated BP, leg twitching dapagliflozin (From Farxiga) Adverse Reaction (Intermediate, Verified 05/12/25 09:57) Abdominal Pain dulaglutide (From Trulicity) Adverse Reaction (Intermediate, Verified 05/12/25 09:57) Diarrhea, vomiting lisinopril Adverse Reaction (Intermediate, Verified 05/12/25 09:57) Dizziness lamotrigine Adverse Reaction (Verified 05/12/25 09:57) elevated BP, dizziness sweating semaglutide (From Ozempic) Adverse Reaction (Verified 05/12/25 09:57) Diarrhea tirzepatide (From Mounjaro) Adverse Reaction (Verified 05/12/25 09:57) Constipation losartan Allergy (Uncoded 02/16/25 10:51) feeling like he will pass out SSRI Adverse Reaction (Intermediate, Uncoded 02/16/25 10:51) DECREASE LIBIDO Medication List - Last Reconciled 05/12/25 by Guido Urbano MD amlodipine 2.5 mg PO DAILY blood sugar diagnostic (AniikaTouch Ultra Test strips) test blood sugar once a day blood-glucose meter (SpiderOakuch Ultra2 Meter kit) As directed blood-glucose sensor (CM Sistemi G7 Sensor device) As directed CPAP (CPAP Machine/Device) auto PAP 6-20 cm with heated humidification with needed supplies diphenhydramine HCl (Benadryl) 50 mg (2 x 25 mg) PO Q6H PRN hydralazine 10 mg PO TID lancets (OneTouch UltraSoft Lancets) TID lancets (AniikaTouch Delica Lancets) test blood sugar daily lancing device with lancets (RMDMgroup Delica Lancing Device kit) testing blood sugar once daily metformin ER 1,500 mg (2 x 750 mg) PO DAILY qmlzjiylpvet-bwoctgyx-ufkkyb 1 tab PO DAILY simvastatin 40 mg PO DAILY warfarin 7.5 mg PO DAILY HPI Comments Details: 54-year-old man with a history of obesity and obstructive sleep apnea referred for management of hypertension. He has had hypertension for almost 4 years. Previously was on atenolol. He developed bradycardia therefore atenolol was discontinued. He was subsequently placed on losartan 50 mg. He has had episodes of low blood pressure. He was treated with gabapentin and developed a rash which was discontinued. Subsequently replace with Lamictal and he reacted to this as well which caused significant weakness. He had mild hyponatremia 133. Blood pressure spiked to 220 mm Hg systolic he was in the hospital. After discontinuing the medication blood pressure stabilized. He is here for further evaluation. History of factor 5 laden deficiency. He is on Coumadin. History of obesity 09/08/2024 ;Here for follow-up. Underwent 24 hour ABPM. He has been experiencing some itching and a feeling of tongue swelling while on losartan.No cough. 09/25/24 ;Doing better with Meclizine;No further vertigo ;Still feels dizzy when he walks 09/29/2024. He continues to feel dizzy when he walks. Blood pressures spikes up when he walks. He was in the emergency room with a systolic blood pressure 180. 10/27/24 ;Tolerating Hydralazine ; Spikes up randomly ; Associated with sweating sometimes 11/27/24 : Had an episode of dizziness with BP spike in [employer] Underwent Stress test. 01/09/25 54-year-old male presenting for hypertension management. He reports an episode a month ago whereby climbing stairs caused a significant hypertensive spike, estimated at a high level, accompanied by weakness and lightheadedness. Since then, he has eliminated coffee from his intake and substituted it with green tea. This shift in habit, along with controlled exercise, has resulted in less erratic blood pressure recordings, although readings still flourish upon exertion reaching values such as 157/90 after moderate activity. His blood pressure is typically stable when at rest, usually reading around 120/75, and current treatment includes Amlodipine and Hydralazine, with occasional need for additional Hydralazine. Concurrent management of long- standing Type 2 Diabetes Mellitus shows improvement with Ozempic, maintaining glucose levels under 200 mg/dL predominantly when adhering to dietary measures. Previously, a colonoscopy identified colonic polyps, necessitating a follow-up that is currently postponed due to ongoing concerns regarding autonomic instability. The patient is pursuing further specialist consultations for suspected autonomic dysfunction directly affecting his stability and general wellbeing post-physical exertion. 02/15/2025. Overall doing well tolerating hydralazine. No further dizziness. 05/07/25 - The patient is a 55-year-old male presenting with labile hypertension. - Hypertension with readings in the 140s/90s, spiking to 170s. - Symptoms: Headaches, sweating, palpitations, chest discomfort. - Sleep disturbances with elevated BP despite CPAP use. - Medications: Amlodipine 2.5 mg, hydralazine 10 mg, Underwent evaluation for autonomic dysfunction and ruled out 05/12/25 Unable to tolerate Hydralazine 20 mg TID [facility] Medical History Heart block AV second degree Vitamin B 12 deficiency Dizziness STD (male) DM type 2 (diabetes mellitus, type 2) Venous (peripheral) insufficiency Obesity Hyperlipidemia PVD (peripheral vascular disease) Hypertension DVT (deep venous thrombosis) Factor 5 Leiden mutation, heterozygous SOB (shortness of breath) Surgical History Hx of esophagogastroduodenoscopy Hx of colonoscopy H/O vascular surgery Family History Father CVD (cardiovascular disease) Mother CVD (cardiovascular disease) Daughter No problems noted. Son No problems noted. Social History Household Members: Spouse and Significant Other Housing: House Are you a primary certified caregiver to a significant other at home: No Do you presently have visiting nurse or other home services: No Alcohol intake: former Patient Tobacco Use Status: Former Tobacco user Tobacco use type: Cigarette e-Cigarette/Vaping Use: Never Used Second Hand Smoke Exposure: No (none) service: No Current occupational status: employed Cognitive needs: No Hearing needs: No Vision needs: No Physical Exam Vital Signs: Last Vital Signs Pulse 95 05/12/25 09:55 BP 158/90 H 05/12/25 09:55 Pulse Ox 97 05/12/25 09:55 Oxygen Delivery Method Room Air 05/12/25 09:55 BMI result Body Mass Index 41.8 Comfortable Neck supple no JVD. Lungs entry equal no rales. Heart S1-S2 heard no gallop or rub. Abdomen soft nontender. Neuro alert awake oriented. No asterixis. Extremities no edema. Results Reviewed Nephrology Results: Hgb, (14.0-18.0) 14.6 g/dl 05/08/25 WBC, (4.8-10.8) 8.5 X10*3/uL 05/08/25 Plt Count, (160-400) 224 X10*3/uL 05/08/25 Sodium, (135-145) 137 mmol/L 05/08/25 Potassium, (3.3-5.1) 4.0 mmol/L 05/08/25 Chloride, (96-108) 103 mmol/L 05/08/25 Carbon Dioxide, (22-29) 24 mmol/L 05/08/25 BUN, (9-16) 16 mg/dL 05/08/25 Creatinine, (0.5-1.4) 0.84 mg/dL 05/08/25 Calcium, (8.4-10.2) 9.2 mg/dL 05/08/25 Urine Creatinine 143.69 mg/dL 02/23/25 Assessment & Plan Assessment & Plan (1) Vertigo: Code(s): R42 - Dizziness and giddiness Category: Medical (2) Hypertension: Comment: Could not tolerate lisinopril causes dizziness, atenolol caused second-degree AV, losartan caused chest pain and itching, started on amlodipine 2.5 mg recently Code(s): I10 - Essential (primary) hypertension Category: Medical Qualifiers: Hypertension type: primary hypertension Qualified Code(s): I10 - Essential (primary) hypertension Plan 55 year-old man with obesity and obstructive sleep apnea with hypertension. Blood pressure well controlled at this time. He has had episodes of hypertension as well as blood pressure spikes. No orthostatic blood pressure changes today Encouraged stay on low-sodium diet continue to use CPAP regularly. 24 hour ABPM revealed well-controlled hypertension with nocturnal dipping. He had few episodes of low readings. Therefore I lowered his antihypertensive medication. Since he has had some sensation of tongue swelling with losartan - discontinued losartan. Replaced with amlodipine 2.5 mg. He is on simvastatin therefore I will keep her on a low dose of amlodipine. 09/28/2024. Repeat 24 hour blood pressure monitor revealed normal blood pressure readings while at rest. When he is up and walking systolic blood pressure increases as h igh as 180 year 190 mm Hg. I will add hydralazine 10 mg p.o. p.r.n. to be used during daytime 10/27/24 ;Keep current meds ; Recheck Metanephrines 11/27/24: Will refer for evaluaiton of autonomic dysfunction 01/09/25: For hypertension, management includes continued adherence to Amlodipine and Hydralazine, with an option for extra doses when needed. A 90-day prescription is beneficial for maintaining steady medication availability. I recommend continuation of dietary and lifestyle modifications for blood pressure and glucose management. Current diabetes management with Ozempic should be maintained given positive results. Concerns regarding autonomic dysfunction await specialist evaluation for further insight. The follow-up for colonic polyps remains on hold until later evaluation of autonomic symptoms at [facility] 03/04/2025. Overall blood pressure acceptable. No changes today. Encouraged him to continue current regimen stay on low-sodium diet. Await follow up in [facility] 05/07/25 Labile HTN Increase Hydralazine to 20 mg PO TID [place] BP at home Needs weight loss 05/12/25 Difficult to control HTN SEnsitive to various medications. Decrease hydralzine to 10 mg TID Increase AMlodipine 5 mg QD Medications: Changed From hydralazine 20 mg (2 x 10 mg) PO TID 180 tabs 2RF To hydralazine 10 mg PO TID From amlodipine 2.5 mg PO DAILY 90 tabs 5RF To amlodipine 5 mg PO DAILY 30 tabs 5RF Coding Level of Care Code Est Pt Level 4 (80388) Diagnoses Vertigo R42 Primary hypertension I10 Hypertension type: primary hypertension
--- OUTSIDE RECORDS SUMMARY | 2025-05-12 11:29 | XMS_ITS | Clinical Summary ---
Author Organization [facility] Address [address] [place] [id number] Phone Care Team Providers Care Operational Assistant Name Role Phone Pcp, Unknown Primary Care [...] file Medical Devices Not on file [facility] [place] [id number] [place] A [place] B [facility] [id number] [place] [facility] PART A & B [id number] [place] [facility] B [facility] MEDIC[facility] PART A & B Care Teams Operational Assistant Relationship Specialty Start Date End Date Pcp, Unknown PCP - General 07/02/23 Additional Source Comments The information contained in this document represents components of the legal health record. It is not the complete legal health record.[facility]
--- OUTSIDE RECORDS SUMMARY | 2025-05-12 11:29 | XMS_ITS | Clinical Summary ---
Author Organization [employer] Address [address] [place] [address] Care Team Providers Care Roofer Assistant Name Role Phone Unavailable Primary Care Provider [...] Maintenance Insurance [address] [place] [id number] MEDICARE [facility] STANDARD [id number] [place] [id number] [facility] STAND ADULT [id number] [place] [id number] [place] [id number] [facility] [address] [place] [id number]
--- OUTSIDE RECORDS SUMMARY | 2025-05-12 11:29 | XMS_ITS | Clinical Summary ---
Author Organization [facility] Address [address] [place] [address] Care Team Providers Care Pulverizer Name Role Phone Esha Corbin MD Primary Care Provider [phone] Allergies Active Allergy Reactions Criticality Noted Date [...] CMIA Nonreactive Nonreactive 08/04/2024 11:01 AM EST [facility] Comment: Results show no [...] DO LAB BLOOD ORDERABLES Final R esult [facility] [address] [place] [address], from Last 3 Months or Most Recently Relevant to Health Maintenance Insurance [id number] [place] [id number] MEDICARE PART A & B [facility] Care Teams Pulverizer Relationship Specialty Start Date End Date Esha Corbin MD [address] [place] [address] PCP - General 08/01/24
== END 2025-05-12 10:11 | disposition home or self-care (01) ==
LOC: HO.HKA 09:53
PROVIDERS: PCP Internal Medicine; Visit Provider Internal Medicine Hypertension Specialist
DX: R42 Dizziness and giddiness (principal); I10 Essential (primary) hypertension
CPT/HCPCS: 99214

== ENCOUNTER → 2025-05-12 09:53 | Outpatient (BNVA) | payer MEDICARE, MEDICAID, SELFPAY | PROVIDERS: PCP Internal Medicine; Visit Provider Internal Medicine Hypertension Specialist | DX: R42 Dizziness and giddiness (principal); I10 Essential (primary) hypertension; G47.33 Obstructive sleep apnea (adult) (pediatric); Z99.89 Dependence on other enabling machines and devices; E66.9 Obesity, unspecified | CPT/HCPCS: 99212 ==

== ENCOUNTER 2025-05-25 10:00 | Outpatient (REF) | payer MEDICARE, MEDICAID, SELFPAY ==
[2025-05-25 13:18] LABS: MANUAL DIFF FLAG NO
[2025-05-25 13:31] LABS: Hematocrit 46.0 % (42.0-52.0); Hemoglobin 15.5 g/dl (14.0-18.0); Imm Gran Abs Auto 0.04 X10*3/uL (0.00-0.03); Imm Gran Pct Auto 0.6 % (0.0-0.4); Lymphocytes Absolute Auto 1.7 X10*3/uL (1.2-4.9); Mean Corpuscular HGB Conc 33.7 g/dl (31.0-36.0); Mean Corpuscular Hemoglobin 30.5 pg (27.0-33.0); Mean Corpuscular Volume 90.6 fL (80.0-98.0); NRBC Abs Auto 0.000 X10*3/uL (0.0-0.012); NRBC Pct Auto 0.0 /100WBC (0.0-0.2); Platelet Count 245 X10*3/uL (160-400); Red Blood Count 5.08 X10*6/uL (4.60-5.80); White Blood Count 7.2 X10*3/uL (4.8-10.8)
[2025-05-25 13:57] LABS: Alanine Aminotransferase 23 U/L (0-40); Albumin Level 4.3 g/dL (3.5-5.0); Alkaline Phosphatase 52 U/L (39-117); Anion Gap 12 (12-20); Aspartate Amino Transferase 23 U/L (5-37); Blood Urea Nitrogen 15 mg/dL (9-16); Calcium 9.1 mg/dL (8.4-10.2); Carbon Dioxide 27 mmol/L (22-29); Chloride 103 mmol/L (96-108); Cholesterol 154 mg/dL (<200); Estimated Glomerular Filt Rate > 60; HDL Cholesterol 44 mg/dL (>40); Potassium 4.2 mmol/L (3.3-5.1); Sodium 138 mmol/L (135-145); Total Protein 7.7 g/dL (6.5-8.0); Triglycerides 166 mg/dL (<150)
[2025-05-25 14:12] LABS: Microalbum/Creatinine Ratio Ur 12.2 ug/mg cr (<30)
[2025-05-25 14:17] LABS: PSA,Total (Free>4and<10) 0.56 ng/mL (0.00-4.00)
[2025-05-25 14:31] LABS: Folate 12.0 ng/mL (> or = 4.0); Vitamin B12 189 pg/mL (200-900)
== END 2025-05-25 10:01 | disposition home or self-care (01) ==
LOC: HO.HMGCLDS 10:00
PROVIDERS: PCP Internal Medicine; Visit Provider Internal Medicine
DX: I10 Essential (primary) hypertension (principal); E11.9 Type 2 diabetes mellitus without complications; E53.8 Deficiency of other specified B group vitamins; Z12.5 Encounter for screening for malignant neoplasm of prostate
CPT/HCPCS: 36415; 80053; 80061; 82043; 82306; 82570; 82607; 82746; 83036; 84153; 85025

== ENCOUNTER 2025-05-29 11:42 | Outpatient (AMB) | payer MEDICARE, MEDICAID, SELFPAY ==
--- NOTE | 2025-05-29 12:10 | A.OFFPC_ITS ---
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 Required: No Allergies A & D Allergy (Severe, Verified 05/29/25 12:13) anaphylaxis bacitracin (BACITRACIN) Allergy (Severe, Verified 05/29/25 12:13) SEIZURE , anaphylaxis losartan Allergy (Intermediate, Verified 05/29/25 12:13) Angioedema Sulfa (Sulfonamide Antibiotics) Allergy (Mild, Verified 05/29/25 12:13) SWELLING adhesive tape Allergy (Verified 05/29/25 12:13) Rash atenolol Allergy (Verified 05/29/25 12:13) Heart block AV second degree gabapentin Allergy (Verified 05/29/25 12:13) Hives, elevated BP, leg twitching dapagliflozin (From Farxiga) Adverse Reaction (Intermediate, Verified 05/29/25 12:13) Abdominal Pain dulaglutide (From Trulicity) Adverse Reaction (Intermediate, Verified 05/29/25 12:13) Diarrhea, vomiting lisinopril Adverse Reaction (Intermediate, Verified 05/29/25 12:13) Dizziness lamotrigine Adverse Reaction (Verified 05/29/25 12:13) elevated BP, dizziness sweating semaglutide (From Ozempic) Adverse Reaction (Verified 05/29/25 12:13) Diarrhea tirzepatide (From Mounjaro) Adverse Reaction (Verified 05/29/25 12:13) Constipation losartan Allergy (Uncoded 02/16/25 10:51) feeling like he will pass out SSRI Adverse Reaction (Intermediate, Uncoded 02/16/25 10:51) DECREASE LIBIDO Medication List - Last Reconciled 05/29/25 by Esha Corbin MD amlodipine 5 mg PO DAILY blood sugar diagnostic (FlowCouch Ultra Test strips) test blood sugar once a day blood-glucose meter (FlowCouch Ultra2 Meter kit) As directed blood-glucose sensor (Admetric G7 Sensor device) As directed CPAP (CPAP Machine/Device) auto PAP 6-20 cm with heated humidification with needed supplies diphenhydramine HCl (Benadryl) 50 mg (2 x 25 mg) PO Q6H PRN empagliflozin (Jardiance) 10 mg PO DAILY lancets ([employer]IP ParkingTouch UltraSoft Lancets) TID lancets (VIP ParkingTouch Delica Lancets) test blood sugar daily lancing device with lancets (VIP ParkingTouch Delica Lancing Device kit) testing blood sugar once daily metformin ER 1,500 mg (2 x 750 mg) PO DAILY simvastatin 40 mg PO DAILY warfarin 7.5 mg PO DAILY Tobacco use date assessed: 05/29/25 Dental Screening Dental Screen Date: 05/29/25 Did you have a dental visit in the last 12 months?: No Did you have a dental problem in the last 6 months where you did not have access to dental care?: No Was dental information given to patient?: Patient has dentist HPI Annual PE HPI Details Pt presents for PE. The patient follows up with Nephrology for labile hypertension. He reports blood pressure well controlled on 7.5 mg of amlodipine patient denies any episodes of recurrent dizziness patient has been monitoring his blood glucose with a fasting readings between 120-160. He could not tolerate GLP 1 agonist developed abdominal pain and constipation PFSH Medical History (Updated 05/29/25 @ 13:20 by Esha Corbin MD) Heart block AV second degree Vitamin B 12 deficiency Dizziness STD (male) DM type 2 (diabetes mellitus, type 2) Venous (peripheral) insufficiency Obesity Hyperlipidemia PVD (peripheral vascular disease) Hypertension DVT (deep venous thrombosis) Factor 5 Leiden mutation, heterozygous SOB (shortness of breath) Surgical History Hx of esophagogastroduodenoscopy Hx of colonoscopy H/O vascular surgery Family History Father CVD (cardiovascular disease) Mother CVD (cardiovascular disease) Daughter No problems noted. Son No problems noted. Social History Household Members: Spouse and Significant Other Housing: House Are you a primary care attendant to a significant other at home: No Do you presently have visiting nurse or other home services: No Alcohol intake: former Patient Tobacco Use Status: Former Tobacco user Tobacco use type: Cigarette e-Cigarette/Vaping Use: Never Used Second Hand Smoke Exposure: No (none) service: No Current occupational status: employed Cognitive needs: No Hearing needs: No Vision needs: No Questionnaire Thrive Questionnaire Date Thrive assessed: 08/22/24 I am a: Patient What is your living situation today?: I have a steady place to live Within the past 12 months, did the food you bought not last and you didn't have the money to get more?: I choose not to answer this question Within the past 12 months, did you worry whether your food would run out before you got money to buy more?: I choose not to answer this question Do you have trouble paying for medicines?: I choose not to answer this question Do you have trouble getting transportation to medical appointments?: I choose not to answer this question Do you have trouble paying your heating and electricity bill?: I choose not to answer this question Do you have trouble taking care of your child, family member or friend?: I choose not to answer this question Do you have trouble with day-to-day activities such as bathing, preparing meals, shopping, managing finances, etc.?: I choose not to answer this question Are you currently unemployed and looking for a job?: I choose not to answer this question Are you interested in more education?: I choose not to answer this question Please select the resources that you would like help with: None Currently or been in a relationship where the following occur: I choose not to answer THRIVE Score: 0 ANISA-7 AMB Questionnaire ANISA-7 Date ANISA - 7 assessed: 12/01/24 Source: Developed by Drs. Marco Antonio Zhu, Ginger Freed, Se Bahena and colleagues, with an educational teresita from [employer]. Review of Systems Const All systems reviewed & are unremarkable except as noted in HPI and below Eyes Reports no additional complaints ENT Reports no additional complaints Card Reports no additional complaints Resp Reports no additional complaints GI Reports no additional complaints Reports no additional complaints Physical exam (Primary Care) Vital Signs: Last Vital Signs Temp 98.4 F 05/29/25 12:11 Pulse 79 05/29/25 12:11 BP 132/90 H 05/29/25 12:11 Pulse Ox 98 05/29/25 12:11 Oxygen Delivery Method Room Air 05/29/25 12:11 BMI result Body Mass Index 42.1 Tobacco/Smoking Status: Tobacco use Status Tobacco use date assessed 05/29/25 05/29/25 12:16 Patient Tobacco Use Status Former Tobacco user 05/29/25 12:16 Tobacco use type Cigarette 05/29/25 12:16 e-Cigarette/Vaping Use Never Used 05/29/25 12:16 Thrive Assessment: Date of Thrive Assessment Date Thrive assessed 08/22/24 05/29/25 12:16 Currently or been in a relationship where the following occur: I choose not to answer Const General: no acute distress HENMT Head: Yes normal to inspection Face and sinus: Yes normal facial exam Throat: Yes posterior oropharynx normal Eyes General: appearance normal, both eyes and all related structures Neck Neck: Yes no lymphadenopathy and Yes supple Resp Effort & Inspection: normal respiratory effort Auscultation: clear to auscultation bilaterally Cardio Rhythm: regular rhythm Heart sounds: S1 normal heart sound present and S2 normal heart sound present GI Inspection: Yes normal to inspection Palpation (GI): Soft to palpation Percussion: Yes normal to percussion Auscultation: normal bowel sounds Extrem General: Yes no clubbing, cyanosis or edema Coding Level of Care Code Est Pt Prev Care 40-64y(16645) Diagnoses Vitamin B 12 deficiency E53.8 Primary hypertension I10 Hypertension type: primary hypertension Hyperlipidemia E78.5 Factor 5 Leiden mutation, heterozygous D68.51 Type 2 diabetes mellitus without complication, without long-term current use of insulin E11.9 Diabetes mellitus continuous churn buttermaker insulin use: without continuous churn buttermaker use Diabetes mellitus complication status: without complication Annual physical exam Z00.00 Overweight E66.3 Assessment & Plan Assessment & Plan (1) Vitamin B 12 deficiency: Code(s): E53.8 - Deficiency of other specified B group vitamins Category: Medical Plan: Start vitamin B12 1000 mcg daily and repeat B12 level in 1 month (2) Hypertension: Comment: Could not tolerate lisinopril causes dizziness, atenolol caused second-degree AV, losartan caused chest pain and itching, started on amlodipine 2.5 mg recently, established with Nephrology Code(s): I10 - Essential (primary) hypertension Category: Medical Qualifiers: Hypertension type: primary hypertension Qualified Code(s): I10 - Essential (primary) hypertension Plan: Follow-up with nephrology for hypertension mentioned (3) Hyperlipidemia: Code(s): E78.5 - Hyperlipidemia, unspecified Category: Medical Plan: Continue statin (4) Factor 5 Leiden mutation, heterozygous: Comment: on Warfarin Code(s): 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 Jardiance 10 mg will be added to metformin. Patient was advised to monitoring his fasting glucose daily. He will follow-up in 3 months with a fasting labs before (6) Annual physical exam: Code(s): Z00.00 - Encounter for general adult medical examination without abnormal findings Category: Medical Plan: Well-balanced diet regular physical activity discussed with the patient he will contact GI to schedule repeat colonoscopy (7) Overweight: Comment: BMI 42.1 Code(s): E66.3 - Overweight Category: Medical Plan: DECREASING CALORIC INTAKE INCREASING PHYSICAL ACTIVITY WEIGHT LOSS DISCUSSED WITH THE PATIENT Orders: Orders Hemoglobin A1c 3 Months E11.9 - Type 2 diabetes mellitus without complications, E78.5 - Hyperlipidemia, unspecified, I10 - Essential (primary) hypertension Comprehensive [place]. Panel Fast 3 Months E11.9 - Type 2 diabetes mellitus without complications, E78.5 - Hyperlipidemia, unspecified, I10 - Essential (primary) hypertension Microalbumin, Random (w Creat) 3 Months E11.9 - Type 2 diabetes mellitus without complications, E78.5 - Hyperlipidemia, unspecified, I10 - Essential (primary) hypertension Vitamin B12 and Folate 1 Month E53.8 - Deficiency of other specified B group vitamins Lipid Panel 3 Months E11.9 - Type 2 diabetes mellitus without complications, E78.5 - Hyperlipidemia, unspecified, I10 - Essential (primary) hypertension Medications: New empagliflozin (Jardiance) 10 mg PO DAILY 90 tabs 3RF cyanocobalamin (vitamin B-12) 1,000 mcg PO DAILY 90 tabs 0RF
[2025-05-29 12:11] VITALS: BP 132/90; PULSE 79; TEMP 36.9; O2SAT 98; BMI 42.1
--- OUTSIDE RECORDS SUMMARY | 2025-05-29 14:05 | XMS_ITS | Clinical Summary ---
Author Organization [facility] Address [address] [place] [address] Care Team Providers Care Canal Driver Name Role Phone Esha Corbin MD Primary Care Provider [phone] Allergies Active Allergy Reactions Criticality Noted Date [...] 50+ (1 of 1 - PCV) 2021 RSV Vaccine 50 years and old er and Patients (1 - Risk 50-74 years 1-dose series) 2021 Zoster (Shingles) Vaccine (1 of 2) 2021 Influenza Vaccine 03/06/2025 08/03/2024 COVID-19 Vaccine ( - season) 2025 HIV Screening Completed 08/01/2024 Procedures Procedure Name Priority Date/Time Associated Diagnosis Comments HIV 1/2 AG/AB CMIA REFLEX TO CONFIRMATION STAT 08/01/2024 9:39 PM EST from Last 3 Months or Most Recently Relevant to Health Maintenance Results * HIV 1/2 Ag/Ab CMIA Reflex to Confirmation (08/01/2024 9:39 PM EST) HIV 1/2 Ag/Ab CMIA Nonreactive Nonreactive 08/04/2024 11:[address] [facility] Comment: Results show [...] DO LAB BLOOD ORDERABLES Final R esult [facility] [address]I [address] from Last 3 Months or Most Recently Relevant to Health Maintenance Insurance [address] [facility] [place] [id number] MEDICARE PART A & B [facility] Care Teams Canal Driver Relationship Specialty Start Date End Date Esha Corbin MD [address] [place] [address] PCP - General 08/01/24
--- OUTSIDE RECORDS SUMMARY | 2025-05-29 14:06 | XMS_ITS | Clinical Summary ---
Author Organization [employer] Address [address] [facility] 7t [place] [address] Care Team Providers Care Cosmetics Machine Operator Name Role Phone Unavailable Primary [...] Maintenance Insurance [address] [place] [id number] MEDICARE [facility] STANDARD 2062 [address] [place] [id number] [facility] MEDICAID STAND ADULT 2062 [address] [place] [address] [place] [address] [facility] [address] [place] [id number]
--- OUTSIDE RECORDS SUMMARY | 2025-05-29 14:06 | XMS_ITS | Clinical Summary ---
Author Organization [facility] Address [address] [facility] [address] [place] [address] Phone Care Team Providers Care Carrot Tier Name Role Phone Pcp, Unknown Primary Care [...] file Medical Devices Not on file Insurance [facility] [employer] [place] [id number] [place] A & B [facility] & B [address] [place], [place] [facility] A & B [address] [place], [place] [facility]IC[facility] PART A & B [facility] MEDICARE PART A & B Care Teams Carrot Tier Relationship Specialty Start Date End Date Pcp, Unknown PCP - General 07/02/23 Additional Source Comments The information contained in this document represents components of the legal health record. It is not the complete legal health record.[facility]
== END 2025-05-29 13:21 | disposition home or self-care (01) ==
LOC: HO.HMCC 11:43
PROVIDERS: PCP Internal Medicine; Visit Provider Internal Medicine
DX: Z00.00 Encounter for general adult medical examination without abnormal findings (principal); E11.69 Type 2 diabetes mellitus with other specified complication; E66.3 Overweight; Z68.41 Body mass index [BMI] 40.0-44.9, adult; E53.8 Deficiency of other specified B group vitamins; I10 Essential (primary) hypertension; E78.5 Hyperlipidemia, unspecified; D68.51 Activated protein C resistance

== ENCOUNTER → 2025-05-29 11:42 | Outpatient (BNVA) | payer MEDICARE, MEDICAID, SELFPAY | PROVIDERS: PCP Internal Medicine; Visit Provider Internal Medicine | DX: Z00.00 Encounter for general adult medical examination without abnormal findings (principal); I10 Essential (primary) hypertension; E53.8 Deficiency of other specified B group vitamins; D68.51 Activated protein C resistance; E78.5 Hyperlipidemia, unspecified; E11.9 Type 2 diabetes mellitus without complications; E66.3 Overweight | CPT/HCPCS: 99396 ==

== ENCOUNTER 2025-06-01 14:26 | Outpatient (AMB) | payer MEDICARE, MEDICAID, SELFPAY ==
[2025-06-01 14:40] VITALS: BP 138/82; PULSE 97; O2SAT 95; BMI 41.6
--- NOTE | 2025-06-01 14:40 | HO.NEPHOV_ITS ---
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 Turbine Technician Required: No Accompanied by: Spouse Allergies A & D Allergy (Severe, Verified 06/01/25 14:42) anaphylaxis bacitracin (BACITRACIN) Allergy (Severe, Verified 06/01/25 14:42) SEIZURE , anaphylaxis losartan Allergy (Intermediate, Verified 06/01/25 14:42) Angioedema Sulfa (Sulfonamide Antibiotics) Allergy (Mild, Verified 06/01/25 14:42) SWELLING adhesive tape Allergy (Verified 06/01/25 14:42) Rash atenolol Allergy (Verified 06/01/25 14:42) Heart block AV second degree gabapentin Allergy (Verified 06/01/25 14:42) Hives, elevated BP, leg twitching dapagliflozin (From Farxiga) Adverse Reaction (Intermediate, Verified 06/01/25 14:42) Abdominal Pain dulaglutide (From Trulicity) Adverse Reaction (Intermediate, Verified 06/01/25 14:42) Diarrhea, vomiting lisinopril Adverse Reaction (Intermediate, Verified 06/01/25 14:42) Dizziness lamotrigine Adverse Reaction (Verified 06/01/25 14:42) elevated BP, dizziness sweating semaglutide (From Ozempic) Adverse Reaction (Verified 06/01/25 14:42) Diarrhea tirzepatide (From Mounjaro) Adverse Reaction (Verified 06/01/25 14:42) Constipation losartan Allergy (Uncoded 02/16/25 10:51) feeling like he will pass out SSRI Adverse Reaction (Intermediate, Uncoded 02/16/25 10:51) DECREASE LIBIDO Medication List - Last Reconciled 06/01/25 by Guido Urbano MD amlodipine 10 mg PO DAILY blood sugar diagnostic (PersonalingTouch Ultra Test strips) test blood sugar once a day blood-glucose meter (PersonalingTouch Ultra2 Meter kit) As directed blood-glucose sensor (Dexcom G7 Sensor device) As directed CPAP (CPAP Machine/Device) auto PAP 6-20 cm with heated humidification with needed supplies cyanocobalamin (vitamin B-12) 1,000 mcg PO DAILY diphenhydramine HCl (Benadryl) 50 mg (2 x 25 mg) PO Q6H PRN empagliflozin (Jardiance) 10 mg PO DAILY lancets (Nurigeneuch UltraSoft Lancets) TID lancets (Nurigeneuch Delica Lancets) test blood sugar daily lancing device with lancets (Spontacts Delica Lancing Device kit) testing blood sugar once daily metformin ER 1,500 mg (2 x 750 mg) PO DAILY simvastatin 40 mg PO DAILY warfarin 7.5 mg PO DAILY HPI Comments Details: 54-year-old man with a history of obesity and obstructive sleep apnea referred for management of hypertension. He has had hypertension for almost 4 years. Previously was on atenolol. He developed bradycardia therefore atenolol was discontinued. He was subsequently placed on losartan 50 mg. He has had episodes of low blood pressure. He was treated with gabapentin and developed a rash which was discontinued. Subsequently replace with Lamictal and he reacted to this as well which caused significant weakness. He had mild hyponatremia 133. Blood pressure spiked to 220 mm Hg systolic he was in the hospital. After discontinuing the medication blood pressure stabilized. He is here for further evaluation. History of factor 5 laden deficiency. He is on Coumadin. History of obesity 09/08/2024 ;Here for follow-up. Underwent 24 hour ABPM. He has been experiencing some itching and a feeling of tongue swelling while on losartan.No cough. 09/25/24 ;Doing better with Meclizine;No further vertigo ;Still feels dizzy when he walks 09/29/2024. He continues to feel dizzy when he walks. Blood pressures spikes up when he walks. He was in the emergency room with a systolic blood pressure 180. 10/27/24 ;Tolerating Hydralazine ; Spikes up randomly ; Associated with sweating sometimes 11/27/24 : Had an episode of dizziness with BP spike in [employer] Underwent Stress test. 01/09/25 54-year-old male presenting for hypertension management. He reports an episode a month ago whereby climbing stairs caused a significant hypertensive spike, estimated at a high level, accompanied by weakness and lightheadedness. Since then, he has eliminated coffee from his intake and substituted it with green tea. This shift in habit, along with controlled exercise, has resulted in less erratic blood pressure recordings, although readings still flourish upon exertion reaching values such as 157/90 after moderate activity. His blood pressure is typically stable when at rest, usually reading around 120/75, and current treatment includes Amlodipine and Hydralazine, with occasional need for additional Hydralazine. Concurrent management of long- standing Type 2 Diabetes Mellitus shows improvement with Ozempic, maintaining glucose levels under 200 mg/dL predominantly when adhering to dietary measures. Previously, a colonoscopy identified colonic polyps, necessitating a follow-up that is currently postponed due to ongoing concerns regarding autonomic instability. The patient is pursuing further specialist consultations for suspected autonomic dysfunction directly affecting his stability and general wellbeing post-physical exertion. 02/15/2025. Overall doing well tolerating hydralazine. No further dizziness. 05/07/25 - The patient is a 55-year-old male presenting with labile hypertension. - Hypertension with readings in the 140s/90s, spiking to 170s. - Symptoms: Headaches, sweating, palpitations, chest discomfort. - Sleep disturbances with elevated BP despite CPAP use. - Medications: Amlodipine 2.5 mg, hydralazine 10 mg, Underwent evaluation for autonomic dysfunction and ruled out 05/12/25 Unable to tolerate Hydralazine 20 mg TID 06/01/25 - The patient is a 55-year-old male presenting with hypertension and hyperlipidemia. Off Hydralazine Start Amlodipine 5 mg and increased to 10 mg. - Hypertension: Managed with amlodipine 10 mg daily, previously on hydrocodone. - Blood pressure stabilized at 130/80 mmHg. - Hyperlipidemia: On Simvastatin 40 mg [facility] Medical History (Updated 05/29/25 @ 13:20 by Esha Corbin MD) Heart block AV second degree Vitamin B 12 deficiency Dizziness STD (male) DM type 2 (diabetes mellitus, type 2) Venous (peripheral) insufficiency Obesity Hyperlipidemia PVD (peripheral vascular disease) Hypertension DVT (deep venous thrombosis) Factor 5 Leiden mutation, heterozygous SOB (shortness of breath) Surgical History Hx of esophagogastroduodenoscopy Hx of colonoscopy H/O vascular surgery Family History Father CVD (cardiovascular disease) Mother CVD (cardiovascular disease) Daughter No problems noted. Son No problems noted. Social History Household Members: Spouse and Significant Other Housing: House Are you a primary critical care nurse specialist to a significant other at home: No Do you presently have visiting nurse or other home services: No Alcohol intake: former Patient Tobacco Use Status: Former Tobacco user Tobacco use type: Cigarette e-Cigarette/Vaping Use: Never Used Second Hand Smoke Exposure: No (none) service: No Current occupational status: employed Cognitive needs: No Hearing needs: No Vision needs: No Physical Exam Vital Signs: Last Vital Signs Pulse 97 06/01/25 14:40 BP 138/82 06/01/25 14:40 Pulse Ox 95 06/01/25 14:40 Oxygen Delivery Method Room Air 06/01/25 14:40 BMI result Body Mass Index 41.6 Results Reviewed Nephrology Results: 2 Hgb, (14.0-18.0) 15.5 g/dl 05/25/25 WBC, (4.8-10.8) 7.2 X10*3/uL 05/25/25 Plt Count, (160-400) 245 X10*3/uL 05/25/25 Sodium, (135-145) 138 mmol/L 05/25/25 Potassium, (3.3-5.1) 4.2 mmol/L 05/25/25 Chloride, (96-108) 103 mmol/L 05/25/25 Carbon Dioxide, (22-29) 27 mmol/L 05/25/25 BUN, (9-16) 15 mg/dL 05/25/25 Creatinine, (0.5-1.4) 0.74 mg/dL 05/25/25 Calcium, (8.4-10.2) 9.1 mg/dL 05/25/25 Urine Creatinine 97.74 mg/dL 05/25/25 Assessment & Plan Assessment & Plan (1) Vertigo: Code(s): R42 - Dizziness and giddiness Category: Medical (2) Hypertension: Comment: Could not tolerate lisinopril causes dizziness, atenolol caused second-degree AV, losartan caused chest pain and itching, started on amlodipine 2.5 mg recently, established with Nephrology Code(s): I10 - Essential (primary) hypertension Category: Medical Qualifiers: Hypertension type: primary hypertension Qualified Code(s): I10 - Essential (primary) hypertension Plan 55 year-old man with obesity and obstructive sleep apnea with hypertension. Blood pressure well controlled at this time. He has had episodes of hypertension as well as blood pressure spikes. No orthostatic blood pressure changes today Encouraged stay on low-sodium diet continue to use CPAP regularly. 24 hour ABPM revealed well-controlled hypertension with nocturnal dipping. He had few episodes of low readings. Therefore I lowered his antihypertensive medication. Since he has had some sensation of tongue swelling with losartan - discontinued losartan. Replaced with amlodipine 2.5 mg. He is on simvastatin therefore I will keep her on a low dose of amlodipine. 09/28/2024. Repeat 24 hour blood pressure monitor revealed normal blood pressure readings while at rest. When he is up and walking systolic blood pressure increases as high as 180 year 190 mm Hg. I will add hydralazine 10 mg p.o. p.r.n. to be used during daytime 10/27/24 ;Keep current meds ; Recheck Metanephrines 11/27/24: Will refer for evaluaiton of autonomic dysfunction 01/09/25: For hypertension, management includes continued adherence to Amlodipine and Hydralazine, with an option for extra doses when needed. A 90-day prescription is beneficial for maintaining steady medication availability. I recommend continuation of dietary and lifestyle modifications for blood pressure and glucose management. Current diabetes management with Ozempic should be maintained given positive results. Concerns regarding autonomic dysfunction await specialist evaluation for further insight. The follow-up for colonic polyps remains on hold until later evaluation of autonomic symptoms at [facility] 03/04/2025. Overall blood pressure acceptable. No changes today. Encouraged him to continue current regimen stay on low-sodium diet. Await follow up in [facility] 05/07/25 Labile HTN Increase Hydralazine to 20 mg PO TID [place] BP at home Needs weight loss 05/12/25 Difficult to control HTN SEnsitive to various medications. Decrease hydralzine to 10 mg TID Increase AMlodipine 5 mg QD 06/01/25 BP well controlled. Keep AMlodipine 10 mg QD Decrease Simvastatin to 20 mg QD Medications: New amlodipine 10 mg (2 x 5 mg) PO DAILY 60 tabs 3RF Changed From simvastatin 40 mg PO DAILY 90 tabs 2RF To simvastatin 20 mg PO DAILY 30 tabs 3RF Coding Level of Care Code Est Pt Level 3 (13383) Diagnoses Vertigo R42 Primary hypertension I10 Hypertension type: primary hypertension
--- OUTSIDE RECORDS SUMMARY | 2025-06-01 18:03 | XMS_ITS | Clinical Summary ---
Author Organization [facility] Address [address] [place] [address] Care Team Providers Care Bath Attendant Name Role Phone Esha Corbin MD Primary Care Provider [phone] Allergies Active Allergy Reactions Criticality Noted Date [...] Nonreactive Nonreactive 08/04/2024 11:01 AM EST [facility] Comment: Results show no evidence [...] LAB BLOOD ORDERABLES Final R esult [facility] [address]ins[address]annielle [address]AJI [address] from Last 3 Months or Most Recently Relevant to Health Maintenance Insurance [address] [facility] [place] [id number] MEDICARE PART A & B [facility] Care Teams Bath Attendant Relationship Specialty Start Date End Date Esha Corbin MD [address] [place] [address] PCP - General 08/01/24
--- OUTSIDE RECORDS SUMMARY | 2025-06-01 18:03 | XMS_ITS | Clinical Summary ---
Author Organization [employer] Address [address] [facility] 7t [place] [address] Care Team Providers Care Flat Knitter Helper Name Role Phone Unavailable Primary Care Provider [...] Maintenance Insurance [address] [place] [id number] MEDICARE [facility] STANDARD 2062 [address] [place] [id number] [facility] MEDICAID STAND ADULT 2062 [address] [place] [address]62 [address] [place] [address] [facility] [address] [place] [id number]
--- OUTSIDE RECORDS SUMMARY | 2025-06-01 18:03 | XMS_ITS | Clinical Summary ---
Author Organization [facility] Address [address] [facility] [address] [place] [address] Phone Care Team Providers Care Claims Support Specialist Name Role Phone Pcp, Unknown Primary [...] file Medical Devices Not on file [facility] [place] [id number] [place] PART A & B [facility]IC[facility] A & B [address] [place], [place] [facility] A & B [address] [place], [place] [facility] PART A & B [facility] MEDICARE PART A & B Care Teams Claims Support Specialist Relationship Specialty Start Date End Date Pcp, Unknown PCP - General 07/02/23 Additional Source Comments The information contained in this document represents components of the legal health record. It is not the complete legal health record.[facility]
--- OUTSIDE RECORDS SUMMARY | 2025-06-01 18:03 | XMS_ITS | Data Portability ---
Author Organization [facility], [address] Address [address] [place] [address] Assessment No assessment recorded. Plan of Treatment Reminders Order Date Submit Date Provider Last Modified By Organization Details Last Modified Time Details Appointments None recorde d. Lab glucose , fingers tick, blood 023 09/01/19 [email or web address] [address] [address], [address] [place], [address], 13:59:19 Referral None recorde d. Procedures None recorde d. Surgeries None recorde d. Imaging None recorde d. Medication Orders None recorde d. Patient TargetsNo targets recorded. Patient Instructions Encounter Date Encounter Id Patient Instructions Last Modified By Organization Details Last Modified Time 09/01/2022 [id number] Health Education and Guidance [email or web address] Not available [...] Not Available [facility] [address] [place], [address], 09/01/2022 13:24:27 09/01/19 23 09/01/2022 gluco se, jime rstic k, blood blood sugar - fasting mg/dL 80-125 = normal Not Available [address] [place], [address], 09/01/2022 13:24:27 Result Notes None recorded. Problems [...] Diagnosis SNOMED-CT Code Diagnosis ICD10 Code Diagnosis IMO Codes Diagnosis Note [id number] [address] [place] [address] 12/29/2021 16:21:44 12/29/2021 16:55:03 [id number] [place] [address] [place] [address] 09/01/2022 11:38:27 09/01/2022 14:06:01 History and physical examination, pre-employment [id number] Z02.1 Diabetes m ellitus screening [id number] Z13.1 Health Concerns Section Related Observation LastModified [...] Gallardo 01/01/2023 [facility] Jameel Gallardo [phone] Jameel Gallardo
== END 2025-06-01 14:59 | disposition home or self-care (01) ==
LOC: HO.HKA 14:27
PROVIDERS: PCP Internal Medicine; Visit Provider Internal Medicine Hypertension Specialist
DX: R42 Dizziness and giddiness (principal); I10 Essential (primary) hypertension
CPT/HCPCS: 99213

== ENCOUNTER → 2025-06-01 14:26 | Outpatient (BNVA) | payer MEDICARE, MEDICAID, SELFPAY | PROVIDERS: PCP Internal Medicine; Visit Provider Internal Medicine Hypertension Specialist | DX: I10 Essential (primary) hypertension (principal); R42 Dizziness and giddiness; Z87.891 Personal history of nicotine dependence; E11.65 Type 2 diabetes mellitus with hyperglycemia; Z79.84 Long term (current) use of oral hypoglycemic drugs; Z79.85 Long-term (current) use of injectable non-insulin antidiabetic drugs; E66.9 Obesity, unspecified; Z68.41 Body mass index [BMI] 40.0-44.9, adult; E78.5 Hyperlipidemia, unspecified | CPT/HCPCS: 99212 ==

== ENCOUNTER 2025-06-29 09:43 | Outpatient (REF) | payer MEDICARE, MEDICAID, SELFPAY ==
--- OUTSIDE RECORDS SUMMARY | 2025-06-29 11:24 | XMS_ITS | Clinical Summary ---
Author Organization [employer] Address [address] [facility] 7t [place] [address] Care Team Providers Care Supervisor Pipe Manufacture Name Role Phone Unavailable Primary Care Provider [...] Maintenance Insurance [address] [place] [id number] MEDICARE [facility] STANDARD 2062 [address] [place] [id number] [facility] STAND ADULT 2062 [address] [place] [address] [place] [address] [facility] [address] [place] [id number]
--- OUTSIDE RECORDS SUMMARY | 2025-06-29 11:24 | XMS_ITS | Clinical Summary ---
Author Organization [facility] Address [address] [place] [address] Care Team Providers Care Musical String Maker Name Role Phone Esha Corbin MD Primary Care Provider [phone] Allergies Active Allergy Reactions Criticality Noted Date [...] CMIA Nonreactive Nonreactive 08/04/2024 11:01 AM EST [facility] Comment: Results show no [...] DO LAB BLOOD ORDERABLES Final R esult [facility] [address] AL[address] MullinsDannielle [address]AJI [address] from Last 3 Months or Most Recently Relevant to Health Maintenance Insurance [address]62 [address] [facility] [place] [id number] MEDICARE PART A & B [facility] Care Teams Musical String Maker Relationship Specialty Start Date End Date Esha Corbin MD [address] [place] [address] PCP - General 08/01/24
--- OUTSIDE RECORDS SUMMARY | 2025-06-29 11:25 | XMS_ITS | Clinical Summary ---
Author Organization [facility] Address [address] [facility] [address] [place] [address] Phone Care Team Providers Care Hand Molder And Caster Name Role Phone Pcp, Unknown Primary Care [...] file Medical Devices Not on file Insurance [facility] [employer] [place] [id number] [place] MEDIC[place] PART A & B [facility]IC[facility] PART A & B [address] [place], [place] [facility]IC[facility] PART A & B [address] [place], [place] [facility] PART A & B [facility] MEDICARE PART A & B Care Teams Hand Molder And Caster Relationship Specialty Start Date End Date Pcp, Unknown PCP - General 07/02/23 Additional Source Comments The information contained in this document represents components of the legal health record. It is not the complete legal health record.[facility]
[2025-06-29 14:34] LABS: Folate 13.5 ng/mL (> or = 4.0); Vitamin B12 388 pg/mL (200-900)
== END 2025-06-29 09:44 | disposition home or self-care (01) ==
LOC: HO.HMGCLDS 09:43
PROVIDERS: PCP Internal Medicine; Visit Provider Internal Medicine
DX: E53.8 Deficiency of other specified B group vitamins (principal)
CPT/HCPCS: 36415; 82607; 82746